=== PATIENT | female | born 1965 | race African-American/Black ===

== ENCOUNTER 2017-09-11 09:52 | Emergency (ER) | payer MEDICARE, SELFPAY ==
[2017-09-11 09:53] VITALS: BP 184/118; PULSE 96; RESP 20; TEMP 36.6; O2SAT 97; BMI 26.9
--- NOTE | 2017-09-11 10:06 | EKG12_ITS ---
Test Reason : CP Blood Pressure : / mmHG Vent. Rate : 085 BPM Atrial Rate : 085 BPM P-R Int : 184 ms QRS Dur : 084 ms QT Int : 372 ms P-R-T Axes : 073 069 049 degrees QTc Int : 442 ms Normal sinus rhythm Normal ECG Confirmed by JUANY JOSEPH ([id number]), power line installer SAY LITTLE ([id number]) on 09/13/2017 12:03:47 PM Referred By: HEATHER Confirmed By:JUANY JOSEPH
--- NOTE | 2017-09-11 10:07 | CT_ITS ---
STUDY: CTA CHEST REASON FOR EXAM: Female, 51 years old. 3 week history of a chest pain. History of sarcoidosis. RADIATION DOSAGE (If Supplied By Facility): CTDIvol = ( 11.62 ) mGy, DLP = ( 380.11 ) mGycm TECHNIQUE: The examination was performed with the intravenous administration of 75mL ml of Isovue 370 contrast material. Post-processing of the angiographic images was performed, with multiplanar reformation and 3D reconstruction. Individualized dose optimization techniques were used for this CT. COMPARISON: Comparison is made with prior examination dated October 30, 2016. FINDINGS: Normal enhancement of the main pulmonary artery and right and left pulmonary arteries. Normal enhancement of the bilateral peripheral pulmonary arteries. There is no demonstrated pulmonary embolism. Normal thoracic aorta and visualized great vessels. There is no demonstrated aortic dissection. Normal heart and pericardium. Normal mediastinum. There are bilateral hilar lymph nodes, which are normal in size and morphology. Normal visualized trachea and bronchi. The lungs are well expanded. There is evidence of a bronchiectasis and multiple cystic changes in the right upper lobe suggestive of scarring. Mild loss in the right upper lobe. There is also dense of bronchiectasis and cystic changes in the posterior aspect of the left upper lobe abutting the major fissure. Bronchiectasis is also seen in the right lower lobe as well as in the left lower lobe and lingular segment of the left upper lobe. This is in keeping with a honeycombing. Normal pleura. Normal chest wall structures. Normal osseous structures. Normal visualized upper abdomen. CT/CTA Chest W/WO Contrast IMPRESSION: There is no evidence of pulmonary embolism. Findings in keeping with honeycombing and interstitial fibrosis in both lungs suggest above the end-stage sarcoidosis. Electronically Signed: Fredy Olmos MD at 11:21 EST Tel [phone], Service support ,
--- NOTE | 2017-09-11 10:12 | ED.DCSUM_ITS ---
- ER Visit Summary Date of Service: 09/11/17 Chief Complaint: Chest pain History of Present Illness: The patient is a 51 F presenting with chest pain ?2- 1/2 weeks. Patient states this has been constant all day, every day. She saw her primary care physician 2.5 weeks ago who diagnosed her with pleurisy. He sent her to her sarcoidosis specialist in [place] Dr. Canales. She has a CT scheduled for later this week. She is concerned due to the persistence of the pain. She has been taking ibuprofen, oxycodone. She complains of sharp chest pain which is worsened with coughing and breathing. She has a history of sarcoidosis. She is not a smoker. No other complaints. Physical Examination: Vitals are stable. Patient is afebrile. Alert no acute distress. HEENT exam is unremarkable. Neck is supple. Lungs are clear and equal bilaterally. Right chest wall tenderness with no crepitus Heart is regular rate and rhythm. Abdomen is soft nontender nondistended. No guarding or rebound Extremities are unremarkable. Skin is warm and dry. No rash No focal neurologic deficit. Remainder of exam is unremarkable. Emergency Department Course and Treatment: EKG is sinus rate of 85 with no acute ischemic changes. She was given Dilaudid and Zofran IV. CBC shows a white count 11.8, hemoglobin 11.0. Chemistries unremarkable. Troponin is negative. CTA chest shows there is no evidence of pulmonary embolism. Findings in keeping with honeycombing and interstitial fibrosis in both lungs suggest above the end-stage sarcoidosis. Patient is feeling improved. She states she has been dealing with her sarcoidosis for several years. She is aware that it is end-stage. She will follow-up with her specialist in [place]. She is advised to continue her oxycodone as directed. Advised return ED if worsening complaints. Disposition: Discharge home Impression: Pleuritic chest pain This note was generated with [employer] dictation software. It may contain incorrect words, spelling, and punctuation that were not noted in review of the chart prior to signing ED Disposition - Plan for ED Patient: Chief Complaint: Chest Pain Referrals: John Sears MD [Primary Care Provider] -
[2017-09-11] MEDS: Ondansetron 4 MG/2 ML Vial IV (10:29)
[2017-09-11] MEDS: HYDROmorphone HCL 0.5 MG/0.5 ML SYRINGE IV (10:29)
[2017-09-11 10:34] LABS: Absolute Lymphocyte Count 3.58 X10^3/ul (0.83-4.51); Absolute Neutrophil Count 5.6 X10^3/uL (2.0-7.7); Basophil# 0.15 X10^3/uL; Basophil% 1.3 % (0-1); Differential Indicated SCAN CRITERIA MET; Eosinophil# 0.86 X10^3/uL; Eosinophils% 7.3 % (0-5); Hematocrit 31.9 % (37-47); Lymphocyte # 3.58 X10^3/ul (4.0); Lymphocyte % 30.3 % (19-41); Mean Corp Hgb Conc 34.5 g/gl (32-36); Mean Corpuscular Volume 84.2 fL (81-99); Mean Platelet Vol. 8.6 fl (6.2-12.0); Monocyte# 1.62 X10^3/uL; Monocyte% 13.7 % (0-10); Neutrophil # 5.57 X10^3/uL (2.7-7.7); Neutrophil % 47.2 % (47-70); POSITIVE COUNT NO; POSITIVE DIFFERENTIAL YES; POSITIVE MORPHOLOGY NO; Platelet Count 326 K/mm3 (150-450); RBC Distribution Width CV 15.2 % (11.6-14.6); RBC Distribution Width SD 46.3 fl (35.1-43.9); Red Blood Count 3.79 M/mm3 (4.2-5.4); White Blood Count 11.8 K/mm3 (4.4-11.0)
[2017-09-11 10:43] LABS: Anion Gap 9 (5-15); BUN 9 mg/dL (7-18); BUN/Creat Ratio 9.1 RATIO (10-20); Calcium,Total 8.7 mg/dL (8.5-10.1); Chloride 108 mmol/L (98-107); Creatinine, Serum 0.99 mg/dL (0.55-1.02); Differential Comment SCANNED; EST Glomerular Filtration Rate 63 mL/min (>60); Est Glom Filt Rate - Afr Amer 76 mL/min (>60); Estimated Creatinine Clearance 53.17 ml/min; Glucose 87 mg/dL (70-110); Potassium 4.3 mmol/L (3.5-5.1); Sodium Level 139 mmol/L (136-145)
--- NOTE | 2017-09-11 12:02 | ED.DEP ---
ED Disposition - Plan for ED Patient: Chief Complaint: Chest Pain Instructions: ED Chest Pain Pleurisy Prescriptions: Lidocaine [Lidoderm Patch] 1 patch TOPICAL DAILY #5 patch Referrals: John Sears MD [Primary Care Provider] -
== END 2017-09-11 12:36 | disposition home or self-care (01) ==
LOC: ED 10:15
PROVIDERS: Emergency Provider Emergency Medicine; Family Provider Family Medicine; PCP Family Medicine
DX: R09.1 Pleurisy (principal); D86.9 Sarcoidosis, unspecified; Z79.52 Long term (current) use of systemic steroids; Z79.899 Other long term (current) drug therapy
CPT/HCPCS: 71275; 80048; 84484; 85025; 93005; 96374; 96375; 99285; Q9967; A4216; J2405

== ENCOUNTER 2017-10-04 10:40 | Emergency (ER) | payer MEDICARE, SELFPAY ==
[2017-10-04 10:41] VITALS: BP 130/91; PULSE 101; RESP 22; TEMP 36.7; O2SAT 98; BMI 27.6
--- NOTE | 2017-10-04 11:02 | ED.VISSUMM ---
- ER Visit Summary Date of Service: 10/04/17 Chief Complaint: Headache and nasal congestion that started yesterday History of Present Illness: The patient is a 51 F who presents with frontal headache, nasal congestion and hoarse voice that started yesterday. She does complain of cough that is productive. She denies fever, chills night sweats. She denies photophobia, blurred vision, loss of vision or double vision. Denies earache. She denies chest pain or shortness of breath. She denies any leg pain, swelling or discoloration. She denies rash. She has a history of sarcoidosis and hypertension. Physical Examination: Signs are remarkable blood pressure 130/91, heart rate 101 respiratory 22. She does not appear in any distress. There is no frontal, ethmoid or maxillary sinus tenderness. Nares are remarkable for clear drainage. TMs normal. Posterior pharynx reveals postnasal drainage. Uvula is midline. There is no exudate. Trachea is midline with no stridor. Voice is hoarse. Lungs are clear to auscultation with good movement of air bilateral. Heart is rapid and regular without murmur, gallop or rub There is no asymmetry, swelling, discoloration, leg vein distention, palpable cords or tenderness along the distribution of the deep venous system. Test Results: None Emergency Department Course and Treatment: Patient was told she has an upper respiratory infection and her discomfort is from sinus pressure. She does not have a sinus infection. Treatment Plan: Decongestant/nasal spray as instructed on the vial. Disposition: Discharged to home Impression: 1. Acute viral upper respiratory infection 2. Sinus pressure headache This note was generated with [employer] dictation software. It may contain incorrect words, spelling, and punctuation that were not noted in review of the chart prior to signing ED Disposition - Plan for ED Patient: Disposition: Home or Assisted Living Chief Complaint: Headache Instructions: ED Headache Sinus, ED URI Viral Prescriptions: Oxymetazolone 0.05% [Afrin (BKC)] 15 spray NASAL BID #1 spray.btl Referrals: John Sears MD [Primary Care Provider] - 10-14 Days if not better Additional Instructions: Your prescription was electronically transmitted to [facility]
[2017-10-04 11:20] VITALS: BP 129/76; PULSE 71; RESP 16; O2SAT 98
== END 2017-10-04 11:21 | disposition home or self-care (01) ==
LOC: ED 11:19
PROVIDERS: Emergency Provider Emergency Medicine; Family Provider Family Medicine; PCP Family Medicine
DX: J06.9 Acute upper respiratory infection, unspecified (principal); D86.9 Sarcoidosis, unspecified; J44.9 Chronic obstructive pulmonary disease, unspecified; I10 Essential (primary) hypertension; Z72.0 Tobacco use; Z79.899 Other long term (current) drug therapy
CPT/HCPCS: 99284

== ENCOUNTER 2017-10-19 10:51 | Emergency (ER) | payer MEDICARE, SELFPAY ==
[2017-10-19 10:51] VITALS: BP 98/72; PULSE 112; RESP 23; TEMP 36.3; O2SAT 93; BMI 28.8
--- NOTE | 2017-10-19 11:07 | CT_ITS ---
STUDY: CT ABDOMEN AND PELVIS WITH CONTRAST REASON FOR EXAM: Female, 51 years old. Right lower quadrant pain and hypotension. Patient has a history of sarcoidosis. RADIATION DOSAGE (If Supplied By Facility): CTDIvol = ( 13.15 ) mGy, DLP = ( 653.14 ) mGycm TECHNIQUE: Transaxial images were obtained from the dome of the diaphragm to the symphysis pubis without oral contrast. 100ML ml of Isovue 300 contrast was administered. Sagittal and coronal images were reconstructed. Individualized dose optimization techniques were used for this CT. COMPARISON: Comparison is made with prior study dated November 02, 2015. FINDINGS: Once again, is evidence of interstitial fibrosis at the lung bases with multiple cystic changes in keeping with bronchiectasis and honeycombing. There is superimposed groundglass appearance most likely secondary to the progressive scarring. The visualized portions of the heart are within normal limits. Normal liver. Normal gallbladder and extrahepatic biliary system. Normal spleen. Normal pancreas. Normal bilateral adrenal glands. There are 2 small cysts in the upper midportion of the right kidney. Normal left kidney. Normal visualized stomach. Normal small intestine. Normal colon. The appendix is visualized and appears normal. There is scattered atherosclerotic calcification of the abdominal aorta, without a demonstrated aneurysm. Normal inferior vena cava. Normal retroperitoneum. Normal urinary bladder. Normal abdominal wall. Disc space narrowing and disc degeneration at the L5-S1 level. CT/Abdomen/Pelvis W IV Cont ONLY IMPRESSION: Chronic changes at the lung bases. Stable small cysts in the right kidney. No acute abnormality is seen. Electronically Signed: Fredy Olmos MD at 13:07 EST Tel [phone], Service support ,
--- NOTE | 2017-10-19 11:07 | EKG12_ITS ---
Test Reason : NAUSEA Blood Pressure : / mmHG Vent. Rate : 105 BPM Atrial Rate : 105 BPM P-R Int : 154 ms QRS Dur : 080 ms QT Int : 352 ms P-R-T Axes : 066 098 042 degrees QTc Int : 465 ms Sinus tachycardia Otherwise normal ECG Confirmed by NIDIA GONZALES, MARCELINO ([id number]), editor in chief newspaper SAY LITTLE ([id number]) on 10/23/2017 4:35:48 PM Referred By: SHARI Confirmed By:MARCELINO JACOB MD
--- NOTE | 2017-10-19 11:14 | ED.DCSUM_ITS ---
- ER Visit Summary Date of Service: 10/19/17 Chief Complaint: Abdominal pain History of Present Illness: The patient is a 51 F presenting with 2 days of gradual onset vomiting followed by right lower quadrant pain that is not worse. Also dyspnea and nonproductive cough for the past week, also gradual in onset. History of pulmonary sarcoidosis. States she had a normal bowel movement today, no blood, diarrhea, constipation. Has had no diarrhea with this. No known sick contacts with similar. No known fevers. She had a bilateral tubal ligation in the past, no other abdominal surgeries. Physical Examination: Acute distress. Abdomen tender in the right lower quadrant, no guarding or rebound tenderness. Positive so as sign, negative obturator, Rovsing signs. No other areas of abdominal tenderness. No distention. Hypoactive bowel sounds. Lungs are diminished throughout, inspiratory wheezes, no rhonchi or rales or respiratory distress. No peripheral edema. No JVD. Test Results: Leukocytosis of 28, she has had white counts higher than this in the past. She has chronic leukocytosis. Mild creatinine elevation of 1.3. Urine shows 500 leukocyte esterase, some white blood cells, but more epithelials. Negative nitrite. Sent for culture. CT abdomen/pelvis negative for acute abnormality. Emergency Department Course and Treatment: Since the hospital is out of [facility], patient was given Phenergan in addition to some morphine for the pain. On reevaluation she feels better and is tolerating oral fluids without difficulty. She provides additional history, saying that because of her upper respiratory symptoms, she was prescribed Augmentin shortly before the symptoms started by her sarcoidosis/pulmonary clinic in [facility]. She states that she took Augmentin the first day and felt a little nauseated, but the next day she started vomiting uncontrollably and has not taken the medicine since. She has no urinary symptoms, so instead of starting her on another antibiotic, given the negative chest x-ray, I advised supportive care along with prn Phenergan, and following up at the pulmonary clinic, discontinuing the Augmentin. I will not place her on a new antibiotic at this time given her GI reaction to this and other antibiotics in the past, unless the urine culture returns positive. She is asking for applied mathematician that is closer to see. I will give her a referral to [facility] pulmonology. Treatment Plan: Prn promethazine, f/u Disposition: Discharge home Impression: Acute gastritis Right lower quadrant abdominal muscular strain Interstitial lung disease Pulmonary sarcoidosis This note was generated with [employer] dictation software. It may contain incorrect words, spelling, and punctuation that were not noted in review of the chart prior to signing ED Disposition - Plan for ED Patient: Disposition: Home or Assisted Living Chief Complaint: Nausea/Vomiting Instructions: ED Gastritis Prescriptions: ProMETHAzine [Phenergan] 25 mg PO Q6H PRN PRN #12 tab PRN Reason: Nausea Referrals: Chris White MD [NON-STAFF] - ([facility] pulmonology) John Sears MD [Primary Care Provider] - Additional Instructions: Discontinue Augmentin. Contact your sarcoidosis specialist who prescribed the medication for further instructions regarding possible new prescription.
[2017-10-19] MEDS: Ipratropium/Albuterol Sulfate 3 ML AMPUL.NEB INHALATION (11:19)
[2017-10-19 11:22] VITALS: PULSE 106; RESP 20
[2017-10-19] MEDS: Ondansetron 4 MG/2 ML Vial IV (11:38)
[2017-10-19] MEDS: 0.9% Normal Saline 1,000 ML 999 ML IV (11:38)
[2017-10-19 11:41] LABS: ALB/GLOB Ratio 0.6 RATIO (0.9-2.4); AST(SGOT) 18 U/L (15-37); Alanine Aminotransfer ALT/SGPT 11 U/L (13-56); Alkaline Phosphatase 105 U/L (45-117); Anion Gap 8 (5-15); BUN 15 mg/dL (7-18); BUN/Creat Ratio 12.1 RATIO (10-20); Calcium,Total 8.8 mg/dL (8.5-10.1); Chloride 100 mmol/L (98-107); Creatinine, Serum 1.24 mg/dL (0.55-1.02); EST Glomerular Filtration Rate 48 mL/min (>60); Est Glom Filt Rate - Afr Amer 58 mL/min (>60); Estimated Creatinine Clearance 42.45 ml/min; Glucose 121 mg/dL (74-106); Potassium 3.5 mmol/L (3.5-5.1); Sodium Level 134 mmol/L (136-145)
[2017-10-19 11:48] LABS: Red Blood Count 4.19 M/mm3 (4.2-5.4); White Blood Count 28.6 K/mm3 (4.4-11.0)
[2017-10-19 11:49] LABS: Differential Indicated SCAN CRITERIA MET; Hematocrit 36.1 % (37-47); Hemoglobin 12.5 g/dl (12.0-15.0); Mean Corp Hgb Conc 34.6 g/gl (32-36); Mean Corpuscular Hgb 29.8 pg (27.0-32.0); Mean Corpuscular Volume 86.2 fL (81-99); Mean Platelet Vol. 10.5 fl (6.2-12.0); POSITIVE COUNT NO; POSITIVE DIFFERENTIAL YES; POSITIVE MORPHOLOGY NO; Platelet Count 314 K/mm3 (150-450); RBC Distribution Width CV 14.3 % (11.6-14.6); RBC Distribution Width SD 44.4 fl (35.1-43.9)
[2017-10-19 11:50] LABS: Absolute Lymphocyte Count 1.31 X10^3/ul (0.83-4.51); Absolute Neutrophil Count 25.9 X10^3/uL (2.0-7.7); Basophil# 0.04 X10^3/uL; Basophil% 0.1 % (0-1); Eosinophil# 0.04 X10^3/uL; Eosinophils% 0.1 % (0-5); Lymphocyte # 1.31 X10^3/ul (4.0); Lymphocyte % 4.6 % (19-41); Monocyte# 1.23 X10^3/uL; Monocyte% 4.3 % (0-10); Neutrophil # 25.91 X10^3/uL (2.7-7.7); Neutrophil % 90.6 % (47-70)
[2017-10-19 11:56] LABS: Absolute Nucleated RBC Count 0.08 10^3/uL (0-5); NRBC Flagged by Analyzer 0.3 % (0-5)
--- NOTE | 2017-10-19 12:23 | RAD_ITS ---
STUDY: X-RAY CHEST REASON FOR EXAM: Female, 51 years old. Shortness of breath. TECHNIQUE: PA and lateral views of the chest. COMPARISON: Comparison is made with prior study dated August 13, 2017. FINDINGS: EKG electrodes are seen. Benign was evidence of diffuse bilateral airspace disease superimposed on chronic interstitial fibrosis with honeycombing. There is no demonstrated pleural abnormality. Normal size heart. Mildly enlarged bilateral jordin most likely representing small lymph nodes. Normal visualized pulmonary arteries. Normal visualized aortic arch and descending thoracic aorta. Normal visualized thoracic spine. Normal visualized ribs, clavicles, and shoulders. There is no demonstrated abnormality of the visualized soft tissue structures of the upper abdomen. RAD/Chest PA and Lateral IMPRESSION: New airspace disease in both lungs superimposed on chronic interstitial fibrosis with honeycombing. Electronically Signed: Fredy Olmos MD at 13:14 EST Tel [phone], Service support ,
[2017-10-19 12:53] LABS: Bacteria 0 SEEN /hpf (None Seen); Mucous, Urine 0 SEEN /hpf (<or=2+); Red Blood Cells-Urine 0 SEEN /hpf (0-5)
[2017-10-19 12:59] LABS: Color, Urine Yellow (Yellow); Glucose, Dipstick Normal (Normal); Ketone-Dipstick Negative (Negative); Leukocyte Esterase-Dipstick 500 /ul (Negative); Nitrite-Dipstick Negative (Negative); Occult Blood-Urine 10 /ul (Negative); Protein-Dipstick 30 mg/dl (Negative); Urine Bilirubin Dipstick Negative (Negative); Urine Clarity Sl. Cloudy (Clear); Urine Urobilinogen Normal (Normal); Urine pH 6.5 (5.0 - 8.0)
[2017-10-19 13:06] VITALS: BP 96/65; PULSE 103; RESP 24; O2SAT 100
[2017-10-19 13:06] LABS: Squamous Epithelial Cells - UA 25-50 SEEN /hpf (5-10); White Blood Cells 10-25 SEEN /hpf (0-5)
[2017-10-19 14:08] VITALS: BP 95/70; PULSE 106; RESP 20; O2SAT 90
[2017-10-19 15:01] VITALS: BP 105/72; PULSE 100; RESP 20; O2SAT 91
[2017-10-19 15:58] VITALS: BP 124/91; PULSE 77; RESP 16; O2SAT 94
== END 2017-10-19 15:59 | disposition home or self-care (01) ==
PROVIDERS: Emergency Provider Emergency Medicine; Family Provider Family Medicine; PCP Family Medicine
DX: K29.00 Acute gastritis without bleeding (principal); J84.9 Interstitial pulmonary disease, unspecified; D86.0 Sarcoidosis of lung; S39.011A Strain of muscle, fascia and tendon of abdomen, initial encounter; X58.XXXA Exposure to other specified factors, initial encounter; Y92.9 Unspecified place or not applicable; I10 Essential (primary) hypertension; Z79.899 Other long term (current) drug therapy
CPT/HCPCS: 71046; 74177; 80053; 81001; 84484; 85025; 87086; 87088; 93005; 94640; 96361; 96374; 96375; 99285; J7030; Q9967; J2405

== ENCOUNTER 2018-01-17 15:03 | Inpatient (IN) | payer MEDICARE, SELFPAY ==
[2018-01-17] VITALS (16 sets, daily range): BP systolic 153–189; BP diastolic 99–139; PULSE 80–119; RESP 12–39; TEMP 36.3–36.4; O2SAT 94–100; BMI 24.3; BMI 27.6
--- NOTE | 2018-01-17 15:20 | CT_ITS ---
STUDY: CT BRAIN WITHOUT CONTRAST REASON FOR EXAM: Female, 52 years old. Altered mental status RADIATION DOSAGE (If Supplied By Facility): CTDIvol = ( 44.99 ) mGy, DLP = ( 711.75 ) mGycm TECHNIQUE: Transaxial CT imaging of the brain was performed without administration of intravenous contrast material. Individualized dose optimization techniques were used for this CT. COMPARISON: 01/23/2017 FINDINGS: There is no acute bleed or infarct. There are normal white matter tracts. The ventricles are normal in configuration. There is no hydrocephalus. The visualized paranasal sinuses are clear. The mastoid air cells are well aerated. There is no skull fracture. CT/Brain/Head without Contrast IMPRESSION: No acute intracranial abnormality. Electronically Signed: Momo Andres, at 16:24 EDT Tel , Service support ,
--- NOTE | 2018-01-17 15:20 | EKG12_ITS ---
Test Reason : ALT LOC Blood Pressure : / mmHG Vent. Rate : 110 BPM Atrial Rate : 110 BPM P-R Int : 184 ms QRS Dur : 084 ms QT Int : 344 ms P-R-T Axes : 072 092 047 degrees QTc Int : 465 ms Sinus tachycardia Right atrial enlargement Borderline ECG Confirmed by JUANY JOSEPH ([id number]), communications editor SAY LITTLE ([id number]) on 01/28/2018 6:33:24 PM Referred By: SARAH Confirmed By:JUANY JOSEPH
[2018-01-17] MEDS: 0.9% Normal Saline 1,000 ML 1000 ML IV (15:41)
--- NOTE | 2018-01-17 15:48 | ED.DCSUM_ITS ---
- ER Visit Summary Date of Service: 01/17/18 Chief Complaint: Really sleepy History of Present Illness: The patient is a [address] John Sears. She is a poor informant. She reports that for the past 2 days she has been sleeping more than usual. On review of systems she complains of chills. She has a chronic cough that is unchanged. States that she is short of breath, but it is not severe enough that she has been wearing her home O2. She denies any abdominal pain, nausea, vomiting, or diarrhea. No dysuria or frequency. No rash or headache. She complains of generalized weakness. Physical Examination: Vitals: 97.5, 182/139, 116, 37, 98% on 3 L nasal cannula. General: Well-nourished and well-developed. Head: Normocephalic atraumatic. Neck: Supple, no lymphadenopathy. No JVD. Nontender. Cardiovascular: Tachycardic regular rhythm. No murmurs. Respiratory: No respiratory distress. Clear to auscultation bilaterally. Abdominal: Soft, nontender, nondistended, normal bowel sounds. No guarding, rebound, or peritoneal signs. Back: Nontender. Extremities: Nontender, no edema. Skin: Normal color, no rash. Neurologic: Alert and oriented ?3. Cranial nerves II through XII are intact. Normal strength and sensation. Psych: Normal affect. Test Results: EKG is sinus tachycardia [address] changes. Is unchanged since October. CBC is more for a white count of 22.2 with 77 segmented neutrophils and 8 lymphocytes. Her last white count was 28.6 on October 19. Her white count has ranged between 11.8 and 34.4 since 2016. Chem-7 is more for BUN of 43 and glucose of 125. LFTs marked for total protein 8.9 globulin 5.0. Alk phos is 173. Ammonia level is 30. UA has greater than 100 whites and 10- 25 red blood cells with 4+ bacteria. Also shows trichomonas. Troponin is negative. CPK is 55. Tox screen is negative. Alcohol level is negative. Lactic acid is 1.9. Chest x-ray shows chronic changes of bronchiectasis and sarcoidosis. It is improved since October of this year. CT brain shows no acute disease. ABG shows a pH of 7.315 with a CO2 of 53.3. Repeat ABG after approximately 90 minutes on BiPAP shows a pH of 7.3 with a CO2 is 55.3. Emergency Department Course and Treatment: Patient had not taken her Cozaar today. She was given that orally. She was also given 20 mg of labetalol IV. Patient was given albuterol and Atrovent aerosols. She is given Solu-Medrol IV. She was given Rocephin IV for the UTI and Flagyl IV for the trichomonas. Despite the fact the patient's CO2 has elevated slightly from her prior ABG the patient is much more awake and conversant. She does not need to be intubated. Treatment Plan: Patient was discussed with Dr. Blankenship. She will be admitted to the hospital for further evaluation and treatment. Disposition: Admitted in improved but serious condition. Impression: 1. UTI. 2. Trichomonas vaginitis. 3. Acute on chronic respiratory failure, on BiPAP. 4. Critical care time 30 minutes. This note was generated with [employer] dictation software. It may contain incorrect words, spelling, and punctuation that were not noted in review of the chart prior to signing ED Disposition - Plan for ED Patient: Chief Complaint: Alt LOC
[2018-01-17 15:55] LABS: Bedside Glucose 156 mg/dL (70-110)
--- NOTE | 2018-01-17 16:10 | RAD_ITS ---
STUDY: X-RAY CHEST REASON FOR EXAM: Female, 52 years old. Shortness of breath TECHNIQUE: Frontal and lateral views of the chest COMPARISON: 10/19/2017 and 08/13/2017 FINDINGS: When compared with 10/19/2017, the previously seen bilateral airspace opacities have resolved. There are stable fibrotic changes when compared with 07/24/2017. There are no pleural effusions. The heart is normal in size. The visualized osseous structures are within normal limits. RAD/Chest PA and Lateral IMPRESSION: Stable fibrotic changes when compared with 07/24/2017. Resolution of the superimposed airspace opacities that were seen on 10/19/2017. Electronically Signed: Momo Andres, at 16:36 EDT Tel , Service support ,
[2018-01-17 16:11] LABS: Allen Test POS; Base Excess 1 mmol/L (-2 to +2); Bicarbonate 27.2 mmol/L (22-26); Blood Gas Specimen Type ART; O2 Delivery Device Nasal Can; PO2 102 mmHG (75-100); SITE L Radial; SO2 97 % (95-99); Time Given 1600; Total Carbon Dioxide 29 mmol/L; pCO2 53.3 mmHg (35-45); pH 7.32 (7.35-7.45)
[2018-01-17 16:12] LABS: Absolute Lymphocyte Count 1.77 X10^3/ul (0.83-4.51); Absolute Neutrophil Count 17.2 X10^3/uL (2.0-7.7); Basophil# 0.09 X10^3/uL; Basophil% 0.4 % (0-1); Eosinophil# 0.18 X10^3/uL; Eosinophils% 0.8 % (0-5); Hematocrit 40.2 % (37-47); Hemoglobin 13.9 g/dl (12.0-15.0); Lymphocyte # 1.77 X10^3/ul (4.0); Mean Corp Hgb Conc 34.6 g/gl (32-36); Mean Corpuscular Hgb 28.7 pg (27.0-32.0); Mean Corpuscular Volume 83.1 fL (81-99); Mean Platelet Vol. 9.1 fl (6.2-12.0); Monocyte# 2.91 X10^3/uL; Monocyte% 13.1 % (0-10); Neutrophil # 17.16 X10^3/uL (2.7-7.7); Neutrophil % 77.4 % (47-70); Platelet Count 368 K/mm3 (150-450); RBC Distribution Width CV 15.4 % (11.6-14.6); RBC Distribution Width SD 46.3 fl (35.1-43.9); Red Blood Count 4.84 M/mm3 (4.2-5.4); White Blood Count 22.2 K/mm3 (4.4-11.0)
[2018-01-17 16:13] LABS: Differential Indicated SCAN CRITERIA MET; POSITIVE COUNT NO; POSITIVE DIFFERENTIAL YES; POSITIVE MORPHOLOGY NO
[2018-01-17] MEDS: Losartan Potassium 50 MG Tablet PO ×2 (16:15→22:20)
[2018-01-17 16:17] LABS: CPK Total, Creatine Kinase 55 U/L (26-192)
[2018-01-17 16:19] LABS: ALB/GLOB Ratio 0.8 RATIO (0.9-2.4); AST(SGOT) 18 U/L (15-37); Alanine Aminotransfer ALT/SGPT 21 U/L (13-56); Albumin, Serum 3.9 g/dL (3.2-5.0); Alkaline Phosphatase 173 U/L (45-117); Anion Gap 11 (5-15); BUN 43 mg/dL (7-18); BUN/Creat Ratio 43.7 RATIO (10-20); Calcium,Total 9.8 mg/dL (8.5-10.1); Chloride 100 mmol/L (98-107); Creatinine, Serum 0.98 mg/dL (0.55-1.02); EST Glomerular Filtration Rate 63 mL/min (>60); Est Glom Filt Rate - Afr Amer 76 mL/min (>60); Estimated Creatinine Clearance 50.67 ml/min; Glucose 125 mg/dL (74-106); Potassium 4.3 mmol/L (3.5-5.1); Protein, Total 8.9 g/dL (6.4-8.2); Sodium Level 137 mmol/L (136-145)
[2018-01-17 16:23] LABS: Lactic Acid 1.9 mmol/L (0.4-2.0)
[2018-01-17 16:43] LABS: Mucous, Urine 0 SEEN /hpf (<or=2+)
[2018-01-17 16:50] LABS: Absolute Nucleated RBC Count 0.06 10^3/uL (0-5); NRBC Flagged by Analyzer 0.3 % (0-5)
[2018-01-17 17:07] LABS: Color, Urine Yellow (Yellow); Glucose, Dipstick Normal (Normal); Ketone-Dipstick 50 mg/dl (Negative); Leukocyte Esterase-Dipstick 500 /ul (Negative); Nitrite-Dipstick Negative (Negative); Occult Blood-Urine 150 /ul (Negative); Protein-Dipstick 100 mg/dl (Negative); Urine Bilirubin Dipstick Negative (Negative); Urine Clarity Cloudy (Clear); Urine Urobilinogen Normal (Normal)
[2018-01-17 17:23] LABS: Amphetamine Urine VISTA NEGATIVE (<1000 ng/mL); Barbiturate Urine VISTA NEGATIVE (< 200 ng/mL); Benzodiazepine Urine VISTA NEGATIVE (< 200 ng/mL); Cocaine Urine VISTA NEGATIVE (< 300 ng/mL); Ecstacy Urine VISTA NEGATIVE (< 500 ng/mL); Methadone Urine VISTA NEGATIVE (< 300 ng/mL); PCP Urine VISTA NEGATIVE (< 25 ng/mL); THC Urine VISTA NEGATIVE (< 50 ng/mL); Vista UDS pH Range 6
[2018-01-17 17:42] LABS: Trichomonas 25-50 SEEN /hpf (None Seen); White Blood Cells >100 SEEN /hpf (0-5)
[2018-01-17 17:44] LABS: Bacteria 4+ /hpf (None Seen); Red Blood Cells-Urine 10-25 SEEN /hpf (0-5); Squamous Epithelial Cells - UA 5-10 SEEN /hpf (5-10)
[2018-01-17 17:45] LABS: Amorphous Sediment 4+
[2018-01-17 17:46] LABS: Allen Test POS; Base Excess 1 mmol/L (-2 to +2); Bicarbonate 27.4 mmol/L (22-26); Blood Gas Specimen Type ART; EPAP 5; FI02 30; IPAP 10; PO2 96 mmHG (75-100); RR 12; SITE L Radial; SO2 96 % (95-99); Time Given 1735; Total Carbon Dioxide 29 mmol/L; pCO2 55.3 mmHg (35-45)
[2018-01-17] MEDS: Ceftriaxone 1 GM/50 ML BAG IV (18:07)
[2018-01-17] MEDS: MethylPREDNISolone 125 MG/2 ML Vial IV (19:00)
--- NOTE | 2018-01-17 19:00 | HP.PCM_ITS ---
<Gaetano Prince - Last Filed: 01/17/18 18:46> Problem List (1) Sepsis Status: Acute (2) Cystitis Status: Acute (3) Acute metabolic encephalopathy Status: Acute (4) Chronic respiratory failure Status: Chronic (5) Bronchiectasis Status: Chronic (6) COPD (chronic obstructive pulmonary disease) Status: Chronic (7) HTN (hypertension) Status: Chronic (8) Sarcoidosis Status: Chronic History of Present Illness Date of Admission: 01/17/18 Chief Complaint: lethargy The patient is a 52 year old F with a hx of bronchiectasis, sarcoidosis, COPD, chronic respiratory failure on 4 lpm O2 at home, HTN, who presents to the ER with increased lethargy x 4 days. Her asked if she needed to come to the hospital this morning because she did not look well and seemed tired, however she stated she did not feel she needed to. Her neighbour found her later , more tired and more confused and called the squad. In the ER she seemed lethargic and an ABG was done showing CO2 retention and acidosis and she was placed on bipap. On exam she denied SOB. She states she has not been more SOB and has not had any worsening of her chronic cough. She is lethargic and closing her eyes, but she is responsive to questions. She states she does not want the bipap on. She wears O2 at all times at 4 lpm. She has no fever or chills, no nausea/vomiting/diarrhea/fever/chills/abdominal pain/dysuria. [] Past Medical History Past Medical History (Chronic Problems): Chronic Problems (Last Updated 10/01/17 @ 07:25 by Ivonne Sunshine) Chronic respiratory failure (Chronic) Chronic cough (Chronic) Bronchiectasis (Chronic) Asthma (Chronic) COPD (chronic obstructive pulmonary disease) (Chronic) Chronic pain (Chronic) Cough (Chronic) HTN (hypertension) (Chronic) Sarcoidosis (Chronic) Medical History: Medical History (Last Updated 10/01/17 @ 07:25 by Ivonne Sunsihne) Costochondritis, acute (Acute) M94.0 Acute upper respiratory infection (Acute) J06.9 Chronic cough (Chronic) R05 Bronchiectasis with acute exacerbation (Acute) J47.1 Acute suppurative otitis media (Acute) H66.009 Bronchiectasis (Chronic) J47.9 Acute exacerbation of chronic obstructive pulmonary disease (Acute) J44.1 Asthma (Chronic) J45.909 COPD (chronic obstructive pulmonary disease) (Chronic) J44.9 Chronic pain (Chronic) G89.29 Hypokalemia (Acute) E87.6 Left otitis media (Acute) H66.92 Hypokalemia (Acute) E87.6 Leukocytosis (Acute) D72.829 Chest pain (Acute) R07.9 unknown etiology Pleuritic chest discomfort (Acute) Cough (Chronic) R05 Overdose (Acute) T50.901A HTN (hypertension) (Chronic) I10 Sarcoidosis (Chronic) D86.9 Allergies cephalexin monohydrate [From Keflex] Allergy (Mild, Verified 01/17/18 15:09) Itching doxycycline Adverse Reaction (Verified 01/17/18 15:09) Vomiting moxifloxacin HCl [From Avelox] Adverse Reaction (Verified 01/17/18 15:09) Vomiting Home Medications: Ambulatory Orders Medication Instructions Recorded Albuterol Inhaler [Ventolin Hfa] 1 - 2 puff INHALATION Q6H PRN PRN 09/05/16 Losartan Potassium [Cozaar] 50 mg PO BID 09/06/16 HydrOXYzine [Atarax] 50 mg PO Q8 10/12/16 Leflunomide 20 mg PO DAILY 07/31/17 Albuterol Aerosols [Ventolin 2.5 mg INHALATION Q4H PRN PRN 08/13/17 Aerosols] Sulfamethoxazole/Trimethoprim 1 tab PO MOWEFR 08/13/17 [Sulfamethoxazole-Tmp Ds Tablet] Oxymetazoline 0.05% [Afrin (BKC)] 15 spray NASAL BID #1 spray.btl 10/04/17 Cholecalciferol (Vitamin D3) 5,000 unit PO QWEEK 01/17/18 [Vitamin D3] Clonidine HCl 0.2 mg PO Q8 01/17/18 Duloxetine HCl 20 mg PO DAILY 01/17/18 Levocetirizine Dihydrochloride 5 mg PO DAILY 01/17/18 [Xyzal] Mometasone Furoate [Elocon] 15 gm TP BID 01/17/18 Naproxen 500 mg PO BID PRN PRN 01/17/18 Oxycodone [Oxyir] 5 mg PO Q6H PRN PRN 01/17/18 Paroxetine HCl [Paxil] 30 mg PO BID 01/17/18 Prednisone See Taper PO DAILY 01/17/18 Tizanidine HCl 4 mg PO BID 01/17/18 proMETHazine tablet [Phenergan] 12.5 mg PO Q6H PRN PRN 01/17/18 Surgical History: Surgical History (Last Updated 10/01/17 @ 07:25 by Ivonne Sunshine) History of lung biopsy (Resolved) Z98.890 History of tubal ligation (Resolved) Z98.51 Surgical History: - - BLTL. 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 Denies: Chills, Fever, Weight Change HEENT: Denies: Head Aches, Sinus Congestion, Sinus Drainage Cardiovascular: Denies: Chest Pain, Palpitations Respiratory: Denies: Cough, Shortness of Breath, Shortness of breath at rest, Shortness of breath upon exertion, Sputum production, Wheezing Gastrointestinal: Denies: Abdominal Pain, Nausea, Vomiting Genitourinary: Denies: Dysuria Musculoskeletal: Denies: Joint Pain, Joint Tenderness Skin: Denies: Rash, Wounds Neurological: Denies: Numbness, Tingling, Focal weakness Psychiatric: Denies: Anxiety, Depression, Homicidal Ideations, Suicidal Ideations Hematologic/ Lymphatic: Denies: Easy Bruising, Easy Bleeding VTE Information - Inpt Only VTE Present on Admission: No VTE Mechan Device Prophylaxis: None VTE Pharm Prophylaxis ordered?: Yes Patient Problems: Active and Suspected Problems (Last Updated 10/01/17 @ 07:25 by Ivonne Sunshine) Cystitis (Acute) Acute metabolic encephalopathy (Acute) Sepsis (Acute) - Physical Exam General: Alert, Oriented x3, Cooperative HEENT: Atraumatic, PERRLA, EOMI, Normocephalic Neck: Supple, No JVD, Negative Carotid Bruits Lungs: Clear to auscultation, Normal air movement, - - shallow Cardiovascular: Regular rate, No murmurs Abdomen: Bowel Sounds Present, Soft, Non Tender Extremities: No edema, Capillary Refill Less than 3 Seconds Skin: No rashes, No breakdown Musculoskeletal: No Tenderness to Palpation of Joints or Extremities Neurological: Cranial nerves II-XII grossly intact Psych/Mental Status: Normal Affect, Appropriate, Alert and oriented to time, place, person, mood and affect Vital Signs Temp Pulse Resp BP Pulse Ox 97.5 F L 88 35 H 168/111 H 98 01/17/18 15:04 01/17/18 18:19 01/17/18 18:19 01/17/18 18:19 01/17/18 18:19 Oxygen Flow Rate (L/min) 3 Oxygen Delivery Method Nasal Cannula Weight: 58.3 kg Body Mass Index (BMI) 24.3 Finger Stick Blood Glucose 156 Laboratory Tests Past 24 Hrs 01/17/18 01/17/18 01/17/18 15:40 15:40 15:40 WBC 22.2 H RBC 4.84 Hgb 13.9 Hct 40.2 MCV 83.1 MCH 28.7 MCHC 34.6 RDW 15.4 H RDW Differential 46.3 H Plt Count 368 MPV 9.1 Immature Gran % (Auto) 0.300 Neut % (Auto) 77.4 H Lymph % (Auto) 8.0 L Glynn % (Auto) 13.1 H Eos % (Auto) 0.8 Baso % (Auto) 0.4 Absolute Neuts (auto) 17.2 H Absolute Lymphs (auto) 1.77 Total Counted Not Reportable Nucleated RBC % 0.3 Differential Comment Diff Path Review May foll Absolute Retic 0.06 Specimen Type Sample Site pH Bicarbonate Actual POC Total CO2 Base Excess O2 Saturation O2 % ABG pCO2 ABG pO2 Kendell Test Respiration Rate O2 Delivery Device Liter Flow EPAP IPAP Blood Gas Notified Whom Blood Gas Notified Time Sodium 137 Potassium 4.3 Chloride 100 Carbon Dioxide 26.0 Anion Gap 11 BUN 43 H Creatinine 0.98 Estim Creat Clear Calc 50.67 Est GFR (MDRD) Af Amer 76 Est GFR (MDRD) Non-Af 63 BUN/Creatinine Ratio 43.7 H Glucose 125 H Lactic Acid Calcium 9.8 Total Bilirubin 0.60 AST 18 ALT 21 Alkaline Phosphatase 173 H Ammonia Total Creatine Kinase Troponin I < 0.015 Total Protein 8.9 H Albumin 3.9 Globulin 5.0 H Albumin/Globulin Ratio 0.8 L Urine Color Urine Clarity Urine pH Ur Specific [place] Urine Protein Urine Glucose (UA) Urine Ketones Urine Occult Blood Urine Nitrite Urine Bilirubin Urine Urobilinogen Ur Leukocyte Esterase Urine RBC Urine WBC Ur Squamous Epith Cells Amorphous Sediment Urine Bacteria Urine Mucus Urine Trichomonas Urine Opiates Screen Urine Methadone Screen Ur Barbiturates Screen Ur Phencyclidine Scrn Ur Amphetamines Screen U Methamphetamin-MDMA U Benzodiazepines Scrn Urine Cocaine Screen U Cannabinoids Screen Ur Drug Screen Comment Ethyl Alcohol 6.0 01/17/18 01/17/18 01/17/18 15:40 15:40 15:40 WBC RBC Hgb Hct MCV MCH MCHC RDW RDW Differential Plt Count MPV Immature Gran % (Auto) Neut % (Auto) Lymph % (Auto) Glynn % (Auto) Eos % (Auto) Baso % (Auto) Absolute Neuts (auto) Absolute Lymphs (auto) Total Counted Nucleated RBC % Differential Comment Diff Path Review Absolute Retic Specimen Type Sample Site pH Bicarbonate Actual POC Total CO2 Base Excess O2 Saturation O2 % ABG pCO2 ABG pO2 Kendell Test Respiration Rate O2 Delivery Device Liter Flow EPAP IPAP Blood Gas Notified Whom Blood Gas Notified Time Sodium Potassium Chloride Carbon Dioxide Anion Gap BUN Creatinine Estim Creat Clear Calc Est GFR (MDRD) Af Amer Est GFR (MDRD) Non-Af BUN/Creatinine Ratio Glucose Lactic Acid 1.9 Calcium Total Bilirubin AST ALT Alkaline Phosphatase Ammonia 30.0 Total Creatine Kinase 55 Troponin I Total Protein Albumin Globulin Albumin/Globulin Ratio Urine Color Urine Clarity Urine pH Ur Specific [place] Urine Protein Urine Glucose (UA) Urine Ketones Urine Occult Blood Urine Nitrite Urine Bilirubin Urine Urobilinogen Ur Leukocyte Esterase Urine RBC Urine WBC Ur Squamous Epith Cells Amorphous Sediment Urine Bacteria Urine Mucus Urine Trichomonas Urine Opiates Screen Urine Methadone Screen Ur Barbiturates Screen Ur Phencyclidine Scrn Ur Amphetamines Screen U Methamphetamin-MDMA U Benzodiazepines Scrn Urine Cocaine Screen U Cannabinoids Screen Ur Drug Screen Comment Ethyl Alcohol 01/17/18 01/17/18 01/17/18 16:03 16:35 16:35 WBC RBC Hgb Hct MCV MCH MCHC RDW RDW Differential Plt Count MPV Immature Gran % (Auto) Neut % (Auto) Lymph % (Auto) Glynn % (Auto) Eos % (Auto) Baso % (Auto) Absolute Neuts (auto) Absolute Lymphs (auto) Total Counted Nucleated RBC % Differential Comment Diff Path Review Absolute Retic Specimen Type ART Sample Site L Radial pH 7.32 L Bicarbonate Actual 27.2 H POC Total CO2 29 Base Excess 1 O2 Saturation 97 O2 % ABG pCO2 53.3 H ABG pO2 102 H Kendell Test POS Respiration Rate O2 Delivery Device Nasal Can Liter Flow 2.0 EPAP IPAP Blood Gas Notified Whom ED Blood Gas Notified Time 1600 Sodium Potassium Chloride Carbon Dioxide Anion Gap BUN Creatinine Estim Creat Clear Calc Est GFR (MDRD) Af Amer Est GFR (MDRD) Non-Af BUN/Creatinine Ratio Glucose Lactic Acid Calcium Total Bilirubin AST ALT Alkaline Phosphatase Ammonia Total Creatine Kinase Troponin I Total Protein Albumin Globulin Albumin/Globulin Ratio Urine Color Yellow Urine Clarity Cloudy Urine pH 6.0 Ur Specific [place] 1.020 Urine Protein 100 H Urine Glucose (UA) Normal Urine Ketones 50 H Urine Occult Blood 150 H Urine Nitrite Negative Urine Bilirubin Negative Urine Urobilinogen Normal Ur Leukocyte Esterase 500 H Urine RBC 10-25 SEEN Urine WBC >100 SEEN Ur Squamous Epith Cells 5-10 SEEN Amorphous Sediment 4+ Urine Bacteria 4+ Urine Mucus 0 SEEN Urine Trichomonas 25-50 SEEN Urine Opiates Screen NEGATIVE Urine Methadone Screen NEGATIVE Ur Barbiturates Screen NEGATIVE Ur Phencyclidine Scrn NEGATIVE Ur Amphetamines Screen NEGATIVE U Methamphetamin-MDMA NEGATIVE U Benzodiazepines Scrn NEGATIVE Urine Cocaine Screen NEGATIVE U Cannabinoids Screen NEGATIVE Ur Drug Screen Comment Ethyl Alcohol 01/17/18 17:39 WBC RBC Hgb Hct MCV MCH MCHC RDW RDW Differential Plt Count MPV Immature Gran % (Auto) Neut % (Auto) Lymph % (Auto) Glynn % (Auto) Eos % (Auto) Baso % (Auto) Absolute Neuts (auto) Absolute Lymphs (auto) Total Counted Nucleated RBC % Differential Comment Diff Path Review Absolute Retic Specimen Type ART Sample Site L Radial pH 7.30 L Bicarbonate Actual 27.4 H POC Total CO2 29 Base Excess 1 O2 Saturation 96 O2 % 30 ABG pCO2 55.3 H ABG pO2 96 Kendell Test POS Respiration Rate 12 O2 Delivery Device Bi / C PAP Liter Flow EPAP 5 IPAP 10 Blood Gas Notified Whom ED Blood Gas Notified Time 1735 Sodium Potassium Chloride Carbon Dioxide Anion Gap BUN Creatinine Estim Creat Clear Calc Est GFR (MDRD) Af Amer Est GFR (MDRD) Non-Af BUN/Creatinine Ratio Glucose Lactic Acid Calcium Total Bilirubin AST ALT Alkaline Phosphatase Ammonia Total Creatine Kinase Troponin I Total Protein Albumin Globulin Albumin/Globulin Ratio Urine Color Urine Clarity Urine pH Ur Specific [place] Urine Protein Urine Glucose (UA) Urine Ketones Urine Occult Blood Urine Nitrite Urine Bilirubin Urine Urobilinogen Ur Leukocyte Esterase Urine RBC Urine WBC Ur Squamous Epith Cells Amorphous Sediment Urine Bacteria Urine Mucus Urine Trichomonas Urine Opiates Screen Urine Methadone Screen Ur Barbiturates Screen Ur Phencyclidine Scrn Ur Amphetamines Screen U Methamphetamin-MDMA U Benzodiazepines Scrn Urine Cocaine Screen U Cannabinoids Screen Ur Drug Screen Comment Ethyl Alcohol POC Glucose 01/17/18 15:20 POC Glucose 156 H Assessment/Plan All Active Problems (Last Updated 10/01/17 @ 07:25 by Ivonne Sunshine) Cystitis (Acute) Acute metabolic encephalopathy (Acute) Sepsis (Acute) History of lung biopsy (Resolved) History of tubal ligation (Resolved) Costochondritis, acute (Acute) Acute upper respiratory infection (Acute) Bronchiectasis with acute exacerbation (Acute) Acute suppurative otitis media (Acute) Acute exacerbation of chronic obstructive pulmonary disease (Acute) Hypokalemia (Acute) Left otitis media (Acute) Hypokalemia (Acute) Leukocytosis (Acute) Chest pain (Acute) Pleuritic chest discomfort (Acute) Overdose (Acute) 1. Acute sepsis 2/2 Acute cystitis - criteria met with leukocytosis, + UA, tachypnea, pulse >90. presents with increased lethargy, no dysuria Hampton placed in ER. Lactate negative. Culture pending. + Trichomonas. Continue rocephin and flagyl. Multiple abx allergies. Follow final urine and blood c/s. 2. Acute metabolic encephalopathy - 2/2 cystitis and possibly CO2 retention. Tox screen neg. Hold atarax, oxycodone, tizanidine. 3. Chronic hypoxic respiratory failure - 2/2 bronchiectasis, COPD, and sarcoidosis. placed on bipap in ER 2/2 acidosis and co2 retention, but she does not feel that she needs this, I am not sure how much of this is chronic vs acute. Her CXR is improved since prior, showing bronchiectasis. Continue aerosols, Incentive spirometer. 4. Dehydration - elevated BUN, give IV fluids overnight. 5. HTN in ER - trend and adjust meds as needed. Continue home meds. DVT ppx: lovenox DC planning: PTOT. This patient was seen by Gaetano Prince PA-C under the supervision of Doctor Pattie. <Juanis Blankenshipcainmedrado E - Last Filed: 01/17/18 19:45> History of Present Illness The patient is a 52 year old F [] Past Medical History Medical History: Medical History (Last Updated 10/01/17 @ 07:25 by Ivonne Sunshine) Costochondritis, acute (Acute) M94.0 Acute upper respiratory infection (Acute) J06.9 Chronic cough (Chronic) R05 Bronchiectasis with acute exacerbation (Acute) J47.1 Acute suppurative otitis media (Acute) H66.009 Bronchiectasis (Chronic) J47.9 Acute exacerbation of chronic obstructive pulmonary disease (Acute) J44.1 Asthma (Chronic) J45.909 COPD (chronic obstructive pulmonary disease) (Chronic) J44.9 Chronic pain (Chronic) G89.29 Hypokalemia (Acute) E87.6 Left otitis media (Acute) H66.92 Hypokalemia (Acute) E87.6 Leukocytosis (Acute) D72.829 Chest pain (Acute) R07.9 unknown etiology Pleuritic chest discomfort (Acute) Cough (Chronic) R05 Overdose (Acute) T50.901A HTN (hypertension) (Chronic) I10 Sarcoidosis (Chronic) D86.9 Allergies cephalexin monohydrate [From Keflex] Allergy (Mild, Verified 01/17/18 15:09) Itching doxycycline Adverse Reaction (Verified 01/17/18 15:09) Vomiting moxifloxacin HCl [From Avelox] Adverse Reaction (Verified 01/17/18 15:09) Vomiting Surgical History: Surgical History (Last Updated 10/01/17 @ 07:25 by Ivonne Sunshine) History of lung biopsy (Resolved) Z98.890 History of tubal ligation (Resolved) Z98.51 - Physical Exam Vital Signs Temp Pulse Resp BP Pulse Ox 97.5 F L 88 35 H 168/111 H 98 01/17/18 15:04 01/17/18 18:19 01/17/18 18:19 01/17/18 18:19 01/17/18 18:19 Oxygen Flow Rate (L/min) 3 Oxygen Delivery Method Nasal Cannula Assessment/Plan Hospitalist note: I am seeing this patient in conjunction with Gaetano Prince. I independently seen and examined the patient. History and physical, laboratory data and imaging studies reviewed. I agree with the above admission and treatment plan. Patient was admitted because of lethargy and confusion. At this time, she is sleepy but easily arousable and she was able to answer few questions. According to her daughter who was at the bedside, normally she is awake and alert. The patient denies any pain. Denied abdominal pain, nausea vomiting. Denied fever chills. She has history of chronic respiratory failure secondary to sarcoidosis and bronchiectasis and she has been on home oxygen at 4 L. She has history of COPD and she has been on bronchodilators as well as oxygen. She has history of hypertension and she has been on clonidine and losartan. In the emergency department, her ABG was done and she was found to have pH of 7.30 on PCO2 53. She was started on BiPAP for couple of hours and repeat EKG revealed a PCO2 of 53. The patient herself denies any worsening shortness of breath, cough or sputum production. She thinks that her breathing is at her baseline. Her urine drug screen is negative. Urine analysis revealed cloudy urine, negative for nitrite, positive for leukocyte esterase, there was more than 100 WBCs and 4+ bacteria and also was positive for trichomonas. Chest x-ray revealed bronchiectatic changes in the whole right lung as well as left base and actually x-ray looks much better compared to x-ray from October,. She is being admitted for acute cystitis with sepsis, metabolic encephalopathy and chronic hypercapnic respiratory failure. - Physical Exam General: Lethargic, sleepy, arousable, Cooperative, No apparent distress. HEENT: Atraumatic, PERRLA, EOMI. Neck: Supple, No JVD, Negative Carotid Bruits, Trachea Midline, Thyroid Normal. Lungs: Decreased breath sounds bilateral, bilateral rhonchi, fine crackles more than right side. Cardiovascular: Regular rate, Regular Rhythm, tachycardia, normal S1, Normal S2 , PMI Normal. Abdomen: Bowel Sounds Present, Soft, Non Tender, Non-Distended, No Hepato- splenomegaly. Extremities: No clubbing, No cyanosis, No edema Skin: No rashes, No breakdown Neurological: Neuro grossly intact Assessment and plan: #1 sepsis/acute cystitis: Plan for urine culture, blood culture, start IV Rocephin, continue Hampton catheter. #2 encephalopathy: Likely metabolic secondary to infection and sepsis. Also, PCO2 is slightly elevated and pH of 7.30 but she seemed to be a chronic CO2 retainer because of bronchiectasis and sarcoidosis. She denied any worsening shortness of breath. Plan: We will stop BiPAP at this time, keep patient on 4 L , close monitoring of mental status and if her mentation worsened, we need to repeat ABG. #3 Trichomoniasis: Oral Flagyl 500 mg p.o. twice daily for 7 days. #4 chronic respiratory failure: On home oxygen at 4 L. It is secondary to sarcoidosis and bronchiectasis as well as COPD. #5 other chronic medical problems, stable, continue current medications as above. This note was generated with [employer] dictation software. It may contain incorrect words, spelling, and punctuation that were not noted in checking the note before signing. Code Visit Inpatient E&M: 51403 Init Hosp L3
[2018-01-17] MEDS: Ipratropium/Albuterol Sulfate 3 ML AMPUL.NEB INHALATION (19:59)
[2018-01-17] MEDS: hydrALAZINE 20 MG/ML Vial 10 MG IV (20:20)
[2018-01-17] MEDS: cloNIDine HCl 0.2 MG Tablet PO (22:20)
[2018-01-17] MEDS: metroNIDAZOLE 500 MG Tablet PO (22:20)
[2018-01-17] MEDS: 0.9% Normal Saline 1,000 ML 75 ML IV (22:20)
[2018-01-17] MEDS: tiZANidine HCl 2 MG Tablet 4 MG PO (22:21)
[2018-01-17] MEDS: hydrOXYzine PAM 25 MG Capsule 50 MG PO (22:21)
[2018-01-17] MEDS: Triamcinolone 0.5% Cream 1 APPLIC TP (22:22)
[2018-01-18] VITALS (13 sets, daily range): BP systolic 124–158; BP diastolic 81–93; PULSE 88–101; RESP 14–24; TEMP 36.4–36.8; O2SAT 99–100
[2018-01-18] MEDS: Ipratropium/Albuterol Sulfate 3 ML AMPUL.NEB INHALATION ×3 (00:50→13:11)
[2018-01-18 06:32] LABS: Absolute Lymphocyte Count 0.87 X10^3/ul (0.83-4.51); Absolute Neutrophil Count 15.1 X10^3/uL (2.0-7.7); Basophil# 0.02 X10^3/uL; Basophil% 0.1 % (0-1); Hematocrit 33.4 % (37-47); Hemoglobin 11.9 g/dl (12.0-15.0); Lymphocyte # 0.87 X10^3/ul (4.0); Lymphocyte % 5.2 % (19-41); Mean Corp Hgb Conc 35.6 g/gl (32-36); Mean Corpuscular Hgb 28.7 pg (27.0-32.0); Mean Corpuscular Volume 80.7 fL (81-99); Monocyte# 0.61 X10^3/uL; Monocyte% 3.7 % (0-10); Neutrophil # 15.08 X10^3/uL (2.7-7.7); Neutrophil % 90.7 % (47-70); Platelet Count 317 K/mm3 (150-450); RBC Distribution Width CV 14.6 % (11.6-14.6); RBC Distribution Width SD 41.9 fl (35.1-43.9); Red Blood Count 4.14 M/mm3 (4.2-5.4); White Blood Count 16.6 K/mm3 (4.4-11.0)
[2018-01-18 06:34] LABS: POSITIVE COUNT NO; POSITIVE DIFFERENTIAL NO; POSITIVE MORPHOLOGY NO
[2018-01-18] MEDS: hydrOXYzine PAM 25 MG Capsule 50 MG PO ×3 (06:47→22:02)
[2018-01-18] MEDS: cloNIDine HCl 0.2 MG Tablet PO ×3 (06:47→22:01)
[2018-01-18] MEDS: Enoxaparin 40 MG/0.4 ML Syringe SC (06:47)
[2018-01-18 07:00] LABS: Anion Gap 8 (5-15); BUN 30 mg/dL (7-18); BUN/Creat Ratio 42.2 RATIO (10-20); Calcium,Total 8.4 mg/dL (8.5-10.1); Chloride 107 mmol/L (98-107); Creatinine, Serum 0.71 mg/dL (0.55-1.02); EST Glomerular Filtration Rate 92 mL/min (>60); Est Glom Filt Rate - Afr Amer 111 mL/min (>60); Estimated Creatinine Clearance 76.67 ml/min; Glucose 126 mg/dL (74-106); Potassium 4.4 mmol/L (3.5-5.1); Sodium Level 139 mmol/L (136-145)
[2018-01-18] MEDS: Ceftriaxone 1 GM/50 ML BAG IV (09:13)
[2018-01-18] MEDS: Loratadine 10 MG Tablet 5 MG PO (09:13)
[2018-01-18] MEDS: DULoxetine Hcl 20 MG Capsule PO (09:14)
[2018-01-18] MEDS: metroNIDAZOLE 500 MG Tablet PO ×2 (09:14→22:10)
[2018-01-18] MEDS: Losartan Potassium 50 MG Tablet PO ×2 (09:14→22:02)
[2018-01-18] MEDS: Triamcinolone 0.5% Cream 1 APPLIC TP ×2 (09:15→22:05)
[2018-01-18] MEDS: tiZANidine HCl 2 MG Tablet 4 MG PO ×2 (09:15→22:02)
[2018-01-18] MEDS: 0.9% NaCl Peripheral Flush Adult/Peds IV (09:17)
[2018-01-18 10:59] LABS: Hemoglobin A1c 4.8 % (4.2-6.3)
--- NOTE | 2018-01-18 11:25 | CASEMGMT ---
RN KSENIA Face to Face with patient for initial transition planning/care coordination assessment. RN CM introduced self and role at [facility]. Patient lying in bed, alert and oriented, at bedside. Patient willing to participate in assessment and is able to answer all questions appropriately. Care providers, pharmacy, and demographics verified. See link attached. Patient wishes to discharge home, denies need for home health at this time. Patient states she has no further needs or concerns at this time. CM to follow for discharge planning needs that may arise. Disposition Plan: Patient to discharge home with family support and follow-up plans in place.
[2018-01-18] MEDS: Acetaminophen 325 MG Tablet 650 MG PO ×2 (14:16→20:18)
--- NOTE | 2018-01-18 15:19 | PCM.PROGNOTE ---
<Gaetano Prince - Last Filed: 01/18/18 15:19> Patient Problems: Active and Suspected Problems (Last Updated 10/01/17 @ 07:25 by Ivonne Sunshine) Cystitis (Acute) Acute metabolic encephalopathy (Acute) Sepsis (Acute) Subjective: Pt sitting upright in chair, much more alert today, stating overall she feels improved. Her lei was removed this AM. No dysuria at this time. No abdominal pain, no fever or chills. No worsening of chronic cough or SOB. She is stable on her chronic O2 level of 4lpm. - Physical Exam General: Alert, Oriented x3, Cooperative HEENT: Atraumatic, PERRLA, EOMI, Normocephalic Neck: Supple, No JVD, Negative Carotid Bruits Lungs: Rales - BL bases Cardiovascular: Regular rate, No murmurs Abdomen: Bowel Sounds Present, Soft, Non Tender Extremities: No edema, Capillary Refill Less than 3 Seconds Skin: No rashes, No breakdown Musculoskeletal: No Tenderness to Palpation of Joints or Extremities Neurological: Cranial nerves II-XII grossly intact Psych/Mental Status: Normal Affect, Appropriate, Alert and oriented to time, place, person, mood and affect Vital Signs Temp Pulse Resp BP Pulse Ox 97.9 F 96 16 149/93 H 100 01/18/18 13:38 01/18/18 13:38 01/18/18 13:38 01/18/18 13:38 01/18/18 13:38 Oxygen Flow Rate (L/min) 4 Oxygen Delivery Method Nasal Cannula Weight: 70.715 kg Body Mass Index (BMI) 27.6 Intake and Output for Last 24 Hours 01/16/18 01/17/18 01/18/18 23:59 23:59 23:59 Intake Total 499 / 499 654 / 654 Output Total 450 / 450 125 / 125 Balance 49 / 49 529 / 529 Laboratory Tests Past 24 Hrs 01/18/18 01/18/18 01/18/18 05:55 05:55 05:55 WBC 16.6 H RBC 4.14 L Hgb 11.9 L Hct 33.4 L MCV 80.7 L MCH 28.7 MCHC 35.6 RDW 14.6 RDW Differential 41.9 Plt Count 317 MPV 9.0 Immature Gran % (Auto) 0.300 Neut % (Auto) 90.7 H Lymph % (Auto) 5.2 L [place] % (Auto) 3.7 Eos % (Auto) 0.0 Baso % (Auto) 0.1 Absolute Neuts (auto) 15.1 H Absolute Lymphs (auto) 0.87 Total Counted Not Reportable Sodium 139 Potassium 4.4 Chloride 107 Carbon Dioxide 24.0 Anion Gap 8 BUN 30 H Creatinine 0.71 Estim Creat Clear Calc 76.67 Est GFR (MDRD) Af Amer 111 Est GFR (MDRD) Non-Af 92 BUN/Creatinine Ratio 42.2 H Glucose 126 H Hemoglobin A1c 4.8 Calcium 8.4 L Medical Necessity - Tobacco Use Smoking Status: Former smoker Tobacco Use: Cigarettes Assessment/Plan All Active Problems (Last Updated 10/01/17 @ 07:25 by Ivonne Sunshine) Cystitis (Acute) Acute metabolic encephalopathy (Acute) Sepsis (Acute) History of lung biopsy (Resolved) History of tubal ligation (Resolved) Costochondritis, acute (Acute) Acute upper respiratory infection (Acute) Bronchiectasis with acute exacerbation (Acute) Acute suppurative otitis media (Acute) Acute exacerbation of chronic obstructive pulmonary disease (Acute) Hypokalemia (Acute) Left otitis media (Acute) Hypokalemia (Acute) Leukocytosis (Acute) Chest pain (Acute) Pleuritic chest discomfort (Acute) Overdose (Acute) 1. Acute sepsis 2/2 Acute cystitis - criteria met with leukocytosis, + UA, tachypnea, pulse >90. presents with increased lethargy, no dysuria Lei placed in ER. Lactate negative. Culture pending. + Trichomonas. Continue rocephin and trich course of flagyl x 7 days. Multiple abx allergies. Follow final urine and blood c/s. -leukocytosis improving -afebrile -cx with alpha hemolytic organism + e coli. follow final c/s. 2. Acute metabolic encephalopathy - 2/2 uti/sepsis - improved. 3. Chronic hypoxic respiratory failure - 2/2 bronchiectasis, COPD, and sarcoidosis. at baseline. 4. Dehydration - improved, no further fluids. 5. HTN - continues to be high with prn hydralazine. start norvasc. DVT ppx: lovenox DC planning: PTOT. This patient was seen by Gaetano Prince PA-C under the supervision of Doctor Cresencio <John Dupont - Last Filed: 01/18/18 16:01> Subjective: Complains of diplopia. Has never had that before. Worse when looking further out rather than close up. - Physical Exam General: Alert, Cooperative HEENT: Atraumatic, PERRLA, TM's Clear, - - limited left lateral gaze of left eye. Neck: No Nodes, Thyroid Normal Size and Texture Lungs: Clear to auscultation, Diminished Cardiovascular: Regular rate, Regular Rhythm, Normal S1, Normal S2 Abdomen: Bowel Sounds Present, Soft, Non Tender, Non-Distended Extremities: No edema, No Calf Tenderness Skin: No rashes, No breakdown Neurological: Cranial nerves II-XII grossly intact, Deep Tendon Reflexes 2+/4 and Symmetrical, Neuro grossly intact, Motor Exam 5/5 strength throughout Psych/Mental Status: Appropriate, Flat Affect Vital Signs Temp Pulse Resp BP Pulse Ox 36.6 C 96 16 149/93 H 100 01/18/18 13:38 01/18/18 13:38 01/18/18 13:38 01/18/18 13:38 01/18/18 13:38 Oxygen Flow Rate (L/min) 4 Oxygen Delivery Method Nasal Cannula Weight: 70.715 kg Body Mass Index (BMI) 27.6 Intake and Output for Last 24 Hours 01/16/18 01/17/18 01/18/18 23:59 23:59 23:59 Intake Total 499 / 499 654 / 654 Output Total 450 / 450 125 / 125 Balance 49 / 49 529 / 529 Laboratory Tests Past 24 Hrs 01/18/18 01/18/18 01/18/18 05:55 05:55 05:55 WBC 16.6 H RBC 4.14 L Hgb 11.9 L Hct 33.4 L MCV 80.7 L MCH 28.7 MCHC 35.6 RDW 14.6 RDW Differential 41.9 Plt Count 317 MPV 9.0 Immature Gran % (Auto) 0.300 Neut % (Auto) 90.7 H Lymph % (Auto) 5.2 L [place] % (Auto) 3.7 Eos % (Auto) 0.0 Baso % (Auto) 0.1 Absolute Neuts (auto) 15.1 H Absolute Lymphs (auto) 0.87 Total Counted Not Reportable Sodium 139 Potassium 4.4 Chloride 107 Carbon Dioxide 24.0 Anion Gap 8 BUN 30 H Creatinine 0.71 Estim Creat Clear Calc 76.67 Est GFR (MDRD) Af Amer 111 Est GFR (MDRD) Non-Af 92 BUN/Creatinine Ratio 42.2 H Glucose 126 H Hemoglobin A1c 4.8 Calcium 8.4 L Assessment/Plan Patient seen and examined independently. Agree the above note by the physician medical claims assistant. 1. Sepsis Present on admission Secondary to UTI 2. UTI Positive E. coli and alpha hemolytic organism Continue with Rocephin 3. Diplopia New diagnosis that patient has brought to medical attention today Patient does have some impairment with left lateral gaze of her left eye Will check a stroke workup which will include an MRI of the brain, MRA of the head neck, echocardiogram, physical and occupational therapy, bedside swallow eval, neurology consultation. Patient on aspirin Patient's NIH is only 1 Not a candidate for TPA 4. Chronic respiratory failure Stable at this time. 5. Metabolic encephalopathy Resolved 6. DVT prophylaxis with Lovenox Code Visit Inpatient E&M: 81326 Subs Hosp L3
--- NOTE | 2018-01-18 15:27 | PN_ITS ---
<Gaetano Prince - Last Filed: 01/18/18 15:19> Patient Problems: Active and Suspected Problems (Last Updated 10/01/17 @ 07:25 by Ivonne Sunshine) Cystitis (Acute) Acute metabolic encephalopathy (Acute) Sepsis (Acute) Subjective: Pt sitting upright in chair, much more alert today, stating overall she feels improved. Her lei was removed this AM. No dysuria at this time. No abdominal pain, no fever or chills. No worsening of chronic cough or SOB. She is stable on her chronic O2 level of 4lpm. - Physical Exam General: Alert, Oriented x3, Cooperative HEENT: Atraumatic, PERRLA, EOMI, Normocephalic Neck: Supple, No JVD, Negative Carotid Bruits Lungs: Rales - BL bases Cardiovascular: Regular rate, No murmurs Abdomen: Bowel Sounds Present, Soft, Non Tender Extremities: No edema, Capillary Refill Less than 3 Seconds Skin: No rashes, No breakdown Musculoskeletal: No Tenderness to Palpation of Joints or Extremities Neurological: Cranial nerves II-XII grossly intact Psych/Mental Status: Normal Affect, Appropriate, Alert and oriented to time, place, person, mood and affect Vital Signs Temp Pulse Resp BP Pulse Ox 97.9 F 96 16 149/93 H 100 01/18/18 13:38 01/18/18 13:38 01/18/18 13:38 01/18/18 13:38 01/18/18 13:38 Oxygen Flow Rate (L/min) 4 Oxygen Delivery Method Nasal Cannula Weight: 70.715 kg Body Mass Index (BMI) 27.6 Intake and Output for Last 24 Hours 01/16/18 01/17/18 01/18/18 23:59 23:59 23:59 Intake Total 499 / 499 654 / 654 Output Total 450 / 450 125 / 125 Balance 49 / 49 529 / 529 Laboratory Tests Past 24 Hrs 01/18/18 01/18/18 01/18/18 05:55 05:55 05:55 WBC 16.6 H RBC 4.14 L Hgb 11.9 L Hct 33.4 L MCV 80.7 L MCH 28.7 MCHC 35.6 RDW 14.6 RDW Differential 41.9 Plt Count 317 MPV 9.0 Immature Gran % (Auto) 0.300 Neut % (Auto) 90.7 H Lymph % (Auto) 5.2 L [place] % (Auto) 3.7 Eos % (Auto) 0.0 Baso % (Auto) 0.1 Absolute Neuts (auto) 15.1 H Absolute Lymphs (auto) 0.87 Total Counted Not Reportable Sodium 139 Potassium 4.4 Chloride 107 Carbon Dioxide 24.0 Anion Gap 8 BUN 30 H Creatinine 0.71 Estim Creat Clear Calc 76.67 Est GFR (MDRD) Af Amer 111 Est GFR (MDRD) Non-Af 92 BUN/Creatinine Ratio 42.2 H Glucose 126 H Hemoglobin A1c 4.8 Calcium 8.4 L Medical Necessity - Tobacco Use Smoking Status: Former smoker Tobacco Use: Cigarettes Assessment/Plan All Active Problems (Last Updated 10/01/17 @ 07:25 by Ivonne Sunshine) Cystitis (Acute) Acute metabolic encephalopathy (Acute) Sepsis (Acute) History of lung biopsy (Resolved) History of tubal ligation (Resolved) Costochondritis, acute (Acute) Acute upper respiratory infection (Acute) Bronchiectasis with acute exacerbation (Acute) Acute suppurative otitis media (Acute) Acute exacerbation of chronic obstructive pulmonary disease (Acute) Hypokalemia (Acute) Left otitis media (Acute) Hypokalemia (Acute) Leukocytosis (Acute) Chest pain (Acute) Pleuritic chest discomfort (Acute) Overdose (Acute) 1. Acute sepsis 2/2 Acute cystitis - criteria met with leukocytosis, + UA, tachypnea, pulse >90. presents with increased lethargy, no dysuria Lei placed in ER. Lactate negative. Culture pending. + Trichomonas. Continue rocephin and trich course of flagyl x 7 days. Multiple abx allergies. Follow final urine and blood c/s. -leukocytosis improving -afebrile -cx with alpha hemolytic organism + e coli. follow final c/s. 2. Acute metabolic encephalopathy - 2/2 uti/sepsis - improved. 3. Chronic hypoxic respiratory failure - 2/2 bronchiectasis, COPD, and sarcoidosis. at baseline. 4. Dehydration - improved, no further fluids. 5. HTN - continues to be high with prn hydralazine. start norvasc. DVT ppx: lovenox DC planning: PTOT. This patient was seen by Gaetano Prince PA-C under the supervision of Doctor Cresencio <John Dupont - Last Filed: 01/18/18 16:01> Subjective: Complains of diplopia. Has never had that before. Worse when looking further out rather than close up. - Physical Exam General: Alert, Cooperative HEENT: Atraumatic, PERRLA, TM's Clear, - - limited left lateral gaze of left eye. Neck: No Nodes, Thyroid Normal Size and Texture Lungs: Clear to auscultation, Diminished Cardiovascular: Regular rate, Regular Rhythm, Normal S1, Normal S2 Abdomen: Bowel Sounds Present, Soft, Non Tender, Non-Distended Extremities: No edema, No Calf Tenderness Skin: No rashes, No breakdown Neurological: Cranial nerves II-XII grossly intact, Deep Tendon Reflexes 2+/4 and Symmetrical, Neuro grossly intact, Motor Exam 5/5 strength throughout Psych/Mental Status: Appropriate, Flat Affect Vital Signs Temp Pulse Resp BP Pulse Ox 36.6 C 96 16 149/93 H 100 01/18/18 13:38 01/18/18 13:38 01/18/18 13:38 01/18/18 13:38 01/18/18 13:38 Oxygen Flow Rate (L/min) 4 Oxygen Delivery Method Nasal Cannula Weight: 70.715 kg Body Mass Index (BMI) 27.6 Intake and Output for Last 24 Hours 01/16/18 01/17/18 01/18/18 23:59 23:59 23:59 Intake Total 499 / 499 654 / 654 Output Total 450 / 450 125 / 125 Balance 49 / 49 529 / 529 Laboratory Tests Past 24 Hrs 01/18/18 01/18/18 01/18/18 05:55 05:55 05:55 WBC 16.6 H RBC 4.14 L Hgb 11.9 L Hct 33.4 L MCV 80.7 L MCH 28.7 MCHC 35.6 RDW 14.6 RDW Differential 41.9 Plt Count 317 MPV 9.0 Immature Gran % (Auto) 0.300 Neut % (Auto) 90.7 H Lymph % (Auto) 5.2 L [place] % (Auto) 3.7 Eos % (Auto) 0.0 Baso % (Auto) 0.1 Absolute Neuts (auto) 15.1 H Absolute Lymphs (auto) 0.87 Total Counted Not Reportable Sodium 139 Potassium 4.4 Chloride 107 Carbon Dioxide 24.0 Anion Gap 8 BUN 30 H Creatinine 0.71 Estim Creat Clear Calc 76.67 Est GFR (MDRD) Af Amer 111 Est GFR (MDRD) Non-Af 92 BUN/Creatinine Ratio 42.2 H Glucose 126 H Hemoglobin A1c 4.8 Calcium 8.4 L Assessment/Plan Patient seen and examined independently. Agree the above note by the physician market research assistant. 1. Sepsis * Present on admission * Secondary to UTI 2. UTI * Positive E. coli and alpha hemolytic organism * Continue with Rocephin 3. Diplopia * New diagnosis that patient has brought to medical attention today * Patient does have some impairment with left lateral gaze of her left eye * Will check a stroke workup which will include an MRI of the brain, MRA of the head neck, echocardiogram, physical and occupational therapy, bedside swallow eval, neurology consultation. * Patient on aspirin * Patient's NIH is only 1 * Not a candidate for TPA 4. Chronic respiratory failure * Stable at this time. 5. Metabolic encephalopathy * Resolved 6. DVT prophylaxis with Lovenox Code Visit Inpatient E&M: 63183 Subs Hosp L3
--- NOTE | 2018-01-18 15:41 | CHAPLAIN ---
Type of Pastoral Visit _x__ Initial Visit ___ Follow-up Visit ___ On-call Visit ___ General Patient Visit ___ Spiritual Assessment ___ Family Conference ___ Bereavement ___ Rapid Response ___ Code Blue ___ Other (describe below) Pastoral Care Referral From _x__ Patient ___ Family ___ Nurse ___ Physician ___ Mold Capper ___ Senior Quality Assurance Analyst ___ Other (describe below) Sacrament/Intervention ___ Active listening ___ Anointing ___ Zoroastrianism ___ Bereavement ___ Communion ___ Diya exploration ___ ___ Life review _x__ Prayer ___ Reconciliation ___ Sacrament of Sick _x__ Supportive presence ___ Wedding ___ Other (describe below) Pastoral Comments
[2018-01-18] MEDS: oxyCODONE 5 MG Tablet PO ×2 (16:00→22:01)
--- NOTE | 2018-01-18 16:01 | MRI_ITS ---
MRA Neck WO/W Contrast INDICATION: Diplopia x 4 days. History of sarcoidosis COMPARISON: None TECHNIQUE: MR angiogram of the arterial structures of the neck without and with IV contrast and 2-D and 3-D [id number] technique and 3-D reformatted images. FINDINGS: Common carotid arteries are normal in origin and symmetric in caliber. The bifurcations are unremarkable and there is normal and symmetric appearance of the internal carotid arteries to the level of the skull base. No luminal irregularities are seen. Posterior circulation demonstrates a dominant right vertebral artery and a small caliber left vertebral artery, normal variation. MRI/MRA Neck WITH and W/O Contrast IMPRESSION: Negative MR angiogram of the neck. Hypoplastic left vertebral artery, normal variation. at 2311 Reported and signed by: Юлия Bradley MD Electronically Signed: Юлия Bradley MD at 23:10 EDT Tel , Service support ,
--- NOTE | 2018-01-18 16:01 | MRI_ITS ---
MRA Head W/O Contrast INDICATION: Diplopia x 4 days. History of sarcoidosis COMPARISON: CTA January 23, 2017 (no high-resolution coronal reformatted images available) TECHNIQUE: MR angiogram of the [place] and 3-D gmun-[id number] technique with 3-D reformatted images. FINDINGS: There is symmetric flow related signal in the intracranial portions of the internal carotid arteries with symmetric supplied to the anterior and middle cerebral arteries. At the level of the anterior communicating artery/right A1, there is evidence of a 3 mm small aneurysm. When compared to the available axial images from the CTA, this appears to represent tortuosity of the left proximal A2 segment rather than a true aneurysm. Posterior circulation demonstrates no significant flow related signal in the distal left vertebral artery, suggestive of hypoplastic vessel. There is normal flow related signal in the basilar artery and the basilar artery gives rise to both posterior cerebral arteries. 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 If there is high clinical concern for aneurysm, consider conventional angiography. at 2009 Reported and signed by: Юлия Bradley MD Electronically Signed: Юлия Bradley MD at 20:07 EDT Tel , Service support ,
--- NOTE | 2018-01-18 16:02 | ECHOD_ITS ---
Reason For Study: TIA/CVA Procedure This was a 2D Doppler, Color Flow transthoracic echocardiogram. Exam performed portable in patient room. Left Ventricle Normal size and thickness. The estimated ejection fraction is 65 %. Stage 1 diastolic dysfunction. No regional wall motion abnormalities noted. Right Ventricle Normal size and thickness. Normal systolic function. Atria Normal left atrium. Normal right atrium. Normal atrial septum. Bubble contrast study negative for right to left interatrial shunt. Mitral Valve The mitral valve is structurally normal. No prolapse or stenosis seen. Tricuspid Valve Normal tricuspid valve. Unable to estimate RV systolic pressure due to inadequate jet, pulmonary artery pressure probably normal. Aortic Valve Normal aortic valve. Trisinus/trileaflet aortic valve. Pulmonic Valve Normal pulmonic valve. Great Vessels Normal aortic root. Normal arch. Normal inferior vena cava. Inferior vena cava collapse with sniff. Pericardium/Pleural No pericardial effusion. Medication Performed a rapid injection of agitated mix of 9 cc saline and 1cc air to assess for atrial septal defect. MMode/2D Measurements & Calculations LVIDd: 3.1 cm IVSd: 1.0 cm Ao root diam: 2.8 cm LVIDs: 2.1 cm LVPWd: 1.2 cm LA dimension: 2.5 cm RVDd: 2.8 cm FS: 33.2 % LAV(MOD-bp): 26.1 ml LA A4 area: 11.3 cm2 RA A4 area: 7.3 cm2 LAV(MOD-bp) Indexed: 15.1 ml/m2 LAV(MOD-sp2): 29.1 ml LAV(MOD-sp4): 23.7 ml Time Measurements MV dec time: 0.20 sec Doppler Measurements & Calculations MV E max noé: 48.3 cm/sec Lat Peak E' Noé: 9.7 cm/sec Med Peak E' Noé: 6.5 cm/sec MV A max noé: 67.2 cm/sec E/E' lat: 5.0 E/E' med: 7.5 MV E/A: 0.72 MV V2 max: 80.0 cm/sec MV P1/2t max noé: 58.1 cm/sec Ao V2 max: 98.9 cm/sec MV max P.6 mmHg MV P1/2t: 53.6 msec Ao max P.9 mmHg MV V2 mean: 49.4 cm/sec MV dec slope: 317.9 cm/sec2 Ao V2 mean: 61.8 cm/sec MV mean P.1 mmHg MVA(P1/2t): 4.1 cm2 Ao mean P.8 mmHg MV V2 VTI: 13.7 cm Ao V2 VTI: 14.6 cm LV V1 max: 94.5 cm/sec PA V2 max: 86.3 cm/sec LV V1 max P.6 mmHg LV V1 mean P.6 mmHg LV V1 mean: 57.6 cm/sec LV V1 VTI: 14.0 cm Interpretation Summary The estimated ejection fraction is 65 %. Stage 1 diastolic dysfunction. Bubble contrast study negative for right to left interatrial shunt. Unable to estimate RV systolic pressure due to inadequate jet, pulmonary artery pressure probably normal. Compared to echo report dated 05/17/2009, no appreciable changes noted. Ordering Physician: John Dupont Referring Physician: John Sears MD Performed By: Denis Pavon RCS
--- NOTE | 2018-01-18 16:04 | MRI_ITS ---
MR Brain WO/W Contrast INDICATION: Diplopia x 4 days. History of sarcoidosis COMPARISON: None TECHNIQUE: Multiplanar multisequence MRI examination of the brain without and with IV contrast. 6 mL of gadolinium Vistaril given intravenously. FINDINGS: There is no evidence of restricted diffusion to suggest acute ischemia/infarction. Ventricular system is normal in size and symmetric. Cortical sulci, sylvian fissures, and basal cisterns are well seen. Dangelo-white matter junction is normal. Partially empty sella is incidentally noted. Midline structures and craniocervical junction are otherwise within normal limits. The cerebellopontine angles are normal and symmetric. Supra-and infratentorial brain parenchyma demonstrates normal signal. There is no evidence of parenchymal microhemorrhage, mass effect or midline shift, or abnormal extra-axial collection. After contrast administration, there is no abnormal parenchymal or extra-axial enhancement identified. Flow-voids of the [place] vascularity are well seen. The paranasal sinuses heart clear. Trace fluid is seen in the right mastoid air cells. MRI/Brain W/WO Contrast IMPRESSION: No evidence of mass, edema, or abnormal enhancement. Partially empty sella, incidental finding. Trace fluid in the right mastoid air cells. at 2013 Reported and signed by: Юлия Bradley MD Electronically Signed: Юлия Bradley MD at 20:11 EDT Tel , Service support ,
[2018-01-18] MEDS: Aspirin 325 MG Tablet PO (17:00)
[2018-01-19] VITALS (11 sets, daily range): BP systolic 113–122; BP diastolic 71–83; PULSE 95–107; RESP 15–20; TEMP 36.6–36.8; O2SAT 98–100; BMI 27.6
[2018-01-19] MEDS: oxyCODONE 5 MG Tablet PO ×2 (05:00→11:34)
[2018-01-19] MEDS: cloNIDine HCl 0.2 MG Tablet PO ×2 (05:00→15:23)
[2018-01-19] MEDS: hydrOXYzine PAM 25 MG Capsule 50 MG PO ×2 (05:01→15:23)
[2018-01-19] MEDS: Enoxaparin 40 MG/0.4 ML Syringe SC (05:01)
[2018-01-19] MEDS: Ipratropium/Albuterol Sulfate 3 ML AMPUL.NEB INHALATION ×2 (07:08→13:51)
[2018-01-19 07:51] LABS: Cholesterol 197 mg/dL (200); High Density Lipoprotein 49 mg/dL; Triglycerides 61 mg/dL; Very Low Density Lipoprotein 12 mg/dL (5-40)
[2018-01-19 08:03] LABS: Absolute Lymphocyte Count 1.39 X10^3/ul (0.83-4.51); Absolute Neutrophil Count 17.2 X10^3/uL (2.0-7.7); Basophil# 0.09 X10^3/uL; Basophil% 0.4 % (0-1); Eosinophil# 0.43 X10^3/uL; Hematocrit 31.3 % (37-47); Hemoglobin 10.4 g/dl (12.0-15.0); Lymphocyte # 1.39 X10^3/ul (4.0); Lymphocyte % 6.3 % (19-41); Mean Corp Hgb Conc 33.2 g/gl (32-36); Mean Corpuscular Hgb 27.5 pg (27.0-32.0); Mean Corpuscular Volume 82.8 fL (81-99); Monocyte# 2.94 X10^3/uL; Monocyte% 13.3 % (0-10); Neutrophil # 17.15 X10^3/uL (2.7-7.7); Neutrophil % 77.8 % (47-70); Platelet Count 289 K/mm3 (150-450); RBC Distribution Width CV 15.6 % (11.6-14.6); RBC Distribution Width SD 46.8 fl (35.1-43.9); Red Blood Count 3.78 M/mm3 (4.2-5.4); White Blood Count 22.1 K/mm3 (4.4-11.0)
[2018-01-19 08:07] LABS: Differential Indicated SCAN CRITERIA MET; POSITIVE COUNT NO; POSITIVE DIFFERENTIAL YES; POSITIVE MORPHOLOGY NO
[2018-01-19] MEDS: Loratadine 10 MG Tablet 5 MG PO (09:15)
[2018-01-19] MEDS: Aspirin 81 MG TAB.CHEW PO (09:15)
[2018-01-19] MEDS: Losartan Potassium 50 MG Tablet PO (09:16)
[2018-01-19] MEDS: DULoxetine Hcl 20 MG Capsule PO (09:16)
[2018-01-19] MEDS: amLODIPine 5 MG Tablet PO (09:17)
[2018-01-19] MEDS: tiZANidine HCl 2 MG Tablet 4 MG PO (09:18)
[2018-01-19] MEDS: Acetaminophen 325 MG Tablet 650 MG PO ×2 (09:19→15:23)
[2018-01-19] MEDS: metroNIDAZOLE 500 MG Tablet PO (09:23)
[2018-01-19] MEDS: Ceftriaxone 1 GM/50 ML BAG IV (10:24)
[2018-01-19] MEDS: 0.9% NaCl Peripheral Flush Adult/Peds IV (10:25)
--- NOTE | 2018-01-19 12:21 | CASEMGMT ---
Therapy recommending further skilled therapy for pt at this time. This RN CM to room to speak with pt and she declines HHC/Outpt therapy at this time. Pt states that and daughter help when needed and states no need for any further help at this time. SStshania PIMENTEL CM
--- NOTE | 2018-01-19 13:00 | PCM.CONS.GEN ---
Reason for Consult Date of Consultation: 01/19/18 Reason for Consultation: confusion History of Present Illness: The patient is a 52 year old F who reports she was very sleepy for 4 days, was incontinent of urine and stool, and was found by neighbor who then called the squad. she apparently lives mostly alone. today she says she is improved but not baseline. per notes diagnosed with uti. per h&p:The patient is a 52 year old F with a hx of bronchiectasis, sarcoidosis, COPD, chronic respiratory failure on 4 lpm O2 at home, HTN, who presents to the ER with increased lethargy x 4 days. Her asked if she needed to come to the hospital this morning because she did not look well and seemed tired, however she stated she did not feel she needed to. Her neighbour found her later, more tired and more confused and called the squad. In the ER she seemed lethargic and an ABG was done showing CO2 retention and acidosis and she was placed on bipap. On exam she denied SOB. She states she has not been more SOB and has not had any worsening of her chronic cough. She is lethargic and closing her eyes, but she is responsive to questions. She states she does not want the bipap on. She wears O2 at all times at 4 lpm. She has no fever or chills, no nausea/vomiting/diarrhea/fever/chills/abdominal pain/dysuria. Past Medical History Past Medical History (Chronic Problems): Chronic Problems (Last Updated 10/01/17 @ 07:25 by Ivonne Sunshine) Chronic respiratory failure (Chronic) Chronic cough (Chronic) Bronchiectasis (Chronic) Asthma (Chronic) COPD (chronic obstructive pulmonary disease) (Chronic) Chronic pain (Chronic) Cough (Chronic) HTN (hypertension) (Chronic) Sarcoidosis (Chronic) Medical History: Medical History (Last Updated 10/01/17 @ 07:25 by Ivonne Sunshine) Costochondritis, acute (Acute) M94.0 Acute upper respiratory infection (Acute) J06.9 Chronic cough (Chronic) R05 Bronchiectasis with acute exacerbation (Acute) J47.1 Acute suppurative otitis media (Acute) H66.009 Bronchiectasis (Chronic) J47.9 Acute exacerbation of chronic obstructive pulmonary disease (Acute) J44.1 Asthma (Chronic) J45.909 COPD (chronic obstructive pulmonary disease) (Chronic) J44.9 Chronic pain (Chronic) G89.29 Hypokalemia (Acute) E87.6 Left otitis media (Acute) H66.92 Hypokalemia (Acute) E87.6 Leukocytosis (Acute) D72.829 Chest pain (Acute) R07.9 unknown etiology Pleuritic chest discomfort (Acute) Cough (Chronic) R05 Overdose (Acute) T50.901A HTN (hypertension) (Chronic) I10 Sarcoidosis (Chronic) D86.9 Allergies cephalexin monohydrate [From Keflex] Allergy (Mild, Verified 01/17/18 15:09) Itching doxycycline Adverse Reaction (Verified 01/17/18 15:09) Vomiting moxifloxacin HCl [From Avelox] Adverse Reaction (Verified 01/17/18 15:09) Vomiting Home Medications: Ambulatory Orders Medication Instructions Recorded Albuterol Inhaler [Ventolin Hfa] 1 - 2 puff INHALATION Q6H PRN PRN 09/05/16 Losartan Potassium [Cozaar] 50 mg PO BID 09/06/16 HydrOXYzine [Atarax] 50 mg PO Q8 10/12/16 Leflunomide 20 mg PO DAILY 07/31/17 Albuterol Aerosols [Ventolin 2.5 mg INHALATION Q4H PRN PRN 08/13/17 Aerosols] Sulfamethoxazole/Trimethoprim 1 tab PO MOWEFR 08/13/17 [Sulfamethoxazole-Tmp Ds Tablet] Oxymetazoline 0.05% [Afrin (BKC)] 15 spray NASAL BID #1 spray.btl 10/04/17 Cholecalciferol (Vitamin D3) 5,000 unit PO QWEEK 01/17/18 [Vitamin D3] Clonidine HCl 0.2 mg PO Q8 01/17/18 Duloxetine HCl 20 mg PO DAILY 01/17/18 Levocetirizine Dihydrochloride 5 mg PO DAILY 01/17/18 [Xyzal] Mometasone Furoate [Elocon] 15 gm TP BID 01/17/18 Naproxen 500 mg PO BID PRN PRN 01/17/18 Oxycodone [Oxyir] 5 mg PO Q6H PRN PRN 01/17/18 Paroxetine HCl [Paxil] 30 mg PO BID 01/17/18 Prednisone See Taper PO DAILY 01/17/18 Tizanidine HCl 4 mg PO BID 01/17/18 proMETHazine tablet [Phenergan] 12.5 mg PO Q6H PRN PRN 01/17/18 Surgical History: Surgical History (Last Updated 10/01/17 @ 07:25 by Ivonne Sunshine) History of lung biopsy (Resolved) Z98.890 History of tubal ligation (Resolved) Z98.51 Surgical History: - - BLTL. 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 Lives: Spouse/ Significant Other Smoking Status: Former smoker Tobacco Use: Cigarettes Alcohol: None Drugs: None - *Family History Maternal History Items: Diabetes, Hypertension, Stroke Paternal History Items: Stroke Review of Systems Constitutional: Denies: Chills, Fever, Weight Change HEENT: Denies: Head Aches, Sinus Congestion, Sinus Drainage Cardiovascular: Denies: Chest Pain, Palpitations Respiratory: Denies: Cough, Shortness of breath at rest, Sputum production Gastrointestinal: Denies: Abdominal Pain, Nausea, Vomiting Genitourinary: Denies: Dysuria Musculoskeletal: Denies: Joint Pain, Joint Tenderness Skin: Denies: Rash, Wounds Neurological: Denies: Numbness, Tingling, Focal weakness Psychiatric: Denies: Anxiety, Depression, Homicidal Ideations, Suicidal Ideations Hematologic/ Lymphatic: Denies: Easy Bruising, Easy Bleeding Patient Problems: Active and Suspected Problems (Last Updated 10/01/17 @ 07:25 by Ivonne Sunshine) Cystitis (Acute) Acute metabolic encephalopathy (Acute) Sepsis (Acute) - Physical Exam General: Alert, Oriented x3, Cooperative HEENT: Atraumatic, PERRLA, EOMI, Normocephalic Neck: Supple, No JVD, Negative Carotid Bruits Lungs: Clear to auscultation, Normal air movement Cardiovascular: Regular rate, No murmurs Abdomen: Bowel Sounds Present, Soft, Non Tender Extremities: No edema, Capillary Refill Less than 3 Seconds Skin: No rashes, No breakdown Musculoskeletal: No Tenderness to Palpation of Joints or Extremities Neurological: Cranial nerves II-XII grossly intact Psych/Mental Status: Normal Affect, Appropriate Vital Signs Temp Pulse Resp BP Pulse Ox 36.7 C 100 15 115/71 100 01/19/18 08:30 01/19/18 08:30 01/19/18 08:30 01/19/18 08:30 01/19/18 08:30 Oxygen Flow Rate (L/min) 4 Oxygen Delivery Method Nasal Cannula Weight: 70.715 kg Body Mass Index (BMI) 27.6 Intake and Output for Last 24 Hours 01/17/18 01/18/18 01/19/18 23:59 23:59 23:59 Intake Total 499 / 499 654 / 654 1367 / 1367 Output Total 450 / 450 525 / 525 600 / 600 Balance 49 / 49 129 / 129 767 / 767 Laboratory Tests Past 24 Hrs 01/19/18 01/19/18 06:40 06:40 WBC 22.1 H RBC 3.78 L Hgb 10.4 L Hct 31.3 L MCV 82.8 MCH 27.5 MCHC 33.2 RDW 15.6 H RDW Differential 46.8 H Plt Count 289 MPV 9.0 Immature Gran % (Auto) 0.200 Neut % (Auto) 77.8 H Lymph % (Auto) 6.3 L Cole % (Auto) 13.3 H Eos % (Auto) 2.0 Baso % (Auto) 0.4 Absolute Neuts (auto) 17.2 H Absolute Lymphs (auto) 1.39 Total Counted Pending Triglycerides 61 Cholesterol 197 LDL Cholesterol 136 H VLDL Cholesterol 12 HDL Cholesterol 49 mri reviewed, no acute mra reviewed, normal, no nick aneurysm cta reviewed 02/03: no nick aneurysm Assessment/Plan All Active Problems (Last Updated 10/01/17 @ 07:25 by Ivonne Sunshine) Cystitis (Acute) Acute metabolic encephalopathy (Acute) Sepsis (Acute) History of lung biopsy (Resolved) History of tubal ligation (Resolved) Costochondritis, acute (Acute) Acute upper respiratory infection (Acute) Bronchiectasis with acute exacerbation (Acute) Acute suppurative otitis media (Acute) Acute exacerbation of chronic obstructive pulmonary disease (Acute) Hypokalemia (Acute) Left otitis media (Acute) Hypokalemia (Acute) Leukocytosis (Acute) Chest pain (Acute) Pleuritic chest discomfort (Acute) Overdose (Acute) metabolic encephalopathy, resolved, 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
--- NOTE | 2018-01-19 13:04 | CON.PCM_ITS ---
Reason for Consult Date of Consultation: 01/19/18 Reason for Consultation: confusion History of Present Illness: The patient is a 52 year old F who reports she was very sleepy for 4 days, was incontinent of urine and stool, and was found by neighbor who then called the squad. she apparently lives mostly alone. today she says she is improved but not baseline. per notes diagnosed with uti. per h&p:The patient is a 52 year old F with a hx of bronchiectasis, sarcoidosis , COPD, chronic respiratory failure on 4 lpm O2 at home, HTN, who presents to the ER with increased lethargy x 4 days. Her asked if she needed to come to the hospital this morning because she did not look well and seemed tired , however she stated she did not feel she needed to. Her neighbour found her later, more tired and more confused and called the squad. In the ER she seemed lethargic and an ABG was done showing CO2 retention and acidosis and she was placed on bipap. On exam she denied SOB. She states she has not been more SOB and has not had any worsening of her chronic cough. She is lethargic and closing her eyes, but she is responsive to questions. She states she does not want the bipap on. She wears O2 at all times at 4 lpm. She has no fever or chills, no nausea/vomiting/diarrhea/fever/chills/abdominal pain/dysuria. Past Medical History Past Medical History (Chronic Problems): Chronic Problems (Last Updated 10/01/17 @ 07:25 by Ivonne Sunshine) Chronic respiratory failure (Chronic) Chronic cough (Chronic) Bronchiectasis (Chronic) Asthma (Chronic) COPD (chronic obstructive pulmonary disease) (Chronic) Chronic pain (Chronic) Cough (Chronic) HTN (hypertension) (Chronic) Sarcoidosis (Chronic) Medical History: Medical History (Last Updated 10/01/17 @ 07:25 by Ivonne Sunshine) Costochondritis, acute (Acute) M94.0 Acute upper respiratory infection (Acute) J06.9 Chronic cough (Chronic) R05 Bronchiectasis with acute exacerbation (Acute) J47.1 Acute suppurative otitis media (Acute) H66.009 Bronchiectasis (Chronic) J47.9 Acute exacerbation of chronic obstructive pulmonary disease (Acute) J44.1 Asthma (Chronic) J45.909 COPD (chronic obstructive pulmonary disease) (Chronic) J44.9 Chronic pain (Chronic) G89.29 Hypokalemia (Acute) E87.6 Left otitis media (Acute) H66.92 Hypokalemia (Acute) E87.6 Leukocytosis (Acute) D72.829 Chest pain (Acute) R07.9 unknown etiology Pleuritic chest discomfort (Acute) Cough (Chronic) R05 Overdose (Acute) T50.901A HTN (hypertension) (Chronic) I10 Sarcoidosis (Chronic) D86.9 Allergies cephalexin monohydrate [From Keflex] Allergy (Mild, Verified 01/17/18 15:09) Itching doxycycline Adverse Reaction (Verified 01/17/18 15:09) Vomiting moxifloxacin HCl [From Avelox] Adverse Reaction (Verified 01/17/18 15:09) Vomiting Home Medications: Ambulatory Orders Medication Instructions Recorded Albuterol Inhaler [Ventolin Hfa] 1 - 2 puff INHALATION Q6H PRN PRN 09/05/16 Losartan Potassium [Cozaar] 50 mg PO BID 09/06/16 HydrOXYzine [Atarax] 50 mg PO Q8 10/12/16 Leflunomide 20 mg PO DAILY 07/31/17 Albuterol Aerosols [Ventolin 2.5 mg INHALATION Q4H PRN PRN 08/13/17 Aerosols] Sulfamethoxazole/Trimethoprim 1 tab PO MOWEFR 08/13/17 [Sulfamethoxazole-Tmp Ds Tablet] Oxymetazoline 0.05% [Afrin (BKC)] 15 spray NASAL BID #1 spray.btl 10/04/17 Cholecalciferol (Vitamin D3) 5,000 unit PO QWEEK 01/17/18 [Vitamin D3] Clonidine HCl 0.2 mg PO Q8 01/17/18 Duloxetine HCl 20 mg PO DAILY 01/17/18 Levocetirizine Dihydrochloride 5 mg PO DAILY 01/17/18 [Xyzal] Mometasone Furoate [Elocon] 15 gm TP BID 01/17/18 Naproxen 500 mg PO BID PRN PRN 01/17/18 Oxycodone [Oxyir] 5 mg PO Q6H PRN PRN 01/17/18 Paroxetine HCl [Paxil] 30 mg PO BID 01/17/18 Prednisone See Taper PO DAILY 01/17/18 Tizanidine HCl 4 mg PO BID 01/17/18 proMETHazine tablet [Phenergan] 12.5 mg PO Q6H PRN PRN 01/17/18 Surgical History: Surgical History (Last Updated 10/01/17 @ 07:25 by Ivonne Sunshine) History of lung biopsy (Resolved) Z98.890 History of tubal ligation (Resolved) Z98.51 Surgical History: - - BLTL. 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 Lives: Spouse/ Significant Other Smoking Status: Former smoker Tobacco Use: Cigarettes Alcohol: None Drugs: None - *Family History Maternal History Items: Diabetes, Hypertension, Stroke Paternal History Items: Stroke Review of Systems Constitutional: Denies: Chills, Fever, Weight Change HEENT: Denies: Head Aches, Sinus Congestion, Sinus Drainage Cardiovascular: Denies: Chest Pain, Palpitations Respiratory: Denies: Cough, Shortness of breath at rest, Sputum production Gastrointestinal: Denies: Abdominal Pain, Nausea, Vomiting Genitourinary: Denies: Dysuria Musculoskeletal: Denies: Joint Pain, Joint Tenderness Skin: Denies: Rash, Wounds Neurological: Denies: Numbness, Tingling, Focal weakness Psychiatric: Denies: Anxiety, Depression, Homicidal Ideations, Suicidal Ideations Hematologic/ Lymphatic: Denies: Easy Bruising, Easy Bleeding Patient Problems: Active and Suspected Problems (Last Updated 10/01/17 @ 07:25 by Ivonne Sunshine) Cystitis (Acute) Acute metabolic encephalopathy (Acute) Sepsis (Acute) - Physical Exam General: Alert, Oriented x3, Cooperative HEENT: Atraumatic, PERRLA, EOMI, Normocephalic Neck: Supple, No JVD, Negative Carotid Bruits Lungs: Clear to auscultation, Normal air movement Cardiovascular: Regular rate, No murmurs Abdomen: Bowel Sounds Present, Soft, Non Tender Extremities: No edema, Capillary Refill Less than 3 Seconds Skin: No rashes, No breakdown Musculoskeletal: No Tenderness to Palpation of Joints or Extremities Neurological: Cranial nerves II-XII grossly intact Psych/Mental Status: Normal Affect, Appropriate Vital Signs Temp Pulse Resp BP Pulse Ox 36.7 C 100 15 115/71 100 01/19/18 08:30 01/19/18 08:30 01/19/18 08:30 01/19/18 08:30 01/19/18 08:30 Oxygen Flow Rate (L/min) 4 Oxygen Delivery Method Nasal Cannula Weight: 70.715 kg Body Mass Index (BMI) 27.6 Intake and Output for Last 24 Hours 01/17/18 01/18/18 01/19/18 23:59 23:59 23:59 Intake Total 499 / 499 654 / 654 1367 / 1367 Output Total 450 / 450 525 / 525 600 / 600 Balance 49 / 49 129 / 129 767 / 767 Laboratory Tests Past 24 Hrs 01/19/18 01/19/18 06:40 06:40 WBC 22.1 H RBC 3.78 L Hgb 10.4 L Hct 31.3 L MCV 82.8 MCH 27.5 MCHC 33.2 RDW 15.6 H RDW Differential 46.8 H Plt Count 289 MPV 9.0 Immature Gran % (Auto) 0.200 Neut % (Auto) 77.8 H Lymph % (Auto) 6.3 L [place] % (Auto) 13.3 H Eos % (Auto) 2.0 Baso % (Auto) 0.4 Absolute Neuts (auto) 17.2 H Absolute Lymphs (auto) 1.39 Total Counted Pending Triglycerides 61 Cholesterol 197 LDL Cholesterol 136 H VLDL Cholesterol 12 HDL Cholesterol 49 mri reviewed, no acute mra reviewed, normal, no nick aneurysm cta reviewed 02/03: no nick aneurysm Assessment/Plan All Active Problems (Last Updated 10/01/17 @ 07:25 by Ivonne Sunshine) Cystitis (Acute) Acute metabolic encephalopathy (Acute) Sepsis (Acute) History of lung biopsy (Resolved) History of tubal ligation (Resolved) Costochondritis, acute (Acute) Acute upper respiratory infection (Acute) Bronchiectasis with acute exacerbation (Acute) Acute suppurative otitis media (Acute) Acute exacerbation of chronic obstructive pulmonary disease (Acute) Hypokalemia (Acute) Left otitis media (Acute) Hypokalemia (Acute) Leukocytosis (Acute) Chest pain (Acute) Pleuritic chest discomfort (Acute) Overdose (Acute) metabolic encephalopathy, resolved, no evidence of acid purifier injury ok to dc from neuro standpoint when medically cleared
--- NOTE | 2018-01-19 14:04 | PCM.DC ---
- Discharge Diagnoses Current Active Problems: Current Active and Chronic Problems (Last Updated 10/01/17 @ 07:25 by Ivonne Sunshine) Cystitis (Acute) Acute metabolic encephalopathy (Acute) Chronic respiratory failure (Chronic) Sepsis (Acute) You will use the following diet at home:: Cardiac Your food should be the consistency of: Regular Your liquids should be the consistency of: Regular/Thin Discharge Activity: Return to Normal Activity Allergies/Adverse Reactions: Allergies cephalexin monohydrate [From Keflex] Allergy (Mild, Verified 01/17/18 15:09) Itching doxycycline Adverse Reaction (Verified 01/17/18 15:09) Vomiting moxifloxacin HCl [From Avelox] Adverse Reaction (Verified 01/17/18 15:09) Vomiting Medications to take at Discharge Albuterol Inhaler [Ventolin Hfa] 1 - 2 puff INHALATION Q6H PRN PRN 09/05/16 Losartan Potassium [Cozaar] 50 mg PO BID 09/06/16 HydrOXYzine [Atarax] 50 mg PO Q8 10/12/16 Leflunomide 20 mg PO DAILY 07/31/17 Albuterol Aerosols [Ventolin Aerosols] 2.5 mg INHALATION Q4H PRN PRN 08/13/17 Sulfamethoxazole/Trimethoprim [Sulfamethoxazole-Tmp Ds Tablet] 1 tab PO MOWEFR 08/13/17 Oxymetazoline 0.05% [Afrin (BKC)] 15 spray NASAL BID #1 spray.btl 10/04/17 Cholecalciferol (Vitamin D3) [Vitamin D3] 5,000 unit PO QWEEK 01/17/18 Clonidine HCl 0.2 mg PO Q8 01/17/18 Duloxetine HCl 20 mg PO DAILY 01/17/18 Levocetirizine Dihydrochloride [Xyzal] 5 mg PO DAILY 01/17/18 Mometasone Furoate [Elocon] 15 gm TP BID 01/17/18 Naproxen 500 mg PO BID PRN PRN 01/17/18 Oxycodone [Oxyir] 5 mg PO Q6H PRN PRN 01/17/18 Paroxetine HCl [Paxil] 30 mg PO BID 01/17/18 Prednisone See Taper PO DAILY 01/17/18 Tizanidine HCl 4 mg PO BID 01/17/18 proMETHazine tablet [Phenergan tablet] 12.5 mg PO Q6H PRN PRN 01/17/18 Amlodipine [Norvasc] 5 mg PO DAILY #30 tab 01/19/18 Atorvastatin Calcium [Lipitor] 10 mg PO QHS #30 tab 01/19/18 Cefdinir [Omnicef [equiv]] 300 mg PO Q12H #10 cap 01/19/18 Metronidazole [Flagyl] 500 mg PO BID #10 tab 01/19/18 The following prescriptions were given: Amlodipine [Norvasc] 5 mg PO DAILY #30 tab Atorvastatin Calcium [Lipitor] 10 mg PO QHS #30 tab Cefdinir [Omnicef [equiv]] 300 mg PO Q12H #10 cap Metronidazole [Flagyl] 500 mg PO BID #10 tab Primary Care Physician: John Sears MD [Primary Care Provider] - Please follow up with your Primary Care Physician in: 1-2 weeks Proposed Discharge Date: 01/19/18
--- NOTE | 2018-01-19 14:29 | PCM.DC.SUM ---
<Gaetano Prince - Last Filed: 01/19/18 14:29> Discharge Date and Diagnosis - Problem List Patient Problems: Active and Suspected Problems (Last Updated 10/01/17 @ 07:25 by Ivonne Sunshine) Cystitis (Acute) Acute metabolic encephalopathy (Acute) Sepsis (Acute) Date of Admission: 01/17/18 Date of Discharge: 01/19/18 - Primary Discharge Diagnosis Active and Suspected Problems (Last Updated 10/01/17 @ 07:25 by Ivonne Sunshine) Acute sepsis 2/2 acute cystitis with e coli and alpha hemolytic organism acute metabolic encephalopathy 2/2 above trichomoniasis chronic hypoxic respiratory failure 2/2 sarcoidosis, bronchiectasis, COPD HTN HLD Dehydration - Secondary Discharge Diagnosis Chronic Problems (Last Updated 10/01/17 @ 07:25 by Ivonne Sunshine) Chronic respiratory failure (Chronic) Chronic cough (Chronic) Bronchiectasis (Chronic) Asthma (Chronic) COPD (chronic obstructive pulmonary disease) (Chronic) Chronic pain (Chronic) Cough (Chronic) HTN (hypertension) (Chronic) Sarcoidosis (Chronic) Hospital Course and Treatment Imaging Results: CT/Brain/Head without Contrast IMPRESSION: No acute intracranial abnormality. RAD/Chest PA and Lateral IMPRESSION: Stable fibrotic changes when compared with 07/24/2017. Resolution of the superimposed airspace opacities that were seen on 10/19/2017. 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 If there is high clinical concern for aneurysm, consider conventional angiography. MRI/MRA Neck WITH and W/O Contrast IMPRESSION: Negative MR angiogram of the neck. Hypoplastic left vertebral artery, normal variation. Echo: Interpretation Summary The estimated ejection fraction is 65 %. Stage 1 diastolic dysfunction. Bubble contrast study negative for right to left interatrial shunt. Unable to estimate RV systolic pressure due to inadequate jet, pulmonary artery pressure probably normal. Compared to echo report dated 05/17/2009, no appreciable changes noted. MRI/Brain W/WO Contrast IMPRESSION: No evidence of mass, edema, or abnormal enhancement. Partially empty sella, incidental finding. Trace fluid in the right mastoid air cells. Consults: [facility] - neuro Operations: None Procedures: 2-D Echocardiogram Summary of Care Provided: Physical exam on day of discharge: General: Resting comfortably NAD Psych: A/Ox3 normal affect HEENT: PEARRLA AT NC Neck: Supple NT CV: RRR no m/t/r/g/h Resp: CTA Abd: [id number] Soft NT no guarding or rigidity Ext: DP2+= no edema Skin: W/D normal turgor Lymph/Heme: No active bleeding or adenopathy Neuro: CN2-12 intact Hospital course: The patient is a 52 year old F with a hx of chronic hypoxic respiratory failure 2/2 sarcoidosis, bronchiectasis, and COPD on 4 lpm o2 chronically, hx of htn, who presented to the ER with lethargy and confusion, and found to be septic with a UTI and acute metabolic encephalopathy. She was admitted to PCU and started on rocephin for UTI and flagyl as the UA showed trichomonas as well, she was also given IV fluids as she had an elevated BUN and dehydration was suspected. She was briefly on BiPAP in the ER as an ABG showed acidosis and increased CO2 however she had no respiratory complaints and did not want to keep the mask on, and we agreed these were probably chronic changes and trialed her off of it, which she tolerated well. She improved overnight. The following day she did develop sudden onset of double vision so a stroke workup was initiated with MRI brain / MRA head and neck, echo, lipid panel, and neuro consult. The double vision resolved by the following day and the neuro workup was negative. Neurology felt that she had metabolic encephalopathy. She was started on norvasc for her BP and low dose statin for elevated LDL. Urine culture demonstrated e coli resistant to quinolones and an alpha hemolytic organism. She was transitioned to cefdinir and oral flagyl to complete 7 days of therapy. I did advise her to have any partners treated for trich. She was advised to follow up with her PCP. She was discharged home in stable condition. She was somewhat weak, and home care was advised, however she refused. This patient was seen by Gaetano Prince PA-C under the supervision of Doctor Cresencio. [] Discharge Diet: Low fat/ Low Cholesterol, 2000 mg Sodium Diet Discharge Activity: Return to Normal Activity Home Medications: Medications to take at Discharge Albuterol Inhaler [Ventolin Hfa] 1 - 2 puff INHALATION Q6H PRN PRN 09/05/16 Losartan Potassium [Cozaar] 50 mg PO BID 09/06/16 HydrOXYzine [Atarax] 50 mg PO Q8 10/12/16 Leflunomide 20 mg PO DAILY 07/31/17 Albuterol Aerosols [Ventolin Aerosols] 2.5 mg INHALATION Q4H PRN PRN 08/13/17 Sulfamethoxazole/Trimethoprim [Sulfamethoxazole-Tmp Ds Tablet] 1 tab PO MOWEFR 08/13/17 Oxymetazoline 0.05% [Afrin (BKC)] 15 spray NASAL BID #1 spray.btl 10/04/17 Cholecalciferol (Vitamin D3) [Vitamin D3] 5,000 unit PO QWEEK 01/17/18 Clonidine HCl 0.2 mg PO Q8 01/17/18 Duloxetine HCl 20 mg PO DAILY 01/17/18 Levocetirizine Dihydrochloride [Xyzal] 5 mg PO DAILY 01/17/18 Mometasone Furoate [Elocon] 15 gm TP BID 01/17/18 Naproxen 500 mg PO BID PRN PRN 01/17/18 Oxycodone [Oxyir] 5 mg PO Q6H PRN PRN 01/17/18 Paroxetine HCl [Paxil] 30 mg PO BID 01/17/18 Prednisone See Taper PO DAILY 01/17/18 Tizanidine HCl 4 mg PO BID 01/17/18 proMETHazine tablet [Phenergan tablet] 12.5 mg PO Q6H PRN PRN 01/17/18 Amlodipine [Norvasc] 5 mg PO DAILY #30 tab 01/19/18 Atorvastatin Calcium [Lipitor] 10 mg PO QHS #30 tab 01/19/18 Cefdinir [Omnicef [equiv]] 300 mg PO Q12H #10 cap 01/19/18 Metronidazole [Flagyl] 500 mg PO BID #10 tab 01/19/18 Following Prescrptions Were Given to Patient: Amlodipine [Norvasc] 5 mg PO DAILY #30 tab Atorvastatin Calcium [Lipitor] 10 mg PO QHS #30 tab Cefdinir [Omnicef [equiv]] 300 mg PO Q12H #10 cap Metronidazole [Flagyl] 500 mg PO BID #10 tab Primary Care Physician: John Sears MD [Primary Care Provider] - Please follow up with your Primary Care Physician in: 1-2 weeks Disposition: Home Minutes spent on discharge:: 40 Patient Condition:: Stable Medical Necessity - Tobacco Use Smoking Status: Former smoker Tobacco Use: Cigarettes Meaningful Use Info Meaningful Use Diagnoses (Choose all that apply): None applicable <John Dupont - Last Filed: 01/19/18 15:02> Discharge Date and Diagnosis - Primary Discharge Diagnosis Active and Suspected Problems (Last Updated 10/01/17 @ 07:25 by Ivonne Sunshine) Cystitis (Acute) Acute metabolic encephalopathy (Acute) Sepsis (Acute) - Secondary Discharge Diagnosis Chronic Problems (Last Updated 10/01/17 @ 07:25 by Ivonne Sunshine) Chronic respiratory failure (Chronic) Chronic cough (Chronic) Bronchiectasis (Chronic) Asthma (Chronic) COPD (chronic obstructive pulmonary disease) (Chronic) Chronic pain (Chronic) Cough (Chronic) HTN (hypertension) (Chronic) Sarcoidosis (Chronic) Hospital Course and Treatment Operations: None Procedures: 2-D Echocardiogram Summary of Care Provided: Patient seen and examined independently. Data reviewed. I agree with the above note by the physician land surveyor assistant. The patient is a 52 year old F presents with confusion and lethargy. Patient was septic and found to have UTI and confused. Patient was put on BiPAP initially and then transition back over to 4 L. Patient was seen in consultation by pulmonology. No new pulmonary needs. Patient was found to have urinary tract infection with E. coli. Patient will be discharged with Ceftin ear and Flagyl for 7 days. Patient also did complain of diplopia on the first. Patient underwent a stroke workup that showed no acute process. Patient was seen by neurology felt this probably with her metabolic encephalopathy and no further neurologic workup necessary. There was mention of a possible aneurysm on MRA but neurology's evaluation did not see that on his review. May been just related with her tortuous vessels. [] Discharge Diet: Low fat/ Low Cholesterol, 2000 mg Sodium Diet Discharge Activity: Return to Normal Activity Disposition: Home Minutes spent on discharge:: 40 Patient Condition:: Stable Meaningful Use Info Meaningful Use Diagnoses (Choose all that apply): None applicable Code Visit Inpatient E&M: 68668 Disch Hosp
--- NOTE | 2018-01-19 14:41 | DS.PCM_ITS ---
<Gaetano Prince - Last Filed: 01/19/18 14:29> Discharge Date and Diagnosis - Problem List Patient Problems: Active and Suspected Problems (Last Updated 10/01/17 @ 07:25 by Ivonne Sunshine) Cystitis (Acute) Acute metabolic encephalopathy (Acute) Sepsis (Acute) Date of Admission: 01/17/18 Date of Discharge: 01/19/18 - Primary Discharge Diagnosis Active and Suspected Problems (Last Updated 10/01/17 @ 07:25 by Ivonne Sunshine) Acute sepsis 2/2 acute cystitis with e coli and alpha hemolytic organism acute metabolic encephalopathy 2/2 above trichomoniasis chronic hypoxic respiratory failure 2/2 sarcoidosis, bronchiectasis, COPD HTN HLD Dehydration - Secondary Discharge Diagnosis Chronic Problems (Last Updated 10/01/17 @ 07:25 by Ivonne Sunshine) Chronic respiratory failure (Chronic) Chronic cough (Chronic) Bronchiectasis (Chronic) Asthma (Chronic) COPD (chronic obstructive pulmonary disease) (Chronic) Chronic pain (Chronic) Cough (Chronic) HTN (hypertension) (Chronic) Sarcoidosis (Chronic) Hospital Course and Treatment Imaging Results: CT/Brain/Head without Contrast IMPRESSION: No acute intracranial abnormality. RAD/Chest PA and Lateral IMPRESSION: Stable fibrotic changes when compared with 07/24/2017. Resolution of the superimposed airspace opacities that were seen on 10/19/2017. 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 If there is high clinical concern for aneurysm, consider conventional angiography. MRI/MRA Neck WITH and W/O Contrast IMPRESSION: Negative MR angiogram of the neck. Hypoplastic left vertebral artery, normal variation. Echo: Interpretation Summary The estimated ejection fraction is 65 %. Stage 1 diastolic dysfunction. Bubble contrast study negative for right to left interatrial shunt. Unable to estimate RV systolic pressure due to inadequate jet, pulmonary artery pressure probably normal. Compared to echo report dated 05/17/2009, no appreciable changes noted. MRI/Brain W/WO Contrast IMPRESSION: No evidence of mass, edema, or abnormal enhancement. Partially empty sella, incidental finding. Trace fluid in the right mastoid air cells. Consults: [facility] - neuro Operations: None Procedures: 2-D Echocardiogram Summary of Care Provided: Physical exam on day of discharge: General: Resting comfortably NAD Psych: A/Ox3 normal affect HEENT: PEARRLA AT NC Neck: Supple NT CV: RRR no m/t/r/g/h Resp: CTA Abd: [id number] Soft NT no guarding or rigidity Ext: DP2+= no edema Skin: W/D normal turgor Lymph/Heme: No active bleeding or adenopathy Neuro: CN2-12 intact Hospital course: The patient is a 52 year old F with a hx of chronic hypoxic respiratory failure 2/2 sarcoidosis, bronchiectasis, and COPD on 4 lpm o2 chronically, hx of htn, who presented to the ER with lethargy and confusion, and found to be septic with a UTI and acute metabolic encephalopathy. She was admitted to PCU and started on rocephin for UTI and flagyl as the UA showed trichomonas as well, she was also given IV fluids as she had an elevated BUN and dehydration was suspected. She was briefly on BiPAP in the ER as an ABG showed acidosis and increased CO2 however she had no respiratory complaints and did not want to keep the mask on, and we agreed these were probably chronic changes and trialed her off of it, which she tolerated well. She improved overnight. The following day she did develop sudden onset of double vision so a stroke workup was initiated with MRI brain / MRA head and neck, echo, lipid panel, and neuro consult. The double vision resolved by the following day and the neuro workup was negative. Neurology felt that she had metabolic encephalopathy. She was started on norvasc for her BP and low dose statin for elevated LDL. Urine culture demonstrated e coli resistant to quinolones and an alpha hemolytic organism. She was transitioned to cefdinir and oral flagyl to complete 7 days of therapy. I did advise her to have any partners treated for trich. She was advised to follow up with her PCP. She was discharged home in stable condition. She was somewhat weak, and home care was advised, however she refused. This patient was seen by Gaetano Prince PA-C under the supervision of Doctor Cresencio. [] Discharge Diet: Low fat/ Low Cholesterol, 2000 mg Sodium Diet Discharge Activity: Return to Normal Activity Home Medications: Medications to take at Discharge Albuterol Inhaler [Ventolin Hfa] 1 - 2 puff INHALATION Q6H PRN PRN 09/05/16 Losartan Potassium [Cozaar] 50 mg PO BID 09/06/16 HydrOXYzine [Atarax] 50 mg PO Q8 10/12/16 Leflunomide 20 mg PO DAILY 07/31/17 Albuterol Aerosols [Ventolin Aerosols] 2.5 mg INHALATION Q4H PRN PRN 08/13/17 Sulfamethoxazole/Trimethoprim [Sulfamethoxazole-Tmp Ds Tablet] 1 tab PO MOWEFR 08/13/17 Oxymetazoline 0.05% [Afrin (BKC)] 15 spray NASAL BID #1 spray.btl 10/04/17 Cholecalciferol (Vitamin D3) [Vitamin D3] 5,000 unit PO QWEEK 01/17/18 Clonidine HCl 0.2 mg PO Q8 01/17/18 Duloxetine HCl 20 mg PO DAILY 01/17/18 Levocetirizine Dihydrochloride [Xyzal] 5 mg PO DAILY 01/17/18 Mometasone Furoate [Elocon] 15 gm TP BID 01/17/18 Naproxen 500 mg PO BID PRN PRN 01/17/18 Oxycodone [Oxyir] 5 mg PO Q6H PRN PRN 01/17/18 Paroxetine HCl [Paxil] 30 mg PO BID 01/17/18 Prednisone See Taper PO DAILY 01/17/18 Tizanidine HCl 4 mg PO BID 01/17/18 proMETHazine tablet [Phenergan tablet] 12.5 mg PO Q6H PRN PRN 01/17/18 Amlodipine [Norvasc] 5 mg PO DAILY #30 tab 01/19/18 Atorvastatin Calcium [Lipitor] 10 mg PO QHS #30 tab 01/19/18 Cefdinir [Omnicef [equiv]] 300 mg PO Q12H #10 cap 01/19/18 Metronidazole [Flagyl] 500 mg PO BID #10 tab 01/19/18 Following Prescrptions Were Given to Patient: Amlodipine [Norvasc] 5 mg PO DAILY #30 tab Atorvastatin Calcium [Lipitor] 10 mg PO QHS #30 tab Cefdinir [Omnicef [equiv]] 300 mg PO Q12H #10 cap Metronidazole [Flagyl] 500 mg PO BID #10 tab Primary Care Physician: John Sears MD [Primary Care Provider] - Please follow up with your Primary Care Physician in: 1-2 weeks Disposition: Home Minutes spent on discharge:: 40 Patient Condition:: Stable Medical Necessity - Tobacco Use Smoking Status: Former smoker Tobacco Use: Cigarettes Meaningful Use Info Meaningful Use Diagnoses (Choose all that apply): None applicable <John Dupont - Last Filed: 01/19/18 15:02> Discharge Date and Diagnosis - Primary Discharge Diagnosis Active and Suspected Problems (Last Updated 10/01/17 @ 07:25 by Ivonne Sunshine) Cystitis (Acute) Acute metabolic encephalopathy (Acute) Sepsis (Acute) - Secondary Discharge Diagnosis Chronic Problems (Last Updated 10/01/17 @ 07:25 by Ivonne Sunshine) Chronic respiratory failure (Chronic) Chronic cough (Chronic) Bronchiectasis (Chronic) Asthma (Chronic) COPD (chronic obstructive pulmonary disease) (Chronic) Chronic pain (Chronic) Cough (Chronic) HTN (hypertension) (Chronic) Sarcoidosis (Chronic) Hospital Course and Treatment Operations: None Procedures: 2-D Echocardiogram Summary of Care Provided: Patient seen and examined independently. Data reviewed. I agree with the above note by the physician safety admin assistant. The patient is a 52 year old F presents with confusion and lethargy. Patient was septic and found to have UTI and confused. Patient was put on BiPAP initially and then transition back over to 4 L. Patient was seen in consultation by pulmonology. No new pulmonary needs. Patient was found to have urinary tract infection with E. coli. Patient will be discharged with Ceftin ear and Flagyl for 7 days. Patient also did complain of diplopia on the first. Patient underwent a stroke workup that showed no acute process. Patient was seen by neurology felt this probably with her metabolic encephalopathy and no further neurologic workup necessary. There was mention of a possible aneurysm on MRA but neurology's evaluation did not see that on his review. May been just related with her tortuous vessels. [] Discharge Diet: Low fat/ Low Cholesterol, 2000 mg Sodium Diet Discharge Activity: Return to Normal Activity Disposition: Home Minutes spent on discharge:: 40 Patient Condition:: Stable Meaningful Use Info Meaningful Use Diagnoses (Choose all that apply): None applicable Code Visit Inpatient E&M: 47236 Disch Hosp
[2018-01-19 14:50] LABS: Differential Comment SCANNED
[2018-01-19] MEDS: Magnesium Hydroxide 30 ML UDC PO (15:23)
--- NOTE | 2018-01-19 16:10 | NURSING ---
Discharge teaching completed. Patient and voice understanding of same. Questions answered. Denied further questions when asked.
[2018-01-30 10:46] LABS: Pathologist Review Reviewed
== END 2018-01-19 16:15 | disposition home or self-care (01) | DRG 871 ==
LOC: ED 16:08 → PCU 18:43
PROVIDERS: Physician Assistant; Admitting Provider Hospitalist; Emergency Provider Emergency Medicine; Family Provider Family Medicine; PCP Family Medicine
DX: A41.9 Sepsis, unspecified organism (principal); G93.41 Metabolic encephalopathy; N30.00 Acute cystitis without hematuria; J96.11 Chronic respiratory failure with hypoxia; Z99.81 Dependence on supplemental oxygen; D86.9 Sarcoidosis, unspecified; A59.9 Trichomoniasis, unspecified; I10 Essential (primary) hypertension; E78.5 Hyperlipidemia, unspecified; E86.0 Dehydration; B96.20 Unspecified Escherichia coli [E. coli] as the cause of diseases classified elsewhere; B96.89 Other specified bacterial agents as the cause of diseases classified elsewhere; R05 Cough; G89.29 Other chronic pain; J47.9 Bronchiectasis, uncomplicated; Z16.23 Resistance to quinolones and fluoroquinolones; Z87.891 Personal history of nicotine dependence
CPT/HCPCS: 36415; 36600; 51702; 70450; 70544; 70549; 70553; 71046; 80048; 80053; 80061; 80307; 80320; 81001; 82140; 82550; 82803; 82962; 83036; 83605; 84484; 85025; 87040; 87077; 87086; 87088; 87186; 93005; 93306; 94002; 94640; 94667; 94668; 97110; 97161; 97166; 97802; 99285; A9585; J7030; J7050; A4216; G0480

== ENCOUNTER 2018-01-23 10:10 | Emergency (ER) | payer MEDICARE, SELFPAY ==
--- NOTE | 2018-01-23 10:10 | DT_ITS ---
This patient was seen during an EMR downtime January 21, 2018 - January 28, 2018. This patient may have a combination of paper and electronic documentation or all paper documentation. All documentation is viewable within the e-chart portion of [employer] for each patient visit.
--- NOTE | 2018-01-23 11:41 | RAD_ITS ---
STUDY: X-RAY - ACUTE ABDOMINAL SERIES REASON FOR EXAM: Female, 52 years old. Abdominal pain TECHNIQUE: Single view of the chest. Supine, and erect view(s) of the abdomen were obtained. COMPARISON: Chest x-ray 01/17/2018 FINDINGS: Cardiac monitoring leads overlie the chest. Chronic appearing changes are seen within both lungs. Normal size heart. Normal mediastinum and jordin. Normal visualized pulmonary arteries. Normal visualized aortic arch and descending thoracic aorta. There is an abundance of fecal material throughout the colon. The soft tissue structures of the abdomen and pelvis are unremarkable. Normal visualized osseous structures. RAD/Acute Abdomen Inc Chest IMPRESSION: There is stool throughout the colon, in amounts suggesting constipation in the appropriate clinical setting. Fibrotic changes throughout both lungs. Please note that this study was performed January 23, 2018, but only now placed in my queue for interpretation, explaining the delay in reporting. Electronically Signed: Curt George DO at 11:09 EDT Tel , Service support ,
[2018-01-26 10:01] LABS: ALB/GLOB Ratio 0.6 RATIO (0.9-2.4); AST(SGOT) 38 U/L (15-37); Alanine Aminotransfer ALT/SGPT 17 U/L (13-56); Albumin, Serum 3.2 g/dL (3.2-5.0); Alkaline Phosphatase 123 U/L (45-117); Anion Gap 6 (5-15); BUN 32 mg/dL (7-18); BUN/Creat Ratio 24.8 RATIO (10-20); Calcium,Total 9.2 mg/dL (8.5-10.1); Chloride 98 mmol/L (98-107); Creatinine, Serum 1.29 mg/dL (0.55-1.02); EST Glomerular Filtration Rate 46 mL/min (>60); Est Glom Filt Rate - Afr Amer 56 mL/min (>60); Globulin 5.2 g/dL (2.2-4.2); Glucose 178 mg/dL (74-106); Lipase 120 U/L (73-393); Potassium 5.7 mmol/L (3.5-5.1); Protein, Total 8.4 g/dL (6.4-8.2); Sodium Level 134 mmol/L (136-145)
[2018-01-26 10:09] LABS: Anion Gap 7 (5-15); BUN 25 mg/dL (7-18); BUN/Creat Ratio 23.8 RATIO (10-20); Calcium,Total 9.1 mg/dL (8.5-10.1); Chloride 99 mmol/L (98-107); Creatinine, Serum 1.05 mg/dL (0.55-1.02); EST Glomerular Filtration Rate 58 mL/min (>60); Est Glom Filt Rate - Afr Amer 70 mL/min (>60); Glucose 182 mg/dL (74-106); Potassium 3.6 mmol/L (3.5-5.1); Sodium Level 134 mmol/L (136-145)
[2018-01-26 11:04] LABS: Mucous, Urine 0 SEEN /hpf (<or=2+); Red Blood Cells-Urine 0 SEEN /hpf (0-5); White Blood Cells 0 SEEN /hpf (0-5)
[2018-01-26 11:09] LABS: Bacteria RARE /hpf (None Seen); Color, Urine Yellow (Yellow); Glucose, Dipstick 100 mg/dl (Normal); Ketone-Dipstick Negative (Negative); Leukocyte Esterase-Dipstick 25 /ul (Negative); Nitrite-Dipstick Negative (Negative); Occult Blood-Urine Negative /ul (Negative); Protein-Dipstick 15 mg/dl (Negative); Squamous Epithelial Cells - UA 0-5 SEEN /hpf (5-10); Urine Bilirubin Dipstick Negative (Negative); Urine Clarity Clear (Clear); Urine Urobilinogen Normal (Normal); Urine pH 6.5 (5.0 - 8.0)
[2018-01-30 14:48] LABS: Hematocrit 30.4 % (37-47); Hemoglobin 10.6 g/dl (12.0-15.0); Mean Corpuscular Hgb 28.4 pg (27.0-32.0); Mean Corpuscular Volume 81.5 fL (81-99); Red Blood Count 3.73 M/mm3 (4.2-5.4); White Blood Count 19.6 K/mm3 (4.4-11.0)
[2018-01-30 14:49] LABS: Mean Corp Hgb Conc 34.9 g/gl (32-36); Mean Platelet Vol. 9.3 fl (6.2-12.0); POSITIVE COUNT NO; POSITIVE DIFFERENTIAL NO; POSITIVE MORPHOLOGY NO; Platelet Count 329 K/mm3 (150-450); RBC Distribution Width SD 43.1 fl (35.1-43.9)
[2018-01-30 14:51] LABS: Basophil% 0.4 % (0-1); Eosinophils% 2.8 % (0-5); Lymphocyte % 5.3 % (19-41)
[2018-01-30 14:53] LABS: Absolute Lymphocyte Count 1.04 X10^3/ul (0.83-4.51); Absolute Neutrophil Count 16.1 X10^3/uL (2.0-7.7); Basophil# 0.08 X10^3/uL; Eosinophil# 0.55 X10^3/uL; Lymphocyte # 1.04 X10^3/ul (4.0); Monocyte# 1.77 X10^3/uL; Neutrophil # 16.08 X10^3/uL (2.7-7.7)
[2018-01-30 15:31] LABS: Anisocytosis 1+; Target Cells 2+
[2018-01-30 15:32] LABS: Differential Comment SCANNED; Platelet Estimate ADEQUATE (ADEQ)
[2018-01-31 09:52] LABS: Pathologist Review Reviewed
== END 2018-01-23 15:50 | disposition home or self-care (01) ==
LOC: ED 01-24 16:33
PROVIDERS: Emergency Provider Emergency Medicine; Family Provider Family Medicine; PCP Family Medicine
DX: E87.5 Hyperkalemia (principal); E87.1 Hypo-osmolality and hyponatremia; D64.9 Anemia, unspecified; I10 Essential (primary) hypertension; D86.9 Sarcoidosis, unspecified; J47.9 Bronchiectasis, uncomplicated; Z87.891 Personal history of nicotine dependence
CPT/HCPCS: 36415; 74022; 80048; 80053; 81001; 83690; 85025; 96372; 99285; J7030; J7050; A4216; J0610; J3490

== ENCOUNTER 2018-02-03 16:06 | Emergency (ER) | payer MEDICARE, SELFPAY ==
[2018-02-03 16:12] VITALS: BP 96/48; PULSE 115; RESP 22; TEMP 37; O2SAT 95; BMI 23.2
--- NOTE | 2018-02-03 16:24 | ED.DCSUM_ITS ---
- ER Visit Summary Date of Service: 02/03/18 Chief Complaint: [] Resents with possible seizure. The patient stated she rolled out of bed but does not remember it. She fell onto the floor below. No injury. She stated that her told her she had some shaking that went away quickly. She did not lose control of her bowel or bladder. She did bite her tongue. She had remote seizures several years ago. She is 9 medication for this. She was on seizure medicines remotely. She was admitted for UTI with cystitis sepsis. 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 Denies any other complaints except for nausea. She did take accidentally 1 of her husbands doses of metformin. This was several hours ago. History of Present Illness: The patient is a 52 F [] Physical Examination: [] Vital signs reviewed General: Well-nourished well-developed Head: Normocephalic atraumatic Eyes: Pupils equal round and reactive to light extraocular movements intact ENT: TMs clear no hemotympanum no trauma Neck: Nontender full range of motion Cardiovascular: Regular rate rhythm no murmurs normal S1-S2 Respiratory: No distress distant breath sounds but present. No wheezing chest nontender Abdomen: Soft nontender nondistended normal bowel sounds no masses Back: Nontender no CVA tenderness Extremities: Nontender active range of motion ?4 extremities no trauma Skin: Normal color no trauma Neuro alert oriented cranial nerves II through XII intact normal strength sensation reflexes Test Results: [] Emergency Department Course and Treatment: [] Patient given a liter fluid and Zofran. Lab work obtained. CBC normal except a white count of 19.4. This is chronic for the patient. Patient has chronic anemia with a hemoglobin 9.7. Chemistries normal except potassium 2.8 sodium 135. Patient has history of hypo -kalemia as well. She does not take any medicines for it. At this time patient given oral K-Dur. Given IV fluids Zofran. She ambulated to the bathroom without problems. She is resting comfortably. I do not think she needs to be admitted. I have a low suspicion for an actual seizure. She has no postictal state. I feel she can follow-up. Treatment Plan: [] Disposition: [] Impression: [] Fall from bed with reported possible seizure Hypokalemia acute on chronic This note was generated with Dragon dictation software. It may contain incorrect words, spelling, and punctuation that were not noted in review of the chart prior to signing ED Disposition - Plan for ED Patient: Chief Complaint: Shortness of Breath Referrals: John Sears MD [Primary Care Provider] -
[2018-02-03 16:47] LABS: Absolute Lymphocyte Count 3.87 X10^3/ul (0.83-4.51); Absolute Neutrophil Count 12.8 X10^3/uL (2.0-7.7); Basophil# 0.08 X10^3/uL; Basophil% 0.4 % (0-1); Eosinophil# 0.45 X10^3/uL; Eosinophils% 2.3 % (0-5); Hematocrit 27.5 % (37-47); Hemoglobin 9.7 g/dl (12.0-15.0); Lymphocyte # 3.87 X10^3/ul (4.0); Lymphocyte % 19.9 % (19-41); Mean Corp Hgb Conc 35.3 g/gl (32-36); Mean Corpuscular Hgb 28.2 pg (27.0-32.0); Mean Corpuscular Volume 79.9 fL (81-99); Mean Platelet Vol. 8.6 fl (6.2-12.0); Monocyte# 2.13 X10^3/uL; Neutrophil % 65.8 % (47-70); Platelet Count 488 K/mm3 (150-450); RBC Distribution Width CV 15.9 % (11.6-14.6); RBC Distribution Width SD 44.2 fl (35.1-43.9); Red Blood Count 3.44 M/mm3 (4.2-5.4); White Blood Count 19.4 K/mm3 (4.4-11.0)
[2018-02-03] MEDS: Ondansetron 4 MG/2 ML Vial IV (16:49)
[2018-02-03 16:55] LABS: Differential Indicated SCAN CRITERIA MET; POSITIVE COUNT NO; POSITIVE DIFFERENTIAL YES; POSITIVE MORPHOLOGY NO
[2018-02-03 17:16] LABS: Anion Gap 11 (5-15); BUN 8 mg/dL (7-18); BUN/Creat Ratio 7.8 RATIO (10-20); Calcium,Total 8.9 mg/dL (8.5-10.1); Chloride 101 mmol/L (98-107); Creatinine, Serum 1.02 mg/dL (0.55-1.02); EST Glomerular Filtration Rate 60 mL/min (>60); Est Glom Filt Rate - Afr Amer 73 mL/min (>60); Estimated Creatinine Clearance 51.03 ml/min; Glucose 119 mg/dL (74-106); Potassium 2.8 mmol/L (3.5-5.1); Sodium Level 135 mmol/L (136-145)
--- NOTE | 2018-02-03 17:28 | ED.DEP ---
ED Disposition - Plan for ED Patient: Disposition: Home or Assisted Living Chief Complaint: Shortness of Breath Instructions: Discharge Instructions for Hypokalemia Prescriptions: Potassium Chloride 20 meq PO DAILY #7 [email or web address].[id number] Referrals: John Sears MD [Primary Care Provider] -
[2018-02-03 17:35] LABS: Differential Comment SCANNED
[2018-02-03 17:45] VITALS: BP 134/68; PULSE 90; RESP 20; O2SAT 100
[2018-02-04 13:03] LABS: Pathologist Review Reviewed
== END 2018-02-03 17:46 | disposition home or self-care (01) ==
PROVIDERS: Emergency Provider Emergency Medicine; Family Provider Family Medicine; PCP Family Medicine
DX: E87.6 Hypokalemia (principal); J96.90 Respiratory failure, unspecified, unspecified whether with hypoxia or hypercapnia; J44.9 Chronic obstructive pulmonary disease, unspecified; D86.9 Sarcoidosis, unspecified; I10 Essential (primary) hypertension; D64.9 Anemia, unspecified; Z99.81 Dependence on supplemental oxygen; Z79.1 Long term (current) use of non-steroidal anti-inflammatories (NSAID); Z79.891 Long term (current) use of opiate analgesic; Z79.52 Long term (current) use of systemic steroids; Z79.899 Other long term (current) drug therapy; Z87.440 Personal history of urinary (tract) infections
CPT/HCPCS: 80048; 85025; 96361; 96374; 99285; J7030; J7040; A4216; J2405

== ENCOUNTER → 2018-02-09 10:17 | Outpatient (CLI) | payer MEDICARE, SELFPAY | PROVIDERS: Family Provider Family Medicine; PCP Family Medicine; Visit Provider Otolaryngology Otolaryngology/Facial Plastic Surgery | DX: J32.9 Chronic sinusitis, unspecified (principal) | CPT/HCPCS: 87070; 87077; 87186; 87205 ==

== ENCOUNTER 2018-02-12 09:44 | Emergency (ER) | payer MEDICARE, SELFPAY ==
[2018-02-12 09:45] VITALS: BP 119/84; PULSE 100; RESP 20; TEMP 36.4; O2SAT 98; BMI 22.2
--- NOTE | 2018-02-12 10:16 | EKG12_ITS ---
Test Reason : SOB Blood Pressure : / mmHG Vent. Rate : 104 BPM Atrial Rate : 104 BPM P-R Int : 166 ms QRS Dur : 084 ms QT Int : 352 ms P-R-T Axes : 073 086 051 degrees QTc Int : 462 ms Sinus tachycardia Right atrial enlargement Borderline ECG Confirmed by NIDIA GONZALES, MARCELINO ([id number]), magazine editor CHOCO RIOS ([id number]) on 02/15/2018 8:39:31 AM Referred By: aKleb Patel Confirmed By:MARCELINO JACOB MD
--- NOTE | 2018-02-12 10:16 | RAD_ITS ---
STUDY: X-RAY CHEST REASON FOR EXAM: Female, 52 years old. Cough and generalized illness. TECHNIQUE: AP and lateral views of the chest. COMPARISON: Comparison is made with prior examination dated January 17, 2018. FINDINGS: EKG collections are seen. Stable appearance of the diffuse bilateral interstitial fibrosis with areas of confluence and honeycombing worse in the right lung. No acute infiltration is seen. Blunting of both costophrenic angles posteriorly. Normal size heart. Normal mediastinum and jordin. Normal visualized pulmonary arteries. Normal visualized aortic arch and descending thoracic aorta. Normal visualized thoracic spine. Normal visualized ribs, clavicles, and shoulders. There is no demonstrated abnormality of the visualized soft tissue structures of the upper abdomen. RAD/Chest PA and Lateral IMPRESSION: Findings incomplete with diffuse bilateral interstitial fibrosis with honeycombing worse in the right lung. No acute infiltrate is seen. Electronically Signed: Fredy Olmos MD at 11:20 EDT Tel [phone], Service support ,
[2018-02-12] MEDS: Ipratropium/Albuterol Sulfate 3 ML AMPUL.NEB INHALATION (10:29)
[2018-02-12 10:30] VITALS: PULSE 106; RESP 20
[2018-02-12] MEDS: Morphine 4 MG/ML Syringe IV ×2 (10:52→13:22)
[2018-02-12] MEDS: 0.9% Normal Saline 1,000 ML 150 ML IV (10:53)
[2018-02-12] MEDS: Ondansetron 4 MG/2 ML Vial IV ×2 (10:53→13:23)
[2018-02-12 11:04] LABS: Bacteria 0 SEEN /hpf (None Seen); Mucous, Urine 0 SEEN /hpf (<or=2+); Red Blood Cells-Urine 0 SEEN /hpf (0-5); White Blood Cells 0 SEEN /hpf (0-5)
[2018-02-12 11:06] LABS: Color, Urine Yellow (Yellow); Glucose, Dipstick Normal (Normal); Ketone-Dipstick Negative (Negative); Leukocyte Esterase-Dipstick Negative /ul (Negative); Nitrite-Dipstick Negative (Negative); Occult Blood-Urine Negative /ul (Negative); Protein-Dipstick Negative (Negative); Urine Bilirubin Dipstick Negative (Negative); Urine Clarity Sl. Cloudy (Clear); Urine Urobilinogen Normal (Normal)
[2018-02-12 11:14] LABS: Squamous Epithelial Cells - UA 0-5 SEEN /hpf (5-10)
[2018-02-12 11:17] LABS: Absolute Lymphocyte Count 3.32 X10^3/ul (0.83-4.51); Absolute Neutrophil Count 6.2 X10^3/uL (2.0-7.7); Basophil# 0.11 X10^3/uL; Basophil% 0.9 % (0-1); Differential Indicated SCAN CRITERIA MET; Eosinophil# 0.46 X10^3/uL; Eosinophils% 3.9 % (0-5); Hematocrit 31.1 % (37-47); Hemoglobin 10.9 g/dl (12.0-15.0); Lymphocyte # 3.32 X10^3/ul (4.0); Lymphocyte % 28.2 % (19-41); Mean Corpuscular Volume 82.7 fL (81-99); Mean Platelet Vol. 8.6 fl (6.2-12.0); Monocyte# 1.56 X10^3/uL; Monocyte% 13.3 % (0-10); Neutrophil # 6.22 X10^3/uL (2.7-7.7); Neutrophil % 52.9 % (47-70); POSITIVE COUNT NO; POSITIVE DIFFERENTIAL YES; POSITIVE MORPHOLOGY NO; Platelet Count 468 K/mm3 (150-450); RBC Distribution Width CV 16.6 % (11.6-14.6); Red Blood Count 3.76 M/mm3 (4.2-5.4); White Blood Count 11.8 K/mm3 (4.4-11.0)
[2018-02-12 11:29] LABS: Anion Gap 8 (5-15); BUN 5 mg/dL (7-18); BUN/Creat Ratio 5.5 RATIO (10-20); Calcium,Total 9.4 mg/dL (8.5-10.1); Chloride 101 mmol/L (98-107); Creatinine, Serum 0.91 mg/dL (0.55-1.02); EST Glomerular Filtration Rate 69 mL/min (>60); Est Glom Filt Rate - Afr Amer 83 mL/min (>60); Glucose 113 mg/dL (74-106); Sodium Level 134 mmol/L (136-145)
[2018-02-12 11:36] LABS: Target Cells RARE
[2018-02-12 12:21] VITALS: PULSE 104; RESP 22; O2SAT 97
--- NOTE | 2018-02-12 12:50 | CT_ITS ---
STUDY: CTA CHEST REASON FOR EXAM: Female, 52 years old. Chest pain. Nausea. RADIATION DOSAGE (If Supplied By Facility): CTDIvol = ( 5.33 ) mGy, DLP = ( 154.57 ) mGycm TECHNIQUE: The examination was performed with the intravenous administration of 75 ml of Isovue 370 contrast material. Post-processing of the angiographic images was performed, with multiplanar reformation and 3D reconstruction. Individualized dose optimization techniques were used for this CT. COMPARISON: Comparison is made with prior study dated September 11, 2017. FINDINGS: Normal enhancement of the main pulmonary artery and right and left pulmonary arteries. Normal enhancement of the bilateral peripheral pulmonary arteries. There is no demonstrated pulmonary embolism. Normal thoracic aorta and visualized great vessels. There is no demonstrated aortic dissection. Normal heart and pericardium. Normal mediastinum. There are bilateral hilar lymph nodes, which are normal in size and morphology. Normal visualized trachea and bronchi. The lungs are well expanded. 1 segment, there is evidence of bronchiectasis and volume loss in the right upper lobe. There is also evidence of bronchiectasis and C6 changes in the posterior aspect of the left upper lobe as well as the right lower lobe and left lower lobes. This also involves the lingular segment of the left upper lobe. Normal pleura. Normal chest wall structures. Normal osseous structures. Normal visualized upper abdomen. CT/CTA Chest W/WO Contrast IMPRESSION: There is no evidence of pulmonary embolism. Stable appearance of the chronic scarring with honeycombing and bronchiectasis in both lungs worse on the right side. Electronically Signed: Fredy Olmos MD at 13:46 EDT Tel [phone], Service support ,
[2018-02-12] MEDS: MethylPREDNISolone 125 MG/2 ML Vial 100 MG IV (12:52)
[2018-02-12 14:00] VITALS: BP 129/90; PULSE 107; RESP 18; O2SAT 95
[2018-02-12] MEDS: Oxymetazoline 0.05% 1 SPRAY SPRAY.BTL NASAL (15:40)
[2018-02-12 16:00] VITALS: BP 133/99; PULSE 109; RESP 30; O2SAT 97
--- NOTE | 2018-02-12 16:31 | ED.VISSUMM ---
- ER Visit Summary Date of Service: 02/12/18 Chief Complaint: Weakness History of Present Illness: The patient is a 52 F with a 2 week history of generalized body aches, and weakness, cough, nausea. She does report having chills but no fever. Patient has a history of hypertension, asthma, COPD, and sarcoidosis. Patient was admitted recently with sepsis secondary to UTI. Physical Examination: Vital signs are unremarkable. Patient sitting upright in bed no acute distress. Head and neck examination is normal. Heart is regular rate and rhythm. Lung sounds with mild expiratory wheezes. Abdomen is soft nontender. Lower external examination was no calf tenderness or edema. Test Results: CBC was a white count 11.8 and hemoglobin 10.9. Chemistry studies reveal sodium of 134. Urinalysis is normal. Troponin is less than 0.015. EKG is sinus at 104 with no sign of acute ischemia. Patient was given DuoNeb, morphine, Zofran, and IV fluids. Chest x-ray reveals bilateral interstitial fibrosis with honeycombing worse in the right lung. No acute infiltrate noted. This is stable compared to prior study. CTA of the chest was then obtained due to continued pain in the right upper chest. This shows chronic changes with no sign of PE or dissection. Emergency Department Course and Treatment: Patient was given additional Solu-Medrol and Afrin nasal spray. Patient does tell me that she recently saw her ENT doctor who did a nasal culture. I was able to pull this up and nasal culture was positive for E. coli and Pseudomonas. I spoke with Dr. Fitch, on-call for Dr. Patel. Patient apparently had Augmentin called in already. We will add Levaquin for Pseudomonas coverage as well. Treatment Plan: [] Disposition: Discharge Impression: 1. Viral syndrome 2. Sinus infection This note was generated with [employer] dictation software. It may contain incorrect words, spelling, and punctuation that were not noted in review of the chart prior to signing ED Disposition - Plan for ED Patient: Chief Complaint: General Illness Referrals: John Sears MD [Primary Care Provider] -
--- NOTE | 2018-02-12 16:34 | ED.DCSUM_ITS ---
- ER Visit Summary Date of Service: 02/12/18 Chief Complaint: Weakness History of Present Illness: The patient is a 52 F with a 2 week history of generalized body aches, and weakness, cough, nausea. She does report having chills but no fever. Patient has a history of hypertension, asthma, COPD, and sarcoidosis. Patient was admitted recently with sepsis secondary to UTI. Physical Examination: Vital signs are unremarkable. Patient sitting upright in bed no acute distress. Head and neck examination is normal. Heart is regular rate and rhythm. Lung sounds with mild expiratory wheezes. Abdomen is soft nontender. Lower external examination was no calf tenderness or edema. Test Results: CBC was a white count 11.8 and hemoglobin 10.9. Chemistry studies reveal sodium of 134. Urinalysis is normal. Troponin is less than 0.015. EKG is sinus at 104 with no sign of acute ischemia. Patient was given DuoNeb, morphine, Zofran, and IV fluids. Chest x-ray reveals bilateral interstitial fibrosis with honeycombing worse in the right lung. No acute infiltrate noted. This is stable compared to prior study. CTA of the chest was then obtained due to continued pain in the right upper chest. This shows chronic changes with no sign of PE or dissection. Emergency Department Course and Treatment: Patient was given additional Solu- Medrol and Afrin nasal spray. Patient does tell me that she recently saw her ENT doctor who did a nasal culture. I was able to pull this up and nasal culture was positive for E. coli and Pseudomonas. I spoke with Dr. Fitch, on- call for Dr. Patel. Patient apparently had Augmentin called in already. We will add Levaquin for Pseudomonas coverage as well. Treatment Plan: [] Disposition: Discharge Impression: 1. Viral syndrome 2. Sinus infection This note was generated with [employer] dictation software. It may contain incorrect words, spelling, and punctuation that were not noted in review of the chart prior to signing ED Disposition - Plan for ED Patient: Chief Complaint: General Illness Referrals: John Sears MD [Primary Care Provider] -
--- NOTE | 2018-02-12 16:34 | ED.DEP ---
ED Disposition - Plan for ED Patient: Disposition: Home or Assisted Living Chief Complaint: General Illness Instructions: ED Viral Syndrome, Acute Sinusitis Prescriptions: Levofloxacin [Levaquin] 750 mg PO DAILY #5 tablet Prednisone [Deltasone] 40 mg PO DAILY #8 tablet Referrals: John Sears MD [Primary Care Provider] - Kaleb Patel MD [STAFF PHYSICIAN] -
[2018-02-12 16:54] VITALS: BP 129/90; PULSE 108; RESP 21; O2SAT 96
--- NOTE | 2018-02-12 16:55 | ED.RN ---
leflumonide 20mg (two 10mg tablets) given per order at 1654. unable to scan, pharmacy notified.
== END 2018-02-12 17:04 | disposition home or self-care (01) ==
PROVIDERS: Emergency Provider Emergency Medicine; Family Provider Family Medicine; PCP Family Medicine
DX: J32.9 Chronic sinusitis, unspecified (principal); B34.9 Viral infection, unspecified; R07.9 Chest pain, unspecified; R10.9 Unspecified abdominal pain; J44.9 Chronic obstructive pulmonary disease, unspecified; I10 Essential (primary) hypertension; D86.9 Sarcoidosis, unspecified; R11.0 Nausea; M79.1 Myalgia; Z79.52 Long term (current) use of systemic steroids; Z79.899 Other long term (current) drug therapy
CPT/HCPCS: 71046; 71275; 80048; 81001; 84484; 85025; 93005; 94640; 96361; 96374; 96375; 96376; 99285; J7030; A4216; J2405

== ENCOUNTER → 2018-03-14 14:17 | Outpatient (CLI) | payer MEDICARE, SELFPAY ==
[2018-03-14 15:10] LABS: Allen Test POS; Base Excess -3 mmol/L (-2 to +2); Bicarbonate 22.7 mmol/L (22-26); Blood Gas Specimen Type ART; O2 Delivery Device Room Air; PO2 67 mmHG (75-100); SITE R Radial; SO2 92 % (95-99); Time Given 1503; Total Carbon Dioxide 24 mmol/L; pCO2 39.9 mmHg (35-45); pH 7.36 (7.35-7.45)
[2018-03-14 15:59] LABS: Absolute Lymphocyte Count 3.22 X10^3/ul (0.83-4.51); Absolute Neutrophil Count 6.6 X10^3/uL (2.0-7.7); Basophil# 0.07 X10^3/uL; Basophil% 0.6 % (0-1); Eosinophils% 5.5 % (0-5); Hematocrit 27.4 % (37-47); Lymphocyte # 3.22 X10^3/ul (4.0); Lymphocyte % 25.5 % (19-41); Mean Corp Hgb Conc 32.8 g/gl (32-36); Mean Corpuscular Hgb 26.7 pg (27.0-32.0); Mean Corpuscular Volume 81.3 fL (81-99); Mean Platelet Vol. 8.5 fl (6.2-12.0); Monocyte# 1.96 X10^3/uL; Monocyte% 15.5 % (0-10); Neutrophil # 6.62 X10^3/uL (2.7-7.7); Neutrophil % 52.3 % (47-70); Platelet Count 525 K/mm3 (150-450); RBC Distribution Width SD 52.8 fl (35.1-43.9); Red Blood Count 3.37 M/mm3 (4.2-5.4); White Blood Count 12.6 K/mm3 (4.4-11.0)
[2018-03-14 16:04] LABS: Differential Indicated SCAN CRITERIA MET; POSITIVE COUNT NO; POSITIVE DIFFERENTIAL YES; POSITIVE MORPHOLOGY NO
[2018-03-14 16:26] LABS: ALB/GLOB Ratio 0.6 RATIO (0.9-2.4); AST(SGOT) 19 U/L (15-37); Alanine Aminotransfer ALT/SGPT 12 U/L (13-56); Albumin, Serum 2.7 g/dL (3.2-5.0); Alkaline Phosphatase 126 U/L (45-117); Anion Gap 7 (5-15); BUN 8 mg/dL (7-18); BUN/Creat Ratio 7.8 RATIO (10-20); Calcium,Total 8.9 mg/dL (8.5-10.1); Chloride 106 mmol/L (98-107); Creatinine, Serum 1.02 mg/dL (0.55-1.02); EST Glomerular Filtration Rate 60 mL/min (>60); Est Glom Filt Rate - Afr Amer 73 mL/min (>60); Globulin 4.9 g/dL (2.2-4.2); Glucose 83 mg/dL (74-106); Potassium 4.5 mmol/L (3.5-5.1); Protein, Total 7.6 g/dL (6.4-8.2); Sodium Level 139 mmol/L (136-145); T4 Total, Thyroxin 9.6 ug/dL (4.8-13.9); Thyroid Stim Hormone (TSH) 1.06 uIU/mL (0.358-3.74)
[2018-03-14 16:42] LABS: Platelet Estimate MOD INC (ADEQ)
[2018-03-14 16:43] LABS: Red Cell Morphology NORM C+C NORMAL (NORM C&C)
[2018-03-15 09:34] LABS: Pathologist Review Reviewed
[2018-03-19 08:31] LABS: Procalcitonin 0.04 ng/mL (0.00-0.08)
[2018-03-19 08:43] LABS: Angiotensin Convert Enzyme 63 U/L (14-82)
== END ==
PROVIDERS: Family Provider Family Medicine; PCP Family Medicine; Visit Provider Family Medicine
DX: D86.0 Sarcoidosis of lung (principal); D86.89 Sarcoidosis of other sites; E03.9 Hypothyroidism, unspecified
CPT/HCPCS: 36415; 36600; 80053; 82164; 82803; 84145; 84436; 84443; 85025; 86140

== ENCOUNTER → 2018-03-19 14:23 | Outpatient (CLI) | payer MEDICARE, SELFPAY ==
[2018-03-19 15:38] LABS: Bacteria 0 SEEN /hpf (None Seen); Mucous, Urine 0 SEEN /hpf (<or=2+); Red Blood Cells-Urine 0 SEEN /hpf (0-5); White Blood Cells 0 SEEN /hpf (0-5)
[2018-03-19 16:25] LABS: Color, Urine Yellow (Yellow); Glucose, Dipstick Normal (Normal); Ketone-Dipstick Negative (Negative); Leukocyte Esterase-Dipstick Negative /ul (Negative); Nitrite-Dipstick Negative (Negative); Occult Blood-Urine Negative /ul (Negative); Protein-Dipstick Negative (Negative); Urine Bilirubin Dipstick Negative (Negative); Urine Clarity Clear (Clear); Urine Urobilinogen Normal (Normal)
[2018-03-19 16:56] LABS: Squamous Epithelial Cells - UA 0-5 SEEN /hpf (5-10)
== END ==
PROVIDERS: Family Provider Family Medicine; PCP Family Medicine; Visit Provider Family Medicine
DX: N30.90 Cystitis, unspecified without hematuria (principal); J32.9 Chronic sinusitis, unspecified
CPT/HCPCS: 81001; 87070; 87077; 87086; 87088; 87186; 87205

== ENCOUNTER → 2018-05-29 11:43 | Outpatient (CLI) | payer MEDICARE, SELFPAY ==
--- NOTE | 2018-05-29 12:47 | RAD_ITS ---
STUDY: X-RAY - LEFT SHOULDER REASON FOR EXAM: Female, 52 years old. Increasing left shoulder pain with tingling in the hands TECHNIQUE: 3 view(s) of the shoulder. COMPARISON: None. FINDINGS: Normal glenohumeral articulation. Normal acromioclavicular joint. Normal acromion. Normal humeral head and visualized proximal humerus. The soft tissue structures are unremarkable. Normal visualized pulmonary apex. RAD/Shoulder min 2 Views IMPRESSION: Normal x-ray examination of the shoulder. Electronically Signed: Steven Martinez MD at 8:13 EDT , Service support ,
[2018-05-29 14:17] LABS: Erythrocyte Sedimentation Rate 63 mm/hr (0-30)
[2018-05-29 14:20] LABS: Absolute Lymphocyte Count 4.31 X10^3/ul (0.83-4.51); Absolute Neutrophil Count 6.6 X10^3/uL (2.0-7.7); Basophil# 0.13 X10^3/uL; Basophil% 0.9 % (0-1); Differential Indicated SCAN CRITERIA MET; Eosinophil# 0.81 X10^3/uL; Eosinophils% 5.7 % (0-5); Hematocrit 28.9 % (37-47); Hemoglobin 9.8 g/dl (12.0-15.0); Lymphocyte # 4.31 X10^3/ul (4.0); Lymphocyte % 30.5 % (19-41); Mean Corp Hgb Conc 33.9 g/gl (32-36); Mean Corpuscular Hgb 27.9 pg (27.0-32.0); Mean Corpuscular Volume 82.3 fL (81-99); Mean Platelet Vol. 9.4 fl (6.2-12.0); Monocyte# 2.25 X10^3/uL; Monocyte% 15.9 % (0-10); Neutrophil # 6.59 X10^3/uL (2.7-7.7); Neutrophil % 46.9 % (47-70); POSITIVE COUNT NO; POSITIVE DIFFERENTIAL YES; POSITIVE MORPHOLOGY YES; Platelet Count 390 K/mm3 (150-450); RBC Distribution Width CV 16.3 % (11.6-14.6); RBC Distribution Width SD 48.2 fl (35.1-43.9); Red Blood Count 3.51 M/mm3 (4.2-5.4); White Blood Count 14.1 K/mm3 (4.4-11.0)
[2018-05-29 14:25] LABS: ALB/GLOB Ratio 0.7 RATIO (0.9-2.4); AST(SGOT) 19 U/L (15-37); Alanine Aminotransfer ALT/SGPT 18 U/L (13-56); Albumin, Serum 3.4 g/dL (3.2-5.0); Alkaline Phosphatase 149 U/L (45-117); Anion Gap 10 (5-15); BUN 13 mg/dL (7-18); BUN/Creat Ratio 10.7 RATIO (10-20); Calcium,Total 8.9 mg/dL (8.5-10.1); Chloride 103 mmol/L (98-107); Creatinine, Serum 1.21 mg/dL (0.55-1.02); EST Glomerular Filtration Rate 50 mL/min (>60); Est Glom Filt Rate - Afr Amer 60 mL/min (>60); Glucose 131 mg/dL (74-106); Potassium 3.5 mmol/L (3.5-5.1); Protein, Total 8.4 g/dL (6.4-8.2); Sodium Level 138 mmol/L (136-145)
[2018-05-31 11:11] LABS: Pathologist Review Reviewed
== END ==
PROVIDERS: Family Provider Family Medicine; PCP Family Medicine; Referring Provider Family Medicine; Visit Provider Family Medicine
DX: M25.512 Pain in left shoulder (principal); G89.29 Other chronic pain; D86.0 Sarcoidosis of lung
CPT/HCPCS: 36415; 73030; 80053; 85025; 85652

== ENCOUNTER → 2018-06-07 06:36 | Outpatient (CLI) | payer MEDICARE, SELFPAY ==
--- NOTE | 2018-06-07 06:40 | CT_ITS ---
STUDY: CT CHEST WITHOUT CONTRAST REASON FOR EXAM: Female, 52 years old. BRONCHIECTASIS W/OUT COMPLICATION SARCOIDOSIS RADIATION DOSAGE (If Supplied By Facility): CTDIvol = ( 8.41 ) mGy, DLP = ( 285.94 ) mGycm TECHNIQUE: Transaxial imaging was performed without the administration of intravenous contrast material. # of Images: 744 Individualized dose optimization techniques were used for this CT. COMPARISON: None. FINDINGS: There are interstitial fibrotic changes of the lungs with honeycombing more prominent in right upper lobe, right middle lobe and right lower lobe and in the lingula and left lower lobe cavity consistent with sarcoidosis. There is associated traction bronchiectasis in the areas of fibrosis. There is no demonstrated pleural abnormality. Normal heart and pericardium. Normal mediastinum. Normal hilar regions. Normal unenhanced pulmonary arteries. Normal aorta arch and descending thoracic aorta. Old nondisplaced fractures of the right fifth and sixth ribs. There is no demonstrated abnormality of the visualized upper abdomen. CT/Chest without Contrast IMPRESSION: There are interstitial fibrotic changes of the lungs with honeycombing more prominent in right upper lobe, right middle lobe and right lower lobe and in the lingula and left lower lobe cavity consistent with sarcoidosis. There is associated traction bronchiectasis in the areas of fibrosis. Electronically Signed: Rosa Ortiz MD at 10:00 EDT Tel , Service support ,
== END ==
PROVIDERS: Family Provider Family Medicine; PCP Family Medicine; Referring Provider Family Medicine; Visit Provider Family Medicine
DX: J47.9 Bronchiectasis, uncomplicated (principal)
CPT/HCPCS: 71250

== ENCOUNTER 2018-06-07 07:16 | Emergency (ER) | payer MEDICARE, SELFPAY ==
[2018-06-07 07:18] VITALS: BP 154/105; PULSE 100; RESP 28; TEMP 36.6; O2SAT 96; BMI 24.7
[2018-06-07 07:25] VITALS: BP 161/116; PULSE 99; RESP 22; O2SAT 94
[2018-06-07 07:26] VITALS: O2SAT 94
--- NOTE | 2018-06-07 07:32 | EKG12_ITS ---
Test Reason : Blood Pressure : / mmHG Vent. Rate : 095 BPM Atrial Rate : 095 BPM P-R Int : 208 ms QRS Dur : 084 ms QT Int : 388 ms P-R-T Axes : 073 085 049 degrees QTc Int : 487 ms Normal sinus rhythm Right atrial enlargement Prolonged QT Abnormal ECG Confirmed by PATRICIA GONZALES, MARGARET ([id number]), editor managing newspaper [employer] ([id number]) on 06/10/2018 12:50:39 PM Referred By: John Sears Confirmed By:MARGARET GOMEZ MD
--- NOTE | 2018-06-07 08:54 | ED.VISSUMM ---
- ER Visit Summary Date of Service: 06/07/18 Chief Complaint: Right-sided chest pain and left-sided neck pain with radiation to the wrist History of Present Illness: The patient is a 52 F who presents with right-sided chest pain for 1 week. She had an outpatient CT of the chest without contrast. She also complains of left-sided neck pain that radiates in the distribution of C6-7 dermatome. She denies burning pain or numbness. She does report pain and intermittent tingling. She denies weakness. She denies fever, chills night sweats. Denies weight gain or weight loss. She denies any ocular, visual or auditory symptoms. She does have a cough which is nonproductive. The cough is chronic and secondary to sarcoidosis according to the patient. She denies leg pain, swelling discoloration. There is no history of VT E. Furthermore, there is no risk factors. She denies abdominal pain, food intolerance, nausea, vomiting or diarrhea. She denies dysuria, frequency, urgency or hematuria. She denies myalgias or arthralgias. Denies swelling of any of her joints. Physical Examination: Vital signs noted and blood pressure is elevated 161/116. Head is atraumatic normocephalic. Pupils are equal round reactive. Extraocular muscles are intact. TMs are pearly white with landmarks noted. Nares patent with no drainage. Posterior pharynx without erythema or exudate. Uvula is midline. There is no dysphonia or dysphasia. Trachea is midline. There is no stridor with auscultation of the neck. Patient is edentulous. Heart is regular without murmur, gallop or rub. Lungs reveal question of adventitial breath sounds bilaterally. There is no rales, rhonchi or wheezing noted. Expiratory phase is not prolonged. Abdomen is soft nontender. Bowel sounds are present normal. There is no palpable pulsatile mass. There is no abdominal bruit. There is no asymmetry, swelling, discoloration, leg vein distention, palpable cords or tenderness along the distribution of the deep venous system. Neuro exam is remarkable for diminished biceps, brachial radialis and triceps reflex on the left. Motor is 5/5. Sensation is intact. Per review of old records she recently had a x-ray of her shoulder which was negative. Test Results: There are interstitial fibrotic changes of the lungs with honeycombing more prominent in right upper lobe, right middle lobe and right lower lobe and in the lingula and left lower lobe cavity consistent with sarcoidosis. There is associated traction bronchiectasis in the areas of fibrosis. There is no demonstrated pleural abnormality. EKG was obtained. The EKG reveals a sinus mechanism with rate of 95. MA interval is slightly prolonged at 208 ms and consistent with first-degree AV block. QRS duration normal. QT interval is prolonged. There is evidence of motion artifact. White count is elevated. She is presently on Augmentin to treat her bronchiectasis. Emergency Department Course and Treatment: Patient was informed in my professional medical opinion her neck pain and left upper extremity pain is secondary to a disc. Recommended follow-up with Dr. John Sears. If no improvement after physical therapy MRI would be indicated since deep tendon reflexes on the left are slightly diminished compared to the right. Treatment Plan: Oral analgesia and follow-up with PCP, Dr. John Sears Disposition: Discharged to home Impression: 1. Cervical 5&6 radiculopathy left 2. Noncardiac right-sided chest pain 3. Sarcoidosis/bronchiectasis This note was generated with [employer] dictation software. It may contain incorrect words, spelling, and punctuation that were not noted in review of the chart prior to signing ED Disposition - Plan for ED Patient: Disposition: Home or Assisted Living Chief Complaint: Shortness of Breath Instructions: ED Cervical Radiculopathy, Discharge Instructions for Bronchiectasis, Pulmonary Sarcoidosis Prescriptions: Oxycodone HCl/Acetaminophen [Percocet 5/325] 1 tablet PO Q6H PRN PRN 5 Days #20 tablet PRN Reason: Pain Referrals: John Sears MD [Primary Care Provider] - 3-5 Days Additional Instructions: Your prescription was electronically transmitted to [facility].
[2018-06-07 09:01] VITALS: PULSE 99; RESP 20
[2018-06-07 09:11] LABS: Hematocrit 32.6 % (37-47); Hemoglobin 10.8 g/dl (12.0-15.0); Mean Corp Hgb Conc 33.1 g/gl (32-36); Mean Corpuscular Hgb 27.4 pg (27.0-32.0); Mean Corpuscular Volume 82.7 fL (81-99); Mean Platelet Vol. 8.3 fl (6.2-12.0); Platelet Count 408 K/mm3 (150-450); RBC Distribution Width CV 15.9 % (11.6-14.6); RBC Distribution Width SD 48.3 fl (35.1-43.9); Red Blood Count 3.94 M/mm3 (4.2-5.4); White Blood Count 13.6 K/mm3 (4.4-11.0)
[2018-06-07 09:15] LABS: Scan Indicated on CBC? Y/N NO
[2018-06-07] MEDS: HYDROcodone Bitartrate/Apap 5/325 Tablet PO (09:15)
[2018-06-07] MEDS: Naproxen 250 MG Tablet 500 MG PO (09:15)
[2018-06-07 09:39] LABS: Lactic Acid 1.6 mmol/L (0.4-2.0)
[2018-06-07 10:00] VITALS: BP 163/110; PULSE 99; RESP 28; O2SAT 94
[2018-06-07] MEDS: Ondansetron ODT 4 MG Tablet PO (10:02)
[2018-06-07 10:39] VITALS: BP 163/110; PULSE 111; RESP 22
== END 2018-06-07 10:40 | disposition home or self-care (01) ==
PROVIDERS: Emergency Provider Emergency Medicine; Family Provider Family Medicine; PCP Family Medicine
DX: M54.12 Radiculopathy, cervical region (principal); R07.89 Other chest pain; D86.9 Sarcoidosis, unspecified; J47.9 Bronchiectasis, uncomplicated; I44.0 Atrioventricular block, first degree; I10 Essential (primary) hypertension; Z79.899 Other long term (current) drug therapy; Z87.891 Personal history of nicotine dependence
CPT/HCPCS: 36415; 71250; 83605; 85027; 93005; 99284; A4216; J2405

== ENCOUNTER 2018-07-03 03:04 | Emergency (ER) | payer MEDICARE, SELFPAY ==
[2018-07-03 03:05] VITALS: BP 186/102; PULSE 111; RESP 18; TEMP 36.8; O2SAT 94; BMI 27.8
[2018-07-03 03:16] VITALS: BP 184/101; PULSE 106; RESP 19; O2SAT 97
[2018-07-03] MEDS: cloNIDine HCl 0.2 MG Tablet PO (03:40)
--- NOTE | 2018-07-03 04:03 | ED.VISSUMM ---
- ER Visit Summary Date of Service: 07/03/18 Chief Complaint: Elevated blood pressure History of Present Illness: The patient is a 52 F who presents with elevated blood pressure. She states she got up at about midnight and had a headache which she often has when her blood pressure is high. Therefore she checked her blood pressure and it was significantly elevated at home. She did take extra losartan. She has been out of her clonidine for a couple of days. She also complains of some recent cough but denies chest pain trouble breathing fevers vomiting diarrhea. Currently her headache has resolved. She is currently asymptomatic. Physical Examination: Afebrile blood pressure 186/102, heart rate 111, vitals otherwise normal Moist mucous membranes Heart regular rhythm slightly tachycardic Lungs are clear Abdomen soft Alert and oriented with no focal or lateralizing neurological deficits Test Results: Not indicated Emergency Department Course and Treatment: Patient presents with asymptomatic elevated blood pressure. Although she did have a headache earlier she states this is not resolved. She has been out of her clonidine for a couple of days. I believe this is rebound hypertension. She was given clonidine here with improvement of her blood pressure. I did provide a refill prescription. I advised that she contact her primary care physician this morning. Patient discharged. Treatment Plan: [] Disposition: Discharge Impression: Uncontrolled hypertension Medication noncompliance This note was generated with [employer] dictation software. It may contain incorrect words, spelling, and punctuation that were not noted in review of the chart prior to signing ED Disposition - Plan for ED Patient: Chief Complaint: Hypertension Referrals: John Sears MD [Primary Care Provider] -
--- NOTE | 2018-07-03 04:05 | ED.DEP ---
ED Disposition - Plan for ED Patient: Chief Complaint: Hypertension Prescriptions: Clonidine HCl 0.2 mg PO QHS #10 tab Referrals: John Sears MD [Primary Care Provider] -
--- NOTE | 2018-07-03 04:07 | ED.DEP ---
ED Disposition - Plan for ED Patient: Chief Complaint: Hypertension Instructions: ED Hypertension Conf Out Of Control Prescriptions: Clonidine HCl 0.2 mg PO QHS #10 tab Referrals: John Sears MD [Primary Care Provider] -
[2018-07-03 04:09] VITALS: BP 178/105; PULSE 105; RESP 15; O2SAT 96
== END 2018-07-03 04:11 | disposition home or self-care (01) ==
LOC: ED 03:38
PROVIDERS: Emergency Provider Emergency Medicine; Family Provider Family Medicine; PCP Family Medicine
DX: I10 Essential (primary) hypertension (principal); Z91.14 Patient's other noncompliance with medication regimen; R00.0 Tachycardia, unspecified; R05 Cough; Z79.899 Other long term (current) drug therapy; M54.12 Radiculopathy, cervical region
CPT/HCPCS: 72156; 99284; A9585; J7030

== ENCOUNTER → 2018-07-03 16:44 | Outpatient (CLI) | payer MEDICARE, SELFPAY ==
--- NOTE | 2018-07-03 16:48 | MRI_ITS ---
STUDY: MRI CERVICAL SPINE WITH AND WITHOUT CONTRAST REASON FOR EXAM: Female, 52 years old. Neck and left shoulder pain TECHNIQUE: Standardized fat and water weighted pulse sequences were obtained in the sagittal and axial following I.V. administration of 6 ml of Gadavist contrast material. COMPARISON: None FINDINGS: Normal foramen magnum and brainstem-cervical cord junction. Normal craniovertebral junction. Normal anterior atlantoaxial articulation. Normal odontoid process. Decreased cervical lordosis. Normal vertebral bodies and posterior osseous elements. C2-3: Normal endplates. Normal disc height, signal and small central disc protrusion. Normal central canal and intervertebral neural foramina. C3-4: Grade 1 retrolisthesis. Mild bulging disc osteophyte complex. Mild narrowing of the central canal. Severe bilateral neuroforaminal stenosis C4-5: Grade 1 spondylolisthesis. Mild bulging of the disc with moderate size left paracentral disc protrusion narrowing the spinal canal and compressing the cord. Moderate bilateral neuroforaminal stenosis secondary to disc and bony hypertrophy C5-6: Normal endplates. Normal disc height, signal and tiny central disc protrusion.. Normal central canal and intervertebral neural foramina. C6-7: Normal endplates. Normal disc height, signal and tiny central disc protrusion.. Normal central canal and intervertebral neural foramina. C7-T1: Normal endplates. Normal disc height, signal and morphology. Normal central canal and intervertebral neural foramina. Normal cervical cord. No abnormal enhancement following contrast injection Normal visualized soft tissue structures. MRI/Spine Cervical W/WO Contrast IMPRESSION: Moderate spondylosis Spinal stenosis at C3-4 and C4-5 secondary to disc disease and bony hypertrophy. Findings as above Electronically Signed: Jovi Wilkinson MD at 23:49 EST , Service support ,
== END ==
PROVIDERS: Family Provider Family Medicine; PCP Family Medicine; Referring Provider Family Medicine; Visit Provider Family Medicine
DX: M54.12 Radiculopathy, cervical region (principal)
CPT/HCPCS: 72156; A9585

== ENCOUNTER → 2018-07-29 16:45 | Outpatient (CLI) | payer MEDICARE, SELFPAY ==
--- NOTE | 2018-07-29 16:47 | CT_ITS ---
STUDY: CT MAXILLOFACIAL SINUSES REASON FOR EXAM: Female, 52 years old. Chronic sinusitis. RADIATION DOSAGE (If Supplied By Facility): CTDIvol = ( 29.30 ) mGy, DLP = ( 415.23 ) mGycm TECHNIQUE: The patient was scanned in a multi detector CT scanner. High resolution axial imaging was performed without the administration of intravenous contrast material. Sagittal and coronal images were reconstructed. Individualized dose optimization techniques were used for this CT. 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 MAXILLARY SINUSES: There is minimal opacification of the maxillary sinuses. The maxillary sinus ostia are patent. SPHENOIDAL SINUSES: Normal aeration, without mucosal inflammatory disease. Normal bilateral middle turbinates. Normal bilateral inferior turbinates. Normal midline nasal septum. There is patency of the bilateral nasal airways. The visualized osseous structures are normal. The visualized bilateral orbital contents are normal. There is trace opacification of the right mastoid air cells. CT/Sinus/Facial Bone IMPRESSION: Minimal opacification of the maxillary sinuses consistent with a history of sinusitis. Trace fluid within the right mastoid air cells suggestive of a history of mastoiditis. Electronically Signed: Cintia Mckeon MD at 17:39 EST Tel , Service support ,
--- OUTSIDE RECORDS SUMMARY | 2018-09-15 01:52 | XMS RPT_ITS ---
:1965 Author Organization OHIP Support Name Relationship Address Phone D Unavailable Unavailable Unavailable RAY, OLIVER Unavailable [address] + [place] [address] D Unavailable Unavailable Unavailable RAY, OLIVER Unavailable [address] + [place] [address] D Unavailable Unavailable Unavailable RAY, OLIVER Unavailable [address] + [place] [address] D Unavailable Unavailable Unavailable RAY, OLIVER Unavailable [address] + [place] [address] D Unavailable Unavailable Unavailable RAY, OLIVER Unavailable [address] + [place] [address] D Unavailable Unavailable Unavailable RAY, OLIVER Unavailable [address] + [place] [address] D Unavailable Unavailable Unavailable RAY, OLIVER Unavailable [address] + [place] [address] D Unavailable Unavailable Unavailable RAY, OLIVER Unavailable [address] + [place] [address] D Unavailable Unavailable Unavailable RAY, OLIVER Unavailable [address] + [place] [address] D Unavailable Unavailable Unavailable RAY, OLIVER Unavailable [address] + [place] [address] D Unavailable Unavailable Unavailable RAY, OLIVER Unavailable [address] + [place] [address] D Unavailable Unavailable Unavailable RAY, OLIVER Unavailable [address] + [place] [address] D Unavailable Unavailable Unavailable RAY, OLIVER Unavailable [address] + [place] [address] D Unavailable Unavailable Unavailable RAY, OLIVER Unavailable [address] + [place] [address] D Unavailable Unavailable Unavailable RAY, OLIVER Unavailable [address] + [place] [address] D Unavailable Unavailable Unavailable RAY, OLIVER Unavailable [address] + [place] [address] D Unavailable Unavailable Unavailable RAY, OLIVER Unavailable [address] + [place] [address] D Unavailable Unavailable Unavailable RAY, OLIVER Unavailable [address] + [place] [address] D Unavailable Unavailable Unavailable RAY, OLIVER Unavailable [address] + [place] [address] D Unavailable Unavailable Unavailable D Unavailable Unavailable Unavailable RAY, OLIVER Unavailable [address] + [place] [address] D Unavailable Unavailable Unavailable RAY, OLIVER Unavailable [address] + [place] [address] WHITEHEAD, JELNAR Unavailable [address] + [place] [address] D Unavailable Unavailable Unavailable RAY, OLIVER Unavailable [address] + [place] [address] WHITEHEAD, JELNAR Unavailable [address] + [place] [address] D Unavailable Unavailable Unavailable RAY, OLIVER Unavailable [address] + [place] [address] WHITEHEAD, JELNAR Unavailable [address] + [place] [address] Care Team Providers Name Role Phone PAULINO HARLEY (FAITH) Attending Unavailable PAULINO HARLEY (FAITH) Referring Unavailable Sears, John Primary Care Unavailable Elsa Sue Attending Unavailable Ivonne Sunshine Attending Unavailable Sears, John Primary Care Unavailable Silverio Desouza Attending Unavailable Sears, John Primary Care Unavailable SHAKA MCCARTHY Attending Unavailable Sears, John Primary Care Unavailable Ashelfah, Ghasem Admitting Unavailable Jopperi, John Attending Unavailable Hutchison, Zach Consulting Unavailable Ashelfah, Ghasem Admitting Unavailable Sears, John Primary Care Unavailable Ashelfah, Ghasem Consulting Unavailable Ashelfah, Ghasem Attending Unavailable Ashelfah, Ghasem Admitting Unavailable Sears, John Primary Care Unavailable Jopperi, John Consulting Unavailable Jopperi, John Attending Unavailable Jopperi, John Attending Unavailable Ashelfah, Ghasem Admitting Unavailable Sears, John Primary Care Unavailable Hutchison, Zach Consulting Unavailable Jopperi, John Consulting Unavailable Schwiger, John Attending Unavailable Schwiger, John Referring Unavailable Sears, John Primary Care Unavailable Sears, John Attending Unavailable Sears, John Primary Care Unavailable Sears, John Primary Care Unavailable Edgar Navarrete Attending Unavailable Kaleb Patel Attending Unavailable Jorge, Kaleb Referring Unavailable Sears, John Primary Care Unavailable Sears, John Primary Care Unavailable Felicity Kothari Attending Unavailable Mariano Joseph Attending Unavailable Sears, John Attending Unavailable Sears, John Referring Unavailable Sears, John Primary Care Unavailable Sears, John Attending Unavailable Sears, John Referring Unavailable Sears, John Primary Care Unavailable Sears, John Attending Unavailable Sears, John Primary Care Unavailable Robin, Richie Attending Unavailable Kelly, Richie Referring Unavailable Sears, John Primary Care Unavailable JERRI IRBY Consulting Unavailable Sears, John Attending Unavailable Sears, John Referring Unavailable Sears, John Primary Care Unavailable Sears, John Primary Care Unavailable Silverio Desouza Attending Unavailable Sears, John Primary Care Unavailable Tom Thomas Attending Unavailable Sears, John Attending Unavailable Sears, John Referring Unavailable Sears, John Primary Care Unavailable Sears, John Attending Unavailable Sears, John Referring Unavailable Sears, John Primary Care Unavailable PROBLEMS PROBLEMS DATE TYPE CONDITION / CODE ATTENDING STATUS SOURCE 07/03/2018 Unknown M54.12 - John Sears Active [facility] Radiculopathy, [facility] cervical region / Hospital M54.12(ICD-10) Repository 05/29/2018 Unknown D86.0 - Richie Kelly Active [facility] Sarcoidosis of Community lung / Hospital D86.0(ICD-10) Repository 05/29/2018 Unknown 135 - Sarcoidosis Richie Kelly Active [facility] / 135(ICD-9) [facility] Repository 05/29/2018 Unknown M25.512 - Pain in Richie Kelly Active [facility] left shoulder / Community M25.512(ICD-10) Hospital Repository 02/08/2006 Active Sarcoidosis, NA Active [facility] unspecified / [facility] [place] D86.9(ICD-10) Repository 03/28/2018 Active Cough / NA Active [facility] R05(ICD-10) [facility] [place] Repository 03/28/2018 Active Chronic NA Active [facility] sinusitis, [facility] [place] unspecified / Repository J32.9(ICD-10) 03/28/2018 Active Encounter for NA Active [facility] general adult [facility] [place] medical Repository examination without abnormal findings / Z00.00(ICD-10) 03/19/2018 Unknown N30.90 - John Sears Active [facility] Cystitis, [facility] unspecified Hospital without hematuria Repository / N30.90(ICD-10) 03/19/2018 Unknown J32.9 - Chronic Sears, John Active [facility] sinusitis, Community unspecified / Hospital J32.9(ICD-10) Repository 02/15/2018 Unknown R10.9 - Schwjennifer, John Active [facility] Unspecified Community abdominal pain / Hospital R10.9(ICD-10) Repository 02/25/2018 Unknown R06.02 - Mariano Joseph Active [place] Shortness of [facility] breath / Hospital R06.02(ICD-10) Repository PROCEDURES PROCEDURES No Procedure Records FoundRESULTS RESULTS SINUS/FACIAL BONE Observed: 07/29/2018 Status: F Source: [place] 4:47 PM [facility] HOSPITAL REPOSITORY [facility] Imaging Services [address] [place] [address] Sinus/Facial Bone MR#: [id number] Acct: [id number] Name: EMELIA LAI Rep #: [id number] : 1965 F 52 From: Cintia Mckeon MD PCP: John Sears MD Status: REG CLI Study: Sinus/Facial Bone Date of Exam: 07/29/18 Exam# [id number] Ordering Dr: John Sears MD STUDY: CT MAXILLOFACIAL SINUSES REASON FOR EXAM: Female, 52 years old. Chronic sinusitis. RADIATION DOSAGE (If Supplied By Facility): CTDIvol = ( 29.30 ) mGy, DLP = ( 415.23 ) mGycm TECHNIQUE: The patient was scanned in a multi detector CT scanner. High resolution axial imaging was performed without the administration of intravenous contrast material. Sagittal and coronal images were reconstructed. Individualized dose optimization techniques were used for this CT. 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 MAXILLARY SINUSES: There is minimal opacification of the maxillary sinuses. The maxillary sinus ostia are patent. SPHENOIDAL SINUSES: Normal aeration, without mucosal inflammatory disease. Normal bilateral middle turbinates. Normal bilateral inferior turbinates. Normal midline nasal septum. There is patency of the bilateral nasal airways. The visualized osseous structures are normal. The visualized bilateral orbital contents are normal. There is trace opacification of the right mastoid air cells. CT/Sinus/Facial Bone IMPRESSION: Minimal opacification of the maxillary sinuses consistent with a history of sinusitis. Trace fluid within the right mastoid air cells suggestive of a history of mastoiditis. Electronically Signed: Cintia Mckeon MD at 17:39 EST Tel , Service support , CC: John Sears MD Obiee Architect: Signed SPINE CERVICAL W/WO Observed: 07/03/2018 Status: F Source: [place] CONTRAST 4:49 PM [facility] REPOSITORY [facility] Imaging Services [address] [place] [address] Spine Cervical W/WO Contrast MR#: [id number] Acct: [id number] Name: EMELIA LAI Rep #: [id number] : 1965 F 52 From: Jovi Wilkinson MD PCP: John Sears MD Status: REG CLI Study: Spine Cervical W/WO Contrast Date of Exam: 07/03/18 Exam# [id number] Ordering Dr: John Sears MD STUDY: MRI CERVICAL SPINE WITH AND WITHOUT CONTRAST REASON FOR EXAM: Female, 52 years old. Neck and left shoulder pain TECHNIQUE: Standardized fat and water weighted pulse sequences were obtained in the sagittal and axial following I.V. administration of 6 ml of Gadavist contrast material. COMPARISON: None FINDINGS: Normal foramen magnum and brainstem-cervical cord junction. Normal craniovertebral junction. Normal anterior atlantoaxial articulation. Normal odontoid process. Decreased cervical lordosis. Normal vertebral bodies and posterior osseous elements. C2-3: Normal endplates. Normal disc height, signal and small central disc protrusion. Normal central canal and intervertebral neural foramina. C3-4: Grade 1 retrolisthesis. Mild bulging disc osteophyte complex. Mild narrowing of the central canal. Severe bilateral neuroforaminal stenosis C4-5: Grade 1 spondylolisthesis. Mild bulging of the disc with moderate size left paracentral disc protrusion narrowing the spinal canal and compressing the cord. Moderate bilateral neuroforaminal stenosis secondary to disc and bony hypertrophy C5-6: Normal endplates. Normal disc height, signal and tiny central disc protrusion.. Normal central canal and intervertebral neural foramina. C6-7: Normal endplates. Normal disc height, signal and tiny central disc protrusion.. Normal central canal and intervertebral neural foramina. C7-T1: Normal endplates. Normal disc height, signal and morphology. Normal central canal and intervertebral neural foramina. Normal cervical cord. No abnormal enhancement following contrast injection Normal visualized soft tissue structures. MRI/Spine Cervical W/WO Contrast IMPRESSION: Moderate spondylosis Spinal stenosis at C3-4 and C4-5 secondary to disc disease and bony hypertrophy. Findings as above Electronically Signed: Jovi Wilkinson MD at 23:49 EST , Service support , CC: John Sears MD Obiee Architect: Signed DISCHARGE INSTRUCTION Observed: 07/03/2018 Status: F Source: [place] 4:07 AM [facility] Medical Records Department [address] [place] [address] Discharge Instruction 07/03/18406 MR#: [id number] Acct: [id number] Name: EMELIA LAI Rep #: [id number] : 1965 52 From: Tom Thomas MD PCP: John Sears MD Status: REG ER ED Disposition - Plan for ED Patient: Chief Complaint: Hypertension Instructions: ED Hypertension Conf Out Of Control Prescriptions: Clonidine HCl 0.2 mg PO QHS #10 tab Referrals: John Sears MD [Primary Care Provider] - What to do if you have Problems For any increased pain, shortness of breath, bleeding, nausea or vomiting, chest pain, or any unexpected problems, contact your Primary Care Provider. Call [facility] ([phone]) or report to the closest Emergency Room. Call 911 if necessary. 07/03/18406 <Electronically signed by Tom Thomas MD> Date Tom Thomas MD Cosigner Signature (If Indicated): Date CC: John Sears MD DISCHARGE INSTRUCTION Observed: 07/03/2018 Status: F Source: [place] 4:06 AM [facility] Medical Records Department [address] [place] [address] Discharge Instruction 07/03/18404 MR#: [id number] Acct: [id number] Name: EMELIA LAI Rep #: [id number] : 1965 52 From: Tom Thomas MD PCP: John Sears MD Status: REG ER ED Disposition - Plan for ED Patient: Chief Complaint: Hypertension Prescriptions: Clonidine HCl 0.2 mg PO QHS #10 tab Referrals: John Sears MD [Primary Care Provider] - What to do if you have Problems For any increased pain, shortness of breath, bleeding, nausea or vomiting, chest pain, or any unexpected problems, contact your Primary Care Provider. Call [facility] ([phone]) or report to the closest Emergency Room. Call 911 if necessary. 07/03/18 0406 <Electronically signed by Tom Thomas MD> Date Tom Thomas MD Cosigner Signature (If Indicated): Date CC: John Sears MD EMERGENCY DEPARTMENT Observed: 07/03/2018 Status: F Source: [place] SUMMARY 4:05 AM [facility] REPOSITORY [facility] Medical Records Department [address] [place] [address] Emergency Department Summary 07/03/18 0403 MR#: [id number] Acct: [id number] Name: EMELIA LAI Rep #: [id number] : 1965 52 From: Tom Thomas MD PCP: John Sears MD Status: REG ER - ER Visit Summary Date of Service: 07/03/18 Chief Complaint: Elevated blood pressure History of Present Illness: The patient is a 52 F who presents with elevated blood pressure. She states she got up at about midnight and had a headache which she often has when her blood pressure is high. Therefore she checked her blood pressure and it was significantly elevated at home. She did take extra losartan. She has been out of her clonidine for a couple of days. She also complains of some recent cough but denies chest pain trouble breathing fevers vomiting diarrhea. Currently her headache has resolved. She is currently asymptomatic. Physical Examination: Afebrile blood pressure 186/102, heart rate 111, vitals otherwise normal Moist mucous membranes Heart regular rhythm slightly tachycardic Lungs are clear Abdomen soft Alert and oriented with no focal or lateralizing neurological deficits Test Results: Not indicated Emergency Department Course and Treatment: Patient presents with asymptomatic elevated blood pressure. Although she did have a headache earlier she states this is not resolved. She has been out of her clonidine for a couple of days. I believe this is rebound hypertension. She was given clonidine here with improvement of her blood pressure. I did provide a refill prescription. I advised that she contact her primary care physician this morning. Patient discharged. Treatment Plan: [] Disposition: Discharge Impression: Uncontrolled hypertension Medication noncompliance This note was generated with Related Content Database (RCDb) dictation software. It may contain incorrect words, spelling, and punctuation that were not noted in review of the chart prior to signing ED Disposition - Plan for ED Patient: Chief Complaint: Hypertension Referrals: John Sears MD [Primary Care Provider] - What to do if you have Problems For any increased pain, shortness of breath, bleeding, nausea or vomiting, chest pain, or any unexpected problems, contact your Primary Care Provider. Call [facility] ([phone]) or report to the closest Emergency Room. Call 911 if necessary. 07/03/18 0405 <Electronically signed by Tom Thomas MD> Date Tom Thomas MD Cosigner Signature (If Indicated): Date CC: John Sears MD 12 LEAD ELECTROCARDIOGRAM Observed: 06/10/2018 Status: F Source: [place] 12:51 PM [facility] REPOSITORY [facility] Cardiovascular Services [address] [place] [address] 12 Lead EKG 06/07/18 0728 MR#: [id number] Acct: [id number] Name: EMELIA LAI Rep #: [id number] : 1965 52 From: Rick Gomez MD Attending Dr: Status: DEP ER Ordering Dr: Silverio Desouza MD Date: 06/07/18 Location: ED Sex: F AA Admitted: Test Reason : Blood Pressure : / mmHG Vent. Rate : 095 BPM Atrial Rate : 095 BPM P-R Int : 208 ms QRS Dur : 084 ms QT Int : 388 ms P-R-T Axes : 073 085 049 degrees QTc Int : 487 ms Normal sinus rhythm Right atrial enlargement Prolonged QT Abnormal ECG Confirmed by PATRICIA GONZALES, RICK ([id number]), assignment editor CHOCO RIOS ([id number]) on 06/10/2018 12:50:39 PM Referred By: John Sears Confirmed By:RICK GOMEZ MD 06/10/18 1250 Date Rick Gomez MD CC: John Sears MD; Silverio Desouza MD Signed EMERGENCY DEPARTMENT Observed: 06/07/2018 Status: F Source: [place] SUMMARY 10:24 AM [facility] REPOSITORY [facility] Medical Records Department [address] [place] [address] Emergency Department Summary 06/07/18 0854 MR#: [id number] Acct: [id number] Name: EMELIA LAI Rep #: [id number] : 1965 52 From: Silverio Desouza MD PCP: John Sears MD Status: REG ER - ER Visit Summary Date of Service: 06/07/18 Chief Complaint: Right-sided chest pain and left-sided neck pain with radiation to the wrist History of Present Illness: The patient is a 52 F who presents with right-sided chest pain for 1 week. She had an outpatient CT of the chest without contrast. She also complains of left-sided neck pain that radiates in the distribution of C6-7 dermatome. She denies burning pain or numbness. She does report pain and intermittent tingling. She denies weakness. She denies fever, chills night sweats. Denies weight gain or weight loss. She denies any ocular, visual or auditory symptoms. She does have a cough which is nonproductive. The cough is chronic and secondary to sarcoidosis according to the patient. She denies leg pain, swelling discoloration. There is no history of VT E. Furthermore, there is no risk factors. She denies abdominal pain, food intolerance, nausea, vomiting or diarrhea. She denies dysuria, frequency, urgency or hematuria. She denies myalgias or arthralgias. Denies swelling of any of her joints. Physical Examination: Vital signs noted and blood pressure is elevated 161/116. Head is atraumatic normocephalic. Pupils are equal round reactive. Extraocular muscles are intact. TMs are pearly white with landmarks noted. Nares patent with no drainage. Posterior pharynx without erythema or exudate. Uvula is midline. There is no dysphonia or dysphasia. Trachea is midline. There is no stridor with auscultation of the neck. Patient is edentulous. Heart is regular without murmur, gallop or rub. Lungs reveal question of adventitial breath sounds bilaterally. There is no rales, rhonchi or wheezing noted. Expiratory phase is not prolonged. Abdomen is soft nontender. Bowel sounds are present normal. There is no palpable pulsatile mass. There is no abdominal bruit. There is no asymmetry, swelling, discoloration, leg vein distention, palpable cords or tenderness along the distribution of the deep venous system. Neuro exam is remarkable for diminished biceps, brachial radialis and triceps reflex on the left. Motor is 5/5. Sensation is intact. Per review of old records she recently had a x-ray of her shoulder which was negative. Test Results: There are interstitial fibrotic changes of the lungs with honeycombing more prominent in right upper lobe, right middle lobe and right lower lobe and in the lingula and left lower lobe cavity consistent with sarcoidosis. There is associated traction bronchiectasis in the areas of fibrosis. There is no demonstrated pleural abnormality. EKG was obtained. The EKG reveals a sinus mechanism with rate of 95. GA interval is slightly prolonged at 208 ms and consistent with first-degree AV block. QRS duration normal. QT interval is prolonged. There is evidence of motion artifact. White count is elevated. She is presently on Augmentin to treat her bronchiectasis. Emergency Department Course and Treatment: Patient was informed in my professional medical opinion her neck pain and left upper extremity pain is secondary to a disc. Recommended follow-up with Dr. John Sears. If no improvement after physical therapy MRI would be indicated since deep tendon reflexes on the left are slightly diminished compared to the right. Treatment Plan: Oral analgesia and follow-up with PCP, Dr. John Sears Disposition: Discharged to home Impression: 1. Cervical 5 AND 6 radiculopathy left 2. Noncardiac right-sided chest pain 3. Sarcoidosis/bronchiectasis This note was generated with Dragon dictation software. It may contain incorrect words, spelling, and punctuation that were not noted in review of the chart prior to signing ED Disposition - Plan for ED Patient: Disposition: Home or Assisted Living Chief Complaint: Shortness of Breath Instructions: ED Cervical Radiculopathy, Discharge Instructions for Bronchiectasis, Pulmonary Sarcoidosis Prescriptions: Oxycodone HCl/Acetaminophen [Percocet 5/325] 1 tablet PO Q6H PRN PRN 5 Days #20 tablet PRN Reason: Pain Referrals: John Sears MD [Primary Care Provider] - 3-5 Days Additional Instructions: Your prescription was electronically transmitted to [facility] [employer]. What to do if you have Problems For any increased pain, shortness of breath, bleeding, nausea or vomiting, chest pain, or any unexpected problems, contact your Primary Care Provider. Call [facility] ([phone]) or report to the closest Emergency Room. Call 911 if necessary. 06/07/18 1024 <Electronically signed by Silverio Desouza MD> Date Silverio Desouza MD Cosigner Signature (If Indicated): Date CC: John Sears MD CBC-COMPLETE BLOOD CNT Collected: 06/07/2018 Status: F Source: [place] NO DIFF 9:00 AM [facility] REPOSITORY TYPE CODE TESTS RESULT OUT OF RANGE REFERENCE UNITS LAB L100.1000 4.4-11.0 K/mm3 High WBC 13.6 LAB L100.1200 4.2-5.4 M/mm3 Low RBC 3.94 LAB L100.1300 12.0-15.0 g/dl Low HGB 10.8 LAB L100.1400 37-47 % Low HCT 32.6 LAB L100.1500 81-99 fL Normal MCV 82.7 LAB L100.1600 27.0-32.0 pg Normal MCH 27.4 LAB L100.1700 32-36 g/gl Normal MCHC 33.1 LAB L100.1810 11.6-14.6 % High RDW CV 15.9 LAB L100.1820 35.1-43.9 fl High RDW SD 48.3 LAB L100.1900 150-450 K/mm3 Normal PLT 408 LAB L100.2000 6.2-12.0 fl Normal MPV 8.3 Performed By: #### L100.0500 #### [facility] [address] [place], [address] LACTIC ACID Collected: 06/07/2018 Status: F Source: [place] 9:00 AM [facility] REPOSITORY Order Comment: Yes/No query for Sepsis Lactate Rule Y TYPE CODE TESTS RESULT OUT OF RANGE REFERENCE UNITS LAB L503.6005 0.4-2.0 mmol/L Normal LACTIC ACID 1.6 Performed By: #### L503.6005 #### [facility] [address] [place], [address] CHEST WITHOUT Observed: 06/07/2018 Status: F Source: [place] CONTRAST 6:40 AM [facility] REPOSITORY [facility] Imaging Services [address] [place] [address] Chest without Contrast MR#: [id number] Acct: [id number] Name: EMELIA LAI Rep #: [id number] : 1965 F 52 From: Rosa Ortiz MD PCP: John Sears MD Status: REG CLI Study: Chest without Contrast Date of Exam: 06/07/18 Exam# [id number] Ordering Dr: John Sears MD STUDY: CT CHEST WITHOUT CONTRAST REASON FOR EXAM: Female, 52 years old. BRONCHIECTASIS W/OUT COMPLICATION SARCOIDOSIS RADIATION DOSAGE (If Supplied By Facility): CTDIvol = ( 8.41 ) mGy, DLP = ( 285.94 ) mGycm TECHNIQUE: Transaxial imaging was performed without the administration of intravenous contrast material. # of Images: 744 Individualized dose optimization techniques were used for this CT. COMPARISON: None. FINDINGS: There are interstitial fibrotic changes of the lungs with honeycombing more prominent in right upper lobe, right middle lobe and right lower lobe and in the lingula and left lower lobe cavity consistent with sarcoidosis. There is associated traction bronchiectasis in the areas of fibrosis. There is no demonstrated pleural abnormality. Normal heart and pericardium. Normal mediastinum. Normal hilar regions. Normal unenhanced pulmonary arteries. Normal aorta arch and descending thoracic aorta. Old nondisplaced fractures of the right fifth and sixth ribs. There is no demonstrated abnormality of the visualized upper abdomen. CT/Chest without Contrast IMPRESSION: There are interstitial fibrotic changes of the lungs with honeycombing more prominent in right upper lobe, right middle lobe and right lower lobe and in the lingula and left lower lobe cavity consistent with sarcoidosis. There is associated traction bronchiectasis in the areas of fibrosis. Electronically Signed: Rosa Ortiz MD at 10:00 EDT Tel , Service support , CC: John Sears MD Obiee Architect: Signed SHOULDER MIN 2 VIEWS Observed: 05/29/2018 Status: F Source: [place] 12:47 PM [facility] REPOSITORY [facility] Imaging Services [address] [place] [address] Shoulder min 2 Views MR#: [id number] Acct: [id number] Name: EMELIA LAI Rep #: [id number] : 1965 F 52 From: Steven Martinez MD PCP: John Sears MD Status: REG CLI Study: Shoulder min 2 Views Date of Exam: 05/29/18 Exam# [id number] Ordering Dr: John Sears MD STUDY: X-RAY - LEFT SHOULDER REASON FOR EXAM: Female, 52 years old. Increasing left shoulder pain with tingling in the hands TECHNIQUE: 3 view(s) of the shoulder. COMPARISON: None. FINDINGS: Normal glenohumeral articulation. Normal acromioclavicular joint. Normal acromion. Normal humeral head and visualized proximal humerus. The soft tissue structures are unremarkable. Normal visualized pulmonary apex. RAD/Shoulder min 2 Views IMPRESSION: Normal x-ray examination of the shoulder. Electronically Signed: Steven Martinez MD at 8:13 EDT , Service support , CC: John Sears MD Obiee Architect: Signed ERYTHROCYTE SED RATE Collected: 05/29/2018 Status: F Source: [place] 11:57 AM [facility] REPOSITORY Order Comment: Order Date: 03/27/18 Order Info: [id number] - CBCD Order Info: [id number] - SED TYPE CODE TESTS RESULT OUT OF RANGE REFERENCE UNITS LAB L102.0000 0-30 mm/hr High SED RATE 63 Performed By: #### L101.9900, L100.0100, L500.4050 #### [facility] [address] [place], [place], [address] CBC W/DIFF, AUTOMATED Collected: 05/29/2018 Status: C Source: [place] 11:57 AM [facility] REPOSITORY Order Comment: Order Date: 03/27/18 Order Info: [id number] - CBCD Order Info: [id number] - SED TYPE CODE TESTS RESULT OUT OF RANGE REFERENCE UNITS LAB L100.1000 4.4-11.0 K/mm3 High WBC 14.1 LAB L100.1200 4.2-5.4 M/mm3 Low RBC 3.51 LAB L100.1300 12.0-15.0 g/dl Low HGB 9.8 LAB L100.1400 37-47 % Low HCT 28.9 LAB L100.1500 81-99 fL Normal MCV 82.3 LAB L100.1600 27.0-32.0 pg Normal MCH 27.9 LAB L100.1700 32-36 g/gl Normal MCHC 33.9 LAB L100.1810 11.6-14.6 % High RDW CV 16.3 LAB L100.1820 35.1-43.9 fl High RDW SD 48.2 LAB L100.1900 150-450 K/mm3 Normal PLT 390 LAB L100.2000 6.2-12.0 fl Normal MPV 9.4 LAB L100.2100 47-70 % Low NEUT% 46.9 LAB L100.2200 19-41 % Normal LY% 30.5 LAB L100.2300 0-10 % High MONO% 15.9 LAB L100.2400 0-5 % High EO% 5.7 LAB L100.2500 0-1 % Normal BASO% 0.9 LAB L100.2550 0.0-0.9 % Normal IM GRAN % 0.100 Result Comment: IG% - Immature Granulocytes (promyelocytes, myelocytes and metamyelocytes) > 1% indicates that a LEFT SHIFT is Present. LAB L100.2620 2.0-7.7 X10 3/uL Normal Absolute Neut 6.6 LAB L100.2720 0.83-4.51 X10 3/ul Normal Absolute Lymph 4.31 LAB L100.4500 Normal SMEAR COMMENT COMMENT Result Comment: SLIDE SCANNED - MONOCYTOSIS NOTED. LAB L100.9900 Normal Reviewed PATH REV Result Comment: Leukocytosis. Normocytic anemia. Taget cells 1+ Clinical correlation necessary. Gerber Mckeon M.D. 05/31/18 AMENDED REPORT 05/31/18 1111 PATH REV previously reported as: December stephanie Performed By: #### L101.9900, L100.0100, L500.4050 #### [facility] [address] [place], [address] COMPREHENSIVE METABOLIC Collected: 05/29/2018 Status: F Source: [facility] 11:57 AM [facility] REPOSITORY Order Comment: Order Date: 03/27/18 Order Info: [id number] - CMP TYPE CODE TESTS RESULT OUT OF RANGE REFERENCE UNITS LAB L501.0100 74-106 mg/dL High GLU 131 Result Comment: Fasting Glucose result greater than or equal to 126 mg/dL suggests DIABETES MELLITUS per A.D.A. criteria. Please note revised GLUCOSE reference range effective 2017. LAB L501.1000 7-18 mg/dL Normal BUN 13 LAB L501.1100 0.55-1.02 mg/dL High CREAT,SERUM 1.21 Result Comment: The validity of the calculated GFR AND GFRAA in patients over 70 years has not been determined. Clinical correlation is essential. LAB L501.1110 >60 mL/min Low EST GFR 50 Result Comment: Non- GFR Calc LAB L501.1115 >60 mL/min Normal EST GFR - AA 60 Result Comment: GFR Calc LAB L501.1300 10-20 RATIO Normal BUN/CRE 10.7 LAB L501.1500 6.4-8.2 g/dL High T PROT 8.4 LAB L501.1800 3.2-5.0 g/dL Normal ALB 3.4 LAB L501.1950 2.2-4.2 g/dL High GLOB 5.0 LAB L501.2000 0.9-2.4 RATIO Low A/G 0.7 LAB L501.2200 8.5-10.1 mg/dL CA Normal 8.9 LAB L501.4100 15-37 U/L Normal AST 19 LAB L501.4305 45-117 U/L High ALK P 149 LAB L501.4405 13-56 U/L Normal ALT 18 LAB L501.4600 0.20-1.00 mg/dL T Normal BILI 0.20 LAB L501.5300 136-145 mmol/L NA Normal 138 LAB L501.5600 3.5-5.1 mmol/L K Normal 3.5 LAB L501.5900 98-107 mmol/L CL Normal 103 LAB L501.6100 21.0-32.0 mmol/L Normal CO2 25.0 LAB L501.6200 5-15 Normal GAP 10 Performed By: #### L101.9900, L100.0100, L500.4050 #### [facility] [address] [place], [place], [id number] CBC AND DIFFERENTIAL Collected: 03/28/2018 Status: F Source: [place] 8:30 AM CLINIC REFERENCE REPOSITORY TYPE CODE TESTS RESULT OUT OF REFERENCE UNITS RANGE LAB WBC(LOINC) 3.70-11.00 k/uL WBC High 12.07 LAB RBC(LOINC) 3.90-5.20 m/uL RBC 4.01 LAB HGB(LOINC) 11.5-15.5 g/dL Hemoglobin Low 11.0 LAB HCT(LOINC) 36.0-46.0 % Hematocrit Low 33.1 LAB MCV(LOINC) 80.0-100.0 fL MCV 82.5 LAB MCH(LOINC) 26.0-34.0 pG MCH 27.4 LAB MCHC(LOINC 30.5-36.0 g/dL ) MCHC 33.2 LAB RDWCV(LOIN 11.5-15.0 % C) RDW-CV High 17.5 LAB PLTCT(LOIN 150-400 k/uL C) Platelet Count High 421 LAB MPV(LOINC) 9.0-12.7 fL MPV 10.1 LAB ANEUT(LOIN % C) Neut% 49.2 LAB AANEUT(MARIA ISABEL 1.45-7.50 k/uL NC) Abs Neut 5.94 LAB ALYMP(LOIN % C) Lymph% 31.0 LAB AALYMP(MARIA IASBEL 1.00-4.00 k/uL NC) Abs Lymph 3.74 LAB AMONO(LOIN % C) [place]% 10.3 LAB AAMONO(MARIA ISABEL <0.87 k/uL NC) Abs [place] High 1.24 LAB AEOS(LOINC % ) Eosin% 7.8 LAB AAEOS(LOIN <0.46 k/uL C) Abs Eosin High 0.94 LAB ABASO(LOIN % C) Baso% 1.7 LAB AABASO(MARIA ISABEL <0.11 k/uL NC) Abs Baso High 0.21 LAB NRBC(LOINC 0 /100 WBC ) NRBCs High 1 LAB ANIIMI(MARIA ISABEL NC) Anisocytosis PRES LAB POLIMI(MARIA ISABEL NC) Polychromasia SL LAB TARIMI(MARIA ISABEL NC) Target Cells FEW LAB PLTEST(MARIA ISABEL NC) Platelet Estimate INCPLT LAB DTYP(LOINC ) DTYPE MDIF Performed By: #### CBCDIF, WSR, CMP #### [facility] Routine Lab [address] [place], [place] [address] SED RATE PRINCEREN Collected: 03/28/2018 Status: F Source: [place] 8:30 AM CLIN[facility] REFERENCE REPOSITORY TYPE CODE TESTS RESULT OUT OF REFERENCE UNITS RANGE LAB WSR(LOINC) 0-20 mm/hr Sed Rate High [place] 40 Performed By: #### CBCDIF, WSR, CMP #### [facility] Routine Lab [address] [place], [place] [address] COMP METABOLIC PANEL Collected: 03/28/2018 Status: F Source: [place] 8:30 AM [facility] REFERENCE REPOSITORY TYPE CODE TESTS RESULT OUT OF REFERENCE UNITS RANGE LAB TP(LOINC) 6.3-8.0 g/dL Protein, Total 7.9 LAB ALB(LOINC) 3.9-4.9 g/dL Albumin 3.9 LAB CA(LOINC) 8.5-10.2 mg/dL Calcium, Total 9.8 LAB TBIL(LOINC 0.2-1.3 mg/dL ) Bilirubin, Total 0.2 LAB ALKP(LOINC 32-117 U/L ) Alkaline Phosphatase 106 LAB AST(LOINC) 13-35 U/L AST 22 LAB GLU(LOINC) 74-99 mg/dL Glucose High 126 LAB BUN(LOINC) 7-21 mg/dL BUN 9 LAB CRET(LOINC 0.58-0.96 mg/dL ) Creatinine High 1.02 LAB NA(LOINC) 136-144 mmol/L Sodium 137 LAB K(LOINC) 3.7-5.1 mmol/L Potassium 3.9 LAB CL(LOINC) 97-105 mmol/L Chloride 105 LAB CO2(LOINC) 22-30 mmol/L Low CO2 18 LAB AGAP(LOINC 9-18 mmol/L ) Anion Gap 14 LAB ALT(LOINC) 7-38 U/L ALT 14 LAB GFRAA(LOIN C) eGFR- >60 Amer. LAB GFRNAA(MARIA ISABEL . NC) eGFR-All Other Races 57 Performed By: #### CBCDIF, WSR, CMP #### [facility] Routine Lab [address] [place], [place] [address] TOXICOLOGY PANEL BLD Collected: 03/28/2018 Status: F Source: [place] 8:28 AM [facility] REPOSITORY TYPE CODE TESTS RESULT OUT OF REFERENCE UNITS RANGE LAB ACETM 10-30 ug/mL Acetaminophen Low 6 Result Comment: Toxic > 200 ug/mL 4 hours post ingestion The Blanka White nomogram can be used to estimate the probability of hepatotoxicity via the relationship of plasma acetaminophen concentration to the post ingestion interval. (Jayy. Pedi atrics. 1975. 55:871 to 876 and Blanka et al. Arch Buyer Planner Med. 1981. 141:380 to 385). Reference ranges and high/low indicator flags are provided as general guidelines only. The treating physician must determine appropriate target levels/dosing based on the specific clinical situation. LAB ALCO <11 mg/dL Ethanol <11 Result Comment: Values > 80 mg/dL may indicate intoxication LAB SALI 3.0-30.0 mg/dL Salicylate Low 1.0 Result Comment: The therapeutic range varies and has been reported to be 3.0 to 10.0 mg/dL for anti pyretic/analgesic conditions and 15.0 to 30.0 mg/dL for anti inflammatory/rheumatic fever conditions. Ranges published by the instrument measuring machine operator. Reference ranges and high/low indicator flags are provided as general guidelines only. The treating physician must determine appropriate target levels/dosing based on the specific clinical situation. Performed By: #### TOXP, CMP, CBCDIF #### [facility] [address] [place], [place] [address] COMP METABOLIC PANEL Collected: 03/28/2018 Status: F Source: [place] 8:28 AM [facility] REPOSITORY TYPE CODE TESTS RESULT OUT OF REFERENCE UNITS RANGE LAB TP 6.3-8.0 g/dL Protein, Total 7.9 LAB ALB 3.9-4.9 g/dL Albumin 4.0 LAB CA 8.5-10.2 mg/dL Calcium, Total 10.0 LAB TBIL 0.2-1.3 mg/dL Bilirubin, Total 0.2 LAB ALKP 32-117 U/L Alkaline Phosphatase 100 LAB AST 13-35 U/L AST 26 LAB GLU 74-99 mg/dL Glucose High 129 Result Comment: The [place] Diabetes Association (ADA) provides guidance for cutoff values for fasting glucose and random glucose. The ADA defines fasting as no caloric intake for at least 8 hours. Fas ting plasma glucose results between 100 to 125 mg/dL indicate increased risk for diabetes (prediabetes). Fasting plasma glucose results greater than or equal to 126 mg/dL meet the criteria for diagnosis of diabetes. In the absence of unequivocal hyperglycemia, results should be confirmed by repeat testing. In a patient with classic symptoms of hyperglycemia or hyperglycemic crisis, random plasma glucose results greater than or equal to 200 mg/dL meet the criteria for diagnosis of diabetes. Reference: Standards of Medical Care in Diabetes 2016, [place] [employer] Association. Diabetes Care. 2016.39(Suppl 1). LAB BUN 7-21 mg/dL BUN 9 LAB CRET 0.58-0.96 mg/dL Creatinine High 1.00 LAB NA 136-144 mmol/L Sodium 136 LAB K 3.7-5.1 mmol/L Potassium 3.8 LAB CL 97-105 mmol/L Chloride 105 LAB CO2 22-30 mmol/L Low CO2 20 LAB AGAP 9-18 mmol/L Anion Gap 11 LAB ALT 7-38 U/L ALT 8 LAB GFRAA eGFR- Amer. >60 LAB GFRNAA . eGFR-All Other Races 58 Result Comment: eGFR (Estimated GFR) Units of measure: mL/min/1.73 meters squared eGFR is derived from the reexpressed MDRD Study equation using the following parameters: serum creatinine, age, gender and race. The creatinine assay has been calibrated to be traceable to IDMS. An eGFR <60 mL/min/1.73m2 for >3 months is consistent with chronic kidney disease. Refer to KDOQI guidelines for clinical interpretation. In patients with unstable renal function, e.g. those with acute kidney injury, the eGFR may not accurately reflect actual GFR. Performed By: #### TOXP, CMP, CBCDIF #### [facility] [address] [place] [id number] CBC AND DIFFERENTIAL Collected: 03/28/2018 Status: F Source: [place] 8:28 AM [facility] REPOSITORY TYPE CODE TESTS RESULT OUT OF REFERENCE UNITS RANGE LAB WBC 3.70-11.00 k/uL WBC High 12.12 LAB RBC 3.90-5.20 m/uL RBC 3.99 LAB HGB 11.5-15.5 g/dL Hemoglobin Low 10.9 LAB HCT 36.0-46.0 % Hematocrit Low 32.8 LAB MCV 80.0-100.0 fL MCV 82.2 LAB MCH 26.0-34.0 pG MCH 27.3 LAB MCHC 30.5-36.0 g/dL MCHC 33.2 LAB RDWCV 11.5-15.0 % RDW-CV High 17.3 LAB PLTCT 150-400 k/uL Platelet Count 398 LAB MPV 9.0-12.7 fL MPV 9.5 LAB ANEUT % Neut% 45.3 LAB AANEUT 1.45-7.50 k/uL Abs Neut 5.49 LAB ALYMP % Lymph% 37.6 LAB AALYMP 1.00-4.00 k/uL Abs Lymph High 4.56 LAB AMONO % [place]% 8.5 LAB AAMONO <0.87 k/uL Abs [place] High 1.03 LAB AEOS % Eosin% 6.0 LAB AAEOS <0.46 k/uL Abs Eosin High 0.73 LAB ABASO % Baso% 2.6 LAB AABASO <0.11 k/uL Abs Baso High 0.32 LAB ANIIMI Anisocytosis Present LAB POLIMI Polychromasia Slight LAB RCFIMI RBC Fragments Few LAB TARIMI Target Cells Few LAB PLTEST Platelet Estimate Platelet estimate adequate LAB DTYP DTYPE Manual Diff Performed By: #### TOXP, CMP, CBCDIF #### [facility] [address] [place] [id number] URINALYSIS, COMPLETE Collected: 03/19/2018 Status: F Source: [place] 12:00 AM [facility] REPOSITORY Order Comment: How was Urine Obtained? CLEAN CATCH TYPE CODE TESTS RESULT OUT OF RANGE REFERENCE UNITS LAB L400.3000 Yellow COLOR Normal Yellow LAB L400.3050 Clear Normal CLARITY Clear LAB L400.3200 Normal mg/dl Normal GLUCOSE, UR Normal LAB L400.3300 Negative mg/dL Normal BILIRUBIN URINE Negative LAB L400.3400 Negative mg/dl Normal KETONE UR Negative LAB L400.3465 1.002-1.030 Normal SP.GR. DIPSTX 1.010 LAB L400.3550 5.0 - 8.0 pH UR Normal 7.0 LAB L400.3600 Negative mg/dl PROT Normal DIPSTX Negative LAB L400.3700 Normal mg/dl Normal UROBILI Normal LAB L400.3750 Negative Normal NITRITE UR Negative LAB L400.3780 Negative /ul Normal OCCULT BLOOD-UR Negative LAB L400.3800 Negative /ul LEUK Normal ESTERASE Negative LAB L400.4050 0-5 /hpf WBC 0 Normal SEEN LAB L400.4100 0-5 /hpf 0 Normal RBC-UA SEEN LAB L400.4150 5-10 /hpf SQUAM Normal EPI 0-5 SEEN LAB L400.4300 None Seen /hpf 0 Normal BACTERIA SEEN LAB L400.4350 <or=2+ /hpf 0 Normal MUCUS, URINE SEEN Performed By: #### L400.0001 #### [facility] [address] [place], [address] Observed: 03/19/2018 Status: F Source: [place] CULTURE, NOSE 12:00 AM [facility] REPOSITORY Gram Stain Gram Stain 1+ Epithelial cells No White Blood Cells 1+ Gram negative rods Nasoph. Cult No Haemophilus, Streptococcus pneumoniae, beta-hemolytic Streptococcus or Staphylococcus aureus isolated. ORGANISM 1: Escherichia coli Amount Growth 1+ Escherichia coli: REACTION Amoxacillin/Clavulanic Acid $ 8 S Ampicillin $ >=32 R Ampicillin/Sulbactam $ 16 I Cefazolin $ <=4 S Cefepime $ <=1 S Ceftriaxone $ <=1 S Ciprofloxacin $ >=4 R ESBL - Ertapenim $$$ <=0.5 S Gentamicin $ <=1 S Imipenem *NF <=0.25 S Levofloxacin $ >=8 R Piperacillin/Tazobactam $$ <=4 S Tobramycin $ <=1 S Trimethoprim/Sulfametho $ >=320 R (NF) indicates non-formulary drug at [facility]. Approval by Infectious Disease Specialist required before non-formulary drugs may be ordered and/or dispensed. Performed By: #### M100.0900 #### [facility] [address] [place], [place], [address] Observed: 03/19/2018 Status: F Source: [place] CULTURE, THROAT 12:00 AM [facility] REPOSITORY Culture, Throat Mixed normal liya. No Haemophilus, Streptococcus pneumoniae, beta-hemolytic Streptococcus or Staphylococcus aureus isolated. ORGANISM 1: Escherichia coli Amount Growth 2+ Escherichia coli: REACTION Amoxacillin/Clavulanic Acid $ 8 S Ampicillin $ >=32 R Ampicillin/Sulbactam $ >=32 R Cefazolin $ <=4 S Cefepime $ <=1 S Ceftriaxone $ <=1 S Ciprofloxacin $ >=4 R ESBL - Ertapenim $$$ <=0.5 S Gentamicin $ <=1 S Imipenem *NF <=0.25 S Levofloxacin $ >=8 R Piperacillin/Tazobactam $$ <=4 S Tobramycin $ <=1 S Trimethoprim/Sulfametho $ >=320 R (NF) indicates non-formulary drug at [facility]. Approval by Infectious Disease Specialist required before non-formulary drugs may be ordered and/or dispensed. Performed By: #### M100.1000 #### [facility] [address] [place], [address] Observed: 03/19/2018 Status: F Source: [place] CULTURE, URINE 12:00 AM [facility] REPOSITORY Urine Culture ORGANISM 1: Mixed Gram Positive Organisms [place] Count 11,000-25,000 MIX CULTURE Mixed contaminants. Submit a new specimen if indicated. Performed By: #### M100.0650 #### [facility] [address] [place], [address] BLOOD GASES BY [facility] Collected: 03/14/2018 Status: F Source: [place] 3:04 PM [facility] REPOSITORY TYPE CODE TESTS RESULT OUT OF RANGE REFERENCE UNITS LAB L9000.9990 Normal BLD GAS TYPE ART LAB L9001.1000 Normal SITE R Radial LAB L9001.1010 Normal ALFREDO TEST POS LAB L9001.1050 O2 Normal Delivery Dev Room Air LAB L9001.1104 Normal Results To PCP LAB L9001.1105 Normal Time Given 1503 LAB L9001.1110 7.35-7.45 pH Normal - I-STAT 7.36 LAB L9001.1210 35-45 mmHg Normal pCO2 - ISTAT 39.9 LAB L9001.1310 75-100 mmHG Low PO2 I-STAT 67 LAB L9001.2300 22-26 mmol/L Normal HCO3 ISTAT 22.7 LAB L9001.2400 -2 to +2 mmol/L Low BE ISTAT -3 LAB L9001.2415 mmol/L Normal TOTAL CO2 24 ISTAT LAB L9001.2425 95-99 % Low SO2 ISTAT 92 Performed By: #### L9000.0800 #### [facility] Point of Care [address] [place] [address] CBC W/DIFF, AUTOMATED Collected: 03/14/2018 Status: C Source: [place] 2:23 PM [facility] REPOSITORY TYPE CODE TESTS RESULT OUT OF RANGE REFERENCE UNITS LAB L100.1000 4.4-11.0 K/mm3 High WBC 12.6 LAB L100.1200 4.2-5.4 M/mm3 Low RBC 3.37 LAB L100.1300 12.0-15.0 g/dl Low HGB 9.0 LAB L100.1400 37-47 % Low HCT 27.4 LAB L100.1500 81-99 fL Normal MCV 81.3 LAB L100.1600 27.0-32.0 pg Low MCH 26.7 LAB L100.1700 32-36 g/gl Normal MCHC 32.8 LAB L100.1810 11.6-14.6 % High RDW CV 18.0 LAB L100.1820 35.1-43.9 fl High RDW SD 52.8 LAB L100.1900 150-450 K/mm3 High PLT 525 LAB L100.2000 6.2-12.0 fl Normal MPV 8.5 LAB L100.2100 47-70 % Normal NEUT% 52.3 LAB L100.2200 19-41 % Normal LY% 25.5 LAB L100.2300 0-10 % High MONO% 15.5 LAB L100.2400 0-5 % High EO% 5.5 LAB L100.2500 0-1 % Normal BASO% 0.6 LAB L100.2550 0.0-0.9 % Normal IM GRAN % 0.600 Result Comment: IG% - Immature Granulocytes (promyelocytes, myelocytes and metamyelocytes) > 1% indicates that a LEFT SHIFT is Present. LAB L100.2620 2.0-7.7 X10 3/uL Normal Absolute Neut 6.6 LAB L100.2720 0.83-4.51 X10 3/ul Normal Absolute Lymph 3.22 LAB L100.4500 Normal SMEAR COMMENT SEE COMMENT Result Comment: MONOCYTOSIS NOTED LAB L100.5500 ADEQ Normal PLT MOD INC EST LAB L100.7000 NORM C AND NORMAL C Normal RED NORM C+C CELL MORPH LAB L100.9900 Normal PATH Reviewed REV Result Comment: Leukocytosis. Normocytic anemia. Thrombocytosis. Clinical correlation necessary. Gerber Mckeon M.D. 03/15/18 AMENDED REPORT 03/15/18 0934 PATH REV previously reported as: Sujey brown Performed By: #### L100.0100 #### [facility] [address] [place], [address] COMPREHENSIVE METABOLIC Collected: 03/14/2018 Status: F Source: [place] [facility] 2:23 PM [facility] REPOSITORY TYPE CODE TESTS RESULT OUT OF RANGE REFERENCE UNITS LAB L501.0100 74-106 mg/dL Normal GLU 83 Result Comment: Please note revised GLUCOSE reference range effective 2017. LAB L501.1000 7-18 mg/dL Normal BUN 8 LAB L501.1100 0.55-1.02 mg/dL Normal CREAT,SERUM 1.02 Result Comment: The validity of the calculated GFR AND GFRAA in patients over 70 years has not been determined. Clinical correlation is essential. LAB L501.1110 >60 mL/min Normal EST GFR 60 Result Comment: Non- GFR Calc LAB L501.1115 >60 mL/min Normal EST GFR - AA 73 Result Comment: GFR Calc LAB L501.1300 10-20 RATIO Low BUN/CRE 7.8 LAB L501.1500 6.4-8.2 g/dL Normal T PROT 7.6 LAB L501.1800 3.2-5.0 g/dL Low ALB 2.7 LAB L501.1950 2.2-4.2 g/dL High GLOB 4.9 LAB L501.2000 0.9-2.4 RATIO Low A/G 0.6 LAB L501.2200 8.5-10.1 mg/dL Normal CA 8.9 LAB L501.4100 15-37 U/L Normal AST 19 LAB L501.4305 45-117 U/L High ALK P 126 LAB L501.4405 13-56 U/L Low ALT 12 LAB L501.4600 0.20-1.00 mg/dL Normal T BILI 0.20 LAB L501.5300 136-145 mmol/L Normal NA 139 LAB L501.5600 3.5-5.1 mmol/L Normal K 4.5 LAB L501.5900 98-107 mmol/L Normal CL 106 LAB L501.6100 21.0-32.0 mmol/L Normal CO2 26.0 LAB L501.6200 5-15 Normal GAP 7 Performed By: #### L500.4050, L501.6710, L501.9310, L501.9520 #### [facility] [address] [place], [address] CRP Collected: 03/14/2018 Status: F Source: [place] 2:23 PM [facility] REPOSITORY TYPE CODE TESTS RESULT OUT OF RANGE REFERENCE UNITS LAB L501.6710 0.0-3.0 mg/L High 38.40 C-REACTIVE PROT Result Comment: C-Reactive Protein (CRP) provides useful information for the diagnosis, therapy and monitoring of inflammatory processes and associated diseases. For the evaluation of Relative Risk for Cardiovascular Disease, a High Sensitivity CRP (HSCRP) should be ordered. Performed By: #### L500.4050, L501.6710, L501.9310, L501.9520 #### [facility] [address] [place], [address] T4 TOTAL, THYROXIN Collected: 03/14/2018 Status: F Source: [place] 2:23 PM [facility] REPOSITORY TYPE CODE TESTS RESULT OUT OF RANGE REFERENCE UNITS LAB L501.9310 4.8-13.9 ug/dL T4 Normal THYROXIN 9.6 Performed By: #### L500.4050, L501.6710, L501.9310, L501.9520 #### [facility] [address] [place], [address] THYROID STIM HORMONE Collected: 03/14/2018 Status: F Source: [place] ([facility]) 2:23 PM [facility] REPOSITORY TYPE CODE TESTS RESULT OUT OF RANGE REFERENCE UNITS LAB L501.9520 0.358-3.74 uIU/mL Normal TSH 1.06 Performed By: #### L500.4050, L501.6710, L501.9310, L501.9520 #### [facility] [address] [place], [address] PROCALCITONIN Collected: 03/14/2018 Status: F Source: [place] 2:23 PM [facility] REPOSITORY TYPE CODE TESTS RESULT OUT OF REFERENCE UNITS RANGE LAB L3300.0980 0.00-0.08 ng/mL Procalcitonin Normal 0.04 Result Comment: The change of PCT concentration over time provides prognostic information about the risk of mortality within 28 days for patients diagnosed with severe sepsis or septic shock coming from the emergency department, ICU, other medical wards, or directly from outside the hospital. Data supports the use of PCT determinations from the day severe sepsis or septic shock is first diagnosed (Day 0) or the day thereafter (Day 1) and the fourth day after diagnosis (Day 4) for the classification of patients into higher and lower risk for mortality within 28 days according to the workflow below: PCT Day 0(or Day 1) - PCT Day 4 delta PCT = X 100% PCT Day 0 (or Day 1) A decrease of PCT levels below or equal to 80% defines a positive delta PCT test result representing a higher risk for 28-day all-cause mortality of patients diagnosed with severe sepsis or septic shock. A decreased of PCT levels of more than 80% defines a negative delta PCT result representing a lower risk for 28-day all-cause mortality of patients diagnosed with severe sepsis or septic shock. To determine delta PCT results from the absolute PCT concentrations of a patient obtained on the day severe sepsis or septic shock was first diagnosed (or 24 hours later) and on Day 4, go to [email or web address]. Performed at: [facility] [id number] Aircraft Structure Mechanic: Hossein Bullard MD, Phone: [phone] Performed By: #### L3300.0980 #### [facility] (refer to report for specific site) refer to report for address and phone number ANGIOTENSIN CONVERT Collected: 03/14/2018 Status: F Source: NEGAR ENZYME 2:23 PM [facility] REPOSITORY TYPE CODE TESTS RESULT OUT OF RANGE REFERENCE UNITS LAB L3100.6900 14-82 U/L Normal KYMBERLY [id number] 63 Result Comment: Performed at: [facility] [place] [id number] Aircraft Structure Mechanic: Fredi Daniels PhD, Phone: [phone] Performed By: #### L3100.6900 #### [facility] (refer to report for specific site) refer to report for address and phone number EMERGENCY DEPARTMENT Observed: 02/26/2018 Status: F Source: MCCURTAIN SUMMARY 7:20 AM [facility] REPOSITORY [facility] Medical Records Department [address] [place] [address] Emergency Department Summary 02/03/18 1623 MR#: [id number] Acct: [id number] Name: EMELIA LAI Rep #: [id number] : 1965 52 From: Edgar Navarrete MD PCP: John Sears MD Status: DEP ER - ER Visit Summary Date of Service: 02/03/18 Chief Complaint: [] Resents with possible seizure. The patient stated she rolled out of bed but does not remember it. She fell onto the floor below. No injury. She stated that her told her she had some shaking that went away quickly. She did not lose control of her bowel or bladder. She did bite her tongue. She had remote seizures several years ago. She is 9 medication for this. She was on seizure medicines remotely. She was admitted for UTI with cystitis sepsis. 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 Denies any other complaints except for nausea. She did take accidentally 1 of her husbands doses of metformin. This was several hours ago. History of Present Illness: The patient is a 52 F [] Physical Examination: [] Vital signs reviewed General: Well-nourished well-developed Head: Normocephalic atraumatic Eyes: Pupils equal round and reactive to light extraocular movements intact ENT: TMs clear no hemotympanum no trauma Neck: Nontender full range of motion Cardiovascular: Regular rate rhythm no murmurs normal S1-S2 Respiratory: No distress distant breath sounds but present. No wheezing chest nontender Abdomen: Soft nontender nondistended normal bowel sounds no masses Back: Nontender no CVA tenderness Extremities: Nontender active range of motion 4 extremities no trauma Skin: Normal color no trauma Neuro alert oriented cranial nerves II through XII intact normal strength sensation reflexes Test Results: [] Emergency Department Course and Treatment: [] Patient given a liter fluid and Zofran. Lab work obtained. CBC normal except a white count of 19.4. This is chronic for the patient. Patient has chronic anemia with a hemoglobin 9.7. Chemistries normal except potassium 2.8 sodium 135. Patient has history of hypo-kalemia as well. She does not take any medicines for it. At this time patient given oral K-Dur. Given IV fluids Zofran. She ambulated to the bathroom without problems. She is resting comfortably. I do not think she needs to be admitted. I have a low suspicion for an actual seizure. She has no postictal state. I feel she can follow-up. Treatment Plan: [] Disposition: [] Impression: [] Fall from bed with reported possible seizure Hypokalemia acute on chronic This note was generated with reportbraination software. It may contain incorrect words, spelling, and punctuation that were not noted in review of the chart prior to signing ED Disposition - Plan for ED Patient: Chief Complaint: Shortness of Breath Referrals: John Sears MD [Primary Care Provider] - What to do if you have Problems For any increased pain, shortness of breath, bleeding, nausea or vomiting, chest pain, or any unexpected problems, contact your Primary Care Provider. Call [facility] ([phone]) or report to the closest Emergency Room. Call 911 if necessary. 02/26/18719 <Electronically signed by Edgar Navarrete MD> Date Edgar Navarrete MD Cosigner Signature (If Indicated): Date CC: John Sears MD DISCHARGE INSTRUCTION Observed: 02/26/2018 Status: F Source: NEGAR 7:20 AM [facility] REPOSITORY [facility] Medical Records Department [facility] [place] [address] Discharge Instruction 02/03/18 1728 MR#: [id number] Acct: [id number] Name: EMELIA LAI Rep #: [id number] : 1965 52 From: Edgar Navarrete MD PCP: John Sears MD Status: DEP ER ED Disposition - Plan for ED Patient: Disposition: Home or Assisted Living Chief Complaint: Shortness of Breath Instructions: Discharge Instructions for Hypokalemia Prescriptions: Potassium Chloride 20 meq PO DAILY #7 [email or web address].[id number] Referrals: John Sears MD [Primary Care Provider] - What to do if you have Problems For any increased pain, shortness of breath, bleeding, nausea or vomiting, chest pain, or any unexpected problems, contact your Primary Care Provider. Call [facility] ([phone]) or report to the closest Emergency Room. Call 911 if necessary. 02/26/18 0720 <Electronically signed by Edgar Navarrete MD> Date Edgar Navarrete MD Cosigner Signature (If Indicated): Date CC: John Sears MD 12 LEAD ELECTROCARDIOGRAM Observed: 02/15/2018 Status: F Source: MCCURTAIN 8:39 AM [facility] REPOSITORY [facility] Cardiovascular Services [address] [place] [address] 12 Lead EKG 02/12/18 1025 MR#: [id number] Acct: [id number] Name: EMELIA LAI Rep #: [id number] : 1965 52 From: Seth Acevedo MD Attending Dr: Status: DEP ER Ordering Dr: Felicity Kothari MD Date: 02/12/18 Location: ED Sex: F AA Admitted: Test Reason : SOB Blood Pressure : / mmHG Vent. Rate : 104 BPM Atrial Rate : 104 BPM P-R Int : 166 ms QRS Dur : 084 ms QT Int : 352 ms P-R-T Axes : 073 086 051 degrees QTc Int : 462 ms Sinus tachycardia Right atrial enlargement Borderline ECG Confirmed by SETH ACEVEDO MD ([id number]), assignment editor CHOCO RIOS ([id number]) on 02/15/2018 8:39:31 AM Referred By: Kaleb Patel Confirmed By:SETH ACEVEDO MD 02/15/18 0839 Date Seth Acevedo MD CC: John Sears MD; Felicity Kothari MD Signed EMERGENCY DEPARTMENT Observed: 02/12/2018 Status: F Source: MCCURTAIN SUMMARY 6:04 PM [facility] REPOSITORY [facility] Medical Records Department [address] [place] [address] Emergency Department Summary 02/12/18 1631 MR#: [id number] Acct: [id number] Name: EMELIA LAI Rep #: [id number] : 1965 52 From: Felicity Kothari MD PCP: John Sears MD Status: DEP ER - ER Visit Summary Date of Service: 02/12/18 Chief Complaint: Weakness History of Present Illness: The patient is a 52 F with a 2 week history of generalized body aches, and weakness, cough, nausea. She does report having chills but no fever. Patient has a history of hypertension, asthma, COPD, and sarcoidosis. Patient was admitted recently with sepsis secondary to UTI. Physical Examination: Vital signs are unremarkable. Patient sitting upright in bed no acute distress. Head and neck examination is normal. Heart is regular rate and rhythm. Lung sounds with mild expiratory wheezes. Abdomen is soft nontender. Lower external examination was no calf tenderness or edema. Test Results: CBC was a white count 11.8 and hemoglobin 10.9. Chemistry studies reveal sodium of 134. Urinalysis is normal. Troponin is less than 0.015. EKG is sinus at 104 with no sign of acute ischemia. Patient was given DuoNeb, morphine, Zofran, and IV fluids. Chest x-ray reveals bilateral interstitial fibrosis with honeycombing worse in the right lung. No acute infiltrate noted. This is stable compared to prior study. CTA of the chest was then obtained due to continued pain in the right upper chest. This shows chronic changes with no sign of PE or dissection. Emergency Department Course and Treatment: Patient was given additional Solu-Medrol and Afrin nasal spray. Patient does tell me that she recently saw her ENT doctor who did a nasal culture. I was able to pull this up and nasal culture was positive for E. coli and Pseudomonas. I spoke with Dr. Fitch, on-call for Dr. Patel. Patient apparently had Augmentin called in already. We will add Levaquin for Pseudomonas coverage as well. Treatment Plan: [] Disposition: Discharge Impression: 1. Viral syndrome 2. Sinus infection This note was generated with Related Content Database (RCDb) dictation software. It may contain incorrect words, spelling, and punctuation that were not noted in review of the chart prior to signing ED Disposition - Plan for ED Patient: Chief Complaint: General Illness Referrals: John Sears MD [Primary Care Provider] - What to do if you have Problems For any increased pain, shortness of breath, bleeding, nausea or vomiting, chest pain, or any unexpected problems, contact your Primary Care Provider. Call [facility] ([phone]) or report to the closest Emergency Room. Call 911 if necessary. 02/12/18 1804 <Electronically signed by Felicity Kothari MD> Date Felicity Kothari MD Cosigner Signature (If Indicated): Date CC: John Sears MD DISCHARGE INSTRUCTION Observed: 02/12/2018 Status: F Source: MCCURTAIN 4:36 PM [facility] REPOSITORY [facility] Medical Records Department [address] [place] [address] Discharge Instruction 02/12/18 1634 MR#: [id number] Acct: [id number] Name: EMELIA LAI Rep #: [id number] : 1965 52 From: Felicity Kothari MD PCP: John Sears MD Status: REG ER ED Disposition - Plan for ED Patient: Disposition: Home or Assisted Living Chief Complaint: General Illness Instructions: ED Viral Syndrome, Acute Sinusitis Prescriptions: Levofloxacin [Levaquin] 750 mg PO DAILY #5 tablet Prednisone [Deltasone] 40 mg PO DAILY #8 tablet Referrals: John Sears MD [Primary Care Provider] - Kaleb Patel MD [STAFF PHYSICIAN] - What to do if you have Problems For any increased pain, shortness of breath, bleeding, nausea or vomiting, chest pain, or any unexpected problems, contact your Primary Care Provider. Call [facility] ([phone]) or report to the closest Emergency Room. Call 911 if necessary. 02/12/18 1636 <Electronically signed by Felicity Kothari MD> Date Felicity Kothari MD Cosigner Signature (If Indicated): Date CC: John Sears MD CTA CHEST W/WO Observed: 02/12/2018 Status: F Source: NEGAR CONTRAST 12:51 PM [facility] REPOSITORY [facility] Imaging Services [address] [place] [address] CTA Chest W/WO Contrast MR#: [id number] Acct: [id number] Name: EMELIA LAI Rep #: [id number] : 1965 F 52 From: Fredy Olmos MD PCP: John Sears MD Status: REG ER Study: CTA Chest W/WO Contrast Date of Exam: 02/12/18 Exam# [id number] Ordering Dr: Felicity Kothari MD STUDY: CTA CHEST REASON FOR EXAM: Female, 52 years old. Chest pain. Nausea. RADIATION DOSAGE (If Supplied By Facility): CTDIvol = ( 5.33 ) mGy, DLP = ( 154.57 ) mGycm TECHNIQUE: The examination was performed with the intravenous administration of 75 ml of Isovue 370 contrast material. Post-processing of the angiographic images was performed, with multiplanar reformation and 3D reconstruction. Individualized dose optimization techniques were used for this CT. COMPARISON: Comparison is made with prior study dated September 11, 2017. FINDINGS: Normal enhancement of the main pulmonary artery and right and left pulmonary arteries. Normal enhancement of the bilateral peripheral pulmonary arteries. There is no demonstrated pulmonary embolism. Normal thoracic aorta and visualized great vessels. There is no demonstrated aortic dissection. Normal heart and pericardium. Normal mediastinum. There are bilateral hilar lymph nodes, which are normal in size and morphology. Normal visualized trachea and bronchi. The lungs are well expanded. 1 segment, there is evidence of bronchiectasis and volume loss in the right upper lobe. There is also evidence of bronchiectasis and C6 changes in the posterior aspect of the left upper lobe as well as the right lower lobe and left lower lobes. This also involves the lingular segment of the left upper lobe. Normal pleura. Normal chest wall structures. Normal osseous structures. Normal visualized upper abdomen. CT/CTA Chest W/WO Contrast IMPRESSION: There is no evidence of pulmonary embolism. Stable appearance of the chronic scarring with honeycombing and bronchiectasis in both lungs worse on the right side. Electronically Signed: Fredy Olmos MD at 13:46 EDT Tel [phone], Service support , CC: John Sears MD; Felicity Kothari MD Obiee Architect: Signed URINALYSIS, COMPLETE Collected: 02/12/2018 Status: F Source: NEGAR 10:50 AM [facility] REPOSITORY Order Comment: Order Date: 02/12/18 Has pt arrived? Y How was Urine Obtained? CLEAN CATCH TYPE CODE TESTS RESULT OUT OF RANGE REFERENCE UNITS LAB L400.3000 Yellow COLOR Normal Yellow LAB L400.3050 Clear Normal CLARITY Sl. Cloudy LAB L400.3200 Normal mg/dl Normal GLUCOSE, UR Normal LAB L400.3300 Negative mg/dL Normal BILIRUBIN URINE Negative LAB L400.3400 Negative mg/dl Normal KETONE UR Negative LAB L400.3465 1.002-1.030 Normal SP.GR. DIPSTX 1.010 LAB L400.3550 5.0 - 8.0 pH UR Normal 7.0 LAB L400.3600 Negative mg/dl PROT Normal DIPSTX Negative LAB L400.3700 Normal mg/dl Normal UROBILI Normal LAB L400.3750 Negative Normal NITRITE UR Negative LAB L400.3780 Negative /ul Normal OCCULT BLOOD-UR Negative LAB L400.3800 Negative /ul LEUK Normal ESTERASE Negative LAB L400.4050 0-5 /hpf WBC 0 Normal SEEN LAB L400.4100 0-5 /hpf 0 Normal RBC-UA SEEN LAB L400.4150 5-10 /hpf SQUAM Normal EPI 0-5 SEEN LAB L400.4300 None Seen /hpf 0 Normal BACTERIA SEEN LAB L400.4350 <or=2+ /hpf 0 Normal MUCUS, URINE SEEN Performed By: #### L400.0001 #### [facility] [address] [place], [address] CBC W/DIFF, AUTOMATED Collected: 02/12/2018 Status: C Source: MCCURTAIN 10:50 AM [facility] REPOSITORY TYPE CODE TESTS RESULT OUT OF RANGE REFERENCE UNITS LAB L100.1000 4.4-11.0 K/mm3 High WBC 11.8 LAB L100.1200 4.2-5.4 M/mm3 Low RBC 3.76 LAB L100.1300 12.0-15.0 g/dl Low HGB 10.9 LAB L100.1400 37-47 % Low HCT 31.1 LAB L100.1500 81-99 fL Normal MCV 82.7 LAB L100.1600 27.0-32.0 pg Normal MCH 29.0 LAB L100.1700 32-36 g/gl Normal MCHC 35.0 LAB L100.1810 11.6-14.6 % High RDW CV 16.6 LAB L100.1820 35.1-43.9 fl High RDW SD 49.0 LAB L100.1900 150-450 K/mm3 High PLT 468 LAB L100.2000 6.2-12.0 fl Normal MPV 8.6 LAB L100.2100 47-70 % Normal NEUT% 52.9 LAB L100.2200 19-41 % Normal LY% 28.2 LAB L100.2300 0-10 % High MONO% 13.3 LAB L100.2400 0-5 % Normal EO% 3.9 LAB L100.2500 0-1 % Normal BASO% 0.9 LAB L100.2550 0.0-0.9 % Normal IM GRAN % 0.800 Result Comment: IG% - Immature Granulocytes (promyelocytes, myelocytes and metamyelocytes) > 1% indicates that a LEFT SHIFT is Present. LAB L100.2620 2.0-7.7 X10 3/uL Normal Absolute Neut 6.2 LAB L100.2720 0.83-4.51 X10 3/ul Normal Absolute Lymph 3.32 LAB L100.8600 Normal TARGET CELLS RARE Performed By: #### L100.0100 #### [facility] [address] [place], [place], [address] BASIC METABOLIC Collected: 02/12/2018 Status: F Source: MCCURTAIN PROFILE (BMP) 10:50 AM [facility] REPOSITORY TYPE CODE TESTS RESULT OUT OF RANGE REFERENCE UNITS LAB L501.0100 74-106 mg/dL High GLU 113 Result Comment: Fasting Glucose result from 100 to 125 mg/dL suggests IMPAIRED HOMEOSTASIS per A.D.A. criteria. Please note revised GLUCOSE reference range effective 2017. LAB L501.1000 7-18 mg/dL Low BUN 5 LAB L501.1100 0.55-1.02 mg/dL Normal CREAT,SERUM 0.91 Result Comment: The validity of the calculated GFR AND GFRAA in patients over 70 years has not been determined. Clinical correlation is essential. LAB L501.1110 >60 mL/min Normal EST GFR 69 Result Comment: Non- GFR Calc LAB L501.1115 >60 mL/min Normal EST GFR - AA 83 Result Comment: GFR Calc LAB L501.1255 ml/min Normal Estimated CRCL 57.20 LAB L501.1300 10-20 RATIO Low BUN/CRE 5.5 LAB L501.2200 8.5-10 mg/dL Normal .1 CA 9.4 LAB L501.5300 136-14 mmol/L Low 5 NA 134 LAB L501.5600 3.5-5. mmol/L Normal 1 K 4.0 LAB L501.5900 98-107 mmol/L Normal CL 101 LAB L501.6100 21.0-3 mmol/L Normal 2.0 CO2 25.0 LAB L501.6200 5-15 Normal GAP 8 Performed By: #### L500.2500, L501.4010 #### [facility] [address] [place], [address] TROPONIN-I Collected: 02/12/2018 Status: F Source: MCCURTAIN 10:50 AM [facility] REPOSITORY TYPE CODE TESTS RESULT OUT OF RANGE REFERENCE UNITS LAB L501.4010 <0.045 ng/mL Normal < 0.015 TROPONIN-I Result Comment: TROPONIN-I EXPECTED VALUES <0.045 Negative 0.045 - 0.590 Consistent with Cardiac Damage > OR = 0.600 Critical Value Not every elevated troponin is indicative of ND. These values should be used with clinical judgement in examining the patient's clinical picture for diagnosis. To establish a diagnosis of ND versus myocardial injury, there must be a demonstrated rise and/or fall in the troponin values, in addition to ischemic symptoms, EKG changes, new regional wall motion abnormality, and/or angiographical evidence. PLEASE NOTE: REFERENCE RANGES EDITED 17 Performed By: #### L500.2500, L501.4010 #### [facility] [address] [place], [address] CHEST PA AND LATERAL Observed: 02/12/2018 Status: F Source: MCCURTAIN 10:17 AM [facility] REPOSITORY [facility] Imaging Services [address] [place] [address] Chest PA and Lateral MR#: [id number] Acct: [id number] Name: EMELIA LAI Rep #: [id number] : 1965 F 52 From: Fredy Olmos MD PCP: Orion GONZALES,John Status: REG ER Study: Chest PA and Lateral Date of Exam: 02/12/18 Exam# [id number] Ordering Dr: Felicity Kothari MD STUDY: X-RAY CHEST REASON FOR EXAM: Female, 52 years old. Cough and generalized illness. TECHNIQUE: AP and lateral views of the chest. COMPARISON: Comparison is made with prior examination dated January 17, 2018. FINDINGS: EKG collections are seen. Stable appearance of the diffuse bilateral interstitial fibrosis with areas of confluence and honeycombing worse in the right lung. No acute infiltration is seen. Blunting of both costophrenic angles posteriorly. Normal size heart. Normal mediastinum and jordin. Normal visualized pulmonary arteries. Normal visualized aortic arch and descending thoracic aorta. Normal visualized thoracic spine. Normal visualized ribs, clavicles, and shoulders. There is no demonstrated abnormality of the visualized soft tissue structures of the upper abdomen. RAD/Chest PA and Lateral IMPRESSION: Findings incomplete with diffuse bilateral interstitial fibrosis with honeycombing worse in the right lung. No acute infiltrate is seen. Electronically Signed: Fredy Olmos MD at 11:20 EDT Tel [phone], Service support , CC: John Sears MD; Felicity Kothari MD Obiee Architect: Signed Observed: 02/09/2018 Status: F Source: MCCURTAIN CULTURE, NOSE 10:00 AM [facility] REPOSITORY Comments: PLUS YEAST Gram Stain Gram Stain Very Rare Epithelial cells No White Blood Cells No organisms seen Nasoph. Cult ORGANISM 1: Escherichia coli Amount Growth 1+ ORGANISM 2: Pseudomonas aeroginosa Escherichia coli: REACTION Amoxacillin/Clavulanic Acid $ 4 S Ampicillin $ >=32 R Ampicillin/Sulbactam $ >=32 R Cefazolin $ <=4 S Cefepime $ <=1 S Ceftriaxone $ <=1 S Ciprofloxacin $ >=4 R ESBL - Ertapenim $$$ <=0.5 S Gentamicin $ <=1 S Imipenem *NF <=0.25 S Levofloxacin $ >=8 R Piperacillin/Tazobactam $$ <=4 S Tobramycin $ <=1 S Trimethoprim/Sulfametho $ >=320 R (NF) indicates non-formulary drug at [facility]. Approval by Infectious Disease Specialist required before non-formulary drugs may be ordered and/or dispensed. Pseudomonas aeroginosa: REACTION Cefepime $ 8 S Ceftazidime *NF 8 S Ciprofloxacin $ <=0.25 S Gentamicin $ 4 S Imipenem *NF 1 S Levofloxacin $ 1 S Piperacillin/Tazobactam $$ 32 S Tobramycin $ <=1 S (NF) indicates non-formulary drug at [facility]. Approval by Infectious Disease Specialist required before non-formulary drugs may be ordered and/or dispensed. Performed By: #### M100.0900 #### [facility] [address] [place], [address] DOWNTIME REPORT Observed: 02/06/2018 Status: F Source: M[place]URTAIN 1:30 PM [facility] REPOSITORY [facility] Medical Records Department [address] [facility] [place] [address] Downtime Report MR#: [id number] Acct: [id number] Name: EMELIA LAI Rep #: [id number] : 1965 52 From: Jose G Kelly MD PCP: Orion GONZALES,John Status: DEP This patient was seen during an EMR downtime January 21, 2018 - January 28, 2018. This patient may have a combination of paper and electronic documentation or all paper documentation. All documentation is viewable within the e-chart portion of [facility] for each patient visit. 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 History of COPD and bronchiectasis. Last visit 09-04-17. Poor at follow up. She remains on leflunomide 20mg/day and bactrim TIW. She presents today after being admitted to [facility] at the end of December for cystitis, acute sepsis and acute metabolic encephalopathy. She had hypercapnia as well and placed on a bipap machine during admission. Does not use device at home. No CT of chest was done. She continues to feel fatigued and has poor appetite since hospitalization. She continues to have increased dyspnea. Cough is harsh. She uses albuterol via inhaler but ran out of nebulized meds. Continues to have sinus congestion and drainage. Has not returned to ENT- no showed appts. No recent acute sinus infections or respiratory infections. Current Outpatient Prescriptions: leflunomide (ARAVA) 20 mg tablet Take 1 tablet by mouth once daily. sulfamethoxazole-trimethoprim (BACTRIM DS) 800-160 mg per tablet Take 1 tablet by mouth every Sunday,Sunday,Sunday. nystatin (MYCOSTATIN) 100,000 unit/mL suspension Swish and swallow 1-2 teaspoon(s) (5-10mL) 3 times per day. predniSONE (DELTASONE) 10 mg tablet Take 2 tablets by mouth once daily. budesonide (PULMICORT FLEXHALER) 180 mcg/actuation aepb Inhale 2 Puffs as instructed twice daily. magnesium oxide (MAG-OX) 400 mg tablet Take 400 mg by mouth twice daily. losartan (COZAAR) 50 mg tablet Take 50 mg by mouth once daily. COMPOUNDED PRESCRIPTION Use in each nostril twice daily. [facility] NASAL CREAM. Apply with Qtip. No current facility-administered medications for this visit. PAST MEDICAL HISTORY Diagnosis Date - Allergic rhinitis, cause unspecified Allergic rhinitis - Bronchiectasis - Other diseases of lung, not elsewhere classified SARCOID - PMH - PAST MEDICAL HISTORY OF SEIZURES - PMH - PAST MEDICAL HISTORY OF pleursy PAST SURGICAL HISTORY Procedure Laterality Date - LIGATE FALLOPIAN TUBE Tubal ligation - PULMONARY FUNCTION TEST 04/20/05,04/21/04,02/27/02,09/21 Social History Marital status: Spouse name: Years of education: Number of children: Social History Main Topics Smoking status: Former Smoker Packs/day: 0.25 Years: 20.00 Types: Cigarettes Quit date: 04/13/1994 Smokeless tobacco: Never Used Comment: states'between ages [age] smoked didn't inhale Alcohol use: Yes Comment: OCCASIONAL Drug use: No Comment: eight year hx of crack use has not for several years [facility]C Dyspnea Scale: 1. Not troubled by breathlessness except on strenuous exercise 2. Short of breath when hurrying or walking up a slight hill 3. Walks slower than contemporaries on the level because of breathlessness, or has to stop for breath when walking at own pace 4. Stops for breath after about 100 m or after a few minutes on the level 5. Too breathless to leave the house, or breathless when dressing or undressing Physical Exam: BP 119/85 (BP Site: Left Arm, BP Position: Sitting, BP Cuff Size: Small Adult) Pulse 115 Temp 36.7 ?C (98.1 ?F) (Temporal Artery) Resp 20 Ht 157.5 cm (5' 2) Wt 59 kg (130 lb) SpO2 96% BMI 23.78 kg/m? GEN: Alert, oriented, NAD. Here with . HEENT: Nasal mucosa erythemic with crusting. NECK: Supple, No lymphadenopathy noted. Harsh hacking cough. CHEST: slight wheezing in bases. HEART: RRR, no added sounds noted EXT: No edema, clubbing or cyanosis noted SKIN: No rashes or lesions NEURO: No focal deficits Health Risks: Emelia Lai is not having pain related to the reason for this visit. 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 + chronic bronchiectasis and COPD Poor followup. Continues on leflunomide 20mg/day. Off all prednisone. Hospitalized at [facility] for sepsis with cystitis at the end of December. She had emtabloic encephalopathy and hypercapnia during admission. I am unclear how much is active disease v. Chronic bronchiectasis, COPD, and her chronic sinus disease. Will obtain updated CT chest, updated spirometry and ABD to check CO2 levels. Start combivent via nebulizer. Reschedule ENT follow up. CLAUDIA Diaz, PA-C Supervising Physician: MD JACOB GómezOV Observed: 02/05/2018 Status: COMPLETED Source: [place] 9:55 AM [facility] REPOSITORY Office Visit (PULMMN) EMELIA LAI ([id number]) 1965 F Date Time Provider Department 02/05/18 9:55 AM PAULINO HARLEY PA-C During your visit today, we recorded the following information about you: Temperature Pulse Respiration Blood pressure 98.1 degrees 115/minute 20/minute 119/85 Weight Height 59 kg 1.575 m Paulino Harley PA-C 02/05/2018 2:42 PM Signed Sarcoidosis and Interstitial Lung Disease Program Respiratory [place] FOLLOW UP CLINIC NOTE Emelia Lai is a 52 year old y/o female who presents for f/u visit for sarcoidosis with chronic lung and sinus involvement. History of COPD and bronchiectasis. Last visit 09-04-17. Poor at follow up. She remains on leflunomide 20mg/day and bactrim TIW. She presents today after being admitted to [facility] at the end of December for cystitis, acute sepsis and acute metabolic encephalopathy. She had hypercapnia as well and placed on a bipap machine during admission. Does not use device at home. No CT of chest was done. She continues to feel fatigued and has poor appetite since hospitalization. She continues to have increased dyspnea. Cough is harsh. She uses albuterol via inhaler but ran out of nebulized meds. Continues to have sinus congestion and drainage. Has not returned to ENT- no showed appts. No recent acute sinus infections or respiratory infections. Current Outpatient Prescriptions: leflunomide (ARAVA) 20 mg tablet Take 1 tablet by mouth once daily. sulfamethoxazole-trimethoprim (BACTRIM DS) 800-160 mg per tablet Take 1 tablet by mouth every Sunday,Sunday,Sunday. nystatin (MYCOSTATIN) 100,000 unit/mL suspension Swish and swallow 1-2 teaspoon(s) (5-10mL) 3 times per day. predniSONE (DELTASONE) 10 mg tablet Take 2 tablets by mouth once daily. budesonide (PULMICORT FLEXHALER) 180 mcg/actuation aepb Inhale 2 Puffs as instructed twice daily. magnesium oxide (MAG-OX) 400 mg tablet Take 400 mg by mouth twice daily. losartan (COZAAR) 50 mg tablet Take 50 mg by mouth once daily. COMPOUNDED PRESCRIPTION Use in each nostril twice daily. [facility] NASAL CREAM. Apply with Qtip. No current facility-administered medications for this visit. PAST MEDICAL HISTORY Diagnosis Date - Allergic rhinitis, cause unspecified Allergic rhinitis - Bronchiectasis - Other diseases of lung, not elsewhere classified SARCOID - PMH - PAST MEDICAL HISTORY OF SEIZURES - PMH - PAST MEDICAL HISTORY OF pleursy PAST SURGICAL HISTORY Procedure Laterality Date - LIGATE FALLOPIAN TUBE Tubal ligation - PULMONARY FUNCTION TEST 04/20/05,04/21/04,02/27/02,09/21 Social History Marital status: Spouse name: Years of education: Number of children: Social History Main Topics Smoking status: Former Smoker Packs/day: 0.25 Years: 20.00 Types: Cigarettes Quit date: 04/13/1994 Smokeless tobacco: Never Used Comment: states'between ages [age] smoked didn't inhale Alcohol use: Yes Comment: OCCASIONAL Drug use: No Comment: eight year hx of crack use has not for several years MRC Dyspnea Scale: 1. Not troubled by breathlessness except on strenuous exercise 2. Short of breath when hurrying or walking up a slight hill 3. Walks slower than contemporaries on the level because of breathlessness, or has to stop for breath when walking at own pace 4. Stops for breath after about 100 m or after a few minutes on the level 5. Too breathless to leave the house, or breathless when dressing or undressing Physical Exam: BP 119/85 (BP Site: Left Arm, BP Position: Sitting, BP Cuff Size: Small Adult) Pulse 115 Temp 36.7 ?C (98.1 ?F) (Temporal Artery) Resp 20 Ht 157.5 cm (5' 2) Wt 59 kg (130 lb) SpO2 96% BMI 23.78 kg/m? GEN: Alert, oriented, NAD. Here with . HEENT: Nasal mucosa erythemic with crusting. NECK: Supple, No lymphadenopathy noted. Harsh hacking cough. CHEST: slight wheezing in bases. HEART: RRR, no added sounds noted EXT: No edema, clubbing or cyanosis noted SKIN: No rashes or lesions NEURO: No focal deficits Health Risks: Emelia Lai is not having pain related to the reason for this visit. 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 + chronic bronchiectasis and COPD Poor followup. Continues on leflunomide 20mg/day. Off all prednisone. Hospitalized at [facility] for sepsis with cystitis at the end of December. She had emtabloic encephalopathy and hypercapnia during admission. I am unclear how much is active disease v. Chronic bronchiectasis, COPD, and her chronic sinus disease. Will obtain updated CT chest, updated spirometry and ABD to check CO2 levels. Start combivent via nebulizer. Reschedule ENT follow up. CLAUDIA Diaz, PA-C Supervising Physician: Igor Vincent MD Referring Provider: SELF [[id number]] Allergies As of Date: 02/05/2018 Noted Allergy Reaction AVELOX (MOXIFLOXACIN HCL) 05/21/2006 11 - Vomiting DOXYCYCLINE 02/24/2008 11 - Vomiting GRASS POLLEN 12/13/2010 10 - Anaphylaxis KEFLEX (CEPHALEXIN) 04/11/2006 7 - Swelling Comments: hives Date Reviewed: 02/05/2018 Reviewed by: Gladys Singleton Ma - Fully Assessed Reason for Visit: Follow Up [171] Primary Visit Diagnosis:Sarcoidosis (HCC) [D86.9] Other Visit Diagnoses:Shortness of breath [R06.02] SOB (shortness of breath) [R06.02] Bronchiectasis without complication (HCC) [J47.9] Chronic pansinusitis [J32.4] Order(s):CT CHEST [facility] [9641768] Order #: [id number] FUTURE SPIROMETRY WITH DILATOR IF OBSTRUCTED [3724602] Order #: [id number] FUTURE LUNG DIFFUSION CAPACITY (DLCO) [9600664] Order #: [id number] FUTURE BLOOD GASES ARTERIAL [SQGASA] Order #: [id number] ipratropium-albuterol (COMBIVENT RESPIMAT) 20-100 mcg/actuation mistInhale 1 Ampule as instructed twice daily.Disp: 60 CartridgeRfl: 6 Prescriptions as of 02/05/2018 Sig: IPRATROPIUM 20 MCG-ALBUTEROL * Inhale 1 Ampule as instructed* LEFLUNOMIDE 20 MG TABLET Take 1 tablet by mouth once d* SULFAMETHOXAZOLE 800 MG-TRIME* Take 1 tablet by mouth every * MAGNESIUM OXIDE 400 MG TABLET Take 400 mg by mouth twice da* LOSARTAN 50 MG TABLET Take 50 mg by mouth once andrew* COMPOUNDED PRESCRIPTION Use in each nostril twice da* Problem List As Of Date 02/05/2018 Noted Resolved SARCOIDOSIS [D86.9] INVALID FOR* OTHER LUNG DISEASE NEC [J98.4] More... PMH - PAST MEDICAL HISTORY OF More... ALLERGIC RHINITIS NOS [J30.9] More... Bronchiectasis (HCC) [J47.9] Prescriptions ordered this encounter Disp Refills Start End IPRATROPIUM 20 MCG-ALBUTEROL 100 MCG* 60 C* 6 02/05/2018 Route: INHALATION Sig: Inhale 1 Ampule as instructed twice daily. Medications Discontinued During This Encounter predniSONE (DELTASONE) 10 mg tablet 90 t* 1 12/04/2016 02/05/2018 Route: ORAL Sig: Take 2 tablets by mouth once daily. Disc: Reason for discontinue is not on file. budesonide (PULMICORT FLEXHALER) 180* 1 In* 6 10/02/2016 02/05/2018 Route: INHALATION Sig: Inhale 2 Puffs as instructed twice daily. Disc: Reason for discontinue is not on file. nystatin (MYCOSTATIN) 100,000 unit/m* 300 * 0 10/23/2017 02/05/2018 Sig: Swish and swallow 1-2 teaspoon(s) (5-10mL) 3 times per day. Disc: Reason for discontinue is not on file. Encounter Status:Closed by PAULINO HARLEY PA-C on 02/05/18 12 LEAD ELECTROCARDIOGRAM Observed: 02/04/2018 Status: F Source: [place] 8:40 AM [facility] REPOSITORY [facility] Cardiovascular Services [address] [place] [address] 12 Lead EKG 01/17/18 1547 MR#: [id number] Acct: [id number] Name: EMELIA LAI Rep #: [id number] : 1965 52 From: Mariano Joseph MD Attending Dr: John Dupont DO Status: DIS IN Ordering Dr: Rick Randall MD Date: 01/17/18 Location: [facility] Sex: F AA Admitted: 01/17/18 Test Reason : ALT LOC Blood Pressure : / mmHG Vent. Rate : 110 BPM Atrial Rate : 110 BPM P-R Int : 184 ms QRS Dur : 084 ms QT Int : 344 ms P-R-T Axes : 072 092 047 degrees QTc Int : 465 ms Sinus tachycardia Right atrial enlargement Borderline ECG Confirmed by MARIANO JOSEPH ([id number]), assignment editor ЮЛИЯ KELLY ([id number]) on 01/28/2018 6:33:24 PM Referred By: SARAH Confirmed By:MARIANO JOSEPH 01/28/18 1833 Date Mariano Joseph MD CC: John Dupont DO; John Sears MD; Rick Randall MD Signed CBC W/DIFF, AUTOMATED Collected: 02/03/2018 Status: C Source: [place] 4:34 PM [facility] REPOSITORY TYPE CODE TESTS RESULT OUT OF RANGE REFERENCE UNITS LAB L100.1000 4.4-11.0 K/mm3 High WBC 19.4 LAB L100.1200 4.2-5.4 M/mm3 Low RBC 3.44 LAB L100.1300 12.0-15.0 g/dl Low HGB 9.7 LAB L100.1400 37-47 % Low HCT 27.5 LAB L100.1500 81-99 fL Low MCV 79.9 LAB L100.1600 27.0-32.0 pg Normal MCH 28.2 LAB L100.1700 32-36 g/gl Normal MCHC 35.3 LAB L100.1810 11.6-14.6 % High RDW CV 15.9 LAB L100.1820 35.1-43.9 fl High RDW SD 44.2 LAB L100.1900 150-450 K/mm3 High PLT 488 LAB L100.2000 6.2-12.0 fl Normal MPV 8.6 LAB L100.2100 47-70 % Normal NEUT% 65.8 LAB L100.2200 19-41 % Normal LY% 19.9 LAB L100.2300 0-10 % High MONO% 11.0 LAB L100.2400 0-5 % Normal EO% 2.3 LAB L100.2500 0-1 % Normal BASO% 0.4 LAB L100.2550 0.0-0.9 % Normal IM GRAN % 0.600 Result Comment: IG% - Immature Granulocytes (promyelocytes, myelocytes and metamyelocytes) > 1% indicates that a LEFT SHIFT is Present. LAB L100.2620 2.0-7.7 X10 3/uL High Absolute Neut 12.8 LAB L100.2720 0.83-4.51 X10 3/ul Normal Absolute Lymph 3.87 LAB L100.4500 Normal SMEAR COMMENT SCANNED LAB L100.9900 Normal PATH REV Reviewed Result Comment: Leukocytosis. Normocytic anemia. Thrombocytosis. Clinical correlation necessary. Gerber Mckeon M.D. 02/04/18 AMENDED REPORT 02/04/18 1302 PATH REV previously reported as: December stephanie Performed By: #### L100.0100 #### [facility] [address] [place], [address] BASIC METABOLIC Collected: 02/03/2018 Status: F Source: [place] PROFILE ([facility]) 4:34 PM [facility] REPOSITORY TYPE CODE TESTS RESULT OUT OF RANGE REFERENCE UNITS LAB L501.0100 74-106 mg/dL High GLU 119 Result Comment: Fasting Glucose result from 100 to 125 mg/dL suggests IMPAIRED HOMEOSTASIS per A.D.A. criteria. Please note revised GLUCOSE reference range effective 2017. LAB L501.1000 7-18 mg/dL Normal BUN 8 LAB L501.1100 0.55-1.02 mg/dL Normal CREAT,SERUM 1.02 Result Comment: The validity of the calculated GFR AND GFRAA in patients over 70 years has not been determined. Clinical correlation is essential. LAB L501.1110 >60 mL/min Normal EST GFR 60 Result Comment: Non- GFR Calc LAB L501.1115 >60 mL/min Normal EST GFR - AA 73 Result Comment: GFR Calc LAB L501.1255 ml/min Normal Estimated CRCL 51.03 LAB L501.1300 10-20 RATIO Low BUN/CRE 7.8 LAB L501.2200 8.5-10 mg/dL Normal .1 CA 8.9 LAB L501.5300 136-14 mmol/L Low 5 NA 135 LAB L501.5600 3.5-5. mmol/L Low 1 K 2.8 LAB L501.5900 98-107 mmol/L Normal CL 101 LAB L501.6100 21.0-3 mmol/L Normal 2.0 CO2 23.0 LAB L501.6200 5-15 Normal GAP 11 Performed By: #### L500.2500 #### [facility] [address] [place], [address] CONSULTATION Observed: 01/29/2018 Status: F Source: [place] 10:05 AM [facility] REPOSITORY [facility] Medical Records Department [address] [place] [address] Consultation 01/19/18 1300 MR#: [id number] Acct: [id number] Name: EMELIA LAI Rep #: [id number] : 1965 52 From: Zach Hutchison MD PCP: John Sears MD Status: DIS IN Y Location: [address] Reason for Consult Date of Consultation: 01/19/18 Reason for Consultation: confusion History of Present Illness: The patient is a 52 year old F who reports she was very sleepy for 4 days, was incontinent of urine and stool, and was found by neighbor who then called the squad. she apparently lives mostly alone. today she says she is improved but not baseline. per notes diagnosed with uti. per h AND p:The patient is a 52 year old F with a hx of bronchiectasis, sarcoidosis, COPD, chronic respiratory failure on 4 lpm O2 at home, HTN, who presents to the ER with increased lethargy x 4 days. Her asked if she needed to come to the hospital this morning because she did not look well and seemed tired, however she stated she did not feel she needed to. Her neighbour found her later, more tired and more confused and called the squad. In the ER she seemed lethargic and an ABG was done showing CO2 retention and acidosis and she was placed on bipap. On exam she denied SOB. She states she has not been more SOB and has not had any worsening of her chronic cough. She is lethargic and closing her eyes, but she is responsive to questions. She states she does not want the bipap on. She wears O2 at all times at 4 lpm. She has no fever or chills, no nausea/vomiting/diarrhea/fever/chills/abdominal pain/dysuria. Past Medical History Past Medical History (Chronic Problems): Chronic Problems (Last Updated 10/01/17 @ 07:25 by Ivonne Sunshine) Chronic respiratory failure (Chronic) Chronic cough (Chronic) Bronchiectasis (Chronic) Asthma (Chronic) COPD (chronic obstructive pulmonary disease) (Chronic) Chronic pain (Chronic) Cough (Chronic) HTN (hypertension) (Chronic) Sarcoidosis (Chronic) Medical History: Medical History (Last Updated 10/01/17 @ 07:25 by Ivonne Sunshine) Costochondritis, acute (Acute) M94.0 Acute upper respiratory infection (Acute) J06.9 Chronic cough (Chronic) R05 Bronchiectasis with acute exacerbation (Acute) J47.1 Acute suppurative otitis media (Acute) H66.009 Bronchiectasis (Chronic) J47.9 Acute exacerbation of chronic obstructive pulmonary disease (Acute) J44.1 Asthma (Chronic) J45.909 COPD (chronic obstructive pulmonary disease) (Chronic) J44.9 Chronic pain (Chronic) G89.29 Hypokalemia (Acute) E87.6 Left otitis media (Acute) H66.92 Hypokalemia (Acute) E87.6 Leukocytosis (Acute) D72.829 Chest pain (Acute) R07.9 unknown etiology Pleuritic chest discomfort (Acute) Cough (Chronic) R05 Overdose (Acute) T50.901A HTN (hypertension) (Chronic) I10 Sarcoidosis (Chronic) D86.9 Allergies cephalexin monohydrate [From Keflex] Allergy (Mild, Verified 01/17/18 15:09) Itching doxycycline Adverse Reaction (Verified 01/17/18 15:09) Vomiting moxifloxacin HCl [From Avelox] Adverse Reaction (Verified 01/17/18 15:09) Vomiting Home Medications: Ambulatory Orders Medication Instructions Recorded Albuterol Inhaler [Ventolin Hfa] 1 - 2 puff INHALATION Q6H PRN PRN 09/05/16 Surgical History: Surgical History (Last Updated 10/01/17 @ 07:25 by Ivonne Sunshine) History of lung biopsy (Resolved) Z98.890 History of tubal ligation (Resolved) Z98.51 Surgical History: - - BLTL. 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 Lives: Spouse/ Significant Other Smoking Status: Former smoker Tobacco Use: Cigarettes Alcohol: None Drugs: None - *Family History Maternal History Items: Diabetes, Hypertension, Stroke Paternal History Items: Stroke Review of Systems Constitutional: Denies: Chills, Fever, Weight Change HEENT: Denies: Head Aches, Sinus Congestion, Sinus Drainage Cardiovascular: Denies: Chest Pain, Palpitations Respiratory: Denies: Cough, Shortness of breath at rest, Sputum production Gastrointestinal: Denies: Abdominal Pain, Nausea, Vomiting Genitourinary: Denies: Dysuria Musculoskeletal: Denies: Joint Pain, Joint Tenderness Skin: Denies: Rash, Wounds Neurological: Denies: Numbness, Tingling, Focal weakness Psychiatric: Denies: Anxiety, Depression, Homicidal Ideations, Suicidal Ideations Hematologic/ Lymphatic: Denies: Easy Bruising, Easy Bleeding Patient Problems: Active and Suspected Problems (Last Updated 10/01/17 @ 07:25 by Ivonne Sunshine) Cystitis (Acute) Acute metabolic encephalopathy (Acute) Sepsis (Acute) - Physical Exam General: Alert, Oriented x3, Cooperative HEENT: Atraumatic, PERRLA, EOMI, Normocephalic Neck: Supple, No JVD, Negative Carotid Bruits Lungs: Clear to auscultation, Normal air movement Cardiovascular: Regular rate, No murmurs Abdomen: Bowel Sounds Present, Soft, Non Tender Extremities: No edema, Capillary Refill Less than 3 Seconds Skin: No rashes, No breakdown Musculoskeletal: No Tenderness to Palpation of Joints or Extremities Neurological: Cranial nerves II-XII grossly intact Psych/Mental Status: Normal Affect, Appropriate Vital Signs Temp Pulse Resp BP Pulse Ox 36.7 C 100 15 115/71 100 01/19/18 08:30 01/19/18 08:30 01/19/18 08:30 01/19/18 08:30 01/19/18 08:30 Oxygen Flow Rate (L/min) 4 Oxygen Delivery Method Nasal Cannula Weight: 70.715 kg Body Mass Index (BMI) 27.6 Intake and Output for Last 24 Hours Intake Total 499 / 499 654 / 654 1367 / 1367 Output Total 450 / 450 525 / 525 600 / 600 Balance 49 / 49 129 / 129 767 / 767 Laboratory Tests Past 24 Hrs WBC 22.1 H RBC 3.78 L Hgb 10.4 L Hct 31.3 L MCV 82.8 MCH 27.5 MCHC 33.2 RDW 15.6 H RDW Differential 46.8 H mri reviewed, no acute mra reviewed, normal, no nick aneurysm cta reviewed 02/03: no nick aneurysm Assessment/Plan All Active Problems (Last Updated 10/01/17 @ 07:25 by Ivonne Sunshine) Cystitis (Acute) Acute metabolic encephalopathy (Acute) Sepsis (Acute) History of lung biopsy (Resolved) History of tubal ligation (Resolved) Costochondritis, acute (Acute) Acute upper respiratory infection (Acute) Bronchiectasis with acute exacerbation (Acute) Acute suppurative otitis media (Acute) Acute exacerbation of chronic obstructive pulmonary disease (Acute) Hypokalemia (Acute) Left otitis media (Acute) Hypokalemia (Acute) Leukocytosis (Acute) Chest pain (Acute) Pleuritic chest discomfort (Acute) Overdose (Acute) metabolic encephalopathy, resolved, no evidence of detail manager injury ok to dc from neuro standpoint when medically cleared 01/29/18 1005 <Electronically signed by Zach Hutchison MD> Date Zach Hutchison MD Cosigner Signature (if applicable): Date CC: John Sears MD; Zach Hutchison MD Signed ACUTE ABDOMEN INC Observed: 01/24/2018 Status: F Source: [place] 7:09 PM [facility] REPOSITORY [facility] Imaging Services [address] [place] [id number] Acute Abdomen Inc Chest MR#: [id number] Acct: [id number] Name: EMELIA LAI Rep #: [id number] : 1965 F 52 From: Curt George DO PCP: John Sears MD Status: REG ER Study: Acute Abdomen Inc Chest Date of Exam: 01/23/18 Exam# [id number] Ordering Dr: John Palm DO STUDY: X-RAY - ACUTE ABDOMINAL SERIES REASON FOR EXAM: Female, 52 years old. Abdominal pain TECHNIQUE: Single view of the chest. Supine, and erect view(s) of the abdomen were obtained. COMPARISON: Chest x-ray 01/17/2018 FINDINGS: Cardiac monitoring leads overlie the chest. Chronic appearing changes are seen within both lungs. Normal size heart. Normal mediastinum and jordin. Normal visualized pulmonary arteries. Normal visualized aortic arch and descending thoracic aorta. There is an abundance of fecal material throughout the colon. The soft tissue structures of the abdomen and pelvis are unremarkable. Normal visualized osseous structures. RAD/Acute Abdomen Inc Chest IMPRESSION: There is stool throughout the colon, in amounts suggesting constipation in the appropriate clinical setting. Fibrotic changes throughout both lungs. Please note that this study was performed January 23, 2018, but only now placed in my queue for interpretation, explaining the delay in reporting. Electronically Signed: Curt George DO at 11:09 EDT Tel , Service support , CC: John Palm DO; John Sears MD Obiee Architect: Signed URINALYSIS, COMPLETE Collected: 01/23/2018 Status: F Source: [place] 12:25 PM [facility] REPOSITORY Order Comment: RESULT(S) PREVIOUSLY REPORTED ON MANUAL REQUISITION DURING DOWNTIME. How was Urine Obtained? CLEAN CATCH TYPE CODE TESTS RESULT OUT OF RANGE REFERENCE UNITS LAB L400.3000 Yellow COLOR Normal Yellow LAB L400.3050 Clear Normal CLARITY Clear LAB L400.3200 Normal mg/dl High GLUCOSE, UR 100 LAB L400.3300 Negative mg/dL Normal BILIRUBIN URINE Negative LAB L400.3400 Negative mg/dl Normal KETONE UR Negative LAB L400.3465 1.002-1.030 Normal SP.GR. DIPSTX 1.010 LAB L400.3550 5.0 - 8.0 pH UR Normal 6.5 LAB L400.3600 Negative mg/dl High PROT 15 DIPSTX LAB L400.3700 Normal mg/dl Normal UROBILI Normal LAB L400.3750 Negative Normal NITRITE UR Negative LAB L400.3780 Negative /ul Normal OCCULT BLOOD-UR Negative LAB L400.3800 Negative /ul High LEUK 25 ESTERASE LAB L400.4050 0-5 /hpf WBC 0 Normal SEEN LAB L400.4100 0-5 /hpf 0 Normal RBC-UA SEEN LAB L400.4150 5-10 /hpf SQUAM Normal EPI 0-5 SEEN LAB L400.4300 None Seen /hpf Normal BACTERIA RARE LAB L400.4350 <or=2+ /hpf 0 Normal MUCUS, URINE SEEN Performed By: #### L400.0001 #### [facility] [address] [place], [place], [address] CBC W/DIFF, AUTOMATED Collected: 01/23/2018 Status: C Source: [place] 10:26 AM [facility] REPOSITORY Order Comment: RESULT(S) PREVIOUSLY REPORTED ON MANUAL REQUISITION DURING DOWNTIME. TYPE CODE TESTS RESULT OUT OF RANGE REFERENCE UNITS LAB L100.1000 4.4-11.0 K/mm3 High WBC 19.6 LAB L100.1200 4.2-5.4 M/mm3 Low RBC 3.73 LAB L100.1300 12.0-15.0 g/dl Low HGB 10.6 LAB L100.1400 37-47 % Low HCT 30.4 LAB L100.1500 81-99 fL Normal MCV 81.5 LAB L100.1600 27.0-32.0 pg Normal MCH 28.4 LAB L100.1700 32-36 g/gl Normal MCHC 34.9 LAB L100.1810 11.6-14.6 % High RDW CV 15.0 LAB L100.1820 35.1-43.9 fl Normal RDW SD 43.1 LAB L100.1900 150-450 K/mm3 Normal PLT 329 LAB L100.2000 6.2-12.0 fl Normal MPV 9.3 LAB L100.2100 47-70 % High NEUT% 83.0 LAB L100.2200 19-41 % Low LY% 5.3 LAB L100.2300 0-10 % Normal MONO% 9.0 LAB L100.2400 0-5 % Normal EO% 2.8 LAB L100.2500 0-1 % Normal BASO% 0.4 LAB L100.2550 0.0-0.9 % Normal IM GRAN % 0.200 Result Comment: IG% - Immature Granulocytes (promyelocytes, myelocytes and metamyelocytes) > 1% indicates that a LEFT SHIFT is Present. LAB L100.2620 2.0-7.7 X10 3/uL High Absolute Neut 16.1 LAB L100.2720 0.83-4.51 X10 3/ul Normal Absolute Lymph 1.04 LAB L100.4500 Normal SMEAR COMMENT SCANNED Result Comment: SLIGHT INCREASE IN MONOCYTOSIS LAB L100.5500 ADEQ Normal PLT EST ADEQUATE LAB L100.7300 Normal 1+ ANISO LAB L100.8600 Normal 2+ TARGET CELLS LAB L100.9900 Normal PATH REV Reviewed Result Comment: Neutrophilic leukocytosis. Normocytic anemia. Clinical correlation necessary. Gerber Mckeon M.D. 01/31/18 AMENDED REPORT 01/31/18 0951 PATH REV previously reported as: Sujey brown Performed By: #### L100.0100 #### [facility] [address] [place], [address] COMPREHENSIVE METABOLIC Collected: 01/23/2018 Status: F Source: [facility] 12:00 AM [facility] REPOSITORY Order Comment: RESULT(S) PREVIOUSLY REPORTED ON MANUAL REQUISITION DURING DOWNTIME. TYPE CODE TESTS RESULT OUT OF RANGE REFERENCE UNITS LAB L501.0100 74-106 mg/dL High GLU 178 Result Comment: Fasting Glucose result greater than or equal to 126 mg/dL suggests DIABETES MELLITUS per A.D.A. criteria. Please note revised GLUCOSE reference range effective 2017. LAB L501.1000 7-18 mg/dL High BUN 32 LAB L501.1100 0.55-1.02 mg/dL High CREAT,SERUM 1.29 Result Comment: The validity of the calculated GFR AND GFRAA in patients over 70 years has not been determined. Clinical correlation is essential. LAB L501.1110 >60 mL/min Low EST GFR 46 LAB L501.1115 >60 mL/min Low EST GFR - AA 56 LAB L501.1300 10-20 RATIO High BUN/CRE 24.8 LAB L501.1500 6.4-8.2 g/dL High T PROT 8.4 LAB L501.1800 3.2-5.0 g/dL Normal ALB 3.2 LAB L501.1950 2.2-4.2 g/dL High GLOB 5.2 LAB L501.2000 0.9-2.4 RATIO Low A/G 0.6 LAB L501.2200 8.5-10.1 mg/dL Normal CA 9.2 LAB L501.4100 15-37 U/L High AST 38 LAB L501.4305 45-117 U/L High ALK P 123 LAB L501.4405 13-56 U/L Normal ALT 17 LAB L501.4600 0.20-1.00 mg/dL Normal T BILI 0.40 LAB L501.5300 136-145 mmol/L Low NA 134 LAB L501.5600 3.5-5.1 mmol/L High K 5.7 LAB L501.5900 98-107 mmol/L Normal CL 98 LAB L501.6100 21.0-32.0 mmol/L Normal CO2 30.0 LAB L501.6200 5-15 Normal GAP 6 Performed By: #### L500.4050, L501.2450 #### [facility] [address] [place], [place], [address] LIPASE Collected: 01/23/2018 Status: F Source: [place] 12:00 AM [facility] REPOSITORY Order Comment: RESULT(S) PREVIOUSLY REPORTED ON MANUAL REQUISITION DURING DOWNTIME. TYPE CODE TESTS RESULT OUT OF RANGE REFERENCE UNITS LAB L501.2450 73-393 U/L Normal LIPASE 120 Performed By: #### L500.4050, L501.2450 #### [facility] [address] [place], [address] BASIC METABOLIC Collected: 01/23/2018 Status: F Source: [place] PROFILE (BMP) 12:00 AM [facility] REPOSITORY Order Comment: RESULT(S) PREVIOUSLY REPORTED ON MANUAL REQUISITION DURING DOWNTIME. TYPE CODE TESTS RESULT OUT OF RANGE REFERENCE UNITS LAB L501.0100 74-106 mg/dL High GLU 182 Result Comment: Fasting Glucose result greater than or equal to 126 mg/dL suggests DIABETES MELLITUS per A.D.A. criteria. Please note revised GLUCOSE reference range effective 2017. LAB L501.1000 7-18 mg/dL High BUN 25 LAB L501.1100 0.55-1.02 mg/dL High CREAT,SERUM 1.05 Result Comment: The validity of the calculated GFR AND GFRAA in patients over 70 years has not been determined. Clinical correlation is essential. LAB L501.1110 >60 mL/min Low EST GFR 58 LAB L501.1115 >60 mL/min Normal EST GFR - AA 70 LAB L501.1300 10-20 RATIO High BUN/CRE 23.8 LAB L501.2200 8.5-10.1 mg/dL Normal CA 9.1 LAB L501.5300 136-145 mmol/L Low NA 134 LAB L501.5600 3.5-5.1 mmol/L Normal K 3.6 LAB L501.5900 98-107 mmol/L Normal CL 99 LAB L501.6100 21.0-32.0 mmol/L Normal CO2 28.0 LAB L501.6200 5-15 Normal GAP 7 Performed By: #### L500.2500 #### [facility] [address] [place], [address] DISCHARGE SUMMARY Observed: 01/19/2018 Status: F Source: [place] 3:03 PM [facility] REPOSITORY [facility] Medical Records Department [address] [place] [address] Discharge Summary 01/19/18 1429 MR#: [id number] Acct: [id number] Name: EMELIA LAI Klaudia Rep #: [id number] : 1965 52 From: Gaetano MCHUGH PCP: John Sears MD Status: ADM IN Y Location: [place] [id number] <Gaetano Prince - Last Filed: 01/19/18 14:29> Discharge Date and Diagnosis - Problem List Patient Problems: Active and Suspected Problems (Last Updated 10/01/17 @ 07:25 by Ivonne Sunshine) Cystitis (Acute) Acute metabolic encephalopathy (Acute) Sepsis (Acute) Date of Admission: 01/17/18 Date of Discharge: 01/19/18 - Primary Discharge Diagnosis Active and Suspected Problems (Last Updated 10/01/17 @ 07:25 by Ivonne Sunshine) Acute sepsis 2/2 acute cystitis with e coli and alpha hemolytic organism acute metabolic encephalopathy 2/2 above trichomoniasis chronic hypoxic respiratory failure 2/2 sarcoidosis, bronchiectasis, COPD HTN HLD Dehydration - Secondary Discharge Diagnosis Chronic Problems (Last Updated 10/01/17 @ 07:25 by Ivonne Sunshine) Chronic respiratory failure (Chronic) Chronic cough (Chronic) Bronchiectasis (Chronic) Asthma (Chronic) COPD (chronic obstructive pulmonary disease) (Chronic) Chronic pain (Chronic) Cough (Chronic) HTN (hypertension) (Chronic) Sarcoidosis (Chronic) Hospital Course and Treatment Imaging Results: CT/Brain/Head without Contrast IMPRESSION: No acute intracranial abnormality. RAD/Chest PA and Lateral IMPRESSION: Stable fibrotic changes when compared with 07/24/2017. Resolution of the superimposed airspace opacities that were seen on 10/19/2017. 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 If there is high clinical concern for aneurysm, consider conventional angiography. MRI/MRA Neck WITH and W/O Contrast IMPRESSION: Negative MR angiogram of the neck. Hypoplastic left vertebral artery, normal variation. Echo: Interpretation Summary The estimated ejection fraction is 65 %. Stage 1 diastolic dysfunction. Bubble contrast study negative for right to left interatrial shunt. Unable to estimate RV systolic pressure due to inadequate jet, pulmonary artery pressure probably normal. Compared to echo report dated 05/17/2009, no appreciable changes noted. MRI/Brain W/WO Contrast IMPRESSION: No evidence of mass, edema, or abnormal enhancement. Partially empty sella, incidental finding. Trace fluid in the right mastoid air cells. Consults: Hutchison - neuro Operations: None Procedures: 2-D Echocardiogram Summary of Care Provided: Physical exam on day of discharge: General: Resting comfortably NAD Psych: A/Ox3 normal affect HEENT: PEARRLA AT NC Neck: Supple NT CV: RRR no m/t/r/g/h Resp: CTA Abd: [id number] Soft NT no guarding or rigidity Ext: DP2+= no edema Skin: W/D normal turgor Lymph/Heme: No active bleeding or adenopathy Neuro: CN2-12 intact Hospital course: The patient is a 52 year old F with a hx of chronic hypoxic respiratory failure 2/2 sarcoidosis, bronchiectasis, and COPD on 4 lpm o2 chronically, hx of htn, who presented to the ER with lethargy and confusion, and found to be septic with a UTI and acute metabolic encephalopathy. She was admitted to PCU and started on rocephin for UTI and flagyl as the UA showed trichomonas as well, she was also given IV fluids as she had an elevated BUN and dehydration was suspected. She was briefly on BiPAP in the ER as an ABG showed acidosis and increased CO2 however she had no respiratory complaints and did not want to keep the mask on, and we agreed these were probably chronic changes and trialed her off of it, which she tolerated well. She improved overnight. The following day she did develop sudden onset of double vision so a stroke workup was initiated with MRI brain / MRA head and neck, echo, lipid panel, and neuro consult. The double vision resolved by the following day and the neuro workup was negative. Neurology felt that she had metabolic encephalopathy. She was started on norvasc for her BP and low dose statin for elevated LDL. Urine culture demonstrated e coli resistant to quinolones and an alpha hemolytic organism. She was transitioned to cefdinir and oral flagyl to complete 7 days of therapy. I did advise her to have any partners treated for trich. She was advised to follow up with her PCP. She was discharged home in stable condition. She was somewhat weak, and home care was advised, however she refused. This patient was seen by Gaetano Prince PA-C under the supervision of Doctor Dupont. [] Discharge Diet: Low fat/ Low Cholesterol, 2000 mg Sodium Diet Discharge Activity: Return to Normal Activity Home Medications: Medications to take at Discharge Albuterol Inhaler [Ventolin Hfa] 1 - 2 puff INHALATION Q6H PRN PRN 09/05/16 Losartan Potassium [Cozaar] 50 mg PO BID 09/06/16 HydrOXYzine [Atarax] 50 mg PO Q8 10/12/16 Leflunomide 20 mg PO DAILY 07/31/17 Albuterol Aerosols [Ventolin Aerosols] 2.5 mg INHALATION Q4H PRN PRN 08/13/17 Sulfamethoxazole/Trimethoprim [Sulfamethoxazole-Tmp Ds Tablet] 1 tab PO MOWEFR 08/13/17 Oxymetazoline 0.05% [Afrin (BKC)] 15 spray NASAL BID #1 spray.btl 10/04/17 Cholecalciferol (Vitamin D3) [Vitamin D3] 5,000 unit PO QWEEK 01/17/18 Clonidine HCl 0.2 mg PO Q8 01/17/18 Duloxetine HCl 20 mg PO DAILY 01/17/18 Levocetirizine Dihydrochloride [Xyzal] 5 mg PO DAILY 01/17/18 Mometasone Furoate [Elocon] 15 gm TP BID 01/17/18 Naproxen 500 mg PO BID PRN PRN 01/17/18 Oxycodone [Oxyir] 5 mg PO Q6H PRN PRN 01/17/18 Paroxetine HCl [Paxil] 30 mg PO BID 01/17/18 Prednisone See Taper PO DAILY 01/17/18 Tizanidine HCl 4 mg PO BID 01/17/18 proMETHazine tablet [Phenergan tablet] 12.5 mg PO Q6H PRN PRN 01/17/18 Amlodipine [Norvasc] 5 mg PO DAILY #30 tab 01/19/18 Atorvastatin Calcium [Lipitor] 10 mg PO QHS #30 tab 01/19/18 Cefdinir [Omnicef [equiv]] 300 mg PO Q12H #10 cap 01/19/18 Metronidazole [Flagyl] 500 mg PO BID #10 tab 01/19/18 Following Prescrptions Were Given to Patient: Amlodipine [Norvasc] 5 mg PO DAILY #30 tab Atorvastatin Calcium [Lipitor] 10 mg PO QHS #30 tab Cefdinir [Omnicef [equiv]] 300 mg PO Q12H #10 cap Metronidazole [Flagyl] 500 mg PO BID #10 tab Primary Care Physician: John Sears MD [Primary Care Provider] - Please follow up with your Primary Care Physician in: 1-2 weeks Disposition: Home Minutes spent on discharge:: 40 Patient Condition:: Stable Medical Necessity - Tobacco Use Smoking Status: Former smoker Tobacco Use: Cigarettes Meaningful Use Info Meaningful Use Diagnoses (Choose all that apply): None applicable <John Dupont - Last Filed: 01/19/18 15:02> Discharge Date and Diagnosis - Primary Discharge Diagnosis Active and Suspected Problems (Last Updated 10/01/17 @ 07:25 by Ivonne Sunshine) Cystitis (Acute) Acute metabolic encephalopathy (Acute) Sepsis (Acute) - Secondary Discharge Diagnosis Chronic Problems (Last Updated 10/01/17 @ 07:25 by Ivonne Sunshine) Chronic respiratory failure (Chronic) Chronic cough (Chronic) Bronchiectasis (Chronic) Asthma (Chronic) COPD (chronic obstructive pulmonary disease) (Chronic) Chronic pain (Chronic) Cough (Chronic) HTN (hypertension) (Chronic) Sarcoidosis (Chronic) Hospital Course and Treatment Operations: None Procedures: 2-D Echocardiogram Summary of Care Provided: Patient seen and examined independently. Data reviewed. I agree with the above note by the physician phlebotomy lab assistant. The patient is a 52 year old F presents with confusion and lethargy. Patient was septic and found to have UTI and confused. Patient was put on BiPAP initially and then transition back over to 4 L. Patient was seen in consultation by pulmonology. No new pulmonary needs. Patient was found to have urinary tract infection with E. coli. Patient will be discharged with Ceftin ear and Flagyl for 7 days. Patient also did complain of diplopia on the first. Patient underwent a stroke workup that showed no acute process. Patient was seen by neurology felt this probably with her metabolic encephalopathy and no further neurologic workup necessary. There was mention of a possible aneurysm on MRA but neurology's evaluation did not see that on his review. May been just related with her tortuous vessels. [] Discharge Diet: Low fat/ Low Cholesterol, 2000 mg Sodium Diet Discharge Activity: Return to Normal Activity Disposition: Home Minutes spent on discharge:: 40 Patient Condition:: Stable Meaningful Use Info Meaningful Use Diagnoses (Choose all that apply): None applicable Code Visit Inpatient E AND M: 07662 Disch Hosp 01/19/18 1443 <Electronically signed by Gaetano MCHUGH> Date Gaetano MCHUGH 01/19/18 1503<Electronically signed by John Dupont DO> Cosigner Signature (if applicable): Date John Dupont DO CC: JEISON Prince; John Dupont DO; John Sears MD Signed DISCHARGE INSTRUCTION Observed: 01/19/2018 Status: F Source: [place] 2:06 PM [facility] REPOSITORY [facility] Medical Records Department [address] [place] [address] Instructions for Home/Discharge Instructions 01/19/18 1404 MR#: [id number] Acct: [id number] Name: EMELIA LAI Rep #: [id number] : 1965 52 From: Gaetano MCHUGH PCP: John Sears MD Status: ADM IN - Discharge Diagnoses Current Active Problems: Current Active and Chronic Problems (Last Updated 10/01/17 @ 07:25 by Ivonne Sunshine) Cystitis (Acute) Acute metabolic encephalopathy (Acute) Chronic respiratory failure (Chronic) Sepsis (Acute) You will use the following diet at home:: Cardiac Your food should be the consistency of: Regular Your liquids should be the consistency of: Regular/Thin Discharge Activity: Return to Normal Activity Allergies/Adverse Reactions: Allergies cephalexin monohydrate [From Keflex] Allergy (Mild, Verified 01/17/18 15:09) Itching doxycycline Adverse Reaction (Verified 01/17/18 15:09) Vomiting moxifloxacin HCl [From Avelox] Adverse Reaction (Verified 01/17/18 15:09) Vomiting Medications to take at Discharge Albuterol Inhaler [Ventolin Hfa] 1 - 2 puff INHALATION Q6H PRN PRN 09/05/16 Losartan Potassium [Cozaar] 50 mg PO BID 09/06/16 HydrOXYzine [Atarax] 50 mg PO Q8 10/12/16 Leflunomide 20 mg PO DAILY 07/31/17 Albuterol Aerosols [Ventolin Aerosols] 2.5 mg INHALATION Q4H PRN PRN 08/13/17 Sulfamethoxazole/Trimethoprim [Sulfamethoxazole-Tmp Ds Tablet] 1 tab PO MOWEFR 08/13/17 Oxymetazoline 0.05% [Afrin (BKC)] 15 spray NASAL BID #1 spray.btl 10/04/17 Cholecalciferol (Vitamin D3) [Vitamin D3] 5,000 unit PO QWEEK 01/17/18 Clonidine HCl 0.2 mg PO Q8 01/17/18 Duloxetine HCl 20 mg PO DAILY 01/17/18 Levocetirizine Dihydrochloride [Xyzal] 5 mg PO DAILY 01/17/18 Mometasone Furoate [Elocon] 15 gm TP BID 01/17/18 Naproxen 500 mg PO BID PRN PRN 01/17/18 Oxycodone [Oxyir] 5 mg PO Q6H PRN PRN 01/17/18 Paroxetine HCl [Paxil] 30 mg PO BID 01/17/18 Prednisone See Taper PO DAILY 01/17/18 Tizanidine HCl 4 mg PO BID 01/17/18 proMETHazine tablet [Phenergan tablet] 12.5 mg PO Q6H PRN PRN 01/17/18 Amlodipine [Norvasc] 5 mg PO DAILY #30 tab 01/19/18 Atorvastatin Calcium [Lipitor] 10 mg PO QHS #30 tab 01/19/18 Cefdinir [Omnicef [equiv]] 300 mg PO Q12H #10 cap 01/19/18 Metronidazole [Flagyl] 500 mg PO BID #10 tab 01/19/18 The following prescriptions were given: Amlodipine [Norvasc] 5 mg PO DAILY #30 tab Atorvastatin Calcium [Lipitor] 10 mg PO QHS #30 tab Cefdinir [Omnicef [equiv]] 300 mg PO Q12H #10 cap Metronidazole [Flagyl] 500 mg PO BID #10 tab Primary Care Physician: John Sears MD [Primary Care Provider] - Please follow up with your Primary Care Physician in: 1-2 weeks Proposed Discharge Date: 01/19/18 01/19/18 1406 <Electronically signed by Gaetano MCHUGH> Date Gaetano MCHUGH CC: John Sears MD; Zach Hutchison MD ECHOCARDIOGRAM COMPLETE Observed: 01/19/2018 Status: F Source: [place] 10:19 AM [facility] REPOSITORY [facility] Cardiovascular Services [address] [place] [address] Echo Complete 01/19/18 0801 MR#: [id number] Acct: [id number] Name: EMELIA LAI Rep #: [id number] : 1965 52 From: Mariano Joseph MD Attending Dr: John Dupont DO Status: ADM IN Ordering Dr: John Dupont DO Date: 01/18/18 Location: [facility] Sex: F AA Admitted: 01/17/18 Reason For Study: TIA/CVA Procedure This was a 2D Doppler, Color Flow transthoracic echocardiogram. Exam performed portable in patient room. Left Ventricle Normal size and thickness. The estimated ejection fraction is 65 %. Stage 1 diastolic dysfunction. No regional wall motion abnormalities noted. Right Ventricle Normal size and thickness. Normal systolic function. Atria Normal left atrium. Normal right atrium. Normal atrial septum. Bubble contrast study negative for right to left interatrial shunt. Mitral Valve The mitral valve is structurally normal. No prolapse or stenosis seen. Tricuspid Valve Normal tricuspid valve. Unable to estimate RV systolic pressure due to inadequate jet, pulmonary artery pressure probably normal. Aortic Valve Normal aortic valve. Trisinus/trileaflet aortic valve. Pulmonic Valve Normal pulmonic valve. Great Vessels Normal aortic root. Normal arch. Normal inferior vena cava. Inferior vena cava collapse with sniff. Pericardium/Pleural No pericardial effusion. Medication Performed a rapid injection of agitated mix of 9 cc saline and 1cc air to assess for atrial septal defect. MMode/2D Measurements AND Calculations LVIDd: 3.1 cm IVSd: 1.0 cm Ao root diam: 2.8 cm LVIDs: 2.1 cm LVPWd: 1.2 cm LA dimension: 2.5 cm RVDd: 2.8 cm FS: 33.2 % LAV(MOD-bp): 26.1 ml LA A4 area: 11.3 cm2 RA A4 area: 7.3 cm2 LAV(MOD-bp) Indexed: 15.1 ml/m2 LAV(MOD-sp2): 29.1 ml LAV(MOD-sp4): 23.7 ml Time Measurements MV dec time: 0.20 sec Doppler Measurements AND Calculations MV E max janis: 48.3 cm/sec Lat Peak E' Janis: 9.7 cm/sec Med Peak E' Janis: 6.5 cm/sec MV A max janis: 67.2 cm/sec E/E' lat: 5.0 E/E' med: 7.5 MV E/A: 0.72 MV V2 max: 80.0 cm/sec MV P1/2t max janis: 58.1 cm/sec Ao V2 max: 98.9 cm/sec MV max P.6 mmHg MV P1/2t: 53.6 msec Ao max P.9 mmHg MV V2 mean: 49.4 cm/sec MV dec slope: 317.9 cm/sec2 Ao V2 mean: 61.8 cm/sec MV mean P.1 mmHg MVA(P1/2t): 4.1 cm2 Ao mean P.8 mmHg MV V2 VTI: 13.7 cm Ao V2 VTI: 14.6 cm LV V1 max: 94.5 cm/sec PA V2 max: 86.3 cm/sec LV V1 max P.6 mmHg LV V1 mean P.6 mmHg LV V1 mean: 57.6 cm/sec LV V1 VTI: 14.0 cm Interpretation Summary The estimated ejection fraction is 65 %. Stage 1 diastolic dysfunction. Bubble contrast study negative for right to left interatrial shunt. Unable to estimate RV systolic pressure due to inadequate jet, pulmonary artery pressure probably normal. Compared to echo report dated 05/17/2009, no appreciable changes noted. Ordering Physician: John Dupont Referring Physician: John Sears MD Performed By: Denis Pavon RCS 01/19/18 1018 Date Mariano Joseph MD CC: John Dupont DO; John Sears MD Date Dictated: 01/19/18 0801 Date Transcribed: 01/19/18 1018 Obiee Architect: Signed LIPID PROFILE Collected: 01/19/2018 Status: F Source: [place] 6:40 AM [facility] REPOSITORY TYPE CODE TESTS RESULT OUT OF RANGE REFERENCE UNITS LAB L501.4900 200 mg/dL Normal CHOL 197 Result Comment: <200 mg/dL Desirable 200-240 mg/dL Borderline >240 mg/dL High Risk LAB L501.5000 mg/dL Normal TRIG 61 Result Comment: The drugs N-Acetylcysteine and Metamizole may falsely depress this assay. Serum Triglycerides Reference Interval Normal <150 mg/dL Borderline high 150 - 199 mg/dL High 200 - 499 mg/dL Very High > or = 500 mg/dL LAB L501.6400 mg/dL Normal HDL 49 Result Comment: The drugs N-Acetylcysteine and Metamizole may falsely depress this assay. Reference Range HDL <40 mg/dL Low HDL Cholesterol HDL >or= 60 mg/dL High HDL Cholesterol LAB L501.6500 0-130 mg/dL High LDL 136 LAB L501.6600 5-40 mg/dL Normal VLDL 12 Performed By: #### L500.4100 #### [facility] [address] [place], [address] CBC W/DIFF, AUTOMATED Collected: 01/19/2018 Status: F Source: [place] 6:40 AM [facility] REPOSITORY TYPE CODE TESTS RESULT OUT OF RANGE REFERENCE UNITS LAB L100.1000 4.4-11.0 K/mm3 High WBC 22.1 LAB L100.1200 4.2-5.4 M/mm3 Low RBC 3.78 LAB L100.1300 12.0-15.0 g/dl Low HGB 10.4 LAB L100.1400 37-47 % Low HCT 31.3 LAB L100.1500 81-99 fL Normal MCV 82.8 LAB L100.1600 27.0-32.0 pg Normal MCH 27.5 LAB L100.1700 32-36 g/gl Normal MCHC 33.2 LAB L100.1810 11.6-14.6 % High RDW CV 15.6 LAB L100.1820 35.1-43.9 fl High RDW SD 46.8 LAB L100.1900 150-450 K/mm3 Normal PLT 289 LAB L100.2000 6.2-12.0 fl Normal MPV 9.0 LAB L100.2100 47-70 % High NEUT% 77.8 LAB L100.2200 19-41 % Low LY% 6.3 LAB L100.2300 0-10 % High MONO% 13.3 LAB L100.2400 0-5 % Normal EO% 2.0 LAB L100.2500 0-1 % Normal BASO% 0.4 LAB L100.2550 0.0-0.9 % Normal IM GRAN % 0.200 Result Comment: IG% - Immature Granulocytes (promyelocytes, myelocytes and metamyelocytes) > 1% indicates that a LEFT SHIFT is Present. LAB L100.2620 2.0-7.7 X10 3/uL High Absolute Neut 17.2 LAB L100.2720 0.83-4.51 X10 3/ul Normal Absolute Lymph 1.39 LAB L100.4500 Normal SMEAR COMMENT SCANNED Performed By: #### L100.0100 #### [facility] [address] [place], [address] MRA HEAD ONLY WITHOUT Observed: 01/18/2018 Status: F Source: [place] CONTRAST 4:05 PM [facility] REPOSITORY [facility] Imaging Services [address] [place] [address] MRA Head ONLY without Contrast MR#: [id number] Acct: [id number] Name: EMELIA LAI Rep #: [id number] : 1965 F 52 From: Юлия Bradley MD PCP: oJhn Sears MD Status: ADM IN Study: MRA Head ONLY without Contrast Date of Exam: 01/18/18 Exam# [id number] Ordering Dr: John Dupont DO MRA Head W/O Contrast INDICATION: Diplopia x 4 days. History of sarcoidosis COMPARISON: CTA January 23, 2017 (no high-resolution coronal reformatted images available) TECHNIQUE: MR angiogram of the [place] of [place] and 3-D [id number]-uc-[id number] technique with 3-D reformatted images. FINDINGS: There is symmetric flow related signal in the intracranial portions of the internal carotid arteries with symmetric supplied to the anterior and middle cerebral arteries. At the level of the anterior communicating artery/right A1, there is evidence of a 3 mm small aneurysm. When compared to the available axial images from the CTA, this appears to represent tortuosity of the left proximal A2 segment rather than a true aneurysm. Posterior circulation demonstrates no significant flow related signal in the distal left vertebral artery, suggestive of hypoplastic vessel. There is normal flow related signal in the basilar artery and the basilar artery gives rise to both posterior cerebral arteries. 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 If there is high clinical concern for aneurysm, consider conventional angiography. at 2009 Reported and signed by: Юлия Bradley MD Electronically Signed: Юлия Bradley MD at 20:07 EDT Tel , Service support , CC: John Dupont DO; John Sears MD Obiee Architect: Signed BRAIN W/WO CONTRAST Observed: 01/18/2018 Status: F Source: [place] 4:05 PM [facility] REPOSITORY [facility] Imaging Services [address] [place] [address] Brain W/WO Contrast MR#: [id number] Acct: [id number] Name: EMELIA LAI Rep #: [id number] : 1965 F 52 From: Юлия Bradley MD PCP: John Sears MD Status: ADM IN Study: Brain W/WO Contrast Date of Exam: 01/18/18 Exam# [id number] Ordering Dr: John Dupont DO MR Brain WO/W Contrast INDICATION: Diplopia x 4 days. History of sarcoidosis COMPARISON: None TECHNIQUE: Multiplanar multisequence MRI examination of the brain without and with IV contrast. 6 mL of gadolinium Vistaril given intravenously. FINDINGS: There is no evidence of restricted diffusion to suggest acute ischemia/infarction. Ventricular system is normal in size and symmetric. Cortical sulci, sylvian fissures, and basal cisterns are well seen. Dangelo-white matter junction is normal. Partially empty sella is incidentally noted. Midline structures and craniocervical junction are otherwise within normal limits. The cerebellopontine angles are normal and symmetric. Supra-and infratentorial brain parenchyma demonstrates normal signal. There is no evidence of parenchymal microhemorrhage, mass effect or midline shift, or abnormal extra-axial collection. After contrast administration, there is no abnormal parenchymal or extra-axial enhancement identified. Flow-voids of the [place] of [place] vascularity are well seen. The paranasal sinuses heart clear. Trace fluid is seen in the right mastoid air cells. MRI/Brain W/WO Contrast IMPRESSION: No evidence of mass, edema, or abnormal enhancement. Partially empty sella, incidental finding. Trace fluid in the right mastoid air cells. at 2013 Reported and signed by: Юлия Bradley MD Electronically Signed: Юлия Bradley MD at 20:11 EDT Tel , Service support , CC: John Dupont DO; John Sears MD Obiee Architect: Signed MRA NECK WITH AND W/O Observed: 01/18/2018 Status: F Source: NEGAR CONTRAST 4:05 PM [facility] REPOSITORY [facility] Imaging Services [address] [place] [address] MRA Neck WITH and W/O Contrast MR#: [id number] Acct: [id number] Name: EMELIA LAI Rep #: [id number] : 1965 F 52 From: Юлия Bradley MD PCP: John Sears MD Status: ADM IN Study: MRA Neck WITH and W/O Contrast Date of Exam: 01/18/18 Exam# [id number] Ordering Dr: John Dupont DO MRA Neck WO/W Contrast INDICATION: Diplopia x 4 days. History of sarcoidosis COMPARISON: None TECHNIQUE: MR angiogram of the arterial structures of the neck without and with IV contrast and 2-D and 3-D [id number] technique and 3-D reformatted images. FINDINGS: Common carotid arteries are normal in origin and symmetric in caliber. The bifurcations are unremarkable and there is normal and symmetric appearance of the internal carotid arteries to the level of the skull base. No luminal irregularities are seen. Posterior circulation demonstrates a dominant right vertebral artery and a small caliber left vertebral artery, normal variation. MRI/MRA Neck WITH and W/O Contrast IMPRESSION: Negative MR angiogram of the neck. Hypoplastic left vertebral artery, normal variation. at 2311 Reported and signed by: Юлия Bradley MD Electronically Signed: Юлия Bradley MD at 23:10 EDT Tel , Service support , CC: John Dupont DO; John Sears MD Obiee Architect: Signed CBC W/DIFF, AUTOMATED Collected: 01/18/2018 Status: F Source: NEGAR 5:55 AM [facility] REPOSITORY TYPE CODE TESTS RESULT OUT OF RANGE REFERENCE UNITS LAB L100.1000 4.4-11.0 K/mm3 High WBC 16.6 LAB L100.1200 4.2-5.4 M/mm3 Low RBC 4.14 LAB L100.1300 12.0-15.0 g/dl Low HGB 11.9 LAB L100.1400 37-47 % Low HCT 33.4 LAB L100.1500 81-99 fL Low MCV 80.7 LAB L100.1600 27.0-32.0 pg Normal MCH 28.7 LAB L100.1700 32-36 g/gl Normal MCHC 35.6 LAB L100.1810 11.6-14.6 % Normal RDW CV 14.6 LAB L100.1820 35.1-43.9 fl Normal RDW SD 41.9 LAB L100.1900 150-450 K/mm3 Normal PLT 317 LAB L100.2000 6.2-12.0 fl Normal MPV 9.0 LAB L100.2100 47-70 % High NEUT% 90.7 LAB L100.2200 19-41 % Low LY% 5.2 LAB L100.2300 0-10 % Normal MONO% 3.7 LAB L100.2400 0-5 % Normal EO% 0.0 LAB L100.2500 0-1 % Normal BASO% 0.1 LAB L100.2550 0.0-0.9 % Normal IM GRAN % 0.300 Result Comment: IG% - Immature Granulocytes (promyelocytes, myelocytes and metamyelocytes) > 1% indicates that a LEFT SHIFT is Present. LAB L100.2620 2.0-7.7 X10 3/uL High Absolute Neut 15.1 LAB L100.2720 0.83-4.51 X10 3/ul Normal Absolute Lymph 0.87 Performed By: #### L100.0100 #### [facility] [address] [place], [place], [id number] BASIC METABOLIC Collected: 01/18/2018 Status: F Source: NEGAR PROFILE (BMP) 5:55 AM [facility] REPOSITORY TYPE CODE TESTS RESULT OUT OF RANGE REFERENCE UNITS LAB L501.0100 74-106 mg/dL High GLU 126 Result Comment: Fasting Glucose result greater than or equal to 126 mg/dL suggests DIABETES MELLITUS per A.D.A. criteria. Please note revised GLUCOSE reference range effective 2017. LAB L501.1000 7-18 mg/dL High BUN 30 LAB L501.1100 0.55-1.02 mg/dL Normal CREAT,SERUM 0.71 Result Comment: The validity of the calculated GFR AND GFRAA in patients over 70 years has not been determined. Clinical correlation is essential. LAB L501.1110 >60 mL/min Normal EST GFR 92 Result Comment: Non- GFR Calc LAB L501.1115 >60 mL/min Normal EST GFR - AA 111 Result Comment: GFR Calc LAB L501.1255 ml/min Normal Estimated CRCL 76.67 LAB L501.1300 10-20 RATIO High BUN/CRE 42.2 LAB L501.2200 8.5-10 mg/dL Low .1 CA 8.4 LAB L501.5300 136-14 mmol/L Normal 5 NA 139 LAB L501.5600 3.5-5. mmol/L Normal 1 K 4.4 LAB L501.5900 98-107 mmol/L Normal CL 107 LAB L501.6100 21.0-3 mmol/L Normal 2.0 CO2 24.0 LAB L501.6200 5-15 Normal GAP 8 Performed By: #### L500.2500 #### [facility] [address] [place], [place], [address] HEMOGLOBIN A1C Collected: 01/18/2018 Status: F Source: NEGAR 5:55 AM [facility] REPOSITORY Order Comment: Comments: ok to add on TYPE CODE TESTS RESULT OUT OF RANGE REFERENCE UNITS LAB L501.9985 4.2-6.3 % Normal HGB A1C 4.8 Performed By: #### L501.9985 #### [facility] [address] [place], [address] EMERGENCY DEPARTMENT Observed: 01/17/2018 Status: F Source: NEGAR SUMMARY 11:15 PM [facility] REPOSITORY [facility] Medical Records Department [address] [place] [address] Emergency Department Summary 01/17/18 1547 MR#: [id number] Acct: [id number] Name: EMELIA LAI Rep #: [id number] : 1965 52 From: Rick Randall MD PCP: John Sears MD Status: ADM IN - ER Visit Summary Date of Service: 01/17/18 Chief Complaint: Really sleepy History of Present Illness: The patient is a [address] John Sears. She is a poor informant. She reports that for the past 2 days she has been sleeping more than usual. On review of systems she complains of chills. She has a chronic cough that is unchanged. States that she is short of breath, but it is not severe enough that she has been wearing her home O2. She denies any abdominal pain, nausea, vomiting, or diarrhea. No dysuria or frequency. No rash or headache. She complains of generalized weakness. Physical Examination: Vitals: 97.5, 182/139, 116, 37, 98% on 3 L nasal cannula. General: Well-nourished and well-developed. Head: Normocephalic atraumatic. Neck: Supple, no lymphadenopathy. No JVD. Nontender. Cardiovascular: Tachycardic regular rhythm. No murmurs. Respiratory: No respiratory distress. Clear to auscultation bilaterally. Abdominal: Soft, nontender, nondistended, normal bowel sounds. No guarding, rebound, or peritoneal signs. Back: Nontender. Extremities: Nontender, no edema. Skin: Normal color, no rash. Neurologic: Alert and oriented 3. Cranial nerves II through XII are intact. Normal strength and sensation. Psych: Normal affect. Test Results: EKG is sinus tachycardia [address] changes. Is unchanged since October. CBC is more for a white count of 22.2 with 77 segmented neutrophils and 8 lymphocytes. Her last white count was 28.6 on October 19. Her white count has ranged between 11.8 and 34.4 since 2017. Chem-7 is more for BUN of 43 and glucose of 125. LFTs marked for total protein 8.9 globulin 5.0. Alk phos is 173. Ammonia level is 30. UA has greater than 100 whites and 10-25 red blood cells with 4+ bacteria. Also shows trichomonas. Troponin is negative. CPK is 55. Tox screen is negative. Alcohol level is negative. Lactic acid is 1.9. Chest x-ray shows chronic changes of bronchiectasis and sarcoidosis. It is improved since October of this year. CT brain shows no acute disease. ABG shows a pH of 7.315 with a CO2 of 53.3. Repeat ABG after approximately 90 minutes on BiPAP shows a pH of 7.3 with a CO2 is 55.3. Emergency Department Course and Treatment: Patient had not taken her Cozaar today. She was given that orally. She was also given 20 mg of labetalol IV. Patient was given albuterol and Atrovent aerosols. She is given Solu-Medrol IV. She was given Rocephin IV for the UTI and Flagyl IV for the trichomonas. Despite the fact the patient's CO2 has elevated slightly from her prior ABG the patient is much more awake and conversant. She does not need to be intubated. Treatment Plan: Patient was discussed with Dr. Blankenship. She will be admitted to the hospital for further evaluation and treatment. Disposition: Admitted in improved but serious condition. Impression: 1. UTI. 2. Trichomonas vaginitis. 3. Acute on chronic respiratory failure, on BiPAP. 4. Critical care time 30 minutes. This note was generated with Related Content Database (RCDb) dictation software. It may contain incorrect words, spelling, and punctuation that were not noted in review of the chart prior to signing ED Disposition - Plan for ED Patient: Chief Complaint: Alt LOC What to do if you have Problems For any increased pain, shortness of breath, bleeding, nausea or vomiting, chest pain, or any unexpected problems, contact your Primary Care Provider. Call [facility] ([phone]) or report to the closest Emergency Room. Call 911 if necessary. 01/17/18 4932 <Electronically signed by Rick Randall MD> Date Rick Randall MD Cosigner Signature (If Indicated): Date CC: John Sears MD HISTORY AND PHYSICAL Observed: 01/17/2018 Status: F Source: NEGAR EXAM 7:46 PM [facility] REPOSITORY [facility] Medical Records Department [address] [place] [address] History and Physical 01/17/18 1846 MR#: [id number] Acct: [id number] Name: EMELIA LAI Rep #: [id number] : 1965 52 From: Gaetano MCHUGH PCP: John Sears MD Status: ADM IN Y Location: [place] [id number] <Gaetano Prince - Last Filed: 01/17/18 18:46> Problem List (1) Sepsis Status: Acute (2) Cystitis Status: Acute (3) Acute metabolic encephalopathy Status: Acute (4) Chronic respiratory failure Status: Chronic (5) Bronchiectasis Status: Chronic (6) COPD (chronic obstructive pulmonary disease) Status: Chronic (7) HTN (hypertension) Status: Chronic (8) Sarcoidosis Status: Chronic History of Present Illness Date of Admission: 01/17/18 Chief Complaint: lethargy The patient is a 52 year old F with a hx of bronchiectasis, sarcoidosis, COPD, chronic respiratory failure on 4 lpm O2 at home, HTN, who presents to the ER with increased lethargy x 4 days. Her asked if she needed to come to the hospital this morning because she did not look well and seemed tired, however she stated she did not feel she needed to. Her neighbour found her later, more tired and more confused and called the squad. In the ER she seemed lethargic and an ABG was done showing CO2 retention and acidosis and she was placed on bipap. On exam she denied SOB. She states she has not been more SOB and has not had any worsening of her chronic cough. She is lethargic and closing her eyes, but she is responsive to questions. She states she does not want the bipap on. She wears O2 at all times at 4 lpm. She has no fever or chills, no nausea/vomiting/diarrhea/fever/chills/abdominal pain/dysuria. [] Past Medical History Past Medical History (Chronic Problems): Chronic Problems (Last Updated 10/01/17 @ 07:25 by Ivonne Sunshine) Chronic respiratory failure (Chronic) Chronic cough (Chronic) Bronchiectasis (Chronic) Asthma (Chronic) COPD (chronic obstructive pulmonary disease) (Chronic) Chronic pain (Chronic) Cough (Chronic) HTN (hypertension) (Chronic) Sarcoidosis (Chronic) Medical History: Medical History (Last Updated 10/01/17 @ 07:25 by Ivonne Sunshine) Costochondritis, acute (Acute) M94.0 Acute upper respiratory infection (Acute) J06.9 Chronic cough (Chronic) R05 Bronchiectasis with acute exacerbation (Acute) J47.1 Acute suppurative otitis media (Acute) H66.009 Bronchiectasis (Chronic) J47.9 Acute exacerbation of chronic obstructive pulmonary disease (Acute) J44.1 Asthma (Chronic) J45.909 COPD (chronic obstructive pulmonary disease) (Chronic) J44.9 Chronic pain (Chronic) G89.29 Hypokalemia (Acute) E87.6 Left otitis media (Acute) H66.92 Hypokalemia (Acute) E87.6 Leukocytosis (Acute) D72.829 Chest pain (Acute) R07.9 unknown etiology Pleuritic chest discomfort (Acute) Cough (Chronic) R05 Overdose (Acute) T50.901A HTN (hypertension) (Chronic) I10 Sarcoidosis (Chronic) D86.9 Allergies cephalexin monohydrate [From Keflex] Allergy (Mild, Verified 01/17/18 15:09) Itching doxycycline Adverse Reaction (Verified 01/17/18 15:09) Vomiting moxifloxacin HCl [From Avelox] Adverse Reaction (Verified 01/17/18 15:09) Vomiting Home Medications: Ambulatory Orders Medication Instructions Recorded Albuterol Inhaler [Ventolin Hfa] 1 - 2 puff INHALATION Q6H PRN PRN 09/05/16 Surgical History: Surgical History (Last Updated 10/01/17 @ 07:25 by Ivonne Sunshine) History of lung biopsy (Resolved) Z98.890 History of tubal ligation (Resolved) Z98.51 Surgical History: - - BLTL. 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 Denies: Chills, Fever, Weight Change HEENT: Denies: Head Aches, Sinus Congestion, Sinus Drainage Cardiovascular: Denies: Chest Pain, Palpitations Respiratory: Denies: Cough, Shortness of Breath, Shortness of breath at rest, Shortness of breath upon exertion, Sputum production, Wheezing Gastrointestinal: Denies: Abdominal Pain, Nausea, Vomiting Genitourinary: Denies: Dysuria Musculoskeletal: Denies: Joint Pain, Joint Tenderness Skin: Denies: Rash, Wounds Neurological: Denies: Numbness, Tingling, Focal weakness Psychiatric: Denies: Anxiety, Depression, Homicidal Ideations, Suicidal Ideations Hematologic/ Lymphatic: Denies: Easy Bruising, Easy Bleeding VTE Information - Inpt Only VTE Present on Admission: No VTE Mechan Device Prophylaxis: None VTE Pharm Prophylaxis ordered?: Yes Patient Problems: Active and Suspected Problems (Last Updated 10/01/17 @ 07:25 by Ivonne Sunshine) Cystitis (Acute) Acute metabolic encephalopathy (Acute) Sepsis (Acute) - Physical Exam General: Alert, Oriented x3, Cooperative HEENT: Atraumatic, PERRLA, EOMI, Normocephalic Neck: Supple, No JVD, Negative Carotid Bruits Lungs: Clear to auscultation, Normal air movement, - - shallow Cardiovascular: Regular rate, No murmurs Abdomen: Bowel Sounds Present, Soft, Non Tender Extremities: No edema, Capillary Refill Less than 3 Seconds Skin: No rashes, No breakdown Musculoskeletal: No Tenderness to Palpation of Joints or Extremities Neurological: Cranial nerves II-XII grossly intact Psych/Mental Status: Normal Affect, Appropriate, Alert and oriented to time, place, person, mood and affect Vital Signs Temp Pulse Resp BP Pulse Ox 97.5 F L 88 35 H 168/111 H 98 01/17/18 15:04 01/17/18 18:19 01/17/18 18:19 01/17/18 18:19 01/17/18 18:19 Oxygen Flow Rate (L/min) 3 Oxygen Delivery Method Nasal Cannula Weight: 58.3 kg Body Mass Index (BMI) 24.3 Finger Stick Blood Glucose 156 Laboratory Tests Past 24 Hrs WBC 22.2 H RBC 4.84 Hgb 13.9 Hct 40.2 MCV 83.1 MCH 28.7 MCHC 34.6 RDW 15.4 H WBC RBC Hgb Hct MCV MCH MCHC RDW WBC RBC Hgb Hct MCV MCH MCHC RDW RDW Differential Plt Count MPV Immature Gran % (Auto) Neut % (Auto) Lymph % (Auto) POC Glucose POC Glucose 156 H Assessment/Plan All Active Problems (Last Updated 10/01/17 @ 07:25 by Ivonne Sunshine) Cystitis (Acute) Acute metabolic encephalopathy (Acute) Sepsis (Acute) History of lung biopsy (Resolved) History of tubal ligation (Resolved) Costochondritis, acute (Acute) Acute upper respiratory infection (Acute) Bronchiectasis with acute exacerbation (Acute) Acute suppurative otitis media (Acute) Acute exacerbation of chronic obstructive pulmonary disease (Acute) Hypokalemia (Acute) Left otitis media (Acute) Hypokalemia (Acute) Leukocytosis (Acute) Chest pain (Acute) Pleuritic chest discomfort (Acute) Overdose (Acute) 1. Acute sepsis 2/2 Acute cystitis - criteria met with leukocytosis, + UA, tachypnea, pulse >90. presents with increased lethargy, no dysuria Hampton placed in ER. Lactate negative. Culture pending. + Trichomonas. Continue rocephin and flagyl. Multiple abx allergies. Follow final urine and blood c/s. 2. Acute metabolic encephalopathy - 2/2 cystitis and possibly CO2 retention. Tox screen neg. Hold atarax, oxycodone, tizanidine. 3. Chronic hypoxic respiratory failure - 2/2 bronchiectasis, COPD, and sarcoidosis. placed on bipap in ER 2/2 acidosis and co2 retention, but she does not feel that she needs this, I am not sure how much of this is chronic vs acute. Her CXR is improved since prior, showing bronchiectasis. Continue aerosols, Incentive spirometer. 4. Dehydration - elevated BUN, give IV fluids overnight. 5. HTN in ER - trend and adjust meds as needed. Continue home meds. DVT ppx: lovenox DC planning: PTOT. This patient was seen by Gaetano Prince PA-C under the supervision of Doctor Blankenship. <Idalia Blankenship E - Last Filed: 01/17/18 19:45> History of Present Illness The patient is a 52 year old F [] Past Medical History Medical History: Medical History (Last Updated 10/01/17 @ 07:25 by Ivonne Sunshine) Costochondritis, acute (Acute) M94.0 Acute upper respiratory infection (Acute) J06.9 Chronic cough (Chronic) R05 Bronchiectasis with acute exacerbation (Acute) J47.1 Acute suppurative otitis media (Acute) H66.009 Bronchiectasis (Chronic) J47.9 Acute exacerbation of chronic obstructive pulmonary disease (Acute) J44.1 Asthma (Chronic) J45.909 COPD (chronic obstructive pulmonary disease) (Chronic) J44.9 Chronic pain (Chronic) G89.29 Hypokalemia (Acute) E87.6 Left otitis media (Acute) H66.92 Hypokalemia (Acute) E87.6 Leukocytosis (Acute) D72.829 Chest pain (Acute) R07.9 unknown etiology Pleuritic chest discomfort (Acute) Cough (Chronic) R05 Overdose (Acute) T50.901A HTN (hypertension) (Chronic) I10 Sarcoidosis (Chronic) D86.9 Allergies cephalexin monohydrate [From Keflex] Allergy (Mild, Verified 01/17/18 15:09) Itching doxycycline Adverse Reaction (Verified 01/17/18 15:09) Vomiting moxifloxacin HCl [From Avelox] Adverse Reaction (Verified 01/17/18 15:09) Vomiting Surgical History: Surgical History (Last Updated 10/01/17 @ 07:25 by Ivonne Sunshine) History of lung biopsy (Resolved) Z98.890 History of tubal ligation (Resolved) Z98.51 - Physical Exam Vital Signs Temp Pulse Resp BP Pulse Ox 97.5 F L 88 35 H 168/111 H 98 01/17/18 15:04 01/17/18 18:19 01/17/18 18:19 01/17/18 18:19 01/17/18 18:19 Oxygen Flow Rate (L/min) 3 Oxygen Delivery Method Nasal Cannula Assessment/Plan Hospitalist note: I am seeing this patient in conjunction with Gaetano Prince. I independently seen and examined the patient. History and physical, laboratory data and imaging studies reviewed. I agree with the above admission and treatment plan. Patient was admitted because of lethargy and confusion. At this time, she is sleepy but easily arousable and she was able to answer few questions. According to her daughter who was at the bedside, normally she is awake and alert. The patient denies any pain. Denied abdominal pain, nausea vomiting. Denied fever chills. She has history of chronic respiratory failure secondary to sarcoidosis and bronchiectasis and she has been on home oxygen at 4 L. She has history of COPD and she has been on bronchodilators as well as oxygen. She has history of hypertension and she has been on clonidine and losartan. In the emergency department, her ABG was done and she was found to have pH of 7.30 on PCO2 53. She was started on BiPAP for couple of hours and repeat EKG revealed a PCO2 of 53. The patient herself denies any worsening shortness of breath, cough or sputum production. She thinks that her breathing is at her baseline. Her urine drug screen is negative. Urine analysis revealed cloudy urine, negative for nitrite, positive for leukocyte esterase, there was more than 100 WBCs and 4+ bacteria and also was positive for trichomonas. Chest x-ray revealed bronchiectatic changes in the whole right lung as well as left base and actually x-ray looks much better compared to x-ray from October,. She is being admitted for acute cystitis with sepsis, metabolic encephalopathy and chronic hypercapnic respiratory failure. - Physical Exam General: Lethargic, sleepy, arousable, Cooperative, No apparent distress. HEENT: Atraumatic, PERRLA, EOMI. Neck: Supple, No JVD, Negative Carotid Bruits, Trachea Midline, Thyroid Normal. Lungs: Decreased breath sounds bilateral, bilateral rhonchi, fine crackles more than right side. Cardiovascular: Regular rate, Regular Rhythm, tachycardia, normal S1, Normal S2, PMI Normal. Abdomen: Bowel Sounds Present, Soft, Non Tender, Non-Distended, No Hepato-splenomegaly. Extremities: No clubbing, No cyanosis, No edema Skin: No rashes, No breakdown Neurological: Neuro grossly intact Assessment and plan: #1 sepsis/acute cystitis: Plan for urine culture, blood culture, start IV Rocephin, continue Hampton catheter. #2 encephalopathy: Likely metabolic secondary to infection and sepsis. Also, PCO2 is slightly elevated and pH of 7.30 but she seemed to be a chronic CO2 retainer because of bronchiectasis and sarcoidosis. She denied any worsening shortness of breath. Plan: We will stop BiPAP at this time, keep patient on 4 L, close monitoring of mental status and if her mentation worsened, we need to repeat ABG. #3 Trichomoniasis: Oral Flagyl 500 mg p.o. twice daily for 7 days. #4 chronic respiratory failure: On home oxygen at 4 L. It is secondary to sarcoidosis and bronchiectasis as well as COPD. #5 other chronic medical problems, stable, continue current medications as above. This note was generated with reportbraination software. It may contain incorrect words, spelling, and punctuation that were not noted in checking the note before signing. Code Visit Inpatient E AND M: 98948 Init Hosp L3 01/17/181901 <Electronically signed by Gaetano MCHUGH> Date Gaetano MCHUGH 01/17/181945<Electronically signed by Idalia Blankenship MD> Cosigner Signature: Date (if applicable) Idalia Blankenship MD CC: JEISON Prince; John Sears MD; Idalia Blankenship Signed BLOOD GASES [facility] Collected: 01/17/2018 Status: F Source: NEGAR 5:39 PM [facility] REPOSITORY TYPE CODE TESTS RESULT OUT OF RANGE REFERENCE UNITS LAB L9000.9990 Normal BLD GAS TYPE ART LAB L9001.1000 Normal SITE L Radial LAB L9001.1010 Normal ALFREDO TEST POS LAB L9001.1050 O2 Normal Delivery Dev Bi / C PAP LAB L9001.1070 RR Normal 12 LAB L9001.1074 Normal FI02 30 LAB L9001.1088 Normal IPAP 10 LAB L9001.1090 Normal EPAP 5 LAB L9001.1104 Normal Results To ED LAB L9001.1105 Normal Time Given 1735 LAB L9001.1110 7.35-7.45 Low pH - I-STAT 7.30 LAB L9001.1210 35-45 mmHg High pCO2 - ISTAT 55.3 LAB L9001.1310 75-100 mmHG Normal PO2 I-STAT 96 LAB L9001.2300 22-26 mmol/L High HCO3 ISTAT 27.4 LAB L9001.2400 -2 to +2 mmol/L BE Normal ISTAT 1 LAB L9001.2415 mmol/L Normal TOTAL CO2 29 ISTAT LAB L9001.2425 95-99 % Normal SO2 ISTAT 96 Performed By: #### L9000.0800 #### [facility] Point of Care [address] [place], [place] [address] URINE DRUG SCREEN Collected: 01/17/2018 Status: F Source: NEGAR (Spacious AppTA) 4:35 PM [facility] REPOSITORY TYPE CODE TESTS RESULT OUT OF RANGE REFERENCE UNITS LAB L505.0075 TO BE Normal CONFIRMED Result Comment: CONFIRMATORY TESTING FOR ALL POSITIVE URINE DRUG SCREEN RESULTS WILL ONLY BE SENT OUT UPON PHYSICIAN ORDER. VISTA Urine Drug Screen methods provide only preliminary analytical test results. A more specific alternate chemical method must be used in order to obtain a confirmed analytical result. Gas chromatography/mass spectrometery (GC/MS) is the preferred confirmatory method. Clinical consideration and professional judgement should be applied to any drug of abuse test result, particularly when preliminary positive results are used. URINE TCA TESTING MUST BE ORDERED SEPARATELY. USE TEST MNEMONIC: [facility] LAB L505.5005 VISTA UDS PH 6 Normal LAB L505.5015 <1000 ng/mL AMPHETAMINES Normal NEGATIVE LAB L505.5025 < 200 ng/mL BARBITIURATES Normal NEGATIVE LAB L505.5035 < 200 ng/mL BENZODIAZIPINE Normal NEGATIVE LAB L505.5045 < 300 ng/mL COCAINE Normal NEGATIVE LAB L505.5055 < 500 ng/mL ECSTACY Normal NEGATIVE LAB L505.5065 < 300 ng/mL METHADONE Normal NEGATIVE LAB L505.5075 < 300 ng/mL OPIATES Normal NEGATIVE LAB L505.5085 < 25 ng/mL PCP Normal NEGATIVE LAB L505.5095 < 50 ng/mL THC Normal NEGATIVE Performed By: #### L505.5000 #### [facility] [address] [place], [address] URINALYSIS, COMPLETE Collected: 01/17/2018 Status: F Source: [place] 4:35 PM [facility] REPOSITORY Order Comment: How was Urine Obtained? CATHETER SPECIMEN TYPE CODE TESTS RESULT OUT OF RANGE REFERENCE UNITS LAB L400.3000 Yellow COLOR Normal Yellow LAB L400.3050 Clear Normal CLARITY Cloudy LAB L400.3200 Normal mg/dl Normal GLUCOSE, UR Normal LAB L400.3300 Negative mg/dL Normal BILIRUBIN URINE Negative LAB L400.3400 Negative mg/dl High 50 KETONE UR LAB L400.3465 1.002-1.030 Normal SP.GR. DIPSTX 1.020 LAB L400.3550 5.0 - 8.0 pH UR Normal 6.0 LAB L400.3600 Negative mg/dl High PROT DIPSTX 100 LAB L400.3700 Normal mg/dl Normal UROBILI Normal LAB L400.3750 Negative Normal NITRITE UR Negative LAB L400.3780 Negative /ul High OCCULT BLOOD-UR 150 LAB L400.3800 Negative /ul High LEUK ESTERASE 500 LAB L400.4050 0-5 /hpf WBC Normal >100 SEEN Result Comment: Microscopic field is filled. Other elements may be obscured. LAB L400.4100 0-5 /hpf RBC-UA Normal 10-25 SEEN LAB L400.4150 5-10 /hpf SQUAM EPI Normal 5-10 SEEN LAB L400.4300 None Seen /hpf BACTERIA Normal 4+ LAB L400.4350 <or=2+ /hpf MUCUS, Normal URINE 0 SEEN LAB L400.4900 AMORPHOUS Normal 4+ LAB L400.5100 None Seen /hpf TRICHOMONAS Normal 25-50 SEEN Performed By: #### L400.0001 #### [facility] [address] [place], [address] Observed: 01/17/2018 Status: F Source: NEG[place] CULTURE, URINE 4:35 PM [facility] REPOSITORY Urine Culture ORGANISM 1: Presumptive E. coli [place] Count 50,000-80,000 ORGANISM 2: Enterococcus avium [place] Count >100,000 Presumptive E. coli: REACTION Amoxacillin/Clavulanic Acid $ 4 S Ampicillin $ >=32 R Ampicillin/Sulbactam $ 16 I Cefazolin $ <=4 S Cefepime $ <=1 S Ceftriaxone $ <=1 S Ciprofloxacin $ >=4 R ESBL - Ertapenim $$$ <=0.5 S Gentamicin $ <=1 S Imipenem *NF <=0.25 S Levofloxacin $ >=8 R Nitrofurantoin $ <=16 S Piperacillin/Tazobactam $$ <=4 S Tobramycin $ <=1 S Trimethoprim/Sulfametho $ >=320 R (NF) indicates non-formulary drug at [facility]. Approval by Infectious Disease Specialist required before non-formulary drugs may be ordered and/or dispensed. Enterococcus avium: REACTION Ampicillin $ <=2 S Benzylpenicillin NF 0.25 S Ciprofloxacin $ <=0.5 S Gentamicin SYN-S S Levofloxacin $ 0.5 S Nitrofurantoin $ 64 I Streptomycin $ SYN-S S Tetracycline NF >=16 R Vancomycin $ <=0.5 S (NF) indicates non-formulary drug at [facility]. Approval by Infectious Disease Specialist required before non-formulary drugs may be ordered and/or dispensed. * CLSI guidelines does not recommend testing of cephalosporins. This interpretation is deduced from Beta-lactam/penicillin results. Performed By: #### M100.0650 #### [facility] [place], [address] BLOOD GASES BY CPS Collected: 01/17/2018 Status: F Source: [place] 4:03 PM [facility] REPOSITORY TYPE CODE TESTS RESULT OUT OF RANGE REFERENCE UNITS LAB L9000.9990 Normal BLD GAS TYPE ART LAB L9001.1000 Normal SITE L Radial LAB L9001.1010 Normal ALFREDO TEST POS LAB L9001.1050 O2 Normal Delivery Dev Nasal Can LAB L9001.1055 /min Normal LPM 2.0 LAB L9001.1104 Normal Results To ED LAB L9001.1105 Normal Time Given 1600 LAB L9001.1110 7.35-7.45 Low pH - I-STAT 7.32 LAB L9001.1210 35-45 mmHg High pCO2 - ISTAT 53.3 LAB L9001.1310 75-100 mmHG High PO2 I-STAT 102 LAB L9001.2300 22-26 mmol/L High HCO3 ISTAT 27.2 LAB L9001.2400 -2 to +2 mmol/L BE Normal ISTAT 1 LAB L9001.2415 mmol/L Normal TOTAL CO2 29 ISTAT LAB L9001.2425 95-99 % Normal SO2 ISTAT 97 Performed By: #### L9000.0800 #### [facility] Point of Care [address] [place] [address] CBC W/DIFF, AUTOMATED Collected: 01/17/2018 Status: C Source: NEG[place] 3:40 PM [facility] REPOSITORY TYPE CODE TESTS RESULT OUT OF RANGE REFERENCE UNITS LAB L100.1000 4.4-11.0 K/mm3 High WBC 22.2 LAB L100.1200 4.2-5.4 M/mm3 Normal RBC 4.84 LAB L100.1300 12.0-15.0 g/dl Normal HGB 13.9 LAB L100.1400 37-47 % Normal HCT 40.2 LAB L100.1500 81-99 fL Normal MCV 83.1 LAB L100.1600 27.0-32.0 pg Normal MCH 28.7 LAB L100.1700 32-36 g/gl Normal MCHC 34.6 LAB L100.1810 11.6-14.6 % High RDW CV 15.4 LAB L100.1820 35.1-43.9 fl High RDW SD 46.3 LAB L100.1900 150-450 K/mm3 Normal PLT 368 LAB L100.2000 6.2-12.0 fl Normal MPV 9.1 LAB L100.2100 47-70 % High NEUT% 77.4 LAB L100.2200 19-41 % Low LY% 8.0 LAB L100.2300 0-10 % High MONO% 13.1 LAB L100.2400 0-5 % Normal EO% 0.8 LAB L100.2500 0-1 % Normal BASO% 0.4 LAB L100.2550 0.0-0.9 % Normal IM GRAN % 0.300 Result Comment: IG% - Immature Granulocytes (promyelocytes, myelocytes and metamyelocytes) > 1% indicates that a LEFT SHIFT is Present. LAB L100.2620 2.0-7.7 X10 3/uL High Absolute Neut 17.2 LAB L100.2720 0.83-4.51 X10 3/ul Normal Absolute Lymph 1.77 LAB L100.4500 Normal SMEAR COMMENT Result Comment: MONOCYTOSIS NOTED LAB L100.9900 Normal Reviewed PATH REV Result Comment: Neutrophilic leukocytosis. Clinical correlation necessary. Gerber Mckeon M.D. 01/30/18 Pathologist comment added AMENDED REPORT 01/30/18 1045 PATH REV previously reported as: December Performed By: #### L100.0100, L100.4425 #### [facility] [address] [place], [address] NRBC PANEL Collected: 01/17/2018 Status: F Source: [place] 3:40 PM [facility] REPOSITORY TYPE CODE TESTS RESULT OUT OF RANGE REFERENCE UNITS LAB L100.4450 0-5 % Normal NRBC, FLAGGED 0.3 LAB L100.4455 0-5 10 3/uL Normal NRBC # 0.06 Performed By: #### L100.0100, L100.4425 #### [facility] [address] [place], [address] CPK TOTAL, CREATINE Collected: 01/17/2018 Status: F Source: [place] KINASE 3:40 PM [facility] REPOSITORY TYPE CODE TESTS RESULT OUT OF RANGE REFERENCE UNITS LAB L501.3620 26-192 U/L Normal CPK TOTAL 55 Performed By: #### L501.3620 #### [facility] [address] [place], [address] COMPREHENSIVE METABOLIC Collected: 01/17/2018 Status: F Source: [place] PROFIL 3:40 PM [facility] REPOSITORY TYPE CODE TESTS RESULT OUT OF RANGE REFERENCE UNITS LAB L501.0100 74-106 mg/dL High GLU 125 Result Comment: Fasting Glucose result from 100 to 125 mg/dL suggests IMPAIRED HOMEOSTASIS per A.D.A. criteria. Please note revised GLUCOSE reference range effective 2017. LAB L501.1000 7-18 mg/dL High BUN 43 LAB L501.1100 0.55-1.02 mg/dL Normal CREAT,SERUM 0.98 Result Comment: The validity of the calculated GFR AND GFRAA in patients over 70 years has not been determined. Clinical correlation is essential. LAB L501.1110 >60 mL/min Normal EST GFR 63 Result Comment: Non- GFR Calc LAB L501.1115 >60 mL/min Normal EST GFR - AA 76 Result Comment: GFR Calc LAB L501.1255 ml/min Normal Estimated CRCL 50.67 LAB L501.1300 10-20 RATIO High BUN/CRE 43.7 LAB L501.1500 6.4-8. g/dL High 2 T PROT 8.9 LAB L501.1800 3.2-5. g/dL Normal 0 ALB 3.9 LAB L501.1950 2.2-4. g/dL High 2 GLOB 5.0 LAB L501.2000 0.9-2. RATIO Low 4 A/G 0.8 LAB L501.2200 8.5-10 mg/dL Normal .1 CA 9.8 LAB L501.4100 15-37 U/L Normal AST 18 LAB L501.4305 45-117 U/L High ALK P 173 LAB L501.4405 13-56 U/L Normal ALT 21 LAB L501.4600 0.20-1 mg/dL Normal .00 T BILI 0.60 LAB L501.5300 136-14 mmol/L Normal 5 NA 137 LAB L501.5600 3.5-5. mmol/L Normal 1 K 4.3 LAB L501.5900 98-107 mmol/L Normal CL 100 LAB L501.6100 21.0-3 mmol/L Normal 2.0 CO2 26.0 LAB L501.6200 5-15 Normal GAP 11 Performed By: #### L500.4050, L501.4010 #### [facility] [address] [place], [address] TROPONIN-I Collected: 01/17/2018 Status: F Source: [place] 3:40 PM [facility] REPOSITORY TYPE CODE TESTS RESULT OUT OF RANGE REFERENCE UNITS LAB L501.4010 <0.045 ng/mL Normal < 0.015 TROPONIN-I Result Comment: TROPONIN-I EXPECTED VALUES <0.045 Negative 0.045 - 0.590 Consistent with Cardiac Damage > OR = 0.600 Critical Value Not every elevated troponin is indicative of ND. These values should be used with clinical judgement in examining the patient's clinical picture for diagnosis. To establish a diagnosis of ND versus myocardial injury, there must be a demonstrated rise and/or fall in the troponin values, in addition to ischemic symptoms, EKG changes, new regional wall motion abnormality, and/or angiographical evidence. PLEASE NOTE: REFERENCE RANGES EDITED 17 Performed By: #### L500.4050, L501.4010 #### [facility] [address] [place], [place], [address] LACTIC ACID Collected: 01/17/2018 Status: F Source: NEGAR 3:40 PM [facility] REPOSITORY Order Comment: Yes/No query for Sepsis Lactate Rule Y TYPE CODE TESTS RESULT OUT OF RANGE REFERENCE UNITS LAB L503.6005 0.4-2.0 mmol/L Normal LACTIC ACID 1.9 Performed By: #### L503.6005 #### [facility] [address] [place], [address] AMMONIA Collected: 01/17/2018 Status: F Source: NEGAR 3:40 PM [facility] REPOSITORY TYPE CODE TESTS RESULT OUT OF RANGE REFERENCE UNITS LAB L503.5510 11-32 umol/L Normal AMMONIA 30.0 Performed By: #### L503.5510 #### [facility] [address] [place], [place], [address] ALCOHOL, BLOOD Collected: 01/17/2018 Status: F Source: NEGAR (MEDICAL)-SERUM 3:40 PM [facility] REPOSITORY TYPE CODE TESTS RESULT OUT OF RANGE REFERENCE UNITS LAB L501.9100 mg/dL Normal SERUM 6.0 ETOH Result Comment: The serum:whole blood ethanol ratio is approximately 1.14 and varies slightly with hematocrit. Medical Alcohol reference interval and critical value in non-tolerant individuals; 50 - 100 Impairment 100 Intoxication 100 - 250 Severe Poisoning 250 - 400 Deep/possible fatal coma Performed By: #### L501.9100 #### [facility] [address] [place], [place], [address] Observed: 01/17/2018 Status: F Source: NEGAR CULTURE, BLOOD (WB) 3:40 PM [facility] REPOSITORY BC No growth in 5 days. Performed By: #### M200.1000 #### [facility] [address] [place], [address] Observed: 01/17/2018 Status: F Source: NEGAR CULTURE, BLOOD (WB) 3:40 PM [facility] REPOSITORY BC No growth in 5 days. Performed By: #### M200.1000 #### [facility] [address] [place], [address] BRAIN/HEAD WITHOUT Observed: 01/17/2018 Status: F Source: NEGAR CONTRAST 3:22 PM [facility] REPOSITORY [facility] Imaging Services [address] [place] [address] Brain/Head without Contrast MR#: [id number] Acct: [id number] Name: EMELIA LAI Rep #: [id number] : 1965 F 52 From: Momo Andres MD PCP: John Sears MD Status: REG ER Study: Brain/Head without Contrast Date of Exam: 01/17/18 Exam# [id number] Ordering Dr: Rick Randall MD STUDY: CT BRAIN WITHOUT CONTRAST REASON FOR EXAM: Female, 52 years old. Altered mental status RADIATION DOSAGE (If Supplied By Facility): CTDIvol = ( 44.99 ) mGy, DLP = ( 711.75 ) mGycm TECHNIQUE: Transaxial CT imaging of the brain was performed without administration of intravenous contrast material. Individualized dose optimization techniques were used for this CT. COMPARISON: 01/23/2017 FINDINGS: There is no acute bleed or infarct. There are normal white matter tracts. The ventricles are normal in configuration. There is no hydrocephalus. The visualized paranasal sinuses are clear. The mastoid air cells are well aerated. There is no skull fracture. CT/Brain/Head without Contrast IMPRESSION: No acute intracranial abnormality. Electronically Signed: Momo Andres, at 16:24 EDT Tel , Service support , CC: John Sears MD; Rick Randall MD Obiee Architect: Signed CHEST PA AND LATERAL Observed: 01/17/2018 Status: F Source: NEGAR 3:22 PM [facility] REPOSITORY [facility] Imaging Services [address] [place] [address] Chest PA and Lateral MR#: [id number] Acct: [id number] Name: EMELIA LAI Rep #: [id number] : 1965 F 52 From: Momo Andres MD PCP: John Sears MD Status: REG ER Study: Chest PA and Lateral Date of Exam: 01/17/18 Exam# [id number] Ordering Dr: Rick Randall MD STUDY: X-RAY CHEST REASON FOR EXAM: Female, 52 years old. Shortness of breath TECHNIQUE: Frontal and lateral views of the chest COMPARISON: 10/19/2017 and 08/13/2017 FINDINGS: When compared with 10/19/2017, the previously seen bilateral airspace opacities have resolved. There are stable fibrotic changes when compared with 07/24/2017. There are no pleural effusions. The heart is normal in size. The visualized osseous structures are within normal limits. RAD/Chest PA and Lateral IMPRESSION: Stable fibrotic changes when compared with 07/24/2017. Resolution of the superimposed airspace opacities that were seen on 10/19/2017. Electronically Signed: Momo Andres, at 16:36 EDT Tel , Service support , CC: John Sears MD; Rick Randall MD Obiee Architect: Signed BEDSIDE GLUCOSE Collected: 01/17/2018 Status: F Source: NEGAR 3:20 PM [facility] REPOSITORY TYPE CODE TESTS RESULT OUT OF REFERENCE UNITS RANGE LAB L501.080 70-110 mg/dL High BEDSIDE GLU 156 Result Comment: MANAGEMENT OF PATIENT CARE PER NURSING PROTOCOL Performed By: #### L501.080 #### [facility] Point of Care [address] [place] [address] 12 LEAD ELECTROCARDIOGRAM Observed: 10/23/2017 Status: F Source: NEGAR 4:36 PM [facility] REPOSITORY [facility] Cardiovascular Services [address] [place] [address] 12 Lead EKG 10/19/17 1117 MR#: [id number] Acct: [id number] Name: EMELIA LAI Rep #: [id number] : 1965 51 From: Seth Acevedo MD Attending Dr: Status: DEP ER Ordering Dr: Shaka Mccarthy MD Date: 10/19/17 Location: ED Sex: F AA Admitted: Test Reason : NAUSEA Blood Pressure : / mmHG Vent. Rate : 105 BPM Atrial Rate : 105 BPM P-R Int : 154 ms QRS Dur : 080 ms QT Int : 352 ms P-R-T Axes : 066 098 042 degrees QTc Int : 465 ms Sinus tachycardia Otherwise normal ECG Confirmed by NIDIA GONZALES, SETH ([id number]), assignment editor ЮЛИЯ KELLY ([id number]) on 10/23/2017 4:35:48 PM Referred By: SHARI Confirmed By:SETH ACEVEDO MD 10/23/17 1635 Date Seth Acevedo MD CC: SHAKA MCCARTHY MD; John Sears MD Signed EMERGENCY DEPARTMENT Observed: 10/19/2017 Status: F Source: NEGAR SUMMARY 3:42 PM [facility] Medical Records Department [address] [place] [address] Emergency Department Summary 10/19/17 1109 MR#: [id number] Acct: [id number] Name: EMELIA LAI Rep #: [id number] : 1965 51 From: Shaka Mccarthy MD PCP: John Sears MD Status: REG ER - ER Visit Summary Date of Service: 03/02/18 Chief Complaint: Abdominal pain History of Present Illness: The patient is a 51 F presenting with 2 days of gradual onset vomiting followed by right lower quadrant pain that is not worse. Also dyspnea and nonproductive cough for the past week, also gradual in onset. History of pulmonary sarcoidosis. States she had a normal bowel movement today, no blood, diarrhea, constipation. Has had no diarrhea with this. No known sick contacts with similar. No known fevers. She had a bilateral tubal ligation in the past, no other abdominal surgeries. Physical Examination: Acute distress. Abdomen tender in the right lower quadrant, no guarding or rebound tenderness. Positive so as sign, negative obturator, Rovsing signs. No other areas of abdominal tenderness. No distention. Hypoactive bowel sounds. Lungs are diminished throughout, inspiratory wheezes, no rhonchi or rales or respiratory distress. No peripheral edema. No JVD. Test Results: Leukocytosis of 28, she has had white counts higher than this in the past. She has chronic leukocytosis. Mild creatinine elevation of 1.3. Urine shows 500 leukocyte esterase, some white blood cells, but more epithelials. Negative nitrite. Sent for culture. CT abdomen/pelvis negative for acute abnormality. Emergency Department Course and Treatment: Since the hospital is out of [facility], patient was given Phenergan in addition to some morphine for the pain. On reevaluation she feels better and is tolerating oral fluids without difficulty. She provides additional history, saying that because of her upper respiratory symptoms, she was prescribed Augmentin shortly before the symptoms started by her sarcoidosis/pulmonary clinic in [facility]. She states that she took Augmentin the first day and felt a little nauseated, but the next day she started vomiting uncontrollably and has not taken the medicine since. She has no urinary symptoms, so instead of starting her on another antibiotic, given the negative chest x-ray, I advised supportive care along with prn Phenergan, and following up at the pulmonary clinic, discontinuing the Augmentin. I will not place her on a new antibiotic at this time given her GI reaction to this and other antibiotics in the past, unless the urine culture returns positive. She is asking for weapons electrical engineering officer that is closer to see. I will give her a referral to [facility] pulmonology. Treatment Plan: Prn promethazine, f/u Disposition: Discharge home Impression: Acute gastritis Right lower quadrant abdominal muscular strain Interstitial lung disease Pulmonary sarcoidosis This note was generated with Related Content Database (RCDb) dictation software. It may contain incorrect words, spelling, and punctuation that were not noted in review of the chart prior to signing ED Disposition - Plan for ED Patient: Disposition: Home or Assisted Living Chief Complaint: Nausea/Vomiting Instructions: ED Gastritis Prescriptions: ProMETHAzine [Phenergan] 25 mg PO Q6H PRN PRN #12 tab PRN Reason: Nausea Referrals: Chris White MD [NON-STAFF] - ([facility] pulmonology) John Sears MD [Primary Care Provider] - Additional Instructions: Discontinue Augmentin. Contact your sarcoidosis specialist who prescribed the medication for further instructions regarding possible new prescription. What to do if you have Problems For any increased pain, shortness of breath, bleeding, nausea or vomiting, chest pain, or any unexpected problems, contact your Primary Care Provider. Call [facility] ([phone]) or report to the closest Emergency Room. Call 911 if necessary. 10/19/17 1542 <Electronically signed by Shaka Mccarthy MD> Date Shaka Mccarthy MD Cosigner Signature (If Indicated): Date CC: John Sears MD; Chris White MD URINALYSIS, COMPLETE Collected: 10/19/2017 Status: F Source: NEGAR 12:45 PM [facility] REPOSITORY Order Comment: Order Date: 10/19/17 How was Urine Obtained? CLEAN CATCH TYPE CODE TESTS RESULT OUT OF RANGE REFERENCE UNITS LAB L400.3000 Yellow COLOR Normal Yellow LAB L400.3050 Clear Normal CLARITY Sl. Cloudy LAB L400.3200 Normal mg/dl Normal GLUCOSE, UR Normal LAB L400.3300 Negative mg/dL Normal BILIRUBIN URINE Negative LAB L400.3400 Negative mg/dl Normal KETONE UR Negative LAB L400.3465 1.002-1.030 Normal SP.GR. DIPSTX 1.010 LAB L400.3550 5.0 - 8.0 pH UR Normal 6.5 LAB L400.3600 Negative mg/dl High PROT 30 DIPSTX LAB L400.3700 Normal mg/dl Normal UROBILI Normal LAB L400.3750 Negative Normal NITRITE UR Negative LAB L400.3780 Negative /ul High 10 OCCULT BLOOD-UR LAB L400.3800 Negative /ul High LEUK ESTERASE 500 LAB L400.4050 0-5 /hpf WBC Normal 10-25 SEEN LAB L400.4100 0-5 /hpf 0 Normal RBC-UA SEEN LAB L400.4150 5-10 /hpf SQUAM Normal EPI 25-50 SEEN LAB L400.4300 None Seen /hpf 0 Normal BACTERIA SEEN LAB L400.4350 <or=2+ /hpf 0 Normal MUCUS, URINE SEEN Performed By: #### L400.0001 #### [facility] [address] [place], [address] Observed: 10/19/2017 Status: F Source: [place] CULTURE, URINE 12:45 PM [facility] REPOSITORY Urine Culture Probable contaminants. Below infection level. ORGANISM 1: Mixed Gram Positive Organisms [place] Count 1000-10,000 Performed By: #### M100.0650 #### [facility] [address] [place], [address] COMPREHENSIVE METABOLIC Collected: 10/19/2017 Status: F Source: NEGAR PROFIL 11:10 AM [facility] REPOSITORY Order Comment: 'TROP' Serial specimen #1, #2, #3, or #4: 1 TYPE CODE TESTS RESULT OUT OF RANGE REFERENCE UNITS LAB L501.0100 74-106 mg/dL High GLU 121 Result Comment: Fasting Glucose result from 100 to 125 mg/dL suggests IMPAIRED HOMEOSTASIS per A.D.A. criteria. Please note revised GLUCOSE reference range effective 2017. LAB L501.1000 7-18 mg/dL Normal BUN 15 LAB L501.1100 0.55-1.02 mg/dL High CREAT,SERUM 1.24 Result Comment: The validity of the calculated GFR AND GFRAA in patients over 70 years has not been determined. Clinical correlation is essential. LAB L501.1110 >60 mL/min Low EST GFR 48 Result Comment: Non- GFR Calc LAB L501.1115 >60 mL/min Low EST GFR - AA 58 Result Comment: GFR Calc LAB L501.1255 ml/min Normal Estimated CRCL 42.45 LAB L501.1300 10-20 RATIO Normal BUN/CRE 12.1 LAB L501.1500 6.4-8. g/dL Normal 2 T PROT 8.0 LAB L501.1800 3.2-5. g/dL Low 0 ALB 3.0 LAB L501.1950 2.2-4. g/dL High 2 GLOB 5.0 LAB L501.2000 0.9-2. RATIO Low 4 A/G 0.6 LAB L501.2200 8.5-10 mg/dL Normal .1 CA 8.8 LAB L501.4100 15-37 U/L Normal AST 18 LAB L501.4305 45-117 U/L Normal ALK P 105 LAB L501.4405 13-56 U/L Low ALT 11 Result Comment: Please note revised ALT reference range effective 2017. LAB L501.4600 0.20-1.00 mg/dL Normal T BILI 0.60 LAB L501.5300 136-145 mmol/L Low NA 134 LAB L501.5600 3.5-5.1 mmol/L Normal K 3.5 LAB L501.5900 98-107 mmol/L Normal CL 100 LAB L501.6100 21.0-32.0 mmol/L Normal CO2 26.0 LAB L501.6200 5-15 Normal GAP 8 Performed By: #### L500.4050, L501.4010 #### [facility] [address] [place], [place], [address] TROPONIN-I Collected: 10/19/2017 Status: F Source: [place] 11:10 AM [facility] REPOSITORY Order Comment: 'TROP' Serial specimen #1, #2, #3, or #4: 1 TYPE CODE TESTS RESULT OUT OF RANGE REFERENCE UNITS LAB L501.4010 <0.06 ng/mL High 0.09 TROPONIN-I Result Comment: TROPONIN-I EXPECTED VALUES <0.05 NEGATIVE 0.06 - 0.59 AT RISK OF ND > OR = 0.60 SUGGEST ND Performed By: #### L500.4050, L501.4010 #### [facility] [address] [place], [address] CBC W/DIFF, AUTOMATED Collected: 10/19/2017 Status: F Source: NEGAR 11:10 AM [facility] REPOSITORY TYPE CODE TESTS RESULT OUT OF RANGE REFERENCE UNITS LAB L100.1000 4.4-11.0 K/mm3 High WBC 28.6 LAB L100.1200 4.2-5.4 M/mm3 Low RBC 4.19 LAB L100.1300 12.0-15.0 g/dl Normal HGB 12.5 LAB L100.1400 37-47 % Low HCT 36.1 LAB L100.1500 81-99 fL Normal MCV 86.2 LAB L100.1600 27.0-32.0 pg Normal MCH 29.8 LAB L100.1700 32-36 g/gl Normal MCHC 34.6 LAB L100.1810 11.6-14.6 % Normal RDW CV 14.3 LAB L100.1820 35.1-43.9 fl High RDW SD 44.4 LAB L100.1900 150-450 K/mm3 Normal PLT 314 LAB L100.2000 6.2-12.0 fl Normal MPV 10.5 LAB L100.2100 47-70 % High NEUT% 90.6 LAB L100.2200 19-41 % Low LY% 4.6 LAB L100.2300 0-10 % Normal MONO% 4.3 LAB L100.2400 0-5 % Normal EO% 0.1 LAB L100.2500 0-1 % Normal BASO% 0.1 LAB L100.2550 0.0-0.9 % Normal IM GRAN % 0.300 Result Comment: IG% - Immature Granulocytes (promyelocytes, myelocytes and metamyelocytes) > 1% indicates that a LEFT SHIFT is Present. LAB L100.2620 2.0-7.7 X10 3/uL High Absolute Neut 25.9 LAB L100.2720 0.83-4.51 X10 3/ul Normal Absolute Lymph 1.31 LAB L100.4500 Normal SMEAR COMMENT COMMENT Result Comment: SLIDE SCANNED - NEUTROPHILIA NOTED. Performed By: #### L100.0100, L100.4425 #### [facility] [address] [place], [address] NRBC PANEL Collected: 10/19/2017 Status: F Source: NEGAR 11:10 AM [facility] REPOSITORY TYPE CODE TESTS RESULT OUT OF RANGE REFERENCE UNITS LAB L100.4450 0-5 % Normal NRBC, FLAGGED 0.3 LAB L100.4455 0-5 10 3/uL Normal NRBC # 0.08 Performed By: #### L100.0100, L100.4425 #### [facility] [address] [place], [address] ABDOMEN/PELVIS W IV CONT Observed: 10/19/2017 Status: F Source: MCCURTAIN ONLY 11:08 AM [facility] REPOSITORY [facility] Imaging Services [address] [place] [address] Abdomen/Pelvis W IV Cont ONLY MR#: [id number] Acct: [id number] Name: EMELIA LAI Rep #: [id number] : 1965 F 51 From: Fredy Olmos MD PCP: Orion GONZALES,John Status: REG ER Study: Abdomen/Pelvis W IV Cont ONLY Date of Exam: 10/19/17 Exam# [id number] Ordering Dr: Shaka Mccarthy MD STUDY: CT ABDOMEN AND PELVIS WITH CONTRAST REASON FOR EXAM: Female, 51 years old. Right lower quadrant pain and hypotension. Patient has a history of sarcoidosis. RADIATION DOSAGE (If Supplied By Facility): CTDIvol = ( 13.15 ) mGy, DLP = ( 653.14 ) mGycm TECHNIQUE: Transaxial images were obtained from the dome of the diaphragm to the symphysis pubis without oral contrast. 100ML ml of Isovue 300 contrast was administered. Sagittal and coronal images were reconstructed. Individualized dose optimization techniques were used for this CT. COMPARISON: Comparison is made with prior study dated November 02, 2015. FINDINGS: Once again, is evidence of interstitial fibrosis at the lung bases with multiple cystic changes in keeping with bronchiectasis and honeycombing. There is superimposed groundglass appearance most likely secondary to the progressive scarring. The visualized portions of the heart are within normal limits. Normal liver. Normal gallbladder and extrahepatic biliary system. Normal spleen. Normal pancreas. Normal bilateral adrenal glands. There are 2 small cysts in the upper midportion of the right kidney. Normal left kidney. Normal visualized stomach. Normal small intestine. Normal colon. The appendix is visualized and appears normal. There is scattered atherosclerotic calcification of the abdominal aorta, without a demonstrated aneurysm. Normal inferior vena cava. Normal retroperitoneum. Normal urinary bladder. Normal abdominal wall. Disc space narrowing and disc degeneration at the L5-S1 level. CT/Abdomen/Pelvis W IV Cont ONLY IMPRESSION: Chronic changes at the lung bases. Stable small cysts in the right kidney. No acute abnormality is seen. Electronically Signed: Fredy Olmos MD at 13:07 EST Tel [phone], Service support , CC: SHAKA MCCARTHY MD; John Sears MD Obiee Architect: Signed CHEST PA AND LATERAL Observed: 10/19/2017 Status: F Source: MCCURTAIN 11:08 AM [facility] REPOSITORY [facility] Imaging Services [address] [place] [address] Chest PA and Lateral MR#: [id number] Acct: [id number] Name: EMELIA LAI Rep #: [id number] : 1965 F 51 From: Fredy Olmos MD PCP: John Sears MD Status: REG ER Study: Chest PA and Lateral Date of Exam: 10/19/17 Exam# [id number] Ordering Dr: Shaka Mccarthy MD STUDY: X-RAY CHEST REASON FOR EXAM: Female, 51 years old. Shortness of breath. TECHNIQUE: PA and lateral views of the chest. COMPARISON: Comparison is made with prior study dated August 13, 2017. FINDINGS: EKG electrodes are seen. Benign was evidence of diffuse bilateral airspace disease superimposed on chronic interstitial fibrosis with honeycombing. There is no demonstrated pleural abnormality. Normal size heart. Mildly enlarged bilateral jordin most likely representing small lymph nodes. Normal visualized pulmonary arteries. Normal visualized aortic arch and descending thoracic aorta. Normal visualized thoracic spine. Normal visualized ribs, clavicles, and shoulders. There is no demonstrated abnormality of the visualized soft tissue structures of the upper abdomen. RAD/Chest PA and Lateral IMPRESSION: New airspace disease in both lungs superimposed on chronic interstitial fibrosis with honeycombing. Electronically Signed: Fredy Olmos MD at 13:14 EST Tel [phone], Service support , CC: SHAKA MCCARTHY MD; John Sears MD Obiee Architect: Signed EMERGENCY DEPARTMENT Observed: 10/04/2017 Status: F Source: MCCURTAIN SUMMARY 11:08 AM [facility] Medical Records Department [address] [place] [address] Emergency Department Summary 10/04/17 1102 MR#: [id number] Acct: [id number] Name: EMELIA LAI Rep #: [id number] : 1965 51 From: Silverio Desouza MD PCP: Orion GONZALES,John Status: PRE ER - ER Visit Summary Date of Service: 10/04/17 Chief Complaint: Headache and nasal congestion that started yesterday History of Present Illness: The patient is a 51 F who presents with frontal headache, nasal congestion and hoarse voice that started yesterday. She does complain of cough that is productive. She denies fever, chills night sweats. She denies photophobia, blurred vision, loss of vision or double vision. Denies earache. She denies chest pain or shortness of breath. She denies any leg pain, swelling or discoloration. She denies rash. She has a history of sarcoidosis and hypertension. Physical Examination: Signs are remarkable blood pressure 130/91, heart rate 101 respiratory 22. She does not appear in any distress. There is no frontal, ethmoid or maxillary sinus tenderness. Nares are remarkable for clear drainage. TMs normal. Posterior pharynx reveals postnasal drainage. Uvula is midline. There is no exudate. Trachea is midline with no stridor. Voice is hoarse. Lungs are clear to auscultation with good movement of air bilateral. Heart is rapid and regular without murmur, gallop or rub There is no asymmetry, swelling, discoloration, leg vein distention, palpable cords or tenderness along the distribution of the deep venous system. Test Results: None Emergency Department Course and Treatment: Patient was told she has an upper respiratory infection and her discomfort is from sinus pressure. She does not have a sinus infection. Treatment Plan: Decongestant/nasal spray as instructed on the vial. Disposition: Discharged to home Impression: 1. Acute viral upper respiratory infection 2. Sinus pressure headache This note was generated with Related Content Database (RCDb) dictation software. It may contain incorrect words, spelling, and punctuation that were not noted in review of the chart prior to signing ED Disposition - Plan for ED Patient: Disposition: Home or Assisted Living Chief Complaint: Headache Instructions: ED Headache Sinus, ED URI Viral Prescriptions: Oxymetazolone 0.05% [Afrin (BKC)] 15 spray NASAL BID #1 spray.btl Referrals: John Sears MD [Primary Care Provider] - 10-14 Days if not better Additional Instructions: Your prescription was electronically transmitted to [facility] What to do if you have Problems For any increased pain, shortness of breath, bleeding, nausea or vomiting, chest pain, or any unexpected problems, contact your Primary Care Provider. Call [facility] ([phone]) or report to the closest Emergency Room. Call 911 if necessary. 10/04/17 1108 <Electronically signed by Silverio Desouza MD> Date Silverio Desouza MD Cosigner Signature (If Indicated): Date CC: John Sears MD 12 LEAD ELECTROCARDIOGRAM Observed: 09/13/2017 Status: F Source: NEGAR 12:04 PM [facility] Cardiovascular Services [address] [place] [address] 12 Lead EKG 09/11/17 1007 MR#: [id number] Acct: [id number] Name: EMELIA LAI Rep #: [id number] : 1965 51 From: Mariano Joseph MD Attending Dr: Status: DEP ER Ordering Dr: Elsa Sue MD Date: 09/11/17 Location: ED Sex: F AA Admitted: Test Reason : CP Blood Pressure : / mmHG Vent. Rate : 085 BPM Atrial Rate : 085 BPM P-R Int : 184 ms QRS Dur : 084 ms QT Int : 372 ms P-R-T Axes : 073 069 049 degrees QTc Int : 442 ms Normal sinus rhythm Normal ECG Confirmed by MARIANO JOSEPH ([id number]), assignment editor ЮЛИЯ KELLY ([id number]) on 09/13/2017 12:03:47 PM Referred By: HEATHER Confirmed By:MARIANO JOSEPH 09/13/17 1203 Date Mariano Joseph MD CC: John Sears MD Signed DISCHARGE INSTRUCTION Observed: 09/11/2017 Status: F Source: MCCURTAIN 12:05 PM [facility] Medical Records Department [address] [place] [address] Discharge Instruction 09/11/17 1202 MR#: [id number] Acct: [id number] Name: EMELIA LAI Rep #: [id number] : 1965 51 From: Elsa Sue MD PCP: John Sears MD Status: REG ER ED Disposition - Plan for ED Patient: Chief Complaint: Chest Pain Instructions: ED Chest Pain Pleurisy Prescriptions: Lidocaine [Lidoderm Patch] 1 patch TOPICAL DAILY #5 patch Referrals: John Sears MD [Primary Care Provider] - What to do if you have Problems For any increased pain, shortness of breath, bleeding, nausea or vomiting, chest pain, or any unexpected problems, contact your Primary Care Provider. Call [facility] ([phone]) or report to the closest Emergency Room. Call 911 if necessary. 09/11/17 1205 <Electronically signed by Elsa Sue MD> Date Elsa Sue MD Cosigner Signature (If Indicated): Date CC: John Sears MD EMERGENCY DEPARTMENT Observed: 09/11/2017 Status: F Source: MCCURTAIN SUMMARY 12:02 PM [facility] REPOSITORY [facility] Medical Records Department [address] [place] [address] Emergency Department Summary 09/11/17 1009 MR#: [id number] Acct: [id number] Name: EMELIA LAI Rep #: [id number] : 1965 51 From: Elsa Sue MD PCP: John Sears MD Status: REG ER - ER Visit Summary Date of Service: 09/11/17 Chief Complaint: Chest pain History of Present Illness: The patient is a 51 F presenting with chest pain 2-1/2 weeks. Patient states this has been constant all day, every day. She saw her primary care physician 2.5 weeks ago who diagnosed her with pleurisy. He sent her to her sarcoidosis specialist in [place] Dr. Harley. She has a CT scheduled for later this week. She is concerned due to the persistence of the pain. She has been taking ibuprofen, oxycodone. She complains of sharp chest pain which is worsened with coughing and breathing. She has a history of sarcoidosis. She is not a smoker. No other complaints. Physical Examination: Vitals are stable. Patient is afebrile. Alert no acute distress. HEENT exam is unremarkable. Neck is supple. Lungs are clear and equal bilaterally. Right chest wall tenderness with no crepitus Heart is regular rate and rhythm. Abdomen is soft nontender nondistended. No guarding or rebound Extremities are unremarkable. Skin is warm and dry. No rash No focal neurologic deficit. Remainder of exam is unremarkable. Emergency Department Course and Treatment: EKG is sinus rate of 85 with no acute ischemic changes. She was given Dilaudid and Zofran IV. CBC shows a white count 11.8, hemoglobin 11.0. Chemistries unremarkable. Troponin is negative. CTA chest shows there is no evidence of pulmonary embolism. Findings in keeping with honeycombing and interstitial fibrosis in both lungs suggest above the end-stage sarcoidosis. Patient is feeling improved. She states she has been dealing with her sarcoidosis for several years. She is aware that it is end- stage. She will follow-up with her specialist in [place]. She is advised to continue her oxycodone as directed. Advised return ED if worsening complaints. Disposition: Discharge home Impression: Pleuritic chest pain This note was generated with Related Content Database (RCDb) dictation software. It may contain incorrect words, spelling, and punctuation that were not noted in review of the chart prior to signing ED Disposition - Plan for ED Patient: Chief Complaint: Chest Pain Referrals: John Sears MD [Primary Care Provider] - What to do if you have Problems For any increased pain, shortness of breath, bleeding, nausea or vomiting, chest pain, or any unexpected problems, contact your Primary Care Provider. Call [facility] ([phone]) or report to the closest Emergency Room. Call 911 if necessary. 09/11/17 1202 <Electronically signed by Elsa Sue MD> Date Elsa Sue MD Cosigner Signature (If Indicated): Date CC: John Sears MD CBC W/DIFF, AUTOMATED Collected: 09/11/2017 Status: F Source: NEGAR 10:14 AM [facility] REPOSITORY TYPE CODE TESTS RESULT OUT OF RANGE REFERENCE UNITS LAB L100.1000 4.4-11.0 K/mm3 High WBC 11.8 LAB L100.1200 4.2-5.4 M/mm3 Low RBC 3.79 LAB L100.1300 12.0-15.0 g/dl Low HGB 11.0 LAB L100.1400 37-47 % Low HCT 31.9 LAB L100.1500 81-99 fL Normal MCV 84.2 LAB L100.1600 27.0-32.0 pg Normal MCH 29.0 LAB L100.1700 32-36 g/gl Normal MCHC 34.5 LAB L100.1810 11.6-14.6 % High RDW CV 15.2 LAB L100.1820 35.1-43.9 fl High RDW SD 46.3 LAB L100.1900 150-450 K/mm3 Normal PLT 326 LAB L100.2000 6.2-12.0 fl Normal MPV 8.6 LAB L100.2100 47-70 % Normal NEUT% 47.2 LAB L100.2200 19-41 % Normal LY% 30.3 LAB L100.2300 0-10 % High MONO% 13.7 LAB L100.2400 0-5 % High EO% 7.3 LAB L100.2500 0-1 % High BASO% 1.3 LAB L100.2550 0.0-0.9 % Normal IM GRAN % 0.200 Result Comment: IG% - Immature Granulocytes (promyelocytes, myelocytes and metamyelocytes) > 1% indicates that a LEFT SHIFT is Present. LAB L100.2620 2.0-7.7 X10 3/uL Normal Absolute Neut 5.6 LAB L100.2720 0.83-4.51 X10 3/ul Normal Absolute Lymph 3.58 LAB L100.4500 Normal SMEAR COMMENT SCANNED Performed By: #### L100.0100 #### [facility] [address] [place], [place], [address] BASIC METABOLIC Collected: 09/11/2017 Status: F Source: MCCURTAIN PROFILE (BMP) 10:14 AM [facility] REPOSITORY Order Comment: 'TROP' Serial specimen #1, #2, #3, or #4: 1 TYPE CODE TESTS RESULT OUT OF RANGE REFERENCE UNITS LAB L501.0100 70-110 mg/dL Normal GLU 87 LAB L501.1000 7-18 mg/dL Normal BUN 9 LAB L501.1100 0.55-1.02 mg/dL Normal 0.99 CREAT,SERUM Result Comment: The validity of the calculated GFR AND GFRAA in patients over 70 years has not been determined. Clinical correlation is essential. LAB L501.1110 >60 mL/min Normal EST GFR 63 Result Comment: Non- GFR Calc LAB L501.1115 >60 mL/min Normal EST GFR - AA 76 Result Comment: GFR Calc LAB L501.1255 ml/min Normal Estimated CRCL 53.17 LAB L501.1300 10-20 RATIO Low BUN/CRE 9.1 LAB L501.2200 8.5-10 mg/dL Normal .1 CA 8.7 LAB L501.5300 136-14 mmol/L Normal 5 NA 139 LAB L501.5600 3.5-5. mmol/L Normal 1 K 4.3 Result Comment: Moderate Hemolysis, Result may be falsely increased. LAB L501.5900 98-107 mmol/L High CL 108 LAB L501.6100 21.0-32.0 mmol/L Normal CO2 22.0 LAB L501.6200 5-15 Normal 9 GAP Performed By: #### L500.2500, L501.4010 #### [facility] [address] [place], [address] TROPONIN-I Collected: 09/11/2017 Status: F Source: MCCURTAIN 10:14 AM [facility] REPOSITORY Order Comment: 'TROP' Serial specimen #1, #2, #3, or #4: 1 TYPE CODE TESTS RESULT OUT OF RANGE REFERENCE UNITS LAB L501.4010 <0.06 ng/mL Normal < 0.02 TROPONIN-I Result Comment: TROPONIN-I EXPECTED VALUES <0.05 NEGATIVE 0.06 - 0.59 AT RISK OF ND > OR = 0.60 SUGGEST ND Performed By: #### L500.2500, L501.4010 #### [facility] [address] [place], [place], [address] CTA CHEST W/WO Observed: 09/11/2017 Status: F Source: NEGAR CONTRAST 10:07 AM [facility] REPOSITORY [facility] Imaging Services [address] [place] [place] [address] CTA Chest W/WO Contrast MR#: [id number] Acct: [id number] Name: EMELIA LAI Rep #: [id number] : 1965 F 51 From: Fredy Olmos MD PCP: Orion GONZALES,John Status: REG ER Study: CTA Chest W/WO Contrast Date of Exam: 09/11/17 Exam# [id number] Ordering Dr: Elsa Sue MD STUDY: CTA CHEST REASON FOR EXAM: Female, 51 years old. 3 week history of a chest pain. History of sarcoidosis. RADIATION DOSAGE (If Supplied By Facility): CTDIvol = ( 11.62 ) mGy, DLP = ( 380.11 ) mGycm TECHNIQUE: The examination was performed with the intravenous administration of 75mL ml of Isovue 370 contrast material. Post-processing of the angiographic images was performed, with multiplanar reformation and 3D reconstruction. Individualized dose optimization techniques were used for this CT. COMPARISON: Comparison is made with prior examination dated October 30, 2016. FINDINGS: Normal enhancement of the main pulmonary artery and right and left pulmonary arteries. Normal enhancement of the bilateral peripheral pulmonary arteries. There is no demonstrated pulmonary embolism. Normal thoracic aorta and visualized great vessels. There is no demonstrated aortic dissection. Normal heart and pericardium. Normal mediastinum. There are bilateral hilar lymph nodes, which are normal in size and morphology. Normal visualized trachea and bronchi. The lungs are well expanded. There is evidence of a bronchiectasis and multiple cystic changes in the right upper lobe suggestive of scarring. Mild loss in the right upper lobe. There is also dense of bronchiectasis and cystic changes in the posterior aspect of the left upper lobe abutting the major fissure. Bronchiectasis is also seen in the right lower lobe as well as in the left lower lobe and lingular segment of the left upper lobe. This is in keeping with a honeycombing. Normal pleura. Normal chest wall structures. Normal osseous structures. Normal visualized upper abdomen. CT/CTA Chest W/WO Contrast IMPRESSION: There is no evidence of pulmonary embolism. Findings in keeping with honeycombing and interstitial fibrosis in both lungs suggest above the end-stage sarcoidosis. Electronically Signed: Fredy Olmos MD at 11:21 EST Tel [phone], Service support , CC: Elsa Sue MD; John Sears MD Obiee Architect: Signed ALLERGIES ALLERGIES DATE TYPE / NAME / CODE REACTION SEVERITY SOURCE CODE 07/03/2018 Drug cephalexin Itching [place] Allergy/41 monohydrate/S79209 [facility] [id number]( 6830(RXNO) [facility] CT) Repository 07/03/2018 Drug moxifloxacin Vomiting Unknown [place] Allergy/41 HCl/[id number](RXN Community [id number]( OR) [facility] CT) Repository 07/03/2018 Drug doxycycline/X66227 Vomiting Unknown [place] Allergy/41 2748(RXNORM) [facility] [id number]([facility]) Repository 12/13/2010 DRUG GRASS POLLEN ANAPHYLAXIS [address] [id number]( Repository [facility] CT) 02/24/2008 DRUG DOXYCYCLINE Vomiting [address] [id number]( Repository [facility] CT) 05/21/2006 DRUG MOXIFLOXACIN HCL Vomiting [address] 3846759( Repository [facility] CT) 04/11/2006 DRUG CEPHALEXIN SWELLING [address] 0782733( Repository [facility] CT) ENCOUNTERS ENCOUNTERS ADMIT/DISCHARGE ACCOUNT ADMITTING ENCOUNTER LOCATION SOURCE NUMBER CLASS 07/29/2018 [id number] Ambulatory [facility] ing:CT Repository 07/03/2018 [id number] Ambulatory [facility] ing:MRI Repository 07/03/2018/07/03/20 [id number] Emergency [address] ing:ED Repository 06/07/2018/06/07/20 [id number] Emergency [address] ing:ED Repository 06/07/2018 [id number] [facility] ing:CT Repository 05/29/2018 [id number] Ambulatory [facility] ing:MTLAB Repository 03/28/2018/03/28/20 [id number] Ambulatory [address] Repository 03/28/2018 [id number] Ambulatory [facility] ing:LAB.FUTUR Repository E 03/19/2018 [id number] Ambulatory [facility] ing:LABSPEC Repository 03/14/2018 [id number] Ambulatory [facility] ing:LAB Repository 02/12/2018/02/13/20 [id number] Emergency [address] ing:ED Repository 02/09/2018 [id number] Ambulatory [facility] ing:LABSPEC Repository 02/05/2018/02/06/20 [id number] Ambulatory [address] Repository 02/03/2018/02/04/20 [id number] Emergency [address] ing:ED Repository 01/28/2018 [id number] Ambulatory [facility] ing:LAB.FUTUR Repository E 01/23/2018/01/24/20 [id number] Emergency [address] ing:ED Repository 01/17/2018/01/20/20 [id number] [place] [address] [facility]: Repository ROX227Ian: 1 01/17/2018 [id number] Bea, Ambulatory BMSBuilding:[place] G[place] [facility] Repository 01/17/2018 [id number] Bea, Ambulatory BMSBuilding:B [place] Ghasem [facility] Repository 01/17/2018/01/20/20 [id number] Ambulatory BMSBuilding:W [place] [facility] Repository 01/17/2018 [id number] Bea, Ambulatory BMSBuilding:B [place] Ghasem [facility] Repository 10/19/2017/10/20/19 [id number] Emergency [address] ing:ED Repository 10/04/2017/10/04/19 [id number] Emergency [address] ing:ED Repository 10/01/2017 [id number] Ambulatory BMSBuilding:Abhijit Bills [facility] Repository 09/11/2017/09/11/19 [id number] Emergency [address] ing:ED Repository PAYERS PAYERS ENCOUNTER GUARANTOR PAYER SUBSCRIBER SOURCE 07/29/2018 EMELIA E [id number] Primary EMELIA E RAYDOB: [place] /spring Insurance:MYCARE CRSC [id number] [facility] [place] [place] *[place] [facility] [address]Prc: (330) Number: Repository [phone] () [id number] Date:7699-91-52HIMW [place]S [address], [place] [address]OC: 07/29/2018 Secondary NOT GIVENUNK [place] Insurance:SELF PAY [facility] Number: Effective Repository Date:2018-07-23 07/03/2018 EMELIA E [id number] Primary EMELIA E RAYDOB: [place] Insurance:[employer]ARE [employer]S [id number] [place] [facility] [address]Aow: (330) Number: Repository [phone] () [id number] Date:2219-39-46DZMJ CLAIMS [address], [place] [address]EE: 07/03/2018 Secondary NOT GIVENUNK [place] Insurance:SELF PAY [facility] Number: Effective Repository Date:2018-07-03 07/03/2018 EMELIA E [id number] Primary EMELIA E RAYDOB: [place] 2 SPRING Insurance:MYCARE CRS [id number] [place] [facility] [address]Ejk: (330) Number: Repository [phone] () [id number] Date:3948-19-13BUCI CLAIMS [address], [place] [address]EW: 07/03/2018 Secondary NOT GIVENUNK [place] Insurance:SELF PAY [facility] Number: Effective Repository Date:2018-07-03 06/07/2018 EMELIA E [id number] Primary EMELIA E RAYDOB: [place]ar 1/2 SPR[place] Insurance:MYCARE [facility] [id number] [place] [facility] [address]Hke: (330) Number: Repository [phone] () [id number] Date:1001-62-76NSLY [place]S [address] [address]EY: 06/07/2018 Secondary NOT GIVENUNK [place] Insurance:SELF PAY [facility] Number: Effective Repository Date:2018-06-07 06/07/2018 EMELIA E [id number] Primary EMELIA E RAYDOB: [place] Insurance:MYCARE [facility] [id number] [place] [facility] [address]Ylr: (330) Number: Repository [phone] () [id number] Date:1626-89-17YYCS [place]S [address] [address]TG: 06/07/2018 Secondary NOT GIVENUNK [place] Insurance:SELF PAY [facility] Number: Effective Repository Date:2018-06-06 05/29/2018 EMELIA E [id number] Primary EMELIA E RAYDOB: [place] 1/2 SPRING Insurance:[employer]CARE [facility] [id number] [place] [facility] [address]Igr: (330) Number: Repository [phone] () [id number] Date:7609-40-06CJEY [place] [address] [address]YI: 05/29/2018 Secondary NOT GIVENUNK Negar Insurance:SELF PAY [facility] Number: Effective Repository Date:2018-05-29 03/28/2018 EMELIA E [id number] Primary EMELIA E RAYDOB: Negar 1/2 SPRING Insurance:[facility] [id number] [place] [facility] [address]Dky: (330) Number: Repository [phone] () [id number] Date:2334-33-84QRMZ [address]S [address], [place] [address]GN: 03/28/2018 Secondary NOT GIVENUNK [place] Insurance:SELF PAY [facility] Number: Effective Repository Date:2018-03-28 03/19/2018 EMELIA E [id number] Primary EMELIA E RAYDOB: [place] Insurance:[facility] [id number] [facility] [place] [facility] [address]Lib: [phone]) Number: Repository [phone] () [id number] Date:[id number] [address], [place] [address]IM: 03/19/2018 Secondary NOT GIVENUNK [place] Insurance:SELF PAY [facility] Number: Effective Repository Date:2018-03-19 03/14/2018 EMELIA E [id number] Primary EMELIA E RAYDOB: [place] Insurance:[facility] [id number] [facility] [place] [facility] [address]Udb: (330) Number: Repository [phone] () [id number] Date:2872-17-63GAKT [address], [place] [address]ZE: 03/14/2018 Secondary NOT GIVENUNK [place] Insurance:SELF PAY [facility] Number: Effective Repository Date:2018-03-14 02/12/2018 EMELIA E [id number] Primary EMELIA E RAYDOB: [place] Insurance:[facility] [id number] [facility] [place] [facility] [address]Ylu: (330) Number: Repository [phone] () [id number] Date:1645-44-33ZDNQ [address], [place] [address]KT: 02/12/2018 Secondary NOT GIVENUNK [place] Insurance:SELF PAY [facility] Number: Effective Repository Date:2018-02-12 02/09/2018 EMELIA E [id number] Primary EMELAI E RAYDOB: Negar 1/spring Insurance:[facility] [id number] [place] [address]Tel: (330) Number: Repository [phone] () [id number] Date:5217-94-02APPS CLAIMS [address] [place] [address]RD: 02/09/2018 Secondary NOT GIVENUNK [place] Insurance:SELF PAY [facility] Number: Effective Repository Date:2018-02-09 02/03/2018 EMELIA E [id number] Primary EMELIA E RAYDOB: [place] Insurance:[facility] [id number] [place] [address]Tel: (330) Number: Repository [phone] () [id number] Date:4676-85-32HXAB [address] [place] [address]TF: 02/03/2018 Secondary NOT GIVENUNK [place] Insurance:SELF PAY [facility] Number: Effective Repository Date:2018-02-03 01/28/2018 EMELIA E [id number] Primary EMELIA E RAYDOB: [place] Insurance:[facility] [id number] [place] [address]Tel: (330) Number: Repository [phone] () [id number] Date:7054-93-34JRMM [address] [place] [address]JQ: 01/28/2018 Secondary NOT GIVENUNK [place] Insurance:SELF PAY [facility] Number: Effective Repository Date:2018-01-28 01/23/2018 EMELIA E [id number] Primary EMELIA E RAYDOB: Negar 2 SPRING Insurance:[facility] [id number] [facility] [place] [facility] [address]Vok: (330) Number: Repository [phone] () [id number] Date:1358-06-01DMLG [address] [address]GS: 01/23/2018 Secondary NOT GIVENUNK [place] Insurance:SELF PAY [facility] Number: Effective Repository Date:2018-01-23 01/17/2018 EMELIA E [id number] Primary EMELIA E RAYDOB: [place] Insurance:[facility] [id number] [facility] [place] [facility] [address]Zlk: (330) Number: Repository [phone] () [id number] Date:7057-24-90MESM [place] [address]ZF: 01/17/2018 Secondary NOT GIVENUNK [place] Insurance:SELF PAY [facility] Number: Effective Repository Date:2018-01-17 01/17/2018 EMELIA E [id number] Primary EMELIA E RAYDOB: [place] Insurance:[facility] [id number] [facility] [place] [facility] [address]Ecw: (330) Number: Repository [phone] () [id number] Date:3446-36-83GIBO [address]S [address] [address]HX: 01/17/2018 Secondary NOT GIVENUNK [place] Insurance:SELF PAY [facility] Number: Effective Repository Date:2018-01-17 01/17/2018 EMELIA E [id number] Primary EMELIA E RAYDOB: [place] Insurance:[facility] [id number] [facility] [place] [facility] [address]Guk: (330) Number: Repository [phone] () [id number] Date:7924-46-78MQWK [address] [address]BX: 01/17/2018 Secondary NOT GIVENUNK [place] Insurance:SELF PAY [facility] Number: Effective Repository Date:2018-01-17 01/17/2018 EMELIA E [id number] Primary EMELIA E RAYDOB: [place] 1/spring Insurance:[facility] [id number] [address]Tel: (330) Number: Repository [phone] () [id number] Date:5457-03-43TFNP [address], [place] [address]GI: 01/17/2018 Secondary NOT GIVENUNK [place] Insurance:SELF PAY [facility] Number: Effective Repository Date:2018-01-17 01/17/2018 EMELIA E [id number] Primary EMELIA E RAYDOB: [place] Insurance:[facility] [id number] [address]Tel: (330) Number: Repository [phone] () [id number] Date:9132-33-19GEWY [address], [place] [address]RZ: 01/17/2018 Secondary NOT GIVENUNK [place] Insurance:SELF PAY [facility] Number: Effective Repository Date:2018-01-17 10/19/2017 EMELIA E [id number] Primary EMELIA E RAYDOB: [place] Insurance:[facility] [id number] [place] [address]Tel: (330) Number: Repository [phone] () [id number] Date:1547-99-31KLTN [address], [place] [address]UR: 10/19/2017 Secondary NOT GIVENUNK [place] Insurance:SELF PAY [facility] Number: Effective Repository Date:2017-10-19 10/04/2017 EMELIA E [id number] Primary EMELIA E RAYDOB: Neg[place] 1/2 SPR[place] Insurance:[facility] [id number] [facility] [place] [facility] [address]Mtf: (330) Number: Repository [phone] () [id number] Date:1746-03-22XSZR [address], [place] [address]WG: 10/04/2017 Secondary NOT GIVENUNK [place] Insurance:SELF PAY [facility] Number: Effective Repository Date:2017-10-04 10/01/2017 EMELIA E [id number] Primary EMELIA E RAYDOB: [place] Insurance:[facility] [id number] [place] [id number]: (330) Number: Repository [phone] () [id number] Date:0481-59-30KSLA [address], [place] [address]WU: 10/01/2017 Secondary NOT GIVENUNK [place] Insurance:SELF PAY [facility] Number: Effective Repository Date:2017-10-01 09/11/2017 Emelia E [id number] Primary Emelia E RayDOB: [place] Insurance:[facility] [id number] [place] [id number]: (330) Number: Repository [phone] () [id number] Date:3687-32-23RWTR [address], [place] [address]JY: 09/11/2017 Secondary NOT GIVENUNK [place] Insurance:SELF PAY [facility] Number: Effective Repository Date:2017-09-11
== END ==
PROVIDERS: Family Provider Family Medicine; PCP Family Medicine; Referring Provider Family Medicine; Visit Provider Family Medicine
DX: J31.0 Chronic rhinitis (principal)
CPT/HCPCS: 70486

== ENCOUNTER 2018-09-21 14:45 | Emergency (ER) | payer MEDICARE, SELFPAY ==
[2018-09-21 14:46] VITALS: BP 150/97; PULSE 100; RESP 20; TEMP 36.6; O2SAT 90; BMI 24.8
[2018-09-21 15:00] VITALS: BP 150/97; PULSE 100; RESP 20; TEMP 36.6; O2SAT 93; O2SAT 94
--- NOTE | 2018-09-21 15:10 | ED.RN ---
PT REPORTS CHEST PAIN. RESPIRATORY CALLED FOR EKG.
--- NOTE | 2018-09-21 15:24 | EKG12_ITS ---
Test Reason : CHEST PAIN Blood Pressure : / mmHG Vent. Rate : 094 BPM Atrial Rate : 094 BPM P-R Int : 160 ms QRS Dur : 088 ms QT Int : 400 ms P-R-T Axes : 066 085 002 degrees QTc Int : 500 ms Normal sinus rhythm Prolonged QT Abnormal ECG Confirmed by NIDIA GONZALES, MARCELINO ([id number]), scientific editor SAY LITTLE ([id number]) on 09/25/2018 1:31:41 PM Referred By: HEATHER Confirmed By:MARCELINO JACOB MD
[2018-09-21 15:26] VITALS: O2SAT 93
[2018-09-21 15:30] VITALS: PULSE 99; RESP 28
[2018-09-21] MEDS: Ipratropium/Albuterol Sulfate 3 ML AMPUL.NEB INHALATION (15:30)
--- NOTE | 2018-09-21 15:39 | RAD_ITS ---
STUDY: X-RAY CHEST REASON FOR EXAM: Female, 52 years old. Cough with shortness of breath TECHNIQUE: Single AP portable view of the chest. COMPARISON: Prior study of 02/12/2018 FINDINGS: commercial internship leads are present. There are diffuse coarse fibrotic changes of the lungs, most severely affecting the lung bases. There is no demonstrated pleural abnormality. Normal size heart. Normal mediastinum and jordin. Normal visualized pulmonary arteries. Normal visualized aortic arch and descending thoracic aorta. Normal visualized thoracic spine. Normal visualized ribs, clavicles, and shoulders. There is no demonstrated abnormality of the visualized soft tissue structures of the upper abdomen. RAD/Chest 1 View (Portable) IMPRESSION: Diffuse coarse interstitial fibrotic changes of both lungs most severely affecting the lung bases. There is no evidence of acute infiltrate or pleural fluid. Chest findings are stable in the interval. Electronically Signed: Roman Quiñonez MD at 16:37 EST , Service support ,
[2018-09-21 15:50] LABS: Absolute Lymphocyte Count 4.57 X10^3/ul (0.83-4.51); Absolute Neutrophil Count 13.4 X10^3/uL (2.0-7.7); Basophil# 0.09 X10^3/uL; Basophil% 0.4 % (0-1); Eosinophil# 0.38 X10^3/uL; Eosinophils% 1.8 % (0-5); Hematocrit 24.4 % (37-47); Hemoglobin 8.7 g/dl (12.0-15.0); Lymphocyte # 4.57 X10^3/ul (4.0); Lymphocyte % 21.7 % (19-41); Mean Corp Hgb Conc 35.7 g/gl (32-36); Mean Corpuscular Hgb 27.4 pg (27.0-32.0); Mean Corpuscular Volume 76.7 fL (81-99); Mean Platelet Vol. 8.7 fl (6.2-12.0); Monocyte# 2.39 X10^3/uL; Monocyte% 11.4 % (0-10); Neutrophil # 13.42 X10^3/uL (2.7-7.7); Neutrophil % 63.9 % (47-70); Platelet Count 456 K/mm3 (150-450); RBC Distribution Width CV 16.8 % (11.6-14.6); Red Blood Count 3.18 M/mm3 (4.2-5.4)
[2018-09-21] MEDS: oxyCODONE 5 MG Tablet PO (15:53)
[2018-09-21 15:57] LABS: Differential Indicated SCAN CRITERIA MET; POSITIVE COUNT NO; POSITIVE DIFFERENTIAL YES; POSITIVE MORPHOLOGY NO
[2018-09-21 16:00] VITALS: BP 167/111; PULSE 95; RESP 21; TEMP 36.7; O2SAT 92
[2018-09-21 16:12] LABS: Anisocytosis 2+; Differential Comment SCANNED
[2018-09-21 16:13] LABS: Anion Gap 9 (5-15); BUN 11 mg/dL (7-18); BUN/Creat Ratio 11.9 RATIO (10-20); Calcium,Total 8.6 mg/dL (8.5-10.1); Chloride 107 mmol/L (98-107); Creatinine, Serum 0.92 mg/dL (0.55-1.02); EST Glomerular Filtration Rate 68 mL/min (>60); Est Glom Filt Rate - Afr Amer 82 mL/min (>60); Estimated Creatinine Clearance 56.57 ml/min; Glucose 103 mg/dL (74-106); Hypochromasia 2+; Macrocytosis 1+; Microcytosis 1+; Potassium 4.2 mmol/L (3.5-5.1); Sodium Level 137 mmol/L (136-145); Target Cells 1+
--- NOTE | 2018-09-21 16:58 | ED.DCSUM_ITS ---
- ER Visit Summary Date of Service: 09/21/18 Chief Complaint: Phlegm History of Present Illness: The patient is a 52 F with a history of asthma and COPD as well as sarcoidosis. She presents today with a cough with green phlegm. She does have some right-sided chest pain that started today after coughing. She feels tired. Denies fevers. Denies any history of heart disease, PE, or aortic disease. She is not currently on antibiotics. Physical Examination: Afebrile and vital signs unremarkable except for a heart rate of 100 and a respiratory rate of 20. 94% on room air. Patient is alert and oriented. No acute distress. Mild expiratory wheeze. Heart regular. Abdomen soft. Skin appears normal. Patient complains of left shoulder pain, but her exam is unremarkable. Test Results: EKG showed sinus rhythm at a rate of 94. QTC 500. Chest x-ray showed chronic changes. White count 21, hemoglobin 8.7, platelets 456. Metabolic panel normal. Troponin normal. Emergency Department Course and Treatment: Patient treated with a DuoNeb for her symptoms. Placed on monitor. EKG was done and showed a long QTc but was otherwise unremarkable. Patient received a pain pill for her shoulder pain. No diagnostic testing is indicated for this. This has been a chronic issue. Workup showed an elevated white blood count. She has a history of this. She has a history of elevated platelets and anemia as well. Troponin was normal. No sign of ischemia or infarction. I do not believe this is ACS, PE or dissection. It sounds infectious. Patient will be treated with doxycycline. Continue her Oxycodone prescription at home. Follow-up with primary care for recheck. Return for any new or worsening issues. Treatment Plan: As above Disposition: Discharge Impression: 1. Acute bronchitis 2. Leukocytosis 3. Left shoulder pain This note was generated with [employer] software. It may contain incorrect words, spelling, and punctuation that were not noted in review of the chart prior to signing ED Disposition - Plan for ED Patient: Referrals: John Sears MD [Primary Care Provider] -
--- NOTE | 2018-09-21 16:59 | ED.DEP ---
ED Disposition - Plan for ED Patient: Instructions: ED Bronchitis Asthmatic Prescriptions: Guaifenesin [Tussin] 100 mg PO Q6H PRN PRN #60 ml PRN Reason: Cough Amox/Clavulanate Tablet [Augmentin Tablet] 875 mg PO Q12H #20 tab Referrals: John Sears MD [Primary Care Provider] -
[2018-09-21 17:15] VITALS: BP 158/100; PULSE 91; RESP 18; O2SAT 93
== END 2018-09-21 17:15 | disposition home or self-care (01) ==
LOC: ED 15:25
PROVIDERS: Emergency Provider Emergency Medicine; Family Provider Family Medicine; PCP Family Medicine
DX: J44.0 Chronic obstructive pulmonary disease with (acute) lower respiratory infection (principal); J20.9 Acute bronchitis, unspecified; D72.829 Elevated white blood cell count, unspecified; M25.512 Pain in left shoulder; G89.29 Other chronic pain; D86.9 Sarcoidosis, unspecified; I10 Essential (primary) hypertension; Z79.891 Long term (current) use of opiate analgesic; Z79.899 Other long term (current) drug therapy; Z87.891 Personal history of nicotine dependence
CPT/HCPCS: 71045; 80048; 84484; 85025; 93005; 94640; 99285; A4216

== ENCOUNTER 2018-09-22 12:49 | Emergency (ER) | payer MEDICARE, SELFPAY ==
[2018-09-21 14:46] VITALS: BMI 24.8
[2018-09-22 12:50] VITALS: BP 169/102; PULSE 101; RESP 22; TEMP 36.9; O2SAT 94; BMI 24.7
[2018-09-22 13:01] VITALS: BP 166/99; PULSE 102; RESP 26; TEMP 36.4; O2SAT 98
[2018-09-22 13:04] VITALS: O2SAT 97
--- NOTE | 2018-09-22 13:04 | EKG12_ITS ---
Test Reason : SOB Blood Pressure : / mmHG Vent. Rate : 097 BPM Atrial Rate : 097 BPM P-R Int : 154 ms QRS Dur : 088 ms QT Int : 368 ms P-R-T Axes : 063 077 -03 degrees QTc Int : 467 ms Normal sinus rhythm Right atrial enlargement Abnormal QRS-T angle, consider primary T wave abnormality Abnormal ECG Confirmed by NIDIA GONZALES, MARCELINO ([id number]), design editor SAY LITTLE ([id number]) on 09/25/2018 1:40:14 PM Referred By: CARLOS Confirmed By:MARCELINO JACOB MD
[2018-09-22 13:17] VITALS: PULSE 99; RESP 27
[2018-09-22] MEDS: Ipratropium/Albuterol Sulfate 3 ML AMPUL.NEB INHALATION (13:17)
--- NOTE | 2018-09-22 13:37 | RAD_ITS ---
STUDY: X-RAY CHEST REASON FOR EXAM: Female, 52 years old. Shortness of breath TECHNIQUE: AP COMPARISON: 09/21/2018 FINDINGS: Lungs continue to be hyperinflated with reticular fibrotic opacities in the right more than left lung, basilar dominant, overall stable since January 2018. No superimposed infiltrate. There is no demonstrated pleural abnormality. There is mild cardiac enlargement. Normal mediastinum and jordin. Normal visualized pulmonary arteries. Normal visualized aortic arch and descending thoracic aorta. Normal visualized thoracic spine. Normal visualized ribs, clavicles, and shoulders. There is no demonstrated abnormality of the visualized soft tissue structures of the upper abdomen. RAD/Chest 1 View (Portable) IMPRESSION: 1. Stable exam. Pulmonary fibrosis. No superimposed pneumonia. Electronically Signed: Steven Martinez MD at 13:53 EST , Service support ,
[2018-09-22] MEDS: MethylPREDNISolone 125 MG/2 ML Vial IV (13:42)
[2018-09-22] MEDS: Morphine 4 MG/ML Syringe IV (13:42)
[2018-09-22] MEDS: Ondansetron 4 MG/2 ML Vial IV (13:42)
[2018-09-22 13:50] LABS: Absolute Neutrophil Count 15.1 X10^3/uL (2.0-7.7); Basophil# 0.08 X10^3/uL; Basophil% 0.4 % (0-1); Hematocrit 26.4 % (37-47); Hemoglobin 9.4 g/dl (12.0-15.0); Lymphocyte % 11.7 % (19-41); Mean Corp Hgb Conc 35.6 g/gl (32-36); Mean Corpuscular Hgb 27.2 pg (27.0-32.0); Mean Corpuscular Volume 76.5 fL (81-99); Mean Platelet Vol. 8.1 fl (6.2-12.0); Monocyte# 1.32 X10^3/uL; Neutrophil # 15.06 X10^3/uL (2.7-7.7); Neutrophil % 80.2 % (47-70); Platelet Count 500 K/mm3 (150-450); RBC Distribution Width CV 16.7 % (11.6-14.6); RBC Distribution Width SD 44.4 fl (35.1-43.9); Red Blood Count 3.45 M/mm3 (4.2-5.4); White Blood Count 18.8 K/mm3 (4.4-11.0)
[2018-09-22 13:51] LABS: POSITIVE COUNT NO; POSITIVE DIFFERENTIAL NO; POSITIVE MORPHOLOGY NO
[2018-09-22 14:00] VITALS: BP 158/109; PULSE 97; RESP 24; TEMP 36.5; O2SAT 94
[2018-09-22 14:05] LABS: ALB/GLOB Ratio 0.6 RATIO (0.9-2.4); AST(SGOT) 25 U/L (15-37); Alanine Aminotransfer ALT/SGPT 13 U/L (13-56); Albumin, Serum 2.9 g/dL (3.2-5.0); Alkaline Phosphatase 158 U/L (45-117); Anion Gap 12 (5-15); BUN 9 mg/dL (7-18); BUN/Creat Ratio 10.5 RATIO (10-20); Chloride 107 mmol/L (98-107); Creatinine, Serum 0.86 mg/dL (0.55-1.02); EST Glomerular Filtration Rate 74 mL/min (>60); Est Glom Filt Rate - Afr Amer 89 mL/min (>60); Estimated Creatinine Clearance 60.52 ml/min; Globulin 5.2 g/dL (2.2-4.2); Glucose 117 mg/dL (74-106); Potassium 4.5 mmol/L (3.5-5.1); Protein, Total 8.1 g/dL (6.4-8.2); Sodium Level 138 mmol/L (136-145)
--- NOTE | 2018-09-22 14:08 | ED.VISSUMM ---
- ER Visit Summary Date of Service: 09/22/18 Chief Complaint: Patient is complaining of shortness of breath. He has a history of sarcoid this is chronic and recurrent she also has chest pain. No fever chills she has a cough that is nonproductive. She was seen yesterday for similar symptoms. Physical Examination: Not appear in acute distress. Moist mucous membranes, no obvious facial deformity No C-spine tenderness supple neck. Regular rate and rhythm without any obvious murmurs Patient speaking in full sentences, she does have an expiratory wheezing and coarse breath sounds. She has normal respirations. She does not appear in respiratory distress. Abdomen soft and nontender no guarding or rebound Moves all extremities without any difficulty or pain. Skin does not show any obvious rashes or lesions, no trauma. Alert oriented ?3 with no gross focal deficit Emergency Department Course and Treatment: Patient is significantly improved after nebulizers and analgesics, she has sarcoid and her x-rays unremarkable I will put her on steroids she appears well she is not hypoxic she is not have significant breathing difficulty I believe she stable for discharge. Disposition: Discharge stable condition Impression: Chest pain Sarcoidosis This note was generated with [employer] dictation software. It may contain incorrect words, spelling, and punctuation that were not noted in review of the chart prior to signing ED Disposition - Plan for ED Patient: Disposition: Home or Assisted Living Diagnosis: Sarcoidosis Instructions: ED Reactive Airway Disease Prescriptions: Hydrocodone/Acetaminophen [[place] 5-325 Tablet] 1 ea PO Q8 PRN #12 tab PRN Reason: Moderate Pain (4-5/10) Prednisone 60 mg PO DAILY #15 tab Referrals: John Sears MD [Primary Care Provider] -
[2018-09-22] MEDS: HYDROmorphone 1 MG/ML Syringe IV (14:11)
--- NOTE | 2018-09-22 14:12 | ED.DCSUM_ITS ---
- ER Visit Summary Date of Service: 09/22/18 Chief Complaint: Patient is complaining of shortness of breath. He has a history of sarcoid this is chronic and recurrent she also has chest pain. No fever chills she has a cough that is nonproductive. She was seen yesterday for similar symptoms. Physical Examination: Not appear in acute distress. Moist mucous membranes, no obvious facial deformity No C-spine tenderness supple neck. Regular rate and rhythm without any obvious murmurs Patient speaking in full sentences, she does have an expiratory wheezing and coarse breath sounds. She has normal respirations. She does not appear in respiratory distress. Abdomen soft and nontender no guarding or rebound Moves all extremities without any difficulty or pain. Skin does not show any obvious rashes or lesions, no trauma. Alert oriented ?3 with no gross focal deficit Emergency Department Course and Treatment: Patient is significantly improved after nebulizers and analgesics, she has sarcoid and her x-rays unremarkable I will put her on steroids she appears well she is not hypoxic she is not have significant breathing difficulty I believe she stable for discharge. Disposition: Discharge stable condition Impression: Chest pain Sarcoidosis This note was generated with [employer] dictation software. It may contain incorrect words, spelling, and punctuation that were not noted in review of the chart prior to signing ED Disposition - Plan for ED Patient: Disposition: Home or Assisted Living Diagnosis: Sarcoidosis Instructions: ED Reactive Airway Disease Prescriptions: Hydrocodone/Acetaminophen [[place] 5-325 Tablet] 1 ea PO Q8 PRN #12 tab PRN Reason: Moderate Pain (4-5/10) Prednisone 60 mg PO DAILY #15 tab Referrals: John Sears MD [Primary Care Provider] -
[2018-09-22 14:52] VITALS: PULSE 89; RESP 20; O2SAT 94
--- NOTE | 2018-09-22 15:01 | ED.RN ---
pt called and notified she left a garment in her room. message left on phone
== END 2018-09-22 14:52 | disposition home or self-care (01) ==
PROVIDERS: Emergency Provider Emergency Medicine; Family Provider Family Medicine; PCP Family Medicine
DX: R07.9 Chest pain, unspecified (principal); D86.9 Sarcoidosis, unspecified; Z79.891 Long term (current) use of opiate analgesic; Z79.899 Other long term (current) drug therapy
CPT/HCPCS: 71045; 80053; 85025; 93005; 94640; 96374; 96375; 99284; A4216; J2405

== ENCOUNTER 2018-09-23 07:40 | Inpatient (IN) | payer MEDICARE, SELFPAY ==
[2018-09-22 12:50] VITALS: BMI 24.7
[2018-09-23] VITALS (8 sets, daily range): BP systolic 149–187; BP diastolic 86–116; PULSE 94–104; RESP 18–20; TEMP 36.4–36.7; O2SAT 91–95; BMI 24.7; BMI 23.9
--- NOTE | 2018-09-23 07:55 | RAD_ITS ---
STUDY: X-RAY CHEST REASON FOR EXAM: Female, 52 years old. Shortness of breath/dyspnea. TECHNIQUE: Single AP portable view of the chest. COMPARISON: Comparison is made with prior study dated September 22, 2018. FINDINGS: Once again, there is evidence of diffuse increased interstitial markings in both lungs worse in the lower lungs with areas of confluence and honeycombing. This is in keeping with a chronic interstitial fibrosis. There has been no change. There is no demonstrated pleural abnormality. Normal size heart. Normal mediastinum and jordin. Normal visualized pulmonary arteries. Normal visualized aortic arch and descending thoracic aorta. Normal visualized thoracic spine. Normal visualized ribs, clavicles, and shoulders. There is no demonstrated abnormality of the visualized soft tissue structures of the upper abdomen. RAD/Chest 1 View (Portable) IMPRESSION: There has been no change since prior study. Findings in keeping with interstitial fibrosis. Electronically Signed: Fredy Olmos MD at 8:44 EST , Service support ,
--- NOTE | 2018-09-23 07:58 | ED.DCSUM_ITS ---
- ER Visit Summary Date of Service: 09/23/18 Chief Complaint: Shortness of breath History of Present Illness: The patient is a 52 F with shortness of breath, she has chronic sarcoidosis, she was seen last night and the night before for dyspnea. No fever chills. No PE risk factors. She was given nebulizers and steroids she had improved last night but is back this morning with shortness of breath. Physical Examination: Appears quite anxious Moist mucous membranes, no obvious facial deformity No C-spine tenderness supple neck. Regular rate and rhythm without any obvious murmurs Wheezing lungs bilaterally speaking in full sentences without any obvious respiratory distress Abdomen soft and nontender no guarding or rebound Moves all extremities without any difficulty or pain. Skin does not show any obvious rashes or lesions, no trauma. Alert oriented ?3 with no gross focal deficit Emergency Department Course and Treatment: Patient was again given steroids and nebulizer, I will admitted to the hospital for further management. She will need to get a PICC line and a CT angiogram of the chest to rule out a pulmonary embolism. Disposition: Admit stable condition Impression: Dyspnea Sarcoidosis This note was generated with [employer] dictation software. It may contain incorrect words, spelling, and punctuation that were not noted in review of the chart prior to signing ED Disposition - Plan for ED Patient: Referrals: John Sears MD [Primary Care Provider] -
[2018-09-23] MEDS: Ipratropium/Albuterol Sulfate 3 ML AMPUL.NEB INHALATION ×2 (08:07→19:05)
--- NOTE | 2018-09-23 08:10 | NURSING ---
DR MARINA GONZALEZ
--- NOTE | 2018-09-23 08:15 | NURSING ---
MED SURG SARCOIDOSIS KOTSONIS
[2018-09-23] MEDS: MethylPREDNISolone 125 MG/2 ML Vial IV (08:30)
[2018-09-23 08:45] LABS: Absolute Lymphocyte Count 1.42 X10^3/ul (0.83-4.51); Absolute Neutrophil Count 22.6 X10^3/uL (2.0-7.7); Basophil# 0.02 X10^3/uL; Basophil% 0.1 % (0-1); Hematocrit 28.4 % (37-47); Hemoglobin 9.4 g/dl (12.0-15.0); Lymphocyte # 1.42 X10^3/ul (4.0); Lymphocyte % 5.7 % (19-41); Mean Corp Hgb Conc 33.1 g/gl (32-36); Mean Corpuscular Hgb 26.3 pg (27.0-32.0); Mean Corpuscular Volume 79.6 fL (81-99); Mean Platelet Vol. 8.4 fl (6.2-12.0); Monocyte# 0.47 X10^3/uL; Monocyte% 1.9 % (0-10); Neutrophil # 22.62 X10^3/uL (2.7-7.7); Neutrophil % 91.2 % (47-70); Platelet Count 488 K/mm3 (150-450); RBC Distribution Width CV 18.3 % (11.6-14.6); RBC Distribution Width SD 52.6 fl (35.1-43.9); Red Blood Count 3.57 M/mm3 (4.2-5.4); White Blood Count 24.8 K/mm3 (4.4-11.0)
[2018-09-23 08:48] LABS: Differential Indicated SCAN CRITERIA MET; POSITIVE COUNT NO; POSITIVE DIFFERENTIAL YES; POSITIVE MORPHOLOGY NO
[2018-09-23 08:50] LABS: ALB/GLOB Ratio 0.6 RATIO (0.9-2.4); AST(SGOT) 16 U/L (15-37); Alanine Aminotransfer ALT/SGPT 13 U/L (13-56); Albumin, Serum 3.1 g/dL (3.2-5.0); Alkaline Phosphatase 157 U/L (45-117); Anion Gap 10 (5-15); BUN 16 mg/dL (7-18); BUN/Creat Ratio 11.9 RATIO (10-20); Calcium,Total 8.8 mg/dL (8.5-10.1); Chloride 105 mmol/L (98-107); Creatinine, Serum 1.35 mg/dL (0.55-1.02); EST Glomerular Filtration Rate 44 mL/min (>60); Est Glom Filt Rate - Afr Amer 53 mL/min (>60); Estimated Creatinine Clearance 38.55 ml/min; Globulin 5.3 g/dL (2.2-4.2); Glucose 139 mg/dL (74-106); Potassium 4.7 mmol/L (3.5-5.1); Protein, Total 8.4 g/dL (6.4-8.2); Sodium Level 133 mmol/L (136-145)
[2018-09-23 09:30] LABS: Absolute Nucleated RBC Count 0.06 10^3/uL (0-5); NRBC Flagged by Analyzer 0.2 % (0-5)
--- NOTE | 2018-09-23 09:51 | NURSING ---
Called Dr. Sears's office for a home med list, states will fax over.
[2018-09-23] MEDS: oxyCODONE 5 MG Tablet 10 MG PO ×2 (11:28→17:36)
--- NOTE | 2018-09-23 13:17 | PCM.CONS.GEN ---
Problem List (1) Chronic respiratory failure Status: Chronic Qualifiers: Respiratory failure complication: hypoxia Qualified Code(s): J96.11 - Chronic respiratory failure with hypoxia (2) History of lung biopsy Status: Resolved (3) History of tubal ligation Status: Resolved (4) Bronchiectasis with acute exacerbation Status: Acute (5) Asthma Status: Chronic (6) COPD (chronic obstructive pulmonary disease) Status: Chronic Qualifiers: (7) Chronic pain Status: Chronic Qualifiers: (8) Leukocytosis Status: Acute Qualifiers: (9) Cough Status: Chronic (10) HTN (hypertension) Status: Chronic Qualifiers: (11) Sarcoidosis Status: Chronic Reason for Consult Date of Consultation: 09/23/18 Reason for Consultation: Sarcoidosis History of Present Illness: The patient is a 52 year old F, with past medical history listed below, who presented to [facility] on 09/23/2018 secondary to increasing shortness of breath. Patient has presented to the emergency department several times in the last couple days. Patient states that her anxiety was keeping her up and she started to have worsening shortness of breath and chest fluttering. Patient reports that on previous presentation she had been given nebulizers and rates with some transient improvement. However, patient did had an episode where she fell on the ground had to pull herself onto the bed. In the emergency room, patient was noted to have wheezing bilaterally without any obvious signs of trauma. Given patient's repeated presentations, patient was admitted to the general medical floor for further evaluation. In retrospect, patient reports she is been coughing up yellow to green sputum for approximately 1 week. Patient denies any fever, chills, nausea or vomiting. Patient does report fluttering in her chest intermittently. Patient does have a long history of sarcoidosis and saccular bronchiectasis. Patient does not use any pulmonary toileting techniques at this time. Patient states that she normally follows at the [facility] with Dr. Betty Canales, but has been referred to Dr. Valencia, a reported sarcoidosis specialist. Patient states she is not currently on methotrexate, but is taking leflunomide. Patient states she was last seen by Dr. Canales 2 months ago and has an appointment with her on Sunday. Patient is unclear if she is ever had multidrug-resistant organisms in the past. Patient does state that she tends to get antibiotics and steroids frequently. Patient feels subjectively improved from a breathing standpoint since presentation, but states that her anxiety and left shoulder pain are severe. Patient is currently asking for pain medication for left shoulder pain. Patient reportedly is not given a sputum sample. Review of systems otherwise negative x10 systems. Past Medical History Past Medical History (Chronic Problems): Chronic Problems (Last Updated 10/01/17 @ 07:25 by Ivonne Sunshine) Chronic respiratory failure (Chronic) Chronic cough (Chronic) Bronchiectasis (Chronic) Asthma (Chronic) COPD (chronic obstructive pulmonary disease) (Chronic) Chronic pain (Chronic) Cough (Chronic) HTN (hypertension) (Chronic) Sarcoidosis (Chronic) Medical History: Medical History (Last Updated 10/01/17 @ 07:25 by Ivonne Sunshine) Costochondritis, acute (Acute) M94.0 Acute upper respiratory infection (Acute) J06.9 Chronic cough (Chronic) R05 Bronchiectasis with acute exacerbation (Acute) J47.1 Acute suppurative otitis media (Acute) H66.009 Bronchiectasis (Chronic) J47.9 Acute exacerbation of chronic obstructive pulmonary disease (Acute) J44.1 Asthma (Chronic) J45.909 COPD (chronic obstructive pulmonary disease) (Chronic) J44.9 Chronic pain (Chronic) G89.29 Hypokalemia (Acute) E87.6 Left otitis media (Acute) H66.92 Hypokalemia (Acute) E87.6 Leukocytosis (Acute) D72.829 Chest pain (Acute) R07.9 unknown etiology Pleuritic chest discomfort (Acute) Cough (Chronic) R05 Overdose (Acute) T50.901A HTN (hypertension) (Chronic) I10 Sarcoidosis (Chronic) D86.9 Allergies cephalexin monohydrate [From Keflex] Allergy (Mild, Verified 09/23/18 07:49) Itching doxycycline Adverse Reaction (Verified 09/23/18 07:49) Vomiting moxifloxacin HCl [From Avelox] Adverse Reaction (Verified 09/23/18 07:49) Vomiting Home Medications: Ambulatory Orders Medication Instructions Recorded Albuterol Inhaler [Ventolin Hfa] 1 - 2 puff INHALATION Q6H PRN PRN 09/05/16 Losartan Potassium [Cozaar] 50 mg PO BID 09/06/16 HydrOXYzine [Atarax] 50 mg PO Q8H PRN PRN 10/12/16 Leflunomide 20 mg PO DAILY 07/31/17 Albuterol Aerosols [Ventolin 2.5 mg INHALATION Q4H PRN PRN 08/13/17 Aerosols] Duloxetine HCl 60 mg PO DAILY 01/17/18 Paroxetine HCl [Paxil] 30 mg PO BID 01/17/18 Atorvastatin Calcium [Lipitor] 10 mg PO QHS #30 tab 01/19/18 Furosemide [Lasix] 20 mg PO DAILY PRN PRN 02/12/18 Ipratropium/Albuterol Respimat 1 puff INHALATION Q6H PRN PRN 02/12/18 [Combivent Respimat Inhal [place]] Amox/Clavulanate Tablet [Augmentin 875 mg PO Q12H #20 tab 09/21/18 Tablet] Guaifenesin [Tussin] 100 mg PO Q6H PRN PRN #60 ml 09/21/18 Hydrocodone/Acetaminophen [[place] 1 ea PO Q8 PRN #12 tab 09/22/18 5-325 Tablet] Prednisone 60 mg PO DAILY #15 tab 09/22/18 Albuterol Inhaler [Ventolin Hfa 1 - 2 puff INHALATION Q4H PRN PRN 09/23/18 (SP)] Clonidine HCl [Catapres] 0.2 mg PO QHS PRN PRN 09/23/18 Docusate Sodium 200 mg PO BID PRN PRN 09/23/18 Folic Acid 1 mg PO DAILY 09/23/18 Gabapentin 600 mg PO TID 09/23/18 Levocetirizine Dihydrochloride 5 mg PO DAILY 09/23/18 [Allergy Relief] Nortriptyline HCl [Pamelor] 10 - 20 mg PO QHS 09/23/18 Oxycodone HCl 10 mg PO TID PRN PRN 09/23/18 Oxygen, Home [Home Oxygen] 3 lpm NASAL QHS 09/23/18 Potassium Citrate [Urocit-K] 5 meq PO DAILY 09/23/18 Promethazine/Dextromethorphan 5 ml PO Q6H PRN PRN 09/23/18 [Promethazine-Dm Syrup] Tizanidine HCl [Zanaflex] 2 - 4 mg PO BID PRN PRN 09/23/18 Surgical History: Surgical History (Last Updated 10/01/17 @ 07:25 by Ivonne Sunshine) History of lung biopsy (Resolved) Z98.890 History of tubal ligation (Resolved) Z98.51 Surgical History: - - BLTL. 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 This shows chronic interstitial infiltrates. CT scans of the chest from June 07, 2018 and February 12, 2018 show significant honeycombing with saccular bronchiectasis bilaterally. There appears to be no interval change between imaging studies. No significant mediastinal lymphadenopathy is appreciated on CTA. Patient has never received pulmonary function tests at [facility]. - Physical Exam General: Alert, Oriented x3, Cooperative, - - Anxious. Appears older than stated age. HEENT: Atraumatic, PERRLA, EOMI, Normocephalic, - - No scleral icterus or injection noted. Oral: Moist Mucosa, No Gingival or Mucosal Lesions/ Ulcerations, - - Poor dentition Neck: Supple, No JVD, No Nodes, Trachea Midline Lungs: No wheeze, Rales, Rhonchi - Improved with coughing, - - Symmetric expansion. No dullness to percussion. Cardiovascular: Normal S1, Normal S2, No murmurs, No rub noted, No Gallop, Tachycardic Abdomen: Bowel Sounds Present, Soft, Non Tender, Non-Distended Extremities: No cyanosis, No edema, Capillary Refill Less than 3 Seconds, Clubbing Skin: No rashes, No breakdown, - - Dry skin Musculoskeletal: No Tenderness to Palpation of Joints or Extremities Lymphatic: No Cervical, Supraclavicular, or Inguinal Adenopathy Neurological: Cranial nerves II-XII grossly intact, Neuro grossly intact, Motor Exam 5/5 strength throughout Psych/Mental Status: Alert and oriented to time, place, person, mood and affect Vital Signs Temp Pulse Resp BP Pulse Ox 36.7 C 100 18 149/86 H 93 09/23/18 11:31 09/23/18 11:31 09/23/18 11:31 09/23/18 11:31 09/23/18 11:31 Oxygen Delivery Method Room Air Weight: 59.3 kg Body Mass Index (BMI) 23.9 Finger Stick Blood Glucose 156 Intake and Output for Last 24 Hours 09/21/18 09/22/18 09/23/18 23:59 23:59 23:59 Intake Total 300 / 300 Balance 300 / 300 Laboratory Tests Past 24 Hrs 09/23/18 09/23/18 08:25 08:25 WBC 24.8 H RBC 3.57 L Hgb 9.4 L Hct 28.4 L MCV 79.6 L MCH 26.3 L MCHC 33.1 RDW 18.3 H RDW Differential 52.6 H Plt Count 488 H MPV 8.4 Immature Gran % (Auto) 1.100 H Neut % (Auto) 91.2 H Lymph % (Auto) 5.7 L [place] % (Auto) 1.9 Eos % (Auto) 0.0 Baso % (Auto) 0.1 Absolute Neuts (auto) 22.6 H Absolute Lymphs (auto) 1.42 Total Counted Not Reportable Nucleated RBC % 0.2 Differential Comment COMMENT Absolute Retic 0.06 Sodium 133 L Potassium 4.7 Chloride 105 Carbon Dioxide 18.0 L Anion Gap 10 BUN 16 Creatinine 1.35 H Estim Creat Clear Calc 38.55 Est GFR (MDRD) Af Amer 53 L Est GFR (MDRD) Non-Af 44 L BUN/Creatinine Ratio 11.9 Glucose 139 H Calcium 8.8 Total Bilirubin 0.20 AST 16 ALT 13 Alkaline Phosphatase 157 H Total Protein 8.4 H Albumin 3.1 L Globulin 5.3 H Albumin/Globulin Ratio 0.6 L Clinical Impression(s) from Imaging Studies Chest X-Ray 09/23/18 07:55 IMPRESSION: There has been no change since prior study. Findings in keeping with interstitial fibrosis. Electronically Signed: Fredy Olmos MD at 8:44 EST , Service support , Assessment/Plan All Active Problems (Last Updated 10/01/17 @ 07:25 by Ivonne Sunshine) Cystitis (Acute) Acute metabolic encephalopathy (Acute) Sepsis (Acute) History of lung biopsy (Resolved) History of tubal ligation (Resolved) Costochondritis, acute (Acute) Acute upper respiratory infection (Acute) Bronchiectasis with acute exacerbation (Acute) Acute suppurative otitis media (Acute) Acute exacerbation of chronic obstructive pulmonary disease (Acute) Hypokalemia (Acute) Left otitis media (Acute) Hypokalemia (Acute) Leukocytosis (Acute) Chest pain (Acute) Pleuritic chest discomfort (Acute) Overdose (Acute) RECOMMENDATIONS: 1. Initiate on bronchodilators, prednisone and mucolytics 2. Start IV Zosyn therapy pending sputum culture results 3. Obtain sputum culture 4. Hold methotrexate and immunosuppression for now 5. Walking oximetry prior to discharge IMPRESSIONS: 1. Probable bronchiectasis exacerbation Bronchiectasis noted on imaging studies previously. Clinical suspicion for bronchiectasis exacerbation. Patient has received IV Solu-Medrol multiple times in the ER. Likely okay to continue with prednisone 40 mg p.o. daily. Patient would benefit from pulmonary toileting, mucolytic and bronchodilators. Patient will be at higher risk for resistant organisms, so initiation of Zosyn therapy empirically would be appropriate. Await sputum culture for further recommendations. 2. Sarcoidosis Unclear plan at this time. Patient is reporting she is following up with [facility] and appears to know providers names. Patient is stating that she is not on methotrexate at this time. Old records are not available for review. Patient has received significant immunosuppression through glucocorticoids. 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 Previous echocardiogram did show some diastolic dysfunction, but was grossly unchanged compared to 2009. This likely does not need to be repeated. 3. History of noncompliance/lack of transportation/repeated ER visits/chronic pain syndrome Complicates care, management, recovery and prognosis. Unclear immunosuppression at this time. This may be secondary to lack of follow-up or plans for alternative immunosuppression. Patient will be on prednisone therapy, so likely okay to hold on methotrexate. Code Visit Inpatient E&M: 61305 Init Hosp L3
--- NOTE | 2018-09-23 13:22 | CON.PCM_ITS ---
Problem List (1) Chronic respiratory failure Status: Chronic Qualifiers: Respiratory failure complication: hypoxia Qualified Code(s): J96.11 - Chronic respiratory failure with hypoxia (2) History of lung biopsy Status: Resolved (3) History of tubal ligation Status: Resolved (4) Bronchiectasis with acute exacerbation Status: Acute (5) Asthma Status: Chronic (6) COPD (chronic obstructive pulmonary disease) Status: Chronic Qualifiers: (7) Chronic pain Status: Chronic Qualifiers: (8) Leukocytosis Status: Acute Qualifiers: (9) Cough Status: Chronic (10) HTN (hypertension) Status: Chronic Qualifiers: (11) Sarcoidosis Status: Chronic Reason for Consult Date of Consultation: 09/23/18 Reason for Consultation: Sarcoidosis History of Present Illness: The patient is a 52 year old F, with past medical history listed below, who presented to [facility] on 09/23/2018 secondary to increasing shortness of breath. Patient has presented to the emergency department several times in the last couple days. Patient states that her anxiety was keeping her up and she started to have worsening shortness of breath and chest fluttering. Patient reports that on previous presentation she had been given nebulizers and rates with some transient improvement. However, patient did had an episode where she fell on the ground had to pull herself onto the bed. In the emergency room, patient was noted to have wheezing bilaterally without any obvious signs of trauma. Given patient's repeated presentations, patient was admitted to the general medical floor for further evaluation. In retrospect, patient reports she is been coughing up yellow to green sputum for approximately 1 week. Patient denies any fever, chills, nausea or vomiting. Patient does report fluttering in her chest intermittently. Patient does have a long history of sarcoidosis and saccular bronchiectasis. Patient does not use any pulmonary toileting techniques at this time. Patient states that she normally follows at the [facility] with Dr. Betty Canales, but has been referred to Dr. Valencia, a reported sarcoidosis specialist. Patient states she is not currently on methotrexate, but is taking leflunomide. Patient states she was last seen by Dr. Canales 2 months ago and has an appointment with her on Sunday. Patient is unclear if she is ever had multidrug-resistant organisms in the past. Patient does state that she tends to get antibiotics and steroids frequently. Patient feels subjectively improved from a breathing standpoint since presentation, but states that her anxiety and left shoulder pain are severe. Patient is currently asking for pain medication for left shoulder pain. Patient reportedly is not given a sputum sample. Review of systems otherwise negative x10 systems. Past Medical History Past Medical History (Chronic Problems): Chronic Problems (Last Updated 10/01/17 @ 07:25 by Ivonne Sunshine) Chronic respiratory failure (Chronic) Chronic cough (Chronic) Bronchiectasis (Chronic) Asthma (Chronic) COPD (chronic obstructive pulmonary disease) (Chronic) Chronic pain (Chronic) Cough (Chronic) HTN (hypertension) (Chronic) Sarcoidosis (Chronic) Medical History: Medical History (Last Updated 10/01/17 @ 07:25 by Ivonne Sunshine) Costochondritis, acute (Acute) M94.0 Acute upper respiratory infection (Acute) J06.9 Chronic cough (Chronic) R05 Bronchiectasis with acute exacerbation (Acute) J47.1 Acute suppurative otitis media (Acute) H66.009 Bronchiectasis (Chronic) J47.9 Acute exacerbation of chronic obstructive pulmonary disease (Acute) J44.1 Asthma (Chronic) J45.909 COPD (chronic obstructive pulmonary disease) (Chronic) J44.9 Chronic pain (Chronic) G89.29 Hypokalemia (Acute) E87.6 Left otitis media (Acute) H66.92 Hypokalemia (Acute) E87.6 Leukocytosis (Acute) D72.829 Chest pain (Acute) R07.9 unknown etiology Pleuritic chest discomfort (Acute) Cough (Chronic) R05 Overdose (Acute) T50.901A HTN (hypertension) (Chronic) I10 Sarcoidosis (Chronic) D86.9 Allergies cephalexin monohydrate [From Keflex] Allergy (Mild, Verified 09/23/18 07:49) Itching doxycycline Adverse Reaction (Verified 09/23/18 07:49) Vomiting moxifloxacin HCl [From Avelox] Adverse Reaction (Verified 09/23/18 07:49) Vomiting Home Medications: Ambulatory Orders Medication Instructions Recorded Albuterol Inhaler [Ventolin Hfa] 1 - 2 puff INHALATION Q6H PRN PRN 09/05/16 Losartan Potassium [Cozaar] 50 mg PO BID 09/06/16 HydrOXYzine [Atarax] 50 mg PO Q8H PRN PRN 10/12/16 Leflunomide 20 mg PO DAILY 07/31/17 Albuterol Aerosols [Ventolin 2.5 mg INHALATION Q4H PRN PRN 08/13/17 Aerosols] Duloxetine HCl 60 mg PO DAILY 01/17/18 Paroxetine HCl [Paxil] 30 mg PO BID 01/17/18 Atorvastatin Calcium [Lipitor] 10 mg PO QHS #30 tab 01/19/18 Furosemide [Lasix] 20 mg PO DAILY PRN PRN 02/12/18 Ipratropium/Albuterol Respimat 1 puff INHALATION Q6H PRN PRN 02/12/18 [Combivent Respimat Inhal [place]] Amox/Clavulanate Tablet [Augmentin 875 mg PO Q12H #20 tab 09/21/18 Tablet] Guaifenesin [Tussin] 100 mg PO Q6H PRN PRN #60 ml 09/21/18 Hydrocodone/Acetaminophen [[place] 1 ea PO Q8 PRN #12 tab 09/22/18 5-325 Tablet] Prednisone 60 mg PO DAILY #15 tab 09/22/18 Albuterol Inhaler [Ventolin Hfa 1 - 2 puff INHALATION Q4H PRN PRN 09/23/18 (SP)] Clonidine HCl [Catapres] 0.2 mg PO QHS PRN PRN 09/23/18 Docusate Sodium 200 mg PO BID PRN PRN 09/23/18 Folic Acid 1 mg PO DAILY 09/23/18 Gabapentin 600 mg PO TID 09/23/18 Levocetirizine Dihydrochloride 5 mg PO DAILY 09/23/18 [Allergy Relief] Nortriptyline HCl [Pamelor] 10 - 20 mg PO QHS 09/23/18 Oxycodone HCl 10 mg PO TID PRN PRN 09/23/18 Oxygen, Home [Home Oxygen] 3 lpm NASAL QHS 09/23/18 Potassium Citrate [Urocit-K] 5 meq PO DAILY 09/23/18 Promethazine/Dextromethorphan 5 ml PO Q6H PRN PRN 09/23/18 [Promethazine-Dm Syrup] Tizanidine HCl [Zanaflex] 2 - 4 mg PO BID PRN PRN 09/23/18 Surgical History: Surgical History (Last Updated 10/01/17 @ 07:25 by Ivonne Sunshine) History of lung biopsy (Resolved) Z98.890 History of tubal ligation (Resolved) Z98.51 Surgical History: - - BLTL. lung biopsy ' Psychiatric History: No pertinent psych hx HOP TRAINER History: No pertinent HOP TRAINER history Smoking Status: Former smoker - *Family History Maternal History Items: Diabetes, Hypertension, Stroke Paternal History Items: Stroke Review of Systems Comment: See HPI Objective: Chest imaging was personally reviewed. This shows chronic interstitial infiltrates. CT scans of the chest from June 07, 2018 and February 12, 2018 show significant honeycombing with saccular bronchiectasis bilaterally. There appears to be no interval change between imaging studies. No significant mediastinal lymphadenopathy is appreciated on CTA. Patient has never received pulmonary function tests at [facility]. - Physical Exam General: Alert, Oriented x3, Cooperative, - - Anxious. Appears older than stated age. HEENT: Atraumatic, PERRLA, EOMI, Normocephalic, - - No scleral icterus or injection noted. Oral: Moist Mucosa, No Gingival or Mucosal Lesions/ Ulcerations, - - Poor dentition Neck: Supple, No JVD, No Nodes, Trachea Midline Lungs: No wheeze, Rales, Rhonchi - Improved with coughing, - - Symmetric expansion. No dullness to percussion. Cardiovascular: Normal S1, Normal S2, No murmurs, No rub noted, No Gallop, Tachycardic Abdomen: Bowel Sounds Present, Soft, Non Tender, Non-Distended Extremities: No cyanosis, No edema, Capillary Refill Less than 3 Seconds, Clubbing Skin: No rashes, No breakdown, - - Dry skin Musculoskeletal: No Tenderness to Palpation of Joints or Extremities Lymphatic: No Cervical, Supraclavicular, or Inguinal Adenopathy Neurological: Cranial nerves II-XII grossly intact, Neuro grossly intact, Motor Exam 5/5 strength throughout Psych/Mental Status: Alert and oriented to time, place, person, mood and affect Vital Signs Temp Pulse Resp BP Pulse Ox 36.7 C 100 18 149/86 H 93 09/23/18 11:31 09/23/18 11:31 09/23/18 11:31 09/23/18 11:31 09/23/18 11:31 Oxygen Delivery Method Room Air Weight: 59.3 kg Body Mass Index (BMI) 23.9 Finger Stick Blood Glucose 156 Intake and Output for Last 24 Hours 09/21/18 09/22/18 09/23/18 23:59 23:59 23:59 Intake Total 300 / 300 Balance 300 / 300 Laboratory Tests Past 24 Hrs 09/23/18 09/23/18 08:25 08:25 WBC 24.8 H RBC 3.57 L Hgb 9.4 L Hct 28.4 L MCV 79.6 L MCH 26.3 L MCHC 33.1 RDW 18.3 H RDW Differential 52.6 H Plt Count 488 H MPV 8.4 Immature Gran % (Auto) 1.100 H Neut % (Auto) 91.2 H Lymph % (Auto) 5.7 L [place] % (Auto) 1.9 Eos % (Auto) 0.0 Baso % (Auto) 0.1 Absolute Neuts (auto) 22.6 H Absolute Lymphs (auto) 1.42 Total Counted Not Reportable Nucleated RBC % 0.2 Differential Comment COMMENT Absolute Retic 0.06 Sodium 133 L Potassium 4.7 Chloride 105 Carbon Dioxide 18.0 L Anion Gap 10 BUN 16 Creatinine 1.35 H Estim Creat Clear Calc 38.55 Est GFR (MDRD) Af Amer 53 L Est GFR (MDRD) Non-Af 44 L BUN/Creatinine Ratio 11.9 Glucose 139 H Calcium 8.8 Total Bilirubin 0.20 AST 16 ALT 13 Alkaline Phosphatase 157 H Total Protein 8.4 H Albumin 3.1 L Globulin 5.3 H Albumin/Globulin Ratio 0.6 L Clinical Impression(s) from Imaging Studies Chest X-Ray 09/23/18 07:55 IMPRESSION: There has been no change since prior study. Findings in keeping with interstitial fibrosis. Electronically Signed: Fredy Olmos MD at 8:44 EST , Service support , Assessment/Plan All Active Problems (Last Updated 10/01/17 @ 07:25 by Ivonne Sunshine) Cystitis (Acute) Acute metabolic encephalopathy (Acute) Sepsis (Acute) History of lung biopsy (Resolved) History of tubal ligation (Resolved) Costochondritis, acute (Acute) Acute upper respiratory infection (Acute) Bronchiectasis with acute exacerbation (Acute) Acute suppurative otitis media (Acute) Acute exacerbation of chronic obstructive pulmonary disease (Acute) Hypokalemia (Acute) Left otitis media (Acute) Hypokalemia (Acute) Leukocytosis (Acute) Chest pain (Acute) Pleuritic chest discomfort (Acute) Overdose (Acute) RECOMMENDATIONS: 1. Initiate on bronchodilators, prednisone and mucolytics 2. Start IV Zosyn therapy pending sputum culture results 3. Obtain sputum culture 4. Hold methotrexate and immunosuppression for now 5. Walking oximetry prior to discharge IMPRESSIONS: 1. Probable bronchiectasis exacerbation Bronchiectasis noted on imaging studies previously. Clinical suspicion for bronchiectasis exacerbation. Patient has received IV Solu-Medrol multiple times in the ER. Likely okay to continue with prednisone 40 mg p.o. daily. Patient would benefit from pulmonary toileting, mucolytic and bronchodilators. Patient will be at higher risk for resistant organisms, so initiation of Zosyn therapy empirically would be appropriate. Await sputum culture for further recommendations. 2. Sarcoidosis Unclear plan at this time. Patient is reporting she is following up with [facility] and appears to know providers names. Patient is stating that she is not on methotrexate at this time. Old records are not available for review. Patient has received significant immunosuppression through glucocorticoids. Likely okay to hold off on leflunomide and meth otrexate until patient can be evaluated by primary chemistry technical officer. Previous echocardiogram did show some diastolic dysfunction, but was grossly unchanged compared to 2009. This likely does not need to be repeated. 3. History of noncompliance/lack of transportation/repeated ER visits/chronic pain syndrome Complicates care, management, recovery and prognosis. Unclear immunosuppression at this time. This may be secondary to lack of follow-up or plans for alternative immunosuppression. Patient will be on prednisone therapy, so likely okay to hold on methotrexate. Code Visit Inpatient E&M: 47858 Init Hosp L3
[2018-09-23] MEDS: 0.9% NaCl Peripheral Flush Adult/Peds IV (15:23)
[2018-09-23] MEDS: Piperacil/Tazobactam 3.375 GM/50 ML ML IV ×2 (15:23→21:55)
--- NOTE | 2018-09-23 15:57 | CHAPLAIN ---
Type of Pastoral Visit _x__ Initial Visit ___ Follow-up Visit ___ On-call Visit ___ General Patient Visit ___ Spiritual Assessment ___ Family Conference ___ Bereavement ___ Rapid Response ___ Code Blue ___ Other (describe below) Pastoral Care Referral From _x__ Patient ___ Family ___ Nurse ___ Physician ___ Site Planner ___ Outsoles Channel Opener ___ Other (describe below) Sacrament/Intervention _x__ Active listening ___ Anointing ___ Congregation ___ Bereavement ___ Communion _x__ Diya exploration ___ _x__ Life review _x__ Prayer ___ Reconciliation ___ Sacrament of Sick _x__ Supportive presence ___ Wedding ___ Other (describe below) Pastoral Comments
[2018-09-23] MEDS: guaiFENesin 10 ML UDC (200MG/10ML) 5 ML PO ×2 (16:07→22:12)
[2018-09-23] MEDS: Loratadine 10 MG Tablet 5 MG PO (16:17)
[2018-09-23] MEDS: Gabapentin 600 MG Tablet PO ×2 (16:18→21:56)
[2018-09-23] MEDS: hydrOXYzine PAM 25 MG Capsule 50 MG PO (16:20)
[2018-09-23] MEDS: Sodium Chloride 0.65% 1 SPRAY SPRAY.BTL 2 SPRAY NASAL (17:36)
--- NOTE | 2018-09-23 18:03 | PCM.HP.STD ---
Problem List (1) Bronchiectasis Status: Chronic Qualifiers: Bronchiectasis type: with acute exacerbation (2) Acute exacerbation of chronic obstructive pulmonary disease Status: Acute (3) Chronic pain Status: Chronic Qualifiers: (4) HTN (hypertension) Status: Chronic Qualifiers: (5) Sarcoidosis Status: Chronic History of Present Illness Date of Admission: 09/23/18 Chief Complaint: Shortness of breath The patient is a 52 year old F PMH as below who presents with shortness of breath after coming to the ER on the 2 previous days with the same complaint. She had initially been worked up and was thought to be having a reactive airway disease and was sent home after a dose of steroids with prescription for steroids and doxycycline. It does not appear that she picked up either prescription and presented back to the ER today, and was admitted for shortness of breath. In the ER she did not become hypoxic and did not necessitate oxygen therapy, however because her symptoms have been persistent and she had presented multiple times to the ER it was felt that admission would be beneficial. She does have an elevated white count of 24.8, which does appear to be fairly chronic and also she did have a significant dose of steroids yesterday so some of it is also likely related to her steroid use. Her chest x-ray was unremarkable except for interstitial fibrosis. She also has chronic anemia as well as chronic thrombocytosis. Past Medical History Past Medical History (Chronic Problems): Chronic Problems (Last Updated 10/01/17 @ 07:25 by Ivonne Sunshine) Chronic respiratory failure (Chronic) Chronic cough (Chronic) Bronchiectasis (Chronic) Asthma (Chronic) COPD (chronic obstructive pulmonary disease) (Chronic) Chronic pain (Chronic) Cough (Chronic) HTN (hypertension) (Chronic) Sarcoidosis (Chronic) Medical History: Medical History (Last Updated 10/01/17 @ 07:25 by Ivonne Sunshine) Costochondritis, acute (Acute) M94.0 Acute upper respiratory infection (Acute) J06.9 Chronic cough (Chronic) R05 Bronchiectasis with acute exacerbation (Acute) J47.1 Acute suppurative otitis media (Acute) H66.009 Bronchiectasis (Chronic) J47.9 Acute exacerbation of chronic obstructive pulmonary disease (Acute) J44.1 Asthma (Chronic) J45.909 COPD (chronic obstructive pulmonary disease) (Chronic) J44.9 Chronic pain (Chronic) G89.29 Hypokalemia (Acute) E87.6 Left otitis media (Acute) H66.92 Hypokalemia (Acute) E87.6 Leukocytosis (Acute) D72.829 Chest pain (Acute) R07.9 unknown etiology Pleuritic chest discomfort (Acute) Cough (Chronic) R05 Overdose (Acute) T50.901A HTN (hypertension) (Chronic) I10 Sarcoidosis (Chronic) D86.9 Allergies cephalexin monohydrate [From Keflex] Allergy (Mild, Verified 09/23/18 07:49) Itching doxycycline Adverse Reaction (Verified 09/23/18 07:49) Vomiting moxifloxacin HCl [From Avelox] Adverse Reaction (Verified 09/23/18 07:49) Vomiting Home Medications: Ambulatory Orders Medication Instructions Recorded Albuterol Inhaler [Ventolin Hfa] 1 - 2 puff INHALATION Q6H PRN PRN 09/05/16 Losartan Potassium [Cozaar] 50 mg PO BID 09/06/16 HydrOXYzine [Atarax] 50 mg PO Q8H PRN PRN 10/12/16 Leflunomide 20 mg PO DAILY 07/31/17 Albuterol Aerosols [Ventolin 2.5 mg INHALATION Q4H PRN PRN 08/13/17 Aerosols] Duloxetine HCl 60 mg PO DAILY 01/17/18 Atorvastatin Calcium [Lipitor] 10 mg PO QHS #30 tab 01/19/18 Furosemide [Lasix] 20 mg PO DAILY PRN PRN 02/12/18 Ipratropium/Albuterol Respimat 1 puff INHALATION Q6H PRN PRN 02/12/18 [Combivent Respimat Inhal [place]] Amox/Clavulanate Tablet [Augmentin 875 mg PO Q12H #20 tab 09/21/18 Tablet] Guaifenesin [Tussin] 100 mg PO Q6H PRN PRN #60 ml 09/21/18 Hydrocodone/Acetaminophen [[place] 1 ea PO Q8 PRN #12 tab 09/22/18 5-325 Tablet] Prednisone 60 mg PO DAILY #15 tab 09/22/18 Albuterol Inhaler [Ventolin Hfa 1 - 2 puff INHALATION Q4H PRN PRN 09/23/18 (SP)] Clonidine HCl [Catapres] 0.2 mg PO QHS PRN PRN 09/23/18 Docusate Sodium 200 mg PO BID PRN PRN 09/23/18 Folic Acid 1 mg PO DAILY 09/23/18 Gabapentin 600 mg PO TID 09/23/18 Levocetirizine Dihydrochloride 5 mg PO DAILY 09/23/18 [Allergy Relief] Nortriptyline HCl [Pamelor] 10 - 20 mg PO QHS 09/23/18 Oxycodone HCl 10 mg PO TID PRN PRN 09/23/18 Oxygen, Home [Home Oxygen] 3 lpm NASAL QHS 09/23/18 Potassium Citrate [Urocit-K] 5 meq PO DAILY 09/23/18 Promethazine/Dextromethorphan 5 ml PO Q6H PRN PRN 09/23/18 [Promethazine-Dm Syrup] Tizanidine HCl [Zanaflex] 2 - 4 mg PO BID PRN PRN 09/23/18 Surgical History: Surgical History (Last Updated 10/01/17 @ 07:25 by Ivonne Sunshine) History of lung biopsy (Resolved) Z98.890 History of tubal ligation (Resolved) Z98.51 Surgical History: - - BLTL. 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 Denies: Fever, Weight Change HEENT: Denies: Head Aches, Sinus Congestion, Sinus Drainage Cardiovascular: Denies: Chest Pain, Palpitations Respiratory: Reports: Shortness of Breath. Denies: Cough, Shortness of breath at rest, Sputum production Gastrointestinal: Denies: Abdominal Pain, Nausea, Vomiting Genitourinary: Denies: Dysuria Musculoskeletal: Denies: Joint Pain, Joint Tenderness Skin: Denies: Rash, Wounds Neurological: Denies: Numbness, Tingling, Focal weakness Psychiatric: Denies: Anxiety, Depression Hematologic/ Lymphatic: Denies: Easy Bruising, Easy Bleeding VTE Information - Inpt Only VTE Present on Admission: No - Physical Exam General: Alert, Oriented x3, Cooperative, No apparent distress HEENT: Atraumatic, PERRLA, EOMI, Normocephalic Oral: Moist Mucosa Neck: Supple, No JVD, Trachea Midline Lungs: Clear to auscultation, Normal air movement, No rhonchi, No wheeze, No rales, Diminished Cardiovascular: Regular rate, Regular Rhythm, Normal S1, Normal S2, No murmurs, No rub noted, No Gallop Abdomen: Soft, Non Tender, Non-Distended, No Hepato-splenomegaly Extremities: No edema, Capillary Refill Less than 3 Seconds Skin: No rashes, No breakdown Neurological: Neuro grossly intact, Sensory exam intact to light touch and pain Psych/Mental Status: Normal Affect, Anxious Vital Signs Temp Pulse Resp BP Pulse Ox 97.5 F L 99 18 162/93 H 94 09/23/18 16:05 09/23/18 16:05 09/23/18 16:05 09/23/18 16:05 09/23/18 16:05 Oxygen Delivery Method Room Air Weight: 130 lb 11.746 oz Body Mass Index (BMI) 23.9 Finger Stick Blood Glucose 156 Intake and Output for Last 24 Hours 09/21/18 09/22/18 09/23/18 23:59 23:59 23:59 Intake Total 928 / 928 Balance 928 / 928 Laboratory Tests Past 24 Hrs 09/23/18 09/23/18 08:25 08:25 WBC 24.8 H RBC 3.57 L Hgb 9.4 L Hct 28.4 L MCV 79.6 L MCH 26.3 L MCHC 33.1 RDW 18.3 H RDW Differential 52.6 H Plt Count 488 H MPV 8.4 Immature Gran % (Auto) 1.100 H Neut % (Auto) 91.2 H Lymph % (Auto) 5.7 L [place] % (Auto) 1.9 Eos % (Auto) 0.0 Baso % (Auto) 0.1 Absolute Neuts (auto) 22.6 H Absolute Lymphs (auto) 1.42 Total Counted Not Reportable Nucleated RBC % 0.2 Differential Comment COMMENT Absolute Retic 0.06 Sodium 133 L Potassium 4.7 Chloride 105 Carbon Dioxide 18.0 L Anion Gap 10 BUN 16 Creatinine 1.35 H Estim Creat Clear Calc 38.55 Est GFR (MDRD) Af Amer 53 L Est GFR (MDRD) Non-Af 44 L BUN/Creatinine Ratio 11.9 Glucose 139 H Calcium 8.8 Total Bilirubin 0.20 AST 16 ALT 13 Alkaline Phosphatase 157 H Total Protein 8.4 H Albumin 3.1 L Globulin 5.3 H Albumin/Globulin Ratio 0.6 L Assessment/Plan All Active Problems (Last Updated 10/01/17 @ 07:25 by Ivonne Sunshine) Cystitis (Acute) Acute metabolic encephalopathy (Acute) Sepsis (Acute) History of lung biopsy (Resolved) History of tubal ligation (Resolved) Costochondritis, acute (Acute) Acute upper respiratory infection (Acute) Bronchiectasis with acute exacerbation (Acute) Acute suppurative otitis media (Acute) Acute exacerbation of chronic obstructive pulmonary disease (Acute) Hypokalemia (Acute) Left otitis media (Acute) Hypokalemia (Acute) Leukocytosis (Acute) Chest pain (Acute) Pleuritic chest discomfort (Acute) Overdose (Acute) 1. Shortness of breath secondary to bronchiectasis/sarcoidosis/chronic anemia/chronic leukocytosis/chronic thrombocytosis -She has significant sputum production that she describes as green phlegm -Obtain a sputum culture, in the meantime we will start Zosyn as she likely has very resistant organisms -She was supposed to be on prednisone 60 mg p.o., does not appear that she filled this prescription will continue it here -All of her dyscrasias on her CBC are likely related to her sarcoidosis and periods of exacerbation of the sarcoid or the bronchiectasis -She does follow-up with [facility] pulmonology, and recommend that she follow-up with them as soon as possible she states she has an appointment with him next Sunday -Continue with DuoNeb -She also states that she takes leflunomide, which will be continued here 2. Acute kidney injury/HTN/edema -Likely secondary to dehydration -We will start IV fluid for resuscitation and follow-up in the morning -We will hold her Lasix given her elevation in her creatinine, can continue her losartan 3. Chronic pain -We will continue with her home narcotic regimen -Continue with nortriptyline, and hydroxyzine DVT: Lovenox/SCDs Code Visit OBSV E&M: 54271 Initial observation care L3
[2018-09-23] MEDS: 0.9% Normal Saline 1,000 ML 100 ML IV (18:33)
[2018-09-23] MEDS: Losartan Potassium 50 MG Tablet PO (21:55)
[2018-09-23] MEDS: Atorvastatin Calcium 10 MG Tablet PO (21:56)
[2018-09-23] MEDS: Nortriptyline 10 MG Capsule PO (21:56)
[2018-09-23] MEDS: cloNIDine HCl 0.2 MG Tablet PO (22:56)
[2018-09-24] VITALS (10 sets, daily range): BP systolic 142–159; BP diastolic 82–122; PULSE 98–109; RESP 16–22; TEMP 36.3–36.9; O2SAT 94–100
[2018-09-24] MEDS: hydrOXYzine PAM 25 MG Capsule 50 MG PO ×3 (03:22→20:35)
[2018-09-24] MEDS: oxyCODONE 5 MG Tablet 10 MG PO ×3 (03:22→20:35)
[2018-09-24] MEDS: 0.9% Normal Saline 1,000 ML 100 ML IV (05:26)
[2018-09-24] MEDS: guaiFENesin 10 ML UDC (200MG/10ML) 5 ML PO ×2 (05:28→11:34)
[2018-09-24] MEDS: Gabapentin 600 MG Tablet PO ×3 (05:28→20:35)
[2018-09-24 06:41] LABS: Absolute Lymphocyte Count 2.05 X10^3/ul (0.83-4.51); Absolute Neutrophil Count 21.8 X10^3/uL (2.0-7.7); Basophil# 0.03 X10^3/uL; Basophil% 0.1 % (0-1); Eosinophil# 0.01 X10^3/uL; Hematocrit 24.9 % (37-47); Hemoglobin 8.5 g/dl (12.0-15.0); Lymphocyte # 2.05 X10^3/ul (4.0); Lymphocyte % 7.9 % (19-41); Mean Corp Hgb Conc 34.1 g/gl (32-36); Mean Corpuscular Hgb 26.3 pg (27.0-32.0); Mean Corpuscular Volume 77.1 fL (81-99); Mean Platelet Vol. 8.5 fl (6.2-12.0); Monocyte# 1.98 X10^3/uL; Monocyte% 7.6 % (0-10); Neutrophil # 21.76 X10^3/uL (2.7-7.7); Neutrophil % 83.4 % (47-70); Platelet Count 517 K/mm3 (150-450); RBC Distribution Width SD 45.1 fl (35.1-43.9); Red Blood Count 3.23 M/mm3 (4.2-5.4); White Blood Count 26.1 K/mm3 (4.4-11.0)
[2018-09-24 06:42] LABS: Anion Gap 9 (5-15); BUN 17 mg/dL (7-18); BUN/Creat Ratio 15.9 RATIO (10-20); Calcium,Total 8.5 mg/dL (8.5-10.1); Chloride 109 mmol/L (98-107); Creatinine, Serum 1.07 mg/dL (0.55-1.02); Differential Indicated SCAN CRITERIA MET; EST Glomerular Filtration Rate 57 mL/min (>60); Est Glom Filt Rate - Afr Amer 69 mL/min (>60); Estimated Creatinine Clearance 48.64 ml/min; Glucose 110 mg/dL (74-106); POSITIVE COUNT NO; POSITIVE DIFFERENTIAL YES; POSITIVE MORPHOLOGY NO; Potassium 4.8 mmol/L (3.5-5.1); Sodium Level 136 mmol/L (136-145)
[2018-09-24 06:54] LABS: Platelet Estimate SLT INC (ADEQ)
[2018-09-24 06:55] LABS: Anisocytosis 2+; Hypochromasia 2+; Polychromasia RARE; Target Cells 2+
[2018-09-24 06:56] LABS: Microcytosis 2+
[2018-09-24] MEDS: Ipratropium/Albuterol Sulfate 3 ML AMPUL.NEB INHALATION ×3 (06:58→19:22)
[2018-09-24] MEDS: Losartan Potassium 50 MG Tablet PO ×2 (09:13→20:35)
[2018-09-24] MEDS: DULoxetine Hcl 60 MG Capsule PO (09:13)
[2018-09-24] MEDS: Folic Acid 1 MG Tablet PO (09:14)
[2018-09-24] MEDS: Leflunomide 10 MG TABLET 20 MG PO (09:14)
[2018-09-24] MEDS: Loratadine 10 MG Tablet 5 MG PO (09:15)
[2018-09-24] MEDS: predniSONE 20 MG Tablet 60 MG PO (09:15)
[2018-09-24] MEDS: Enoxaparin 40 MG/0.4 ML Syringe SC (09:18)
--- NOTE | 2018-09-24 11:08 | PCM.PROGNOTE ---
Subjective: Patient did okay overnight. Patient continues to report a productive cough, but overall feels subjectively improved. Patient believes her shoulder pain is slightly improved compared to previous. Patient reports no significant change in sputum consistency or color - Physical Exam General: Alert, Oriented x3, Cooperative, No apparent distress, - - Appears older than stated age. Speaking in full sentences. HEENT: Atraumatic, PERRLA, EOMI, Normocephalic, - - No scleral icterus or injection noted. Oral: Moist Mucosa, No Gingival or Mucosal Lesions/ Ulcerations Neck: Supple, No JVD, No Nodes, Trachea Midline Lungs: Rales, Wheezes - Sporadic, but improved with coughing, - - Symmetric expansion. No dullness to percussion. Cardiovascular: Regular rate, Regular Rhythm, Normal S1, Normal S2, No murmurs, No rub noted, No Gallop Abdomen: Bowel Sounds Present, Soft, Non Tender, Non-Distended Extremities: No cyanosis, No edema, Clubbing Skin: No rashes, No breakdown Musculoskeletal: No Tenderness to Palpation of Joints or Extremities Lymphatic: No Cervical, Supraclavicular, or Inguinal Adenopathy Neurological: Cranial nerves II-XII grossly intact, Neuro grossly intact, Motor Exam 5/5 strength throughout Psych/Mental Status: Alert and oriented to time, place, person, mood and affect Vital Signs Temp Pulse Resp BP Pulse Ox 36.7 C 98 16 148/82 H 96 09/24/18 09:22 09/24/18 09:22 09/24/18 09:22 09/24/18 09:22 09/24/18 09:22 Oxygen Delivery Method Room Air Weight: 59.3 kg Body Mass Index (BMI) 23.9 Finger Stick Blood Glucose 156 Intake and Output for Last 24 Hours 09/22/18 09/23/18 09/24/18 23:59 23:59 23:59 Intake Total 928 / 928 1825 / 1825 Output Total 1100 / 1100 Balance 928 / 928 725 / 725 Microbiology Past 72 Hours 09/23/18 15:55 Respiratory Culture - Preliminary Sputum, Expectorated/Coughed Gram negative rashida Laboratory Tests Past 24 Hrs 09/24/18 09/24/18 05:42 05:42 WBC 26.1 H RBC 3.23 L Hgb 8.5 L Hct 24.9 L MCV 77.1 L MCH 26.3 L MCHC 34.1 RDW 17.0 H RDW Differential 45.1 H Plt Count 517 H MPV 8.5 Immature Gran % (Auto) 1.000 H Neut % (Auto) 83.4 H Lymph % (Auto) 7.9 L [place] % (Auto) 7.6 Eos % (Auto) 0.0 Baso % (Auto) 0.1 Absolute Neuts (auto) 21.8 H Absolute Lymphs (auto) 2.05 Total Counted Not Reportable Differential Comment Diff Path Review May foll Platelet Estimate SLT INC Polychromasia RARE Hypochromasia 2+ Anisocytosis 2+ Microcytosis 2+ Target Cells 2+ Sodium 136 Potassium 4.8 Chloride 109 H Carbon Dioxide 18.0 L Anion Gap 9 BUN 17 Creatinine 1.07 H Estim Creat Clear Calc 48.64 Est GFR (MDRD) Af Amer 69 Est GFR (MDRD) Non-Af 57 L BUN/Creatinine Ratio 15.9 Glucose 110 H Calcium 8.5 Medical Necessity - Tobacco Use Smoking Status: Former smoker Tobacco Use: Cigarettes Assessment/Plan All Active Problems (Last Updated 10/01/17 @ 07:25 by Ivonne Sunshine) Cystitis (Acute) Acute metabolic encephalopathy (Acute) Sepsis (Acute) History of lung biopsy (Resolved) History of tubal ligation (Resolved) Costochondritis, acute (Acute) Acute upper respiratory infection (Acute) Bronchiectasis with acute exacerbation (Acute) Acute suppurative otitis media (Acute) Acute exacerbation of chronic obstructive pulmonary disease (Acute) Hypokalemia (Acute) Left otitis media (Acute) Hypokalemia (Acute) Leukocytosis (Acute) Chest pain (Acute) Pleuritic chest discomfort (Acute) Overdose (Acute) RECOMMENDATIONS: 1. Continue on bronchodilators, prednisone and mucolytics 2. Continue IV Zosyn therapy pending sputum culture results 3. Increase activity as tolerated 4. Hold methotrexate and immunosuppression for now 5. Walking oximetry prior to discharge IMPRESSIONS: 1. Probable bronchiectasis exacerbation Bronchiectasis noted on imaging studies previously. Clinical suspicion for bronchiectasis exacerbation. Patient has received IV Solu-Medrol multiple times in the ER. Likely okay to continue with prednisone 40 mg p.o. daily. Patient would benefit from pulmonary toileting, mucolytic and bronchodilators. Patient is already growing a gram-negative rashida from her sputum. Clinical suspicion for Pseudomonas, but sensitivities will be important for discharge. Await sputum culture for further recommendations. 2. Sarcoidosis Unclear plan at this time. Patient is reporting she is following up with [facility] and appears to know providers names. Patient is stating that she is not on methotrexate at this time. Old records are not available for review. Patient has received significant immunosuppression through glucocorticoids. Likely okay to hold off on leflunomide and methotrexate until patient can be evaluated by primary seed technician. Previous echocardiogram did show some diastolic dysfunction, but was grossly unchanged compared to 2009. This likely does not need to be repeated. 3. History of noncompliance/lack of transportation/repeated ER visits/chronic pain syndrome Complicates care, management, recovery and prognosis. Unclear immunosuppression at this time. This may be secondary to lack of follow-up or plans for alternative immunosuppression. Patient will be on prednisone therapy, so likely okay to hold on methotrexate. Code Visit Inpatient E&M: 65181 Subs Hosp L2
--- NOTE | 2018-09-24 13:15 | CASEMGMT ---
RN CM Face to Face with patient for initial transition planning/care coordination assessment. RN CM introduced self and role at [facility]. Patient lying in bed, alert and oriented. Patient willing to participate in assessment and is able to answer all questions appropriately. Care providers, pharmacy, and demographics verified. Patient wishes to discharge home, denies need for home health at this time. Patient states she has no further needs or concerns at this time. CM to follow for discharge planning needs that may arise. PCP: John Sears Specialists: Vinicio Mix; Parker heating technician Preferred Pharmacy: [facility] Insurance: [employer] Prescription Benefit: yes Living Will/HPOA: None LNOK: Living Arrangements: Patient lives with in small 1 story home with 2 steps to enter the home. Patient states she is independent Transportation: DME/HHC: Patient states she has a nebulizer machine and oxygen 3lpm at night through [facility]. Patient denies cpap or bipap at home. Patient denies previous HHC or SNF. Disposition Plan: Patient to discharge home with family support and follow-up plans in place. Dominique MONREAL, RN, CM
--- NOTE | 2018-09-24 14:06 | PCM.PN.HOSP ---
Subjective: Feels much better, her breathing is improved as is her pain in her shoulder. Vitals/I&O's: Vital Signs Temp Pulse Resp BP Pulse Ox 98.4 F 105 H 18 144/93 H 94 09/24/18 11:36 09/24/18 12:44 09/24/18 12:44 09/24/18 11:36 09/24/18 11:36 Oxygen Delivery Method Room Air Weight: 130 lb 11.746 oz Body Mass Index (BMI) 23.9 Finger Stick Blood Glucose 156 Intake and Output for Last 24 Hours 09/22/18 09/23/18 09/24/18 23:59 23:59 23:59 Intake Total 928 / 928 2840 / 2840 Output Total 1900 / 1900 Balance 928 / 928 940 / 940 General: Alert, Oriented x3, Cooperative, No apparent distress HEENT: Atraumatic, PERRLA, EOMI, Normocephalic Oral: Moist Mucosa Neck: Supple, No JVD, Trachea Midline Lungs: Clear to auscultation, Normal air movement, No rhonchi, No wheeze, No rales, Diminished Cardiovascular: Regular rate, Regular Rhythm, Normal S1, Normal S2, No murmurs, No rub noted, No Gallop Abdomen: Soft, Non Tender, Non-Distended, No Hepato-splenomegaly Extremities: No edema, Capillary Refill Less than 3 Seconds Skin: No rashes, No breakdown Neurological: Neuro grossly intact, Sensory exam intact to light touch and pain Psych/Mental Status: Normal Affect, Anxious Microbiology Past 72 Hours 09/23/18 15:55 Sputum, Expectorated/Coughed Gram Stain - Final 09/23/18 15:55 Sputum, Expectorated/Coughed Respiratory Culture - Preliminary Gram negative rashida Laboratory Results 09/24/18 05:42: WBC 26.1 H, RBC 3.23 L, Hgb 8.5 L, Hct 24.9 L, MCV 77.1 L, MCH 26.3 L, MCHC 34.1, RDW 17.0 H, RDW Differential 45.1 H, Plt Count 517 H, MPV 8.5, Immature Gran % (Auto) 1.000 H, Neut % (Auto) 83.4 H, Lymph % (Auto) 7.9 L, [place] % (Auto) 7.6, Eos % (Auto) 0.0, Baso % (Auto) 0.1, Absolute Neuts (auto) 21.8 H, Absolute Lymphs (auto) 2.05, Total Counted Not Reportable, Differential Comment , Diff Path Review May foll, Platelet Estimate SLT INC, Polychromasia RARE, Hypochromasia 2+, Anisocytosis 2+, Microcytosis 2+, Target Cells 2+ 09/24/18 05:42: Sodium 136, Potassium 4.8, Chloride 109 H, Carbon Dioxide 18.0 L, Anion Gap 9, BUN 17, Creatinine 1.07 H, Estim Creat Clear Calc 48.64, Est GFR (MDRD) Af Amer 69, Est GFR (MDRD) Non-Af 57 L, BUN/Creatinine Ratio 15.9, Glucose 110 H, Calcium 8.5 Current Medications Acetaminophen (Tylenol) 650 mg PO Q6H PRN PRN PRN Reason: PAIN Albuterol/Ipratropium (Duoneb) 3 ml INHALATION Q6HWA.RT [facility] Last Admin: 09/24/18 12:43 Dose: 3 ml Atorvastatin Calcium (Lipitor) 10 mg PO QHS [facility] Last Admin: 09/23/18 21:56 Dose: 10 mg Clonidine (Catapres) 0.2 mg PO QHS PRN PRN PRN Reason: hot flush prevention Last Admin: 09/23/18 22:56 Dose: 0.2 mg Docusate Sodium (Colace) 200 mg PO BID PRN PRN PRN Reason: Constipation Duloxetine HCl (Cymbalta) 60 mg PO DAILY [facility] Last Admin: 09/24/18 09:13 Dose: 60 mg Enoxaparin Sodium (Lovenox) 40 mg SC DAILY@1000 [facility] Last Admin: 09/24/18 09:18 Dose: 40 mg Folic Acid (Folic Acid) 1 mg PO DAILY [facility] Last Admin: 09/24/18 09:14 Dose: 1 mg Furosemide (Lasix) 20 mg PO DAILY PRN PRN PRN Reason: Swelling Gabapentin (Neurontin) 600 mg PO TID [facility] Last Admin: 09/24/18 05:28 Dose: 600 mg Guaifenesin (Robitussin) 5 ml PO Q6H PRN PRN PRN Reason: COUGH Last Admin: 09/24/18 11:34 Dose: 5 ml Hydroxyzine Pamoate (Vistaril Pamoate Capsule) 50 mg PO Q8H PRN PRN PRN Reason: SLEEP/ANIXETY Last Admin: 09/24/18 11:30 Dose: 50 mg Piperacillin Sod/Tazobactam (Sod 3.375 gm/ Sodium Chloride) 50 mls @ 12.5 mls/hr IV Q8 [facility] Last Admin: 09/24/18 05:29 Dose: 12.5 mls/hr Sodium Chloride () 1,000 mls @ 100 mls/hr IV .Q10H [facility] Last Admin: 09/24/18 05:26 Dose: 100 mls/hr Leflunomide (Leflunomide) 20 mg PO DAILY [facility] Last Admin: 09/24/18 09:14 Dose: 20 mg Loratadine (Claritin) 5 mg PO DAILY [facility] Last Admin: 09/24/18 09:15 Dose: 5 mg Losartan Potassium (Cozaar) 50 mg PO BID [facility] Last Admin: 09/24/18 09:13 Dose: 50 mg Magnesium Hydroxide (Milk Of Magnesia) 30 ml PO DAILY PRN PRN PRN Reason: Constipation Nortriptyline HCl (Pamelor) 10 - 20 mg PO QHS [facility] Last Admin: 09/23/18 21:56 Dose: 20 mg Oxycodone HCl (Oxyir) 10 mg PO TID PRN PRN PRN Reason: PAIN Last Admin: 09/24/18 11:30 Dose: 10 mg Prednisone () 60 mg PO DAILY [facility] Last Admin: 09/24/18 09:15 Dose: 60 mg Sodium Chloride () 5 - 15 ml IV UD PRN PRN Reason: SALINE FLUSH Last Admin: 09/23/18 15:23 Dose: 10 ml Sodium Chloride ([place] Nasal [place]) 2 spray NASAL TID PRN PRN PRN Reason: NASAL DRYNESS Last Admin: 09/23/18 17:36 Dose: 2 spray Medical Necessity - Tobacco Use Smoking Status: Former smoker Tobacco Use: Cigarettes Assessment/Plan All Active Problems (Last Updated 10/01/17 @ 07:25 by Ivonne Sunshine) Cystitis (Acute) Acute metabolic encephalopathy (Acute) Sepsis (Acute) History of lung biopsy (Resolved) History of tubal ligation (Resolved) Costochondritis, acute (Acute) Acute upper respiratory infection (Acute) Bronchiectasis with acute exacerbation (Acute) Acute suppurative otitis media (Acute) Acute exacerbation of chronic obstructive pulmonary disease (Acute) Hypokalemia (Acute) Left otitis media (Acute) Hypokalemia (Acute) Leukocytosis (Acute) Chest pain (Acute) Pleuritic chest discomfort (Acute) Overdose (Acute) 1. Shortness of breath secondary to bronchiectasis/sarcoidosis/chronic anemia/chronic leukocytosis/chronic thrombocytosis -She has significant sputum production that she describes as green phlegm, sputum is growing gram-negative rashida therefore she will need to stay until that can be isolated and sensitivities determined. -in the meantime we will start Zosyn as she likely has very resistant organisms -She was supposed to be on prednisone 60 mg p.o., does not appear that she filled this prescription will continue it here -All of her dyscrasias on her CBC are likely related to her sarcoidosis and periods of exacerbation of the sarcoid or the bronchiectasis -She does follow-up with [facility] pulmonology, and recommend that she follow-up with them as soon as possible she states she has an appointment with him next Sunday -Continue with DuoNeb -She also states that she takes leflunomide, which will be continued here 2. Acute kidney injury/HTN/edema -Likely secondary to dehydration, creatinine is improved from 1.35 on admission to 1.07 -Continue with IV fluid for resuscitation and follow-up in the morning -We will hold her Lasix given her elevation in her creatinine, can continue her losartan 3. Chronic pain -We will continue with her home narcotic regimen -Continue with nortriptyline, and hydroxyzine DVT: Lovenox/SCDs Code Visit Inpatient E&M: 28359 Subs Hosp L2
--- NOTE | 2018-09-24 14:09 | PN_ITS ---
Subjective: Feels much better, her breathing is improved as is her pain in her shoulder. Vitals/I&O's: Vital Signs Temp Pulse Resp BP Pulse Ox 98.4 F 105 H 18 144/93 H 94 09/24/18 11:36 09/24/18 12:44 09/24/18 12:44 09/24/18 11:36 09/24/18 11:36 Oxygen Delivery Method Room Air Weight: 130 lb 11.746 oz Body Mass Index (BMI) 23.9 Finger Stick Blood Glucose 156 Intake and Output for Last 24 Hours 09/22/18 09/23/18 09/24/18 23:59 23:59 23:59 Intake Total 928 / 928 2840 / 2840 Output Total 1900 / 1900 Balance 928 / 928 940 / 940 General: Alert, Oriented x3, Cooperative, No apparent distress HEENT: Atraumatic, PERRLA, EOMI, Normocephalic Oral: Moist Mucosa Neck: Supple, No JVD, Trachea Midline Lungs: Clear to auscultation, Normal air movement, No rhonchi, No wheeze, No rales, Diminished Cardiovascular: Regular rate, Regular Rhythm, Normal S1, Normal S2, No murmurs, No rub noted, No Gallop Abdomen: Soft, Non Tender, Non-Distended, No Hepato-splenomegaly Extremities: No edema, Capillary Refill Less than 3 Seconds Skin: No rashes, No breakdown Neurological: Neuro grossly intact, Sensory exam intact to light touch and pain Psych/Mental Status: Normal Affect, Anxious Microbiology Past 72 Hours 09/23/18 15:55 Sputum, Expectorated/Coughed Gram Stain - Final 09/23/18 15:55 Sputum, Expectorated/Coughed Respiratory Culture - Preliminary Gram negative rashida Laboratory Results 09/24/18 05:42: WBC 26.1 H, RBC 3.23 L, Hgb 8.5 L, Hct 24.9 L, MCV 77.1 L, MCH 26.3 L, MCHC 34.1, RDW 17.0 H, RDW Differential 45.1 H, Plt Count 517 H, MPV 8.5, Immature Gran % (Auto) 1.000 H, Neut % (Auto) 83.4 H, Lymph % (Auto) 7.9 L, [place] % (Auto) 7.6, Eos % (Auto) 0.0, Baso % (Auto) 0.1, Absolute Neuts (auto) 21.8 H, Absolute Lymphs (auto) 2.05, Total Counted Not Reportable, Differential Comment , Diff Path Review May foll, Platelet Estimate SLT INC, Polychromasia RARE, Hypochromasia 2+, Anisocytosis 2+, Microcytosis 2+, Target Cells 2+ 09/24/18 05:42: Sodium 136, Potassium 4.8, Chloride 109 H, Carbon Dioxide 18.0 L , Anion Gap 9, BUN 17, Creatinine 1.07 H, Estim Creat Clear Calc 48.64, Est GFR (MDRD) Af Amer 69, Est GFR (MDRD) Non-Af 57 L, BUN/Creatinine Ratio 15.9, Glucose 110 H, Calcium 8.5 Current Medications Acetaminophen (Tylenol) 650 mg PO Q6H PRN PRN PRN Reason: PAIN Albuterol/Ipratropium (Duoneb) 3 ml INHALATION Q6HWA.RT [facility] Last Admin: 09/24/18 12:43 Dose: 3 ml Atorvastatin Calcium (Lipitor) 10 mg PO QHS [facility] Last Admin: 09/23/18 21:56 Dose: 10 mg Clonidine (Catapres) 0.2 mg PO QHS PRN PRN PRN Reason: hot flush prevention Last Admin: 09/23/18 22:56 Dose: 0.2 mg Docusate Sodium (Colace) 200 mg PO BID PRN PRN PRN Reason: Constipation Duloxetine HCl (Cymbalta) 60 mg PO DAILY [facility] Last Admin: 09/24/18 09:13 Dose: 60 mg Enoxaparin Sodium (Lovenox) 40 mg SC DAILY@1000 [facility] Last Admin: 09/24/18 09:18 Dose: 40 mg Folic Acid (Folic Acid) 1 mg PO DAILY [facility] Last Admin: 09/24/18 09:14 Dose: 1 mg Furosemide (Lasix) 20 mg PO DAILY PRN PRN PRN Reason: Swelling Gabapentin (Neurontin) 600 mg PO TID [facility] Last Admin: 09/24/18 05:28 Dose: 600 mg Guaifenesin (Robitussin) 5 ml PO Q6H PRN PRN PRN Reason: COUGH Last Admin: 09/24/18 11:34 Dose: 5 ml Hydroxyzine Pamoate (Vistaril Pamoate Capsule) 50 mg PO Q8H PRN PRN PRN Reason: SLEEP/ANIXETY Last Admin: 09/24/18 11:30 Dose: 50 mg Piperacillin Sod/Tazobactam (Sod 3.375 gm/ Sodium Chloride) 50 mls @ 12.5 mls/hr IV Q8 [facility] Last Admin: 09/24/18 05:29 Dose: 12.5 mls/hr Sodium Chloride () 1,000 mls @ 100 mls/hr IV .Q10H [facility] Last Admin: 09/24/18 05:26 Dose: 100 mls/hr Leflunomide (Leflunomide) 20 mg PO DAILY [facility] Last Admin: 09/24/18 09:14 Dose: 20 mg Loratadine (Claritin) 5 mg PO DAILY [facility] Last Admin: 09/24/18 09:15 Dose: 5 mg Losartan Potassium (Cozaar) 50 mg PO BID [facility] Last Admin: 09/24/18 09:13 Dose: 50 mg Magnesium Hydroxide (Milk Of Magnesia) 30 ml PO DAILY PRN PRN PRN Reason: Constipation Nortriptyline HCl (Pamelor) 10 - 20 mg PO QHS [facility] Last Admin: 09/23/18 21:56 Dose: 20 mg Oxycodone HCl (Oxyir) 10 mg PO TID PRN PRN PRN Reason: PAIN Last Admin: 09/24/18 11:30 Dose: 10 mg Prednisone () 60 mg PO DAILY [facility] Last Admin: 09/24/18 09:15 Dose: 60 mg Sodium Chloride () 5 - 15 ml IV UD PRN PRN Reason: SALINE FLUSH Last Admin: 09/23/18 15:23 Dose: 10 ml Sodium Chloride ([place] Nasal [place]) 2 spray NASAL TID PRN PRN PRN Reason: NASAL DRYNESS Last Admin: 09/23/18 17:36 Dose: 2 spray Medical Necessity - Tobacco Use Smoking Status: Former smoker Tobacco Use: Cigarettes Assessment/Plan All Active Problems (Last Updated 10/01/17 @ 07:25 by Ivonne Sunshine) Cystitis (Acute) Acute metabolic encephalopathy (Acute) Sepsis (Acute) History of lung biopsy (Resolved) History of tubal ligation (Resolved) Costochondritis, acute (Acute) Acute upper respiratory infection (Acute) Bronchiectasis with acute exacerbation (Acute) Acute suppurative otitis media (Acute) Acute exacerbation of chronic obstructive pulmonary disease (Acute) Hypokalemia (Acute) Left otitis media (Acute) Hypokalemia (Acute) Leukocytosis (Acute) Chest pain (Acute) Pleuritic chest discomfort (Acute) Overdose (Acute) 1. Shortness of breath secondary to bronchiectasis/sarcoidosis/chronic anemia/chronic leukocytosis/chronic thrombocytosis -She has significant sputum production that she describes as green phlegm, sputum is growing gram-negative rashida therefore she will need to stay until that can be isolated and sensitivities determined. -in the meantime we will start Zosyn as she likely has very resistant organisms -She was supposed to be on prednisone 60 mg p.o., does not appear that she filled this prescription will continue it here -All of her dyscrasias on her CBC are likely related to her sarcoidosis and periods of exacerbation of the sarcoid or the bronchiectasis -She does follow-up with [facility] pulmonology, and recommend that she follow-up with them as soon as possible she states she has an appointment with him next Sunday -Continue with DuoNeb -She also states that she takes leflunomide, which will be continued here 2. Acute kidney injury/HTN/edema -Likely secondary to dehydration, creatinine is improved from 1.35 on admission to 1.07 -Continue with IV fluid for resuscitation and follow-up in the morning -We will hold her Lasix given her elevation in her creatinine, can continue her losartan 3. Chronic pain -We will continue with her home narcotic regimen -Continue with nortriptyline, and hydroxyzine DVT: Lovenox/SCDs Code Visit Inpatient E&M: 59571 Subs Hosp L2
[2018-09-24] MEDS: Acetaminophen 325 MG Tablet 650 MG PO ×2 (14:12→20:41)
[2018-09-24 14:53] LABS: Pathologist Review Reviewed
[2018-09-24] MEDS: guaiFENesin 10 ML UDC (200MG/10ML) PO (17:44)
[2018-09-24] MEDS: Nortriptyline 10 MG Capsule PO (20:35)
[2018-09-24] MEDS: Atorvastatin Calcium 10 MG Tablet PO (20:35)
[2018-09-24] MEDS: cloNIDine HCl 0.2 MG Tablet PO (20:36)
[2018-09-25 02:15] VITALS: BP 148/78; PULSE 94; RESP 18; TEMP 36.7; O2SAT 96
[2018-09-25] MEDS: Acetaminophen 325 MG Tablet 650 MG PO ×2 (03:04→10:57)
[2018-09-25] MEDS: oxyCODONE 5 MG Tablet 10 MG PO ×2 (03:05→10:57)
[2018-09-25] MEDS: guaiFENesin 10 ML UDC (200MG/10ML) PO ×2 (03:09→09:07)
[2018-09-25] MEDS: hydrOXYzine PAM 25 MG Capsule 50 MG PO ×2 (04:05→11:00)
[2018-09-25] MEDS: Gabapentin 600 MG Tablet PO (05:57)
[2018-09-25 06:03] LABS: Absolute Lymphocyte Count 3.03 X10^3/ul (0.83-4.51); Absolute Neutrophil Count 17.1 X10^3/uL (2.0-7.7); Basophil# 0.01 X10^3/uL; Hematocrit 25.3 % (37-47); Hemoglobin 8.5 g/dl (12.0-15.0); Lymphocyte # 3.03 X10^3/ul (4.0); Lymphocyte % 13.6 % (19-41); Mean Corp Hgb Conc 33.6 g/gl (32-36); Mean Corpuscular Volume 77.4 fL (81-99); Mean Platelet Vol. 8.4 fl (6.2-12.0); Monocyte# 1.94 X10^3/uL; Monocyte% 8.7 % (0-10); Neutrophil # 17.06 X10^3/uL (2.7-7.7); Neutrophil % 76.8 % (47-70); Platelet Count 535 K/mm3 (150-450); RBC Distribution Width CV 17.1 % (11.6-14.6); Red Blood Count 3.27 M/mm3 (4.2-5.4); White Blood Count 22.2 K/mm3 (4.4-11.0)
[2018-09-25 06:04] LABS: Differential Indicated SCAN CRITERIA MET; POSITIVE COUNT NO; POSITIVE DIFFERENTIAL YES; POSITIVE MORPHOLOGY NO
[2018-09-25 06:10] LABS: Anion Gap 8 (5-15); BUN 11 mg/dL (7-18); Calcium,Total 8.5 mg/dL (8.5-10.1); Chloride 108 mmol/L (98-107); Creatinine, Serum 0.84 mg/dL (0.55-1.02); EST Glomerular Filtration Rate 75 mL/min (>60); Est Glom Filt Rate - Afr Amer 91 mL/min (>60); Estimated Creatinine Clearance 61.96 ml/min; Glucose 96 mg/dL (74-106); Potassium 4.1 mmol/L (3.5-5.1); Sodium Level 137 mmol/L (136-145)
[2018-09-25 06:37] LABS: Hypochromasia 1+; Target Cells 2+
[2018-09-25 06:38] LABS: Anisocytosis 1+; Platelet Estimate SLT INC (ADEQ); Polychromasia RARE
[2018-09-25] MEDS: Ipratropium/Albuterol Sulfate 3 ML AMPUL.NEB INHALATION (06:55)
[2018-09-25 07:05] VITALS: PULSE 101; RESP 19
[2018-09-25 07:15] VITALS: O2SAT 95
--- NOTE | 2018-09-25 07:17 | PCM.PROGNOTE ---
Subjective: Patient did well overnight. No acute issues were reported. Patient reports her sputum is lightening up in color and she feels subjectively improved compared to previous. Patient is denying any chest or shoulder pain at this time. Patient continues to tolerate room air. - Physical Exam General: Alert, Oriented x3, Cooperative, No apparent distress, - - Appears older than stated age. Speaking in full sentences. HEENT: Atraumatic, PERRLA, EOMI, Normocephalic, - - No scleral icterus or injection noted. Oral: Moist Mucosa, No Gingival or Mucosal Lesions/ Ulcerations Neck: Supple, No JVD, No Nodes, Trachea Midline Lungs: No wheeze, No rales, Diminished, Rhonchi, - - Symmetric expansion. No dullness to percussion. Rhonchi improved with coughing. Cardiovascular: Regular rate, Regular Rhythm, Normal S1, Normal S2, No murmurs, No rub noted, No Gallop Abdomen: Bowel Sounds Present, Soft, Non Tender, Non-Distended Extremities: No cyanosis, No edema, Capillary Refill Less than 3 Seconds, Clubbing Skin: No rashes, No breakdown Musculoskeletal: No Tenderness to Palpation of Joints or Extremities Lymphatic: No Cervical, Supraclavicular, or Inguinal Adenopathy Neurological: Cranial nerves II-XII grossly intact, Neuro grossly intact, Motor Exam 5/5 strength throughout Psych/Mental Status: Alert and oriented to time, place, person, mood and affect Vital Signs Temp Pulse Resp BP Pulse Ox 36.7 C 101 H 19 H 148/78 H 95 09/25/18 02:15 09/25/18 07:05 09/25/18 07:05 09/25/18 02:15 09/25/18 07:15 Oxygen Delivery Method Room Air Weight: 59.3 kg Body Mass Index (BMI) 23.9 Finger Stick Blood Glucose 156 Intake and Output for Last 24 Hours 09/23/18 09/24/18 09/25/18 23:59 23:59 23:59 Intake Total 928 / 928 3290 / 3290 1241 / 1241 Output Total 1900 / 1900 500 / 500 Balance 928 / 928 1390 / 1390 741 / 741 Microbiology Past 72 Hours 09/23/18 15:55 Gram Stain - Final Sputum, Expectorated/Coughed Respiratory Culture - Preliminary Gram negative rashida Laboratory Tests Past 24 Hrs 09/24/18 09/25/18 09/25/18 05:42 05:16 05:16 WBC 22.2 H RBC 3.27 L Hgb 8.5 L Hct 25.3 L MCV 77.4 L MCH 26.0 L MCHC 33.6 RDW 17.1 H RDW Differential 45.0 H Plt Count 535 H MPV 8.4 Immature Gran % (Auto) 0.900 Neut % (Auto) 76.8 H Lymph % (Auto) 13.6 L [place] % (Auto) 8.7 Eos % (Auto) 0.0 Baso % (Auto) 0.0 Absolute Neuts (auto) 17.1 H Absolute Lymphs (auto) 3.03 Total Counted Not Reportable Differential Comment Diff Path Review Reviewed May foll Platelet Estimate SLT INC Polychromasia RARE Hypochromasia 1+ Anisocytosis 1+ Target Cells 2+ Sodium 137 Potassium 4.1 Chloride 108 H Carbon Dioxide 21.0 Anion Gap 8 BUN 11 Creatinine 0.84 Estim Creat Clear Calc 61.96 Est GFR (MDRD) Af Amer 91 Est GFR (MDRD) Non-Af 75 BUN/Creatinine Ratio 13.0 Glucose 96 Calcium 8.5 Medical Necessity - Tobacco Use Smoking Status: Former smoker Tobacco Use: Cigarettes Assessment/Plan All Active Problems (Last Updated 10/01/17 @ 07:25 by Ivonne Sunshine) Cystitis (Acute) Acute metabolic encephalopathy (Acute) Sepsis (Acute) History of lung biopsy (Resolved) History of tubal ligation (Resolved) Costochondritis, acute (Acute) Acute upper respiratory infection (Acute) Bronchiectasis with acute exacerbation (Acute) Acute suppurative otitis media (Acute) Acute exacerbation of chronic obstructive pulmonary disease (Acute) Hypokalemia (Acute) Left otitis media (Acute) Hypokalemia (Acute) Leukocytosis (Acute) Chest pain (Acute) Pleuritic chest discomfort (Acute) Overdose (Acute) RECOMMENDATIONS: 1. Continue on bronchodilators, prednisone and mucolytics 2. Continue IV Zosyn therapy pending sputum culture results 3. Increase activity as tolerated 4. Hold methotrexate and immunosuppression for now 5. Walking oximetry prior to discharge 6. Patient can likely be discharged once p.o. option is available from sensitivities. IMPRESSIONS: 1. Probable bronchiectasis exacerbation Bronchiectasis noted on imaging studies previously. Clinical suspicion for bronchiectasis exacerbation. Patient has received IV Solu-Medrol multiple times in the ER. Likely okay to continue with prednisone 40 mg p.o. daily. This will need to be weaned over the next 12-14 days. Patient would benefit from pulmonary toileting, mucolytic and bronchodilators. Patient is already growing a gram-negative rashida from her sputum. Clinical suspicion for Pseudomonas, but sensitivities will be important for discharge. If p.o. option is available, patient can likely be discharged with follow-up at the [facility] on appropriate antibiotics for 14-day course. 2. Sarcoidosis Unclear plan at this time. Patient is reporting she is following up with [facility] and appears to know providers names. Patient is stating that she is not on methotrexate at this time. Old records are not available for review. Patient has received significant immunosuppression through glucocorticoids. Likely okay to hold off on leflunomide and methotrexate until patient can be evaluated by primary pedodontist. Previous echocardiogram did show some diastolic dysfunction, but was grossly unchanged compared to 2009. This likely does not need to be repeated. 3. History of noncompliance/lack of transportation/repeated ER visits/chronic pain syndrome Complicates care, management, recovery and prognosis. Unclear immunosuppression at this time. This may be secondary to lack of follow-up or plans for alternative immunosuppression. Patient will be on prednisone therapy, so likely okay to hold on methotrexate. Code Visit Inpatient E&M: 22386 Subs Hosp L2
[2018-09-25 07:20] VITALS: BP 119/81; PULSE 104; RESP 18; TEMP 36.7; O2SAT 95
--- NOTE | 2018-09-25 07:20 | PN_ITS ---
Subjective: Patient did well overnight. No acute issues were reported. Patient reports her sputum is lightening up in color and she feels subjectively improved compared to previous. Patient is denying any chest or shoulder pain at this time. Patient continues to tolerate room air. - Physical Exam General: Alert, Oriented x3, Cooperative, No apparent distress, - - Appears older than stated age. Speaking in full sentences. HEENT: Atraumatic, PERRLA, EOMI, Normocephalic, - - No scleral icterus or injection noted. Oral: Moist Mucosa, No Gingival or Mucosal Lesions/ Ulcerations Neck: Supple, No JVD, No Nodes, Trachea Midline Lungs: No wheeze, No rales, Diminished, Rhonchi, - - Symmetric expansion. No dullness to percussion. Rhonchi improved with coughing. Cardiovascular: Regular rate, Regular Rhythm, Normal S1, Normal S2, No murmurs, No rub noted, No Gallop Abdomen: Bowel Sounds Present, Soft, Non Tender, Non-Distended Extremities: No cyanosis, No edema, Capillary Refill Less than 3 Seconds, Clubbing Skin: No rashes, No breakdown Musculoskeletal: No Tenderness to Palpation of Joints or Extremities Lymphatic: No Cervical, Supraclavicular, or Inguinal Adenopathy Neurological: Cranial nerves II-XII grossly intact, Neuro grossly intact, Motor Exam 5/5 strength throughout Psych/Mental Status: Alert and oriented to time, place, person, mood and affect Vital Signs Temp Pulse Resp BP Pulse Ox 36.7 C 101 H 19 H 148/78 H 95 09/25/18 02:15 09/25/18 07:05 09/25/18 07:05 09/25/18 02:15 09/25/18 07:15 Oxygen Delivery Method Room Air Weight: 59.3 kg Body Mass Index (BMI) 23.9 Finger Stick Blood Glucose 156 Intake and Output for Last 24 Hours 09/23/18 09/24/18 09/25/18 23:59 23:59 23:59 Intake Total 928 / 928 3290 / 3290 1241 / 1241 Output Total 1900 / 1900 500 / 500 Balance 928 / 928 1390 / 1390 741 / 741 Microbiology Past 72 Hours 09/23/18 15:55 Gram Stain - Final Sputum, Expectorated/Coughed Respiratory Culture - Preliminary Gram negative rashida Laboratory Tests Past 24 Hrs 09/24/18 09/25/18 09/25/18 05:42 05:16 05:16 WBC 22.2 H RBC 3.27 L Hgb 8.5 L Hct 25.3 L MCV 77.4 L MCH 26.0 L MCHC 33.6 RDW 17.1 H RDW Differential 45.0 H Plt Count 535 H MPV 8.4 Immature Gran % (Auto) 0.900 Neut % (Auto) 76.8 H Lymph % (Auto) 13.6 L [place] % (Auto) 8.7 Eos % (Auto) 0.0 Baso % (Auto) 0.0 Absolute Neuts (auto) 17.1 H Absolute Lymphs (auto) 3.03 Total Counted Not Reportable Differential Comment Diff Path Review Reviewed May foll Platelet Estimate SLT INC Polychromasia RARE Hypochromasia 1+ Anisocytosis 1+ Target Cells 2+ Sodium 137 Potassium 4.1 Chloride 108 H Carbon Dioxide 21.0 Anion Gap 8 BUN 11 Creatinine 0.84 Estim Creat Clear Calc 61.96 Est GFR (MDRD) Af Amer 91 Est GFR (MDRD) Non-Af 75 BUN/Creatinine Ratio 13.0 Glucose 96 Calcium 8.5 Medical Necessity - Tobacco Use Smoking Status: Former smoker Tobacco Use: Cigarettes Assessment/Plan All Active Problems (Last Updated 10/01/17 @ 07:25 by Ivonne Sunshine) Cystitis (Acute) Acute metabolic encephalopathy (Acute) Sepsis (Acute) History of lung biopsy (Resolved) History of tubal ligation (Resolved) Costochondritis, acute (Acute) Acute upper respiratory infection (Acute) Bronchiectasis with acute exacerbation (Acute) Acute suppurative otitis media (Acute) Acute exacerbation of chronic obstructive pulmonary disease (Acute) Hypokalemia (Acute) Left otitis media (Acute) Hypokalemia (Acute) Leukocytosis (Acute) Chest pain (Acute) Pleuritic chest discomfort (Acute) Overdose (Acute) RECOMMENDATIONS: 1. Continue on bronchodilators, prednisone and mucolytics 2. Continue IV Zosyn therapy pending sputum culture results 3. Increase activity as tolerated 4. Hold methotrexate and immunosuppression for now 5. Walking oximetry prior to discharge 6. Patient can likely be discharged once p.o. option is available from sensitivities. IMPRESSIONS: 1. Probable bronchiectasis exacerbation Bronchiectasis noted on imaging studies previously. Clinical suspicion for bronchiectasis exacerbation. Patient has received IV Solu-Medrol multiple times in the ER. Likely okay to continue with prednisone 40 mg p.o. daily. This will need to be weaned over the next 12-14 days. Patient would benefit from pulmonary toileting, mucolytic and bronchodilators. Patient is already growing a gram-negative rashida from her sputum. Clinical suspicion for Pseudomonas, but sensitivities will be important for discharge. If p.o. option is available, patient can likely be discharged with follow-up at the [facility] on appropriate antibiotics for 14-day course. 2. Sarcoidosis Unclear plan at this time. Patient is reporting she is following up with [facility] and appears to know providers names. Patient is stating that she is not on methotrexate at this time. Old records are not available for review. Patient has received significant immunosuppression through glucocorticoids. Likely okay to hold off on leflunomide and methotrexate until patient can be evaluated by primary crystallographer. Previous echocardiogram did show some diastolic dysfunction, but was grossly unchanged compared to 2009. This likely does not need to be repeated. 3. History of noncompliance/lack of transportation/repeated ER vi sits/chronic pain syndrome Complicates care, management, recovery and prognosis. Unclear immunosuppression at this time. This may be secondary to lack of follow-up or plans for alternative immunosuppression. Patient will be on prednisone therapy, so likely okay to hold on methotrexate. Code Visit Inpatient E&M: 86183 [facility] Hosp L2
[2018-09-25] MEDS: DULoxetine Hcl 60 MG Capsule PO (07:50)
[2018-09-25] MEDS: Folic Acid 1 MG Tablet PO (07:50)
[2018-09-25] MEDS: Losartan Potassium 50 MG Tablet PO (07:50)
[2018-09-25] MEDS: Leflunomide 10 MG TABLET 20 MG PO (07:51)
[2018-09-25] MEDS: predniSONE 20 MG Tablet 60 MG PO (07:53)
[2018-09-25] MEDS: Loratadine 10 MG Tablet 5 MG PO (07:53)
[2018-09-25] MEDS: Enoxaparin 40 MG/0.4 ML Syringe SC (07:54)
[2018-09-25 07:58] VITALS: BP 155/106; PULSE 107; RESP 18; TEMP 36.7; O2SAT 93
[2018-09-25 08:00] VITALS: O2SAT 95
--- NOTE | 2018-09-25 09:55 | PCM.DC ---
You will use the following diet at home:: Cardiac Your food should be the consistency of: Regular Your liquids should be the consistency of: Regular/Thin Discharge Activity: May not drive while taking narcotic pain medications. Call your doctor if you observe: Fever of 101 or Higher, Shortness of breath, Dizziness, Fainting spells, Chest pain, Increased palpitations (irregular heartbeat) Allergies/Adverse Reactions: Allergies cephalexin monohydrate [From Keflex] Allergy (Mild, Verified 09/23/18 07:49) Itching doxycycline Adverse Reaction (Verified 09/23/18 07:49) Vomiting moxifloxacin HCl [From Avelox] Adverse Reaction (Verified 09/23/18 07:49) Vomiting Medications to take at Discharge Albuterol Inhaler [Ventolin Hfa] 1 - 2 puff INHALATION Q6H PRN PRN 09/05/16 Losartan Potassium [Cozaar] 50 mg PO BID 09/06/16 HydrOXYzine [Atarax] 50 mg PO Q8H PRN PRN 10/12/16 Leflunomide 20 mg PO DAILY 07/31/17 Albuterol Aerosols [Ventolin Aerosols] 2.5 mg INHALATION Q4H PRN PRN 08/13/17 Duloxetine HCl 60 mg PO DAILY 01/17/18 Atorvastatin Calcium [Lipitor] 10 mg PO QHS #30 tab 01/19/18 Furosemide [Lasix] 20 mg PO DAILY PRN PRN 02/12/18 Ipratropium/Albuterol Respimat [Combivent Respimat Inhal [place]] 1 puff INHALATION Q6H PRN PRN 02/12/18 Guaifenesin [Tussin] 100 mg PO Q6H PRN PRN #60 ml 09/21/18 Hydrocodone/Acetaminophen [[place] 5-325 Tablet] 1 ea PO Q8 PRN #12 tab 09/22/18 Albuterol Inhaler [Ventolin Hfa] 1 - 2 puff INHALATION Q4H PRN PRN 09/23/18 Clonidine HCl [Catapres] 0.2 mg PO QHS PRN PRN 09/23/18 Docusate Sodium 200 mg PO BID PRN PRN 09/23/18 Folic Acid 1 mg PO DAILY 09/23/18 Gabapentin 600 mg PO TID 09/23/18 Levocetirizine Dihydrochloride [Allergy Relief] 5 mg PO DAILY 09/23/18 Nortriptyline HCl [Pamelor] 10 - 20 mg PO QHS 09/23/18 Oxycodone HCl 10 mg PO TID PRN PRN 09/23/18 Oxygen, Home [Home Oxygen] 3 lpm NASAL QHS 09/23/18 Potassium Citrate [Urocit-K] 5 meq PO DAILY 09/23/18 Promethazine/Dextromethorphan [Promethazine-Dm Syrup] 5 ml PO Q6H PRN PRN 09/23/18 Tizanidine HCl [Zanaflex] 2 - 4 mg PO BID PRN PRN 09/23/18 Ciprofloxacin HCl 500 mg PO BID #17 tablet 09/25/18 Prednisone 40 mg PO DAILY #15 tab 09/25/18 The following prescriptions were given: Prednisone 40 mg PO DAILY #15 tab Ciprofloxacin HCl 500 mg PO BID #17 tablet Primary Care Physician: John Sears MD [Primary Care Provider] - Please follow up with your Primary Care Physician in: 3-5 days Test Results: Test results from this visit will be discussed in further detail at your follow-up appointment, if applicable. Please Follow Up With: [facility] pulmonology and rheumatology
[2018-09-25] MEDS: oxyCODONE 5 MG Tablet PO (09:57)
--- NOTE | 2018-09-25 10:03 | DS.PCM_ITS ---
Discharge Date and Diagnosis Date of Admission: 09/23/18 Date of Discharge: 09/25/18 - Secondary Discharge Diagnosis Chronic Problems (Last Updated 10/01/17 @ 07:25 by Ivonne Sunshine) Chronic respiratory failure (Chronic) Chronic cough (Chronic) Bronchiectasis (Chronic) Asthma (Chronic) COPD (chronic obstructive pulmonary disease) (Chronic) Chronic pain (Chronic) Cough (Chronic) HTN (hypertension) (Chronic) Sarcoidosis (Chronic) Hospital Course and Treatment Imaging Results: CXR: IMPRESSION: There has been no change since prior study. Findings in keeping with interstitial fibrosis. Consults: Pulmonology Operations: None Procedures: None Summary of Care Provided: HPI: The patient is a 52 year old F PMH as below who presents with shortness of breath after coming to the ER on the 2 previous days with the same complaint. She had initially been worked up and was thought to be having a reactive airway disease and was sent home after a dose of steroids with prescription for steroids and doxycycline. It does not appear that she picked up either prescription and presented back to the ER today, and was admitted for shortness of breath. In the ER she did not become hypoxic and did not necessitate oxygen therapy, however because her symptoms have been persistent and she had presented multiple times to the ER it was felt that admission would be beneficial. She does have an elevated white count of 24.8, which does appear to be fairly chronic and also she did have a significant dose of steroids yesterday so some of it is also likely related to her steroid use. Her chest x-ray was unremarkable except for interstitial fibrosis. She also has chronic anemia as well as chronic thrombocytosis. Hospital Course: 1. Shortness of breath secondary to bronchiectasis/sarcoidosis/chronic anemia/chronic leukocytosis/chronic [id number]-old female with a history of sarcoid presented 3 times to the ER with shortness of breath. On the third ER she was admitted for bronchiectasis. Pulmonology was consulted and she was started on oral steroids as well as IV Zosyn. A sputum culture was obtained which demonstrated a pansensitive Pseudomonas, and she was discharged on 10 total days of antibiotics with Cipro 500 mg twice daily. She will need to follow-up with [facility] safety and health manager who is been managing her sarcoidosis. She also has albuterol inhalers and DuoNeb nebulizer at home. She will also continue steroids for 1 more week. She is supposed to see her primary care physician in 3-5 days. 2. Acute kidney injury/HTN/edema -on admission to the hospital her creatinine was elevated to 1.35 which was up from her baseline of 0.8. She had her Lasix held and she was given fluids for the first day while she was here. On the day of discharge her creatinine had returned to normal and she was restarted on her home Lasix at discharge she is to continue her losartan. 3. Her other medical diagnoses were evaluated and her home medications were continued where appropriate Objective: General: Alert, Oriented x3, Cooperative, No apparent distress HEENT: Atraumatic, PERRLA, EOMI, Normocephalic Oral: Moist Mucosa Neck: Supple, No JVD, Trachea Midline Lungs: Clear to auscultation, Normal air movement, No rhonchi, No wheeze, No rales, Diminished Cardiovascular: Regular rate, Regular Rhythm, Normal S1, Normal S2, No murmurs, No rub noted, No Gallop Abdomen: Soft, Non Tender, Non-Distended, No Hepato-splenomegaly Extremities: No edema, Capillary Refill Less than 3 Seconds Skin: No rashes, No breakdown Neurological: Neuro grossly intact, Sensory exam intact to light touch and pain Psych/Mental Status: Normal Affect, Anxious - Physical Exam Vital Signs Temp Pulse Resp BP Pulse Ox 98.1 F 107 H 18 155/106 H 95 09/25/18 07:58 09/25/18 07:58 09/25/18 07:58 09/25/18 07:58 09/25/18 08:00 Oxygen Delivery Method Room Air Weight: 130 lb 11.746 oz Body Mass Index (BMI) 23.9 Finger Stick Blood Glucose 156 Intake and Output for Last 24 Hours 09/23/18 09/24/18 09/25/18 23:59 23:59 23:59 Intake Total 928 / 928 3290 / 3290 1241 / 1241 Output Total 1900 / 1900 500 / 500 Balance 928 / 928 1390 / 1390 741 / 741 Microbiology Past 72 Hours 09/23/18 15:55 Gram Stain - Final Sputum, Expectorated/Coughed Respiratory Culture - Preliminary Pseudomonas aeroginosa Laboratory Tests Past 24 Hrs 09/24/18 09/25/18 09/25/18 05:42 05:16 05:16 WBC 22.2 H RBC 3.27 L Hgb 8.5 L Hct 25.3 L MCV 77.4 L MCH 26.0 L MCHC 33.6 RDW 17.1 H RDW Differential 45.0 H Plt Count 535 H MPV 8.4 Immature Gran % (Auto) 0.900 Neut % (Auto) 76.8 H Lymph % (Auto) 13.6 L [place] % (Auto) 8.7 Eos % (Auto) 0.0 Baso % (Auto) 0.0 Absolute Neuts (auto) 17.1 H Absolute Lymphs (auto) 3.03 Total Counted Not Reportable Differential Comment Diff Path Review Reviewed May foll Platelet Estimate SLT INC Polychromasia RARE Hypochromasia 1+ Anisocytosis 1+ Target Cells 2+ Sodium 137 Potassium 4.1 Chloride 108 H Carbon Dioxide 21.0 Anion Gap 8 BUN 11 Creatinine 0.84 Estim Creat Clear Calc 61.96 Est GFR (MDRD) Af Amer 91 Est GFR (MDRD) Non-Af 75 BUN/Creatinine Ratio 13.0 Glucose 96 Calcium 8.5 Discharge Activity: May not drive while taking narcotic pain medications. Call your doctor if you observe: Fever of 101 or Higher, Shortness of breath, Dizziness, Fainting spells, Chest pain, Increased palpitations (irregular heartbeat) Home Medications: Medications to take at Discharge Albuterol Inhaler [Ventolin Hfa] 1 - 2 puff INHALATION Q6H PRN PRN 09/05/16 Losartan Potassium [Cozaar] 50 mg PO BID 09/06/16 HydrOXYzine [Atarax] 50 mg PO Q8H PRN PRN 10/12/16 Leflunomide 20 mg PO DAILY 07/31/17 Albuterol Aerosols [Ventolin Aerosols] 2.5 mg INHALATION Q4H PRN PRN 08/13/17 Duloxetine HCl 60 mg PO DAILY 01/17/18 Atorvastatin Calcium [Lipitor] 10 mg PO QHS #30 tab 01/19/18 Furosemide [Lasix] 20 mg PO DAILY PRN PRN 02/12/18 Ipratropium/Albuterol Respimat [Combivent Respimat Inhal [place]] 1 puff INHALATION Q6H PRN PRN 02/12/18 Guaifenesin [Tussin] 100 mg PO Q6H PRN PRN #60 ml 09/21/18 Hydrocodone/Acetaminophen [[place] 5-325 Tablet] 1 ea PO Q8 PRN #12 tab 09/22/18 Albuterol Inhaler [Ventolin Hfa] 1 - 2 puff INHALATION Q4H PRN PRN 09/23/18 Clonidine HCl [Catapres] 0.2 mg PO QHS PRN PRN 09/23/18 Docusate Sodium 200 mg PO BID PRN PRN 09/23/18 Folic Acid 1 mg PO DAILY 09/23/18 Gabapentin 600 mg PO TID 09/23/18 Levocetirizine Dihydrochloride [Allergy Relief] 5 mg PO DAILY 09/23/18 Nortriptyline HCl [Pamelor] 10 - 20 mg PO QHS 09/23/18 Oxycodone HCl 10 mg PO TID PRN PRN 09/23/18 Oxygen, Home [Home Oxygen] 3 lpm NASAL QHS 09/23/18 Potassium Citrate [Urocit-K] 5 meq PO DAILY 09/23/18 Promethazine/Dextromethorphan [Promethazine-Dm Syrup] 5 ml PO Q6H PRN PRN 09/23/18 Tizanidine HCl [Zanaflex] 2 - 4 mg PO BID PRN PRN 09/23/18 Ciprofloxacin HCl 500 mg PO BID #17 tablet 09/25/18 Prednisone 40 mg PO DAILY #15 tab 09/25/18 Following Prescrptions Were Given to Patient: Prednisone 40 mg PO DAILY #15 tab Ciprofloxacin HCl 500 mg PO BID #17 tablet Primary Care Physician: John Sears MD [Primary Care Provider] - Please follow up with your Primary Care Physician in: 3-5 days Please Follow Up With: [facility] pulmonology Disposition: Home Minutes spent on discharge:: 35 Patient Condition:: Stable Medical Necessity - Tobacco Use Smoking Status: Former smoker Tobacco Use: Cigarettes Meaningful Use Info Meaningful Use Diagnoses (Choose all that apply): None applicable Code Visit Inpatient E&M: 87515 Disch Hosp
[2018-09-25 12:43] LABS: Pathologist Review Reviewed
--- NOTE | 2018-09-25 13:44 | NURSING ---
nursing students documentation reviewed for documentation learning purposes.
--- NOTE | 2018-09-26 15:55 | CASEMGMT ---
RN CM Discharge Follow-up Phone Call: EMIR: Shirley Strata: 4 Call Date: 09/26/18 Discharge Date: 09/25/18 Time of Call: [id number] Duration: 0 ? Admitting Diagnosis: Bronchiectasis, JERO This RN CM attempted to contact pt via phone in regard to discharge follow-up. Voicemail received and message left requesting a return call. Matilde Knott RN
== END 2018-09-25 11:05 | disposition home or self-care (01) | DRG 191 ==
LOC: ED 08:18 → MS3 08:40
PROVIDERS: Admitting Provider Family Medicine; Emergency Provider Emergency Medicine; Family Provider Family Medicine; PCP Family Medicine; Visit Provider Family Medicine
DX: J47.9 Bronchiectasis, uncomplicated (principal); N17.9 Acute kidney failure, unspecified; J96.10 Chronic respiratory failure, unspecified whether with hypoxia or hypercapnia; D86.9 Sarcoidosis, unspecified; Z87.891 Personal history of nicotine dependence; I10 Essential (primary) hypertension; Z23 Encounter for immunization; G89.4 Chronic pain syndrome; D64.9 Anemia, unspecified; D72.829 Elevated white blood cell count, unspecified; D47.3 Essential (hemorrhagic) thrombocythemia; J20.9 Acute bronchitis, unspecified; M25.512 Pain in left shoulder; Z79.891 Long term (current) use of opiate analgesic; Z79.899 Other long term (current) drug therapy
CPT/HCPCS: 36415; 71045; 80048; 80053; 84484; 85025; 87070; 87077; 87186; 87205; 93005; 94640; 99284; 99285; J7030; 90686; A4216

== ENCOUNTER → 2018-10-08 12:39 | Outpatient (CLI) | payer MEDICARE, SELFPAY ==
[2018-09-23 09:01] VITALS: BMI 23.9
[2018-10-08 14:14] LABS: Absolute Lymphocyte Count 3.59 X10^3/ul (0.83-4.51); Absolute Neutrophil Count 11.5 X10^3/uL (2.0-7.7); Basophil# 0.05 X10^3/uL; Basophil% 0.3 % (0-1); Eosinophil# 0.34 X10^3/uL; Eosinophils% 1.9 % (0-5); Hematocrit 30.7 % (37-47); Hemoglobin 10.2 g/dl (12.0-15.0); Lymphocyte # 3.59 X10^3/ul (4.0); Lymphocyte % 19.8 % (19-41); Mean Corp Hgb Conc 33.2 g/gl (32-36); Mean Corpuscular Hgb 26.5 pg (27.0-32.0); Mean Corpuscular Volume 79.7 fL (81-99); Mean Platelet Vol. 8.8 fl (6.2-12.0); Monocyte# 2.47 X10^3/uL; Monocyte% 13.6 % (0-10); Neutrophil # 11.54 X10^3/uL (2.7-7.7); Neutrophil % 63.5 % (47-70); Platelet Count 423 K/mm3 (150-450); RBC Distribution Width CV 18.3 % (11.6-14.6); Red Blood Count 3.85 M/mm3 (4.2-5.4); White Blood Count 18.2 K/mm3 (4.4-11.0)
[2018-10-08 14:15] LABS: POSITIVE COUNT NO; POSITIVE MORPHOLOGY NO
[2018-10-08 14:16] LABS: Differential Indicated SCAN CRITERIA MET; POSITIVE DIFFERENTIAL YES
[2018-10-08 14:32] LABS: ALB/GLOB Ratio 0.7 RATIO (0.9-2.4); AST(SGOT) 13 U/L (15-37); Alanine Aminotransfer ALT/SGPT 14 U/L (13-56); Albumin, Serum 3.2 g/dL (3.2-5.0); Alkaline Phosphatase 131 U/L (45-117); Anion Gap 12 (5-15); BUN 12 mg/dL (7-18); Calcium,Total 8.7 mg/dL (8.5-10.1); Chloride 101 mmol/L (98-107); EST Glomerular Filtration Rate 62 mL/min (>60); Est Glom Filt Rate - Afr Amer 75 mL/min (>60); Globulin 4.3 g/dL (2.2-4.2); Glucose 119 mg/dL (74-106); Potassium 3.2 mmol/L (3.5-5.1); Protein, Total 7.5 g/dL (6.4-8.2); Sodium Level 134 mmol/L (136-145); Thyroid Stim Hormone (TSH) 0.45 uIU/mL (0.358-3.74)
[2018-10-08 14:46] LABS: Hypochromasia 2+; Platelet Estimate ADEQUATE (ADEQ); Target Cells 2+
[2018-10-09 12:32] LABS: Pathologist Review Reviewed
== END ==
PROVIDERS: Family Provider Family Medicine; PCP Family Medicine; Referring Provider Family Medicine; Visit Provider Family Medicine
DX: R53.83 Other fatigue (principal)
CPT/HCPCS: 36415; 80053; 84443; 85025

== ENCOUNTER 2018-11-10 11:39 | Emergency (ER) | payer MEDICARE, SELFPAY ==
[2018-09-23 09:01] VITALS: BMI 23.9
[2018-11-10] VITALS (7 sets, daily range): BP systolic 102–142; BP diastolic 78–107; PULSE 97–134; RESP 18–27; TEMP 36.6; O2SAT 91–100; BMI 18.6
--- NOTE | 2018-11-10 12:05 | ED.RN ---
PT IS AWARE THAT HER IS AT BEDSIDE AND HIS NAME. STATES THAT SHE SEEMS BETTER BUT STILL NOT QUIT HERSELF.
--- NOTE | 2018-11-10 12:14 | CT_ITS ---
STUDY: CT BRAIN WITHOUT CONTRAST REASON FOR EXAM: Female, 52 years old. PT'S CALLED EMS FOR UNRESPONSIVE, TWITCHING PT. EMS FOUND PT AWAKE, BUT COMBATIVE. RADIATION DOSAGE (If Supplied By Facility): CTDIvol = ( 44.99 ) mGy, DLP = ( 745.49 ) mGycm TECHNIQUE: Transaxial CT imaging of the brain was performed without administration of intravenous contrast material. Individualized dose optimization techniques were used for this CT. COMPARISON: None. FINDINGS: There is cerebral atrophy with widening of the extra-axial spaces and ventricular dilatation. There are areas of decreased attenuation within the white matter tracts of the supratentorial brain, consistent with microvascular disease changes. There is no intracranial hemorrhage. There are no findings of an acute ischemic infarction. Normal soft tissue structures. Normal visualized paranasal sinuses. CT/Brain/Head without Contrast IMPRESSION: Chronic involutional changes of the brain. Electronically Signed: Mercy Cast MD at 14:00 EDT Tel , Service support ,
--- NOTE | 2018-11-10 12:14 | EKG12_ITS ---
Test Reason : GEN ILLNESS Blood Pressure : / mmHG Vent. Rate : 106 BPM Atrial Rate : 106 BPM P-R Int : 158 ms QRS Dur : 094 ms QT Int : 298 ms P-R-T Axes : 063 097 025 degrees QTc Int : 395 ms Sinus tachycardia Rightward axis Cannot rule out Anterior infarct , age undetermined Abnormal ECG Confirmed by PATRICIA GONZALES, MARGARET ([id number]), pictures editor LUIS CAUSEY ([id number]) on 11/13/2018 1:37:52 PM Referred By: OLIVER Confirmed By:MARGARET GOMEZ MD
--- NOTE | 2018-11-10 12:17 | ED.VIS.GEN ---
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 He found her convulsing on the floor mostly with her upper body, unresponsive with eyes open. He called 911, this continued for another 10 maybe 15 minutes, she stopped convulsing as EMS was loading her but then started fighting with them. At this time she is not combative anymore but is persistently confused and awake. He states this is not like her. She does not use any drugs or substances that he knows of, except multiple prescriptions which he is unaware of. She is confused her provides the history that he is able. He states she had seizures in the past but he does not know much about that and does not know if she takes any medication for those still, he states the last time she had a seizure was a long time ago. She sees 7 or a different specialist he states, in addition to someone for her sarcoidosis which seems to be her major problem. He states she has pain all over, all of the time, in relation to her sarcoidosis, and sees a minute clerk for [employer] for that as well. He does not know much else about her medical history. He states that she has not been ill recently. - Past Medical History (1) Chronic respiratory failure Status: Chronic (2) Bronchiectasis Status: Chronic (3) COPD (chronic obstructive pulmonary disease) Status: Chronic (4) Chronic pain Status: Chronic (5) HTN (hypertension) Status: Chronic (6) Sarcoidosis Status: Chronic Past Medical History - Allergies and Home Meds Allergies/Adverse Reactions: Allergies cephalexin monohydrate [From Keflex] Allergy (Mild, Verified 11/10/18 11:51) Itching doxycycline Adverse Reaction (Verified 11/10/18 11:51) Vomiting moxifloxacin HCl [From Avelox] Adverse Reaction (Verified 11/10/18 11:51) Vomiting Primary Care Physician: John Sears MD [Primary Care Provider] - Surgical History: - - BLTL. lung biopsy ' Lives: Spouse/ Significant Other Smoking Status: Never smoker Alcohol: None Drugs: None - Family History Maternal Family History: Reports: Diabetes, Hypertension, Stroke Paternal Family History: Reports: Stroke Review of Systems ROS: Unable to Obtain Physical Exam Vital Signs/Narrative: Vital Signs Temp Pulse Resp BP Pulse Ox 11/10/18 11:57 132 H 20 H 11/10/18 11:42 97.8 F 134 H 18 142/107 H 91 Inital Vital Signs reviewed: Yes General: Well nourished, Well developed, No Acute Distress, - - fiddling with a band-aid and the pulse ox w/ her hands Head: Normocephalic, Atraumatic Eyes: Perrl, EOMI ENT: Moist mucous membranes, No rhinorrhea Neck: Supple, Nontender, - - no meningismus or limitations on movements. FROM bilat, chin to chest, and head extension. Cardiovascular: Regular rate, Regular rhythm, No murmurs, Normal S1, Normal S2 Respiratory: No distress, CTA bilaterally, Chest nontender Abdomen: Soft, Nontender, Nondistended, Normal bowel sounds Back: Nontender, Normal Inspection Extremities: Nontender, No edema Skin: Normal color, No rash, No Trauma Neurological: Alert, Cranial nerves II-XII grossly intact, Normal Strength, Normal Sensation. Negative for: Oriented x3 - oriented to person only. confused. GCS 4/6/4 = 14 Psychological: Normal affect, Normal Mood Diagnostic/Tx/Re-eval Impressions Brain CT 11/10/18 12:14 IMPRESSION: Chronic involutional changes of the brain. Electronically Signed: Mercy Cast MD at 14:00 EDT Tel , Service support , 11/10/18 12:14 CT Brain [Brain/Head without Contrast] [CT] Stat Laboratory Results 11/10/18 11/10/18 11/10/18 11:50 11:50 11:50 WBC 20.5 H RBC 4.16 L Hgb 11.4 L Hct 33.3 L MCV 80.0 L MCH 27.4 MCHC 34.2 RDW 17.0 H RDW Differential 48.3 H Plt Count 456 H MPV 8.7 Immature Gran % (Auto) 2.900 H Neut % (Auto) 56.5 Lymph % (Auto) 32.5 [place] % (Auto) 5.6 Eos % (Auto) 1.9 Baso % (Auto) 0.6 Absolute Neuts (auto) 11.6 H Absolute Lymphs (auto) 6.66 H Total Counted Not Reportable Differential Comment SCANNED Diff Path Review May foll Sodium 134 L Potassium 4.3 Chloride 104 Carbon Dioxide 15.0 L Anion Gap 15 BUN 7 Creatinine 1.39 H Estim Creat Clear Calc 41.63 Est GFR (MDRD) Af Amer 51 L Est GFR (MDRD) Non-Af 42 L BUN/Creatinine Ratio 5.0 L Glucose 199 H Lactic Acid 10.8 H* Calcium 8.8 Urine Color Urine Clarity Urine pH Ur Specific Burden Urine Protein Urine Glucose (UA) Urine Ketones Urine Occult Blood Urine Nitrite Urine Bilirubin Urine Urobilinogen Ur Leukocyte Esterase Urine RBC Urine WBC Ur Squamous Epith Cells Urine Bacteria Urine Mucus Urine Opiates Screen Urine Methadone Screen Ur Barbiturates Screen Ur Phencyclidine Scrn Ur Amphetamines Screen U Methamphetamin-MDMA U Benzodiazepines Scrn Urine Cocaine Screen U Cannabinoids Screen Ur Drug Screen Comment 11/10/18 11/10/18 16:35 16:35 WBC RBC Hgb Hct MCV MCH MCHC RDW RDW Differential Plt Count MPV Immature Gran % (Auto) Neut % (Auto) Lymph % (Auto) [place] % (Auto) Eos % (Auto) Baso % (Auto) Absolute Neuts (auto) Absolute Lymphs (auto) Total Counted Differential Comment Diff Path Review Sodium Potassium Chloride Carbon Dioxide Anion Gap BUN Creatinine Estim Creat Clear Calc Est GFR (MDRD) Af Amer Est GFR (MDRD) Non-Af BUN/Creatinine Ratio Glucose Lactic Acid Calcium Urine Color Yellow Urine Clarity Sl. Cloudy Urine pH 6.5 Ur Specific [place]den 1.015 Urine Protein 30 H Urine Glucose (UA) Normal Urine Ketones 15 H Urine Occult Blood 10 H Urine Nitrite Negative Urine Bilirubin Negative Urine Urobilinogen Normal Ur Leukocyte Esterase 25 H Urine RBC 0-5 SEEN Urine WBC 0-5 SEEN Ur Squamous Epith Cells 0-5 SEEN Urine Bacteria RARE Urine Mucus RARE Urine Opiates Screen POSITIVE H Urine Methadone Screen NEGATIVE Ur Barbiturates Screen NEGATIVE Ur Phencyclidine Scrn NEGATIVE Ur Amphetamines Screen NEGATIVE U Methamphetamin-MDMA NEGATIVE U Benzodiazepines Scrn NEGATIVE Urine Cocaine Screen NEGATIVE U Cannabinoids Screen NEGATIVE Ur Drug Screen Comment - Rhythm Strip Rhythm Strip: Sinus Tach Rate: 106 Ectopy: None - EKG Initial EKG Interpretation: No Acute Injury Pattern, Sinus Tachycardia - Medical Decision Making Patient was observed and her mentation gradually cleared to the point of being back to normal and baseline. She is very conversive, pleasant, states that her last seizure was a long time ago and she does not remember who she saw, what medication she was on, or exactly how long ago it was. I think she is probably had a seizure today. Her lactate was elevated consistent with that, and she had a leukocytosis which I suspect is demargination after a an otherwise negative workup including CT of the head and urinalysis. denied any illicit substances as that she, she had opiates on her drug screen but nothing else. I discussed with Dr. Hutchison with neurology who advises putting her on Keppra 500 mg twice daily, not knowing any other details as above, and have her follow-up as an outpatient. Patient is comfortable with that plan, she was given her first dose here and again monitored for over 6 hours with no further seizure activity. ED Disposition - Plan for ED Patient: Disposition: Home or Assisted Living Diagnosis: Seizure, History of seizure disorder Instructions: ED Seizure Recurrent Prescriptions: Levetiracetam [Keppra] 500 mg PO BID #60 tab Referrals: John Sears MD [Primary Care Provider] - Zach Hutchison MD [STAFF PHYSICIAN] - As soon as possible (call for appointment) Additional Instructions: YOU ARE NOT ALLOWED TO DRIVE UNTIL CLEARED BY NEUROLOGY.
[2018-11-10 12:25] LABS: Absolute Lymphocyte Count 6.66 X10^3/ul (0.83-4.51); Absolute Neutrophil Count 11.6 X10^3/uL (2.0-7.7); Basophil# 0.12 X10^3/uL; Basophil% 0.6 % (0-1); Eosinophil# 0.39 X10^3/uL; Eosinophils% 1.9 % (0-5); Hematocrit 33.3 % (37-47); Hemoglobin 11.4 g/dl (12.0-15.0); Lymphocyte # 6.66 X10^3/ul (4.0); Lymphocyte % 32.5 % (19-41); Mean Corp Hgb Conc 34.2 g/gl (32-36); Mean Corpuscular Hgb 27.4 pg (27.0-32.0); Mean Platelet Vol. 8.7 fl (6.2-12.0); Monocyte# 1.15 X10^3/uL; Monocyte% 5.6 % (0-10); Neutrophil # 11.59 X10^3/uL (2.7-7.7); Neutrophil % 56.5 % (47-70); Platelet Count 456 K/mm3 (150-450); RBC Distribution Width SD 48.3 fl (35.1-43.9); Red Blood Count 4.16 M/mm3 (4.2-5.4); White Blood Count 20.5 K/mm3 (4.4-11.0)
[2018-11-10 12:29] LABS: Differential Indicated SCAN CRITERIA MET; POSITIVE COUNT YES; POSITIVE DIFFERENTIAL YES; POSITIVE MORPHOLOGY YES
[2018-11-10 12:33] LABS: Anion Gap 15 (5-15); BUN 7 mg/dL (7-18); Calcium,Total 8.8 mg/dL (8.5-10.1); Chloride 104 mmol/L (98-107); Creatinine, Serum 1.39 mg/dL (0.55-1.02); EST Glomerular Filtration Rate 42 mL/min (>60); Est Glom Filt Rate - Afr Amer 51 mL/min (>60); Estimated Creatinine Clearance 41.63 ml/min; Glucose 199 mg/dL (74-106); Potassium 4.3 mmol/L (3.5-5.1); Sodium Level 134 mmol/L (136-145)
[2018-11-10] MEDS: 0.9% Normal Saline 1,000 ML 999 ML IV (12:35)
[2018-11-10 12:45] LABS: Differential Comment SCANNED
--- NOTE | 2018-11-10 12:53 | ED.RN ---
lactic 10.8 called from the lab. dr baum aware
[2018-11-10 12:54] LABS: Lactic Acid 10.8 mmol/L (0.4-2.0)
[2018-11-10] MEDS: Ibuprofen 600 MG Tablet PO (13:17)
--- NOTE | 2018-11-10 13:24 | ED.RN ---
dr baum consulted on possible sepsis for patient. she had a sir score of 2 related to tachycardia and wbc. dr felt it was related to her seizure. tyree álvarez rn [id number]
[2018-11-10 16:28] LABS: Reflex Lactate? Y
[2018-11-10 16:43] LABS: Color, Urine Yellow (Yellow); Glucose, Dipstick Normal (Normal); Ketone-Dipstick 15 mg/dl (Negative); Leukocyte Esterase-Dipstick 25 /ul (Negative); Nitrite-Dipstick Negative (Negative); Occult Blood-Urine 10 /ul (Negative); Protein-Dipstick 30 mg/dl (Negative); Specific Gravity, Urine 1.015 (1.002-1.030); Urine Bilirubin Dipstick Negative (Negative); Urine Clarity Sl. Cloudy (Clear); Urine Urobilinogen Normal (Normal); Urine pH 6.5 (5.0 - 8.0)
[2018-11-10 16:58] LABS: Red Blood Cells-Urine 0-5 SEEN /hpf (0-5); Squamous Epithelial Cells - UA 0-5 SEEN /hpf (5-10); White Blood Cells 0-5 SEEN /hpf (0-5)
[2018-11-10 16:59] LABS: Bacteria RARE /hpf (None Seen); Mucous, Urine RARE /hpf (<or=2+)
[2018-11-10 17:00] LABS: Amphetamine Urine VISTA NEGATIVE (<1000 ng/mL); Barbiturate Urine VISTA NEGATIVE (< 200 ng/mL); Benzodiazepine Urine VISTA NEGATIVE (< 200 ng/mL); Cocaine Urine VISTA NEGATIVE (< 300 ng/mL); Ecstacy Urine VISTA NEGATIVE (< 500 ng/mL); Methadone Urine VISTA NEGATIVE (< 300 ng/mL); PCP Urine VISTA NEGATIVE (< 25 ng/mL); THC Urine VISTA NEGATIVE (< 50 ng/mL); Vista UDS pH Range 6
[2018-11-10] MEDS: levETIRAcetam 500 MG Tablet PO (18:32)
[2018-11-11 14:49] LABS: Pathologist Review Reviewed
== END 2018-11-10 18:49 | disposition home or self-care (01) ==
PROVIDERS: Emergency Provider Emergency Medicine; Family Provider Family Medicine; PCP Family Medicine
DX: G40.909 Epilepsy, unspecified, not intractable, without status epilepticus (principal); D86.9 Sarcoidosis, unspecified; J96.10 Chronic respiratory failure, unspecified whether with hypoxia or hypercapnia; J47.9 Bronchiectasis, uncomplicated; J44.9 Chronic obstructive pulmonary disease, unspecified; I10 Essential (primary) hypertension; G89.29 Other chronic pain; Z79.899 Other long term (current) drug therapy
CPT/HCPCS: 70450; 80048; 80307; 81001; 83605; 85025; 93005; 99285; J7030; A4216

== ENCOUNTER → 2018-11-21 11:23 | Outpatient (CLI) | payer MEDICARE, SELFPAY ==
[2018-11-10 11:42] VITALS: BMI 18.6
[2018-11-21 12:38] LABS: Absolute Lymphocyte Count 4.59 X10^3/ul (0.83-4.51); Absolute Neutrophil Count 5.1 X10^3/uL (2.0-7.7); Basophil# 0.11 X10^3/uL; Basophil% 0.9 % (0-1); Differential Indicated SCAN CRITERIA MET; Hematocrit 35.8 % (37-47); Hemoglobin 12.2 g/dl (12.0-15.0); Lymphocyte # 4.59 X10^3/ul (4.0); Lymphocyte % 37.9 % (19-41); Mean Corp Hgb Conc 34.1 g/gl (32-36); Mean Corpuscular Hgb 27.3 pg (27.0-32.0); Mean Corpuscular Volume 80.1 fL (81-99); Mean Platelet Vol. 9.5 fl (6.2-12.0); Monocyte# 1.74 X10^3/uL; Monocyte% 14.4 % (0-10); Neutrophil # 5.07 X10^3/uL (2.7-7.7); Neutrophil % 41.7 % (47-70); POSITIVE COUNT NO; POSITIVE DIFFERENTIAL YES; POSITIVE MORPHOLOGY NO; Platelet Count 325 K/mm3 (150-450); RBC Distribution Width CV 17.7 % (11.6-14.6); RBC Distribution Width SD 51.6 fl (35.1-43.9); Red Blood Count 4.47 M/mm3 (4.2-5.4); White Blood Count 12.1 K/mm3 (4.4-11.0)
[2018-11-21 12:41] LABS: AST(SGOT) 20 U/L (15-37); Alanine Aminotransfer ALT/SGPT 22 U/L (13-56); Albumin, Serum 3.8 g/dL (3.2-5.0); Alkaline Phosphatase 134 U/L (45-117); Anion Gap 9 (5-15); BUN 20 mg/dL (7-18); BUN/Creat Ratio 21.3 RATIO (10-20); CRP < 2.90 mg/L (0.0-3.0); Calcium,Total 8.8 mg/dL (8.5-10.1); Chloride 105 mmol/L (98-107); Creatinine, Serum 0.94 mg/dL (0.55-1.02); EST Glomerular Filtration Rate 66 mL/min (>60); Est Glom Filt Rate - Afr Amer 80 mL/min (>60); Globulin 3.8 g/dL (2.2-4.2); Glucose 112 mg/dL (74-106); Potassium 3.6 mmol/L (3.5-5.1); Protein, Total 7.6 g/dL (6.4-8.2); Sodium Level 135 mmol/L (136-145)
[2018-11-21 12:48] LABS: Schistocytes 1+; Target Cells 2+
[2018-11-21 12:49] LABS: Platelet Morphology GIANT
[2018-11-21 14:25] LABS: Erythrocyte Sedimentation Rate 13 mm/hr (0-30)
[2018-11-21 15:23] LABS: Pathologist Review Reviewed
== END ==
PROVIDERS: Family Provider Family Medicine; PCP Family Medicine; Referring Provider Family Medicine; Visit Provider Family Medicine
DX: J47.9 Bronchiectasis, uncomplicated (principal); R11.0 Nausea; R44.1 Visual hallucinations
CPT/HCPCS: 36415; 80053; 82140; 85025; 85652; 86140

== ENCOUNTER 2018-12-12 18:09 | Emergency (ER) | payer MEDICARE, SELFPAY ==
[2018-11-10 11:42] VITALS: BMI 18.6
[2018-12-12 18:12] VITALS: BP 117/82; PULSE 108; RESP 17; TEMP 36.5; O2SAT 95; BMI 21.8
--- NOTE | 2018-12-12 19:44 | ED.RN ---
PATIENT LWBS AT 1939.
== END 2018-12-12 19:39 | disposition left against medical advice (07) ==
LOC: ED 19:49
PROVIDERS: Emergency Provider Emergency Medicine; Family Provider Family Medicine; PCP Family Medicine
DX: J02.9 Acute pharyngitis, unspecified (principal); Z53.21 Procedure and treatment not carried out due to patient leaving prior to being seen by health care provider
CPT/HCPCS: 99282

== ENCOUNTER 2018-12-12 23:26 | Emergency (ER) | payer MEDICARE, SELFPAY ==
[2018-12-12 18:12] VITALS: BMI 21.8
[2018-12-12 23:27] VITALS: BP 125/76; PULSE 100; RESP 18; TEMP 37.1; O2SAT 95; BMI 23.0
--- NOTE | 2018-12-13 00:06 | RAD_ITS ---
STUDY: X-RAY CHEST REASON FOR EXAM: Female, 53 years old. Cough TECHNIQUE: Single AP portable view of the chest. COMPARISON: 09/23/2018 FINDINGS: There is hyperinflation of the lungs consistent with chronic obstructive lung disease (COPD). Severe chronic interstitial lung disease predominantly in the bases likely interstitial fibrosis, bronchiectasis in the bases and right upper lung. There is no demonstrated pleural abnormality. Normal size heart. Normal mediastinum and jordin. Normal visualized pulmonary arteries. Normal visualized aortic arch and descending thoracic aorta. Normal visualized thoracic spine. Normal visualized ribs, clavicles, and shoulders. There is no demonstrated abnormality of the visualized soft tissue structures of the upper abdomen. RAD/Chest 1 View (Portable) IMPRESSION: Chronic-appearing interstitial lung disease with pulmonary fibrosis in the bases. No significant interval change. Electronically Signed: Cris Addison MD at 0:58 EDT , Service support ,
--- NOTE | 2018-12-13 00:07 | EKG12_ITS ---
Test Reason : Blood Pressure : / mmHG Vent. Rate : 100 BPM Atrial Rate : 100 BPM P-R Int : 148 ms QRS Dur : 088 ms QT Int : 434 ms P-R-T Axes : 073 091 044 degrees QTc Int : 559 ms Normal sinus rhythm Possible Left atrial enlargement Rightward axis Prolonged QT Nonspecific T-Wave Abnormality Abnormal ECG Confirmed by PATRICIA GONZALES, MARGARET ([id number]), associate editor LUIS CAUSEY ([id number]) on 12/16/2018 11:40:24 AM Referred By: ALICE Confirmed By:MARGARET GOMEZ MD
[2018-12-13] MEDS: Ketorolac 15 MG/ML Vial IV (00:32)
[2018-12-13] MEDS: 0.9% Normal Saline 1,000 ML 1000 ML IV (00:32)
[2018-12-13 00:38] LABS: Absolute Lymphocyte Count 2.22 X10^3/ul (0.83-4.51); Basophil# 0.08 X10^3/uL; Basophil% 0.2 % (0-1); Eosinophil# 0.01 X10^3/uL; Hematocrit 31.4 % (37-47); Hemoglobin 10.8 g/dl (12.0-15.0); Lymphocyte # 2.22 X10^3/ul (4.0); Lymphocyte % 5.6 % (19-41); Mean Corp Hgb Conc 34.4 g/gl (32-36); Mean Corpuscular Hgb 26.7 pg (27.0-32.0); Mean Corpuscular Volume 77.7 fL (81-99); Mean Platelet Vol. 8.6 fl (6.2-12.0); Monocyte# 2.54 X10^3/uL; Monocyte% 6.4 % (0-10); Neutrophil # 33.99 X10^3/uL (2.7-7.7); Neutrophil % 86.2 % (47-70); Platelet Count 578 K/mm3 (150-450); RBC Distribution Width CV 17.6 % (11.6-14.6); RBC Distribution Width SD 49.7 fl (35.1-43.9); Red Blood Count 4.04 M/mm3 (4.2-5.4)
[2018-12-13 00:39] LABS: Differential Indicated SCAN CRITERIA MET; POSITIVE COUNT YES; POSITIVE DIFFERENTIAL YES; POSITIVE MORPHOLOGY NO; White Blood Count 39.5 K/mm3 (4.4-11.0)
--- NOTE | 2018-12-13 00:40 | ED.RN ---
DR SYED NOTIFIED OF WBC RESULTS
[2018-12-13 00:43] LABS: Absolute Nucleated RBC Count 0.11 10^3/uL (0-5); NRBC Flagged by Analyzer 0.3 % (0-5)
[2018-12-13 01:17] LABS: Mucous, Urine 0 SEEN /hpf (<or=2+); Red Blood Cells-Urine 0 SEEN /hpf (0-5); White Blood Cells 0 SEEN /hpf (0-5)
[2018-12-13 01:19] LABS: Color, Urine Yellow (Yellow); Glucose, Dipstick Normal (Normal); Ketone-Dipstick Negative (Negative); Leukocyte Esterase-Dipstick Negative /ul (Negative); Nitrite-Dipstick Negative (Negative); Occult Blood-Urine Negative /ul (Negative); Protein-Dipstick 15 mg/dl (Negative); Specific Gravity, Urine 1.015 (1.002-1.030); Urine Bilirubin Dipstick Negative (Negative); Urine Clarity Clear (Clear); Urine Urobilinogen Normal (Normal)
[2018-12-13 01:21] VITALS: BP 125/76; PULSE 100; RESP 18; TEMP 37.1; O2SAT 95
--- NOTE | 2018-12-13 01:22 | ED.RN ---
UNABLE TO OBTAIN ADDITIONAL ORDERS. PT WITH MULTIPLE REQUESTS. MD AWARE OF PAIN, NOT ENOUGH TIME HAS LASPED FOR MORE PAIN MEDS ACCORDING TO MD. PT AWARE BUT NOT COMPREHENDING. URINE SAMPLE OBTAINED AND SENT.
[2018-12-13 01:25] LABS: Bacteria RARE /hpf (None Seen); Squamous Epithelial Cells - UA 0-5 SEEN /hpf (5-10)
--- NOTE | 2018-12-13 01:46 | ED.RN ---
CONNER FROM LAB AT BEDSIDE.
[2018-12-13 02:23] LABS: International Normalized Ratio 1.3; Prothrombin Time (Protime)PT. 16.4 SECONDS (11.7-14.9)
[2018-12-13 02:24] LABS: Partial Thromboplast Time 38.6 Seconds (24.1-36.2)
[2018-12-13] MEDS: Morphine 4 MG/ML Syringe IV (02:32)
[2018-12-13 02:39] VITALS: BP 126/85; PULSE 103; RESP 22; O2SAT 97
--- NOTE | 2018-12-13 02:40 | ED.RN ---
PT CONTINUES TO RING FOR RN. PT INFORMED THAT RN CANNOT BE AT HER BEDSIDE CONTINUOUSLY SHE HAS OTHER PATIENTS SHE NEEDS TO CARE FOR.
[2018-12-13 02:41] VITALS: BP 126/85; PULSE 103; RESP 22; TEMP 37.1; O2SAT 97
--- NOTE | 2018-12-13 02:42 | CT_ITS ---
STUDY: CT ABDOMEN AND PELVIS WITHOUT CONTRAST REASON FOR EXAM: Female, 53 years old. Abdominal pain, history of asthma, COPD, hypertension, sarcoidosis, tubal ligation. RADIATION DOSAGE (If Supplied By Facility): CTDIvol = ( 6.60 ) mGy, DLP = ( 326.50 ) mGycm TECHNIQUE: Transaxial 2.5 mm images were obtained from the dome of the diaphragm to the symphysis pubis without oral contrast, and without intravenous contrast. Sagittal and coronal images were reconstructed. This examination is limited for the evaluation of gastrointestinal, solid organs and vascular structures due to the lack of intravenous and oral contrast. Individualized dose optimization techniques were used for this CT. COMPARISON: CT abdomen and pelvis 10/19/2017. FINDINGS: Extensive basilar pulmonary fibrosis with pulmonary cysts, distortion of parenchyma, bronchiectasis and scarring seen to a similar degree. Interval resolution of previous hazy parenchymal changes. Mild fluid distention of the distal esophagus, small hiatal hernia suspected. The visualized portions of the heart are within normal limits. Normal liver. Distended gallbladder and normal-appearing extrahepatic biliary system. Normal spleen. Normal pancreas. Normal bilateral adrenal glands. Normal right kidney. Normal left kidney. Normal visualized stomach. Extensive air distention and fluid distention of the colon most pronounced along the cecum measuring 8.9 x 7.4 cm which is low-lying in the pelvis displacing and compressing the adjacent rectosigmoid colon. There is no significant distention of the displaced and compressed rectosigmoid colon, there is significant air and fluid distention of the transverse and ascending, left descending colon. No focal wall thickening or obstructing lesion detected. There is no wall or fold thickening. There is mild pneumatosis along the nondependent wall within the cecum image 128-1 45 series 2. There is mild to moderate fluid and air distention of the small bowel without abrupt caliber change. There are tiny pockets of air along the wall of the dependent and nondependent small bowel in the pelvis. There is no small bowel wall or fold thickening noted. There is no air within mesenteric vessels or abner. There is no free air. The appendix is visualized and appears normal. Normal abdominal aorta. Normal inferior vena cava. Normal retroperitoneum. Normal urinary bladder. The uterus is age appropriate. Normal abdominal wall. Degenerative and discogenic changes mostly centered at L5-S1. CT/Abdomen/Pelvis without Cont IMPRESSION: Extensive fluid and air distention of the colon most pronounced in the cecum which is layering in the pelvis displacing the adjacent rectosigmoid colon with compression. No focal mass or inflammatory process within the colon detected. There is pneumatosis intestinalis of the cecum and possible of the pelvic small bowel, however no mesenteric vessel air, portal air or free air detected. Normal appendix. Small bowel fluid distention without abrupt caliber change to suggest obstruction. Mechanical obstruction caused by the substantial cecal dilatation along the rectosigmoid colon may be present. No evidence of volvulus or internal hernia. Stable substantial pulmonary fibrosis with cystic pulmonary disease and bronchiectasis, resolution of previous airspace opacification. Other nonacute findings as outlined above. These findings were discussed on the telephone with Dr. Kelsey at the [facility]. EST on 12/13/2018. Electronically Signed: Cris Addison MD at 3:57 EDT , Service support ,
[2018-12-13 02:45] LABS: ALB/GLOB Ratio 0.7 RATIO (0.9-2.4); AST(SGOT) 29 U/L (15-37); Alanine Aminotransfer ALT/SGPT 16 U/L (13-56); Albumin, Serum 3.1 g/dL (3.2-5.0); Alkaline Phosphatase 144 U/L (45-117); Anion Gap 14 (5-15); BUN 18 mg/dL (7-18); BUN/Creat Ratio 9.7 RATIO (10-20); Calcium,Total 8.5 mg/dL (8.5-10.1); Chloride 104 mmol/L (98-107); Creatinine, Serum 1.86 mg/dL (0.55-1.02); EST Glomerular Filtration Rate 30 mL/min (>60); Est Glom Filt Rate - Afr Amer 36 mL/min (>60); Estimated Creatinine Clearance 27.66 ml/min; Globulin 4.7 g/dL (2.2-4.2); Glucose 123 mg/dL (74-106); Lipase 132 U/L (73-393); Potassium 2.3 mmol/L (3.5-5.1); Protein, Total 7.8 g/dL (6.4-8.2); Sodium Level 136 mmol/L (136-145)
[2018-12-13 02:46] LABS: Lactic Acid 4.1 mmol/L (0.4-2.0)
[2018-12-13] MEDS: Dicyclomine 20 MG/2 ML Vial IM (02:49)
--- NOTE | 2018-12-13 03:00 | ED.RN ---
pt placed on bedside commode again. During this bathroom break, she got stool all over the seat and lid of bedside commode. PT states she wants to use the bathroom across the mora, RN denied request. PT is on O2 and needs restroom about every 10 min. PT is unable to walk across mora by herself. PT in septic shock. PT upset that she is unable to use restroom across mora and has fired this RN from her care. ore grader aware.
[2018-12-13] MEDS: fentaNYL 100 MCG/2 ML Ampul 50 MCG IV ×3 (03:47→05:12)
[2018-12-13] MEDS: 0.9% Normal Saline 1,000 ML 999 ML IV (03:48)
[2018-12-13 04:33] VITALS: BP 121/81; PULSE 79; RESP 22; O2SAT 97
--- NOTE | 2018-12-13 04:50 | ED.DCSUM_ITS ---
- ER Visit Summary Date of Service: 12/13/18 Chief Complaint: Aches History of Present Illness: The patient is a 53 F who complains of body aches. Symptoms started today and came on gradually. She says that she may have caught something because she was exposed to her grandkids that were all sick. When I asked her where she hurts, she motions to her chest and abdomen. She said she never had this before. She does have a cough and some constipation. Denies fevers. She does have a history of asthma, COPD, hypertension, sarcoidosis, bronchiectasis, hypokalemia and others. History of tubal ligation and lung biopsy. Prior smoker. Physical Examination: Afebrile and vital signs unremarkable except for a heart rate of 100. Patient is tearful and appears upset. She appears uncomfortable but not toxic or in distress. Heart regular. Lungs clear. Abdomen soft and nontender. Skin appears normal. Test Results: See below Emergency Department Course and Treatment: Patient presented with vague symptoms. She did complain of cough and body aches. She thought she may have caught something from her grandkids. I checked some basic blood work, chest x- ray, and EKG. She was treated with a fluid bolus as well as Toradol. CBC showed a white count of 39.5. She had this before and it was attributed to pneumonia or prednisone use. Her hemoglobin was 10.8, stable. Platelets 578. At this point based on her white count and vital signs, I was concerned for sepsis. I added on additional sepsis labs including a lactate and cultures. Her potassium came back at 2.3. She received 40 mEq. Creatinine slightly elevated at 1.86. Alkaline phosphatase 144. Lipase normal. INR 1.3 and PTT 38.6. Troponin came back normal, but lactate came back 4.1. Patient continued to have normal blood pressures, but her lactate qualified her for septic shock. Still did not have a source. Her urinalysis and chest x-ray were unremarkable for anything acute or concerning. I added on additional fluid bolus to cover her for 30 cc/kg. She was treated with Azactam and vancomycin. Patient began having increasing gas pain, abdominal pain and diarrhea. A CT abdomen was ordered. This showed an extensive fluid and air distended colon most pronounced around the cecum with compression into the rectosigmoid colon. There were no focal masses or inflammatory processes noted. She also has pneumatosis intestinalis is of the cecum and possible small bowel. Mesenteric vessel air, portal air, and free air were not noted. There was no definite obstruction noted. She does have stable pulmonary fibrosis. Patient required additional pain medicine. She remained hemodynamically stable. I discussed her case with Dr. Bronson who advised transfer to a tertiary center. Patient advised [facility]. I spoke with the call center and Dr. Arias. The surgeon on-call and Dr. Arias accepted the patient for transfer For evaluation in their emergency department. Treatment Plan: As above Disposition: Transfer Impression: 1. Colonic distension with pneumatosis intestinalis 2. Septic shock 3. Hypokalemia This note was generated with [employer] dictation software. It may contain incorrect words, spelling, and punctuation that were not noted in review of the chart prior to signing ED Disposition - Plan for ED Patient: Referrals: John Sears MD [Primary Care Provider] -
[2018-12-13 05:00] VITALS: BP 108/79; PULSE 76; RESP 18; TEMP 37.2; O2SAT 97
[2018-12-13] MEDS: Ipratropium/Albuterol Sulfate 3 ML AMPUL.NEB INHALATION (05:13)
[2018-12-13 05:18] VITALS: PULSE 84; RESP 20
[2018-12-13 06:10] LABS: Reflex Lactate? Y
[2018-12-13 14:15] LABS: Pathologist Review Reviewed
== END 2018-12-13 05:26 | disposition short-term general hospital (02) ==
PROVIDERS: Emergency Provider Emergency Medicine; Family Provider Family Medicine; PCP Family Medicine
DX: A41.9 Sepsis, unspecified organism (principal); K63.89 Other specified diseases of intestine; R65.21 Severe sepsis with septic shock; E87.6 Hypokalemia; D86.9 Sarcoidosis, unspecified; J84.10 Pulmonary fibrosis, unspecified; J47.9 Bronchiectasis, uncomplicated; J44.9 Chronic obstructive pulmonary disease, unspecified; I10 Essential (primary) hypertension; Z87.891 Personal history of nicotine dependence; Z79.899 Other long term (current) drug therapy
CPT/HCPCS: 36415; 71045; 74176; 80053; 81001; 83605; 83690; 84484; 85025; 85610; 85730; 87040; 87086; 87804; 93005; 94640; 96361; 96365; 96367; 96375; 96376; 99282; 99285; J7030; J7050; A4216

== ENCOUNTER 2018-12-28 12:06 | Emergency (ER) | payer MEDICARE, SELFPAY ==
[2018-12-28 12:07] VITALS: BP 160/119; PULSE 103; RESP 18; TEMP 36.6; O2SAT 96; BMI 22.6
--- NOTE | 2018-12-28 12:28 | RAD_ITS ---
STUDY: X-RAY - ACUTE ABDOMINAL SERIES REASON FOR EXAM: Female, 53 years old. Nausea and vomiting. Postop day 14. History of sarcoidosis. TECHNIQUE: Single view of the chest. Supine, and erect view(s) of the abdomen were obtained. COMPARISON: CT December 13, 2018 FINDINGS: There are advanced interstitial fibrotic changes of the lungs. Normal size heart. There is bilateral hilar enlargement. Normal visualized pulmonary arteries. Normal visualized aortic arch and descending thoracic aorta. There is gaseous distention of small bowel loops in the abdomen. There is ostomy on the right. There are skin jax. Normal visualized osseous structures. RAD/Acute Abdomen Inc Chest IMPRESSION: Gaseous distention of bowel loops without ileus or obstruction. Advanced interstitial changes of the lungs with hilar enlargement consistent with history of sarcoidosis. Electronically Signed: Shaka Shanks MD at 13:43 EDT , Service support ,
[2018-12-28 13:07] LABS: Absolute Lymphocyte Count 2.36 X10^3/ul (0.83-4.51); Absolute Neutrophil Count 24.9 X10^3/uL (2.0-7.7); Basophil# 0.13 X10^3/uL; Basophil% 0.4 % (0-1); Eosinophils% 1.3 % (0-5); Hematocrit 30.1 % (37-47); Hemoglobin 9.9 g/dl (12.0-15.0); Lymphocyte # 2.36 X10^3/ul (4.0); Lymphocyte % 7.5 % (19-41); Mean Corp Hgb Conc 32.9 g/gl (32-36); Mean Corpuscular Volume 85.3 fL (81-99); Mean Platelet Vol. 9.1 fl (6.2-12.0); Monocyte# 3.61 X10^3/uL; Monocyte% 11.4 % (0-10); Neutrophil # 24.91 X10^3/uL (2.7-7.7); Neutrophil % 78.8 % (47-70); POSITIVE COUNT YES; POSITIVE DIFFERENTIAL YES; POSITIVE MORPHOLOGY YES; Platelet Count 746 K/mm3 (150-450); RBC Distribution Width CV 20.3 % (11.6-14.6); RBC Distribution Width SD 59.7 fl (35.1-43.9); Red Blood Count 3.53 M/mm3 (4.2-5.4); White Blood Count 31.6 K/mm3 (4.4-11.0)
[2018-12-28 13:08] LABS: Differential Indicated SCAN CRITERIA MET
--- NOTE | 2018-12-28 13:11 | CT_ITS ---
STUDY: CT ABDOMEN AND PELVIS WITHOUT CONTRAST REASON FOR EXAM: Female, 53 years old. Small bowel obstruction history, abdominal wound colostomy no stool passage into colostomy RADIATION DOSAGE (If Supplied By Facility): CTDIvol = ( 6.09 ) mGy, DLP = ( 290.73 ) mGycm TECHNIQUE: Transaxial images were obtained from the dome of the diaphragm to the symphysis pubis with oral contrast, and without intravenous contrast. Sagittal and coronal images were reconstructed. Individualized dose optimization techniques were used for this CT. COMPARISON: 12/13/2018 CT. FINDINGS: This is a limited non-IV contrast study. Stable pulmonary scarring bulla and fibrotic changes right middle lobe lingula and lower lobes. The visualized portions of the heart are within normal limits. Normal liver. Normal gallbladder and extrahepatic biliary system. Normal spleen. Normal pancreas. Normal bilateral adrenal glands. Normal right kidney. Normal left kidney. There is an ostomy within the right upper pelvis. There is moderate distention of small bowel loops and residual remaining colon most significant within the lower pelvis adjacent to the surgical anastomosis. There is moderate colonic fecal load proximal to the ostomy. Normal abdominal aorta. Normal inferior vena cava. Normal retroperitoneum. There is significant distention of the bladder.. There is anterior skin wound defect noted inferior to the umbilicus. This defect extends to the rectus muscle sheath. Inferior to the wound defect is air also within the subcutaneous soft tissues and soft tissue density within the subcutaneous soft tissues likely small seroma or hematoma. There is small subcutaneous nodular density within the right anterior subcutaneous soft tissue also a small seroma Multilevel spondylosis lumbar spine. There is significant disc space narrowing and subchondral sclerosis and osteophyte formation with disc protrusion was most likely the L5-S1 level. There is air adjacent to or within the posterior disc. There may be transitional vertebral body. CT/Abdomen/Pelvis without Cont IMPRESSION: ostomy within the right upper pelvis. There is moderate distention of small bowel loops and residual remaining colon most significant within the lower pelvis adjacent to the surgical anastomosis. There is moderate colonic fecal load proximal to the ostomy. Findings likely represent obstruction or partial small bowel obstruction at the level of the surgical anastomosis. Additional follow-up CT could be performed to evaluate passage of the oral contrast Significant distended bladder anterior skin wound defect noted inferior to the umbilicus. This defect extends to the rectus muscle sheath. Inferior to the wound defect is air also within the subcutaneous soft tissues and soft tissue density within the subcutaneous soft tissues likely small seroma or hematoma COPD changes, pulmonary scarring and fibrotic changes unchanged Multilevel spondylosis lumbar lumbar spine, stable significant disc space narrowing and subchondral sclerosis and osteophyte formation with disc protrusion was most likely the L5-S1 level. There is air adjacent to or within the posterior disc. There may be transitional vertebral body. Electronically Signed: Chris Mehta, at 16:03 EDT Tel , Service support ,
[2018-12-28 13:15] LABS: Anion Gap 10 (5-15); BUN 30 mg/dL (7-18); Calcium,Total 8.9 mg/dL (8.5-10.1); Chloride 95 mmol/L (98-107); Creatinine, Serum 3.35 mg/dL (0.55-1.02); EST Glomerular Filtration Rate 15 mL/min (>60); Est Glom Filt Rate - Afr Amer 19 mL/min (>60); Estimated Creatinine Clearance 15.36 ml/min; Glucose 110 mg/dL (74-106); Potassium 3.6 mmol/L (3.5-5.1); Sodium Level 130 mmol/L (136-145)
[2018-12-28 13:18] LABS: NRBC Flagged by Analyzer 0.3 % (0-5)
[2018-12-28 14:00] VITALS: BP 176/97; PULSE 86; RESP 18; TEMP 36.5; O2SAT 96
[2018-12-28 14:06] LABS: Anisocytosis 3+; Differential Comment SCANNED; Platelet Estimate MOD INC (ADEQ); Schistocytes 2+; Target Cells 2+
[2018-12-28] MEDS: 0.9% Normal Saline 1,000 ML 999 ML IV (14:09)
[2018-12-28 14:13] LABS: Lactic Acid 1.3 mmol/L (0.4-2.0)
[2018-12-28 14:54] VITALS: BP 169/115; PULSE 70; RESP 18; O2SAT 93
--- NOTE | 2018-12-28 15:37 | ED.VIS.GEN ---
History of Present Illness Chief Complaint: Constipation Informant: Patient, Family Onset: Days - No flatus or stool in colostomy bag for 2 days Context: Sudden Onset Timing: Continuous Quality: Abdominal distention with no flatus or stool Location: GI Current Severity: Mild Maximum Severity: Moderate Worsened by: P.o. intake Relieved by: Nothing Associated Symptoms: Nausea and vomiting x2 today, no nausea or vomiting prior to today Narrative: Patient is a middle-aged woman who presents with abdominal distention, discomfort, no stool in colostomy bag and no flatus. She is status post she denies fever, chills or night sweats. Past Medical History - Allergies and Home Meds Allergies/Adverse Reactions: Allergies cephalexin monohydrate [From Keflex] Allergy (Mild, Verified 12/28/18 12:13) Itching doxycycline Adverse Reaction (Verified 12/28/18 12:13) Vomiting moxifloxacin HCl [From Avelox] Adverse Reaction (Verified 12/28/18 12:13) Vomiting Primary Care Physician: John Sears MD [Primary Care Provider] - Surgical History: - - BLTL. lung biopsy ' Smoking Status: Former smoker - Family History Maternal Family History: Reports: Diabetes, Hypertension, Stroke Paternal Family History: Reports: Stroke Physical Exam Vital Signs/Narrative: Vital Signs Temp Pulse Resp BP Pulse Ox 12/28/18 14:54 70 18 169/115 H 93 12/28/18 14:00 97.7 F L 86 18 176/97 H 96 12/28/18 12:07 97.9 F 103 H 18 160/119 H 96 Diagnostic/Tx/Re-eval Chest X-Ray - ED: Read by ED Physician Three-view x-ray of the chest reveals chronic fibrotic changes of the lower lung merida. Multiple air-fluid levels with distention of small bowel and mild edema of the small bowel wall. Findings are consistent with partial small bowel obstruction. Impressions Acute Abdomen Series 12/28/18 12:28 IMPRESSION: Gaseous distention of bowel loops without ileus or obstruction. Advanced interstitial changes of the lungs with hilar enlargement consistent with history of sarcoidosis. Electronically Signed: Shaka Shanks MD at 13:43 EDT , Service support , Abdomen/Pelvis CT 12/28/18 13:11 IMPRESSION: ostomy within the right upper pelvis. There is moderate distention of small bowel loops and residual remaining colon most significant within the lower pelvis adjacent to the surgical anastomosis. There is moderate colonic fecal load proximal to the ostomy. Findings likely represent obstruction or partial small bowel obstruction at the level of the surgical anastomosis. Additional follow-up CT could be performed to evaluate passage of the oral contrast Significant distended bladder anterior skin wound defect noted inferior to the umbilicus. This defect extends to the rectus muscle sheath. Inferior to the wound defect is air also within the subcutaneous soft tissues and soft tissue density within the subcutaneous soft tissues likely small seroma or hematoma COPD changes, pulmonary scarring and fibrotic changes unchanged Multilevel spondylosis lumbar lumbar spine, stable significant disc space narrowing and subchondral sclerosis and osteophyte formation with disc protrusion was most likely the L5-S1 level. There is air adjacent to or within the posterior disc. There may be transitional vertebral body. Electronically Signed: Chris Tyson, at 16:03 EDT Tel , Service support , 12/28/18 12:28 Acute Abdomen Inc Chest [RAD] Stat 12/28/18 13:11 Abdomen/Pelvis without Cont [CT] Stat 12/28/18 17:44 Abdomen Single View (Portable) [RAD] Stat Laboratory Results 12/28/18 12/28/18 12/28/18 12:45 12:45 13:40 WBC 31.6 H* RBC 3.53 L Hgb 9.9 L Hct 30.1 L MCV 85.3 MCH 28.0 MCHC 32.9 RDW 20.3 H RDW Differential 59.7 H Plt Count 746 H MPV 9.1 Immature Gran % (Auto) 0.600 Neut % (Auto) 78.8 H Lymph % (Auto) 7.5 L Mccone % (Auto) 11.4 H Eos % (Auto) 1.3 Baso % (Auto) 0.4 Absolute Neuts (auto) 24.9 H Absolute Lymphs (auto) 2.36 Total Counted Not Reportable Nucleated RBC % 0.3 Differential Comment SCANNED Diff Path Review May foll Platelet Estimate MOD INC Anisocytosis 3+ Target Cells 2+ Schistocytes 2+ H Absolute Retic 0.10 Sodium 130 L Potassium 3.6 Chloride 95 L Carbon Dioxide 25.0 Anion Gap 10 BUN 30 H Creatinine 3.35 H Estim Creat Clear Calc 15.36 Est GFR (MDRD) Af Amer 19 L Est GFR (MDRD) Non-Af 15 L BUN/Creatinine Ratio 9.0 L Glucose 110 H Lactic Acid 1.3 Calcium 8.9 - Rhythm Strip Rhythm Strip: Sinus Rhythm Rate: 104 Ectopy: None - EKG Initial EKG Interpretation: Sinus Rhythm - Trickle rate 96. CA interval, cures duration and axis are normal. QT interval is prolonged. There is probable left atrial enlargement. There is no ischemic changes. This was obtained because she complained of chest discomfort. - Medical Decision Making With history of abdominal surgery no stool or gas in the colostomy bag complaining of distention and abdominal discomfort need to evaluate for partial small bowel obstruction versus ileus. Clinically she appears dehydrated will obtain basic metabolic panel to assess electrodes as well as renal function. She does have history of end-stage renal disease, stage III. She has been taking an anti-inflammatory which she was prescribed by her doctor. This raises concern for worsening renal failure. Patient's white count is higher than normal. Her white count is elevated secondary to sarcoidosis and treatment of her sarcoidosis. Patient's creatinine has essentially doubled. This may be secondary to dehydration in combination with NSAID use. The radiologist interpreted her plain films is unremarkable. I am in disagreement and history is consistent with a partial small bowel obstruction. With elevated white count in patient with autoimmune disorder who is postop will obtain CT of the abdomen with p.o. and IV contrast. The IV contrast was canceled after I was made aware of her creatinine. NG was ordered to low intermittent suction. Patient receiving IV fluids. Because of history of heart failure she is receiving fluids at 250 cc/h. Because subcutaneous air was noted in her incision and she had brown drainage from the wound with odor of stool she received a dose of Zosyn and vancomycin. She does not have severe sepsis since her lactate is normal. ED Disposition - Plan for ED Patient: Disposition: [facility] Diagnosis: Partial obstruction of small intestine, Acute kidney injury (nontraumatic), Infection of deep incisional surgical site after procedure, History of sarcoidosis Referrals: John Sears MD [Primary Care Provider] -
--- NOTE | 2018-12-28 17:21 | ED.RN ---
pt states i just want to go home. pt does not want ng tube until she can discuss with the
[2018-12-28 17:22] VITALS: BP 153/101; PULSE 93; RESP 20; O2SAT 96
--- NOTE | 2018-12-28 17:52 | NURSING ---
CALLED [facility] TALKED TO DR SHIPLEY
[2018-12-28] MEDS: 0.9% Normal Saline 1,000 ML 250 ML IV (18:20)
--- NOTE | 2018-12-28 18:37 | RAD_ITS ---
STUDY: X-RAY - ABDOMEN/PELVIS REASON FOR EXAM: Female, 53 years old. Placement of orogastric tube TECHNIQUE: KUB COMPARISON: CT same day FINDINGS: There is an orogastric tube tip in the stomach. There are diffuse COPD changes, scattered scarring and mild fibrotic changes. There is significant distended loops of small bowel. There is ostomy within the right upper pelvis. There are skin surgical clips overlying the abdomen. There is no demonstrated free abdominal air. The visualized liver, spleen and kidneys are grossly normal in size and morphology. Normal soft tissue structures. Normal visualized osseous structures. RAD/Abdomen Single View (Portable) IMPRESSION: Orogastric tube tip in the stomach COPD changes, pulmonary scarring, pulmonary fibrotic changes Significantly distended loops small bowel suspicious for obstruction versus ileus Ostomy within the right upper pelvis Electronically Signed: Chris Mehta, at 19:53 EDT Tel , Service support ,
[2018-12-28 19:00] VITALS: BP 132/92; PULSE 93; RESP 18; O2SAT 96
--- NOTE | 2018-12-28 19:48 | EKG12_ITS ---
Test Reason : CP Blood Pressure : / mmHG Vent. Rate : 096 BPM Atrial Rate : 096 BPM P-R Int : 156 ms QRS Dur : 082 ms QT Int : 390 ms P-R-T Axes : 072 084 047 degrees QTc Int : 492 ms Sinus rhythm with occasional Premature ventricular complexes Possible Left atrial enlargement Prolonged QT Abnormal ECG Confirmed by JUANY JOSEPH ([id number]), loan expeditor LUIS CAUSEY ([id number]) on 12/30/2018 1:20:00 PM Referred By: VIOLETTA Confirmed By:JUANY JOSEPH
[2018-12-28 19:50] VITALS: BP 132/92; PULSE 93; RESP 15; O2SAT 96
[2018-12-30 14:51] LABS: Pathologist Review Reviewed
== END 2018-12-28 19:30 | disposition short-term general hospital (02) ==
PROVIDERS: Emergency Provider Emergency Medicine; Family Provider Family Medicine; PCP Family Medicine
DX: K56.600 Partial intestinal obstruction, unspecified as to cause (principal); N17.9 Acute kidney failure, unspecified; T81.42XA Infection following a procedure, deep incisional surgical site, initial encounter; D86.9 Sarcoidosis, unspecified; N32.89 Other specified disorders of bladder; J44.9 Chronic obstructive pulmonary disease, unspecified; E86.0 Dehydration; N18.6 End stage renal disease; Z79.891 Long term (current) use of opiate analgesic; Z99.81 Dependence on supplemental oxygen; Z79.52 Long term (current) use of systemic steroids; Z79.899 Other long term (current) drug therapy; Z93.3 Colostomy status; Z88.1 Allergy status to other antibiotic agents; Z87.891 Personal history of nicotine dependence
CPT/HCPCS: 74018; 74022; 74176; 80048; 83605; 85025; 87040; 93005; 96361; 96365; 96367; 99285; J7030; A4216

== ENCOUNTER 2019-01-05 16:49 | Emergency (ER) | payer MEDICARE, SELFPAY ==
[2019-01-05 16:52] VITALS: BP 150/118; PULSE 94; RESP 18; TEMP 36.8; O2SAT 100; BMI 21.6
--- NOTE | 2019-01-05 17:41 | ED.DCSUM_ITS ---
- ER Visit Summary Date of Service: 01/05/19 Chief Complaint: Diarrhea History of Present Illness: The patient is a 53 F status post partial small bowel resection she states 3 feet abdominal small bowel obstruction for which she was transferred to [facility]. She also has a history of sarcoidosis, hypertension, bronchiectasis and seizures. She has an ostomy which they plan to reverse but she said that of a year from now. She did have a recurrent obstruction post surgery and had been transferred back up to [facility]. She has been doing well for the last 3 weeks but developed diarrhea about 3 days ago. No melena no fever. Says is watery. Minimal discomfort. No dysuria. She does not think she has been on antibiotics except for maybe she was in the hospital. Physical Examination: Middle-aged female vital signs stable afebrile. No distress. HEENT exam unremarkable. Moist with membranes. Neck nontender no lymphadenopathy. Lungs clear to auscultation bilaterally. Heart regular rhythm rate about 90 no murmur. Abdomen is soft. Nondistended. Normal bowel sounds no signs of obstruction. She does have an ostomy in the right lower quadrant which she does not have a bag on. She has a vertical exploratory laparotomy incision with jax still in place even at the surgery was several months ago. No peritoneal signs. Soft. Patient moving all 4 extremities. Neurovascular intact. Calves are nontender. Neurologically she is awake and alert. No focal motor deficits. Test Results: CBC shows elevated white count of 22,000 however she is on prednisone and her tumor with prior white counts were 39 and 31,000. Hemoglobin is chronically low at 9 and that is where she stands today. Her electrolytes are normal gap of 11. Her creatinine is 2.1 previously was 3.3. She has known renal insufficiency. C. difficile was negative. Emergency Department Course and Treatment: Patient with diarrhea status post partial small bowel resection with ostomy. Rule out C. difficile. Screening labs to be obtained. Along with C. difficile. Treated with a liter normal saline. Repeat exam at 127 unchanged. Patient will be given dressings and supplies. She has a follow-up appointment this week with her surgeon at [facility]. Treatment Plan: [] Disposition: [] Impression: Diarrhea of uncertain etiology Status post partial small bowel resection secondary to bowel obstruction History of sarcoidosis This note was generated with [employer] software. It may contain incorrect words, spelling, and punctuation that were not noted in review of the chart prior to signing ED Disposition - Plan for ED Patient: Referrals: John Sears MD [Primary Care Provider] -
[2019-01-05] MEDS: Morphine 4 MG/ML Syringe IV (18:17)
[2019-01-05] MEDS: 0.9% Normal Saline 1,000 ML 1000 ML IV (18:17)
[2019-01-05] MEDS: Ondansetron 4 MG/2 ML Vial IV (18:18)
[2019-01-05 18:43] LABS: Absolute Neutrophil Count 14.8 X10^3/uL (2.0-7.7); Basophil# 0.11 X10^3/uL; Basophil% 0.5 % (0-1); Eosinophils% 2.7 % (0-5); Hematocrit 29.1 % (37-47); Hemoglobin 9.6 g/dl (12.0-15.0); Lymphocyte % 17.4 % (19-41); Mean Corpuscular Hgb 27.7 pg (27.0-32.0); Mean Corpuscular Volume 84.1 fL (81-99); Mean Platelet Vol. 8.4 fl (6.2-12.0); Monocyte# 2.78 X10^3/uL; Monocyte% 12.4 % (0-10); Neutrophil # 14.82 X10^3/uL (2.7-7.7); Neutrophil % 66.2 % (47-70); Platelet Count 434 K/mm3 (150-450); RBC Distribution Width CV 17.3 % (11.6-14.6); RBC Distribution Width SD 50.9 fl (35.1-43.9); Red Blood Count 3.46 M/mm3 (4.2-5.4); White Blood Count 22.4 K/mm3 (4.4-11.0)
[2019-01-05 18:44] LABS: Anion Gap 11 (5-15); BUN 19 mg/dL (7-18); BUN/Creat Ratio 8.9 RATIO (10-20); Calcium,Total 8.8 mg/dL (8.5-10.1); Chloride 101 mmol/L (98-107); Creatinine, Serum 2.14 mg/dL (0.55-1.02); EST Glomerular Filtration Rate 26 mL/min (>60); Est Glom Filt Rate - Afr Amer 31 mL/min (>60); Estimated Creatinine Clearance 24.05 ml/min; Glucose 89 mg/dL (74-106); Potassium 3.5 mmol/L (3.5-5.1); Sodium Level 136 mmol/L (136-145)
[2019-01-05 18:45] LABS: Differential Indicated SCAN CRITERIA MET; POSITIVE COUNT NO; POSITIVE DIFFERENTIAL YES; POSITIVE MORPHOLOGY NO
[2019-01-05 19:41] LABS: Differential Comment SCANNED
[2019-01-05 19:42] LABS: Absolute Nucleated RBC Count 0.04 10^3/uL (0-5); NRBC Flagged by Analyzer 0.2 % (0-5)
--- NOTE | 2019-01-05 19:53 | ED.RN ---
STOMA AREA HAS BEEN CLEANSED MULITPLE TIMES SINCE THIS NURSE ARRIVED AT 1900. WET DRESSING APPLIED TO WOUND AREA ALONG WITH AN OPSITE TO TRY AND PROTECT THAT OPEN WOUND FROM THE OSTOMY AREA THAT IS CONTINUING TO DRAIN LIQUID STOOL.
[2019-01-05 20:24] VITALS: BP 142/114; PULSE 104; RESP 20; TEMP 36.4; O2SAT 96
--- NOTE | 2019-01-05 20:29 | ED.DEP ---
ED Disposition - Plan for ED Patient: Disposition: Home or Assisted Living Referrals: John Sears MD [Primary Care Provider] - 3-5 Days if not improving Additional Instructions: Plenty of fluids for your diarrhea. Follow-up with your general surgeon at [facility] to have your jax removed and your wounds reassessed. Follow-up your primary care physician Dr. John Sears this week also.
[2019-01-05] MEDS: Albuterol 2.5 MG/3 ML VIAL.NEB. INHALATION (20:34)
[2019-01-05 20:35] VITALS: PULSE 104; RESP 20
[2019-01-05] MEDS: HYDROcodone Bitartrate/Apap 5/325 Tablet PO (21:28)
[2019-01-05] MEDS: Loperamide 2 MG Capsule 4 MG PO (21:28)
--- NOTE | 2019-01-05 21:40 | ED.RN ---
STERILE WET TO DRY DRSG TO OPEN SURGICAL WOUND AND A NEW OSTOMY APPLIANCE APPLIED TO THE STOMA SITE WITH PROTECTIVE ADHESIVE. IT HAD TO BE RETAPED TO TRY AND PREVENT LEAKAGE. SOME EXTRA SUPPLIES SENT WITH HER. HERE TO TAKE HER HOME.
[2019-01-05 21:42] VITALS: BP 135/93; PULSE 88; O2SAT 98
[2019-01-07 10:32] LABS: Pathologist Review Reviewed
== END 2019-01-05 21:43 | disposition home or self-care (01) ==
PROVIDERS: Emergency Provider Emergency Medicine; Family Provider Family Medicine; PCP Family Medicine
DX: R19.7 Diarrhea, unspecified (principal); D86.9 Sarcoidosis, unspecified; N28.9 Disorder of kidney and ureter, unspecified; I10 Essential (primary) hypertension; Z79.52 Long term (current) use of systemic steroids; Z79.899 Other long term (current) drug therapy; Z87.19 Personal history of other diseases of the digestive system; Z90.49 Acquired absence of other specified parts of digestive tract
CPT/HCPCS: 80048; 85025; 87493; 94640; 96361; 96374; 96375; 99285; J7030; A4216; J2405

== ENCOUNTER 2019-01-19 21:57 | Emergency (ER) | payer MEDICARE, SELFPAY ==
[2019-01-19 21:58] VITALS: BP 85/60; PULSE 101; RESP 16; TEMP 36.4; O2SAT 96; BMI 19.2
--- NOTE | 2019-01-19 22:54 | RAD_ITS ---
HISTORY: CONGESTION/COUGH EXAMINATION/TECHNIQUE: XR Chest 1 View: AP COMPARISON: December 28, 2018 FINDINGS: LINES/DEVICES: None. LUNGS: No consolidation, edema or effusion. No pneumothorax. Emphysematous changes are noted. Pulmonary fibrosis is greatest at the left lower lobe, the right upper lobe, and in the right lower lobe. The left lung is expanded to a greater degree than the right MEDIASTINUM AND CARDIOVASCULAR STRUCTURES: Cardiac silhouette not enlarged. Central airways and mediastinal contour are unremarkable. BONES AND SOFT TISSUES: Thoracic spondylosis is mild. Air-fluid levels within small bowel with loops within left upper quadrant are not perceived on the current study RAD/Chest 1 View (Portable) IMPRESSION: Pulmonary fibrosis and obstructive lung disease to a severe degree. The prominence of the interstitium is greater on today's study, possibly due to mild underlying edema. at 0033 Reported and signed by: Toño Sanon MD Electronically Signed: Toño Sanon MD at 0:32 EDT Tel , Service support ,
--- NOTE | 2019-01-19 22:54 | EKG12_ITS ---
Test Reason : SOB Blood Pressure : / mmHG Vent. Rate : 090 BPM Atrial Rate : 090 BPM P-R Int : 150 ms QRS Dur : 082 ms QT Int : 414 ms P-R-T Axes : 070 091 060 degrees QTc Int : 506 ms Normal sinus rhythm Biatrial enlargement Rightward axis Prolonged QT Abnormal ECG Confirmed by NIDIA GONZALES, MARCELINO ([id number]), editor department SAY LITTLE ([id number]) on 01/20/2019 11:54:22 AM Referred By: SARAH Confirmed By:MARCELINO JACBO MD
--- NOTE | 2019-01-19 22:56 | RAD_ITS ---
HISTORY: Pain. 2 views of the right leg. Of the patient's 72 previous radiologic exam since December 19, 2009, No comparison imaging of the right leg Findings: Bony alignment is normal. Joint spaces are preserved. No fractures. No foreign bodies. RAD/Tibia & Fibula 2 Views IMPRESSION: Normal. at 0031 Reported and signed by: Toño Sanon MD Electronically Signed: Toño Sanon MD at 0:30 EDT Tel , Service support ,
--- NOTE | 2019-01-19 23:00 | ED.RN ---
PT PULLED COLOSTOMY BAG OFF AND THREW IT IN TRASH. HAD PT CALL FOR SUPPLIES.
--- NOTE | 2019-01-19 23:15 | ED.RN ---
REPLAECED COLOSOMY BAG. ATTEMPTING IV
[2019-01-19] MEDS: 0.9% Normal Saline 1,000 ML 999 ML IV (23:30)
[2019-01-19] MEDS: fentaNYL 100 MCG/2 ML Ampul 50 MCG IV (23:48)
[2019-01-19] MEDS: Ondansetron 4 MG/2 ML Vial IV (23:49)
[2019-01-19 23:53] LABS: International Normalized Ratio 1.3
[2019-01-19 23:54] LABS: Absolute Lymphocyte Count 2.23 X10^3/ul (0.83-4.51); Absolute Neutrophil Count 17.5 X10^3/uL (2.0-7.7); Basophil# 0.05 X10^3/uL; Basophil% 0.2 % (0-1); Eosinophil# 0.12 X10^3/uL; Eosinophils% 0.5 % (0-5); Hematocrit 28.8 % (37-47); Lymphocyte # 2.23 X10^3/ul (4.0); Lymphocyte % 9.8 % (19-41); Mean Corp Hgb Conc 34.7 g/gl (32-36); Mean Corpuscular Hgb 27.2 pg (27.0-32.0); Mean Corpuscular Volume 78.5 fL (81-99); Mean Platelet Vol. 8.7 fl (6.2-12.0); Monocyte# 2.47 X10^3/uL; Monocyte% 10.9 % (0-10); Partial Thromboplast Time 38.1 Seconds (24.1-36.2); Platelet Count 426 K/mm3 (150-450); RBC Distribution Width CV 16.8 % (11.6-14.6); RBC Distribution Width SD 46.8 fl (35.1-43.9); Red Blood Count 3.67 M/mm3 (4.2-5.4); White Blood Count 22.7 K/mm3 (4.4-11.0)
[2019-01-19 23:57] VITALS: BP 98/67; PULSE 87; RESP 16; O2SAT 98
[2019-01-20 00:01] LABS: ALB/GLOB Ratio 0.5 RATIO (0.9-2.4); AST(SGOT) 40 U/L (15-37); Alanine Aminotransfer ALT/SGPT 37 U/L (13-56); Albumin, Serum 2.4 g/dL (3.2-5.0); Alkaline Phosphatase 183 U/L (45-117); Anion Gap 20 (5-15); BUN 56 mg/dL (7-18); BUN/Creat Ratio 10.9 RATIO (10-20); Calcium,Total 7.7 mg/dL (8.5-10.1); Chloride 89 mmol/L (98-107); Creatinine, Serum 5.15 mg/dL (0.55-1.02); EST Glomerular Filtration Rate 9 mL/min (>60); Est Glom Filt Rate - Afr Amer 11 mL/min (>60); Estimated Creatinine Clearance 9.51 ml/min; Globulin 4.6 g/dL (2.2-4.2); Glucose 73 mg/dL (74-106); Potassium 3.1 mmol/L (3.5-5.1); Sodium Level 129 mmol/L (136-145)
[2019-01-20 00:04] LABS: Differential Indicated SCAN CRITERIA MET; POSITIVE COUNT NO; POSITIVE DIFFERENTIAL YES; POSITIVE MORPHOLOGY NO
[2019-01-20 00:27] LABS: Differential Comment SCANNED; Platelet Estimate SLT INC (ADEQ)
[2019-01-20 00:28] LABS: Hypochromasia 3+; Macrocytosis 2+; Microcytosis 2+; Schistocytes RARE; Target Cells 3+
[2019-01-20 00:40] VITALS: BP 90/37
[2019-01-20 00:48] VITALS: BP 87/62; PULSE 89; RESP 18; TEMP 36.3; O2SAT 98
[2019-01-20 00:56] VITALS: TEMP 36.3
[2019-01-20] MEDS: 0.9% Normal Saline 1,000 ML 999 ML IV (00:58)
--- NOTE | 2019-01-20 01:16 | ED.VISSUMM ---
- ER Visit Summary Date of Service: 01/20/19 Chief Complaint: Vomiting History of Present Illness: The patient is a [address] John Sears. She is a poor informant. She reports that she has vomiting that began today. She is vomited 4 times. No blood or emesis. She reports that she has a colostomy that was placed in November that is been draining normally. She denies any abdominal pain. She denies fever or chills. No chest pain or shortness of breath. No dysuria or frequency. Patient reports that she has right leg pain that began 3 to 4 hours ago. Is a throbbing pain to the lateral calf is 10 out of 10 severity. Nothing makes this better or worse. She denies any recent trauma. No fall, MVA, or change in activity. Patient reports that she had an ostomy placed 1 to 2 months ago at [facility]. States this was due to my small intestine and my colon was taken out. She does not remember who performed the procedure. This was done at [facility]. Physical Examination: Vitals: 97.6, 85/60, 101, 16, 96% on room air which is not hypoxic. General: Well-developed, but cachectic. Head: Normocephalic atraumatic. Neck: Supple, no lymphadenopathy. No JVD. Nontender. Cardiovascular: Regular rate and rhythm. No murmurs. Respiratory: No respiratory distress. Crackles throughout bilaterally. Right greater than left. Abdominal: Soft, nontender, nondistended, normal bowel sounds. No guarding, rebound, or peritoneal signs. Back: Nontender. Extremities: Moderate tenderness palpation over the fibular head on the right. There is no contusion. No erythema, warmth, induration, or fluctuance to suggest infection. She has a 2+ dorsalis pedis pulse. Her calf is nontender., no edema. Skin: Normal color, no rash. Neurologic: Alert and oriented ?3. Cranial nerves II through XII are intact. Normal strength and sensation. Psych: Normal affect. Test Results: EKG sinus at [address] changes and a T wave inversion in lead V2. Her QTC is 506. However this is unchanged from last month. CBC is marked for a white count of 22.7 with 77 segmented neutrophils and 10 lymphocytes. H&H is 10.0 28.8. Chem-7 is marked for sodium of 129, potassium 3.1, chloride of 89, CO2 of 20, glucose of 73, BUN 56, creatinine of 5.15, and calcium of 7.7. Creatinine is range from 0.84-3.35 and 2019. Lactic acid is 3.0. LFTs are marked for an albumin of 2.4, globulin 4.6, alk phos of 183, AST 40. Chest x-ray shows severe pulmonary fibrosis/COPD with no infiltrate. Right tib-fib x-ray is negative. CT flank shows many air-fluid levels and dilated small bowel ileus versus small bowel obstruction. There is also 4.1 x 2.8 x 2.8 cm lesion is too fat inferior to the abdominal incision that is likely a hematoma or abscess. Emergency Department Course and Treatment: Patient was given 2 L of normal saline which is a more than 30 cc/kg bolus. Her heart rate decreased into the 80s. However, her systolic blood pressure remained in the 90s. Her mean arterial pressure has remained in the 70s. She was given a dose of Zosyn IV. She was also given Zofran and fentanyl. Treatment Plan: The patient was discussed with Dr. Melchor. Given her recent surgery at [facility] and small bowel obstruction and questionable abscess he asked that she be transferred back for further evaluation and treatment. She was discussed with Dr. Longoria in the emergency department at the request Dr. Smith, the surgeon, who accepted the patient in transfer. Disposition: Transferred in serious condition. Impression: 1. Acute renal insufficiency. 2. Lactic acidosis. 3. Hypotension responsive with IV fluids. 4. Small bowel obstruction. 5. Abdominal wall mass. 6. Right leg pain, uncertain cause. 7. Severe sepsis. 8. Sarcoidosis on prednisone. 9. Critical care time 30 minutes. This note was generated with [employer] dictation software. It may contain incorrect words, spelling, and punctuation that were not noted in review of the chart prior to signing ED Disposition - Plan for ED Patient: Referrals: John Sears MD [Primary Care Provider] -
[2019-01-20] MEDS: HYDROmorphone 1 MG/ML Syringe IV (01:23)
--- NOTE | 2019-01-20 01:26 | ED.RN ---
[employer]ED [employer]
[2019-01-20 01:27] VITALS: BP 95/62; PULSE 89; RESP 20; TEMP 35.5; O2SAT 100
[2019-01-20 01:28] LABS: Bacteria 0 SEEN /hpf (None Seen); Mucous, Urine 0 SEEN /hpf (<or=2+); Red Blood Cells-Urine 0 SEEN /hpf (0-5); Squamous Epithelial Cells - UA 0 SEEN /hpf (5-10)
[2019-01-20 01:32] LABS: Color, Urine Yellow (Yellow); Glucose, Dipstick Normal (Normal); Ketone-Dipstick Negative (Negative); Leukocyte Esterase-Dipstick 25 /ul (Negative); Nitrite-Dipstick Negative (Negative); Occult Blood-Urine 10 /ul (Negative); Protein-Dipstick 30 mg/dl (Negative); Specific Gravity, Urine 1.015 (1.002-1.030); Urine Bilirubin Dipstick Negative (Negative); Urine Clarity Clear (Clear); Urine Urobilinogen Normal (Normal)
[2019-01-20 01:38] LABS: White Blood Cells 0-5 SEEN /hpf (0-5)
[2019-01-20 01:55] VITALS: BP 90/69; PULSE 86; RESP 19; TEMP 35.7; O2SAT 100
[2019-01-20 02:12] VITALS: BP 90/69; BP 91/62; PULSE 86; PULSE 89; RESP 15; RESP 19; TEMP 35.7; TEMP 35.8; O2SAT 100; O2SAT 98
[2019-01-20 03:36] LABS: Reflex Lactate? Y
[2019-01-20 15:24] LABS: Pathologist Review Reviewed
--- NOTE | 2019-01-20 22:55 | CT_ITS ---
HISTORY: EMESIS, FLU LIKE SYMPTOMS, UNABLE TO EAT FOR 2 DAYS, S/P SMALL BOWEL RESECTION 3 FEET DUE TO SBO, OSTOMY BAG PRESENT, SARCOIDOSIS, HTN, SZ TECHNIQUE: Helically acquired images were obtained of the abdomen and pelvis without oral or IV contrast. A radiation dose optimization technique was used for this scan. COMPARISON: CT scan of December 28, 2018 FINDINGS: # of images incl. paperwork: 382 LUNG BASES: Honeycombing within the lung bases remain severe. The heart is not enlarged. CT abdomen: Bones are unremarkable. The gallbladder remains. Liver, spleen, pancreas, and adrenal glands are normal. The kidneys are normal. The aorta is tortuous with minimal atherosclerotic disease. There is no intra-or extrahepatic biliary ductal dilatation. CT pelvis: Trace pelvic ascites is present. The uterus is not enlarged. The appendix is not identified, and may have been resected. The bladder is normal. Previous bowel surgery. Right hemiabdomen ostomy. Midline incision is open with gas dissecting down to the parietal peritoneum. Rectus abdominis muscles or diastases. Just caudal to the open incision there is a well-defined mass that extends from the rectus abdominis muscles superficially to the skin. It measures 4.1 x 2.[address]/Abdomen/Pelvis without Cont IMPRESSION: Open midline abdominal incision. Inferior to the abdominal incision is a 4.1 x 2.8 x 2.8 cm lesion within the subcutaneous fat. It has a central density of 18 Hounsfield units, It likely represents an abscess. It could represent hematoma. Right hemiabdomen ostomy. Many air-fluid levels and dilated loops of small bowel suggestive of an ileus or a small bowel obstruction. If it is a small bowel obstruction I cannot identify the transition point. Severe basilar lung disease, consistent with history provided of sarcoidosis Individualized dose optimization techniques were used for this CT. at 0038 Reported and signed by: Toño Sanon MD Electronically Signed: Toño Sanon MD at 0:37 EDT Tel , Service support ,
== END 2019-01-20 02:53 | disposition short-term general hospital (02) ==
LOC: ED 23:22
PROVIDERS: Emergency Provider Emergency Medicine; Family Provider Family Medicine; PCP Family Medicine
DX: N28.9 Disorder of kidney and ureter, unspecified (principal)
CPT/HCPCS: 36415; 51702; 71045; 73590; 74176; 80053; 81001; 83605; 84484; 85025; 85610; 85730; 87040; 87086; 93005; 96361; 96365; 96375; 99285; J7030; A4216; J2405

== ENCOUNTER 2019-02-22 07:13 | Emergency (ER) | payer MEDICARE, SELFPAY ==
[2019-02-22 07:15] VITALS: BP 141/93; PULSE 94; RESP 20; TEMP 36.8; O2SAT 100; BMI 20.2
--- NOTE | 2019-02-22 07:31 | RAD_ITS ---
STUDY: X-RAY CHEST REASON FOR EXAM: Female, 53 years old. Pain. TECHNIQUE: Single AP portable view of the chest. COMPARISON: January 20, 2019 and September 28, 2018 FINDINGS: The lungs are hyperexpanded. There are advanced interstitial and groundglass opacities in the right upper and bilateral lower lungs with peripheral honeycombing. There is no demonstrated pleural abnormality. Normal size heart. Normal mediastinum and jordin. Normal visualized pulmonary arteries. Normal visualized aortic arch and descending thoracic aorta. Normal visualized thoracic spine. There is healing right rib fracture. There is no demonstrated abnormality of the visualized soft tissue structures of the upper abdomen. RAD/Chest 1 View (Portable) IMPRESSION: Advanced fibrotic changes are similar to the prior exams. Electronically Signed: Shaka Shanks MD at 8:10 EDT , Service support ,
--- NOTE | 2019-02-22 07:31 | EKG12_ITS ---
Test Reason : GEN ILLNESS Blood Pressure : / mmHG Vent. Rate : 089 BPM Atrial Rate : 089 BPM P-R Int : 180 ms QRS Dur : 092 ms QT Int : 384 ms P-R-T Axes : 072 098 052 degrees QTc Int : 467 ms Normal sinus rhythm Rightward axis Borderline ECG Confirmed by NIDIA GONZALES, MARCELINO ([id number]), acquisition editor HUNG MANNING ([id number]) on 02/25/2019 1:54:27 PM Referred By: RICKIE Confirmed By:MARCELINO JACOB MD
[2019-02-22 07:47] VITALS: PULSE 92; RESP 18
[2019-02-22] MEDS: Ipratropium/Albuterol Sulfate 3 ML AMPUL.NEB INHALATION (07:47)
[2019-02-22] MEDS: Morphine 4 MG/ML Syringe IV ×2 (08:10→08:38)
[2019-02-22] MEDS: 0.9% Normal Saline 1,000 ML 150 ML IV (08:11)
[2019-02-22] MEDS: Ondansetron 4 MG/2 ML Vial IV (08:11)
[2019-02-22 08:41] LABS: Absolute Lymphocyte Count 3.34 X10^3/ul (0.83-4.51); Absolute Neutrophil Count 6.6 X10^3/uL (2.0-7.7); Basophil# 0.14 X10^3/uL; Basophil% 1.1 % (0-1); Eosinophils% 5.5 % (0-5); Hematocrit 26.2 % (37-47); Lymphocyte # 3.34 X10^3/ul (4.0); Lymphocyte % 26.3 % (19-41); Mean Corp Hgb Conc 34.4 g/gl (32-36); Mean Corpuscular Volume 81.4 fL (81-99); Mean Platelet Vol. 8.2 fl (6.2-12.0); Monocyte# 1.91 X10^3/uL; Monocyte% 15.1 % (0-10); Neutrophil # 6.57 X10^3/uL (2.7-7.7); Neutrophil % 51.8 % (47-70); Platelet Count 260 K/mm3 (150-450); RBC Distribution Width CV 19.1 % (11.6-14.6); RBC Distribution Width SD 57.5 fl (35.1-43.9); Red Blood Count 3.22 M/mm3 (4.2-5.4); White Blood Count 12.7 K/mm3 (4.4-11.0)
[2019-02-22 08:42] LABS: Differential Indicated SCAN CRITERIA MET; POSITIVE COUNT NO; POSITIVE DIFFERENTIAL YES; POSITIVE MORPHOLOGY NO
[2019-02-22 08:56] LABS: Anion Gap 9 (5-15); BUN 19 mg/dL (7-18); Chloride 113 mmol/L (98-107); Creatinine, Serum 1.36 mg/dL (0.55-1.02); EST Glomerular Filtration Rate 43 mL/min (>60); Est Glom Filt Rate - Afr Amer 52 mL/min (>60); Estimated Creatinine Clearance 37.84 ml/min; Glucose 83 mg/dL (74-106); Potassium 2.9 mmol/L (3.5-5.1); Sodium Level 136 mmol/L (136-145)
[2019-02-22 09:10] LABS: Differential Comment SCANNED
[2019-02-22 09:11] LABS: Anisocytosis 2+; Macrocytosis 1+; Microcytosis 1+; Polychromasia 1+
[2019-02-22 09:14] LABS: D-Dimer Quantitative (DVT/PE) 4.08 FEU/ug/m (0.27-0.49)
--- NOTE | 2019-02-22 09:17 | CT_ITS ---
STUDY: CTA CHEST REASON FOR EXAM: Female, 53 years old. Cough. Pain. COPD. RADIATION DOSAGE (If Supplied By Facility): CTDIvol = ( 6.29 ) mGy, DLP = ( 120.13 ) mGycm TECHNIQUE: The examination was performed with the intravenous administration of 75 IV Isovue 370. Post-processing of the angiographic images was performed, with multiplanar reformation and 3D reconstruction. Individualized dose optimization techniques were used for this CT. COMPARISON: Chest x-ray February 21, 2019. Chest CT June 07, 2018.. FINDINGS: Normal enhancement of the main pulmonary artery and right and left pulmonary arteries. Normal enhancement of the bilateral peripheral pulmonary arteries. There is no demonstrated pulmonary embolism. Normal thoracic aorta and visualized great vessels. There is no demonstrated aortic dissection. Normal heart and pericardium. Normal mediastinum. Normal hilar regions. Normal visualized trachea and bronchi. The lungs are well expanded. There aren't advanced cystic changes with honeycombing involving the right upper lobe and bilateral lower lungs There are increased right apical pleural and parenchymal opacities. Normal chest wall structures. There are stable nonunited left sixth and seventh rib fractures. There is acute fractures of the right sixth and seventh and eighth rib fractures. There is healing left anterior seventh rib fracture. Normal visualized upper abdomen. CT/CTA Chest W/WO Contrast IMPRESSION: CTA chest examination, without a demonstrated pulmonary embolism or arterial dissection. Advanced cystic and fibrotic changes. There is increasing right apical pleural and parenchymal density. There are recent and nonunited right rib fractures. Electronically Signed: Shaka Shanks MD at 12:32 EDT , Service support ,
[2019-02-22 09:20] VITALS: BP 133/91; PULSE 94; RESP 20; TEMP 36.8; O2SAT 98
--- NOTE | 2019-02-22 09:20 | ED.RN ---
DR DAMIAN NOTIFIED D-DIMER=4.08. NNO VOICED
[2019-02-22 12:17] VITALS: BP 147/90; PULSE 95; RESP 16; O2SAT 95
--- NOTE | 2019-02-22 12:45 | ED.DCSUM_ITS ---
- ER Visit Summary Date of Service: 02/22/19 Chief Complaint: [Right-sided chest pain] History of Present Illness: The patient is a 53 F [the emergency department for a history of worsening pain to the right chest. Patient states that she has been coughing which is been a chronic thing for her. She has had some thick phlegm at times. Denies any fever. This intermittent complain of some shortness of breath with exertion. Pain is worse with cough. She denies any recent travel. Patient has had surgery recently for an abdominal abscess with recent colostomy placed about a month ago at [facility]. Patient also with history of hypertension and sarcoidosis.] Patient states that when sh e coughs there is a crackling taking place in the right chest. Physical Examination: [HEENT-PERRLA, EOMI. Cranial nerves II through XII grossly intact. TMs clear. Mucous membranes moist. No adenopathy. Cardiovascular-regular rate and rhythm without murmur or ectopy Lungs-clear to auscultation, chest wall stable without crepitus or subcu emphysema. Patient does have tenderness to palpation over the right chest wall in the midaxillary line. Abdomen-normoactive bowel sounds, soft, nontender, no rebound or rigidity, no peritoneal signs. Extremities-intact ?4, normal range of motion, normal pulses, atraumatic] Test Results: [EKG obtained on arrival shows sinus rhythm with a ventricular rate of 69 bpm with no acute segment changes. ABC with differential for white count of 12.7, hemoglobin 9, hematocrit 26, platelet 260. Chemistries unremarkable other than a potassium of 2.9 and a CO2 of 14. BUN was 19 and creatinine 1.36. Troponin is less than 0.15. D-dimer was elevated at over [address] of the chest was obtained which showed no evidence of PE or dissection patient was noted to have acute fractures of ribs 6, 7, and 8.] Emergency Department Course and Treatment: [She was medicated with morphine and Zofran initially. Patient and I discussed treatment options such as admission for pain control however patient does not want to be admitted as she states that she has been in hospitals and wants to go home. Patient just wants something for the pain.] Treatment Plan: [Will be given a prescription for Percocet and advised to follow-up with primary care physician 3 to 5 days.] Disposition: [Discharged home stable condition.] Impression: [Right sixth, seventh, eighth rib fractures] This note was generated with [employer] dictation software. It may contain incorrect words, spelling, and punctuation that were not noted in review of the chart prior to signing ED Disposition - Plan for ED Patient: Referrals: John Sears MD [Primary Care Provider] -
--- NOTE | 2019-02-22 12:49 | ED.DEP ---
ED Disposition - Plan for ED Patient: Instructions: FRACTURE, Rib Prescriptions: Oxycodone HCl/Acetaminophen [Percocet 5/325] 1 tab PO Q6H PRN PRN 5 Days #20 tab PRN Reason: Pain Prescription Printed Referrals: Jhon Sears MD [Primary Care Provider] - 3-5 Days
[2019-02-23 01:19] LABS: Absolute Nucleated RBC Count 0.14 10^3/uL (0-5); NRBC Flagged by Analyzer 1.1 % (0-5)
[2019-02-25 10:03] LABS: Pathologist Review Reviewed
== END 2019-02-22 13:07 | disposition home or self-care (01) ==
LOC: ED 07:33
PROVIDERS: Emergency Provider Emergency Medicine; Family Provider Family Medicine; PCP Family Medicine
DX: S22.41XA Multiple fractures of ribs, right side, initial encounter for closed fracture (principal); R79.89 Other specified abnormal findings of blood chemistry; E87.6 Hypokalemia; X58.XXXA Exposure to other specified factors, initial encounter; Y93.9 Activity, unspecified; Y92.9 Unspecified place or not applicable; D86.9 Sarcoidosis, unspecified; I10 Essential (primary) hypertension; Z79.899 Other long term (current) drug therapy
CPT/HCPCS: 71045; 71275; 80048; 84484; 85025; 85379; 93005; 94640; 96361; 96374; 96375; 99285; J7030; Q9967; A4216; J2405

== ENCOUNTER → 2019-02-24 16:17 | Outpatient (CLI) | payer MEDICARE, SELFPAY ==
[2019-02-22 07:15] VITALS: BMI 20.2
[2019-02-24 17:50] LABS: Anion Gap 12 (5-15); BUN 19 mg/dL (7-18); BUN/Creat Ratio 17.6 RATIO (10-20); Calcium,Total 10.3 mg/dL (8.5-10.1); Chloride 115 mmol/L (98-107); Creatinine, Serum 1.08 mg/dL (0.55-1.02); EST Glomerular Filtration Rate 56 mL/min (>60); Est Glom Filt Rate - Afr Amer 68 mL/min (>60); Glucose 94 mg/dL (74-106); Magnesium 1.6 mg/dL (1.6-2.6); Potassium 4.1 mmol/L (3.5-5.1); Sodium Level 138 mmol/L (136-145)
[2019-02-24 18:02] LABS: Vitamin D,25 Hydroxy 18.6 ng/mL (29.95-100.01)
[2019-02-24 18:24] LABS: PTHIN 9.3 pg/mL (18.4-80.1)
== END ==
PROVIDERS: Family Provider Family Medicine; PCP Family Medicine; Visit Provider Family Medicine
DX: M80.80XA Other osteoporosis with current pathological fracture, unspecified site, initial encounter for fracture (principal); E87.6 Hypokalemia
CPT/HCPCS: 36415; 80048; 82306; 83735; 83970

== ENCOUNTER 2019-02-25 11:51 | Inpatient (IN) | payer MEDICARE, SELFPAY ==
[2019-02-25] VITALS (8 sets, daily range): BP systolic 118–141; BP diastolic 70–90; PULSE 80–114; RESP 18–28; TEMP 36.4–37.3; O2SAT 94–100; BMI 18.3; BMI 18.4; BMI 17.8
--- NOTE | 2019-02-25 13:10 | RAD_ITS ---
STUDY: X-RAY CHEST REASON FOR EXAM: Female, 53 years old. Rib pain following coughing. TECHNIQUE: Single AP portable view of the chest. COMPARISON: Comparison is made with prior study dated February 22, 2019. FINDINGS: Stable increased interstitial markings in both lungs worse at the lung bases with areas of bronchiectasis and honeycombing in keeping with chronic end-stage pulmonary disease. Blunting of both cosmetic angles. Normal size heart. Normal mediastinum and jordin. Normal visualized pulmonary arteries. Normal visualized aortic arch and descending thoracic aorta. Normal visualized thoracic spine. Nondisplaced fractures of the right fifth sixth and seventh ribs. There is no demonstrated abnormality of the visualized soft tissue structures of the upper abdomen. RAD/Chest 1 View (Portable) IMPRESSION: Nondisplaced fractures of the right fifth sixth and seventh ribs. Stable chronic interstitial scarring in both lungs. Electronically Signed: Fredy Olmos, at 14:03 EDT , Service support ,
[2019-02-25 14:09] LABS: Anion Gap 10 (5-15); BUN 18 mg/dL (7-18); BUN/Creat Ratio 18.6 RATIO (10-20); Chloride 114 mmol/L (98-107); Creatinine, Serum 0.97 mg/dL (0.55-1.02); EST Glomerular Filtration Rate 64 mL/min (>60); Est Glom Filt Rate - Afr Amer 77 mL/min (>60); Estimated Creatinine Clearance 48.03 ml/min; Glucose 95 mg/dL (74-106); Potassium 4.2 mmol/L (3.5-5.1); Sodium Level 138 mmol/L (136-145)
[2019-02-25 14:14] LABS: Absolute Lymphocyte Count 2.36 X10^3/ul (0.83-4.51); Absolute Neutrophil Count 21.7 X10^3/uL (2.0-7.7); Basophil# 0.14 X10^3/uL; Basophil% 0.5 % (0-1); Eosinophil# 0.24 X10^3/uL; Eosinophils% 0.9 % (0-5); Hematocrit 32.2 % (37-47); Lymphocyte # 2.36 X10^3/ul (4.0); Lymphocyte % 8.6 % (19-41); Mean Corp Hgb Conc 34.2 g/gl (32-36); Mean Corpuscular Hgb 27.8 pg (27.0-32.0); Mean Corpuscular Volume 81.5 fL (81-99); Mean Platelet Vol. 8.3 fl (6.2-12.0); Monocyte# 2.81 X10^3/uL; Monocyte% 10.3 % (0-10); Neutrophil # 21.73 X10^3/uL (2.7-7.7); Neutrophil % 79.3 % (47-70); Platelet Count 403 K/mm3 (150-450); RBC Distribution Width CV 19.7 % (11.6-14.6); RBC Distribution Width SD 58.5 fl (35.1-43.9); Red Blood Count 3.95 M/mm3 (4.2-5.4); White Blood Count 27.4 K/mm3 (4.4-11.0)
[2019-02-25 14:15] LABS: POSITIVE COUNT NO; POSITIVE MORPHOLOGY NO
[2019-02-25] MEDS: 0.9% Normal Saline 1,000 ML 150 ML IV (14:35)
[2019-02-25] MEDS: Ondansetron 4 MG/2 ML Vial IV (14:35)
[2019-02-25] MEDS: Morphine 4 MG/ML Syringe IV (14:35)
[2019-02-25 14:39] LABS: Differential Comment SCANNED
--- NOTE | 2019-02-25 14:49 | ED.DCSUM_ITS ---
- ER Visit Summary Date of Service: 02/25/19 Chief Complaint: [Right-sided chest pain History of Present Illness: The patient is a 53 F [presents with complaint of right-sided chest pain for several weeks. Patient was seen by myself several days ago for the same complaint and had lab work including a CT scan that showed for fractures of ribs 6 7 and 8 on the right side. Patient refused admission at that time for pain control. She was sent home with Percocet but now states that she cannot manage the pain at home. Patient denies any new injury. She does complain of some slight increased shortness of breath and recently saw her primary care physician yesterday who increased her home oxygen of 4 L at all times. Patient denies any hemoptysis. Patient has had some sputum production at times that she described as yellow in color. She has had no fevers. Patient has history of asthma, COPD, hypertension, and sarcoidosis.] Physical Examination: [HEENT-PERRLA, EOMI. Cranial nerves II through XII grossly intact. TMs clear. Mucous membranes moist. No adenopathy. Cardiovascular-regular rate and rhythm without murmur or ectopy Lungs-clear to auscultation, chest wall stable without crepitus or subcu emphysema. Right chest wall-tenderness to the mid axillary line. Abdomen-normoactive bowel sounds, soft, nontender, no rebound or rigidity, no peritoneal signs. Extremities-intact ?4, normal range of motion, normal pulses, atraumatic] Test Results: [CBC with differential showed a chronically elevated white blood cell count of 27.4, hemoglobin 11, hematocrit 32, platelets 4 3. Chemistries unremarkable. Chest x-ray obtained showed fractures of right ribs #5, 6, and 7. Emergency Department Course and Treatment: [Patient was medicated with Dilaudid 1 mg IV.] Treatment Plan: [Admit for pain management] Disposition: [Admit] Impression: [Right rib fractures Intractable pain] This note was generated with [employer] dictation software. It may contain incorrect words, spelling, and punctuation that were not noted in review of the chart prior to signing ED Disposition - Plan for ED Patient: Referrals: John Sears MD [Primary Care Provider] -
--- NOTE | 2019-02-25 14:50 | NURSING ---
MED SURG OBS ASHELFAH RIB FXS, INTRACTABLE PAIN
--- NOTE | 2019-02-25 14:59 | HP.PCM_ITS ---
Problem List (1) Chronic respiratory failure Status: Chronic Qualifiers: (2) Bronchiectasis Status: Chronic Qualifiers: (3) COPD (chronic obstructive pulmonary disease) Status: Chronic Qualifiers: (4) Chronic pain Status: Chronic Qualifiers: (5) Leukocytosis Status: Chronic Qualifiers: (6) HTN (hypertension) Status: Chronic Qualifiers: (7) Sarcoidosis Status: Chronic History of Present Illness Date of Admission: 02/25/19 Chief Complaint: Right-sided chest pain. The patient is a 53 year old F with past medical history as mentioned above presented to the emergency room because of right-sided chest pain. Patient complains of right lateral chest pain, sharp pain, 10 out of 10 in severity, not radiating, aggravated by taking a deep breath or moving, associated with increasing shortness of breath and cough and without relieving factors. Patient was seen in the ED few days ago, had CT scan chest as well as chest x-ray and she was found to have nonunited left sixth and seventh rib fractures as well as acute fractures of the right sixth, seventh and eighth ribs. At that visit to the ER, patient refused to be admitted and she was discharged home on pain medicine. Her pain has been uncontrolled and according to her , she has been laying at bed, not eating or drinking for the last several days. Yesterday, she saw her PCP and she was given another pain medicine but today, she came to the emergency department because her pain is uncontrolled. She needed to go up on her oxygen to 4 L and she is usually on 3 L of oxygen. She reported chronic cough and increasing shortness of breath. She denies fever or chills. On January 21, 2016, patient came to the emergency room because of vomiti ng, had CT scan abdomen and pelvis and she was found to have small bowel obstruction, found to have abdominal wall mass/questionable abscess as well as renal failure and lactic acidosis, was transferred to [facility] and according to , she underwent abdominal surgery with bowel resection/colostomy as well as colostomy, no documents available. Patient reported mild abdominal discomfort and she mentioned that she has not been eating because of the right lateral chest pain not because of abdominal pain. In the emergency department, she was afebrile, tachycardic, blood pressure was stable, pulse ox was 96% on 3 L. Her routine blood work was remarkable for significant leukocytosis which is chronic, carbon dioxide of 14, otherwise unremarkable. Chest x-ray revealed nondisplaced fractures of the right fifth, sixth and seventh ribs. She is being admitted for intractable right lateral chest pain due to nondisplaced fifth, sixth and seventh rib fractures with failure of outpatient therapy. Past Medical History Past Medical History (Chronic Problems): Chronic Problems (Last Updated 02/25/19 @ 14:59 by Idalia Blankenship MD) Chronic respiratory failure (Chronic) Bronchiectasis (Chronic) Asthma (Chronic) COPD (chronic obstructive pulmonary disease) (Chronic) Chronic pain (Chronic) Leukocytosis (Chronic) HTN (hypertension) (Chronic) Sarcoidosis (Chronic) Medical History: Medical History (Last Updated 02/25/19 @ 14:59 by Idalia Blankenship MD) Bronchiectasis (Chronic) J47.9 Asthma (Chronic) J45.909 COPD (chronic obstructive pulmonary disease) (Chronic) J44.9 Leukocytosis (Chronic) D72.829 HTN (hypertension) (Chronic) I10 Sarcoidosis (Chronic) D86.9 Allergies cephalexin monohydrate [From Keflex] Allergy (Mild, Verified 02/25/19 11:52) Itching doxycycline Adverse Reaction (Verified 02/25/19 11:52) Vomiting moxifloxacin HCl [From Avelox] Adverse Reaction (Verified 02/25/19 11:52) Vomiting Home Medications: Ambulatory Orders Medication Instructions Recorded Albuterol Inhaler [Ventolin Hfa] 1 - 2 puff INHALATION Q6H PRN PRN 09/05/16 Albuterol Aerosols [Ventolin 2.5 mg INHALATION Q4H PRN PRN 08/13/17 Aerosols] D-Methorphan Hb/Prometh HCl 5 ml PO 4X/DAY PRN 12/28/18 [Promethazine-Dm Syrup] Docusate Sodium [Doc-Q-Lace] 100 mg PO DAILY 12/28/18 Losartan/Hydrochlorothiazide 1 each PO BID 12/28/18 [Losartan-Hctz 50-12.5 mg Tab] Magnesium 400 mg PO BID 12/28/18 Magnesium Hydroxide [Milk Of 30 ml PO DAILY PRN PRN 12/28/18 Magnesia] Metoprolol Tartrate 25 mg PO BID 12/28/18 Tizanidine HCl [Zanaflex] 4 mg PO BID PRN 12/28/18 Oxycodone HCl/Acetaminophen 1 tab PO Q6H PRN PRN 5 Days #20 tab 02/22/19 [Percocet 5/325] Surgical History: Surgical History (Last Updated 02/25/19 @ 14:59 by Idalia Blankenship MD) History of lung biopsy (Inactive) Z98.890 History of tubal ligation (Inactive) Z98.51 Surgical History: - - Bilateral tubal ligation. lung biopsy ' Psychiatric History: No pertinent psych hx EVISCERATOR History: No pertinent EVISCERATOR history Lives: Spouse/ Significant Other Smoking Status: Former smoker Alcohol: None Drugs: None - *Family History Maternal History Items: Diabetes, Hypertension, Stroke Paternal History Items: Stroke Review of Systems Constitutional: Reports: Anorexia, Weakness, Fatigue. Denies: Chills, Fever Eyes: Denies: Blurred vision, Double vision, Drainage, Redness HEENT: Denies: Difficulty Hearing, Ear Pain, Eye Pain, Nasal Congestion, Sore Throat Cardiovascular: Reports: Chest Pain. Denies: Chest Pressure, Chest Tightness, Edema, Heaviness, Light Headedness, Orthopnea, Paroxysmal Noc. Dyspnea, Syncope Respiratory: Reports: Cough, Shortness of breath at rest, Sputum production. Denies: Pleuritic Pain, Shortness of Breath, Wheezing Gastrointestinal: Reports: Abdominal Pain. Denies: Constipation, Diarrhea, Nausea, Vomiting Genitourinary: Denies: Dysuria, Frequency, Hematuria Musculoskeletal: Denies: Arm Pain, Back Pain, Leg Pain, Shoulder Pain Skin: Denies: Dryness, Rash Neurological: Denies: Balance problems, Double vision, Change in Speech, Slurred speech, Confusion, Headaches, Incoordination, Numbness, Tingling Psychiatric: Denies: Anxiety, Depression Endocrine: Denies: Change in Body Habitus, Polydipsia, Polyuria VTE Information - Inpt Only VTE Present on Admission: No VTE Mechan Device Prophylaxis: SCD's VTE Pharm Prophylaxis ordered?: No - Physical Exam General: Alert, Oriented x3, Cooperative, - - Moderately short of breath, in pain. HEENT: Atraumatic, PERRLA, EOMI, Normocephalic Oral: No Gingival or Mucosal Lesions/ Ulcerations, Dry Mucosa Neck: Supple, No JVD, Negative Carotid Bruits, Trachea Midline, Thyroid Normal Size and Texture Lungs: Rales, Rhonchi, Short of Breath, - - Decreased breath sounds bilateral, coarse crackles on the right base, rhonchi. Cardiovascular: Regular rate, Regular Rhythm, Normal S1, Normal S2, PMI Normal, Tachycardic Abdomen: Bowel Sounds Present, Soft, Non Tender, Non-Distended, No Hepato- splenomegaly, - - Colostomy bag in place. Extremities: No clubbing, No cyanosis, No edema Skin: No rashes, No breakdown Lymphatic: No Cervical, Supraclavicular, or Inguinal Adenopathy Neurological: Cranial nerves II-XII grossly intact, Motor Exam 5/5 strength throughout Psych/Mental Status: Normal Affect, Appropriate, Alert and oriented to time, place, person, mood and affect Vital Signs Temp Pulse Resp BP Pulse Ox 97.5 F L 114 H 21 H 118/90 H 96 02/25/19 11:53 02/25/19 11:53 02/25/19 11:53 02/25/19 11:53 02/25/19 11:53 Oxygen Flow Rate (L/min) 3 Oxygen Delivery Method Nasal Cannula Weight: 100 lb Body Mass Index (BMI) 18.3 Finger Stick Blood Glucose 156 Laboratory Tests Past 24 Hrs 02/25/19 02/25/19 13:50 13:50 WBC 27.4 H RBC 3.95 L Hgb 11.0 L Hct 32.2 L MCV 81.5 MCH 27.8 MCHC 34.2 RDW 19.7 H RDW Differential 58.5 H Plt Count 403 MPV 8.3 Immature Gran % (Auto) 0.400 Neut % (Auto) 79.3 H Lymph % (Auto) 8.6 L [place] % (Auto) 10.3 H Eos % (Auto) 0.9 Baso % (Auto) 0.5 Absolute Neuts (auto) 21.7 H Absolute Lymphs (auto) 2.36 Total Counted Not Reportable Differential Comment SCANNED Diff Path Review December Sodium 138 Potassium 4.2 Chloride 114 H Carbon Dioxide 14.0 L Anion Gap 10 BUN 18 Creatinine 0.97 Estim Creat Clear Calc 48.03 Est GFR (MDRD) Af Amer 77 Est GFR (MDRD) Non-Af 64 BUN/Creatinine Ratio 18.6 Glucose 95 Calcium 11.0 H Clinical Impression(s) from Imaging Studies Chest X-Ray 02/25/19 13:10 IMPRESSION: Nondisplaced fractures of the right fifth sixth and seventh ribs. Stable chronic interstitial scarring in both lungs. Electronically Signed: Fredy Olmos, at 14:03 EDT , Service support , Assessment/Plan This is a 53 years old female patient presented to the emergency room because of intractable right lateral chest pain due to nondisplaced fifth, sixth and seventh rib fractures, has been on pain medicine for the last several days but patient is not able to manage, has been not eating or drinking and she is being admitted for intractable pain for management. #1 intractable right lateral chest pain: Due to rib fractures, failed outpatient treatment, patient has been on Percocet and Zanaflex without improvement. She is requiring more oxygen because of pleuritic chest pain. Chest x-ray reviewed. Plan: Admit to [facility] floor, telemetry monitoring, start IV morphine as needed, OxyIR as needed, topical lidocaine patch daily, incentive spirometer, IV fluids, IV antiemetics, Tylenol as needed, bronchodilators, repeat CBC and BMP tomorrow morning, PT OT evaluation and treatment. 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 Unknown etiology, patient denies any trauma or mechanical fall. CTA showed no PE or dissection at that time. Plan for pain control as above. Chest x-ray showed no acute pneumonia. #3 recent history of major abdominal surgery: Patient came to ER on January 20, 2019, found to have small bowel obstruction and abdominal wall mass versus ab scess, was transferred to [facility] she underwent major surgery with bowel resection/colectomy and colostomy. There is no official documents available at this time. Patient mentioned that she has been not eating or drinking because of the blood chest pain not because of abdominal pain. She reported mild abdominal discomfort. Denied nausea vomiting. She mentioned that colostomy bag has been working. We will try to obtain records from [facility]. #4 leukocytosis: This is chronic, unclear etiology. At this time, no evidence of infection. Chest x-ray showed no acute findings. Plan to do urinalysis, repeat CBC in the morning. #5 COPD/chronic respiratory failure: On home oxygen at 3 L. Will give DuoNeb every 6 hours, albuterol as needed, incentive spirometer. #6 sarcoidosis: Not on medication at this point, plan as above. #7 hypertension: Blood pressure stable, continue losartan and HCTZ as well as metoprolol. #8 DVT prophylaxis: SCDs. This note was generated with [employer] D[employer] dictation software. It may contain incorrect words, spelling, and punctuation that were not noted in checking the note before signing. Code Visit Inpatient E&M: 55445 Init Hosp L3
[2019-02-25] MEDS: Lactated Ringers 1,000 ML 75 ML IV (17:37)
[2019-02-25] MEDS: Ipratropium/Albuterol Sulfate 3 ML AMPUL.NEB INHALATION (19:26)
[2019-02-25] MEDS: Acetaminophen 325 MG Tablet 650 MG PO (20:19)
[2019-02-25] MEDS: oxyCODONE 5 MG Tablet PO (20:19)
[2019-02-25] MEDS: Senna Tablet 1 TABLET PO (22:14)
[2019-02-25] MEDS: Famotidine 20 MG Tablet PO (22:14)
[2019-02-26] VITALS (19 sets, daily range): BP systolic 127–157; BP diastolic 76–99; PULSE 89–117; RESP 20–28; TEMP 36.2–37; O2SAT 94–100
[2019-02-26] MEDS: 0.9% NaCl Peripheral Flush Adult/Peds IV ×2 (00:10→04:42)
[2019-02-26] MEDS: Morphine 2 MG/ML Syringe IV ×4 (00:10→18:37)
[2019-02-26 00:35] LABS: Absolute Nucleated RBC Count 0.35 10^3/uL (0-5); Differential Indicated SCAN CRITERIA MET; NRBC Flagged by Analyzer 1.3 % (0-5); POSITIVE DIFFERENTIAL YES
--- NOTE | 2019-02-26 02:17 | RAD_ITS ---
STUDY: X-RAY CHEST REASON FOR EXAM: Female, 53 years old. Dyspnea. TECHNIQUE: AP portable chest. COMPARISON: February 25, 2019. February 22, 2019. January 20, 2019. CT chest February 22, 2019. FINDINGS: There is underlying chronic interstitial lung disease. However there is increased patchy opacities at both lung bases as well as right suprahilar region especially in comparison to study of January 20, 2019.. No effusions. No pneumothorax. Normal size heart. Normal mediastinum and jordin. Normal visualized pulmonary arteries. Normal visualized aortic arch and descending thoracic aorta. Normal visualized thoracic spine. Nondisplaced right posterior rib fractures unchanged. There is no demonstrated abnormality of the visualized soft tissue structures of the upper abdomen. RAD/Chest 1 View (Portable) IMPRESSION: Appearance suggestive of bilateral pneumonia superimposed on chronic underlying lung disease. Electronically Signed: Adam Burnett MD at 3:17 EDT , Service support ,
[2019-02-26 06:23] LABS: Absolute Lymphocyte Count 2.51 X10^3/ul (0.83-4.51); Absolute Neutrophil Count 17.3 X10^3/uL (2.0-7.7); Basophil# 0.11 X10^3/uL; Basophil% 0.5 % (0-1); Eosinophil# 0.69 X10^3/uL; Eosinophils% 2.9 % (0-5); Hematocrit 24.8 % (37-47); Hemoglobin 8.4 g/dl (12.0-15.0); Lymphocyte # 2.51 X10^3/ul (4.0); Lymphocyte % 10.6 % (19-41); Mean Corp Hgb Conc 33.9 g/gl (32-36); Mean Corpuscular Volume 82.7 fL (81-99); Mean Platelet Vol. 8.7 fl (6.2-12.0); Monocyte% 12.7 % (0-10); Neutrophil # 17.32 X10^3/uL (2.7-7.7); Platelet Count 350 K/mm3 (150-450); RBC Distribution Width CV 19.8 % (11.6-14.6); RBC Distribution Width SD 59.2 fl (35.1-43.9); White Blood Count 23.7 K/mm3 (4.4-11.0)
[2019-02-26 06:28] LABS: Anion Gap 12 (5-15); BUN 15 mg/dL (7-18); Chloride 117 mmol/L (98-107); Creatinine, Serum 0.71 mg/dL (0.55-1.02); EST Glomerular Filtration Rate 91 mL/min (>60); Est Glom Filt Rate - Afr Amer 110 mL/min (>60); Estimated Creatinine Clearance 63.94 ml/min; Glucose 72 mg/dL (74-106); Potassium 3.6 mmol/L (3.5-5.1); Sodium Level 142 mmol/L (136-145)
[2019-02-26 06:36] LABS: Differential Indicated SCAN CRITERIA MET; POSITIVE COUNT NO; POSITIVE DIFFERENTIAL YES; POSITIVE MORPHOLOGY NO
[2019-02-26 06:55] LABS: Hypochromasia 3+; Macrocytosis 3+; Ovalocyte RARE; Polychromasia RARE; Schistocytes 1+; Target Cells 3+; Tear Drop Cell RARE
[2019-02-26 06:56] LABS: Differential Comment SCANNED
[2019-02-26] MEDS: Lactated Ringers 1,000 ML 75 ML IV ×2 (06:56→21:12)
[2019-02-26] MEDS: oxyCODONE 5 MG Tablet PO ×3 (06:56→21:11)
[2019-02-26 06:57] LABS: Absolute Nucleated RBC Count 0.25 10^3/uL (0-5); NRBC Flagged by Analyzer 1.1 % (0-5)
[2019-02-26] MEDS: Acetaminophen 325 MG Tablet 650 MG PO (06:57)
[2019-02-26] MEDS: Famotidine 20 MG Tablet PO ×2 (09:17→21:11)
--- NOTE | 2019-02-26 09:23 | PCM.PN.HOSP ---
Subjective: Patient seen and examined. She was admitted for intractable left flank pain on account of rib fractures. She will be managed on outpatient basis with pain meds but pain was too severe and uncontrollable so she came in. Patient states she thinks that the rib fractures happened on account of excessive coughing from sarcoidosis. She has been lost to follow-up at [facility] for sarcoidosis because she says is too far away and difficult to get there. She denies any trauma and denies any history of violence. Patient lives with her and denies any domestic violence issues. She states pain is better controlled. She has a cough which is chronic and is productive of greenish sputum. Review of systems otherwise negative. Labs and vitals reviewed. Vitals/I&O's: Vital Signs Temp Pulse Resp BP Pulse Ox 98.6 F 104 H 22 H 132/86 H 94 02/26/19 09:03 02/26/19 09:03 02/26/19 09:03 02/26/19 09:03 02/26/19 09:03 Oxygen Flow Rate (L/min) 3 Oxygen Delivery Method Nasal Cannula Weight: 97 lb 7.109 oz Body Mass Index (BMI) 17.8 Finger Stick Blood Glucose 156 Intake and Output for Last 24 Hours 02/24/19 02/25/19 02/26/19 23:59 23:59 23:59 Intake Total 1389 / 1389 Balance 1389 / 1389 General: Alert, Oriented x3, Cooperative, Lethargic, - - very frail HEENT: Atraumatic, PERRLA, EOMI, Normocephalic Oral: Dry Mucosa Neck: Supple, No JVD, Negative Carotid Bruits Lungs: - - decreased breath sounds in all lung [place], has mild crackles bibasally. Cardiovascular: Regular rate, Regular Rhythm, Normal S1, Normal S2, No murmurs Abdomen: Bowel Sounds Present, Soft, Non Tender, Non-Distended, No Hepato-splenomegaly, - - ileostomy bag Extremities: No clubbing, No cyanosis, No edema, Capillary Refill Less than 3 Seconds Skin: No rashes, No breakdown Musculoskeletal: - - has moderate tenderness on palpation of right flank Lymphatic: No Cervical, Supraclavicular, or Inguinal Adenopathy Neurological: Cranial nerves II-XII grossly intact, Neuro grossly intact, Motor Exam 5/5 strength throughout Psych/Mental Status: Normal Affect, Appropriate, Alert and oriented to time, place, person, mood and affect Laboratory Results 02/25/19 13:50: WBC 27.4 H, RBC 3.95 L, Hgb 11.0 L, Hct 32.2 L, MCV 81.5, MCH 27.8, MCHC 34.2, RDW 19.7 H, RDW Differential 58.5 H, Plt Count 403, MPV 8.3, Immature Gran % (Auto) 0.400, Neut % (Auto) 79.3 H, Lymph % (Auto) 8.6 L, [place] % (Auto) 10.3 H, Eos % (Auto) 0.9, Baso % (Auto) 0.5, Absolute Neuts (auto) 21.7 H, Absolute Lymphs (auto) 2.36, Total Counted Not Reportable, Nucleated RBC % 1.3, Differential Comment SCANNED, Diff Path Review December foll, Absolute Retic 0.35 02/25/19 13:50: Sodium 138, Potassium 4.2, Chloride 114 H, Carbon Dioxide 14.0 L, Anion Gap 10, BUN 18, Creatinine 0.97, Estim Creat Clear Calc 48.03, Est GFR (MDRD) Af Amer 77, Est GFR (MDRD) Non-Af 64, BUN/Creatinine Ratio 18.6, Glucose 95, Calcium 11.0 H 02/26/19 05:20: WBC 23.7 H, RBC 3.00 L, Hgb 8.4 L, Hct 24.8 L, MCV 82.7, MCH 28.0, MCHC 33.9, RDW 19.8 H, RDW Differential 59.2 H, Plt Count 350, MPV 8.7, Immature Gran % (Auto) 0.300, Neut % (Auto) 73.0 H, Lymph % (Auto) 10.6 L, [place] % (Auto) 12.7 H, Eos % (Auto) 2.9, Baso % (Auto) 0.5, Absolute Neuts (auto) 17.3 H, Absolute Lymphs (auto) 2.51, Total Counted Not Reportable, Nucleated RBC % 1.1, Differential Comment SCANNED, Diff Path Review May foll, Polychromasia RARE, Hypochromasia 3+, Macrocytosis 3+, Target Cells 3+, Tear Drop Cells RARE, Ovalocytes RARE, Schistocytes 1+, Absolute Retic 0.25 02/26/19 05:20: Sodium 142, Potassium 3.6, Chloride 117 H, Carbon Dioxide 13.0 L, Anion Gap 12, BUN 15, Creatinine 0.71, Estim Creat Clear Calc 63.94, Est GFR (MDRD) Af Amer 110, Est GFR (MDRD) Non-Af 91, BUN/Creatinine Ratio 21.0 H, Glucose 72 L, Calcium 10.0 Diagnostic Data Chest X-Ray 02/26/19 02:17 IMPRESSION: Appearance suggestive of bilateral pneumonia superimposed on chronic underlying lung disease. Electronically Signed: Adam Burnett MD at 3:17 EDT , Service support , Current Medications Acetaminophen (Tylenol) 650 mg PO Q6H PRN PRN PRN Reason: Mild Pain (1-3)/Temp > 100.7 F Last Admin: 02/26/19 06:57 Dose: 650 mg Documented by: Albuterol Sulfate (Ventolin Aerosols) 2.5 mg INHALATION Q2H PRN PRN PRN Reason: Shortness of breath, wheezing Albuterol/Ipratropium (Duoneb) 3 ml INHALATION Q6H.RT [facility] Last Admin: 02/26/19 07:15 Dose: Not Given Documented by: Famotidine (Pepcid) 20 mg PO BID [facility] Last Admin: 02/26/19 09:17 Dose: 20 mg Documented by: Lactated Ringer's () 1,000 mls @ 75 mls/hr IV .[id number] [facility] Last Admin: 02/26/19 06:56 Dose: 75 mls/hr Documented by: Lidocaine (Lidoderm Patch) 2 patch TOPICAL DAILY [facility]; Protocol Magnesium Hydroxide (Milk Of Magnesia) 30 ml PO DAILY PRN PRN PRN Reason: Constipation Morphine Sulfate () 1 - 2 mg IV Q4H PRN PRN PRN Reason: Severe pain (7-1010) Last Admin: 02/26/19 09:17 Dose: 2 mg Documented by: Nutritional Formula (Lactose Free) (Ensure Enlive) 120 ml PO 4X/DAY [facility] Last Admin: 02/25/19 22:14 Dose: Not Given Documented by: Ondansetron HCl (Zofran) 4 mg IV Q8H PRN PRN PRN Reason: NAUSEA/VOMITING Oxycodone HCl (Oxyir) 5 mg PO Q4H PRN PRN PRN Reason: Moderate Pain (4-6/10) Last Admin: 02/26/19 06:56 Dose: 5 mg Documented by: Traci (Senokot) 1 tablet PO BID DWAINE Last Admin: 02/26/19 09:17 Dose: 1 tablet Documented by: Sodium Chloride () 10 - 40 ml IV UD PRN PRN Reason: SALINE FLUSH Last Admin: 02/26/19 04:42 Dose: 10 ml Documented by: Medical Necessity - Tobacco Use Smoking Status: Former smoker Tobacco Use: Cigarettes Assessment/Plan 1. Intractable left flank pain due to rib fractures CXR showed acute nodisplaced fractures of right 5th-7th ribs and stable nonunited left 6th-7th ribs on lidocaine patch, tylenol and IV morphine as well as oxycodone PT/OT on board incentive spirometry 2. Rib fractures Etiology of rib fractures is unclear. Patient denies any trauma or mechanical fall or any history of violence of any form. Patient states he thinks is due to excessive coughing from sarcoidosis. Management is under 1. 3. Sepsis due to Pneumonia patient is tachycardic and tachypneic; SIRS criteria is 3/4 she also has leukocytosis with white cell count of 23.7. However this is chronic. she does have a history of bronchiectasis and sarcoidosis she has no fever, though she is so frail and immunosuppressed absence of fever doesnt rule out an infection on 3L of oxygen, which is her baseline. CXR suggested superimposed bilateral pneumonia in addition to chronic lung disease CT chest done on 02/22/19: negative for any PE, but showed increaseing right apical pleural and parenchymal density I think it is reasonable to start patient on antibiotics;l will start IV levofloxacin get sputum cultures and urine for strep and Legionella 3. Sarcoidosis: has a history of sarcoidosis but has been lost to follow up. says her perinatal breastfeeding assistant is at [facility], but hasn't seen him in a while because [place] is too far for her to get to will consult pulmonology to establish care here and for close follow up on breathing treatments on leflunomide and bactrim for pneumonia prophylaxis on Promethazine cough syrup and guafenesin 4. Non-anion gap metabolic acidosis. Bicarb is 13. Has had episodes of low bicarb this year. We will get ABG to further investigate this acidosis. Anion gap is 12. 5. Hypertension: On losartan and metoprolol as well as HCTZ 6. History of recent intestinal obstruction status post ileostomy Had surgery in January at a congenital office she was transferred from [facility] after she presented with abdominal pain. Ileostomy bag in place. Consult wound care.\ Records pending from [facility] 7. Chronic hypoxic respiratory failure due to sarcoidosis: On 3 L of oxygen which is her baseline. 8. Moderate protein-calorie malnutrtion: patient very emaciated; BMI is ~ 17. Consult nutrition DVT prophylaxis: will start heparin Code Visit Inpatient E&M: 53623 Subs Hosp L3
[2019-02-26] MEDS: Lidocaine 5% Patch 2 PATCH TOPICAL (09:24)
--- NOTE | 2019-02-26 09:56 | NURSING ---
DR PEARSON CALLED, PT TO TRANSFER TO PCU. SO CHARGE NURSE AWARE. CPS IN DRAWING ABGS
--- NOTE | 2019-02-26 09:57 | NURSING ---
Was asked to see patient for ostomy needs. into room to assess appliance. leak noted. patient states she had surgery approx 2 months ago in [place] for a rupture. do not currently have records from [place], but they have been requested from the doctor. removed the ostomy appliance from the right lower abdomen. stoma is well budded and beefy red. is most likely an ileostomy, but will know more with the records from [place]. stoma measures approx 7/8. peristomal skin is intact. there was a moderate amount of loose brown/green stool noted in the appliance. cleansed peristomal skin with warm water. pat dry. applied a new 2 piece flat Radha appliance with an [employer] ring. pt tolerated well. dressing to the left lower abdomen changed as well. there is a small healing wound noted. no signs of infection. cleansed with soap and water. pat dry and applied a new dry dressing with Medipore tape.
--- NOTE | 2019-02-26 11:22 | CPS ---
Multiple unsuccessful attempts by respiratory therapy to obtain ABG including attempt with ultrasound guidance. Dr. Salas notified.
[2019-02-26] MEDS: Ceftriaxone 1 GM/50 ML BAG IV ×2 (12:56→21:11)
[2019-02-26] MEDS: Ipratropium/Albuterol Sulfate 3 ML AMPUL.NEB INHALATION ×2 (13:00→19:59)
--- NOTE | 2019-02-26 13:58 | PCM.CONS.PUL ---
Problem List (1) Rib fractures Status: Acute Qualifiers: Encounter type: subsequent encounter Rib fracture type: multiple ribs Fracture type: closed Laterality: right Fracture healing: with delayed healing Qualified Code(s): S22.41XG - Multiple fractures of ribs, right side, subsequent encounter for fracture with delayed healing (2) Chronic respiratory failure Status: Chronic Qualifiers: Respiratory failure complication: hypoxia (3) Bronchiectasis Status: Chronic Qualifiers: Bronchiectasis type: uncomplicated Qualified Code(s): J47.9 - Bronchiectasis, uncomplicated (4) Chronic pain Status: Chronic Qualifiers: Chronic pain type: chronic pain syndrome (5) Leukocytosis Status: Chronic Qualifiers: (6) HTN (hypertension) Status: Chronic Qualifiers: Hypertension type: essential hypertension (7) Sarcoidosis Status: Chronic Reason for Consult Date of Consultation: 02/26/19 Reason for Consultation: Sarcoidosis History of Present Illness: The patient is a 53 year old F, with past Orlin history listed below, who presented to [facility] on 02/25/2019 secondary to right-sided chest pain for several weeks. Patient had been seen previously and a CT scan showed fractures of the right sixth, seventh and eighth rib. Patient refused admission previously for pain control was sent home with Percocet. Patient was seen by her primary care physician recently and increased to 4 L nasal cannula. Patient has not had any hemoptysis, but did report a cough that is intermittently productive of yellow sputum. Patient has not had any fevers. Patient recently did have some abdominal pain, but states that it is her chest pain that is keeping her from breathing deep. In the ER, patient was noted to have significant right-sided chest wall tenderness in the mid axillary line. Laboratory work-up did show a leukocytosis, which is chronically present for her. Otherwise work-up was relatively unremarkable. Patient was admitted to [facility] for pain management. However, over the course of the day, patient became more tachypneic was transferred to the PCU for further valuation and close monitoring. Patient has been seen by myself as an inpatient several times previously. Patient does have a long history of sarcoidosis that was cared for at [facility] previously, but patient routinely fails to follow-up with her sarcoid specialist. Patient is not currently had any inhalers or medical therapy for her sarcoid. Patient is unaware if she has had any pulmonary function test. Patient states that she cracked her ribs secondary to coughing. Patient states that she has had a dry cough since that time and this was not allowed to heal. Patient has seen pain management in the past, but has since been dismissed secondary to failure to follow-up per her report. Review of systems otherwise negative x10 systems. Past Medical History Past Medical History (Chronic Problems): Chronic Problems (Last Updated 02/25/19 @ 14:59 by Idalia Blankenship MD) Chronic respiratory failure (Chronic) Bronchiectasis (Chronic) Asthma (Chronic) COPD (chronic obstructive pulmonary disease) (Chronic) Chronic pain (Chronic) Leukocytosis (Chronic) HTN (hypertension) (Chronic) Sarcoidosis (Chronic) Medical History: Medical History (Last Updated 02/25/19 @ 14:59 by Idalia Blankenship MD) Bronchiectasis (Chronic) J47.9 Asthma (Chronic) J45.909 COPD (chronic obstructive pulmonary disease) (Chronic) J44.9 Leukocytosis (Chronic) D72.829 HTN (hypertension) (Chronic) I10 Sarcoidosis (Chronic) D86.9 Allergies cephalexin monohydrate [From Keflex] Allergy (Mild, Verified 02/25/19 11:52) Itching doxycycline Adverse Reaction (Verified 02/25/19 11:52) Vomiting moxifloxacin HCl [From Avelox] Adverse Reaction (Verified 02/25/19 11:52) Vomiting Home Medications: Ambulatory Orders Medication Instructions Recorded Albuterol Aerosols [Ventolin 2.5 mg INHALATION Q4H PRN PRN 08/13/17 Aerosols] D-Methorphan Hb/Prometh HCl 5 ml PO 4X/DAY PRN 12/28/18 [Promethazine-Dm Syrup] Docusate Sodium [Doc-Q-Lace] 100 mg PO DAILY 12/28/18 Magnesium 400 mg PO BID 12/28/18 Magnesium Hydroxide [Milk Of 30 ml PO DAILY PRN PRN 12/28/18 Magnesia] Metoprolol Tartrate 25 mg PO BID 12/28/18 Tizanidine HCl [Zanaflex] 2 - 4 mg PO BID PRN PRN 12/28/18 Albuterol Inhaler [Ventolin Hfa 2 puff INHALATION Q4H PRN PRN 02/25/19 (SP)] Atorvastatin Calcium 10 mg PO QHS 02/25/19 Benzonatate [Tessalon Perle] 100 mg PO TID PRN PRN 02/25/19 Clonidine HCl 0.2 mg PO QHS PRN PRN 02/25/19 Duloxetine HCl 60 mg PO DAILY 02/25/19 Fluticasone Propionate [Flonase 2 spray IH DAILY 02/25/19 Allergy Relief] Folic Acid 1 mg PO DAILY@0800 02/25/19 Furosemide [Lasix] 20 mg PO PRN 02/25/19 Gabapentin 300 mg PO BID 02/25/19 Gabapentin 600 mg PO QHS 02/25/19 Guaifenesin [Mucinex] 600 mg PO BID 02/25/19 Hydromorphone HCl 1 - 2 mg PO Q6H PRN PRN 02/25/19 Ipratropium [Atrovent (SP)] 1 puff INHALATION Q6H PRN PRN 02/25/19 Ipratropium/Albuterol Sulfate 3 ml INHALATION Q6H PRN PRN 02/25/19 [Duoneb] Leflunomide [Arava] 20 mg PO DAILY 02/25/19 Levetiracetam [Keppra] 500 mg PO 02/25/19 Loperamide HCl [Imodium A-D] 2 mg PO PRN PRN 02/25/19 Losartan Potassium [Cozaar] 50 mg PO BID 02/25/19 Mirtazapine [Remeron] 30 mg PO QHS 02/25/19 Oxycodone HCl 10 mg PO Q4H PRN PRN 02/25/19 Potassium Citrate [Potassium 20 meq PO BID 02/25/19 Citrate ER] Promethazine HCl 6.25 - 12.5 mg PO Q6H PRN PRN 02/25/19 Sucralfate [Carafate] 1 gm PO 4X/DAY 02/25/19 Sulfamethoxazole/Trimethoprim 1 ea PO MOWEFR 02/25/19 [Sulfamethoxazole-Tmp Ds Tablet] Triamcinolone Acet/Dimethicone 1 ea TP PRN PRN 02/25/19 [Ellzia Jose Miguel] Surgical History: Surgical History (Last Updated 02/25/19 @ 14:59 by Idalia Blankenship MD) History of lung biopsy (Inactive) Z98.890 History of tubal ligation (Inactive) Z98.51 Surgical History: - - Bilateral tubal ligation. lung biopsy ' Psychiatric History: No pertinent psych hx [employer] SUPPORT MANAGER History: No pertinent [employer] SUPPORT MANAGER history Lives: Spouse/ Significant Other Smoking Status: Former smoker Tobacco Use: Cigarettes Alcohol: None Drugs: None - *Family History Maternal History Items: Diabetes, Hypertension, Stroke Paternal History Items: Stroke Review of Systems Comment: See HPI Patient Problems: Active and Suspected Problems (Last Updated 02/25/19 @ 14:59 by Idalia Blankenship MD) Rib fractures (Acute) Objective: All imaging was personally reviewed. CT scan of the chest shows little change in lung fibrosis compared to previous. Patient does have rib fractures noted. - Physical Exam General: Alert, Oriented x3, Cooperative, - - Mild to moderate distress with guarding of right chest. HEENT: Atraumatic, PERRLA, EOMI, Normocephalic, - - No scleral icterus or injection noted. Oral: Moist Mucosa, No Gingival or Mucosal Lesions/ Ulcerations Neck: Supple, No JVD, No Nodes, Trachea Midline Lungs: No rhonchi, No wheeze, Diminished, Rales, - - Visible splinting noted. Cardiovascular: Normal S1, Normal S2, No murmurs, No rub noted, No Gallop, Tachycardic Abdomen: Bowel Sounds Present, Soft, Non Tender, Non-Distended Extremities: No cyanosis, No edema, Capillary Refill Less than 3 Seconds, Clubbing Skin: No rashes, No breakdown Musculoskeletal: No Tenderness to Palpation of Joints or Extremities Lymphatic: No Cervical, Supraclavicular, or Inguinal Adenopathy Neurological: Cranial nerves II-XII grossly intact, Neuro grossly intact, Motor Exam 5/5 strength throughout Psych/Mental Status: Anxious, Restless Vital Signs Temp Pulse Resp BP Pulse Ox 36.6 C 109 H 24 H 141/89 H 98 02/26/19 11:19 02/26/19 13:00 02/26/19 13:00 02/26/19 11:19 02/26/19 11:41 Oxygen Flow Rate (L/min) 3 Oxygen Delivery Method Nasal Cannula Weight: 44.2 kg Body Mass Index (BMI) 17.8 Finger Stick Blood Glucose 156 Intake and Output for Last 24 Hours 02/24/19 02/25/19 02/26/19 23:59 23:59 23:59 Intake Total 1549 / 1549 Balance 1549 / 1549 Laboratory Tests Past 24 Hrs 02/25/19 02/25/19 02/26/19 13:50 13:50 05:20 WBC 27.4 H 23.7 H RBC 3.95 L 3.00 L Hgb 11.0 L 8.4 L Hct 32.2 L 24.8 L MCV 81.5 82.7 MCH 27.8 28.0 MCHC 34.2 33.9 RDW 19.7 H 19.8 H RDW Differential 58.5 H 59.2 H Plt Count 403 350 MPV 8.3 8.7 Immature Gran % (Auto) 0.400 0.300 Neut % (Auto) 79.3 H 73.0 H Lymph % (Auto) 8.6 L 10.6 L [place] % (Auto) 10.3 H 12.7 H Eos % (Auto) 0.9 2.9 Baso % (Auto) 0.5 0.5 Absolute Neuts (auto) 21.7 H 17.3 H Absolute Lymphs (auto) 2.36 2.51 Total Counted Not Reportable Not Reportable Nucleated RBC % 1.3 1.1 Differential Comment SCANNED SCANNED Diff Path Review May foll May foll Polychromasia RARE Hypochromasia 3+ Macrocytosis 3+ Target Cells 3+ Tear Drop Cells RARE Ovalocytes RARE Schistocytes 1+ Absolute Retic 0.35 0.25 Sodium 138 Potassium 4.2 Chloride 114 H Carbon Dioxide 14.0 L Anion Gap 10 BUN 18 Creatinine 0.97 Estim Creat Clear Calc 48.03 Est GFR (MDRD) Af Amer 77 Est GFR (MDRD) Non-Af 64 BUN/Creatinine Ratio 18.6 Glucose 95 Calcium 11.0 H 02/26/19 05:20 WBC RBC Hgb Hct MCV MCH MCHC RDW RDW Differential Plt Count MPV Immature Gran % (Auto) Neut % (Auto) Lymph % (Auto) [place] % (Auto) Eos % (Auto) Baso % (Auto) Absolute Neuts (auto) Absolute Lymphs (auto) Total Counted Nucleated RBC % Differential Comment Diff Path Review Polychromasia Hypochromasia Macrocytosis Target Cells Tear Drop Cells Ovalocytes Schistocytes Absolute Retic Sodium 142 Potassium 3.6 Chloride 117 H Carbon Dioxide 13.0 L Anion Gap 12 BUN 15 Creatinine 0.71 Estim Creat Clear Calc 63.94 Est GFR (MDRD) Af Amer 110 Est GFR (MDRD) Non-Af 91 BUN/Creatinine Ratio 21.0 H Glucose 72 L Calcium 10.0 Clinical Impression(s) from Imaging Studies Chest X-Ray 02/25/19 13:10 IMPRESSION: Nondisplaced fractures of the right fifth sixth and seventh ribs. Stable chronic interstitial scarring in both lungs. Electronically Signed: Fredy Olmos, at 14:03 EDT , Service support , Chest X-Ray 02/26/19 02:17 IMPRESSION: Appearance suggestive of bilateral pneumonia superimposed on chronic underlying lung disease. Electronically Signed: Adam Burnett MD at 3:17 EDT , Service support , Assessment/Plan All Active Problems (Last Updated 02/25/19 @ 14:59 by Idalia Blankenship MD) Rib fractures (Acute) RECOMMENDATIONS: 1. Consult pain management for possible rib block 2. Continue supplemental oxygen to keep saturations greater than 90% 3. Encourage incentive spirometer 4. Increase activity as tolerated IMPRESSIONS: 1. Acute hypoxic respiratory insufficiency secondary to rib fractures Patient is reporting a chronic cough, which is unlikely to be controlled given her baseline of sarcoidosis. Could initiate patient on prednisone therapy, but this would likely slow healing of rib fractures. Patient has had issues with opiate misuse in the past, so I would recommend consulting pain management for a possible rib block. Review of the chest x-ray is more consistent with atelectasis secondary to voluntary guarding on my review. Patient is currently being treated with a lidocaine patch. 2. Bronchiectasis secondary to sarcoidosis Patient does have a history of sarcoidosis and was followed at the [facility] previously. Patient is failed to follow-up with both the [facility] and our office in the past. Review of the CAT scan does not show any significant progression compared to previous imaging. Patient would benefit from pulmonary toileting with Acapella, but I doubt she will comply with this given her rib fractures. Patient could be treated with steroid therapy, but this would likely slow healing of rib fractures and patient is not giving any signs or symptoms of exacerbation at this time. Could consider sending a sputum culture, but high clinical suspicion patient will grow staph or Pseudomonas given her baseline colonization. Low clinical suspicion for active infection 3. Hyperchloremic non-anion gap metabolic acidosis Likely secondary to volume resuscitation with normal saline. Increase free water intake. 4. Hypertension/history of recent intestinal obstruction/moderate protein calorie malnutrition/history of noncompliance Complicates care, management, recovery and prognosis. Dietitian has been consulted. Blood pressure is adequate at this time. Code Visit Inpatient E&M: 24993 Init Hosp L3
--- NOTE | 2019-02-26 14:24 | NURSING ---
1000, REPORT CALLED TO U. PT TRANSPORTED TO [facility] VIA BED 103
--- NOTE | 2019-02-26 14:27 | CASEMGMT ---
This RN CM to room to somplete CM assessment and pt is sleeping without distress at this time. RN asks this RN CM to defer assessment until tomorrow. SStaten RN CM
[2019-02-27] VITALS (12 sets, daily range): BP systolic 114–144; BP diastolic 73–87; PULSE 80–141; RESP 18–36; TEMP 36.6–37.3; O2SAT 96–100
[2019-02-27] MEDS: oxyCODONE 5 MG Tablet PO ×5 (01:33→20:28)
[2019-02-27] MEDS: Morphine 2 MG/ML Syringe IV ×4 (03:34→17:31)
[2019-02-27] MEDS: Acetaminophen 325 MG Tablet 650 MG PO ×3 (06:12→20:28)
[2019-02-27 06:37] LABS: Anion Gap 8 (5-15); BUN 8 mg/dL (7-18); Calcium,Total 9.5 mg/dL (8.5-10.1); Chloride 113 mmol/L (98-107); Creatinine, Serum 0.73 mg/dL (0.55-1.02); EST Glomerular Filtration Rate 89 mL/min (>60); Est Glom Filt Rate - Afr Amer 108 mL/min (>60); Estimated Creatinine Clearance 62.19 ml/min; Glucose 97 mg/dL (74-106); Potassium 3.3 mmol/L (3.5-5.1); Sodium Level 139 mmol/L (136-145)
[2019-02-27 06:38] LABS: Absolute Lymphocyte Count 2.32 X10^3/ul (0.83-4.51); Basophil% 0.4 % (0-1); Eosinophil# 0.57 X10^3/uL; Eosinophils% 2.2 % (0-5); Hematocrit 26.7 % (37-47); Lymphocyte # 2.32 X10^3/ul (4.0); Lymphocyte % 8.8 % (19-41); Mean Corp Hgb Conc 33.7 g/gl (32-36); Mean Corpuscular Hgb 27.8 pg (27.0-32.0); Mean Corpuscular Volume 82.4 fL (81-99); Mean Platelet Vol. 8.6 fl (6.2-12.0); Monocyte% 16.6 % (0-10); Neutrophil # 18.97 X10^3/uL (2.7-7.7); Neutrophil % 71.5 % (47-70); Platelet Count 368 K/mm3 (150-450); RBC Distribution Width CV 20.1 % (11.6-14.6); RBC Distribution Width SD 61.1 fl (35.1-43.9); Red Blood Count 3.24 M/mm3 (4.2-5.4); White Blood Count 26.5 K/mm3 (4.4-11.0)
[2019-02-27 06:39] LABS: Differential Indicated SCAN CRITERIA MET; POSITIVE COUNT NO; POSITIVE DIFFERENTIAL YES; POSITIVE MORPHOLOGY YES
[2019-02-27 06:40] LABS: Absolute Nucleated RBC Count 0.22 10^3/uL (0-5); NRBC Flagged by Analyzer 0.8 % (0-5)
[2019-02-27 06:59] LABS: Differential Comment SCANNED
[2019-02-27 07:00] LABS: Hypochromasia 3+; Macrocytosis 2+; Polychromasia RARE; Target Cells 3+
[2019-02-27] MEDS: Ipratropium/Albuterol Sulfate 3 ML AMPUL.NEB INHALATION ×3 (07:22→19:09)
--- NOTE | 2019-02-27 08:26 | PCM.PN.PUL ---
Patient Problems: Active and Suspected Problems (Last Updated 02/25/19 @ 14:59 by Idalia Blankenship MD) Rib fractures (Acute) Subjective: Patient doing okay overnight. Patient still complaining of significant rib pain. Patient reports she was evaluated by pain management last night, but there are no notes noted. Patient reportedly was offered a rib block, but had questions. Patient denies any significant production with cough. Patient remains on baseline nasal cannula oxygen. - Physical Exam General: Alert, Oriented x3, Cooperative, No apparent distress, Well developed, Well nourished, - - No conversational dyspnea. Appears older than stated age. HEENT: Atraumatic, PERRLA, EOMI, Normocephalic, - - No scleral icterus or injection noted. Oral: Moist Mucosa, No Gingival or Mucosal Lesions/ Ulcerations Neck: Supple, No JVD, No Nodes, Trachea Midline Lungs: No rhonchi, No wheeze, Diminished, Rales, - - Symmetric expansion. No dullness to percussion. Cardiovascular: Normal S1, Normal S2, No murmurs, No rub noted, No Gallop, Tachycardic Abdomen: Bowel Sounds Present, Soft, Non Tender, Non-Distended Extremities: No cyanosis, No edema, Capillary Refill Less than 3 Seconds, Clubbing Skin: - - No significant change compared to previous Musculoskeletal: No Tenderness to Palpation of Joints or Extremities, No Muscle Wasting Lymphatic: No Cervical, Supraclavicular, or Inguinal Adenopathy Neurological: Cranial nerves II-XII grossly intact, Neuro grossly intact, Motor Exam 5/5 strength throughout Psych/Mental Status: Alert and oriented to time, place, person, mood and affect Vital Signs Temp Pulse Resp BP Pulse Ox 37.3 C H 80 18 144/76 H 96 02/27/19 06:15 02/27/19 07:22 02/27/19 07:22 02/27/19 06:15 02/27/19 07:22 Oxygen Flow Rate (L/min) 3 Oxygen Delivery Method Nasal Cannula Weight: 44.2 kg Body Mass Index (BMI) 17.8 Finger Stick Blood Glucose 156 Intake and Output for Last 24 Hours 02/25/19 02/26/19 02/27/19 23:59 23:59 23:59 Intake Total 2351 / 2351 2292 / 2292 Output Total 500 / 500 Balance 2351 / 2351 1792 / 1792 Microbiology Past 72 Hours 02/27/19 04:00 Legionella Antigen - Final Urine, Clean Catch Streptococcus pneumoniae Antigen (M - Final Laboratory Tests Past 24 Hrs 02/27/19 02/27/19 05:55 05:55 WBC 26.5 H RBC 3.24 L Hgb 9.0 L Hct 26.7 L MCV 82.4 MCH 27.8 MCHC 33.7 RDW 20.1 H RDW Differential 61.1 H Plt Count 368 MPV 8.6 Immature Gran % (Auto) 0.500 Neut % (Auto) 71.5 H Lymph % (Auto) 8.8 L [place] % (Auto) 16.6 H Eos % (Auto) 2.2 Baso % (Auto) 0.4 Absolute Neuts (auto) 19.0 H Absolute Lymphs (auto) 2.32 Total Counted Not Reportable Nucleated RBC % 0.8 Differential Comment SCANNED Diff Path Review May foll Polychromasia RARE Hypochromasia 3+ Macrocytosis 2+ Target Cells 3+ Absolute Retic 0.22 Sodium 139 Potassium 3.3 L Chloride 113 H Carbon Dioxide 18.0 L Anion Gap 8 BUN 8 Creatinine 0.73 Estim Creat Clear Calc 62.19 Est GFR (MDRD) Af Amer 108 Est GFR (MDRD) Non-Af 89 BUN/Creatinine Ratio 11.0 Glucose 97 Calcium 9.5 Medical Necessity - Tobacco Use Smoking Status: Former smoker Tobacco Use: Cigarettes Assessment/Plan All Active Problems (Last Updated 02/25/19 @ 14:59 by Idalia Blankenship MD) Rib fractures (Acute) RECOMMENDATIONS: 1. Await consult pain management for possible rib block 2. Continue supplemental oxygen to keep saturations greater than 90% 3. Encourage incentive spirometer 4. Increase activity as tolerated IMPRESSIONS: 1. Acute hypoxic respiratory insufficiency secondary to rib fractures Patient is reporting a chronic cough, which is unlikely to be controlled given her baseline of sarcoidosis. Could initiate patient on prednisone therapy, but this would likely slow healing of rib fractures. Patient has had issues with opiate misuse in the past, so I would recommend consulting pain management for a possible rib block. Review of the chest x-ray is more consistent with atelectasis secondary to voluntary guarding on my review. Patient is currently being treated with a lidocaine patch. Await decision by pain management. 2. Bronchiectasis secondary to sarcoidosis Patient does have a history of sarcoidosis and was followed at the [facility] previously. Patient is failed to follow-up with both the [facility] and our office in the past. Review of the CAT scan does not show any significant progression compared to previous imaging. Patient would benefit from pulmonary toileting with Acapella, but I doubt she will comply with this given her rib fractures. Patient could be treated with steroid therapy, but this would likely slow healing of rib fractures and patient is not giving any signs or symptoms of exacerbation at this time. Could consider sending a sputum culture, but high clinical suspicion patient will grow staph or Pseudomonas given her baseline colonization. Low clinical suspicion for active infection. Patient would likely not tolerate aggressive pulmonary toileting techniques. 3. Hyperchloremic non-anion gap metabolic acidosis Likely secondary to volume resuscitation with normal saline. Increase free water intake. 4. Hypertension/history of recent intestinal obstruction/moderate protein calorie malnutrition/history of noncompliance Complicates care, management, recovery and prognosis. Dietitian has been consulted. Blood pressure is adequate at this time. Code Visit Inpatient E&M: 19275 Subs Hosp L2
[2019-02-27] MEDS: Ceftriaxone 1 GM/50 ML BAG IV ×2 (09:02→21:00)
[2019-02-27] MEDS: Famotidine 20 MG Tablet PO ×2 (09:03→20:58)
[2019-02-27] MEDS: Lidocaine 5% Patch 2 PATCH TOPICAL (09:05)
[2019-02-27] MEDS: Lactated Ringers 1,000 ML 75 ML IV (09:06)
[2019-02-27 09:50] LABS: Pathologist Review Reviewed
[2019-02-27 09:52] LABS: Pathologist Review Reviewed
--- NOTE | 2019-02-27 10:25 | PN_ITS ---
Patient Problems: Active and Suspected Problems (Last Updated 02/25/19 @ 14:59 by Idalia Blankenship MD) Rib fractures (Acute) Subjective: Patient seen and examined. She still complains of pain in her right ribs from the fractures. She now tells me that she thinks she felt some months ago and is wondering if that could have caused the acute fracture. She still has a cough shortness of breath has improved. Review of systems otherwise negative. Labs and vitals reviewed. Pain management consulted for pain block. Vitals/I&O's: Vital Signs Temp Pulse Resp BP Pulse Ox 98.7 F 106 H 20 H 114/73 98 02/27/19 08:48 02/27/19 08:48 02/27/19 08:48 02/27/19 08:48 02/27/19 08:48 Oxygen Flow Rate (L/min) 3 Oxygen Delivery Method Nasal Cannula Weight: 97 lb 7.109 oz Body Mass Index (BMI) 17.8 Finger Stick Blood Glucose 156 Intake and Output for Last 24 Hours 02/25/19 02/26/19 02/27/19 23:59 23:59 23:59 Intake Total 2351 / 2351 2292 / 2292 Output Total 500 / 500 Balance 2351 / 2351 1792 / 1792 General: Alert, Oriented x3, Cooperative, Lethargic, - - very frail HEENT: Atraumatic, PERRLA, EOMI, Normocephalic Oral: Dry Mucosa Neck: Supple, No JVD, Negative Carotid Bruits Lungs: - - decreased breath sounds in all lung mer[place], has mild crackles bibasally. Cardiovascular: Regular rate, Regular Rhythm, Normal S1, Normal S2, No murmurs Abdomen: Bowel Sounds Present, Soft, Non Tender, Non-Distended, No Hepato- splenomegaly, - - ileostomy bag Extremities: No clubbing, No cyanosis, No edema, Capillary Refill Less than 3 Seconds Skin: No rashes, No breakdown Musculoskeletal: - - has moderate tenderness on palpation of right flank Lymphatic: No Cervical, Supraclavicular, or Inguinal Adenopathy Neurological: Cranial nerves II-XII grossly intact, Neuro grossly intact, Motor Exam 5/5 strength throughout Psych/Mental Status: Normal Affect, Appropriate, Alert and oriented to time, place, person, mood and affect Microbiology Past 72 Hours 02/27/19 04:00 Urine, Clean Catch Legionella Antigen - Final 02/27/19 04:00 Urine, Clean Catch Streptococcus pneumoniae Antigen (M - Final Laboratory Results 02/25/19 13:50: Diff Path Review Reviewed 02/26/19 05:20: Diff Path Review Reviewed 02/27/19 05:55: WBC 26.5 H, RBC 3.24 L, Hgb 9.0 L, Hct 26.7 L, MCV 82.4, MCH 27.8, MCHC 33.7, RDW 20.1 H, RDW Differential 61.1 H, Plt Count 368, MPV 8.6, Immature Gran % (Auto) 0.500, Neut % (Auto) 71.5 H, Lymph % (Auto) 8.8 L, [place] % (Auto) 16.6 H, Eos % (Auto) 2.2, Baso % (Auto) 0.4, Absolute Neuts (auto) 19.0 H , Absolute Lymphs (auto) 2.32, Total Counted Not Reportable, Nucleated RBC % 0.8, Differential Comment SCANNED, Diff Path Review May foll, Polychromasia RARE, Hypochromasia 3+, Macrocytosis 2+, Target Cells 3+, Absolute Retic 0.22 02/27/19 05:55: Sodium 139, Potassium 3.3 L, Chloride 113 H, Carbon Dioxide 18.0 L, Anion Gap 8, BUN 8, Creatinine 0.73, Estim Creat Clear Calc 62.19, Est GFR (MDRD) Af Amer 108, Est GFR (MDRD) Non-Af 89, BUN/Creatinine Ratio 11.0, Glucose 97, Calcium 9.5 Current Medications Acetaminophen (Tylenol) 650 mg PO Q6H PRN PRN PRN Reason: Mild Pain (1-3)/Temp > 100.7 F Last Admin: 02/27/19 06:12 Dose: 650 mg Documented by: Albuterol Sulfate (Ventolin Aerosols) 2.5 mg INHALATION Q2H PRN PRN PRN Reason: Shortness of breath, wheezing Albuterol/Ipratropium (Duoneb) 3 ml INHALATION Q6H.RT DWAINE Last Admin: 02/27/19 07:22 Dose: 3 ml Documented by: Famotidine (Pepcid) 20 mg PO BID DWAINE Last Admin: 02/27/19 09:03 Dose: 20 mg Documented by: Lactated Ringer's () 1,000 mls @ 75 mls/hr IV .[id number] [facility] Last Admin: 02/27/19 09:06 Dose: 75 mls/hr Documented by: Azithromycin 500 mg/ Dextrose 255 mls @ 250 mls/hr IV Q24 [facility] Last Admin: 02/27/19 09:06 Dose: 250 mls/hr Documented by: Ceftriaxone Sodium (Rocephin) 1 gm in 50 mls @ 100 mls/hr IV Q12 [facility] Last Admin: 02/27/19 09:02 Dose: 100 mls/hr Documented by: Lidocaine (Lidoderm Patch) 2 patch TOPICAL DAILY [facility]; Protocol Last Admin: 02/27/19 09:05 Dose: 2 patch Documented by: Magnesium Hydroxide (Milk Of Magnesia) 30 ml PO DAILY PRN PRN PRN Reason: Constipation Morphine Sulfate () 1 - 2 mg IV Q4H PRN PRN PRN Reason: Severe pain (7-10/10) Last Admin: 02/27/19 08:58 Dose: 2 mg Documented by: Nutritional Formula (Lactose Free) (Ensure Enlive) 120 ml PO 4X/DAY [facility] Last Admin: 02/27/19 09:00 Dose: 120 ml Documented by: Ondansetron HCl (Zofran) 4 mg IV Q8H PRN PRN PRN Reason: NAUSEA/VOMITING Oxycodone HCl (Oxyir) 5 mg PO Q4H PRN PRN PRN Reason: Moderate Pain (4-6/10) Last Admin: 02/27/19 06:12 Dose: 5 mg Documented by: Senna (Senokot) 1 tablet PO BID [facility] Last Admin: 02/27/19 09:06 Dose: Not Given Documented by: Sodium Chloride () 10 - 40 ml IV UD PRN PRN Reason: SALINE FLUSH Last Admin: 02/26/19 04:42 Dose: 10 ml Documented by: Medical Necessity - Tobacco Use Smoking Status: Former smoker Tobacco Use: Cigarettes Assessment/Plan All Active Problems (Last Updated 02/25/19 @ 14:59 by Idalia Blankenship MD) Rib fractures (Acute) 1. 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 Rib fractures * Etiology of rib fractures is unclear. She now says she fell a few months ago. * Patient states she thinks is due to excessive coughing from sarcoidosis. * Management as under 1. * 3. Sepsis due to community acquired Pneumonia * still tachypneic and tachycardic * still has no fever * on IV ceftriaxone and azithromycin * urine negative for strep and legionella antigen. * sputum culture pending. blood culture pending * consider stopping antibiotics tomorrow if she remains stable. per pulmo, there is low clinical suspicion for active infection. * 4. Sarcoidosis: * pulmonology on board; had been lost to follow up at [facility] * per pulmonology, patient will not tolerate aggressive pulmonary toileting due to baseline weakness * on breathing treatments * on leflunomide and bactrim for pneumonia prophylaxis * on Promethazine cough syrup and guafenesin * 5. Non-anion gap metabolic acidosis. * likely due to hyperchloremic non anion gap metabolic acidosis * bicarb is up to 18 today * IVF stopped. anion gap is 8 today * 6. Hypertension: On losartan and metoprolol as well as HCTZ 7. History of recent intestinal obstruction status post ileostomy * Had surgery in January at [facility] where she was transferred from [facility] after she presented with abdominal pain. * Ileostomy bag in place. Consult wound care.\ * Records pending from [facility] 8. Chronic hypoxic respiratory failure due to sarcoidosis: On 3 L of oxygen which is her baseline. 9. Moderate protein-calorie malnutrtion: * patient very emaciated; BMI is ~ 17. Consult nutrition * DVT prophylaxis: heparin Code Visit Inpatient E&M: 60021 Subs Hosp L2
--- NOTE | 2019-02-27 10:40 | NURSING ---
In to reassess the ostomy appliance. according to nursing, patient had not closed the lock n' roll closure last night so the appliance leaked last pm. appliance is intact at this time. appliance emptied for 150cc's liquid stool. will continue to monitor. pt denies needs at this time.
--- NOTE | 2019-02-27 12:20 | CASEMGMT ---
LOREN MCCORMACK assessment: Face to Face with patient for initial transition planning/care coordination assessment. RN KSENIA introduced self and role at [facility], pt voices understanding and consents to assessment at this time. Pt is sitting up in bed in no distress at this time. Pt is A/Ox4 at this time but is forgetful with physician names and HHC/DME company. Care providers, pharmacy, and demographics verified at this time. PCP: John Sears Specialists: Sarcoidosis specialist and rn nursery at [facility] but pt cannot remember names Preferred Pharmacy: [facility] Insurance: [employer] [facility] Prescription Benefit: [facility] Living Will/HPOA: Pt states she does not have LW/HPOA and declines info at this time. LNOK: Chava Ray, Living Arrangements: Pt states that she lives with in 1 story home with 5-6 steps into home and states no concerns at home at this time. Pt states is normally independent with ADL's. Transportation: Pt states drives and states no transportation concerns at this time. DME/HHC: Pt states has grab bars in shower and states is on 3liters home oxygen prn and at bedtime but cannot remember name of DME company at this time. Pt states that she is in need of a shower chair also and would like is sent to [facility] once signed by Dr. Salas. Pt states is also current with a HHC company for [facility] but cannot remember name of company. Call to Dr. John Sears's office and per RN, pt is current with [facility] at this time but she is not sure who pt's home oxygen is set up through at this time. Call to [facility] at this time and they state that she is currently active for [facility]. Resumption of care order placed at this time. Pt states no concerns with going home at time of discharge. Pt states is disabled. Pt states does not smoke or drink ETOH. Pt states no further concerns/needs at this time. CM to follow for any further discharge planning/needs. Advised pt to ask for CM if any further questions/concerns/needs arise, voices understanding. Pt Goal: Home w/ resump HHC Plan: Home w/ resump [facility]HC [place] LOREN MCCORMACK
--- NOTE | 2019-02-27 16:41 | CHAPLAIN ---
Type of Pastoral Visit _x__ Initial Visit ___ Follow-up Visit ___ On-call Visit ___ General Patient Visit ___ Spiritual Assessment ___ Family Conference ___ Bereavement ___ Rapid Response ___ Code Blue ___ Other (describe below) Pastoral Care Referral From _x__ Patient ___ Family ___ Nurse ___ Physician ___ Manager Sales And Marketing ___ Civil Drafter ___ Other (describe below) Sacrament/Intervention _x__ Active listening ___ Anointing ___ Mandaen ___ Bereavement ___ Communion ___ Diya exploration ___ ___ Life review _x__ Prayer ___ Reconciliation ___ Sacrament of Sick _x__ Supportive presence ___ Wedding ___ Other (describe below) Pastoral Comments
[2019-02-27] MEDS: Benzonatate 100 MG Capsule PO (17:30)
[2019-02-27] MEDS: 0.9% NaCl Peripheral Flush Adult/Peds IV (17:31)
[2019-02-27] MEDS: Gabapentin 600 MG Tablet 300 MG PO (17:40)
[2019-02-27] MEDS: Ondansetron 4 MG/2 ML Vial IV (17:40)
[2019-02-27] MEDS: Magnesium Oxide 400 MG Tablet PO (20:58)
[2019-02-27] MEDS: Senna Tablet 1 TABLET PO (20:58)
[2019-02-27] MEDS: levETIRAcetam 500 MG Tablet PO (20:58)
[2019-02-27] MEDS: Mirtazapine 30 MG Tablet PO (20:58)
[2019-02-27] MEDS: Docusate Sodium 100 MG Capsule PO (20:58)
[2019-02-27] MEDS: guaiFENesin 600 MG Tablet PO (20:59)
[2019-02-27] MEDS: Losartan Potassium 50 MG Tablet PO (20:59)
[2019-02-27] MEDS: Atorvastatin Calcium 10 MG Tablet PO (20:59)
[2019-02-27] MEDS: Sucralfate 1 GM Tablet PO (20:59)
[2019-02-27] MEDS: Gabapentin 600 MG Tablet PO (21:00)
[2019-02-28] VITALS (23 sets, daily range): BP systolic 113–155; BP diastolic 85–108; PULSE 100–118; RESP 12–36; TEMP 36.4–36.9; O2SAT 93–100
[2019-02-28] MEDS: Lactated Ringers 1,000 ML 75 ML IV (05:11)
[2019-02-28] MEDS: Benzonatate 100 MG Capsule PO ×3 (05:12→23:05)
[2019-02-28] MEDS: Acetaminophen 325 MG Tablet 650 MG PO (05:13)
--- NOTE | 2019-02-28 05:24 | NURSING ---
pt requested pain medication. when this rn attempted to provide her w/oxyir and tylenol she was unable to stay awake to discuss the medications being given to her. medications pain medications not given at this time d/t lethargy.
[2019-02-28 06:23] LABS: Anion Gap 8 (5-15); BUN 9 mg/dL (7-18); BUN/Creat Ratio 9.3 RATIO (10-20); Chloride 113 mmol/L (98-107); Creatinine, Serum 0.96 mg/dL (0.55-1.02); EST Glomerular Filtration Rate 64 mL/min (>60); Est Glom Filt Rate - Afr Amer 78 mL/min (>60); Estimated Creatinine Clearance 47.29 ml/min; Glucose 98 mg/dL (74-106); Potassium 3.9 mmol/L (3.5-5.1); Sodium Level 139 mmol/L (136-145)
[2019-02-28 06:29] LABS: Absolute Lymphocyte Count 2.98 X10^3/ul (0.83-4.51); Absolute Neutrophil Count 15.1 X10^3/uL (2.0-7.7); Basophil# 0.13 X10^3/uL; Basophil% 0.6 % (0-1); Eosinophil# 1.47 X10^3/uL; Eosinophils% 6.4 % (0-5); Hematocrit 26.6 % (37-47); Hemoglobin 8.9 g/dl (12.0-15.0); Lymphocyte # 2.98 X10^3/ul (4.0); Lymphocyte % 12.9 % (19-41); Mean Corp Hgb Conc 33.5 g/gl (32-36); Mean Corpuscular Hgb 27.4 pg (27.0-32.0); Mean Corpuscular Volume 81.8 fL (81-99); Mean Platelet Vol. 8.9 fl (6.2-12.0); Monocyte# 3.29 X10^3/uL; Monocyte% 14.2 % (0-10); Neutrophil # 15.12 X10^3/uL (2.7-7.7); Neutrophil % 65.4 % (47-70); Platelet Count 393 K/mm3 (150-450); RBC Distribution Width CV 20.3 % (11.6-14.6); RBC Distribution Width SD 60.5 fl (35.1-43.9); Red Blood Count 3.25 M/mm3 (4.2-5.4); White Blood Count 23.1 K/mm3 (4.4-11.0)
[2019-02-28 06:31] LABS: Differential Indicated SCAN CRITERIA MET; POSITIVE COUNT YES; POSITIVE DIFFERENTIAL YES; POSITIVE MORPHOLOGY YES
[2019-02-28] MEDS: Ipratropium/Albuterol Sulfate 3 ML AMPUL.NEB INHALATION ×3 (06:52→20:28)
[2019-02-28 06:59] LABS: Anisocytosis 1+; Hypochromasia 1+; Polychromasia RARE; Schistocytes RARE; Target Cells 2+
--- NOTE | 2019-02-28 09:25 | PCM.PN.PUL ---
Patient Problems: Active and Suspected Problems (Last Updated 02/25/19 @ 14:59 by Idalia Blankenship MD) Rib fractures (Acute) Subjective: Patient is done well with pain control. Patient has been able to be weaned to room air. Patient denies any hemoptysis, fever, chills, nausea or vomiting at this time. Patient does believe the pain medications have significantly helped her situation. - Physical Exam General: Oriented x3, Cooperative, No apparent distress, - - RASS -1. HEENT: Atraumatic, PERRLA, EOMI, Normocephalic, - - Slight scleral injection without icterus Oral: Moist Mucosa, No Gingival or Mucosal Lesions/ Ulcerations Neck: Supple, No JVD, No Nodes, Trachea Midline Lungs: No rhonchi, No wheeze, Diminished, Rales Cardiovascular: Regular rate, Regular Rhythm, Normal S1, Normal S2, No murmurs, No rub noted, No Gallop Abdomen: Bowel Sounds Present, Soft, Non Tender, Non-Distended Extremities: No cyanosis, No edema, Capillary Refill Less than 3 Seconds, Clubbing Skin: No rashes, No breakdown Musculoskeletal: No Tenderness to Palpation of Joints or Extremities Lymphatic: No Cervical, Supraclavicular, or Inguinal Adenopathy Neurological: Cranial nerves II-XII grossly intact, Neuro grossly intact, Motor Exam 5/5 strength throughout Psych/Mental Status: Alert and oriented to time, place, person, mood and affect Vital Signs Temp Pulse Resp BP Pulse Ox 36.8 C 106 H 20 H 123/89 H 95 02/28/19 03:32 02/28/19 07:37 02/28/19 07:05 02/28/19 03:32 02/28/19 07:38 Oxygen Flow Rate (L/min) 3 Oxygen Delivery Method Nasal Cannula Weight: 44.2 kg Body Mass Index (BMI) 17.8 Finger Stick Blood Glucose 156 Intake and Output for Last 24 Hours 02/26/19 02/27/19 02/28/19 23:59 23:59 23:59 Intake Total 2351 / 2351 3517 / 3874 1098 / 1098 Output Total 650 / 650 Balance 2351 / 2351 2867 / 3224 1098 / 1098 Microbiology Past 72 Hours 02/27/19 13:25 Gram Stain - Final Sputum, Expectorated/Coughed 02/27/19 04:00 Legionella Antigen - Final Urine, Clean Catch Streptococcus pneumoniae Antigen (M - Final Laboratory Tests Past 24 Hrs 02/25/19 02/26/19 02/28/19 13:50 05:20 05:45 WBC 23.1 H RBC 3.25 L Hgb 8.9 L Hct 26.6 L MCV 81.8 MCH 27.4 MCHC 33.5 RDW 20.3 H RDW Differential 60.5 H Plt Count 393 MPV 8.9 Immature Gran % (Auto) 0.500 Neut % (Auto) 65.4 Lymph % (Auto) 12.9 L [place] % (Auto) 14.2 H Eos % (Auto) 6.4 H Baso % (Auto) 0.6 Absolute Neuts (auto) 15.1 H Absolute Lymphs (auto) 2.98 Total Counted Not Reportable Diff Path Review Reviewed Reviewed Polychromasia RARE Hypochromasia 1+ Anisocytosis 1+ Target Cells 2+ Schistocytes RARE Sodium Potassium Chloride Carbon Dioxide Anion Gap BUN Creatinine Estim Creat Clear Calc Est GFR (MDRD) Af Amer Est GFR (MDRD) Non-Af BUN/Creatinine Ratio Glucose Calcium 02/28/19 05:45 WBC RBC Hgb Hct MCV MCH MCHC RDW RDW Differential Plt Count MPV Immature Gran % (Auto) Neut % (Auto) Lymph % (Auto) [place] % (Auto) Eos % (Auto) Baso % (Auto) Absolute Neuts (auto) Absolute Lymphs (auto) Total Counted Diff Path Review Polychromasia Hypochromasia Anisocytosis Target Cells Schistocytes Sodium 139 Potassium 3.9 Chloride 113 H Carbon Dioxide 18.0 L Anion Gap 8 BUN 9 Creatinine 0.96 Estim Creat Clear Calc 47.29 Est GFR (MDRD) Af Amer 78 Est GFR (MDRD) Non-Af 64 BUN/Creatinine Ratio 9.3 L Glucose 98 Calcium 9.0 Medical Necessity - Tobacco Use Smoking Status: Former smoker Tobacco Use: Cigarettes Assessment/Plan All Active Problems (Last Updated 02/25/19 @ 14:59 by Idalia Blankenship MD) Rib fractures (Acute) RECOMMENDATIONS: 1. Await rib block 2. Walking oximetry prior to discharge 3. Encourage incentive spirometer 4. Increase activity as tolerated IMPRESSIONS: 1. Acute hypoxic respiratory insufficiency secondary to rib fractures Patient is reporting a chronic cough, which is unlikely to be controlled given her baseline of sarcoidosis. Patient has responded well to aggressive pain control. Unfortunately, patient also appears to be somewhat sedated secondary to narcotics. Await response of rib block. Patient can likely be discharged after walking oximetry if rib block is successful. Patient can follow-up with her primary structural engineering drafting officer at [facility]. 2. Bronchiectasis secondary to sarcoidosis Patient does have a history of sarcoidosis and was followed at the [facility] previously. Patient is failed to follow-up with both the [facility] and our office in the past. Review of the CAT scan does not show any significant progression compared to previous imaging. Patient would benefit from pulmonary toileting with Acapella, but I doubt she will comply with this given her rib fractures. Patient could be treated with steroid therapy, but this would likely slow healing of rib fractures and patient is not giving any signs or symptoms of exacerbation at this time. Could consider sending a sputum culture, but high clinical suspicion patient will grow staph or Pseudomonas given her baseline colonization. Low clinical suspicion for active infection. Patient would likely not tolerate aggressive pulmonary toileting techniques at this time. 3. Hyperchloremic non-anion gap metabolic acidosis Likely secondary to volume resuscitation with normal saline. Increase free water intake. Hypokalemia has been resolved. 4. Hypertension/history of recent intestinal obstruction/moderate protein calorie malnutrition/history of noncompliance Complicates care, management, recovery and prognosis. Dietitian has been consulted. Blood pressure is adequate at this time. Code Visit Inpatient E&M: 82974 Subs Hosp L2
--- NOTE | 2019-02-28 09:33 | CASEMGMT ---
Shower chair script faxed to [facility] at this time per pt request. Original to chart at this time for pt at discharge with a note in regards to same. Per Dr. Salas, pt is scheduled for epidural block at 1430 today and most likely will be discharged 03/01. Lashawn PIMENTEL CM
--- NOTE | 2019-02-28 09:55 | PCM.PN.HOSP ---
Patient Problems: Active and Suspected Problems (Last Updated 02/25/19 @ 14:59 by Idalia Blankenship MD) Rib fractures (Acute) Subjective: Patient seen and examined. She has no complaints this morning. Pain is better controlled. Shortness of breath has improved. Review of signs otherwise negative. She is getting a pain block by pain management later this afternoon. Labs and vitals reviewed. Vitals/I&O's: Vital Signs Temp Pulse Resp BP Pulse Ox 98.5 F 102 H 32 H 135/85 H 98 02/28/19 09:30 02/28/19 09:30 02/28/19 09:30 02/28/19 09:30 02/28/19 09:30 Oxygen Flow Rate (L/min) 3 Oxygen Delivery Method Room Air Weight: 97 lb 7.109 oz Body Mass Index (BMI) 17.8 Finger Stick Blood Glucose 156 Intake and Output for Last 24 Hours 02/26/19 02/27/19 02/28/19 23:59 23:59 23:59 Intake Total 2351 / 2351 3517 / 3874 1098 / 1098 Output Total 650 / 650 Balance 2351 / 2351 2867 / 3224 1098 / 1098 General: Alert, Oriented x3, Cooperative, HEENT: Atraumatic, PERRLA, EOMI, Normocephalic Oral: Dry Mucosa Neck: Supple, No JVD, Negative Carotid Bruits Lungs: - - decreased breath sounds in all lung [place], on her baseline 3L of oxygen Cardiovascular: Regular rate, Regular Rhythm, Normal S1, Normal S2, No murmurs Abdomen: Bowel Sounds Present, Soft, Non Tender, Non-Distended, No Hepato-splenomegaly, - - ileostomy bag Extremities: No clubbing, No cyanosis, No edema, Capillary Refill Less than 3 Seconds Skin: No rashes, No breakdown Musculoskeletal: - - minimal tenderness on palpation of right flank Lymphatic: No Cervical, Supraclavicular, or Inguinal Adenopathy Neurological: Cranial nerves II-XII grossly intact, Neuro grossly intact, Motor Exam 5/5 strength throughout Psych/Mental Status: Normal Affect, Appropriate, Alert and oriented to time, place, person, mood and affect Microbiology Past 72 Hours 02/27/19 13:25 Sputum, Expectorated/Coughed Gram Stain - Final 02/27/19 04:00 Urine, Clean Catch Legionella Antigen - Final 02/27/19 04:00 Urine, Clean Catch Streptococcus pneumoniae Antigen (M - Final Laboratory Results 02/28/19 05:45: WBC 23.1 H, RBC 3.25 L, Hgb 8.9 L, Hct 26.6 L, MCV 81.8, MCH 27.4, MCHC 33.5, RDW 20.3 H, RDW Differential 60.5 H, Plt Count 393, MPV 8.9, Immature Gran % (Auto) 0.500, Neut % (Auto) 65.4, Lymph % (Auto) 12.9 L, [place] % (Auto) 14.2 H, Eos % (Auto) 6.4 H, Baso % (Auto) 0.6, Absolute Neuts (auto) 15.1 H, Absolute Lymphs (auto) 2.98, Total Counted Not Reportable, Polychromasia RARE, Hypochromasia 1+, Anisocytosis 1+, Target Cells 2+, Schistocytes RARE 02/28/19 05:45: Sodium 139, Potassium 3.9, Chloride 113 H, Carbon Dioxide 18.0 L, Anion Gap 8, BUN 9, Creatinine 0.96, Estim Creat Clear Calc 47.29, Est GFR (MDRD) Af Amer 78, Est GFR (MDRD) Non-Af 64, BUN/Creatinine Ratio 9.3 L, Glucose 98, Calcium 9.0 Diagnostic Data Chest X-Ray 02/26/19 02:17 IMPRESSION: Appearance suggestive of bilateral pneumonia superimposed on chronic underlying lung disease. Electronically Signed: Adam Burnett MD at 3:17 EDT , Service support , Current Medications Acetaminophen (Tylenol) 650 mg PO Q6H PRN PRN PRN Reason: Mild Pain (1-3)/Temp > 100.7 F Last Admin: 02/28/19 05:13 Dose: 650 mg Documented by: Albuterol Sulfate (Ventolin Aerosols) 2.5 mg INHALATION Q2H PRN PRN PRN Reason: Shortness of breath, wheezing Albuterol/Ipratropium (Duoneb) 3 ml INHALATION Q6H.RT DWAINE Last Admin: 02/28/19 06:52 Dose: 3 ml Documented by: Atorvastatin Calcium (Lipitor) 10 mg PO QHS [facility] Last Admin: 02/27/19 20:59 Dose: 10 mg Documented by: Benzonatate (Tessalon Perle) 100 mg PO TID [facility] Last Admin: 02/28/19 05:12 Dose: 100 mg Documented by: Clonidine (Catapres) 0.2 mg PO QHS PRN PRN PRN Reason: hot flash prevention Docusate Sodium (Colace) 100 mg PO BID [facility] Last Admin: 02/27/19 20:58 Dose: 100 mg Documented by: Duloxetine HCl (Cymbalta) 60 mg PO DAILY [facility] Famotidine (Pepcid) 20 mg PO BID [facility] Last Admin: 02/27/19 20:58 Dose: 20 mg Documented by: Fluticasone Propionate (Flonase Nasal [place]) 2 spray NASAL DAILY [facility] Folic Acid (Folic Acid) 1 mg PO DAILY@0800 [facility] Furosemide (Lasix) 20 mg PO DAILY [facility] Last Admin: 02/27/19 17:40 Dose: 300 mg Documented by: Gabapentin (Neurontin) 600 mg PO QHS [facility] Last Admin: 02/27/19 21:00 Dose: 600 mg Documented by: Guaifenesin (Mucinex) 600 mg PO BID [facility] Last Admin: 02/27/19 20:59 Dose: 600 mg Documented by: Lactated Ringer's () 1,000 mls @ 75 mls/hr IV .[id number] [facility] Last Admin: 02/28/19 05:11 Dose: 75 mls/hr Documented by: Azithromycin 500 mg/ Dextrose 255 mls @ 250 mls/hr IV Q24 [facility] Last Admin: 02/27/19 09:06 Dose: 250 mls/hr Documented by: Ceftriaxone Sodium (Rocephin) 1 gm in 50 mls @ 100 mls/hr IV Q12 [facility] Last Admin: 02/27/19 21:00 Dose: 100 mls/hr Documented by: Ipratropium [place] (Atrovent) 0.5 mg INHALATION Q6H PRN PRN PRN Reason: SHORTNESS OF BREATH Leflunomide (Leflunomide) 20 mg PO DAILY [facility] Levetiracetam (Keppra Tablet) 500 mg PO BID [facility] Last Admin: 02/27/19 20:58 Dose: 500 mg Documented by: Lidocaine (Lidoderm Patch) 2 patch TOPICAL DAILY [facility]; Protocol Last Admin: 02/27/19 09:05 Dose: 2 patch Documented by: Loperamide HCl (Imodium) 2 mg PO PRN PRN PRN Reason: Diarrhea Losartan Potassium (Cozaar) 50 mg PO BID [facility] Last Admin: 02/27/19 20:59 Dose: 50 mg Documented by: Magnesium Hydroxide (Milk Of Magnesia) 30 ml PO DAILY PRN PRN PRN Reason: Constipation Magnesium Oxide (Mag-Ox 400) 400 mg PO BID [facility] Last Admin: 02/27/19 20:58 Dose: 400 mg Documented by: Mirtazapine (Remeron) 30 mg PO QHS [facility] Last Admin: 02/27/19 20:58 Dose: 30 mg Documented by: Nutritional Formula (Lactose Free) (Ensure Enlive) 120 ml PO 4X/DAY [facility] Last Admin: 02/27/19 20:59 Dose: Not Given Documented by: Ondansetron HCl (Zofran) 4 mg IV Q8H PRN PRN PRN Reason: NAUSEA/VOMITING Last Admin: 02/27/19 17:40 Dose: 4 mg Documented by: Oxycodone HCl (Oxyir) 5 mg PO Q4H PRN PRN PRN Reason: Moderate Pain (4-6/10) Last Admin: 02/27/19 20:28 Dose: 5 mg Documented by: Senna (Senokot) 1 tablet PO BID [facility] Last Admin: 02/27/19 20:58 Dose: 1 tablet Documented by: Sodium Chloride () 10 - 40 ml IV UD PRN PRN Reason: SALINE FLUSH Last Admin: 02/27/19 17:31 Dose: 10 ml Documented by: Sucralfate (Carafate) 1 gm PO ACHS [facility] Last Admin: 02/27/19 20:59 Dose: 1 gm Documented by: Tizanidine HCl (Zanaflex) 2 mg PO BID PRN PRN PRN Reason: MUSCLE SPASMS Trimethoprim/Sulfamethoxazole (Bactrim Ds) 1 tablet PO MoWeFr@0800 [facility] Medical Necessity - Tobacco Use Smoking Status: Former smoker Tobacco Use: Cigarettes Assessment/Plan All Active Problems (Last Updated 02/25/19 @ 14:59 by Idalia Blankenship MD) Rib fractures (Acute) 1. 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 2. Rib fractures Etiology of rib fractures is unclear. She now says she fell a few months ago. Patient states she thinks is due to excessive coughing from sarcoidosis. Management as under 1. 3. Sepsis due to community acquired Pneumonia still tachypneic and tachycardic still has no fever on IV ceftriaxone and azithromycin urine negative for strep and legionella antigen. sputum culture pending. blood culture pending will dc antibiotics today 4. Sarcoidosis: pulmonology on board; had been lost to follow up at [facility] per pulmonology, patient will not tolerate aggressive pulmonary toileting due to baseline weakness on breathing treatments on leflunomide and bactrim for pneumonia prophylaxis on Promethazine cough syrup and guafenesin 5. Non-anion gap metabolic acidosis. likely due to hyperchloremic non anion gap metabolic acidosis bicarb is still 18 today 6. Hypertension: On losartan and metoprolol as well as HCTZ 7. History of recent intestinal obstruction status post ileostomy Ileostomy bag in place. Consult wound care. 8. Chronic hypoxic respiratory failure due to sarcoidosis: On 3 L of oxygen which is her baseline. 9. Severe protein-calorie malnutrtion: patient very emaciated; BMI is ~ 17. Nutrition on board DVT prophylaxis: heparin Code Visit Inpatient E&M: 40438 Subs Hosp L2
[2019-02-28] MEDS: Sucralfate 1 GM Tablet PO ×3 (09:59→23:05)
[2019-02-28] MEDS: Smz/Tmp Ds Tablet 1 TABLET PO (10:01)
[2019-02-28] MEDS: Folic Acid 1 MG Tablet PO (10:01)
[2019-02-28] MEDS: Docusate Sodium 100 MG Capsule PO ×2 (10:02→23:05)
[2019-02-28] MEDS: Gabapentin 600 MG Tablet 300 MG PO ×2 (10:02→18:09)
[2019-02-28] MEDS: Losartan Potassium 50 MG Tablet PO ×2 (10:03→23:05)
[2019-02-28] MEDS: levETIRAcetam 500 MG Tablet PO ×2 (10:03→23:05)
[2019-02-28] MEDS: Fluticasone 0.05% 1 SPRAY NASAL.SRY 2 SPRAY NASAL (10:03)
[2019-02-28] MEDS: DULoxetine Hcl 60 MG Capsule PO (10:03)
[2019-02-28] MEDS: Furosemide 20 MG Tablet PO (10:04)
[2019-02-28] MEDS: Leflunomide 10 MG TABLET 20 MG PO (10:04)
[2019-02-28] MEDS: Lidocaine 5% Patch 2 PATCH TOPICAL (10:04)
[2019-02-28] MEDS: Magnesium Oxide 400 MG Tablet PO ×2 (10:05→23:05)
[2019-02-28] MEDS: Famotidine 20 MG Tablet PO ×2 (10:05→23:05)
[2019-02-28] MEDS: Senna Tablet 1 TABLET PO ×2 (10:05→23:05)
[2019-02-28] MEDS: guaiFENesin 600 MG Tablet PO ×2 (10:05→23:05)
[2019-02-28] MEDS: Ceftriaxone 1 GM/50 ML BAG IV (10:12)
--- NOTE | 2019-02-28 12:26 | NURSING ---
Ileostomy appliance remains intact. was just changed yesterday. appliance emptied for approx 200 cc's liquid green stool. assisted patient to [facility] to void and back to bed. bed exit back on. pt tolerated well.
[2019-02-28] MEDS: oxyCODONE 5 MG Tablet PO ×3 (12:54→23:04)
--- NOTE | 2019-02-28 13:11 | NURSING ---
charge coordinator nurse to attempt IV restart due to patient being a difficult IV start.
[2019-02-28 13:21] LABS: Pathologist Review Reviewed
--- NOTE | 2019-02-28 14:36 | NURSING ---
Report called to Jasmyne in [facility].
--- NOTE | 2019-02-28 15:35 | RAD_ITS ---
STUDY: X-RAY - THORACIC SPINE REASON FOR EXAM: Female, 53 years old. Epidural block TECHNIQUE: 2 view(s) of the thoracic spine were obtained. COMPARISON: None. FINDINGS: Intraoperative images demonstrate needle marker at level of epidural block at the T6-7 level. RAD/Thoracic Spine 2 Views IMPRESSION: Intraoperative findings as described. Electronically Signed: Hossein Moe MD at 22:21 EDT Tel , Service support ,
[2019-02-28] MEDS: Triamcinolone Acetonide 40 MG/ML Vial (16:10)
--- NOTE | 2019-02-28 16:59 | OP.PCM_ITS ---
Problem List (1) Acute right-sided thoracic back pain Status: Acute (2) Acute right-sided thoracic back pain Status: Acute (3) Radicular pain of thoracic region Status: Acute (4) Radicular pain of thoracic region Status: Acute (5) Chronic pain Status: Chronic Qualifiers: Chronic pain type: chronic pain syndrome Report of Operation Date of Procedure: 02/28/19 Pre-Operative Diagnosis: Severe thoracic spine pain, severe hip pain, thoracic radiculopathy Post-Operative Diagnosis: Same Surgery/Procedure Performed:: Right thoracic epidural steroid injection under fluoroscopy to be guidance at the level of the T6-7 Description of Surgical Findings:: Under sterile conditions. Patient placed in the prone position, pressure points were padded, patient was ready from the nursing and the anesthesia team. After identification of the side and the target area for the block under guided fluoroscopy, the entry site was marked with marking pen. I used Betadine for sterilization of the skin, sterile draping were applied. Using 25-gauge needle to infiltrate the skin with local anesthesia using preservative-free lidocaine 0.5% injected 2.5 mL at site of entry. Using guided fluoroscopy, accessed the the posterior epidural space using 18- gauge Touhy needles under midline approach access was oblique approach, to the thoracic epidural posterior space at T6-7, accessed the site was assisted with lateral fluoroscopy, followed by using [id number] technique using preservative-free normal saline, negative aspiration of CSF and blood. Injected contrast solution [2.5] mL under live fluoroscopy which showed good spread of the contrast to the posterior epidural space and to the targeted area of the injection at[thoracic T6-7]. Injected [5] mL of mixture of preservative- free lidocaine and Kenalog [80] mg for the procedure which showed appropriate spread in the epidural space. [place] was removed, pressure dressing were applied. Patient tolerated the procedure well and was taken to the recovery. Type of Anesthesia:: Local MAC
[2019-02-28] MEDS: 0.9% NaCl Peripheral Flush Adult/Peds IV (18:04)
[2019-02-28] MEDS: Atorvastatin Calcium 10 MG Tablet PO (23:05)
[2019-02-28] MEDS: Mirtazapine 30 MG Tablet PO (23:05)
[2019-02-28] MEDS: Gabapentin 600 MG Tablet PO (23:05)
[2019-03-01] VITALS (7 sets, daily range): BP systolic 141–144; BP diastolic 86–98; PULSE 93–109; RESP 16–18; TEMP 36.4–36.7; O2SAT 97–100
[2019-03-01] MEDS: Ipratropium/Albuterol Sulfate 3 ML AMPUL.NEB INHALATION ×2 (01:15→06:44)
[2019-03-01] MEDS: Lactated Ringers 1,000 ML 75 ML IV (02:26)
[2019-03-01] MEDS: oxyCODONE 5 MG Tablet PO ×3 (04:31→13:05)
[2019-03-01] MEDS: Benzonatate 100 MG Capsule PO ×2 (06:18→13:06)
[2019-03-01] MEDS: Sucralfate 1 GM Tablet PO ×2 (06:18→11:38)
[2019-03-01 06:29] LABS: Hematocrit 24.4 % (37-47); Hemoglobin 8.3 g/dl (12.0-15.0); Mean Corpuscular Hgb 27.6 pg (27.0-32.0); Mean Corpuscular Volume 81.1 fL (81-99); Mean Platelet Vol. 8.6 fl (6.2-12.0); Platelet Count 480 K/mm3 (150-450); RBC Distribution Width CV 19.6 % (11.6-14.6); Red Blood Count 3.01 M/mm3 (4.2-5.4); White Blood Count 15.7 K/mm3 (4.4-11.0)
[2019-03-01 06:30] LABS: Absolute Lymphocyte Count 1.18 X10^3/ul (0.83-4.51); Absolute Neutrophil Count 13.5 X10^3/uL (2.0-7.7); Absolute Nucleated RBC Count 0.06 10^3/uL (0-5); Basophil# 0.03 X10^3/uL; Basophil% 0.2 % (0-1); Eosinophil# 0.01 X10^3/uL; Eosinophils% 0.1 % (0-5); Lymphocyte # 1.18 X10^3/ul (4.0); Lymphocyte % 7.5 % (19-41); Monocyte# 0.87 X10^3/uL; Monocyte% 5.6 % (0-10); NRBC Flagged by Analyzer 0.4 % (0-5); Neutrophil # 13.47 X10^3/uL (2.7-7.7); POSITIVE COUNT NO; POSITIVE DIFFERENTIAL NO; POSITIVE MORPHOLOGY NO
[2019-03-01 06:34] LABS: Anion Gap 7 (5-15); BUN 11 mg/dL (7-18); BUN/Creat Ratio 13.4 RATIO (10-20); Calcium,Total 9.3 mg/dL (8.5-10.1); Chloride 110 mmol/L (98-107); Creatinine, Serum 0.82 mg/dL (0.55-1.02); EST Glomerular Filtration Rate 77 mL/min (>60); Est Glom Filt Rate - Afr Amer 93 mL/min (>60); Estimated Creatinine Clearance 55.36 ml/min; Glucose 165 mg/dL (74-106); Potassium 3.9 mmol/L (3.5-5.1); Sodium Level 137 mmol/L (136-145)
--- NOTE | 2019-03-01 07:43 | PCM.PN.PUL ---
Patient Problems: Active and Suspected Problems (Last Updated 02/25/19 @ 14:59 by Idalia Blankenship MD) Rib fractures (Acute) Acute right-sided thoracic back pain (Acute) Acute right-sided thoracic back pain (Acute) Radicular pain of thoracic region (Acute) Radicular pain of thoracic region (Acute) Subjective: Patient subjectively improved today compared to yesterday. Patient does have significant improvement following rib block. Patient is denying any purulent sputum or increased cough at this time. - Physical Exam General: Alert, Oriented x3, Cooperative, No apparent distress, - - Appears older than stated age. No conversational dyspnea. HEENT: Atraumatic, PERRLA, EOMI, Normocephalic, - - No scleral icterus or injection noted. Oral: Moist Mucosa, No Gingival or Mucosal Lesions/ Ulcerations Neck: Supple, No JVD, No Nodes, Trachea Midline Lungs: No rhonchi, No wheeze, Diminished, Rales Cardiovascular: Regular rate, Regular Rhythm, Normal S1, Normal S2, No murmurs, No rub noted, No Gallop Abdomen: Bowel Sounds Present, Soft, Non Tender, Non-Distended Extremities: No cyanosis, No edema, Capillary Refill Less than 3 Seconds, Clubbing Skin: No rashes, No breakdown Musculoskeletal: No Tenderness to Palpation of Joints or Extremities Lymphatic: No Cervical, Supraclavicular, or Inguinal Adenopathy Neurological: Cranial nerves II-XII grossly intact, Neuro grossly intact, Motor Exam 5/5 strength throughout Psych/Mental Status: Alert and oriented to time, place, person, mood and affect Vital Signs Temp Pulse Resp BP Pulse Ox 36.4 C L 100 18 141/98 H 99 03/01/19 03:35 03/01/19 06:54 03/01/19 03:35 03/01/19 03:35 03/01/19 03:35 Oxygen Flow Rate (L/min) 3 Oxygen Delivery Method Room Air Weight: 44.2 kg Body Mass Index (BMI) 17.8 Finger Stick Blood Glucose 156 Intake and Output for Last 24 Hours 02/27/19 02/28/19 03/01/19 23:59 23:59 23:59 Intake Total 3517 / 3874 3144 / 3891 1373 / 1373 Output Total 650 / 650 750 / 900 150 / 150 Balance 2867 / 3224 2394 / 2991 1223 / 1223 Microbiology Past 72 Hours 02/27/19 13:25 Gram Stain - Final Sputum, Expectorated/Coughed Respiratory Culture - Preliminary 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 02/27/19 04:00 Legionella Antigen - Final Urine, Clean Catch Streptococcus pneumoniae Antigen (M - Final Laboratory Tests Past 24 Hrs 02/27/19 03/01/19 03/01/19 05:55 05:40 05:40 WBC 15.7 H RBC 3.01 L Hgb 8.3 L Hct 24.4 L MCV 81.1 MCH 27.6 MCHC 34.0 RDW 19.6 H RDW Differential 58.0 H Plt Count 480 H MPV 8.6 Immature Gran % (Auto) 0.600 Neut % (Auto) 86.0 H Lymph % (Auto) 7.5 L [place] % (Auto) 5.6 Eos % (Auto) 0.1 Baso % (Auto) 0.2 Absolute Neuts (auto) 13.5 H Absolute Lymphs (auto) 1.18 Total Counted Not Reportable Nucleated RBC % 0.4 [address] Path Review Reviewed Absolute Retic 0.06 Sodium 137 Potassium 3.9 Chloride 110 H Carbon Dioxide 20.0 L Anion Gap 7 BUN 11 Creatinine 0.82 Estim Creat Clear Calc 55.36 Est GFR (MDRD) Af Amer 93 Est GFR (MDRD) Non-Af 77 BUN/Creatinine Ratio 13.4 Glucose 165 H Calcium 9.3 Clinical Impression(s) from Imaging Studies Thoracic Spine X-Ray 02/28/19 15:35 IMPRESSION: Intraoperative findings as described. Electronically Signed: Hossein Moe MD at 22:21 EDT Tel , Service support , Medical Necessity - Tobacco Use Smoking Status: Former smoker Tobacco Use: Cigarettes Assessment/Plan All Active Problems (Last Updated 02/25/19 @ 14:59 by Idalia Blankenship MD) Rib fractures (Acute) Acute right-sided thoracic back pain (Acute) Acute right-sided thoracic back pain (Acute) Radicular pain of thoracic region (Acute) Radicular pain of thoracic region (Acute) RECOMMENDATIONS: 1. Good response to rib block, consider weaning systemic pain meds 2. Walking oximetry prior to discharge 3. Encourage incentive spirometer and Acapella if able to tolerate 4. Would not recommend treatment of sputum culture as this likely represents colonization 5. Okay to discharge from my perspective with follow-up with primary metal finish inspector IMPRESSIONS: 1. Acute hypoxic respiratory insufficiency secondary to rib fractures Patient is reporting a chronic cough, which is unlikely to be controlled given her baseline of sarcoidosis. Patient has responded well to aggressive pain control. Likely okay to discontinue/wean systemic pain medications from my perspective. Patient sputum culture is growing probable staph and Pseudomonas, but this would be expected colonization given patient's lack of baseline pulmonary toileting therapy. 2. Bronchiectasis secondary to sarcoidosis Patient does have a history of sarcoidosis and was followed at the [facility] [place] previously. Patient is failed to follow-up with both the [facility] [place] and our office in the past. Review of the CAT scan does not show any significant progression compared to previous imaging. Patient would benefit from pulmonary toileting with Acapella, but I doubt she will comply with this given her rib fractures. Low clinical suspicion for active infection. Patient would likely not tolerate aggressive pulmonary toileting techniques, such as vest, at this time. 3. Hyperchloremic non-anion gap metabolic acidosis Likely secondary to volume resuscitation with normal saline. Increase free water intake. Hypokalemia has been resolved. 4. Hypertension/history of recent intestinal obstruction/moderate protein calorie malnutrition/history of noncompliance Complicates care, management, recovery and prognosis. Dietitian has been consulted. Blood pressure is adequate at this time. Code Visit Inpatient E&M: 47060 Subs Hosp L2
[2019-03-01] MEDS: Famotidine 20 MG Tablet PO (08:44)
[2019-03-01] MEDS: guaiFENesin 600 MG Tablet PO (08:46)
[2019-03-01] MEDS: Magnesium Oxide 400 MG Tablet PO (08:47)
[2019-03-01] MEDS: Lidocaine 5% Patch 2 PATCH TOPICAL (08:47)
[2019-03-01] MEDS: Leflunomide 10 MG TABLET 20 MG PO (08:48)
[2019-03-01] MEDS: Furosemide 20 MG Tablet PO (08:48)
[2019-03-01] MEDS: levETIRAcetam 500 MG Tablet PO (08:49)
[2019-03-01] MEDS: DULoxetine Hcl 60 MG Capsule PO (08:49)
[2019-03-01] MEDS: Folic Acid 1 MG Tablet PO (08:50)
[2019-03-01] MEDS: Gabapentin 600 MG Tablet 300 MG PO (08:50)
[2019-03-01] MEDS: Losartan Potassium 50 MG Tablet PO (08:51)
--- NOTE | 2019-03-01 11:08 | DCINST_ITS ---
- Discharge Diagnoses Current Active Problems: Current Active and Chronic Problems (Last Updated 02/25/19 @ 14:59 by Idalia Blankenship MD) Rib fractures (Acute) Acute right-sided thoracic back pain (Acute) Acute right-sided thoracic back pain (Acute) Radicular pain of thoracic region (Acute) Radicular pain of thoracic region (Acute) You will use the following diet at home:: Cardiac Your food should be the consistency of: Regular Your liquids should be the consistency of: Regular/Thin Discharge Activity: Return to Normal Activity Weight Bearing Status: Weight bearing as tolerated Call your doctor if you observe: Fever of 101 or Higher, Shortness of breath, Chest pain Instructions: Rib Fracture (Broken Rib), Coping with Shortness of Breath: Controlling Stress Additional Instructions: please call Dr Star Peguero's office at [phone] to book an appointment if you wish to change your PCP Allergies/Adverse Reactions: Allergies cephalexin monohydrate [From Keflex] Allergy (Mild, Verified 02/25/19 11:52) Itching doxycycline Adverse Reaction (Verified 02/25/19 11:52) Vomiting moxifloxacin HCl [From Avelox] Adverse Reaction (Verified 02/25/19 11:52) Vomiting Medications to take at Discharge Albuterol Aerosols [Ventolin Aerosols] 2.5 mg INHALATION Q2H PRN PRN 08/13/17 D-Methorphan Hb/Prometh HCl [Promethazine-Dm Syrup] 5 ml PO 4X/DAY PRN 12/28/18 Docusate Sodium [Doc-Q-Lace] 100 mg PO BID 12/28/18 Magnesium 400 mg PO BID 12/28/18 Magnesium Hydroxide [Milk Of Magnesia] 30 ml PO DAILY PRN PRN 12/28/18 Metoprolol Tartrate 25 mg PO DAILY 12/28/18 Tizanidine HCl [Zanaflex] 2 - 4 mg PO BID PRN PRN 12/28/18 Albuterol Inhaler [Ventolin Hfa] 1 - 2 puff INHALATION Q4H PRN PRN 02/25/19 Atorvastatin Calcium 10 mg PO QHS 02/25/19 Benzonatate [Tessalon Perle] 100 mg PO TID 02/25/19 Clonidine HCl 0.2 mg PO QHS PRN PRN 02/25/19 Duloxetine HCl 60 mg PO DAILY 02/25/19 Fluticasone Propionate [Flonase Allergy Relief] 2 spray IH DAILY 02/25/19 Folic Acid 1 mg PO DAILY@0800 02/25/19 Furosemide [Lasix] 20 mg PO DAILY 02/25/19 Gabapentin 300 mg PO BID 02/25/19 Gabapentin 600 mg PO QHS 02/25/19 Guaifenesin [Mucinex] 600 mg PO BID 02/25/19 Hydromorphone HCl 1 - 2 mg PO Q6H PRN PRN 02/25/19 Ipratropium [Atrovent Inhaler] 1 puff INHALATION Q6H PRN PRN 02/25/19 Ipratropium/Albuterol Sulfate [Duoneb] 3 ml INHALATION Q6H PRN PRN 02/25/19 Leflunomide [Arava] 20 mg PO DAILY 02/25/19 Levetiracetam [Keppra] 500 mg PO 02/25/19 Loperamide HCl [Imodium A-D] 2 mg PO PRN PRN 02/25/19 Losartan Potassium [Cozaar] 50 mg PO BID 02/25/19 Mirtazapine [Remeron] 30 mg PO QHS 02/25/19 Oxycodone HCl 10 mg PO Q4H PRN PRN 02/25/19 Potassium Citrate [Potassium Citrate ER] 5 meq PO DAILY 02/25/19 Promethazine HCl 6.25 - 12.5 mg PO Q6H PRN PRN 02/25/19 Sucralfate [Carafate] 1 gm PO 4X/DAY 02/25/19 Sulfamethoxazole/Trimethoprim [Sulfamethoxazole-Tmp Ds Tablet] 1 ea PO MOWEFR 02/25/19 Triamcinolone Acet/Dimethicone [Ellzia Jose Miguel] 1 ea TP BID 02/25/19 Primary Care Physician: John Sears MD [Primary Care Provider] - Please follow up with your Primary Care Physician in: one week Test Results: Test results from this visit will be discussed in further detail at your follow- up appointment, if applicable. Please Follow Up With: Alcides Chun MD When: one week Proposed Discharge Date: 03/01/19
--- NOTE | 2019-03-01 11:10 | PCM.DC.SUM ---
Discharge Date and Diagnosis - Problem List Patient Problems: Active and Suspected Problems (Last Updated 02/25/19 @ 14:59 by Idalia Blankenship MD) Rib fractures (Acute) Acute right-sided thoracic back pain (Acute) Acute right-sided thoracic back pain (Acute) Radicular pain of thoracic region (Acute) Radicular pain of thoracic region (Acute) Date of Admission: 02/25/19 Date of Discharge: 03/01/19 - Primary Discharge Diagnosis Active and Suspected Problems (Last Updated 02/25/19 @ 14:59 by Idalia Blankenship MD) Rib fractures (Acute) Acute right-sided thoracic back pain (Acute) Acute right-sided thoracic back pain (Acute) Radicular pain of thoracic region (Acute) Radicular pain of thoracic region (Acute) community acquired pneumonia - Secondary Discharge Diagnosis Chronic Problems (Last Updated 02/25/19 @ 14:59 by Idalia Blankenship MD) Chronic respiratory failure (Chronic) Bronchiectasis (Chronic) Asthma (Chronic) COPD (chronic obstructive pulmonary disease) (Chronic) Chronic pain (Chronic) Leukocytosis (Chronic) HTN (hypertension) (Chronic) Sarcoidosis (Chronic) Hospital Course and Treatment Imaging Results: Diagnostic Data Chest X-Ray 02/26/19 02:17 IMPRESSION: Appearance suggestive of bilateral pneumonia superimposed on chronic underlying lung disease. Electronically Signed: Adam Burnett MD at 3:17 EDT , Service support , Thoracic Spine X-Ray 02/28/19 15:35 IMPRESSION: Intraoperative findings as described. Electronically Signed: Hossein Moe MD at 22:21 EDT Tel , Service support , Consultations 02/25/19 16:47 Consult: Onc/Wound/impression printer Routine Comment: pulmonology- DR Chun pain management- Dr Raphael Operations: None Procedures: - - right thoracic epidural steroid injection under fluoroscopy at level of T6-7 Summary of Care Provided: The patient is a 53 year old F with an extensive past medical history as listed. She was admitted to the ED on 02/25/2019 with a complaint of right-sided chest pain. Chest pain was in the lateral aspect of the ribs, sharp, 10 out of 10 in severity, not radiating, aggravated by taking deep breath or movement and associated with shortness of breath and a cough. Patient has been seen in the ED 3 days prior to admission for same symptoms and had chest x-ray and CT of the chest done. Imaging done then showed nonunited left sixth and seventh rib fractures as well as acute fractures of the right sixth seventh and eighth ribs. At that time, patient refused to be admitted and was discharged home on oral pain meds. However the pain was poorly controlled and so she came back to the ED. She also reported a chronic cough and says she has been having increased shortness of breath on account of the pain. Of note, patient had also been seen about a month prior to admission on account of vomiting and CT of the abdomen and pelvis done showed a small bowel obstruction with abdominal wall mass and questionable abscess as well as renal failure and lactic acidosis and was transferred to [facility] where she had bowel resection with placement of IV ostomy bag. Labs were essentially unremarkable apart from significant leukocytosis which is chronic and bicarb of 14 which was also chronic. Chest x-ray done again revealed nondisplaced fractures of the right fifth sixth and seventh ribs. Patient denied any history of fall or any trauma at time of admission but however later said she thinks she fell about a month ago. She was admitted and managed for intractable chest pain due to rib fractures. Patient was placed on pain medication. CT chest done showed possible superimposed bilateral pneumonia so patient was started on IV ceftriaxone and azithromycin. Patient did have a history of sarcoidosis and had been lost to follow-up with [facility]. PUlmonology was therefore consulted to establish care and for future follow up. Patient's pain still remained difficult to control with pain management was consulted and patient had right thoracic epidural steroid injection under fluoroscopy at the level of T6-7 on 02/28/19. Sputum cultures done to Pseudomonas species and Staphylococcus aureus as well as gram-negative lactose cat sitter but these were thought to be likely due to colonization on account of patient's history of sarcoidosis and bronchiectasis. Patient's pain became much better controlled after she had the steroid injection. She remained stable and was discharged home on 03/01/2019. She is to follow-up with her primary care doctor and also to follow-up with pulmonology. Patient was counseled to be compliant with her follow-up care. Patient seen and examined prior to discharge. She felt much better and shortness of breath had improved significantly. She had no complaints and review of systems is otherwise negative. Labs and vitals reviewed. Medications reviewed and reconciled. o/e: Vital Signs Height 5 ft 2 in Weight: 97 lb 7.109 oz Weight in Pounds 97.4 lbs Pulse Ox 100 Temperature 98.0 F Pulse Rate 100 Respiratory Rate 16 Blood Pressure 144/86 Blood Pressure Position Semi-Fowlers [] General: Alert, Oriented x3, Cooperative, HEENT: Atraumatic, PERRLA, EOMI, Normocephalic Oral: Dry Mucosa Neck: Supple, No JVD, Negative Carotid Bruits Lungs: - - decreased breath sounds in all lung [place], on her baseline 3L of oxygen Cardiovascular: Regular rate, Regular Rhythm, Normal S1, Normal S2, No murmurs Abdomen: Bowel Sounds Present, Soft, Non Tender, Non-Distended, No Hepato-splenomegaly, - - ileostomy bag Extremities: No clubbing, No cyanosis, No edema, Capillary Refill Less than 3 Seconds Skin: No rashes, No breakdown Musculoskeletal: - - minimal tenderness on palpation of right flank Lymphatic: No Cervical, Supraclavicular, or Inguinal Adenopathy Neurological: Cranial nerves II-XII grossly intact, Neuro grossly intact, Motor Exam 5/5 strength throughout Psych/Mental Status: Normal Affect, Appropriate, Alert and oriented to time, place, person, mood and affect Plan as above. Patient Problems: Active and Suspected Problems (Last Updated 02/25/19 @ 14:59 by Idalia Blankenship MD) Rib fractures (Acute) Acute right-sided thoracic back pain (Acute) Acute right-sided thoracic back pain (Acute) Radicular pain of thoracic region (Acute) Radicular pain of thoracic region (Acute) - Physical Exam Vital Signs Temp Pulse Resp BP Pulse Ox 98.0 F 109 H 16 144/86 H 100 03/01/19 08:32 03/01/19 08:32 03/01/19 08:32 03/01/19 08:32 03/01/19 08:32 Oxygen Flow Rate (L/min) 3 Oxygen Delivery Method Room Air Weight: 97 lb 7.109 oz Body Mass Index (BMI) 17.8 Finger Stick Blood Glucose 156 Intake and Output for Last 24 Hours 02/27/19 02/28/19 03/01/19 23:59 23:59 23:59 Intake Total 3517 / 3874 3144 / 3891 1373 / 1373 Output Total 650 / 650 750 / 900 150 / 150 Balance 2867 / 3224 2394 / 2991 1223 / 1223 Microbiology Past 72 Hours 02/27/19 13:25 Gram Stain - Final Sputum, Expectorated/Coughed Respiratory Culture - Preliminary GNR lactose cat sitter GNR Poss Pseudomonas sp Staphylococcus aureus 02/27/19 04:00 Legionella Antigen - Final Urine, Clean Catch Streptococcus pneumoniae Antigen (M - Final Laboratory Tests Past 24 Hrs 02/27/19 03/01/19 03/01/19 05:55 05:40 05:40 WBC 15.7 H RBC 3.01 L Hgb 8.3 L Hct 24.4 L MCV 81.1 MCH 27.6 MCHC 34.0 RDW 19.6 H RDW Differential 58.0 H Plt Count 480 H MPV 8.6 Immature Gran % (Auto) 0.600 Neut % (Auto) 86.0 H Lymph % (Auto) 7.5 L [place] % (Auto) 5.6 Eos % (Auto) 0.1 Baso % (Auto) 0.2 Absolute Neuts (auto) 13.5 H Absolute Lymphs (auto) 1.18 Total Counted Not Reportable Nucleated RBC % 0.4 Diff Path Review Reviewed Absolute Retic 0.06 Sodium 137 Potassium 3.9 Chloride 110 H Carbon Dioxide 20.0 L Anion Gap 7 BUN 11 Creatinine 0.82 Estim Creat Clear Calc 55.36 Est GFR (MDRD) Af Amer 93 Est GFR (MDRD) Non-Af 77 BUN/Creatinine Ratio 13.4 Glucose 165 H Calcium 9.3 Discharge Diet: Low fat/ Low Cholesterol Discharge Activity: Return to Normal Activity Weight Bearing Status: Weight bearing as tolerated Call your doctor if you observe: Fever of 101 or Higher, Shortness of breath, Chest pain Home Medications: Medications to take at Discharge Albuterol Aerosols [Ventolin Aerosols] 2.5 mg INHALATION Q2H PRN PRN 08/13/17 D-Methorphan Hb/Prometh HCl [Promethazine-Dm Syrup] 5 ml PO 4X/DAY PRN 12/28/18 Docusate Sodium [Doc-Q-Lace] 100 mg PO BID 12/28/18 Magnesium 400 mg PO BID 12/28/18 Magnesium Hydroxide [Milk Of Magnesia] 30 ml PO DAILY PRN PRN 12/28/18 Metoprolol Tartrate 25 mg PO DAILY 12/28/18 Tizanidine HCl [Zanaflex] 2 - 4 mg PO BID PRN PRN 12/28/18 Albuterol Inhaler [Ventolin Hfa] 1 - 2 puff INHALATION Q4H PRN PRN 02/25/19 Atorvastatin Calcium 10 mg PO QHS 02/25/19 Benzonatate [Tessalon Perle] 100 mg PO TID 02/25/19 Clonidine HCl 0.2 mg PO QHS PRN PRN 02/25/19 Duloxetine HCl 60 mg PO DAILY 02/25/19 Fluticasone Propionate [Flonase Allergy Relief] 2 spray IH DAILY 02/25/19 Folic Acid 1 mg PO DAILY@0800 02/25/19 Furosemide [Lasix] 20 mg PO DAILY 02/25/19 Gabapentin 300 mg PO BID 02/25/19 Gabapentin 600 mg PO QHS 02/25/19 Guaifenesin [Mucinex] 600 mg PO BID 02/25/19 Hydromorphone HCl 1 - 2 mg PO Q6H PRN PRN 02/25/19 Ipratropium [Atrovent Inhaler] 1 puff INHALATION Q6H PRN PRN 02/25/19 Ipratropium/Albuterol Sulfate [Duoneb] 3 ml INHALATION Q6H PRN PRN 02/25/19 Leflunomide [Arava] 20 mg PO DAILY 02/25/19 Levetiracetam [Keppra] 500 mg PO 02/25/19 Loperamide HCl [Imodium A-D] 2 mg PO PRN PRN 02/25/19 Losartan Potassium [Cozaar] 50 mg PO BID 02/25/19 Mirtazapine [Remeron] 30 mg PO QHS 02/25/19 Oxycodone HCl 10 mg PO Q4H PRN PRN 02/25/19 Potassium Citrate [Potassium Citrate ER] 5 meq PO DAILY 02/25/19 Promethazine HCl 6.25 - 12.5 mg PO Q6H PRN PRN 02/25/19 Sucralfate [Carafate] 1 gm PO 4X/DAY 02/25/19 Sulfamethoxazole/Trimethoprim [Sulfamethoxazole-Tmp Ds Tablet] 1 ea PO MOWEFR 02/25/19 Triamcinolone Acet/Dimethicone [Ellzia Jose Miguel] 1 ea TP BID 02/25/19 Primary Care Physician: John Sears MD [Primary Care Provider] - Please follow up with your Primary Care Physician in: one week Please Follow Up With: Alcides Chun MD When: one week Patient Instructions: Coping with Shortness of Breath: Controlling Stress, Rib Fracture (Broken Rib) Disposition: Home with Home Health Minutes spent on discharge:: 40 Patient Condition:: Stable Medical Necessity - Tobacco Use Smoking Status: Former smoker Tobacco Use: Cigarettes Meaningful Use Info Meaningful Use Diagnoses (Choose all that apply): None applicable Code Visit Inpatient E&M: 00114 Disch Hosp
--- NOTE | 2019-03-03 11:38 | CASEMGMT ---
H&P, d/c summary and instructions, as well as resumption of care order faxed to [facility] [place] at this time. Call to Herlinda at [facility] [place] to notify of pt d/c on 03/01/19, voices understanding and voices no further questions/concerns/needs at this time. SStshania PIMENTEL CM
--- NOTE | 2019-03-03 14:25 | CASEMGMT ---
LOREN MCCORMACK DC PHONE CALL DC DATE: 03/01/19 DC Disposition: Home with [facility] Diagnosis on Discharge: Rib fractures LACE/STRATA: 03/12 Intro role of CM to patient via phone. Pt states she is doing well at home. No questions re: dc instructions. Pt has f/u appt made for Sunday to see PCP. Home Health information was faxed this am. Pt has not been notified of date of visit yet. LOREN MCCORMACK let pt know that [facility] was updated this am on her dc to home. Ray able to assist pt. No further questions and no care improvement suggestions were given. Sera ORDOÑEZN RN ACM
== END 2019-03-01 13:39 | disposition home or self-care (01) | DRG 183 ==
LOC: ED 14:59 → MS3 15:15 → PCU 02-26 11:36
PROVIDERS: Anesthesiology; Admitting Provider Hospitalist; Emergency Provider Emergency Medicine; Family Provider Family Medicine; PCP Family Medicine; Referring Provider Hospitalist; Visit Provider Student in an Organized Health Care Education/Training Program
PROC: 3E0S3BZ Introduction of Anesthetic Agent into Epidural Space, Percutaneous Approach (ICD-10-PCS; principal; 2019-02-28 15:25)
DX: S22.41XA Multiple fractures of ribs, right side, initial encounter for closed fracture (principal); J18.9 Pneumonia, unspecified organism; E43 Unspecified severe protein-calorie malnutrition; A41.9 Sepsis, unspecified organism; Z68.1 Body mass index [BMI] 19.9 or less, adult; J96.11 Chronic respiratory failure with hypoxia; J44.0 Chronic obstructive pulmonary disease with (acute) lower respiratory infection; M54.14 Radiculopathy, thoracic region; D86.9 Sarcoidosis, unspecified; Z99.81 Dependence on supplemental oxygen; I10 Essential (primary) hypertension; Z87.891 Personal history of nicotine dependence; Z93.2 Ileostomy status; E87.6 Hypokalemia; Z79.899 Other long term (current) drug therapy
CPT/HCPCS: 36415; 64490; 71045; 71275; 72070; 80048; 82306; 83735; 83970; 84484; 85025; 85379; 87040; 87070; 87077; 87184; 87186; 87205; 87449; 93005; 94640; 96361; 96374; 96375; 97110; 97162; 97166; 97802; 99285; J7030; J7120; Q9967; A4216; J2405

== ENCOUNTER 2019-03-15 09:00 | Inpatient (IN) | payer MEDICARE, SELFPAY ==
[2019-03-06 10:06] VITALS: BMI 18.3
[2019-03-15] VITALS (8 sets, daily range): BP systolic 132–190; BP diastolic 88–107; PULSE 89–100; RESP 16–18; TEMP 36.1–37; O2SAT 94–98; BMI 16.5; BMI 16.9
--- NOTE | 2019-03-15 09:26 | ED.DCSUM_ITS ---
History of Present Illness <GageAlfred - Last Filed: 03/15/19 09:32> Informant: Patient Onset: Month(s) - For the last 1 year Context: Gradual Onset Timing: Continuous Quality: aching Location: fingers Current Severity: Severe Maximum Severity: Severe Worsened by: movement Relieved by: rest Associated Symptoms: Nausea decreased appetite weight loss Narrative: 53-year-old female with a history of sarcoidosis presents to the emergency department with 12 months of feeling ill decreased appetite generalized weakness and weight loss. Patient states that she does not have any fevers or night sweats. She has had a cough but it is consistent with her chronic sarcoidosis and COPD and has no hemoptysis. She has had several episodes of vomiting over the past 1 year but not recently. No diarrhea. No melena or hematochezia. No urinary symptoms. She is not having any abdominal pain. She denies chest pain or shortness of breath or back pain. She does have some polyarthralgias in her fingers which are chronic secondary to her sarcoidosis. Prior similar symptoms: Yes Recent Illness/Hospitalization: Yes <Baldo Dill - Last Filed: 03/15/19 10:34> Chief Complaint: Weakness Past Medical History <Alfred Almonte - Last Filed: 03/15/19 09:32> Prior records reviewed: Yes Surgical History: - - Bilateral tubal ligation. lung biopsy ' Smoking Status: Former smoker - Family History Maternal Family History: Reports: Diabetes, Hypertension, Stroke Paternal Family History: Reports: Stroke <Baldo Dill - Last Filed: 03/15/19 10:34> - Allergies and Home Meds Allergies/Adverse Reactions: Allergies cephalexin monohydrate [From Keflex] Allergy (Mild, Verified 03/15/19 09:03) Itching doxycycline Adverse Reaction (Verified 03/15/19 09:03) Vomiting moxifloxacin HCl [From Avelox] Adverse Reaction (Verified 03/15/19 09:03) Vomiting Primary Care Physician: John Sears MD [Primary Care Provider] - Review of Systems All systems negative except as indicated General: Reports: Malaise Gastrointestinal: Reports: Nausea, Vomiting Musculoskeletal: Reports: Arthralgias <Baldo Dill - Last Filed: 03/15/19 10:34> Physical Exam Vital Signs/Narrative: Vital Signs Temp Pulse Resp BP Pulse Ox 03/15/19 09:01 98.6 F 100 18 132/102 H 94 <Alfred Almonte - Last Filed: 03/15/19 09:32> Vital Signs/Narrative: Vital Signs Temp Pulse Resp BP Pulse Ox 03/15/19 09:01 98.6 F 100 18 132/102 H 94 Inital Vital Signs reviewed: Yes General: Well nourished, Well developed, No Acute Distress Head: Atraumatic Eyes: Perrl, EOMI ENT: Moist mucous membranes Neck: Supple, Nontender Cardiovascular: Regular rate, Regular rhythm Respiratory: No distress, CTA bilaterally, Chest nontender Abdomen: Soft, Nontender, Nondistended, Normal bowel sounds, No masses, - - Ileostomy right lower quadrant. No bag is in place. No surrounding signs of infection. Back: Nontender Extremities: Nontender, No edema Skin: Normal color, No rash Neurological: Alert, Oriented x3, Normal Strength, Normal Sensation <Baldo Dill - Last Filed: 03/15/19 10:34> Diagnostic/Tx/Re-eval - Medical Decision Making I evaluated this patient with our physician grants and contracts assistant AP. Patient has chronic sarcoidosis. Currently is not on steroids. She has had a weight loss of approximately 11 pounds in the last 1 to 2 weeks. Saw her primary care physician's office today and they sent her in. She has no new complaints today. This is a chronic ongoing issue. She has a known ileostomy from a prior bowel perforation. No history of cancer. She denies any melena. Older female no acute distress. She does look cachectic. HEENT exam unremarkable. Neck nontender. Lungs clear to auscultation. Heart regular rhythm no murmur. Abdomen is soft and nontender. Scaphoid. She does have an ileostomy. Patient is moving all 4 extremities. There are neurovascular intact. No edema. Impressions: 1. Weight loss 2. Chronic sarcoidosis <Alfred Almonte - Last Filed: 03/15/19 09:32> - Medical Decision Making Laboratory work-up was remarkable for a white blood cell count of 32.9 which is slightly above the patient's baseline of anywhere from 20-30. Sodium 128, potassium 2.8, anion gap 18, BUN of 60 and a creatinine of 5.0. Patient appears to be severely dehydrated. She will be given 2 L of IV fluids. Her vital signs are stable at this time. She will require admission for further treatment and evaluation. Hospitalist contacted. <Baldo Dill - Last Filed: 03/15/19 10:34> ED Disposition <Alfred Almonte - Last Filed: 03/15/19 09:32> <Baldo Dill - Last Filed: 03/15/19 10:34> - Plan for ED Patient: Disposition: Acute Care Hospital [facility] Diagnosis: Acute renal failure, Severe dehydration, Hyponatremia, Hypokalemia, Leukocytosis, Sarcoidosis Referrals: John Sears MD [Primary Care Provider] -
[2019-03-15] MEDS: proMETHazine 25 MG Tablet PO (09:41)
[2019-03-15 10:00] LABS: Absolute Lymphocyte Count 1.07 X10^3/uL (0.83-4.51); Absolute Neutrophil Count 28.4 X10^3/uL (2.0-7.7); Absolute Nucleated RBC Count 0.26 10^3/uL (0-5); Basophil# 0.11 X10^3/uL; Basophil% 0.3 % (0-1); Eosinophil# 0.01 X10^3/uL; Hematocrit 34.5 % (37-47); Hemoglobin 12.4 g/dL (12.0-15.0); Lymphocyte # 1.07 X10^3/ul (4.0); Lymphocyte % 3.2 % (19-41); Mean Corp Hgb Conc 35.9 g/dL (32-36); Mean Corpuscular Hgb 28.1 pg (27.0-32.0); Mean Corpuscular Volume 78.1 fL (81-99); Mean Platelet Vol. 8.6 fl (6.2-12.0); Monocyte# 2.75 X10^3/uL; Monocyte% 8.4 % (0-10); NRBC Flagged by Analyzer 0.8 % (0-5); Neutrophil # 28.42 X10^3/uL (2.7-7.7); Neutrophil % 86.4 % (47-70); POSITIVE COUNT YES; POSITIVE DIFFERENTIAL YES; Platelet Count 401 K/mm3 (150-450); RBC Distribution Width SD 45.1 fl (35.1-43.9); Red Blood Count 4.42 M/mm3 (4.2-5.4)
[2019-03-15 10:02] LABS: Differential Indicated SCAN CRITERIA MET; White Blood Count 32.9 K/mm3 (4.4-11.0)
[2019-03-15 10:14] LABS: Anion Gap 18 (5-15); BUN 60 mg/dL (7-18); Calcium,Total 9.1 mg/dL (8.5-10.1); Chloride 95 mmol/L (98-107); EST Glomerular Filtration Rate 10 mL/min (>60); Est Glom Filt Rate - Afr Amer 12 mL/min (>60); Estimated Creatinine Clearance 8.39 ml/min; Glucose 134 mg/dL (74-106); Potassium 2.8 mmol/L (3.5-5.1); Sodium Level 128 mmol/L (136-145)
[2019-03-15 10:21] LABS: Differential Comment SCANNED
--- NOTE | 2019-03-15 11:03 | US_ITS ---
STUDY: RENAL ULTRASOUND - COMPLETE REASON FOR EXAM: Female, 53 years old. Acute renal failure TECHNIQUE: Ultrasound evaluation of the kidneys was performed with real-time and static mitchell-scale imaging. COMPARISON: 06/06/2015 FINDINGS: RIGHT KIDNEY: Normal location of the right kidney, which is normal in size. The right kidney measures 7.7 x 4.3 x 3.0 cm. There is diffuse thinning of the renal cortex. The renal cortex measures 1.0 cm. There is no right renal mass or cyst. There are no right renal calculi. There is no right hydronephrosis. DISTAL RIGHT URETER: There is non-visualization of the distal right ureter. There is no demonstrated right ureterovesical junction calculus. There is no demonstrated right ureteral jet. LEFT KIDNEY: Normal location of the left kidney, which is normal in size. The left kidney measures 8.5 x 3.3 x 3.6 cm. There is a normal cortex of the left kidney. The renal cortex measures 1.1 cm. There is no left renal mass or cyst. There are no left renal calculi. There is no left hydronephrosis. DISTAL LEFT URETER: There is non-visualization of the distal left ureter. There is no demonstrated left ureterovesical junction calculus. There is a visualized left ureteral jet. BLADDER: The urinary bladder is not well distended. There is no demonstrated mass within the urinary bladder. There are no demonstrated bladder calculi. US/Kidney and Bladder IMPRESSION: 1. No hydronephrosis. 2. Bilateral renal atrophy is new since 2014. Electronically Signed: Steven Martinez MD at 11:48 EDT , Service support ,
[2019-03-15] MEDS: 0.9% Normal Saline 1,000 ML 1000 ML IV (11:21)
--- NOTE | 2019-03-15 11:40 | ED.RN ---
IV PLACED TO RT AC/UPPER ARM UNDER ULTRASOUND GUIDANCE. PT TOLERATED WELL. SITE FLUSHES EASILY AND OBSERVED FLUSHING DURING ULTRASOUND
[2019-03-15] MEDS: 0.9% Normal Saline 1,000 ML 175 ML IV (13:54)
[2019-03-15] MEDS: cloNIDine HCl 0.2 MG Tablet PO ×2 (14:53→21:52)
--- NOTE | 2019-03-15 15:23 | PCM.CONS.R ---
Problem List (1) Acute kidney failure Status: Acute (2) Hypokalemia Status: Acute (3) Hyponatremia Status: Acute (4) HTN (hypertension) Status: Chronic Qualifiers: Hypertension type: essential hypertension Consultation - Renal PCP/ Referring MD: Requesting physician: [] Primary care physician: John Sears MD - History of Present Illness History of Present Illness: The patient is a 53 year old F past medical history of sarcoidosis, status post small bowel resection 5 months ago as per the patient, COPD, hypertension. Patient presented to the hospital for progressive weakness weight loss and decreased appetite. In the emergency room she was found to have acute kidney injury with creatinine up to 5.0 mg/dL from normal baseline 0.8 mg/dL 2 weeks ago. Patient states she has been having high ostomy bag output. Patient also has been receiving Bactrim at home. Patient denies any NSAID use. No IV contrast exposure. No skin rash. Denies urinary obstructive symptoms. She states she still making urine. Patient complain of sleepiness and tiredness. No shortness of breath. Denied nausea vomiting. Review of system: 12 system review is negative except what mentioned HPI [] - Allergies Allergies: Allergies cephalexin monohydrate [From Keflex] Allergy (Mild, Verified 03/15/19 09:03) Itching doxycycline Adverse Reaction (Verified 03/15/19 09:03) Vomiting moxifloxacin HCl [From Avelox] Adverse Reaction (Verified 03/15/19 09:03) Vomiting - Current Medications Current Medications: Current Medications Albuterol/Ipratropium (Duoneb) 3 ml INHALATION Q4H PRN PRN PRN Reason: DYSPNEA Amlodipine Besylate (Norvasc) 5 mg PO DAILY DWAINE Atorvastatin Calcium (Lipitor) 10 mg PO QHS DWAINE Clonidine (Catapres) 0.2 mg PO BID DWAINE Last Admin: 03/15/19 14:53 Dose: 0.2 mg Documented by: Dextrose (D50w Syringe) 0 gm IV X1 PRN; Protocol PRN Reason: Hypoglycemia Duloxetine HCl (Cymbalta) 60 mg PO DAILY DWAINE Folic Acid (Folic Acid) 1 mg PO DAILY@0800 WDAINE Gabapentin (Neurontin) 100 mg PO BID DWAINE Glucagon () 1 mg IM .X1 PRN PRN Reason: Hypoglycemia Heparin Sodium (Porcine) (Heparin Na) 5,000 unit SC Q12 DWAINE Sodium Chloride () 1,000 mls @ 175 mls/hr IV .Q5H43M [facility] Last Admin: 03/15/19 13:54 Dose: 175 mls/hr Documented by: Labetalol HCl (Trandate) 10 mg IV Q4H PRN PRN PRN Reason: Hypertensive Emergency Metoprolol Tartrate (Lopressor (Beta Carine)) 25 mg PO DAILY [facility] Mirtazapine (Remeron) 30 mg PO QHS [facility] Nutritional Formula (Lactose Free) (Ensure Enlive) 120 ml PO 4X/DAY [facility] Last Admin: 03/15/19 13:53 Dose: 120 ml Documented by: Oxycodone HCl (Oxyir) 15 mg PO Q4H PRN PRN PRN Reason: SEVERE PAIN (-05/29) Potassium Chloride (K-Dur) 40 meq PO X1 ONE Stop: 03/15/19 17:01 Sodium Chloride () 10 - 40 ml IV UD PRN PRN Reason: SALINE FLUSH Tizanidine HCl (Zanaflex) 2 - 4 mg PO BID PRN PRN PRN Reason: muscle spasms - Past Medical History Past Medical History (Chronic Problems): Chronic Problems (Last Updated 02/25/19 @ 14:59 by Idalia Blankenship MD) Chronic respiratory failure (Chronic) Bronchiectasis (Chronic) Asthma (Chronic) COPD (chronic obstructive pulmonary disease) (Chronic) Chronic pain (Chronic) Leukocytosis (Chronic) HTN (hypertension) (Chronic) Sarcoidosis (Chronic) - Past Surgical History Surgical History: - - Bilateral tubal ligation. lung biopsy ' - Social History Smoking Status: Former smoker - Family History Maternal History Items: Diabetes, Hypertension, Stroke Paternal History Items: Stroke Patient Problems: Active and Suspected Problems (Last Updated 02/25/19 @ 14:59 by Idalia Blankenship MD) Acute renal failure (Acute) Severe dehydration (Acute) Hyponatremia (Acute) Hypokalemia (Acute) Acute kidney failure (Acute) Hypokalemia (Acute) Hyponatremia (Acute) - Physical Exam General: Alert, No apparent distress, - - Drowsy a little bit HEENT: Atraumatic Oral: Dry Mucosa Neck: Supple, No JVD Lungs: Clear to auscultation, Normal air movement, No rhonchi Cardiovascular: Regular rate, Regular Rhythm, Normal S1, Normal S2 Abdomen: Bowel Sounds Present, Soft, Non Tender, - - Ostomy bag in place Extremities: No clubbing, No cyanosis, Edema - Trace edema of lower extreme Musculoskeletal: Cachexia, Muscle Wasting Lymphatic: No Cervical, Supraclavicular, or Inguinal Adenopathy Neurological: Neuro grossly intact Psych/Mental Status: Appropriate Vital Signs Temp Pulse Resp BP Pulse Ox 97.3 F L 97 16 190/107 H 98 03/15/19 14:00 03/15/19 14:00 03/15/19 14:00 03/15/19 14:00 03/15/19 14:00 Oxygen Delivery Method Room Air Weight: 42.184 kg Body Mass Index (BMI) 16.9 Finger Stick Blood Glucose 156 Laboratory Tests Past 24 Hrs 03/15/19 03/15/19 09:50 09:50 WBC 32.9 H* RBC 4.42 Hgb 12.4 Hct 34.5 L MCV 78.1 L MCH 28.1 MCHC 35.9 RDW Std Deviation 45.1 H RDW Coeff of Mary 16.0 H Plt Count 401 MPV 8.6 Immature Gran % (Auto) 1.700 H Neut % (Auto) 86.4 H Lymph % (Auto) 3.2 L [place] % (Auto) 8.4 Eos % (Auto) 0.0 Baso % (Auto) 0.3 Absolute Neuts (auto) 28.4 H Absolute Lymphs (auto) 1.07 Absolute Nucleated RBC 0.26 Nucleated RBC % 0.8 Differential Comment SCANNED Diff Path Review December Sodium 128 L Potassium 2.8 L Chloride 95 L Carbon Dioxide 15.0 L Anion Gap 18 H BUN 60 H Creatinine 5.00 H Estim Creat Clear Calc 8.39 Est GFR (MDRD) Af Amer 12 L Est GFR (MDRD) Non-Af 10 L BUN/Creatinine Ratio 12.0 Glucose 134 H Calcium 9.1 Assessment/Plan All Active Problems (Last Updated 02/25/19 @ 14:59 by Idalia Blankenship MD) Rib fractures (Acute) Acute right-sided thoracic back pain (Acute) Acute right-sided thoracic back pain (Acute) Radicular pain of thoracic region (Acute) Radicular pain of thoracic region (Acute) Acute renal failure (Acute) Severe dehydration (Acute) Hyponatremia (Acute) Hypokalemia (Acute) Acute kidney failure (Acute) Hypokalemia (Acute) Hyponatremia (Acute) 1-acute kidney injury. Normal creatinine at baseline. Differential diagnosis of acute kidney injury is prerenal from dehydration versus ATN versus AIN from Bactrim. Creatinine up to 5.0 mg/dL. No urgent indication for dialysis. I agree with IV fluid. I will change IV fluid to isotonic sodium bicarb drip due to acidosis. I will order UA. I will expand work-up for JERO depending on UA findings and response to IV fluid. Please continue holding losartan and Lasix. Home Bactrim is on hold. Check kidney function in the morning. 8-[id number]-GI loss. Patient received potassium chloride 40 mcg 1 dose today. Check potassium in the morning. 3-hyponatremia. Also from GI loss and dehydration with poor oral intake. Sodium level is down to 128. Continue IV fluid. No need for 3% sodium chloride. 4-high anion gap metabolic acidosis from JERO. Check lactic acid level. I will switch IV fluid to isotonic sodium bicarb. 5-hypertension: Blood pressure is elevated. Patient is in clonidine 0.2 mg twice a day. I will add Norvasc 5 mg p.o. daily. I will add labetalol as needed for blood pressure more than 160/90. Renal team will continue to follow. Thank you for the consult. Please call if any question concern at my cell phone #[phone] Marianne Cook MD
--- NOTE | 2019-03-15 15:35 | NURSING ---
Report obtained from Ruth PIMENTEL and aware of vital Signs that were taken around 1400 today. this nurse will recheck BP again.
[2019-03-15] MEDS: amLODIPine 5 MG Tablet PO (16:24)
--- NOTE | 2019-03-15 16:34 | NURSING ---
This nurse went to go give Trandate IV per orders but checked BP first and it was 151/88, HR 91. Gave Norvasc po instead as parameters for Trandate say for SBP > 160. Will check BP again tonight.
--- NOTE | 2019-03-15 16:43 | NURSING ---
Pt is Drowsy awakens easily talked with this nurse a few minutes. Able to take pills without difficulty with water and applesauce. Talked with this nurse several minutes after pills given. As this nurse was in room and charting on pt, pt started falling asleep again but again awakens easily. Pt said she was in pain only when asked by this nurse but then falls back asleep. This nurse is not going to give any pain medication at this time since Ms. Lai is Drowsy. If she becomes more awake, then It will be given.
--- NOTE | 2019-03-15 17:26 | HP.PCM_ITS ---
Problem List (1) Generalized weakness Status: Acute (2) Fatigue Status: Acute Qualifiers: Fatigue type: unspecified Qualified Code(s): R53.83 - Other fatigue History of Present Illness Date of Admission: 03/15/19 Chief Complaint: Weakness, fatigue The patient is a 53 year old F who was seen in the emergency room at [facility] after being sent in from her physician's office due to complaints of generalized fatigue and weakness. Patient denied any fevers or chills. Patient has had weight loss over the last several months, she admits to a cough but she has a history of chronic sarcoidosis. Patient has a long- standing history of leukocytosis which she states is secondary to her sarcoidosis. She states she has seen a linesperson in [place]. Lab was obtained in the emergency room, an elevated white blood cell count of 32.9 was noted, sodium was 128, potassium was 2.8, BUN was 60, and creatinine was 5. Patient was given IV fluids in the emergency room, patient was admitted for acute renal failure. Past Medical History Past Medical History (Chronic Problems): Chronic Problems (Last Updated 02/25/19 @ 14:59 by Idalia Blankenship MD) Chronic respiratory failure (Chronic) Bronchiectasis (Chronic) Asthma (Chronic) COPD (chronic obstructive pulmonary disease) (Chronic) Chronic pain (Chronic) Leukocytosis (Chronic) HTN (hypertension) (Chronic) Sarcoidosis (Chronic) Medical History: Medical History (Last Updated 02/25/19 @ 14:59 by Idalia Blankenship MD) Bronchiectasis (Chronic) J47.9 Asthma (Chronic) J45.909 COPD (chronic obstructive pulmonary disease) (Chronic) J44.9 Leukocytosis (Chronic) D72.829 HTN (hypertension) (Chronic) I10 Sarcoidosis (Chronic) D86.9 Allergies cephalexin monohydrate [From Keflex] Allergy (Mild, Verified 03/15/19 09:03) Itching doxycycline Adverse Reaction (Verified 03/15/19 09:03) Vomiting moxifloxacin HCl [From Avelox] Adverse Reaction (Verified 03/15/19 09:03) Vomiting Home Medications: Ambulatory Orders Medication Instructions Recorded Albuterol Aerosols [Ventolin 2.5 mg INHALATION Q2H PRN PRN 08/13/17 Aerosols] Magnesium 400 mg PO BID 12/28/18 Magnesium Hydroxide [Milk Of 30 ml PO DAILY PRN PRN 12/28/18 Magnesia] Metoprolol Tartrate 25 mg PO DAILY 12/28/18 Tizanidine HCl [Zanaflex] 2 - 4 mg PO BID PRN PRN 12/28/18 Albuterol Inhaler [Ventolin Hfa] 1 - 2 puff INHALATION Q4H PRN PRN 02/25/19 Atorvastatin Calcium 10 mg PO QHS 02/25/19 Benzonatate [Tessalon Perle] 100 mg PO TID 02/25/19 Clonidine HCl 0.2 mg PO QHS PRN PRN 02/25/19 Duloxetine HCl 60 mg PO DAILY 02/25/19 Fluticasone Propionate [Flonase 2 spray IH DAILY 02/25/19 Allergy Relief] Folic Acid 1 mg PO DAILY@0800 02/25/19 Furosemide [Lasix] 20 mg PO DAILY 02/25/19 Gabapentin 300 mg PO BID 02/25/19 Gabapentin 600 mg PO QHS 02/25/19 Guaifenesin [Mucinex] 600 mg PO BID 02/25/19 Ipratropium [Atrovent Inhaler] 1 puff INHALATION Q6H PRN PRN 02/25/19 Loperamide HCl [Imodium A-D] 2 mg PO PRN PRN 02/25/19 Losartan Potassium [Cozaar] 50 mg PO BID 02/25/19 Mirtazapine [Remeron] 30 mg PO QHS 02/25/19 Oxycodone HCl 10 mg PO Q4H PRN PRN 02/25/19 Potassium Citrate [Potassium 5 meq PO DAILY 02/25/19 Citrate ER] Sulfamethoxazole/Trimethoprim 1 ea PO MOWEFR 02/25/19 [Sulfamethoxazole-Tmp Ds Tablet] Surgical History: Surgical History (Last Updated 02/25/19 @ 14:59 by Idalia Blankenship MD) History of lung biopsy (Inactive) Z98.890 History of tubal ligation (Inactive) Z98.51 Surgical History: - - Bilateral tubal ligation. 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 Denies: Anorexia, Chills, Fever, Night Sweats Eyes: Denies: Cataracts, Conjunctivae Inflammation, Double vision, Drainage HEENT: Denies: Difficulty Swallowing, Dysphasia, Ear Pain, Eye Pain, Hearing Changes, Nasal bleeding, Nasal Congestion, Post Nasal Drip Cardiovascular: Denies: Chest Pain, Claudication, Chest Pressure, Chest Tightness, Edema, Heaviness, Orthopnea, Palpitations Respiratory: Reports: Cough. Denies: Hemoptysis, Pleuritic Pain, Shortness of Breath, Shortness of breath at rest, Shortness of breath upon exertion, Sputum production, Wheezing Gastrointestinal: Denies: Abdominal Pain, Constipation, Diarrhea, Hematemesis, Hematochezia, Nausea, Melena, Vomiting Genitourinary: Denies: Dysuria, Frequency, Hematuria, Hesitancy, Nocturia, Retention, Urgency Musculoskeletal: Reports: - - Chronic chest pain. Denies: Foot Pain, Hand Pain, Joint Pain, Joint stiffness, Joint swelling, Joint Tenderness, Leg Pain Skin: Denies: Dryness, Jaundice, Pruritis, Rash Neurological: Denies: Balance problems, Blurred vision, Double vision, Slurred speech, Difficulty swallowing, Focal weakness, Headaches, Incoordination, Numbness, Tingling Psychiatric: Denies: Anxiety, Depression, Homicidal Ideations, Suicidal Ideations Endocrine: Denies: Change in Body Habitus, Heat/ Cold Intolerance, Polydipsia, Polyuria Hematologic/ Lymphatic: Denies: Adenopathy, Anemia, Easy Bruising, Easy Bleedi ng, Petechiae, Purpura VTE Information - Inpt Only VTE Present on Admission: No VTE Mechan Device Prophylaxis: None VTE Pharm Prophylaxis ordered?: Yes Patient Problems: Active and Suspected Problems (Last Updated 02/25/19 @ 14:59 by Idalia Blankenship MD) Acute renal failure (Acute) Severe dehydration (Acute) Hyponatremia (Acute) Hypokalemia (Acute) Acute kidney failure (Acute) Hypokalemia (Acute) Hyponatremia (Acute) Generalized weakness (Acute) Fatigue (Acute) - Physical Exam General: Alert, Oriented x3, Cooperative, No apparent distress, Well developed HEENT: Atraumatic, PERRLA, EOMI, Normocephalic Oral: Dry Mucosa Neck: Supple, No JVD, Negative Carotid Bruits, No Nuchal Rigidity, Trachea Midline, Thyroid Normal Size and Texture Lungs: Clear to auscultation, Normal air movement, No rhonchi, No wheeze, No rales Cardiovascular: Regular rate, Regular Rhythm, Normal S1, Normal S2, No murmurs Abdomen: Bowel Sounds Present, Soft, Non Tender, Non-Distended Extremities: No clubbing, No cyanosis, No edema, Capillary Refill Less than 3 Seconds Skin: No rashes, No breakdown Musculoskeletal: Cachexia, Muscle Wasting Neurological: Cranial nerves II-XII grossly intact, Neuro grossly intact, Sensory exam intact to light touch and pain, Coordination normal Psych/Mental Status: Normal Affect, Appropriate, Alert and oriented to time, place, person, mood and affect Vital Signs Temp Pulse Resp BP Pulse Ox 97.3 F L 91 16 151/88 H 98 03/15/19 14:00 03/15/19 16:34 03/15/19 14:00 03/15/19 16:34 03/15/19 14:00 Oxygen Delivery Method Room Air Weight: 42.184 kg Body Mass Index (BMI) 16.9 Finger Stick Blood Glucose 156 Laboratory Tests Past 24 Hrs 03/15/19 03/15/19 09:50 09:50 WBC 32.9 H* RBC 4.42 Hgb 12.4 Hct 34.5 L MCV 78.1 L MCH 28.1 MCHC 35.9 RDW Std Deviation 45.1 H RDW Coeff of Mary 16.0 H Plt Count 401 MPV 8.6 Immature Gran % (Auto) 1.700 H Neut % (Auto) 86.4 H Lymph % (Auto) 3.2 L [place] % (Auto) 8.4 Eos % (Auto) 0.0 Baso % (Auto) 0.3 Absolute Neuts (auto) 28.4 H Absolute Lymphs (auto) 1.07 Absolute Nucleated RBC 0.26 Nucleated RBC % 0.8 Differential Comment SCANNED Diff Path Review December Sodium 128 L Potassium 2.8 L Chloride 95 L Carbon Dioxide 15.0 L Anion Gap 18 H BUN 60 H Creatinine 5.00 H Estim Creat Clear Calc 8.39 Est GFR (MDRD) Af Amer 12 L Est GFR (MDRD) Non-Af 10 L BUN/Creatinine Ratio 12.0 Glucose 134 H Calcium 9.1 Assessment/Plan All Active Problems (Last Updated 02/25/19 @ 14:59 by Idalia Blankenship MD) Rib fractures (Resolved) Acute right-sided thoracic back pain (Resolved) Acute right-sided thoracic back pain (Resolved) Radicular pain of thoracic region (Resolved) Radicular pain of thoracic region (Resolved) Acute renal failure (Acute) Severe dehydration (Acute) Hyponatremia (Acute) Hypokalemia (Acute) Acute kidney failure (Acute) Hypokalemia (Acute) Hyponatremia (Acute) Generalized weakness (Acute) Fatigue (Acute) #1 acute renal failure-possibly secondary to dehydration, patient will be admitted to [facility], she will be given IV fluids, she will be seen in consultation by nephrology, patient will have a renal ultrasound performed, labs will be monitored #2 hypokalemia-patient will be given oral potassium, labs will be monitored #3 severe protein and caloric malnutrition-patient will be seen by nutritional services #4 chronic leukocytosis-patient states this is secondary to her sarcoidosis #5 chronic chest pain due to rib fractures diagnosed on CTA of the chest dated 02/22/2019-patient is on OxyIR as an outpatient, she states that 10 mg is not working, I will increase her OxyIR dose to 15 mg. #6 sarcoidosis #7 bronchiectasis #8 essential hypertension Code Visit Inpatient E&M: 22340 Init Hosp L3
[2019-03-15] MEDS: oxyCODONE 5 MG Tablet 15 MG PO ×2 (19:33→23:33)
--- NOTE | 2019-03-15 19:34 | NURSING ---
Much more awake and alert. asking for pain meds. I asked for pain medication and aint no one give it to me. This nurse gave medication. pt eating dinner at this time and watching tv.
[2019-03-15 20:02] LABS: Bacteria 0 SEEN /hpf (None Seen); Mucous, Urine 0 SEEN /hpf (<or=2+)
[2019-03-15 20:04] LABS: Color, Urine Yellow (Yellow); Glucose, Dipstick Normal (Normal); Ketone-Dipstick 5 mg/dl (Negative); Leukocyte Esterase-Dipstick Negative /ul (Negative); Nitrite-Dipstick Negative (Negative); Occult Blood-Urine 50 /ul (Negative); Protein-Dipstick 500 mg/dl (Negative); Urine Bilirubin Dipstick Negative (Negative); Urine Clarity Clear (Clear); Urine Urobilinogen Normal (Normal)
[2019-03-15 20:14] LABS: Squamous Epithelial Cells - UA 0-5 SEEN /hpf (5-10)
[2019-03-15 20:15] LABS: Red Blood Cells-Urine 0-5 SEEN /hpf (0-5)
[2019-03-15 20:20] LABS: Urine Sodium 24 mmol/L (Not Establ.)
--- NOTE | 2019-03-15 20:53 | NURSING ---
Attempted twice to obtain an IV unsuccessfully. Texted nursing genetic supervisor to try.
[2019-03-15] MEDS: Mirtazapine 30 MG Tablet PO (21:51)
[2019-03-15] MEDS: Heparin Injection (Vial) 5,000 UNIT/ML VIAL 5000 UNIT SC (21:51)
[2019-03-15] MEDS: Atorvastatin Calcium 10 MG Tablet PO (21:52)
[2019-03-16] VITALS (12 sets, daily range): BP systolic 115–157; BP diastolic 67–95; PULSE 71–99; RESP 16–18; TEMP 36.6–37.2; O2SAT 95–99
[2019-03-16] MEDS: oxyCODONE 5 MG Tablet 15 MG PO ×5 (06:06→22:17)
[2019-03-16 06:55] LABS: Anion Gap 11 (5-15); BUN 52 mg/dL (7-18); BUN/Creat Ratio 15.1 RATIO (10-20); Calcium,Total 8.5 mg/dL (8.5-10.1); Chloride 93 mmol/L (98-107); Creatinine, Serum 3.44 mg/dL (0.55-1.02); EST Glomerular Filtration Rate 15 mL/min (>60); Est Glom Filt Rate - Afr Amer 18 mL/min (>60); Estimated Creatinine Clearance 12.59 ml/min; Glucose 133 mg/dL (74-106); Sodium Level 134 mmol/L (136-145)
[2019-03-16 07:49] LABS: Absolute Lymphocyte Count 1.97 X10^3/uL (0.83-4.51); Absolute Neutrophil Count 14.5 X10^3/uL (2.0-7.7); Absolute Nucleated RBC Count 0.07 10^3/uL (0-5); Basophil# 0.09 X10^3/uL; Basophil% 0.5 % (0-1); Eosinophil# 0.24 X10^3/uL; Eosinophils% 1.3 % (0-5); Hematocrit 28.1 % (37-47); Lymphocyte # 1.97 X10^3/ul (4.0); Lymphocyte % 10.3 % (19-41); Mean Corp Hgb Conc 35.6 g/dL (32-36); Mean Corpuscular Hgb 27.5 pg (27.0-32.0); Mean Corpuscular Volume 77.2 fL (81-99); Mean Platelet Vol. 9.2 fl (6.2-12.0); Monocyte# 2.15 X10^3/uL; Monocyte% 11.3 % (0-10); NRBC Flagged by Analyzer 0.4 % (0-5); Neutrophil # 14.47 X10^3/uL (2.7-7.7); Neutrophil % 75.7 % (47-70); POSITIVE DIFFERENTIAL YES; POSITIVE MORPHOLOGY YES; Platelet Count 320 K/mm3 (150-450); RBC Distribution Width CV 15.8 % (11.6-14.6); RBC Distribution Width SD 43.5 fl (35.1-43.9); Red Blood Count 3.64 M/mm3 (4.2-5.4); White Blood Count 19.1 K/mm3 (4.4-11.0)
[2019-03-16 07:50] LABS: Differential Indicated SCAN CRITERIA MET
[2019-03-16 08:23] LABS: Anisocytosis 2+; Differential Comment SCANNED; Hypochromasia 1+; Macrocytosis 1+; Microcytosis 1+; Target Cells 1+
[2019-03-16 08:24] LABS: Anisocytosis 2+; Hypochromasia 1+; Macrocytosis 1+; Microcytosis 1+; Target Cells 1+
[2019-03-16] MEDS: Folic Acid 1 MG Tablet PO (08:24)
[2019-03-16] MEDS: DULoxetine Hcl 60 MG Capsule PO (08:25)
[2019-03-16] MEDS: Gabapentin 100 MG Capsule PO ×2 (08:25→21:24)
[2019-03-16] MEDS: cloNIDine HCl 0.2 MG Tablet PO ×2 (08:25→21:24)
[2019-03-16] MEDS: Metoprolol Tartrate 25 MG Tablet PO ×2 (08:25→21:24)
[2019-03-16] MEDS: amLODIPine 5 MG Tablet PO (08:26)
--- NOTE | 2019-03-16 09:57 | PCM.PROGNOTE ---
Patient Problems: Active and Suspected Problems (Last Updated 02/25/19 @ 14:59 by Idalia Blankenship MD) Acute renal failure (Acute) Severe dehydration (Acute) Hyponatremia (Acute) Hypokalemia (Acute) Acute kidney failure (Acute) Hypokalemia (Acute) Hyponatremia (Acute) Generalized weakness (Acute) Fatigue (Acute) Subjective: Patient was seen and examined today, she states her pain is better controlled on the 15 mg of OxyIR-she requests that her medication can be increased to this when she goes home. I told her it would be up to the discharging doctor. Patient's labs are improved with lower creatinine but she is still hypokalemic. Patient is afebrile, she does not complain of any fever or chills, white blood cell count today was around 19,000. Patient states she does not feel she was eating or drinking enough at home. - Physical Exam General: Alert, Oriented x3, Cooperative, No apparent distress, Well developed HEENT: Atraumatic, PERRLA, EOMI, Normocephalic Oral: Moist Mucosa Neck: Supple, Trachea Midline, Thyroid Normal Size and Texture Lungs: Clear to auscultation, Normal air movement, No rhonchi, No wheeze, No rales Cardiovascular: Regular rate, Regular Rhythm, Normal S1, Normal S2, No murmurs, PMI Normal Abdomen: Bowel Sounds Present, Soft, Non Tender, Non-Distended, - - Colostomy present Extremities: No clubbing, No cyanosis, No edema, Capillary Refill Less than 3 Seconds Skin: No rashes, No breakdown Musculoskeletal: No Tenderness to Palpation of Joints or Extremities, Cachexia, Muscle Wasting Neurological: Cranial nerves II-XII grossly intact, Neuro grossly intact, Sensory exam intact to light touch and pain, Coordination normal Psych/Mental Status: Normal Affect, Appropriate, Alert and oriented to time, place, person, mood and affect Vital Signs Temp Pulse Resp BP Pulse Ox 98.8 F 99 16 157/95 H 99 03/16/19 08:31 03/16/19 08:36 03/16/19 08:31 03/16/19 08:31 03/16/19 08:31 Oxygen Delivery Method Room Air Weight: 42.184 kg Body Mass Index (BMI) 16.9 Finger Stick Blood Glucose 156 Intake and Output for Last 24 Hours 03/14/19 03/15/19 03/16/19 23:59 23:59 23:59 Intake Total 700 / 950 1031 / 1031 Output Total 250 / 450 500 / 500 Balance 450 / 500 531 / 531 Laboratory Tests Past 24 Hrs 03/15/19 03/15/19 03/15/19 09:50 09:50 19:00 WBC 32.9 H* RBC 4.42 Hgb 12.4 Hct 34.5 L MCV 78.1 L MCH 28.1 MCHC 35.9 RDW Std Deviation 45.1 H RDW Coeff of Mary 16.0 H Plt Count 401 MPV 8.6 Immature Gran % (Auto) 1.700 H Neut % (Auto) 86.4 H Lymph % (Auto) 3.2 L [place] % (Auto) 8.4 Eos % (Auto) 0.0 Baso % (Auto) 0.3 Absolute Neuts (auto) 28.4 H Absolute Lymphs (auto) 1.07 Absolute Nucleated RBC 0.26 Nucleated RBC % 0.8 Differential Comment SCANNED Diff Path Review May foll Hypochromasia 1+ Anisocytosis 2+ Microcytosis 1+ Macrocytosis 1+ Target Cells 1+ Sodium 128 L Potassium 2.8 L Chloride 95 L Carbon Dioxide 15.0 L Anion Gap 18 H BUN 60 H Creatinine 5.00 H Estim Creat Clear Calc 8.39 Est GFR (MDRD) Af Amer 12 L Est GFR (MDRD) Non-Af 10 L BUN/Creatinine Ratio 12.0 Glucose 134 H Calcium 9.1 Urine Color Urine Clarity Urine pH Ur Specific [place] Urine Protein Urine Glucose (UA) Urine Ketones Urine Occult Blood Urine Nitrite Urine Bilirubin Urine Urobilinogen Ur Leukocyte Esterase Urine RBC Urine WBC Ur Squamous Epith Cells Urine Bacteria Urine Mucus Ur Random Sodium Urine Creatinine 124.00 03/15/19 03/15/19 03/16/19 19:00 19:00 05:34 WBC RBC Hgb Hct MCV MCH MCHC RDW Std Deviation RDW Coeff of Mary Plt Count MPV Immature Gran % (Auto) Neut % (Auto) Lymph % (Auto) [place] % (Auto) Eos % (Auto) Baso % (Auto) Absolute Neuts (auto) Absolute Lymphs (auto) Absolute Nucleated RBC Nucleated RBC % Differential Comment Diff Path Review Hypochromasia Anisocytosis Microcytosis Macrocytosis Target Cells Sodium 134 L Potassium 3.0 L Chloride 93 L Carbon Dioxide 30.0 Anion Gap 11 BUN 52 H Creatinine 3.44 H Estim Creat Clear Calc 12.59 Est GFR (MDRD) Af Amer 18 L Est GFR (MDRD) Non-Af 15 L BUN/Creatinine Ratio 15.1 Glucose 133 H Calcium 8.5 Urine Color Yellow Urine Clarity Clear Urine pH 6.0 Ur Specific [place] 1.020 Urine Protein 500 H Urine Glucose (UA) Normal Urine Ketones 5 H Urine Occult Blood 50 H Urine Nitrite Negative Urine Bilirubin Negative Urine Urobilinogen Normal Ur Leukocyte Esterase Negative Urine RBC 0-5 SEEN Urine WBC Not Reportable Ur Squamous Epith Cells 0-5 SEEN Urine Bacteria 0 SEEN Urine Mucus 0 SEEN Ur Random Sodium 24 Urine Creatinine 03/16/19 05:34 WBC 19.1 H RBC 3.64 L Hgb 10.0 L Hct 28.1 L MCV 77.2 L MCH 27.5 MCHC 35.6 RDW Std Deviation 43.5 RDW Coeff of Mary 15.8 H Plt Count 320 MPV 9.2 Immature Gran % (Auto) 0.900 Neut % (Auto) 75.7 H Lymph % (Auto) 10.3 L [place] % (Auto) 11.3 H Eos % (Auto) 1.3 Baso % (Auto) 0.5 Absolute Neuts (auto) 14.5 H Absolute Lymphs (auto) 1.97 Absolute Nucleated RBC 0.07 Nucleated RBC % 0.4 Differential Comment SCANNED Diff Path Review Hypochromasia 1+ Anisocytosis 2+ Microcytosis 1+ Macrocytosis 1+ Target Cells 1+ Sodium Potassium Chloride Carbon Dioxide Anion Gap BUN Creatinine Estim Creat Clear Calc Est GFR (MDRD) Af Amer Est GFR (MDRD) Non-Af BUN/Creatinine Ratio Glucose Calcium Urine Color Urine Clarity Urine pH Ur Specific [place] Urine Protein Urine Glucose (UA) Urine Ketones Urine Occult Blood Urine Nitrite Urine Bilirubin Urine Urobilinogen Ur Leukocyte Esterase Urine RBC Urine WBC Ur Squamous Epith Cells Urine Bacteria Urine Mucus Ur Random Sodium Urine Creatinine Medical Necessity - Tobacco Use Smoking Status: Former smoker Tobacco Use: Non-smoker Assessment/Plan All Active Problems (Last Updated 02/25/19 @ 14:59 by Idalia Blankenship MD) Rib fractures (Resolved) Acute right-sided thoracic back pain (Resolved) Acute right-sided thoracic back pain (Resolved) Radicular pain of thoracic region (Resolved) Radicular pain of thoracic region (Resolved) Acute renal failure (Acute) Severe dehydration (Acute) Hyponatremia (Acute) Hypokalemia (Acute) Acute kidney failure (Acute) Hypokalemia (Acute) Hyponatremia (Acute) Generalized weakness (Acute) Fatigue (Acute) #1 acute renal failure-possibly secondary to dehydration, continue IV fluids per nephrology #2 hypokalemia-patient will be given oral potassium, labs will be monitored #3 severe protein and caloric malnutrition-patient will be seen by nutritional services #4 chronic leukocytosis-patient states this is secondary to her sarcoidosis, this is improved from yesterday #5 chronic chest pain due to rib fractures diagnosed on CTA of the chest dated 02/22/2019-patient states that chest pain is better with increased OxyIR. Would recommend that she be discharged home on a higher dose in which she is taking at home. #6 sarcoidosis #7 bronchiectasis #8 essential hypertension-blood pressure is better, I have decided to increase her metoprolol to 25 mg twice daily, patient is not bradycardic, she is on clonidine which can cause bradycardia. Code Visit Inpatient E&M: 62337 Subs Hosp L2
[2019-03-16] MEDS: Heparin Injection (Vial) 5,000 UNIT/ML VIAL 5000 UNIT SC ×2 (10:25→21:23)
[2019-03-16] MEDS: Ipratropium/Albuterol Sulfate 3 ML AMPUL.NEB INHALATION (16:38)
[2019-03-16] MEDS: Atorvastatin Calcium 10 MG Tablet PO (21:24)
[2019-03-16] MEDS: Mirtazapine 30 MG Tablet PO (21:26)
[2019-03-17] VITALS (9 sets, daily range): BP systolic 129–138; BP diastolic 79–100; PULSE 68–86; RESP 16–18; TEMP 36.7–36.9; O2SAT 93–100
[2019-03-17] MEDS: oxyCODONE 5 MG Tablet 15 MG PO ×4 (05:26→19:50)
[2019-03-17 05:48] LABS: Absolute Lymphocyte Count 1.65 X10^3/uL (0.83-4.51); Absolute Neutrophil Count 12.4 X10^3/uL (2.0-7.7); Basophil# 0.06 X10^3/uL; Basophil% 0.4 % (0-1); Eosinophil# 0.24 X10^3/uL; Eosinophils% 1.5 % (0-5); Hematocrit 22.7 % (37-47); Hemoglobin 8.1 g/dL (12.0-15.0); Lymphocyte # 1.65 X10^3/ul (4.0); Lymphocyte % 10.1 % (19-41); Mean Corp Hgb Conc 35.7 g/dL (32-36); Mean Corpuscular Volume 78.5 fL (81-99); Monocyte# 1.86 X10^3/uL; Monocyte% 11.3 % (0-10); NRBC Flagged by Analyzer 0.5 % (0-5); Neutrophil # 12.44 X10^3/uL (2.7-7.7); Neutrophil % 75.7 % (47-70); POSITIVE DIFFERENTIAL YES; Platelet Count 237 K/mm3 (150-450); RBC Distribution Width CV 15.5 % (11.6-14.6); RBC Distribution Width SD 43.8 fl (35.1-43.9); Red Blood Count 2.89 M/mm3 (4.2-5.4); White Blood Count 16.4 K/mm3 (4.4-11.0)
[2019-03-17 06:02] LABS: Differential Indicated SCAN CRITERIA MET
[2019-03-17 06:16] LABS: Anion Gap 7 (5-15); BUN 34 mg/dL (7-18); Calcium,Total 7.7 mg/dL (8.5-10.1); Chloride 109 mmol/L (98-107); Creatinine, Serum 2.13 mg/dL (0.55-1.02); EST Glomerular Filtration Rate 26 mL/min (>60); Est Glom Filt Rate - Afr Amer 31 mL/min (>60); Estimated Creatinine Clearance 20.35 ml/min; Glucose 97 mg/dL (74-106); Sodium Level 138 mmol/L (136-145)
[2019-03-17 06:45] LABS: Differential Comment SCANNED
[2019-03-17] MEDS: cloNIDine HCl 0.2 MG Tablet PO ×2 (07:43→21:11)
[2019-03-17] MEDS: Folic Acid 1 MG Tablet PO (07:43)
[2019-03-17] MEDS: Gabapentin 100 MG Capsule PO ×2 (07:44→21:11)
[2019-03-17] MEDS: DULoxetine Hcl 60 MG Capsule PO (07:44)
[2019-03-17] MEDS: Metoprolol Tartrate 25 MG Tablet PO ×2 (07:47→21:09)
[2019-03-17] MEDS: amLODIPine 5 MG Tablet PO (07:47)
--- NOTE | 2019-03-17 08:26 | PN_ITS ---
Patient Problems: Active and Suspected Problems (Last Updated 02/25/19 @ 14:59 by Idalia Blankenship MD) Acute renal failure (Acute) Severe dehydration (Acute) Hyponatremia (Acute) Hypokalemia (Acute) Acute kidney failure (Acute) Hypokalemia (Acute) Hyponatremia (Acute) Generalized weakness (Acute) Fatigue (Acute) Subjective: Patient is a 53-year-old lady with multiple comorbidities including sarcoidosis sent from PCPs office with progressive generalized weakness. Patient was found to have acute kidney injury with creatinine greater than 5 admitted to regular nursing floor where patient has since been managed. Objective: GENERAL: Frail looking HEENT: Atraumatic; EYES; Anicteric, Normal Conjunctiva NECK; supple, normal thyroid, RESPIRATORY: Diminished to auscultation bilaterally, CARDIOVASCULAR: Regular S1 S2, GI: soft, non-tender, normoactive bowel sounds, : No Renal angle tenderness; EXTREMITIES: No edema, no clubbing, MUSCULOSKELETAL: No Joint Tenderness; NEURO: Awake; no lateralizing signs. SKIN: No Rash PSYCH; Normal affect Vitals/I&O's: Vital Signs Temp Pulse Resp BP Pulse Ox 98.0 F 86 18 133/81 H 93 03/17/19 07:37 03/17/19 07:47 03/17/19 07:37 03/17/19 07:47 03/17/19 07:37 Oxygen Flow Rate (L/min) 3 Oxygen Delivery Method Room Air Weight: 42.2 kg Body Mass Index (BMI) 16.9 Finger Stick Blood Glucose 156 Intake and Output for Last 24 Hours 03/15/19 03/16/19 03/17/19 23:59 23:59 23:59 Intake Total 700 / 950 3823 / 5160 2241 / 2241 Output Total 250 / 450 500 / 1050 1350 / 1350 Balance 450 / 500 3323 / 4110 891 / 891 Laboratory Results 03/17/19 05:16: WBC 16.4 H, RBC 2.89 L, Hgb 8.1 L, Hct 22.7 L, MCV 78.5 L, MCH 28.0, MCHC 35.7, RDW Std Deviation 43.8, RDW Coeff of Mary 15.5 H, Plt Count 237, MPV 9.0, Immature Gran % (Auto) 1.000 H, Neut % (Auto) 75.7 H, Lymph % (Auto) 10.1 L, [place] % (Auto) 11.3 H, Eos % (Auto) 1.5, Baso % (Auto) 0.4, Absolute Neuts (auto) 12.4 H, Absolute Lymphs (auto) 1.65, Absolute Nucleated RBC Pending, Nucleated RBC % 0.5, Differential Comment SCANNED, Diff Path Review [facility] 03/17/19 05:16: Sodium 138, Potassium 4.0, Chloride 109 H, Carbon Dioxide 22.0, Anion Gap 7, BUN 34 H, Creatinine 2.13 H, Estim Creat Clear Calc 20.35, Est GFR (MDRD) Af Amer 31 L, Est GFR (MDRD) Non-Af 26 L, BUN/Creatinine Ratio 16.0, Glucose 97, Calcium 7.7 L Current Medications Albuterol/Ipratropium (Duoneb) 3 ml INHALATION Q4H PRN PRN PRN Reason: DYSPNEA Last Admin: 03/16/19 16:38 Dose: 3 ml Documented by: Amlodipine Besylate (Norvasc) 5 mg PO DAILY [facility] Last Admin: 03/17/19 07:47 Dose: 5 mg Documented by: Atorvastatin Calcium (Lipitor) 10 mg PO QHS [facility] Last Admin: 03/16/19 21:24 Dose: 10 mg Documented by: Clonidine (Catapres) 0.2 mg PO BID [facility] Last Admin: 03/17/19 07:43 Dose: 0.2 mg Documented by: Dextrose (D50w Syringe) 0 gm IV X1 PRN; Protocol PRN Reason: Hypoglycemia Duloxetine HCl (Cymbalta) 60 mg PO DAILY [facility] Last Admin: 03/17/19 07:44 Dose: 60 mg Documented by: Folic Acid (Folic Acid) 1 mg PO DAILY@0800 [facility] Last Admin: 03/17/19 07:43 Dose: 1 mg Documented by: Gabapentin (Neurontin) 100 mg PO BID [facility] Last Admin: 03/17/19 07:44 Dose: 100 mg Documented by: Glucagon () 1 mg IM .X1 PRN PRN Reason: Hypoglycemia Heparin Sodium (Porcine) (Heparin Na) 5,000 unit SC Q12 [facility] Last Admin: 03/16/19 21:23 Dose: 5,000 unit Documented by: Potassium Chloride/Sodium Chloride () 1,000 mls @ 150 mls/hr IV .Q6H40M [facility] Last Admin: 03/17/19 05:26 Dose: 150 mls/hr Documented by: Labetalol HCl (Trandate) 10 mg IV Q4H PRN PRN PRN Reason: Hypertensive Emergency Metoprolol Tartrate (Lopressor (Beta Carine)) 25 mg PO BID [facility] Last Admin: 03/17/19 07:47 Dose: 25 mg Documented by: Mirtazapine (Remeron) 30 mg PO QHS [facility] Last Admin: 03/16/19 21:26 Dose: 30 mg Documented by: Nutritional Formula (Lactose Free) (Ensure Enlive) 120 ml PO 4X/DAY [facility] Last Admin: 03/17/19 07:47 Dose: 120 ml Documented by: Oxycodone HCl (Oxyir) 15 mg PO Q4H PRN PRN PRN Reason: SEVERE PAIN (6-10/10) Last Admin: 03/17/19 05:26 Dose: 15 mg Documented by: Sodium Chloride () 10 - 40 ml IV UD PRN PRN Reason: SALINE FLUSH Tizanidine HCl (Zanaflex) 2 - 4 mg PO BID PRN PRN PRN Reason: muscle spasms Medical Necessity - Tobacco Use Smoking Status: Former smoker Tobacco Use: Non-smoker Assessment/Plan All Active Problems (Last Updated 02/25/19 @ 14:59 by Idalia Blankenship MD) Rib fractures (Resolved) Acute right-sided thoracic back pain (Resolved) Acute right-sided thoracic back pain (Resolved) Radicular pain of thoracic region (Resolved) Radicular pain of thoracic region (Resolved) Acute renal failure (Acute) Severe dehydration (Acute) Hyponatremia (Acute) Hypokalemia (Acute) Acute kidney failure (Acute) Hypokalemia (Acute) Hyponatremia (Acute) Generalized weakness (Acute) Fatigue (Acute) Patient is a 53-year-old lady admitted with acute kidney injury 1. Acute kidney injury: Attributed to combination of factors including medications as well as suspected dehydration. Patient was on Bactrim, losartan as well as Lasix the suspected offending medications held admitted to regular nursing floor where patient has been managed with fluids and the ultrasound obtained did not demonstrate any hydronephrosis 2. Sarcoidosis patient is a leflunomide as well as Bactrim for pneumonia prophylaxis Bactrim held in view of impaired kidney function 3. Moderate persistent asthma with frequent exacerbations did continue with patient aerosol treatment 4. Hypertension patient was on losartan HCTZ and clonidine losartan and HCTZ held 5. History of recent intestinal obstruction status post ileostomy 6. Chronic hypoxic respiratory failure due to sarcoidosis: On 3 L of oxygen which is her baseline. 9. Severe protein-calorie malnutrtion: Evidenced by decreased energy level as well as BMI of 17 consult placed to dietitian 10. Rib ractures did encourage the use of incentive spirometer 7. DVT prophylaxis SC heparin Active Medications Albuterol/Ipratropium (Duoneb) 3 ml INHALATION Q4H PRN PRN PRN Reason: DYSPNEA Last Admin: 03/16/19 16:38 Dose: 3 ml Documented by: Amlodipine Besylate (Norvasc) 5 mg PO DAILY [facility] Last Admin: 03/17/19 07:47 Dose: 5 mg Documented by: Atorvastatin Calcium (Lipitor) 10 mg PO QHS [facility] Last Admin: 03/16/19 21:24 Dose: 10 mg Documented by: Clonidine (Catapres) 0.2 mg PO BID [facility] Last Admin: 03/17/19 07:43 Dose: 0.2 mg Documented by: Dextrose (D50w Syringe) 0 gm IV X1 PRN; Protocol PRN Reason: Hypoglycemia Duloxetine HCl (Cymbalta) 60 mg PO DAILY [facility] Last Admin: 03/17/19 07:44 Dose: 60 mg Documented by: Folic Acid (Folic Acid) 1 mg PO DAILY@0800 [facility] Last Admin: 03/17/19 07:43 Dose: 1 mg Documented by: Gabapentin (Neurontin) 100 mg PO BID [facility] Last Admin: 03/17/19 07:44 Dose: 100 mg Documented by: Glucagon () 1 mg IM .X1 PRN PRN Reason: Hypoglycemia Heparin Sodium (Porcine) (Heparin Na) 5,000 unit SC Q12 [facility] Last Admin: 03/16/19 21:23 Dose: 5,000 unit Documented by: Potassium Chloride/Sodium Chloride () 1,000 mls @ 150 mls/hr IV .Q6H40M [facility] Last Admin: 03/17/19 05:26 Dose: 150 mls/hr Documented by: Labetalol HCl (Trandate) 10 mg IV Q4H PRN PRN PRN Reason: Hypertensive Emergency Metoprolol Tartrate (Lopressor (Beta Carine)) 25 mg PO BID [facility] Last Admin: 03/17/19 07:47 Dose: 25 mg Documented by: Mirtazapine (Remeron) 30 mg PO QHS [facility] Last Admin: 03/16/19 21:26 Dose: 30 mg Documented by: Nutritional Formula (Lactose Free) (Ensure Enlive) 120 ml PO 4X/DAY [facility] Last Admin: 03/17/19 07:47 Dose: 120 ml Documented by: Oxycodone HCl (Oxyir) 15 mg PO Q4H PRN PRN PRN Reason: SEVERE PAIN (6-10/10) Last Admin: 03/17/19 05:26 Dose: 15 mg Documented by: Sodium Chloride () 10 - 40 ml IV UD PRN PRN Reason: SALINE FLUSH Tizanidine HCl (Zanaflex) 2 - 4 mg PO BID PRN PRN PRN Reason: muscle spasms Clinical Impression(s) from Imaging Studies Renal Ultrasound 03/15/19 11:03 IMPRESSION: 1. No hydronephrosis. 2. Bilateral renal atrophy is new since 2014. Electronically Signed: Steven Martinez MD at 11:48 EDT , Service support , Code Visit Inpatient E&M: 63599 Subs Hosp L2
[2019-03-17] MEDS: Ipratropium/Albuterol Sulfate 3 ML AMPUL.NEB INHALATION (09:09)
[2019-03-17] MEDS: Heparin Injection (Vial) 5,000 UNIT/ML VIAL 5000 UNIT SC ×2 (09:50→21:10)
--- NOTE | 2019-03-17 10:44 | CASEMGMT ---
RN CM Assessment Readmission Note Previous admission: 02/25/19-03/01/19 Presentation: Rib FX/pneumonia. Discharged on pain medication/antibiotic. DC disposition: Home with [facility]. F/U: Pt had appt with Dr. Seras on 03/05/19. Current Admission Presentation: Acute Renal Failure secondary to dehydration. Nephrology consult, hypokalemia. Pt states she has lost ~11# past 1-2 weeks. [employer] consult. PCP: Dr. John Sears, Specialists: Dr. Cook, nephrology, [facility] physician for tx of sarcoidosis. Preferred Pharmacy: [facility] Insurance: [employer] Prescription Benefit: yes *See previous RN CM assessment for details. HHC: [facility]. Notified of admission. Pt had RN services only. PH: FX: Patient DC goals: home DC PLAN: undetermined. Home on discharge with resumption of [facility] if able. PT/OT evaluations pending. Sera ORDOÑEZN RN ACM
--- NOTE | 2019-03-17 11:11 | PCM.PN.REN ---
Patient Problems: Active and Suspected Problems (Last Updated 02/25/19 @ 14:59 by Idalia Blankenship MD) Acute renal failure (Acute) Severe dehydration (Acute) Hyponatremia (Acute) Hypokalemia (Acute) Acute kidney failure (Acute) Hypokalemia (Acute) Hyponatremia (Acute) Generalized weakness (Acute) Fatigue (Acute) Subjective: no new complaints - Physical Exam General: Alert - ileostmy, Oriented x3, Cooperative HEENT: Atraumatic, PERRLA, EOMI, Normocephalic Neck: Supple, No JVD, Negative Carotid Bruits Lungs: Clear to auscultation, Normal air movement Cardiovascular: Regular rate, No murmurs Abdomen: Bowel Sounds Present, Soft, Non Tender Extremities: No edema, Capillary Refill Less than 3 Seconds Skin: No rashes, No breakdown Musculoskeletal: No Tenderness to Palpation of Joints or Extremities Neurological: Cranial nerves II-XII grossly intact Psych/Mental Status: Normal Affect, Appropriate Vital Signs Temp Pulse Resp BP Pulse Ox 98.0 F 86 16 133/81 H 99 03/17/19 07:37 03/17/19 09:10 03/17/19 09:10 03/17/19 07:47 03/17/19 09:10 Oxygen Flow Rate (L/min) 3 Oxygen Delivery Method Nasal Cannula Weight: 42.2 kg Body Mass Index (BMI) 16.9 Finger Stick Blood Glucose 156 Intake and Output for Last 24 Hours 03/15/19 03/16/19 03/17/19 23:59 23:59 23:59 Intake Total 700 / 950 3823 / 5160 2241 / 2241 Output Total 250 / 450 500 / 1050 1350 / 1350 Balance 450 / 500 3323 / 4110 891 / 891 Laboratory Tests Past 24 Hrs 03/17/19 03/17/19 05:16 05:16 WBC 16.4 H RBC 2.89 L Hgb 8.1 L Hct 22.7 L MCV 78.5 L MCH 28.0 MCHC 35.7 RDW Std Deviation 43.8 RDW Coeff of Mary 15.5 H Plt Count 237 MPV 9.0 Immature Gran % (Auto) 1.000 H Neut % (Auto) 75.7 H Lymph % (Auto) 10.1 L [place] % (Auto) 11.3 H Eos % (Auto) 1.5 Baso % (Auto) 0.4 Absolute Neuts (auto) 12.4 H Absolute Lymphs (auto) 1.65 Absolute Nucleated RBC Pending Nucleated RBC % 0.5 Differential Comment SCANNED Diff Path Review May foll Sodium 138 Potassium 4.0 Chloride 109 H Carbon Dioxide 22.0 Anion Gap 7 BUN 34 H Creatinine 2.13 H Estim Creat Clear Calc 20.35 Est GFR (MDRD) Af Amer 31 L Est GFR (MDRD) Non-Af 26 L BUN/Creatinine Ratio 16.0 Glucose 97 Calcium 7.7 L Medical Necessity - Tobacco Use Smoking Status: Former smoker Tobacco Use: Non-smoker Assessment/Plan All Active Problems (Last Updated 02/25/19 @ 14:59 by Idalia Blankenship MD) Rib fractures (Resolved) Acute right-sided thoracic back pain (Resolved) Acute right-sided thoracic back pain (Resolved) Radicular pain of thoracic region (Resolved) Radicular pain of thoracic region (Resolved) Acute renal failure (Acute) Severe dehydration (Acute) Hyponatremia (Acute) Hypokalemia (Acute) Acute kidney failure (Acute) Hypokalemia (Acute) Hyponatremia (Acute) Generalized weakness (Acute) Fatigue (Acute) 1-acute kidney injury. Normal creatinine at baseline. likely acute kidney injury is prerenal from dehydration versus ATN. creatinine steadily improving renal USG with no hydronephrosis 3-[id number]-GI loss. better 3-hyponatremia. Also from GI loss and dehydration with poor oral intake. better 4. HTN. bp is ok now overall better. no signs of volume overload. off fluids now and tolerating PO well
[2019-03-17 14:28] LABS: Pathologist Review Reviewed
[2019-03-17 14:31] LABS: Pathologist Review Reviewed
[2019-03-17] MEDS: Loratadine 10 MG Tablet PO ×2 (17:14)
[2019-03-17] MEDS: tiZANidine HCl 2 MG Tablet PO (19:54)
[2019-03-17] MEDS: Atorvastatin Calcium 10 MG Tablet PO (21:11)
[2019-03-17] MEDS: Menthol/Lanolin/Calamine/Znox 113 GM Tube 1 APPLIC TOPICAL (21:12)
[2019-03-17] MEDS: Mirtazapine 30 MG Tablet PO (21:13)
[2019-03-18 02:30] VITALS: BP 119/71; PULSE 75; RESP 16; TEMP 37; O2SAT 96
[2019-03-18] MEDS: oxyCODONE 5 MG Tablet 15 MG PO ×3 (03:09→10:58)
[2019-03-18] MEDS: tiZANidine HCl 2 MG Tablet PO (07:04)
[2019-03-18 07:28] VITALS: O2SAT 96
[2019-03-18 08:19] LABS: Absolute Lymphocyte Count 2.23 X10^3/uL (0.83-4.51); Absolute Neutrophil Count 12.3 X10^3/uL (2.0-7.7); Basophil# 0.06 X10^3/uL; Basophil% 0.3 % (0-1); Eosinophil# 0.41 X10^3/uL; Eosinophils% 2.4 % (0-5); Hematocrit 21.8 % (37-47); Hemoglobin 7.4 g/dL (12.0-15.0); Lymphocyte # 2.23 X10^3/ul (4.0); Mean Corp Hgb Conc 33.9 g/dL (32-36); Mean Corpuscular Hgb 27.2 pg (27.0-32.0); Mean Corpuscular Volume 80.1 fL (81-99); Mean Platelet Vol. 8.6 fl (6.2-12.0); Monocyte# 2.09 X10^3/uL; Monocyte% 12.2 % (0-10); NRBC Flagged by Analyzer 0.2 % (0-5); Neutrophil # 12.28 X10^3/uL (2.7-7.7); Neutrophil % 71.4 % (47-70); POSITIVE DIFFERENTIAL YES; Platelet Count 205 K/mm3 (150-450); RBC Distribution Width SD 46.3 fl (35.1-43.9); Red Blood Count 2.72 M/mm3 (4.2-5.4); White Blood Count 17.2 K/mm3 (4.4-11.0)
[2019-03-18 08:24] LABS: Differential Indicated SCAN CRITERIA MET
[2019-03-18 08:59] VITALS: PULSE 79
[2019-03-18] MEDS: DULoxetine Hcl 60 MG Capsule PO (08:59)
[2019-03-18] MEDS: Gabapentin 100 MG Capsule PO (08:59)
[2019-03-18] MEDS: amLODIPine 5 MG Tablet PO (08:59)
[2019-03-18] MEDS: cloNIDine HCl 0.2 MG Tablet PO (08:59)
[2019-03-18] MEDS: Metoprolol Tartrate 25 MG Tablet PO (08:59)
[2019-03-18] MEDS: Folic Acid 1 MG Tablet PO (08:59)
[2019-03-18] MEDS: Heparin Injection (Vial) 5,000 UNIT/ML VIAL 5000 UNIT SC (09:00)
[2019-03-18] MEDS: Menthol/Lanolin/Calamine/Znox 113 GM Tube 1 APPLIC TOPICAL (09:00)
[2019-03-18 09:02] VITALS: BP 143/92; PULSE 74; RESP 18; TEMP 37.1; O2SAT 97
[2019-03-18] MEDS: guaiFENesin 1,200 MG Tablet 1200 MG PO (09:13)
[2019-03-18 09:18] LABS: Anion Gap 7 (5-15); BUN 21 mg/dL (7-18); BUN/Creat Ratio 15.4 RATIO (10-20); Calcium,Total 7.3 mg/dL (8.5-10.1); Chloride 114 mmol/L (98-107); Creatinine, Serum 1.36 mg/dL (0.55-1.02); EST Glomerular Filtration Rate 43 mL/min (>60); Est Glom Filt Rate - Afr Amer 52 mL/min (>60); Estimated Creatinine Clearance 31.87 ml/min; Glucose 121 mg/dL (74-106); Magnesium 0.9 mg/dL (1.6-2.6); Potassium 4.9 mmol/L (3.5-5.1); Sodium Level 140 mmol/L (136-145)
--- NOTE | 2019-03-18 09:30 | PCM.PN.HOSP ---
Patient Problems: Active and Suspected Problems (Last Updated 02/25/19 @ 14:59 by Idalia Blankenship MD) Acute renal failure (Acute) Severe dehydration (Acute) Hyponatremia (Acute) Hypokalemia (Acute) Acute kidney failure (Acute) Hypokalemia (Acute) Hyponatremia (Acute) Generalized weakness (Acute) Fatigue (Acute) Subjective: Patient seen clinical condition continues to improve. Creatinine down to 1.36 magnesium is 0.9 repletion initiated Objective: GENERAL: Frail looking HEENT: Atraumatic; EYES; Anicteric, Normal Conjunctiva NECK; supple, normal thyroid, RESPIRATORY: Diminished to auscultation bilaterally, CARDIOVASCULAR: Regular S1 S2, GI: soft, non-tender, normoactive bowel sounds, : No Renal angle tenderness; EXTREMITIES: No edema, no clubbing, MUSCULOSKELETAL: No Joint Tenderness; NEURO: Awake; no lateralizing signs. SKIN: No Rash PSYCH; Normal affect Vitals/I&O's: Vital Signs Temp Pulse Resp BP Pulse Ox 98.7 F 74 18 143/92 H 97 03/18/19 09:02 03/18/19 09:02 03/18/19 09:02 03/18/19 09:02 03/18/19 09:02 Oxygen Flow Rate (L/min) 2 Oxygen Delivery Method Room Air Weight: 42.2 kg Body Mass Index (BMI) 16.9 Finger Stick Blood Glucose 156 Intake and Output for Last 24 Hours 03/16/19 03/17/19 03/18/19 23:59 23:59 23:59 Intake Total 3823 / 5160 4101 / 5442 1581 / 1581 Output Total 500 / 1050 1651 / 2151 700 / 700 Balance 3323 / 4110 2450 / 3291 881 / 881 Laboratory Results 03/15/19 09:50: Diff Path Review Reviewed 03/17/19 05:16: Diff Path Review Reviewed 03/18/19 08:02: WBC 17.2 H, RBC 2.72 L, Hgb 7.4 L, Hct 21.8 L, MCV 80.1 L, MCH 27.2, MCHC 33.9, RDW Std Deviation 46.3 H, RDW Coeff of Mary 16.0 H, Plt Count 205, MPV 8.6, Immature Gran % (Auto) 0.700, Neut % (Auto) 71.4 H, Lymph % (Auto) 13.0 L, [place] % (Auto) 12.2 H, Eos % (Auto) 2.4, Baso % (Auto) 0.3, Absolute Neuts (auto) 12.3 H, Absolute Lymphs (auto) 2.23, Nucleated RBC % 0.2 03/18/19 08:02: Sodium 140, Potassium 4.9, Chloride 114 H, Carbon Dioxide 19.0 L, Anion Gap 7, BUN 21 H, Creatinine 1.36 H, Estim Creat Clear Calc 31.87, Est GFR (MDRD) Af Amer 52 L, Est GFR (MDRD) Non-Af 43 L, BUN/Creatinine Ratio 15.4, Glucose 121 H, Calcium 7.3 L, Magnesium 0.9 L* Current Medications Albuterol/Ipratropium (Duoneb) 3 ml INHALATION Q4H PRN PRN PRN Reason: DYSPNEA Last Admin: 03/17/19 09:09 Dose: 3 ml Documented by: Amlodipine Besylate (Norvasc) 5 mg PO DAILY [facility] Last Admin: 03/18/19 08:59 Dose: 5 mg Documented by: Atorvastatin Calcium (Lipitor) 10 mg PO QHS [facility] Last Admin: 03/17/19 21:11 Dose: 10 mg Documented by: Calamine/Phenol (Calmoseptine Ointment) 1 applic TOPICAL BID [facility]; Protocol Last Admin: 03/18/19 09:00 Dose: 1 applicatio Documented by: Clonidine (Catapres) 0.2 mg PO BID [facility] Last Admin: 03/18/19 08:59 Dose: 0.2 mg Documented by: Dextrose (D50w Syringe) 0 gm IV X1 PRN; Protocol PRN Reason: Hypoglycemia Duloxetine HCl (Cymbalta) 60 mg PO DAILY [facility] Last Admin: 03/18/19 08:59 Dose: 60 mg Documented by: Folic Acid (Folic Acid) 1 mg PO DAILY@0800 [facility] Last Admin: 03/18/19 08:59 Dose: 1 mg Documented by: Gabapentin (Neurontin) 100 mg PO BID [facility] Last Admin: 03/18/19 08:59 Dose: 100 mg Documented by: Glucagon () 1 mg IM .X1 PRN PRN Reason: Hypoglycemia Guaifenesin (Mucinex) 1,200 mg PO BID [facility] Last Admin: 03/18/19 09:13 Dose: 1,200 mg Documented by: Heparin Sodium (Porcine) (Heparin Na) 5,000 unit SC Q12 [facility] Last Admin: 03/18/19 09:00 Dose: 5,000 unit Documented by: Potassium Chloride/Sodium Chloride () 1,000 mls @ 150 mls/hr IV .Q6H40M [facility] Last Admin: 03/18/19 09:13 Dose: 150 mls/hr Documented by: Magnesium Sulfate 2 gm/ (Dextrose) 104 mls @ 52 mls/hr IV X1 ONE Stop: 03/18/19 11:28 Labetalol HCl (Trandate) 10 mg IV Q4H PRN PRN PRN Reason: Hypertensive Emergency Loratadine (Claritin) 10 mg PO DAILY [facility] Last Admin: 03/17/19 17:14 Dose: 10 mg Documented by: Magnesium Oxide (Mag-Ox 400) [facility] Metoprolol Tartrate (Lopressor (Beta Carine)) 25 mg PO BID [facility] Last Admin: 03/18/19 08:59 Dose: 25 mg Documented by: Mirtazapine (Remeron) 30 mg PO QHS [facility] Last Admin: 03/17/19 21:13 Dose: 30 mg Documented by: Nutritional Formula (Lactose Free) (Ensure Enlive) 120 ml PO 4X/DAY [facility] Last Admin: 03/18/19 09:01 Dose: 120 ml Documented by: Oxycodone HCl (Oxyir) 15 mg PO Q4H PRN PRN PRN Reason: SEVERE PAIN (6-10/10) Last Admin: 03/18/19 06:58 Dose: 15 mg Documented by: Sodium Chloride () 10 - 40 ml IV UD PRN PRN Reason: SALINE FLUSH Tizanidine HCl (Zanaflex) 2 - 4 mg PO BID PRN PRN PRN Reason: muscle spasms Last Admin: 03/18/19 07:04 Dose: 2 mg Documented by: Medical Necessity - Tobacco Use Smoking Status: Former smoker Tobacco Use: Non-smoker Assessment/Plan All Active Problems (Last Updated 02/25/19 @ 14:59 by Idalia Blankenship MD) Rib fractures (Resolved) Acute right-sided thoracic back pain (Resolved) Acute right-sided thoracic back pain (Resolved) Radicular pain of thoracic region (Resolved) Radicular pain of thoracic region (Resolved) Acute renal failure (Acute) Severe dehydration (Acute) Hyponatremia (Acute) Hypokalemia (Acute) Acute kidney failure (Acute) Hypokalemia (Acute) Hyponatremia (Acute) Generalized weakness (Acute) Fatigue (Acute) Patient is a 53-year-old lady admitted with acute kidney injury 1. Acute kidney injury: Attributed to combination of factors including medications as well as suspected dehydration. Patient was on Bactrim, losartan as well as Lasix the suspected offending medications held admitted to regular nursing floor where patient has been managed with fluids and the ultrasound obtained did not demonstrate any hydronephrosis ~03/18/2019. Patient kidney function continues to improve 2. Sarcoidosis patient is a leflunomide as well as Bactrim for pneumonia prophylaxis Bactrim held in view of impaired kidney function 3. Moderate persistent asthma with frequent exacerbations did continue with patient aerosol treatment 4. Hypertension patient was on losartan HCTZ and clonidine losartan and HCTZ held 5. History of recent intestinal obstruction status post ileostomy 6. Chronic hypoxic respiratory failure due to sarcoidosis: On 3 L of oxygen which is her baseline. 9. Severe protein-calorie malnutrtion: Evidenced by decreased energy level as well as BMI of 17 consult placed to dietitian 10. Rib Fractures did encourage the use of incentive spirometer 11. Hypomagnesemia corrected per protocol 12. DVT prophylaxis SC heparin Code Visit Inpatient E&M: 15195 Subs Hosp L2
--- NOTE | 2019-03-18 10:16 | NURSING ---
Pt requesting that her ileostomy appliance be changed. patient normally changes her own appliance, but patient states I like how you do it better. removed appliance. stoma is well budded and pink. stoma measures approx 7/8. peristomal skin is intact. cleansed peristomal skin with warm water. pat dry. new appliance placed with an [employer] ring. pt tolerated well.
[2019-03-18 14:25] VITALS: BP 147/100; PULSE 57; RESP 18; TEMP 36.9; O2SAT 98
[2019-03-18 15:30] LABS: Anion Gap 7 (5-15); BUN 20 mg/dL (7-18); BUN/Creat Ratio 14.9 RATIO (10-20); Chloride 111 mmol/L (98-107); Creatinine, Serum 1.34 mg/dL (0.55-1.02); EST Glomerular Filtration Rate 44 mL/min (>60); Est Glom Filt Rate - Afr Amer 53 mL/min (>60); Estimated Creatinine Clearance 32.35 ml/min; Glucose 118 mg/dL (74-106); Magnesium 1.7 mg/dL (1.6-2.6); Potassium 4.9 mmol/L (3.5-5.1); Sodium Level 137 mmol/L (136-145)
--- NOTE | 2019-03-18 15:45 | DCINST_ITS ---
- Discharge Diagnoses Current Active Problems: Current Active and Chronic Problems (Last Updated 02/25/19 @ 14:59 by Idalia Blankenship MD) Acute renal failure (Acute) Severe dehydration (Acute) Hyponatremia (Acute) Hypokalemia (Acute) Acute kidney failure (Acute) Hypokalemia (Acute) Hyponatremia (Acute) Generalized weakness (Acute) Fatigue (Acute) Leukocytosis (Chronic) Sarcoidosis (Chronic) You will use the following diet at home:: No restrictions Discharge Activity: Return to Normal Activity Allergies/Adverse Reactions: Allergies cephalexin monohydrate [From Keflex] Allergy (Mild, Verified 03/15/19 09:03) Itching doxycycline Adverse Reaction (Verified 03/15/19 09:03) Vomiting moxifloxacin HCl [From Avelox] Adverse Reaction (Verified 03/15/19 09:03) Vomiting Medications to take at Discharge Albuterol Aerosols [Ventolin Aerosols] 2.5 mg INHALATION Q2H PRN PRN 08/13/17 Magnesium 400 mg PO BID 12/28/18 Magnesium Hydroxide [Milk Of Magnesia] 30 ml PO DAILY PRN PRN 12/28/18 Metoprolol Tartrate 25 mg PO DAILY 12/28/18 Tizanidine HCl [Zanaflex] 2 - 4 mg PO BID PRN PRN 12/28/18 Albuterol Inhaler [Ventolin Hfa] 1 - 2 puff INHALATION Q4H PRN PRN 02/25/19 Atorvastatin Calcium 10 mg PO QHS 02/25/19 Benzonatate [Tessalon Perle] 100 mg PO TID 02/25/19 Duloxetine HCl 60 mg PO DAILY 02/25/19 Fluticasone Propionate [Flonase Allergy Relief] 2 spray IH DAILY 02/25/19 Folic Acid 1 mg PO DAILY@0800 02/25/19 Gabapentin 300 mg PO BID 02/25/19 Gabapentin 600 mg PO QHS 02/25/19 Guaifenesin [Mucinex] 600 mg PO BID 02/25/19 Ipratropium [Atrovent Inhaler] 1 puff INHALATION Q6H PRN PRN 02/25/19 Loperamide HCl [Imodium A-D] 2 mg PO PRN PRN 02/25/19 Mirtazapine [Remeron] 30 mg PO QHS 07/09/19 Oxycodone HCl 10 mg PO Q4H PRN PRN 02/25/19 Potassium Citrate [Potassium Citrate ER] 5 meq PO DAILY 02/25/19 Amlodipine [Norvasc] 5 mg PO DAILY #30 tab 03/18/19 Clonidine HCl 0.2 mg PO BID #60 tab 03/18/19 The following prescriptions were given: Clonidine HCl 0.2 mg PO BID #60 tab Transmission Status: Pending to [facility] #30 Amlodipine [Norvasc] 5 mg PO DAILY #30 tab Transmission Status: Pending to [facility] #30 Primary Care Physician: John Sears MD [Primary Care Provider] - Please follow up with your Primary Care Physician in: in 5-7 days Test Results: Test results from this visit will be discussed in further detail at your follow- up appointment, if applicable. Please Follow Up With: Yecenia Azevedo MD When: in 1-2 weeks Proposed Discharge Date: 03/18/19
--- NOTE | 2019-03-18 15:46 | PCM.DC.SUM ---
Discharge Date and Diagnosis - Problem List Patient Problems: Active and Suspected Problems (Last Updated 02/25/19 @ 14:59 by Idalia Blankenship MD) Acute renal failure (Acute) Severe dehydration (Acute) Hyponatremia (Acute) Hypokalemia (Acute) Acute kidney failure (Acute) Hypokalemia (Acute) Hyponatremia (Acute) Generalized weakness (Acute) Fatigue (Acute) Date of Admission: 03/15/19 Date of Discharge: 03/18/19 - Primary Discharge Diagnosis Active and Suspected Problems (Last Updated 02/25/19 @ 14:59 by Idalia Blankenship MD) Acute renal failure (Acute) Severe dehydration (Acute) Hyponatremia (Acute) Hypokalemia (Acute) Acute kidney failure (Acute) Hypokalemia (Acute) Hyponatremia (Acute) Generalized weakness (Acute) Fatigue (Acute) - Secondary Discharge Diagnosis Chronic Problems (Last Updated 02/25/19 @ 14:59 by Idalia Blankenship MD) Chronic respiratory failure (Chronic) Bronchiectasis (Chronic) Asthma (Chronic) COPD (chronic obstructive pulmonary disease) (Chronic) Chronic pain (Chronic) Leukocytosis (Chronic) HTN (hypertension) (Chronic) Sarcoidosis (Chronic) Hospital Course and Treatment Consultations 03/17/19 17:32 Consult: Onc/Wound/patient safety coordinator Routine Comment: Reason for Consult:: OPEN AREA COCCYX Comments:: CALMOSEPTINE ORDERED Operations: None Summary of Care Provided: Patient is a 53-year-old lady admitted with acute kidney injury 1. Acute kidney injury: Attributed to combination of factors including medications as well as suspected dehydration. Patient was on Bactrim, losartan as well as Lasix the suspected offending medications held admitted to regular nursing floor where patient has been managed with fluids and the ultrasound obtained did not demonstrate any hydronephrosis she was seen in consultation by Dr. Caruso agree with nephrology's note and recommendations reviewed 2. Sarcoidosis patient is a leflunomide as well as Bactrim for pneumonia prophylaxis Bactrim held in view of impaired kidney function 3. Moderate persistent asthma with frequent exacerbations did continue with patient aerosol treatment 4. Hypertension patient was on losartan and Lasix discontinued during patient hospitalization. Patient had a wrist prescription written for amlodipine. Was also on clonidine did continue 5. History of recent intestinal obstruction status post ileostomy 6. Chronic hypoxic respiratory failure due to sarcoidosis: On 3 L of oxygen which is her baseline. 9. Severe protein-calorie malnutrtion: Evidenced by decreased energy level as well as BMI of 17 consult placed to dietitian 10. Rib Fractures did encourage the use of incentive spirometer 11. Hypomagnesemia corrected per protocol 12. DVT prophylaxis SC heparin Patient Problems: Active and Suspected Problems (Last Updated 02/25/19 @ 14:59 by Idalia Blankenship MD) Acute renal failure (Acute) Severe dehydration (Acute) Hyponatremia (Acute) Hypokalemia (Acute) Acute kidney failure (Acute) Hypokalemia (Acute) Hyponatremia (Acute) Generalized weakness (Acute) Fatigue (Acute) Objective: GENERAL: Frail looking HEENT: Atraumatic; EYES; Anicteric, Normal Conjunctiva NECK; supple, normal thyroid, RESPIRATORY: Diminished to auscultation bilaterally, CARDIOVASCULAR: Regular S1 S2, GI: soft, non-tender, normoactive bowel sounds, : No Renal angle tenderness; NEURO: Awake; no lateralizing signs. SKIN: No Rash PSYCH; Normal affect - Physical Exam Vital Signs Temp Pulse Resp BP Pulse Ox 98.5 F 57 L 18 147/100 H 98 03/18/19 14:25 03/18/19 14:25 03/18/19 14:25 03/18/19 14:25 03/18/19 14:25 Oxygen Flow Rate (L/min) 2 Oxygen Delivery Method Room Air Weight: 42.2 kg Body Mass Index (BMI) 16.9 Finger Stick Blood Glucose 156 Intake and Output for Last 24 Hours 03/16/19 03/17/19 03/18/19 23:59 23:59 23:59 Intake Total 3823 / 5160 4101 / 5442 3059 / 3059 Output Total 500 / 1050 1651 / 2151 700 / 700 Balance 3323 / 4110 2450 / 3291 2359 / 2359 Laboratory Tests Past 24 Hrs 03/18/19 03/18/19 03/18/19 08:02 08:02 15:07 WBC 17.2 H RBC 2.72 L Hgb 7.4 L Hct 21.8 L MCV 80.1 L MCH 27.2 MCHC 33.9 RDW Std Deviation 46.3 H RDW Coeff of Mary 16.0 H Plt Count 205 MPV 8.6 Immature Gran % (Auto) 0.700 Neut % (Auto) 71.4 H Lymph % (Auto) 13.0 L [place] % (Auto) 12.2 H Eos % (Auto) 2.4 Baso % (Auto) 0.3 Absolute Neuts (auto) 12.3 H Absolute Lymphs (auto) 2.23 Nucleated RBC % 0.2 Sodium 140 137 Potassium 4.9 4.9 Chloride 114 H 111 H Carbon Dioxide 19.0 L 19.0 L Anion Gap 7 7 BUN 21 H 20 H Creatinine 1.36 H 1.34 H Estim Creat Clear Calc 31.87 32.35 Est GFR (MDRD) Af Amer 52 L 53 L Est GFR (MDRD) Non-Af 43 L 44 L BUN/Creatinine Ratio 15.4 14.9 Glucose 121 H 118 H Calcium 7.3 L 8.0 L Magnesium 0.9 L* 1.7 Discharge Diet: No Restrictions Discharge Activity: Return to Normal Activity Home Medications: Medications to take at Discharge Albuterol Aerosols [Ventolin Aerosols] 2.5 mg INHALATION Q2H PRN PRN 08/13/17 Magnesium 400 mg PO BID 12/28/18 Magnesium Hydroxide [Milk Of Magnesia] 30 ml PO DAILY PRN PRN 12/28/18 Metoprolol Tartrate 25 mg PO DAILY 12/28/18 Tizanidine HCl [Zanaflex] 2 - 4 mg PO BID PRN PRN 12/28/18 Albuterol Inhaler [Ventolin Hfa] 1 - 2 puff INHALATION Q4H PRN PRN 02/25/19 Atorvastatin Calcium 10 mg PO QHS 02/25/19 Benzonatate [Tessalon Perle] 100 mg PO TID 02/25/19 Duloxetine HCl 60 mg PO DAILY 02/25/19 Fluticasone Propionate [Flonase Allergy Relief] 2 spray IH DAILY 02/25/19 Folic Acid 1 mg PO DAILY@0800 02/25/19 Gabapentin 300 mg PO BID 02/25/19 Gabapentin 600 mg PO QHS 02/25/19 Guaifenesin [Mucinex] 600 mg PO BID 02/25/19 Ipratropium [Atrovent Inhaler] 1 puff INHALATION Q6H PRN PRN 02/25/19 Loperamide HCl [Imodium A-D] 2 mg PO PRN PRN 02/25/19 Mirtazapine [Remeron] 30 mg PO QHS 02/25/19 Oxycodone HCl 10 mg PO Q4H PRN PRN 02/25/19 Potassium Citrate [Potassium Citrate ER] 5 meq PO DAILY 02/25/19 Amlodipine [Norvasc] 5 mg PO DAILY #30 tab 03/18/19 Clonidine HCl 0.2 mg PO BID #60 tab 03/18/19 Following Prescrptions Were Given to Patient: Clonidine HCl 0.2 mg PO BID #60 tab Transmission Status: Pending to [facility] #30 Amlodipine [Norvasc] 5 mg PO DAILY #30 tab Transmission Status: Pending to [facility] #30 Primary Care Physician: John Sears MD [Primary Care Provider] - Please follow up with your Primary Care Physician in: in 5-7 days Please Follow Up With: Yecenia Azevedo MD When: in 1-2 weeks Disposition: Home Minutes spent on discharge:: 45 Patient Condition:: Good Medical Necessity - Tobacco Use Smoking Status: Former smoker Tobacco Use: Non-smoker Meaningful Use Info Meaningful Use Diagnoses (Choose all that apply): None applicable Code Visit Inpatient E&M: 41081 Disch Hosp
--- NOTE | 2019-03-19 15:28 | CASEMGMT ---
RN KSENIA Discharge Follow-Up Phone Call. Lace: 15 Strata: 4 Discharge Date: 03/18/19 Adm Dx: Renal Failure Attempted discharge follow-up phone call. No answer. Message left for pt to return call to MS3 RN KSENIA, Dominique Yu, if she has any questions about the discharge instructions, medications, or appts. Phone number provided. Jackelyn MONREAL RN CM
[2019-03-20 15:22] LABS: Pathologist Review Reviewed
== END 2019-03-18 16:02 | disposition home or self-care (01) | DRG 682 ==
LOC: ED 10:35 → MS3 11:35
PROVIDERS: Internal Medicine Nephrology; Admitting Provider Internal Medicine; Emergency Provider Physician Assistant Medical; Family Provider Family Medicine; PCP Family Medicine; Referring Provider Internal Medicine; Visit Provider Internal Medicine
DX: N17.9 Acute kidney failure, unspecified (principal); E43 Unspecified severe protein-calorie malnutrition; Z68.1 Body mass index [BMI] 19.9 or less, adult; E87.1 Hypo-osmolality and hyponatremia; E87.2 Acidosis; J96.11 Chronic respiratory failure with hypoxia; E87.6 Hypokalemia; D86.9 Sarcoidosis, unspecified; J47.9 Bronchiectasis, uncomplicated; I10 Essential (primary) hypertension; E86.0 Dehydration; J45.40 Moderate persistent asthma, uncomplicated; Z93.2 Ileostomy status; Z99.81 Dependence on supplemental oxygen; Z87.891 Personal history of nicotine dependence; S22.49XD Multiple fractures of ribs, unspecified side, subsequent encounter for fracture with routine healing; E83.42 Hypomagnesemia; G89.29 Other chronic pain
CPT/HCPCS: 36415; 76770; 80048; 81001; 82570; 83735; 84300; 85025; 94640; 97161; 97166; 97802; 99285; J7030; A4216

== ENCOUNTER → 2019-03-20 15:48 | Outpatient (CLI) | payer MEDICARE, SELFPAY ==
[2019-03-15 12:15] VITALS: BMI 16.9
[2019-03-20 18:16] LABS: ALB/GLOB Ratio 0.8 RATIO (0.9-2.4); AST(SGOT) 14 U/L (15-37); Alanine Aminotransfer ALT/SGPT 24 U/L (13-56); Albumin, Serum 2.7 g/dL (3.2-5.0); Alkaline Phosphatase 104 U/L (45-117); Anion Gap 7 (5-15); BUN 13 mg/dL (7-18); BUN/Creat Ratio 11.4 RATIO (10-20); Calcium,Total 8.7 mg/dL (8.5-10.1); Chloride 108 mmol/L (98-107); Creatinine, Serum 1.14 mg/dL (0.55-1.02); EST Glomerular Filtration Rate 53 mL/min (>60); Est Glom Filt Rate - Afr Amer 64 mL/min (>60); Globulin 3.5 g/dL (2.2-4.2); Glucose 98 mg/dL (74-106); Potassium 4.4 mmol/L (3.5-5.1); Protein, Total 6.2 g/dL (6.4-8.2); Sodium Level 135 mmol/L (136-145)
== END ==
PROVIDERS: Family Provider Family Medicine; PCP Family Medicine; Referring Provider Family Medicine; Visit Provider Family Medicine
DX: E46 Unspecified protein-calorie malnutrition (principal)
CPT/HCPCS: 36415; 80053; 84134

== ENCOUNTER 2019-04-16 17:22 | Inpatient (IN) | payer MEDICARE, SELFPAY ==
[2019-03-15 12:15] VITALS: BMI 16.9
[2019-04-16 17:23] VITALS: BP 97/57; PULSE 81; RESP 15; TEMP 36.8; O2SAT 97; BMI 16.9
[2019-04-16] MEDS: 0.9% Normal Saline 1,000 ML 1000 ML IV (18:09)
[2019-04-16] MEDS: Acetaminophen 325 MG Tablet 650 MG PO (18:09)
[2019-04-16 18:18] LABS: Absolute Lymphocyte Count 3.87 X10^3/uL (0.83-4.51); Absolute Neutrophil Count 10.8 X10^3/uL (2.0-7.7); Basophil# 0.05 X10^3/uL; Basophil% 0.3 % (0-1); Eosinophil# 0.67 X10^3/uL; Eosinophils% 3.7 % (0-5); Hematocrit 33.6 % (37-47); Hemoglobin 11.7 g/dL (12.0-15.0); Lymphocyte # 3.87 X10^3/ul (4.0); Lymphocyte % 21.3 % (19-41); Mean Corp Hgb Conc 34.8 g/dL (32-36); Mean Corpuscular Hgb 27.2 pg (27.0-32.0); Mean Corpuscular Volume 78.1 fL (81-99); Mean Platelet Vol. 8.7 fl (6.2-12.0); Monocyte# 2.15 X10^3/uL; Monocyte% 11.8 % (0-10); NRBC Flagged by Analyzer 0 % (0-5); Neutrophil # 10.83 X10^3/uL (2.7-7.7); Neutrophil % 59.6 % (47-70); POSITIVE DIFFERENTIAL YES; POSITIVE MORPHOLOGY YES; Platelet Count 344 K/mm3 (150-450); RBC Distribution Width SD 42.1 fl (35.1-43.9); White Blood Count 18.2 K/mm3 (4.4-11.0)
[2019-04-16 18:48] LABS: Differential Indicated SCAN CRITERIA MET
[2019-04-16 18:53] LABS: Anisocytosis 2+; Hypochromasia 1+; Platelet Estimate ADEQUATE (ADEQ)
[2019-04-16 18:54] LABS: Target Cells 2+
[2019-04-16] MEDS: oxyCODONE 5 MG Tablet PO (19:01)
--- NOTE | 2019-04-16 19:10 | ED.DCSUM_ITS ---
History of Present Illness Chief Complaint: Fall Narrative: Patient presenting due to concern for possible dehydration. Patient is a 53-year-old with an underlying history of a ileostomy secondary to an episode of ischemic gut, prior history of kidney injury, hypertension, and COPD. Patient presented to the primary care office today with some chronic illness but appeared significantly dehydrated and has a 9 pound weight loss over the course of about the last week. When questioned about this, patient states that she has not been having any issues with nausea or vomiting, but has had some decreased p.o. intake. She denies any increased output from her ileostomy. No urinary signs or symptoms. She denies any chest pain or shortness of breath associated with this. Review of systems is otherwise negative, and the patient is asking for pain medications a meal and something to drink in the emergency department. Past Medical History - Allergies and Home Meds Allergies/Adverse Reactions: Allergies cephalexin monohydrate [From Keflex] Allergy (Mild, Verified 04/16/19 17:29) Itching doxycycline Adverse Reaction (Verified 04/16/19 17:29) Vomiting moxifloxacin HCl [From Avelox] Adverse Reaction (Verified 04/16/19 17:29) Vomiting Past Medical History: - - Ileostomy, COPD and asthma, renal insufficiency, hypertension Surgical History: - - Bilateral tubal ligation. lung biopsy ' Smoking Status: Former smoker - Family History Maternal Family History: Reports: Diabetes, Hypertension, Stroke Paternal Family History: Reports: Stroke Review of Systems All systems negative except as indicated General: Reports: Malaise Cardiovascular: Denies: Chest pain, Palpitations Respiratory: Denies: Dyspnea, Cough Gastrointestinal: Reports: - - Decreased appetite Musculoskeletal: Reports: Myalgias - Chronic leg pain Neurological: Denies: Headache Endocrine: Denies: Polyuria, Polydipsia Hematologic: Denies: Easy bruising Physical Exam Vital Signs/Narrative: Vital Signs Temp Pulse Resp BP Pulse Ox 04/16/19 17:23 98.2 F 81 15 97/57 L 97 Inital Vital Signs reviewed: Yes General: - - Cachectic female sitting in bed no acute distress Head: Normocephalic, Atraumatic Eyes: Perrl, EOMI, Pale conjunctiva. Negative for: Scleral icterus ENT: Dry mucous membranes Neck: Supple, Nontender Cardiovascular: Regular rate, Regular rhythm Respiratory: No distress, CTA bilaterally, Chest nontender Abdomen: Soft, Nontender, Nondistended, Normal bowel sounds, - - Ileostomy present with normal-appearing output Back: Nontender, Normal Inspection Extremities: Nontender, No edema Skin: Normal color, No rash Neurological: Alert, Oriented x3, Cranial nerves II-XII grossly intact, Normal Strength, Normal Sensation Psychological: Normal affect, Normal Mood Diagnostic/Tx/Re-eval - Medical Decision Making Patient presented secondary to generalized weakness and concerns for dehydration. IV was established laboratory studies were obtained patient was given fluid resuscitation. CBC was noted to have a leukocytosis 18 which seems to be chronic for this patient trending her backwards. Chemistry does not show electrolyte derangements but does show some JERO with the patient's baseline crea tinine being 0.7 and today is 1.6. Patient was modestly hypotensive when she initially arrived, her lactic acid was modestly elevated at 2.2. Blood pressure improved with fluid resuscitation, but the patient still maintains orthostatic hypotension with blood pressures in the 80s on standing. I believe that the patient would benefit from admission at this point. I discussed patient with the hospitalist and she will be admitted. ED Disposition - Plan for ED Patient: Disposition: Acute Care Hospital [facility] Diagnosis: Acute kidney failure, Generalized weakness
[2019-04-16 19:16] LABS: ALB/GLOB Ratio 0.6 RATIO (0.9-2.4); AST(SGOT) 40 U/L (15-37); Alanine Aminotransfer ALT/SGPT 21 U/L (13-56); Alkaline Phosphatase 144 U/L (45-117); Anion Gap 7 (5-15); BUN 23 mg/dL (7-18); BUN/Creat Ratio 13.7 RATIO (10-20); Calcium,Total 9.2 mg/dL (8.5-10.1); Chloride 103 mmol/L (98-107); Creatinine, Serum 1.68 mg/dL (0.55-1.02); EST Glomerular Filtration Rate 34 mL/min (>60); Est Glom Filt Rate - Afr Amer 41 mL/min (>60); Estimated Creatinine Clearance 26.62 ml/min; Globulin 4.8 g/dL (2.2-4.2); Glucose 137 mg/dL (74-106); Lactic Acid 2.2 mmol/L (0.4-2.0); Potassium 4.4 mmol/L (3.5-5.1); Protein, Total 7.8 g/dL (6.4-8.2); Sodium Level 132 mmol/L (136-145)
--- NOTE | 2019-04-16 19:21 | ED.RN ---
lab called with critical lab results. Lactic acid 2.2. Dr. Steen made aware. no new orders at this time
[2019-04-16 19:23] VITALS: BP 108/84; PULSE 83; RESP 17; TEMP 36.8; O2SAT 94
[2019-04-16] MEDS: Lactated Ringers 1,000 ML 999 ML IV (19:38)
[2019-04-16 20:27] VITALS: BP 101/76; BP 118/86; BP 84/39; PULSE 78; PULSE 85; PULSE 90
--- NOTE | 2019-04-16 20:45 | PCM.HP.STD ---
Problem List (1) Acute renal failure Status: Acute Qualifiers: Acute renal failure type: unspecified Qualified Code(s): N17.9 - Acute kidney failure, unspecified (2) Severe dehydration Status: Acute (3) Hyponatremia Status: Acute (4) Chronic respiratory failure Status: Chronic Qualifiers: Respiratory failure complication: hypoxia (5) Bronchiectasis Status: Chronic Qualifiers: Bronchiectasis type: uncomplicated Qualified Code(s): J47.9 - Bronchiectasis, uncomplicated (6) Asthma Status: Chronic Qualifiers: Asthma severity: unspecified severity Asthma persistence: unspecified Asthma complication type: unspecified Qualified Code(s): J45.909 - Unspecified asthma, uncomplicated (7) COPD (chronic obstructive pulmonary disease) Status: Chronic Qualifiers: COPD type: unspecified COPD (8) Chronic pain Status: Chronic Qualifiers: Chronic pain type: chronic pain syndrome (9) Leukocytosis Status: Chronic Qualifiers: Leukocytosis type: unspecified (10) HTN (hypertension) Status: Chronic Qualifiers: Hypertension type: essential hypertension (11) Sarcoidosis Status: Chronic History of Present Illness Date of Admission: 04/16/19 Chief Complaint: Fatigued, malaise, increased ostomy output possibly The patient is a 53 y/o F w/ PMHx: Chronic COPD, Asthma, Chronic Hypoxic Respiratory Failure, Sarcoidosis, Chronic Leukocytosis, Former Tobacco use, HTN, Chronic Severe Protein Calorie Malnutrition most recently discharged on 03/18/19 following similar presentation with acute kidney injury suspected secondary medications as well as dehydration as at that time she also been on diuretics as well as Bactrim with improvement at that time who now represents to the [facility] ED on 04/16/19 with history of progressively worsening fatigue, weakness, lethargy and decline since most recent discharge which she notes is a common occurrence with intermittently increased ostomy output, poor oral intake with decreased urine output but no specific dysuria prompting eventual ED return per primary care physician encouragement given recent visit on day of ED presentation with notable weakness and potentially fall associated. Work-up in the ED included T 98.2, heart rate 83, BP 108/84, notable orthostatic vital signs, respiratory rate 17, 94% on room air, CBC with WC 18.2, hemoglobin 11.7, platelet 344 with left shift, CMP with sodium 132, BUN/creatinine 23/1.68, glucose 137, lactic acid 2.2, analysis requested per ED and pending. In the ED patient ministered normal saline, oxycodone, Tylenol. Past Medical History Past Medical History (Chronic Problems): Chronic Problems (Last Updated 02/25/19 @ 14:59 by Idalia Blankenship MD) Chronic respiratory failure (Chronic) Bronchiectasis (Chronic) Asthma (Chronic) COPD (chronic obstructive pulmonary disease) (Chronic) Chronic pain (Chronic) Leukocytosis (Chronic) HTN (hypertension) (Chronic) Sarcoidosis (Chronic) Medical History: Medical History (Last Updated 02/25/19 @ 14:59 by Idalia Blankenship MD) Bronchiectasis (Chronic) J47.9 Asthma (Chronic) J45.909 COPD (chronic obstructive pulmonary disease) (Chronic) J44.9 Leukocytosis (Chronic) D72.829 HTN (hypertension) (Chronic) I10 Sarcoidosis (Chronic) D86.9 Allergies cephalexin monohydrate [From Keflex] Allergy (Mild, Verified 04/16/19 17:29) Itching doxycycline Adverse Reaction (Verified 04/16/19 17:29) Vomiting moxifloxacin HCl [From Avelox] Adverse Reaction (Verified 04/16/19 17:29) Vomiting Home Medications: Ambulatory Orders Medication Instructions Recorded Albuterol Aerosols [Ventolin 2.5 mg INHALATION Q2H PRN PRN 08/13/17 Aerosols] Magnesium 400 mg PO BID 12/28/18 Magnesium Hydroxide [Milk Of 30 ml PO DAILY PRN PRN 12/28/18 Magnesia] Metoprolol Tartrate 25 mg PO DAILY 12/28/18 Tizanidine HCl [Zanaflex] 2 - 4 mg PO BID PRN PRN 12/28/18 Albuterol Inhaler [Ventolin Hfa] 1 - 2 puff INHALATION Q4H PRN PRN 02/25/19 Duloxetine HCl 60 mg PO DAILY 02/25/19 Fluticasone Propionate [Flonase 2 spray IH DAILY 02/25/19 Allergy Relief] Folic Acid 1 mg PO DAILY@0800 02/25/19 Gabapentin 300 mg PO BID 02/25/19 Gabapentin 600 mg PO QHS 02/25/19 Guaifenesin [Mucinex] 600 mg PO BID 02/25/19 Ipratropium [Atrovent Inhaler] 1 puff INHALATION Q6H PRN PRN 02/25/19 Loperamide HCl [Imodium A-D] 2 mg PO PRN PRN 02/25/19 Mirtazapine [Remeron] 30 mg PO QHS 02/25/19 Oxycodone HCl 10 mg PO Q4H PRN PRN 02/25/19 Potassium Citrate [Potassium 5 meq PO DAILY 02/25/19 Citrate ER] Clonidine HCl 0.2 mg PO BID #60 tab 03/18/19 Surgical History: Surgical History (Last Updated 02/25/19 @ 14:59 by Idalia Blankenship MD) History of lung biopsy (Inactive) Z98.890 History of tubal ligation (Inactive) Z98.51 Surgical History: - - Bilateral tubal ligation. 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 Denies: Chills, Fever, Weight Change HEENT: Denies: Head Aches, Sinus Congestion, Sinus Drainage Cardiovascular: Denies: Chest Pain, Palpitations Respiratory: Denies: Cough, Shortness of Breath, Shortness of breath at rest, Shortness of breath upon exertion, Sputum production Gastrointestinal: Reports: - - High ostomy output.. Denies: Abdominal Pain, Nausea, Vomiting Genitourinary: Reports: -. Denies: Dysuria Musculoskeletal: Reports: Back Pain, Joint Pain, Muscle pain. Denies: Joint Tenderness Skin: Denies: Rash, Wounds Neurological: Denies: Numbness, Tingling, Focal weakness Psychiatric: Denies: Anxiety, Depression, Homicidal Ideations, Suicidal Ideations Hematologic/ Lymphatic: Reports: Anemia. Denies: Easy Bruising, Easy Bleeding VTE Information - Inpt Only VTE Present on Admission: No VTE Mechan Device Prophylaxis: SCD's VTE Pharm Prophylaxis ordered?: Yes Subjective: Patient seated upright in the ED bed, fatigued appearance, no acute distress at this time. Objective: Physical Examination: General: awake, alert, oriented x 3 and cooperative, seated upright in the ED bed, fatigued appearance. Skin: normal color, turgor, no icterus, cyanosis. HEENT: AT/NC, EOMI, PERRLA, dry MM, no carotid bruits or JVD noted. Lungs: CTA bilaterally, moderate effort, moderate decrease BL bases, mild crackles bilateral bases, no rales, ronchi or wheezing. Heart: Regular rate and rhythm; no gallop, rub audible. Abdomen: soft, thin cachectic habitus, ostomy right lower quadrant in place with notable output, NTTP, ND, reactive BS, no HSM. Extremities: no cyanosis, clubbing, or edema. Neurological: patient awake, alert, oriented x 3; cognitive function intact; pupils equally reactive to light and accomodation; cranial nerves II-XII grossly normal, moving all 4 extremities, no focal deficits, strength severely global decrease secondary to acute presentation. Psychiatric: affect appears fatigued, no acute evidence of depressive or anxiety feelings. - Physical Exam Vital Signs Temp Pulse Resp BP Pulse Ox 98.2 F 78 17 118/86 H 94 04/16/19 19:23 04/16/19 20:27 04/16/19 19:23 04/16/19 20:27 04/16/19 19:23 Oxygen Delivery Method Room Air Weight: 96 lb Body Mass Index (BMI) 16.9 Finger Stick Blood Glucose 156 Intake and Output for Last 24 Hours 04/14/19 04/15/19 04/16/19 23:59 23:59 23:59 Intake Total 1000 / 1000 Balance 1000 / 1000 Laboratory Tests Past 24 Hrs 04/16/19 04/16/19 04/16/19 18:05 18:05 18:05 WBC 18.2 H RBC 4.30 Hgb 11.7 L Hct 33.6 L MCV 78.1 L MCH 27.2 MCHC 34.8 RDW Std Deviation 42.1 RDW Coeff of Mary 15.0 H Plt Count 344 MPV 8.7 Immature Gran % (Auto) 3.300 H Neut % (Auto) 59.6 Lymph % (Auto) 21.3 [place] % (Auto) 11.8 H Eos % (Auto) 3.7 Baso % (Auto) 0.3 Absolute Neuts (auto) 10.8 H Absolute Lymphs (auto) 3.87 Nucleated RBC % 0 Differential Comment Diff Path Review May foll Platelet Estimate ADEQUATE Hypochromasia 1+ Anisocytosis 2+ Target Cells 2+ Sodium 132 L Potassium 4.4 Chloride 103 Carbon Dioxide 22.0 Anion Gap 7 BUN 23 H Creatinine 1.68 H Estim Creat Clear Calc 26.62 Est GFR (MDRD) Af Amer 41 L Est GFR (MDRD) Non-Af 34 L BUN/Creatinine Ratio 13.7 Glucose 137 H Lactic Acid 2.2 H Calcium 9.2 Total Bilirubin 0.40 AST 40 H ALT 21 Alkaline Phosphatase 144 H Total Protein 7.8 Albumin 3.0 L Globulin 4.8 H Albumin/Globulin Ratio 0.6 L Assessment/Plan All Active Problems (Last Updated 02/25/19 @ 14:59 by Idalia Blankenship MD) Rib fractures (Resolved) Acute right-sided thoracic back pain (Resolved) Acute right-sided thoracic back pain (Resolved) Radicular pain of thoracic region (Resolved) Radicular pain of thoracic region (Resolved) Acute renal failure (Acute) Severe dehydration (Acute) Hyponatremia (Acute) Hypokalemia (Acute) Acute kidney failure (Acute) Hypokalemia (Acute) Hyponatremia (Acute) Generalized weakness (Acute) Fatigue (Acute) The patient is a 53 y/o F w/ PMHx: Chronic COPD, Asthma, Chronic Hypoxic Respiratory Failure, Sarcoidosis, Chronic Leukocytosis, Former Tobacco use, HTN, Chronic Severe Protein Calorie Malnutrition who presents to the [facility] ED on 04/16/19 with history of progressively worsening fatigue, weakness, lethargy and decline since most recent discharge which she notes is a common occurrence with intermittently increased ostomy output, poor oral intake with decreased urine output. 1. Acute kidney injury secondary to notable dehydration with orthostasis: Secondary to high ostomy output, poor oral intake, medications. Admission BUN/Cr 23/1.68, prior baseline creatinine noted to be 0.8 but she has been admitted prior for acute kidney injury and creatinine has been up to 5.0. Will hydrate, hold nephrotoxic medications and repeat chemistry in AM. If no improvement would plan FeNa assessment and request repeat nephrology assessment. She has been noted to have seen Dr. Azevedo. 2. Hyponatremia, hypovolemic: Admission sodium 132, likely secondary to poor oral intake, dehydration, high ostomy output, continue to hydrate, trend BMP. 3. Lactic acidosis: Admission lactic acid 2.2 suspected secondary to dehydration, lower suspicion for infection but requested UA given primary complaint of decreased urine output, no reported pulmonary complaints. 4. Hx SBO s/p Ileostomy: Likely contributing to #1 especially given high output, per discussion with patient likely also not keeping up with her oral intake, had prior been on diuretics which have since been discontinued, will encourage oral intake, consult nutrition, closely monitor ostomy output, initiate on scheduled loperamide as well as Metamucil to assist in reduction of high output. 5. Chronic sarcoidosis: Patient previously noted to have been on leflunomide as well as Bactrim for prophylaxis however at this time she has been off Bactrim secondary to acute kidney injury frequent presentations. 6. Moderate persistent asthma/Chronic COPD with Former Tobacco use: We will continue home inhaler regimen, PRN albuterol, head of bed, I-S, continue home chronic oxygen usage. 7. Chronic hypoxic respiratory failure secondary to sarcoidosis, asthma, chronic COPD: We will maintain on patient home 3 L nasal cannula. 8. Hypertension: Continue home regimen including clonidine, metoprolol, PRN hydralazine. 9. Chronic leukocytosis: Admission WBC 18.2, similar to prior, stable, trend. 10. Severe protein-calorie malnutrtion: Evidenced her habitus, BMI, evident muscle and fat loss, nutrition consulted. Magnesium and phosphorus pending, supplementation as needed. 11. Chronic pain syndrome: We will continue patient home chronic pain regimen. PT, OT, case management consultations for discharge planning. 12. DVT prophylaxis: SCDs, heparin. Code Visit Inpatient E&M: 77603 Init Hosp L3
[2019-04-16 20:56] VITALS: BP 132/93; PULSE 79; RESP 18; O2SAT 100
[2019-04-16 21:00] VITALS: BP 103/81; PULSE 80; RESP 16; O2SAT 100
[2019-04-16 21:38] VITALS: BP 99/69; PULSE 88; RESP 16; TEMP 36.4; O2SAT 100
[2019-04-16 21:48] VITALS: BMI 18.2
[2019-04-16 21:57] VITALS: BMI 18.2
[2019-04-16 22:08] LABS: Magnesium 1.3 mg/dL (1.6-2.6); Phosphorus 3.8 mg/dL (2.5-4.9)
[2019-04-16 22:15] LABS: Reflex Lactate? Y
[2019-04-16] MEDS: Morphine 2 MG/ML Syringe IV (22:16)
[2019-04-16] MEDS: 0.9% Normal Saline 1,000 ML 125 ML IV (22:18)
[2019-04-16] MEDS: Benzonatate 100 MG Capsule PO (22:26)
[2019-04-16] MEDS: Atorvastatin Calcium 10 MG Tablet PO (22:26)
[2019-04-16] MEDS: Magnesium Oxide 400 MG Tablet PO (22:27)
[2019-04-16] MEDS: Loperamide 2 MG Capsule PO (22:27)
[2019-04-16] MEDS: Mirtazapine 30 MG Tablet PO (22:27)
[2019-04-16] MEDS: Gabapentin 600 MG Tablet PO (22:27)
[2019-04-16] MEDS: Heparin Injection (Vial) 5,000 UNIT/ML VIAL 5000 UNIT SC (22:54)
[2019-04-16] MEDS: oxyCODONE 5 MG Tablet 10 MG PO (23:08)
--- NOTE | 2019-04-17 01:23 | RAD_ITS ---
STUDY: X-RAY CHEST REASON FOR EXAM: Female, 53 years old. Line placement TECHNIQUE: Single AP portable view of the chest. COMPARISON: None. FINDINGS: There is a central venous line on the right with tip is at the cavoatrial junction is in good position. There are interstitial fibrotic changes of the lungs. There is no demonstrated pleural abnormality. Normal size heart. Normal mediastinum and jordin. Normal visualized pulmonary arteries. Normal visualized aortic arch and descending thoracic aorta. Normal visualized thoracic spine. Normal visualized ribs, clavicles, and shoulders. There is no demonstrated abnormality of the visualized soft tissue structures of the upper abdomen. RAD/CXR for Line Placement IMPRESSION: There is a central venous line on the right with tip is at the cavoatrial junction is in good position. Chronic interstitial lung disease. Electronically Signed: Rosa Ortiz, at 3:07 EDT Tel , Service support ,
--- NOTE | 2019-04-17 01:31 | PCM.HOSP.N ---
Hospitalist Note Central line note: Patient with notable orthostasis, need for IV fluids given acute kidney injury and acute presentation with additional IV regimen necessities with several failed attempts at peripheral IV access therefore discussed central access placement with right IJ with patient and she was amenable following discussion of procedure. Consent obtained for placement of central line and placed on chart. Region prepped and draped in standard fashion. US guidance used to obtain access, guidewire threaded without issue, central line catheter placed over guidewire and wire removed w/ cap placed. Lines again drawn and flushed without difficulty. Central line sutured in place. CXR ordered. Code Visit Procedures: 57470 Insert Non-tunnel CV Cath
[2019-04-17 02:17] LABS: Lactic Acid 1.4 mmol/L (0.4-2.0)
[2019-04-17 03:40] VITALS: BP 135/96; PULSE 65; RESP 16; TEMP 36.6; O2SAT 95
[2019-04-17] MEDS: Magnesium Sulfate 4gm/100mL 4 GM/100 ML IV.SOLN. IV (03:40)
[2019-04-17] MEDS: Morphine 2 MG/ML Syringe IV ×5 (04:02→22:50)
[2019-04-17 06:16] LABS: Absolute Lymphocyte Count 3.03 X10^3/uL (0.83-4.51); Absolute Neutrophil Count 7.6 X10^3/uL (2.0-7.7); Basophil# 0.14 X10^3/uL; Eosinophil# 0.62 X10^3/uL; Eosinophils% 4.5 % (0-5); Hemoglobin 10.7 g/dL (12.0-15.0); Lymphocyte # 3.03 X10^3/ul (4.0); Lymphocyte % 22.2 % (19-41); Mean Corp Hgb Conc 34.5 g/dL (32-36); Mean Corpuscular Hgb 26.9 pg (27.0-32.0); Mean Corpuscular Volume 77.9 fL (81-99); Mean Platelet Vol. 8.9 fl (6.2-12.0); Monocyte# 2.09 X10^3/uL; Monocyte% 15.3 % (0-10); NRBC Flagged by Analyzer 0 % (0-5); Neutrophil # 7.61 X10^3/uL (2.7-7.7); Neutrophil % 55.8 % (47-70); POSITIVE DIFFERENTIAL YES; Platelet Count 324 K/mm3 (150-450); RBC Distribution Width CV 14.6 % (11.6-14.6); RBC Distribution Width SD 41.1 fl (35.1-43.9); Red Blood Count 3.98 M/mm3 (4.2-5.4); White Blood Count 13.7 K/mm3 (4.4-11.0)
[2019-04-17] MEDS: Benzonatate 100 MG Capsule PO ×3 (06:16→22:50)
[2019-04-17] MEDS: Loperamide 2 MG Capsule PO ×4 (06:16→21:04)
[2019-04-17 06:17] LABS: Differential Indicated SCAN CRITERIA MET
[2019-04-17 06:24] LABS: ALB/GLOB Ratio 0.7 RATIO (0.9-2.4); AST(SGOT) 13 U/L (15-37); Alanine Aminotransfer ALT/SGPT 16 U/L (13-56); Albumin, Serum 2.6 g/dL (3.2-5.0); Alkaline Phosphatase 127 U/L (45-117); Anion Gap 8 (5-15); BUN 17 mg/dL (7-18); BUN/Creat Ratio 14.7 RATIO (10-20); Calcium,Total 8.6 mg/dL (8.5-10.1); Chloride 112 mmol/L (98-107); Creatinine, Serum 1.16 mg/dL (0.55-1.02); EST Glomerular Filtration Rate 52 mL/min (>60); Est Glom Filt Rate - Afr Amer 63 mL/min (>60); Estimated Creatinine Clearance 40.02 ml/min; Globulin 3.8 g/dL (2.2-4.2); Glucose 94 mg/dL (74-106); Potassium 3.5 mmol/L (3.5-5.1); Protein, Total 6.4 g/dL (6.4-8.2); Sodium Level 142 mmol/L (136-145)
--- NOTE | 2019-04-17 07:51 | PN_ITS ---
Patient Problems: Active and Suspected Problems (Last Updated 02/25/19 @ 14:59 by Idalia Blankenship MD) Acute kidney failure (Acute) Generalized weakness (Acute) Subjective: CC: Acute kidney injury 53-year-old old who presented with progressive generalized weakness and fall. She was found to have acute kidney injury admitted to regular nursing floor where she is currently being managed Objective: GENERAL: Frail looking HEENT: Atraumatic; EYES; Anicteric, Normal Conjunctiva NECK; supple, normal thyroid, RESPIRATORY: Diminished to auscultation bilaterally, CARDIOVASCULAR: Regular S1 S2, GI: soft, non-tender, normoactive bowel sounds, : No Renal angle tenderness; EXTREMITIES: No edema, no clubbing, MUSCULOSKELETAL: No Joint Tenderness; NEURO: Awake; no lateralizing signs. SKIN: No Rash PSYCH; Normal affect Vitals/I&O's: Vital Signs Temp Pulse Resp BP Pulse Ox 97.8 F 65 16 135/96 H 95 04/17/19 03:40 04/17/19 03:40 04/17/19 03:40 04/17/19 03:40 04/17/19 03:40 Oxygen Delivery Method Room Air Weight: 45.2 kg Body Mass Index (BMI) 18.2 Finger Stick Blood Glucose 156 Intake and Output for Last 24 Hours 04/15/19 04/16/19 04/17/19 23:59 23:59 23:59 Intake Total 2225 / 2225 108.33 / 108.33 Balance 2225 / 2225 108.33 / 108.33 Laboratory Results 04/16/19 18:05: WBC 18.2 H, RBC 4.30, Hgb 11.7 L, Hct 33.6 L, MCV 78.1 L, MCH 27.2, MCHC 34.8, RDW Std Deviation 42.1, RDW Coeff of Mary 15.0 H, Plt Count 344, MPV 8.7, Immature Gran % (Auto) 3.300 H, Neut % (Auto) 59.6, Lymph % (Auto) 21.3, Gaines % (Auto) 11.8 H, Eos % (Auto) 3.7, Baso % (Auto) 0.3, Absolute Neuts (auto) 10.8 H, Absolute Lymphs (auto) 3.87, Nucleated RBC % 0, Differential Comment , Diff Path Review May foll, Platelet Estimate ADEQUATE, Hypochromasia 1+, Anisocytosis 2+, Target Cells 2+ 04/16/19 18:05: Sodium 132 L, Potassium 4.4, Chloride 103, Carbon Dioxide 22.0, Anion Gap 7, BUN 23 H, Creatinine 1.68 H, Estim Creat Clear Calc 26.62, Est GFR (MDRD) Af Amer 41 L, Est GFR (MDRD) Non-Af 34 L, BUN/Creatinine Ratio 13.7, Glucose 137 H, Calcium 9.2, Total Bilirubin 0.40, AST 40 H, ALT 21, Alkaline Phosphatase 144 H, Total Protein 7.8, Albumin 3.0 L, Globulin 4.8 H, Albumin/Globulin Ratio 0.6 L 04/16/19 18:05: Lactic Acid 2.2 H 04/16/19 18:05: Phosphorus 3.8, Magnesium 1.3 L 04/16/19 22:43: Lactic Acid Cancelled 04/17/19 01:45: Lactic Acid 1.4 04/17/19 05:47: WBC 13.7 H, RBC 3.98 L, Hgb 10.7 L, Hct 31.0 L, MCV 77.9 L, MCH 26.9 L, MCHC 34.5, RDW Std Deviation 41.1, RDW Coeff of Mary 14.6, Plt Count 324, MPV 8.9, Immature Gran % (Auto) 1.200 H, Neut % (Auto) 55.8, Lymph % (Auto) 22.2, Gaines % (Auto) 15.3 H, Eos % (Auto) 4.5, Baso % (Auto) 1.0, Absolute Neuts (auto) 7.6, Absolute Lymphs (auto) 3.03, Nucleated RBC % 0, Diff Path Review December foll 04/17/19 05:47: Sodium 142, Potassium 3.5, Chloride 112 H, Carbon Dioxide 22.0, Anion Gap 8, BUN 17, Creatinine 1.16 H, Estim Creat Clear Calc 40.02, Est GFR (MDRD) Af Amer 63, Est GFR (MDRD) Non-Af 52 L, BUN/Creatinine Ratio 14.7, Glucose 94, Calcium 8.6, Total Bilirubin 0.30, AST 13 L, ALT 16, Alkaline Phosphatase 127 H, Total Protein 6.4, Albumin 2.6 L, Globulin 3.8, Albumin/Globulin Ratio 0.7 L 04/17/19 05:47: Lactic Acid 1.0 Current Medications Acetaminophen (Tylenol) 650 mg PO Q6H PRN PRN PRN Reason: Non-cardiac pain (mod-severe) Al Hydroxide/Mg Hydroxide (Mylanta Ii) 15 - 30 ml PO Q4H PRN PRN PRN Reason: INDIGESTION Albuterol Sulfate (Ventolin Aerosols) 2.5 mg INHALATION Q2H PRN PRN PRN Reason: dyspnea, wheezing Amlodipine Besylate (Norvasc) 5 mg PO DAILY [facility] Atorvastatin Calcium (Lipitor) 10 mg PO QHS [facility] Last Admin: 04/16/19 22:26 Dose: 10 mg Documented by: Benzonatate (Tessalon Perle) 100 mg PO TID [facility] Last Admin: 04/17/19 06:16 Dose: 100 mg Documented by: Clonidine (Catapres) 0.2 mg PO BID [facility] Last Admin: 04/16/19 22:03 Dose: Not Given Documented by: Dextrose (D50w Syringe) 0 gm IV X1 PRN; Protocol PRN Reason: Hypoglycemia Duloxetine HCl (Cymbalta) 60 mg PO DAILY [facility] Fluticasone Propionate (Flonase Nasal [place]) 2 spray NASAL DAILY [facility] Folic Acid (Folic Acid) 1 mg PO DAILY@0800 [facility] Gabapentin (Neurontin) 600 mg PO QHS [facility] Last Admin: 04/16/19 22:27 Dose: 600 mg Documented by: Gabapentin (Neurontin) 300 mg PO BIDCM [facility] Glucagon () 1 mg IM .X1 PRN PRN Reason: Hypoglycemia Heparin Sodium (Porcine) (Heparin Na) 5,000 unit SC Q12 [facility] Last Admin: 04/16/19 22:54 Dose: 5,000 unit Documented by: Hydralazine HCl (Apresoline Iv) 10 mg IV Q4H PRN PRN PRN Reason: SBP > 160 Sodium Chloride () 1,000 mls @ 125 mls/hr IV .Q8H [facility] Last Infusion: 04/17/19 03:44 Dose: 125 mls/hr Documented by: Sodium Chloride () 250 mls @ 15 mls/hr IV .[id number] PRN PRN Reason: SALINE FLUSH Ipratropium Redfox (Atrovent) 0.5 mg INHALATION Q6H PRN PRN PRN Reason: BREATHING Loperamide HCl (Imodium) 2 mg PO Q6H [facility] Last Admin: 04/17/19 06:16 Dose: 2 mg Documented by: Magnesium Hydroxide (Milk Of Magnesia) 30 ml PO DAILY PRN PRN Reason: Constipation Magnesium Hydroxide (Milk Of Magnesia) 30 ml PO DAILY PRN PRN PRN Reason: Constipation Magnesium Oxide (Mag-Ox 400) 400 mg PO BID [facility] Last Admin: 04/16/19 22:27 Dose: 400 mg Documented by: Metoprolol Tartrate (Lopressor (Beta Carine)) 25 mg PO DAILY [facility] Mirtazapine (Remeron) 30 mg PO QHS [facility] Last Admin: 04/16/19 22:27 Dose: 30 mg Documented by: Morphine Sulfate () 1 - 2 mg IV Q4H PRN PRN PRN Reason: PAIN Last Admin: 04/17/19 04:02 Dose: 2 mg Documented by: Nutritional Formula (Lactose Free) (Ensure Enlive) 120 ml PO 4X/DAY [facility] Last Admin: 04/16/19 22:17 Dose: 120 ml Documented by: Ondansetron HCl (Zofran) 4 mg IV Q8H PRN PRN PRN Reason: NAUSEA/VOMITING Oxycodone HCl (Oxyir) 10 mg PO Q4H PRN PRN PRN Reason: PAIN Last Admin: 04/16/19 23:08 Dose: 10 mg Documented by: Psyllium Hydrophilic Mucilloid (Metamucil) 1 packet PO BID [facility] Last Admin: 04/16/19 22:22 Dose: Not Given Documented by: Sodium Chloride () 10 - 40 ml IV UD PRN PRN Reason: SALINE FLUSH Tizanidine HCl (Zanaflex) 2 - 4 mg PO BID PRN PRN PRN Reason: muscle spasms Medical Necessity - Tobacco Use Smoking Status: Former smoker Tobacco Use: Non-smoker Assessment/Plan All Active Problems (Last Updated 02/25/19 @ 14:59 by Idalia Blankenship MD) Rib fractures (Resolved) Acute right-sided thoracic back pain (Resolved) Acute right-sided thoracic back pain (Resolved) Radicular pain of thoracic region (Resolved) Radicular pain of thoracic region (Resolved) Acute renal failure (Acute) Severe dehydration (Acute) Hyponatremia (Acute) Hypokalemia (Acute) Acute kidney failure (Acute) Hypokalemia (Acute) Hyponatremia (Acute) Generalized weakness (Acute) Fatigue (Acute) 53-year-old old who presented with progressive generalized weakness and fall. She was found to have acute kidney injury admitted to regular nursing floor where she is currently being managed 1. Acute kidney injury: Secondary to dehydration from high output osteotomy. Admitted to the regular nursing floor being managed with IV fluids 2. Lactic acidosis attributed to patient hypovolemia on admission no evidence of infection was found 3. Hypovolemic hyponatremia managed with IV fluids with monitoring of electrolyte 4. History of ileostomy following small bowel obstruction 5. Sarcoidosis patient was previously on leflunomide however this was not listed on patient's home meds on admission; was also previously on Bactrim which was discontinued in view of acute kidney injury 6. Moderate persistent asthma with frequent exacerbations did continue with patient aerosol treatment 7. Hypertension patient on clonidine blood pressure controlled 8. Chronic hypoxic respiratory failure due to sarcoidosis: On 3 L of oxygen which is her baseline. 9. Severe protein-calorie malnutrition: Evidenced by decreased energy level as well as BMI of 18.2 consult placed to dietitian 10. DVT prophylaxis SC heparin Active Medications Acetaminophen (Tylenol) 650 mg PO Q6H PRN PRN PRN Reason: Non-cardiac pain (mod-severe) Al Hydroxide/Mg Hydroxide (Mylanta Ii) 15 - 30 ml PO Q4H PRN PRN PRN Reason: INDIGESTION Albuterol Sulfate (Ventolin Aerosols) 2.5 mg INHALATION Q2H PRN PRN PRN Reason: dyspnea, wheezing Amlodipine Besylate (Norvasc) 5 mg PO DAILY [facility] Atorvastatin Calcium (Lipitor) 10 mg PO QHS [facility] Last Admin: 04/16/19 22:26 Dose: 10 mg Documented by: Benzonatate (Tessalon Perle) 100 mg PO TID [facility] Last Admin: 04/17/19 06:16 Dose: 100 mg Documented by: Clonidine (Catapres) 0.2 mg PO BID [facility] Last Admin: 04/16/19 22:03 Dose: Not Given Documented by: Dextrose (D50w Syringe) 0 gm IV X1 PRN; Protocol PRN Reason: Hypoglycemia Duloxetine HCl (Cymbalta) 60 mg PO DAILY [facility] Fluticasone Propionate (Flonase Nasal [place]) 2 spray NASAL DAILY [facility] Folic Acid (Folic Acid) 1 mg PO DAILY@0800 [facility] Gabapentin (Neurontin) 600 mg PO QHS [facility] Last Admin: 04/16/19 22:27 Dose: 600 mg Documented by: [facility] Glucagon () 1 mg IM .X1 PRN PRN Reason: Hypoglycemia Heparin Sodium (Porcine) (Heparin Na) 5,000 unit SC Q12 [facility] Last Admin: 04/16/19 22:54 Dose: 5,000 unit Documented by: Hydralazine HCl (Apresoline Iv) 10 mg IV Q4H PRN PRN PRN Reason: SBP > 160 Sodium Chloride () 1,000 mls @ 125 mls/hr IV .Q8H [facility] Last Infusion: 04/17/19 03:44 Dose: 125 mls/hr Documented by: Sodium Chloride () 250 mls @ 15 mls/hr IV .[id number] PRN PRN Reason: SALINE FLUSH Ipratropium Redfox (Atrovent) 0.5 mg INHALATION Q6H PRN PRN PRN Reason: BREATHING Loperamide HCl (Imodium) 2 mg PO Q6H [facility] Last Admin: 04/17/19 06:16 Dose: 2 mg Documented by: Magnesium Hydroxide (Milk Of Magnesia) 30 ml PO DAILY PRN PRN Reason: Constipation Magnesium Hydroxide (Milk Of Magnesia) 30 ml PO DAILY PRN PRN PRN Reason: Constipation Magnesium Oxide (Mag-Ox 400) 400 mg PO BID [facility] Last Admin: 04/16/19 22:27 Dose: 400 mg Documented by: Metoprolol Tartrate (Lopressor (Beta Carine)) 25 mg PO DAILY [facility] Mirtazapine (Remeron) 30 mg PO QHS [facility] Last Admin: 04/16/19 22:27 Dose: 30 mg Documented by: Morphine Sulfate () 1 - 2 mg IV Q4H PRN PRN PRN Reason: PAIN Last Admin: 04/17/19 04:02 Dose: 2 mg Documented by: Nutritional Formula (Lactose Free) (Ensure Enlive) 120 ml PO 4X/DAY [facility] Last Admin: 04/16/19 22:17 Dose: 120 ml Documented by: Ondansetron HCl (Zofran) 4 mg IV Q8H PRN PRN PRN Reason: NAUSEA/VOMITING Oxycodone HCl (Oxyir) 10 mg PO Q4H PRN PRN PRN Reason: PAIN Last Admin: 04/16/19 23:08 Dose: 10 mg Documented by: Psyllium Hydrophilic Mucilloid (Metamucil) 1 packet PO BID [facility] Last Admin: 04/16/19 22:22 Dose: Not Given Documented by: Sodium Chloride () 10 - 40 ml IV UD PRN PRN Reason: SALINE FLUSH Tizanidine HCl (Zanaflex) 2 - 4 mg PO BID PRN PRN PRN Reason: muscle spasms Code Visit Inpatient E&M: 61441 Subs Hosp L2
[2019-04-17 08:25] VITALS: BP 145/103; PULSE 99; RESP 18; TEMP 37.1; O2SAT 98
[2019-04-17] MEDS: 0.9% NaCl Peripheral Flush Adult/Peds IV ×3 (08:27→18:50)
[2019-04-17] MEDS: Folic Acid 1 MG Tablet PO (08:31)
[2019-04-17] MEDS: Gabapentin 300 MG Capsule PO ×2 (08:31→16:30)
[2019-04-17] MEDS: oxyCODONE 5 MG Tablet 10 MG PO ×3 (10:37→21:01)
[2019-04-17] MEDS: Fluticasone 0.05% 1 SPRAY NASAL.SRY 2 SPRAY NASAL (10:38)
[2019-04-17 10:39] VITALS: PULSE 99
[2019-04-17] MEDS: cloNIDine HCl 0.2 MG Tablet PO ×2 (10:39→22:48)
[2019-04-17] MEDS: Metoprolol Tartrate 25 MG Tablet PO (10:39)
[2019-04-17] MEDS: Heparin Injection (Vial) 5,000 UNIT/ML VIAL 5000 UNIT SC ×2 (10:39→22:48)
[2019-04-17] MEDS: DULoxetine Hcl 60 MG Capsule PO (10:39)
[2019-04-17] MEDS: amLODIPine 5 MG Tablet PO (10:40)
[2019-04-17] MEDS: Magnesium Oxide 400 MG Tablet PO ×2 (10:40→22:49)
[2019-04-17] MEDS: Psyllium 1 PACKET PO ×2 (10:47→22:49)
[2019-04-17 11:12] VITALS: O2SAT 99
[2019-04-17] MEDS: 0.9% Normal Saline 1,000 ML 125 ML IV ×2 (11:33→20:15)
--- NOTE | 2019-04-17 12:45 | CASEMGMT ---
LOREN MCCORMACK Assessment Readmission Note: Previous Admission: 03/15/19-03/18/19 Presentation: ARF secondary to dehydration. Nephrology consulted. Hypokalemia. Pt stated had lost ~11 # in past 1-2 weeks. [employer] Professional consulted. DC: Discharged home w/resumption of [facility]: custodial. F/U: To see PCP Dr John Sears in 5-[address] Azevedo in 1-2 weeks. Current Admission: Presentation: JERO, dehydration, orthostasis PCP: Dr John Sears Specialists: Dr Cook--pt state she has not made initial appt with him yet and states does not have his contact information. Pt provided with his contact information: address and phone number. Pt states is going to call his office today to make an appt. [facility] physician for treatment of sarcoidosis (does not remember his name). States sees a surgeon at [facility] for ileostomy but does not remember his name. States sees a neurologist and has an appt on Apr 21, but does not remember his name. Pt states the information is at her home. Preferred pharmacy: [facility] Insurance: [employer] Prescription benefit: yes Pt states she is still active with [facility]. Pt states she wishes to return home at discharge with her and resumption of HHC. Call placed to prior number documented for [facility] and no answer. Call placed to [facility]. They stated that [facility] office has closed down and the HHC agency is now [facility]. They confirmed pt is active with them and is receiving Skilled nsg services. They were notified of pt's admission to hospital. Order placed for resumption of HHC. [facility]. PH: [phone]. Intake: Option #5. DC Plan: Home with resumption of HHC services: custodial. PT/OT evals pending. Jackelyn MONREAL RN, CM
[2019-04-17 13:53] LABS: Pathologist Review Reviewed
[2019-04-17 13:53] LABS: Pathologist Review Reviewed
[2019-04-17 16:25] VITALS: BP 128/80; PULSE 68; RESP 18; TEMP 36.8; O2SAT 98
[2019-04-17 21:00] VITALS: BP 130/87; PULSE 88; RESP 18; TEMP 36.7; O2SAT 100
[2019-04-17] MEDS: Atorvastatin Calcium 10 MG Tablet PO (22:48)
[2019-04-17] MEDS: Gabapentin 600 MG Tablet PO (22:49)
[2019-04-17] MEDS: Mirtazapine 30 MG Tablet PO (22:50)
[2019-04-18] MEDS: Loperamide 2 MG Capsule PO ×2 (03:04→08:45)
[2019-04-18 03:06] VITALS: BP 125/85; PULSE 94; RESP 18; TEMP 37.3; O2SAT 98
[2019-04-18] MEDS: Morphine 2 MG/ML Syringe IV (03:19)
[2019-04-18] MEDS: 0.9% Normal Saline 1,000 ML 125 ML IV (04:18)
[2019-04-18] MEDS: Benzonatate 100 MG Capsule PO (06:11)
[2019-04-18 07:05] VITALS: O2SAT 96
[2019-04-18 08:03] LABS: Absolute Lymphocyte Count 3.51 X10^3/uL (0.83-4.51); Absolute Neutrophil Count 6.9 X10^3/uL (2.0-7.7); Basophil% 1.4 % (0-1); Eosinophil# 1.03 X10^3/uL; Eosinophils% 7.3 % (0-5); Hematocrit 29.3 % (37-47); Hemoglobin 10.4 g/dL (12.0-15.0); Lymphocyte # 3.51 X10^3/ul (4.0); Mean Corp Hgb Conc 35.5 g/dL (32-36); Mean Corpuscular Hgb 27.4 pg (27.0-32.0); Mean Corpuscular Volume 77.3 fL (81-99); Mean Platelet Vol. 8.7 fl (6.2-12.0); Monocyte# 2.35 X10^3/uL; Monocyte% 16.7 % (0-10); NRBC Flagged by Analyzer 0 % (0-5); Neutrophil # 6.85 X10^3/uL (2.7-7.7); Neutrophil % 48.9 % (47-70); POSITIVE DIFFERENTIAL YES; Platelet Count 253 K/mm3 (150-450); RBC Distribution Width CV 14.8 % (11.6-14.6); RBC Distribution Width SD 41.4 fl (35.1-43.9); Red Blood Count 3.79 M/mm3 (4.2-5.4)
[2019-04-18 08:08] LABS: Differential Indicated SCAN CRITERIA MET
[2019-04-18 08:24] LABS: Anion Gap 8 (5-15); BUN 8 mg/dL (7-18); BUN/Creat Ratio 7.8 RATIO (10-20); Calcium,Total 7.9 mg/dL (8.5-10.1); Chloride 113 mmol/L (98-107); Creatinine, Serum 1.03 mg/dL (0.55-1.02); EST Glomerular Filtration Rate 60 mL/min (>60); Est Glom Filt Rate - Afr Amer 72 mL/min (>60); Estimated Creatinine Clearance 45.07 ml/min; Glucose 93 mg/dL (74-106); Magnesium 1.6 mg/dL (1.6-2.6); Potassium 3.7 mmol/L (3.5-5.1); Sodium Level 142 mmol/L (136-145)
[2019-04-18] MEDS: oxyCODONE 5 MG Tablet 10 MG PO (08:44)
[2019-04-18] MEDS: Gabapentin 300 MG Capsule PO (08:45)
[2019-04-18] MEDS: Folic Acid 1 MG Tablet PO (08:45)
[2019-04-18 09:03] LABS: Microcytosis 1+
[2019-04-18 09:07] VITALS: BP 132/87; PULSE 88; RESP 18; TEMP 36.9; O2SAT 98
--- NOTE | 2019-04-18 09:55 | DCINST_ITS ---
- Discharge Diagnoses Current Active Problems: Current Active and Chronic Problems (Last Updated 02/25/19 @ 14:59 by Idalia Blankenship MD) Acute kidney failure (Acute) Generalized weakness (Acute) You will use the following diet at home:: No restrictions Your food should be the consistency of: Regular Discharge Activity: May not drive while taking narcotic pain medications. Allergies/Adverse Reactions: Allergies cephalexin monohydrate [From Keflex] Allergy (Mild, Verified 04/16/19 17:29) Itching doxycycline Adverse Reaction (Verified 04/16/19 17:29) Vomiting moxifloxacin HCl [From Avelox] Adverse Reaction (Verified 04/16/19 17:29) Vomiting Medications to take at Discharge Albuterol Aerosols [Ventolin Aerosols] 2.5 mg INHALATION Q2H PRN PRN 08/13/17 Magnesium 400 mg PO BID 12/28/18 Magnesium Hydroxide [Milk Of Magnesia] 30 ml PO DAILY PRN PRN 12/28/18 Metoprolol Tartrate 25 mg PO DAILY 12/28/18 Tizanidine HCl [Zanaflex] 2 - 4 mg PO BID PRN PRN 12/28/18 Albuterol Inhaler [Ventolin Hfa] 1 - 2 puff INHALATION Q4H PRN PRN 02/25/19 Duloxetine HCl 60 mg PO DAILY 02/25/19 Fluticasone Propionate [Flonase Allergy Relief] 2 spray IH DAILY 02/25/19 Folic Acid 1 mg PO DAILY@0800 02/25/19 Gabapentin 300 mg PO BID 02/25/19 Gabapentin 600 mg PO QHS 02/25/19 Guaifenesin [Mucinex] 600 mg PO BID 02/25/19 Ipratropium [Atrovent Inhaler] 1 puff INHALATION Q6H PRN PRN 02/25/19 Loperamide HCl [Imodium A-D] 2 mg PO PRN PRN 02/25/19 Mirtazapine [Remeron] 30 mg PO QHS 02/25/19 Potassium Citrate [Potassium Citrate ER] 5 meq PO DAILY 02/25/19 Clonidine HCl 0.2 mg PO BID #60 tab 03/18/19 Ensure Enlive 120 ml PO 4X/DAY liquid 04/18/19 Oxycodone [Oxyir] 10 mg PO Q4H PRN PRN 3 Days #16 tablet 04/18/19 The following prescriptions were given: Oxycodone [Oxyir] 10 mg PO Q4H PRN PRN 3 Days #16 tablet PRN Reason: Pain Transmission Status: Sent to [facility]30 Primary Care Physician: John Sears MD [Primary Care Provider] - Please follow up with your Primary Care Physician in: in 5-7 days Test Results: Test results from this visit will be discussed in further detail at your follow- up appointment, if applicable. Proposed Discharge Date: 04/18/19
--- NOTE | 2019-04-18 09:57 | DS.PCM_ITS ---
Discharge Date and Diagnosis - Problem List Patient Problems: Active and Suspected Problems (Last Updated 02/25/19 @ 14:59 by Idalia Blankenship MD) Acute kidney failure (Acute) Generalized weakness (Acute) Date of Admission: 04/16/19 Date of Discharge: 04/18/19 - Primary Discharge Diagnosis Active and Suspected Problems (Last Updated 02/25/19 @ 14:59 by Idalia Blankenship MD) Acute kidney failure (Acute) Generalized weakness (Acute) - Secondary Discharge Diagnosis Chronic Problems (Last Updated 02/25/19 @ 14:59 by Idalia Blankenship MD) Chronic respiratory failure (Chronic) Bronchiectasis (Chronic) Asthma (Chronic) COPD (chronic obstructive pulmonary disease) (Chronic) Chronic pain (Chronic) Leukocytosis (Chronic) HTN (hypertension) (Chronic) Sarcoidosis (Chronic) Hospital Course and Treatment Imaging Results: Clinical Impression(s) from Imaging Studies Chest X-Ray 04/17/19 01:23 IMPRESSION: There is a central venous line on the right with tip is at the cavoatrial junction is in good position. Chronic interstitial lung disease. Electronically Signed: Rosa Ortiz, at 3:07 EDT Tel , Service support , Operations: None Summary of Care Provided: 53-year-old old who presented with progressive generalized weakness and fall. She was found to have acute kidney injury admitted to regular nursing floor where she is currently being managed 1. Acute kidney injury: Secondary to dehydration from high output osteotomy. Admitted to the regular nursing floor being managed with IV fluids resolved at the time of discharge 2. Lactic acidosis attributed to patient hypovolemia on admission no evidence of infection was found 3. Hypovolemic hyponatremia managed with IV fluids with monitoring of electrolyte 4. History of ileostomy following small bowel obstruction 5. Sarcoidosis patient was previously on leflunomide however this was not listed on patient's home meds on admission; was also previously on Bactrim which was discontinued in view of acute kidney injury 6. Moderate persistent asthma with frequent exacerbations did continue with patient aerosol treatment 7. Hypertension patient on clonidine blood pressure controlled 8. Chronic hypoxic respiratory failure due to sarcoidosis: On 3 L of oxygen which is her baseline. 9. Severe protein-calorie malnutrition: Evidenced by decreased energy level as well as BMI of 18.2 consult placed to dietitian 10. DVT prophylaxis SC heparin Patient Problems: Active and Suspected Problems (Last Updated 02/25/19 @ 14:59 by Idalia Blankenship MD) Acute kidney failure (Acute) Generalized weakness (Acute) Objective: GENERAL: Frail looking HEENT: Atraumatic; EYES; Anicteric, Normal Conjunctiva NECK; supple, normal thyroid, RESPIRATORY: Diminished to auscultation bilaterally, CARDIOVASCULAR: Regular S1 S2, GI: soft, non-tender, normoactive bowel sounds, : No Renal angle tenderness; EXTREMITIES: No edema, no clubbing, MUSCULOSKELETAL: No Joint Tenderness; NEURO: Awake; no lateralizing signs. SKIN: No Rash PSYCH; Normal affect - Physical Exam Vital Signs Temp Pulse Resp BP Pulse Ox 98.4 F 88 18 132/87 H 98 04/18/19 09:07 04/18/19 09:07 04/18/19 09:07 04/18/19 09:07 04/18/19 09:07 Oxygen Delivery Method Room Air Weight: 45.2 kg Body Mass Index (BMI) 18.2 Finger Stick Blood Glucose 156 Intake and Output for Last 24 Hours 04/16/19 04/17/19 04/18/19 23:59 23:59 23:59 Intake Total 2225 / 2225 5836.00 / 6396.00 2160 / 2160 Output Total 650 / 650 300 / 300 Balance 2225 / 2225 5186.00 / 5746.00 1860 / 1860 Laboratory Tests Past 24 Hrs 04/16/19 04/17/19 04/18/19 18:05 05:47 07:56 WBC 14.0 H RBC 3.79 L Hgb 10.4 L Hct 29.3 L MCV 77.3 L MCH 27.4 MCHC 35.5 RDW Std Deviation 41.4 RDW Coeff of Mary 14.8 H Plt Count 253 MPV 8.7 Immature Gran % (Auto) 0.700 Neut % (Auto) 48.9 Lymph % (Auto) 25.0 Kimball % (Auto) 16.7 H Eos % (Auto) 7.3 H Baso % (Auto) 1.4 H Absolute Neuts (auto) 6.9 Absolute Lymphs (auto) 3.51 Nucleated RBC % 0 Diff Path Review Reviewed Reviewed May foll Microcytosis 1+ Sodium Potassium Chloride Carbon Dioxide Anion Gap BUN Creatinine Estim Creat Clear Calc Est GFR (MDRD) Af Amer Est GFR (MDRD) Non-Af BUN/Creatinine Ratio Glucose Calcium Magnesium 04/18/19 07:56 WBC RBC Hgb Hct MCV MCH MCHC RDW Std Deviation RDW Coeff of Mary Plt Count MPV Immature Gran % (Auto) Neut % (Auto) Lymph % (Auto) Kimball % (Auto) Eos % (Auto) Baso % (Auto) Absolute Neuts (auto) Absolute Lymphs (auto) Nucleated RBC % Diff Path Review Microcytosis Sodium 142 Potassium 3.7 Chloride 113 H Carbon Dioxide 21.0 Anion Gap 8 BUN 8 Creatinine 1.03 H Estim Creat Clear Calc 45.07 Est GFR (MDRD) Af Amer 72 Est GFR (MDRD) Non-Af 60 BUN/Creatinine Ratio 7.8 L Glucose 93 Calcium 7.9 L Magnesium 1.6 Discharge Diet: No Restrictions Discharge Activity: May not drive while taking narcotic pain medications. Home Medications: Medications to take at Discharge Albuterol Aerosols [Ventolin Aerosols] 2.5 mg INHALATION Q2H PRN PRN 08/13/17 Magnesium 400 mg PO BID 12/28/18 Magnesium Hydroxide [Milk Of Magnesia] 30 ml PO DAILY PRN PRN 12/28/18 Metoprolol Tartrate 25 mg PO DAILY 12/28/18 Tizanidine HCl [Zanaflex] 2 - 4 mg PO BID PRN PRN 12/28/18 Albuterol Inhaler [Ventolin Hfa] 1 - 2 puff INHALATION Q4H PRN PRN 02/25/19 Duloxetine HCl 60 mg PO DAILY 02/25/19 Fluticasone Propionate [Flonase Allergy Relief] 2 spray IH DAILY 02/25/19 Folic Acid 1 mg PO DAILY@0800 02/25/19 Gabapentin 300 mg PO BID 02/25/19 Gabapentin 600 mg PO QHS 02/25/19 Guaifenesin [Mucinex] 600 mg PO BID 02/25/19 Ipratropium [Atrovent Inhaler] 1 puff INHALATION Q6H PRN PRN 02/25/19 Loperamide HCl [Imodium A-D] 2 mg PO PRN PRN 02/25/19 Mirtazapine [Remeron] 30 mg PO QHS 02/25/19 Potassium Citrate [Potassium Citrate ER] 5 meq PO DAILY 02/25/19 Clonidine HCl 0.2 mg PO BID #60 tab 03/18/19 Ensure Enlive 120 ml PO 4X/DAY liquid 04/18/19 Oxycodone [Oxyir] 10 mg PO Q4H PRN PRN 3 Days #16 tab 04/18/19 Following Prescrptions Were Given to Patient: Oxycodone [Oxyir] 10 mg PO Q4H PRN PRN 3 Days #16 tab PRN Reason: Pain Transmission Status: Received by [facility] [facility]30 Primary Care Physician: John Sears MD [Primary Care Provider] - Please follow up with your Primary Care Physician in: in 5-7 days Disposition: Home Minutes spent on discharge:: 35 Patient Condition:: Stable Medical Necessity - Tobacco Use Smoking Status: Former smoker Tobacco Use: Non-smoker Meaningful Use Info Meaningful Use Diagnoses (Choose all that apply): None applicable Code Visit Inpatient E&M: 21097 Disch Hosp
[2019-04-18] MEDS: Psyllium 1 PACKET PO (11:03)
[2019-04-18] MEDS: Fluticasone 0.05% 1 SPRAY NASAL.SRY 2 SPRAY NASAL (11:03)
[2019-04-18 11:04] VITALS: PULSE 88
[2019-04-18] MEDS: DULoxetine Hcl 60 MG Capsule PO (11:04)
[2019-04-18] MEDS: Metoprolol Tartrate 25 MG Tablet PO (11:04)
[2019-04-18] MEDS: Magnesium Oxide 400 MG Tablet PO (11:04)
[2019-04-18] MEDS: amLODIPine 5 MG Tablet PO (11:04)
[2019-04-18] MEDS: cloNIDine HCl 0.2 MG Tablet PO (11:04)
[2019-04-18] MEDS: Heparin Injection (Vial) 5,000 UNIT/ML VIAL 5000 UNIT SC (11:05)
[2019-04-18 11:45] VITALS: BP 138/88; PULSE 77; RESP 18; TEMP 37; O2SAT 98
--- NOTE | 2019-04-22 09:43 | CASEMGMT ---
Call placed to [facility]. Verified with Lexie that they are aware pt was discharged on 04/18 with the need for resumption of care. Lexie states they are aware and that care was resumed on 04/21/19. Call placed to pt in follow-up to discharge. Voicemail received and message left requesting call back. Matilde Knott RN
[2019-04-22 12:14] LABS: Pathologist Review Reviewed
== END 2019-04-18 11:47 | disposition home health service (06) | DRG 682 ==
LOC: ED 18:16 → MS3 21:38
PROVIDERS: Admitting Provider Family Medicine; Emergency Provider Emergency Medicine; Family Provider Family Medicine; PCP Family Medicine; Referring Provider Family Medicine; Visit Provider Internal Medicine
DX: N17.9 Acute kidney failure, unspecified (principal); E43 Unspecified severe protein-calorie malnutrition; Z68.1 Body mass index [BMI] 19.9 or less, adult; E87.1 Hypo-osmolality and hyponatremia; E87.2 Acidosis; J96.11 Chronic respiratory failure with hypoxia; E86.0 Dehydration; D86.9 Sarcoidosis, unspecified; J45.40 Moderate persistent asthma, uncomplicated; Z99.81 Dependence on supplemental oxygen; Z93.2 Ileostomy status; I10 Essential (primary) hypertension; G89.4 Chronic pain syndrome; Z87.891 Personal history of nicotine dependence; J47.9 Bronchiectasis, uncomplicated
CPT/HCPCS: 36415; 71045; 80048; 80053; 83605; 83735; 84100; 85025; 97162; 97166; 97802; 99285; J7030; J7040; A4216

== ENCOUNTER 2019-04-22 15:22 | Emergency (ER) | payer MEDICARE, SELFPAY ==
[2019-04-22 15:22] VITALS: BP 143/120; PULSE 93; RESP 20; TEMP 36.1; O2SAT 96; BMI 19.9
--- NOTE | 2019-04-22 15:28 | ED.VISSUMM ---
- ER Visit Summary Date of Service: 04/22/19 Chief Complaint: Heroin overdose History of Present Illness: The patient is a 53 F presenting after heroin overdose. Patient states she wanted to try heroin today. She states she has never used it before. She states she snorted it. Her called EMS when she was found unresponsive. She was given Narcan x2 per EMS with improvement. She has no symptoms on arrival. She denies other drug use. She denies suicidal ideation. Physical Examination: Vitals are stable. Patient is afebrile. Alert no acute distress. HEENT exam is unremarkable. Neck is supple. Lungs are clear and equal bilaterally. Heart is regular rate and rhythm. Abdomen is soft nontender nondistended. Extremities are unremarkable. Skin is warm and dry. No focal neurologic deficit. Remainder of exam is unremarkable. Emergency Department Course and Treatment: Patient was observed in the ED. She remains asymptomatic in the ED. She states she will never use heroin again. She continues to deny suicidal ideation. She will be discharged with family. Disposition: Discharge home Impression: Heroin overdose This note was generated with [employer] dictation software. It may contain incorrect words, spelling, and punctuation that were not noted in review of the chart prior to signing ED Disposition - Plan for ED Patient: Instructions: OVERDOSE, Opiate Referrals: John Sears MD [Primary Care Provider] -
--- NOTE | 2019-04-22 15:31 | ED.DEP ---
ED Disposition - Plan for ED Patient: Instructions: OVERDOSE, Opiate Referrals: John Sears MD [Primary Care Provider] -
--- NOTE | 2019-04-22 15:53 | ED.RN ---
CONTACTED PER PT REQUEST. STATES HE IS ENROUTE TO THE HOSPITAL
[2019-04-22 17:06] VITALS: BP 144/108; PULSE 78; RESP 16; O2SAT 99
== END 2019-04-22 17:11 | disposition home or self-care (01) ==
LOC: ED 15:54
PROVIDERS: Emergency Provider Emergency Medicine; Family Provider Family Medicine; PCP Family Medicine
DX: T40.1X1A Poisoning by heroin, accidental (unintentional), initial encounter (principal); Y92.9 Unspecified place or not applicable; Z79.899 Other long term (current) drug therapy
CPT/HCPCS: 99285; J7030

== ENCOUNTER → 2019-04-24 12:10 | Outpatient (CLI) | payer MEDICARE, SELFPAY ==
[2019-04-22 15:22] VITALS: BMI 19.9
[2019-04-24 14:57] LABS: ALB/GLOB Ratio 0.8 RATIO (0.9-2.4); AST(SGOT) 63 U/L (15-37); Alanine Aminotransfer ALT/SGPT 43 U/L (13-56); Albumin, Serum 4.1 g/dL (3.2-5.0); Alkaline Phosphatase 164 U/L (45-117); Anion Gap 11 (5-15); BUN 13 mg/dL (7-18); BUN/Creat Ratio 12.3 RATIO (10-20); Calcium,Total 9.7 mg/dL (8.5-10.1); Chloride 104 mmol/L (98-107); Creatinine, Serum 1.06 mg/dL (0.55-1.02); EST Glomerular Filtration Rate 58 mL/min (>60); Est Glom Filt Rate - Afr Amer 70 mL/min (>60); Glucose 80 mg/dL (74-106); Magnesium 1.4 mg/dL (1.6-2.6); Potassium 4.2 mmol/L (3.5-5.1); Protein, Total 9.1 g/dL (6.4-8.2); Sodium Level 136 mmol/L (136-145)
[2019-04-25 14:53] LABS: Amphetamine Urine VISTA NEGATIVE (<1000 ng/mL); Barbiturate Urine VISTA NEGATIVE (< 200 ng/mL); Benzodiazepine Urine VISTA NEGATIVE (< 200 ng/mL); Cocaine Urine VISTA NEGATIVE (< 300 ng/mL); Ecstacy Urine VISTA NEGATIVE (< 500 ng/mL); Methadone Urine VISTA NEGATIVE (< 300 ng/mL); PCP Urine VISTA NEGATIVE (< 25 ng/mL); THC Urine VISTA NEGATIVE (< 50 ng/mL); Vista UDS pH Range 5
== END ==
PROVIDERS: Family Provider Family Medicine; PCP Family Medicine; Referring Provider Family Medicine; Visit Provider Family Medicine
DX: E87.8 Other disorders of electrolyte and fluid balance, not elsewhere classified (principal); M54.10 Radiculopathy, site unspecified
CPT/HCPCS: 36415; 80053; 80307; 83735

== ENCOUNTER → 2019-05-17 08:58 | Outpatient (CLI) | payer MEDICARE, SELFPAY ==
[2019-04-22 15:22] VITALS: BMI 19.9
[2019-05-17 09:48] LABS: Absolute Lymphocyte Count 2.55 X10^3/uL (0.83-4.51); Absolute Neutrophil Count 9.5 X10^3/uL (2.0-7.7); Basophil# 0.18 X10^3/uL; Basophil% 1.2 % (0-1); Eosinophils% 7.7 % (0-5); Hematocrit 33.1 % (37-47); Hemoglobin 11.4 g/dL (12.0-15.0); Lymphocyte # 2.55 X10^3/ul (4.0); Lymphocyte % 16.3 % (19-41); Mean Corp Hgb Conc 34.4 g/dL (32-36); Mean Corpuscular Hgb 26.7 pg (27.0-32.0); Mean Corpuscular Volume 77.5 fL (81-99); Monocyte# 2.11 X10^3/uL; Monocyte% 13.5 % (0-10); NRBC Flagged by Analyzer 0 % (0-5); Neutrophil # 9.51 X10^3/uL (2.7-7.7); Neutrophil % 60.8 % (47-70); POSITIVE COUNT YES; POSITIVE DIFFERENTIAL YES; Platelet Count 289 K/mm3 (150-450); RBC Distribution Width CV 15.3 % (11.6-14.6); RBC Distribution Width SD 41.7 fl (35.1-43.9); Red Blood Count 4.27 M/mm3 (4.2-5.4); White Blood Count 15.6 K/mm3 (4.4-11.0)
[2019-05-17 10:09] LABS: Differential Indicated SCAN CRITERIA MET
[2019-05-17 10:10] LABS: Anisocytosis 2+; Hypochromasia 2+; Microcytosis 1+; Platelet Estimate ADEQUATE (ADEQ); Platelet Morphology LARGE; Target Cells 2+
[2019-05-17 10:12] LABS: Differential Comment SCANNED
[2019-05-17 11:06] LABS: ALB/GLOB Ratio 0.7 RATIO (0.9-2.4); AST(SGOT) 25 U/L (15-37); Alanine Aminotransfer ALT/SGPT 20 U/L (13-56); Albumin, Serum 3.4 g/dL (3.2-5.0); Alkaline Phosphatase 185 U/L (45-117); Anion Gap 7 (5-15); BUN 9 mg/dL (7-18); Chloride 101 mmol/L (98-107); Creatinine, Serum 1.13 mg/dL (0.55-1.02); EST Glomerular Filtration Rate 53 mL/min (>60); Est Glom Filt Rate - Afr Amer 65 mL/min (>60); Globulin 4.9 g/dL (2.2-4.2); Glucose 105 mg/dL (74-106); Magnesium 1.4 mg/dL (1.6-2.6); Potassium 3.5 mmol/L (3.5-5.1); Protein, Total 8.3 g/dL (6.4-8.2); Sodium Level 129 mmol/L (136-145)
[2019-05-19 10:00] LABS: Pathologist Review Reviewed
[2019-05-19 11:38] LABS: Fats, Neutral Normal (.); Fats, Total Normal (.)
== END ==
PROVIDERS: Family Provider Family Medicine; PCP Family Medicine; Referring Provider Family Medicine; Visit Provider Family Medicine
DX: M54.10 Radiculopathy, site unspecified (principal); E83.42 Hypomagnesemia; R11.0 Nausea; R19.7 Diarrhea, unspecified
CPT/HCPCS: 36415; 80053; 82274; 82705; 83630; 83735; 85025; 87177; 87209; 87493

== ENCOUNTER → 2019-05-20 11:53 | Outpatient (CLI) | payer MEDICARE, SELFPAY ==
[2019-04-22 15:22] VITALS: BMI 19.9
[2019-05-20 16:01] LABS: Anion Gap 10 (5-15); BUN 9 mg/dL (7-18); Calcium,Total 9.6 mg/dL (8.5-10.1); Chloride 101 mmol/L (98-107); Creatinine, Serum 1.13 mg/dL (0.55-1.02); EST Glomerular Filtration Rate 53 mL/min (>60); Est Glom Filt Rate - Afr Amer 65 mL/min (>60); Glucose 197 mg/dL (74-106); Potassium 4.4 mmol/L (3.5-5.1); Sodium Level 134 mmol/L (136-145)
[2019-05-20 16:33] LABS: Microalbumin:Creatinine Ratio 15.4 mg/g CRE (<30 mg/g CRE); Urine Sodium 88 mmol/L (Not Establ.)
== END ==
PROVIDERS: Family Provider Family Medicine; PCP Family Medicine; Referring Provider Family Medicine; Visit Provider Family Medicine
DX: E87.1 Hypo-osmolality and hyponatremia (principal)
CPT/HCPCS: 36415; 80048; 82043; 82570; 84300

== ENCOUNTER → 2019-05-29 16:58 | Outpatient (CLI) | payer MEDICARE, SELFPAY ==
[2019-05-29 17:38] LABS: Absolute Neutrophil Count 6.3 X10^3/uL (2.0-7.7); Basophil# 0.27 X10^3/uL; Eosinophil# 1.02 X10^3/uL; Eosinophils% 7.7 % (0-5); Hemoglobin 9.9 g/dL (12.0-15.0); Lymphocyte % 30.1 % (19-41); Mean Corpuscular Hgb 25.6 pg (27.0-32.0); Mean Corpuscular Volume 77.5 fL (81-99); Mean Platelet Vol. 9.2 fl (6.2-12.0); Monocyte# 1.68 X10^3/uL; Monocyte% 12.6 % (0-10); NRBC Flagged by Analyzer 0 % (0-5); Neutrophil # 6.25 X10^3/uL (2.7-7.7); POSITIVE DIFFERENTIAL YES; POSITIVE MORPHOLOGY YES; Platelet Count 454 K/mm3 (150-450); RBC Distribution Width CV 14.9 % (11.6-14.6); RBC Distribution Width SD 41.7 fl (35.1-43.9); Red Blood Count 3.87 M/mm3 (4.2-5.4); White Blood Count 13.3 K/mm3 (4.4-11.0)
[2019-05-29 17:49] LABS: Differential Indicated SCAN CRITERIA MET
[2019-05-29 18:13] LABS: ALB/GLOB Ratio 0.6 RATIO (0.9-2.4); AST(SGOT) 21 U/L (15-37); Alanine Aminotransfer ALT/SGPT 15 U/L (13-56); Albumin, Serum 3.2 g/dL (3.2-5.0); Alkaline Phosphatase 177 U/L (45-117); Anion Gap 6 (5-15); BUN 10 mg/dL (7-18); BUN/Creat Ratio 10.4 RATIO (10-20); Calcium,Total 9.3 mg/dL (8.5-10.1); Chloride 103 mmol/L (98-107); Creatinine, Serum 0.96 mg/dL (0.55-1.02); EST Glomerular Filtration Rate 65 mL/min (>60); Est Glom Filt Rate - Afr Amer 78 mL/min (>60); Globulin 5.5 g/dL (2.2-4.2); Glucose 73 mg/dL (74-106); Magnesium 1.5 mg/dL (1.6-2.6); Protein, Total 8.7 g/dL (6.4-8.2); Sodium Level 135 mmol/L (136-145)
[2019-05-29 18:15] LABS: Anisocytosis RARE; Platelet Estimate SLT INC (ADEQ)
[2019-05-29 18:16] LABS: Hypochromasia 1+; Microcytosis RARE; Red Cell Morphology N CHROM NORMAL (NORM C&C)
[2019-05-30 10:14] LABS: Pathologist Review Reviewed
== END ==
PROVIDERS: Family Provider Family Medicine; PCP Family Medicine; Referring Provider Family Medicine; Visit Provider Family Medicine
DX: R19.7 Diarrhea, unspecified (principal); E87.1 Hypo-osmolality and hyponatremia
CPT/HCPCS: 36415; 80053; 83735; 85025

== ENCOUNTER → 2019-06-16 | Outpatient (CLI) | payer MEDICARE, SELFPAY ==
[2019-06-16 18:26] LABS: International Normalized Ratio 1.9
[2019-06-16 18:46] LABS: BUN 8 mg/dL (7-18); BUN/Creat Ratio 7.1 RATIO (10-20); Calcium,Total 9.2 mg/dL (8.5-10.1); Chloride 101 mmol/L (98-107); Creatinine, Serum 1.13 mg/dL (0.55-1.02); EST Glomerular Filtration Rate 53 mL/min (>60); Est Glom Filt Rate - Afr Amer 65 mL/min (>60); Glucose 94 mg/dL (74-106); Phosphorus 3.1 mg/dL (2.5-4.9); Potassium 3.8 mmol/L (3.5-5.1); Prealbumin 15.6 mg/dL (20.0-40.0); Sodium Level 135 mmol/L (136-145)
== END | disposition home or self-care (01) ==
LOC: MFPLAB 16:07
PROVIDERS: Family Provider Family Medicine; PCP Family Medicine; Visit Provider Family Medicine
DX: M79.89 Other specified soft tissue disorders (principal); E46 Unspecified protein-calorie malnutrition
CPT/HCPCS: 36415; 80069; 84134; 85610

== ENCOUNTER 2019-07-21 03:33 | Inpatient (IN) | payer MEDICARE, SELFPAY ==
[2019-07-21] VITALS (10 sets, daily range): BP systolic 104–143; BP diastolic 62–107; PULSE 63–111; RESP 15–22; TEMP 36.5–36.7; O2SAT 90–100; BMI 20.6; BMI 19.7
--- NOTE | 2019-07-21 03:40 | ED.RN ---
RN CALLED FOR EKG, PULLED OLD EKGS FOR
--- NOTE | 2019-07-21 03:55 | EKG12_ITS ---
Test Reason : SOB Blood Pressure : / mmHG Vent. Rate : 110 BPM Atrial Rate : 110 BPM P-R Int : 192 ms QRS Dur : 092 ms QT Int : 344 ms P-R-T Axes : 057 107 057 degrees QTc Int : 465 ms Sinus tachycardia Biatrial enlargement Rightward axis Abnormal ECG Confirmed by NIDIA GONZALES, MARCELINO ([id number]), medical editor SAY LITTLE ([id number]) on 07/21/2019 2:41:10 PM Referred By: ROBBIN Confirmed By:MARCELINO JACOB MD
--- NOTE | 2019-07-21 03:56 | RAD_ITS ---
STUDY: X-RAY CHEST REASON FOR EXAM: Female, 53 years old. Cough and shortness of breath. TECHNIQUE: 2 view chest COMPARISON: 01/27/2019 frontal chest. FINDINGS: Marked fibrotic changes particularly in the right lung apex and both lower lungs, similar to prior. Bilateral hilar prominence similar to prior. Heart size within normal limits. No apparent pneumothorax or pleural effusion or new lung opacities. No acute osseous abnormality. RAD/Chest PA and Lateral IMPRESSION: Marked fibrotic changes particularly in the right lung apex and both lower lungs, similar to prior. Electronically Signed: Roman Foss, at 4:40 EST Tel , Service support ,
--- NOTE | 2019-07-21 03:56 | ED.VIS.GEN ---
History of Present Illness Chief Complaint: Cold Sx Informant: Patient Narrative: She stated she has chronic sarcoidosis and COPD. Over the last couple days she has had cough with green mucus. She called her family doctor yesterday was placed on azithromycin. Comes in for further evaluation. Patient stated she continues to have cough. She has no significant shortness of breath at baseline. She is on 4 L nasal cannula due to her sarcoidosis. She has chronic pain in her lungs secondary to her sarcoidosis. She does take OxyContin for this per patient. It is been relieving her chronic pain. Patient comes in for further evaluation. No fevers or chills. - Past Medical History (1) Acute kidney failure Status: Acute (2) Acute renal failure Status: Acute (3) Fatigue Status: Acute (4) Generalized weakness Status: Acute (5) Hypokalemia Status: Acute (6) Hypokalemia Status: Acute (7) Hyponatremia Status: Acute (8) Hyponatremia Status: Acute (9) Severe dehydration Status: Acute (10) Asthma Status: Chronic (11) Bronchiectasis Status: Chronic (12) COPD (chronic obstructive pulmonary disease) Status: Chronic (13) Chronic pain Status: Chronic (14) Chronic respiratory failure Status: Chronic (15) HTN (hypertension) Status: Chronic (16) Leukocytosis Status: Chronic (17) Sarcoidosis Status: Chronic (18) Acute right-sided thoracic back pain Status: Resolved (19) Acute right-sided thoracic back pain Status: Resolved (20) Radicular pain of thoracic region Status: Resolved (21) Radicular pain of thoracic region Status: Resolved (22) Rib fractures Status: Resolved Past Medical History - Allergies and Home Meds Allergies/Adverse Reactions: Allergies cephalexin monohydrate [From Keflex] Allergy (Mild, Verified 04/22/19 15:30) Itching doxycycline Adverse Reaction (Verified 04/22/19 15:30) Vomiting moxifloxacin HCl [From Avelox] Adverse Reaction (Verified 04/22/19 15:30) Vomiting Primary Care Physician: John Sears MD [Primary Care Provider] - Prior records reviewed: Yes Past Medical History: - - see Problem list Surgical History: - - Bilateral tubal ligation. lung biopsy ' Lives: With Family Smoking Status: Former smoker Alcohol: None Drugs: None - Family History Maternal Family History: Reports: Diabetes, Hypertension, Stroke Paternal Family History: Reports: Stroke Review of Systems General: Denies: Chills, Fever, Sweats Eyes: Denies: Visual changes - bilaterally, Diplopia ENT: Denies: Rhinorrhea, Sore throat Cardiovascular: Denies: Chest pain, Palpitations Respiratory: Reports: Cough. Denies: Dyspnea, Dyspnea on exertion Gastrointestinal: Denies: Abdominal pain, Nausea, Vomiting, Diarrhea, Melena, Hematochezia Genitourinary: Denies: Dysuria, Hematuria, Frequency Musculoskeletal: Denies: Back pain, Extremity Pain Skin: Denies: Rash, Wounds Neurological: Denies: Headache, Weakness, Numbness Physical Exam Vital Signs/Narrative: Vital Signs Temp Pulse Resp BP Pulse Ox 07/21/19 03:34 97.9 F 63 22 H 143/107 H 92 General: Well nourished, Well developed, No Acute Distress Head: Normocephalic, Atraumatic Eyes: Perrl, EOMI ENT: Moist mucous membranes, No rhinorrhea Neck: Supple, Nontender Cardiovascular: Regular rhythm, No murmurs, Tachycardia Respiratory: No distress, CTA bilaterally, Chest nontender Abdomen: Soft, Nontender, Nondistended, Normal bowel sounds Back: Nontender, Normal Inspection Extremities: Nontender, No edema Skin: Normal color, No rash Neurological: Alert, Oriented x3, Cranial nerves II-XII grossly intact, Normal Strength, Normal Sensation Psychological: Normal affect, Normal Mood Diagnostic/Tx/Re-eval - Medical Decision Making KG obtained shows sinus rhythm at a rate of 110. No acute ischemia noted. Lab work chest x-ray obtained. Chest x-ray shows chronic sarcoid changes without acute infiltrate or changes. Lab work shows a leukocytosis. She has had the significant leukocytosis in the past as well. Patient also has elevation in her BUN and creatinine consistent with acute renal insufficiency. Patient stated she is not sure if she is keeping up on her fluid requirements. Given IV fluid bolus. Blood cultures and lactate obtained as well. Patient given a dose of steroids for suspected COPD/sarcoid exacerbation. She is on chronic immunosuppressant for her sarcoidosis with leflutamide. Given a dose of IV levofloxacin. ED Disposition - Plan for ED Patient: Referrals: John Sears MD [Primary Care Provider] -
[2019-07-21] MEDS: oxyCODONE 5 MG Tablet 10 MG PO ×5 (04:06→21:12)
[2019-07-21 04:37] LABS: Absolute Lymphocyte Count 2.72 X10^3/uL (0.83-4.51); Absolute Neutrophil Count 22.5 X10^3/uL (2.0-7.7); Basophil# 0.17 X10^3/uL; Basophil% 0.6 % (0-1); Eosinophil# 0.25 X10^3/uL; Eosinophils% 0.8 % (0-5); Hematocrit 30.4 % (37-47); Hemoglobin 10.3 g/dL (12.0-15.0); Lymphocyte # 2.72 X10^3/ul (4.0); Lymphocyte % 9.2 % (19-41); Mean Corp Hgb Conc 33.9 g/dL (32-36); Mean Corpuscular Hgb 26.3 pg (27.0-32.0); Mean Corpuscular Volume 77.6 fL (81-99); Mean Platelet Vol. 8.8 fl (6.2-12.0); Monocyte# 3.56 X10^3/uL; Monocyte% 12.1 % (0-10); NRBC Flagged by Analyzer 0 % (0-5); Neutrophil # 22.45 X10^3/uL (2.7-7.7); Neutrophil % 76.3 % (47-70); POSITIVE DIFFERENTIAL YES; Platelet Count 318 K/mm3 (150-450); RBC Distribution Width CV 15.6 % (11.6-14.6); RBC Distribution Width SD 43.8 fl (35.1-43.9); Red Blood Count 3.92 M/mm3 (4.2-5.4); White Blood Count 29.5 K/mm3 (4.4-11.0)
[2019-07-21 04:39] LABS: Differential Indicated SCAN CRITERIA MET
[2019-07-21 04:52] LABS: Anion Gap 8 (5-15); BUN 30 mg/dL (7-18); BUN/Creat Ratio 13.5 RATIO (10-20); Chloride 98 mmol/L (98-107); Creatinine, Serum 2.23 mg/dL (0.55-1.02); EST Glomerular Filtration Rate 24 mL/min (>60); Est Glom Filt Rate - Afr Amer 30 mL/min (>60); Estimated Creatinine Clearance 23.07 ml/min; Glucose 113 mg/dL (74-106); Potassium 4.1 mmol/L (3.5-5.1); Sodium Level 130 mmol/L (136-145)
--- NOTE | 2019-07-21 04:54 | ED.RN ---
pt reports oxyir as ineffective for her pain. dr montero aware. no new orders.
--- NOTE | 2019-07-21 05:00 | ED.RN ---
PT DOES NOT KNOW ALL OF HER MEDICATIONS/DOSES. WILL HAVE HER BRING A LIST.
[2019-07-21 05:02] LABS: Differential Comment SCANNED; Hypochromasia 2+; Target Cells 2+
--- NOTE | 2019-07-21 05:14 | PCM.HP.STD ---
Problem List (1) Acute bronchitis Status: Acute (2) Acute renal failure Status: Acute Qualifiers: Acute renal failure type: unspecified Qualified Code(s): N17.9 - Acute kidney failure, unspecified (3) Hyponatremia Status: Acute (4) Chronic respiratory failure Status: Chronic Qualifiers: Respiratory failure complication: hypoxia Qualified Code(s): J96.11 - Chronic respiratory failure with hypoxia (5) Bronchiectasis Status: Chronic Qualifiers: Bronchiectasis type: uncomplicated Qualified Code(s): J47.9 - Bronchiectasis, uncomplicated (6) Asthma Status: Chronic Qualifiers: Asthma severity: unspecified severity Asthma persistence: unspecified Asthma complication type: unspecified Qualified Code(s): J45.909 - Unspecified asthma, uncomplicated (7) COPD (chronic obstructive pulmonary disease) Status: Chronic Qualifiers: COPD type: unspecified COPD Qualified Code(s): J44.9 - Chronic obstructive pulmonary disease, unspecified (8) Chronic pain Status: Chronic Qualifiers: Chronic pain type: chronic pain syndrome Qualified Code(s): G89.4 - Chronic pain syndrome (9) Leukocytosis Status: Chronic Qualifiers: Leukocytosis type: unspecified Qualified Code(s): D72.829 - Elevated white blood cell count, unspecified (10) HTN (hypertension) Status: Chronic Qualifiers: Hypertension type: essential hypertension Qualified Code(s): I10 - Essential (primary) hypertension (11) Sarcoidosis Status: Chronic History of Present Illness Date of Admission: 07/21/19 Chief Complaint: COUGH The patient is a 53 year old F with a significant history of leukocytosis; bronchiectasis; sarcoidosis; small; COPD and on home 4 L of oxygen PRN who presented to emergency department with worsening productive cough. Her sputum is productive yellow greenish sputum. Associated with her symptoms is pain at her right chest, and some mild shortness of breath. Her pain on the chest increases which takes a deep breath or when she coughs. She has chronic nasal congestion that has not changed. The patient began taking a dose of Z-Jose Miguel before presentation. Past Medical History Past Medical History (Chronic Problems): Chronic Problems (Last Reviewed 07/21/19 @ 06:54 by Igor Raza MD) Chronic respiratory failure (Chronic) Bronchiectasis (Chronic) Asthma (Chronic) COPD (chronic obstructive pulmonary disease) (Chronic) Chronic pain (Chronic) Leukocytosis (Chronic) HTN (hypertension) (Chronic) Sarcoidosis (Chronic) Medical History: Medical History (Last Reviewed 07/21/19 @ 06:54 by Igor Raza MD) Bronchiectasis (Chronic) J47.9 Asthma (Chronic) J45.909 COPD (chronic obstructive pulmonary disease) (Chronic) J44.9 Leukocytosis (Chronic) D72.829 HTN (hypertension) (Chronic) I10 Sarcoidosis (Chronic) D86.9 Allergies cephalexin monohydrate [From Keflex] Allergy (Mild, Verified 04/22/19 15:30) Itching doxycycline Adverse Reaction (Verified 04/22/19 15:30) Vomiting moxifloxacin HCl [From Avelox] Adverse Reaction (Verified 04/22/19 15:30) Vomiting Home Medications: Ambulatory Orders Medication Instructions Recorded Albuterol Aerosols [Ventolin 2.5 mg INHALATION Q2H PRN PRN 08/13/17 Aerosols] Magnesium 400 mg PO BID 12/28/18 Magnesium Hydroxide [Milk Of 30 ml PO DAILY PRN PRN 12/28/18 Magnesia] Metoprolol Tartrate 25 mg PO DAILY 12/28/18 Tizanidine HCl [Zanaflex] 2 - 4 mg PO BID PRN PRN 12/28/18 Albuterol Inhaler [Ventolin Hfa] 1 - 2 puff INHALATION Q4H PRN PRN 02/25/19 Duloxetine HCl 60 mg PO DAILY 02/25/19 Fluticasone Propionate [Flonase 2 spray IH DAILY 02/25/19 Allergy Relief] Folic Acid 1 mg PO DAILY@0800 02/25/19 Gabapentin 300 mg PO BID 02/25/19 Gabapentin 600 mg PO QHS 02/25/19 Guaifenesin [Mucinex] 600 mg PO BID 02/25/19 Ipratropium [Atrovent Inhaler] 1 puff INHALATION Q6H PRN PRN 02/25/19 Loperamide HCl [Imodium A-D] 2 mg PO PRN PRN 02/25/19 Mirtazapine [Remeron] 30 mg PO QHS 02/25/19 Potassium Citrate [Potassium 5 meq PO DAILY 02/25/19 Citrate ER] Ensure Enlive 120 ml PO 4X/DAY liquid 04/18/19 Clonidine HCl 0.2 mg PO QHS 07/21/19 Oxycodone [Oxyir] 10 mg PO Q6H PRN PRN 07/21/19 Surgical History: Surgical History (Last Reviewed 07/21/19 @ 06:57 by Igor Raza MD) History of lung biopsy (Inactive) Z98.890 History of tubal ligation (Inactive) Z98.51 Surgical History: - - Bilateral tubal ligation. lung biopsy ' Psychiatric History: No pertinent psych hx [employer] History: No pertinent [employer] history Lives: With Family Smoking Status: Former smoker Alcohol: None Drugs: None - *Family History Maternal History Items: Diabetes, Hypertension, Stroke Paternal History Items: Stroke Review of Systems Constitutional: Reports: Chills. Denies: Fever, Weight Change HEENT: Reports: Nasal Congestion - Chronic. Denies: Head Aches, Sinus Congestion, Sinus Drainage Cardiovascular: Reports: Chest Pain - right chest, pleuritic. Denies: Palpitations Respiratory: Reports: Cough, Pleuritic Pain, Shortness of Breath - Mild, Sputum production. Denies: Shortness of breath at rest Gastrointestinal: Reports: - - With ileostomy. Denies: Abdominal Pain, Nausea, Vomiting Genitourinary: Denies: Dysuria Musculoskeletal: Denies: Joint Pain, Joint Tenderness Skin: Denies: Rash, Wounds Neurological: Denies: Numbness, Tingling, Focal weakness Psychiatric: Denies: Anxiety, Depression, Homicidal Ideations, Suicidal Ideations Hematologic/ Lymphatic: Denies: Easy Bruising, Easy Bleeding VTE Information - Inpt Only VTE Present on Admission: No VTE Mechan Device Prophylaxis: None VTE Pharm Prophylaxis ordered?: Yes Patient Problems: Active and Suspected Problems (Last Reviewed 07/21/19 @ 06:54 by Igor Raza MD) Acute bronchitis (Acute) - Physical Exam Vitals/I&O's: Vital Signs Temp Pulse Resp BP Pulse Ox 98.0 F 109 H 15 118/72 98 07/21/19 05:00 07/21/19 05:00 07/21/19 05:00 07/21/19 05:00 07/21/19 05:00 Oxygen Flow Rate (L/min) 4 Oxygen Delivery Method Nasal Cannula Weight: 51.1 kg Body Mass Index (BMI) 20.6 Finger Stick Blood Glucose 156 General: Alert, Oriented x3, Cooperative, - - Cachectic HEENT: Atraumatic, PERRLA, EOMI, Normocephalic Oral: - - No teeth; blackened lips Neck: Supple, No JVD, Negative Carotid Bruits Lungs: No rhonchi, No wheeze, Rales - Right lower quadrant Cardiovascular: Regular rate, Regular Rhythm, Normal S1, Normal S2, No murmurs, Tachycardic Abdomen: Bowel Sounds Present, Soft, Non Tender, - - Ileostomy with stool in. Extremities: No edema, Capillary Refill Less than 3 Seconds Skin: No rashes, No breakdown Musculoskeletal: No Tenderness to Palpation of Joints or Extremities Neurological: Cranial nerves II-XII grossly intact Psych/Mental Status: Normal Affect, Appropriate Laboratory Results 07/21/19 04:30: WBC 29.5 H, RBC 3.92 L, Hgb 10.3 L, Hct 30.4 L, MCV 77.6 L, MCH 26.3 L, MCHC 33.9, RDW Std Deviation 43.8, RDW Coeff of Mary 15.6 H, Plt Count 318, MPV 8.8, Immature Gran % (Auto) 1.000 H, Neut % (Auto) 76.3 H, Lymph % (Auto) 9.2 L, [place] % (Auto) 12.1 H, Eos % (Auto) 0.8, Baso % (Auto) 0.6, Absolute Neuts (auto) 22.5 H, Absolute Lymphs (auto) 2.72, Nucleated RBC % 0, Differential Comment SCANNED, Diff Path Review May foll, Hypochromasia 2+, Target Cells 2+ 07/21/19 04:30: Sodium 130 L, Potassium 4.1, Chloride 98, Carbon Dioxide 24.0, Anion Gap 8, BUN 30 H, Creatinine 2.23 H, Estim Creat Clear Calc 23.07, Est GFR (MDRD) Af Amer 30 L, Est GFR (MDRD) Non-Af 24 L, BUN/Creatinine Ratio 13.5, Glucose 113 H, Calcium 9.0 Current Medications Sodium Chloride () 500 mls @ 1,000 mls/hr IV .Q30M DWAINE Stop: 07/21/19 05:44 Assessment/Plan All Active Problems (Last Reviewed 07/21/19 @ 06:54 by Igor Raza MD) Acute bronchitis (Acute) Rib fractures (Resolved) Acute right-sided thoracic back pain (Resolved) Acute right-sided thoracic back pain (Resolved) Radicular pain of thoracic region (Resolved) Radicular pain of thoracic region (Resolved) Acute renal failure (Acute) Hyponatremia (Acute) The patient is a 53 year old F with a significant history of leukocytosis; bronchiectasis; sarcoidosis; small; COPD and on home 4 L of oxygen PRN who presented to emergency department with worsening productive cough and pleuritic right-sided chest pain and found to have severely elevated creatinine above her baseline consistent with acute bronchitis and JERO. Acute bronchitis CXR: Mild fibrotic changes particularly in the right lung apex and both lower lungs similar to. Chest x-ray and previous chest x-ray were independently reviewed. I agree with the radiologist interpretation. EKG independently reviewed confirms sinus tachycardia Albuterol as needed Patient received Solu-Medrol 125 mg at the emergency department. Consider for the use of steroids. Patient received Levaquin 750 mg IV. Consider dosing Levaquin every other day if needed because of her creatinine clearance. Oxygen as needed Monitor BMP and CBC Patient is on home oxycodone 10 mg every 6 hours. We will escalate to oxycodone 10 mg every 4 hours. Of note patient received 10 mg of oxycodone at the emergency department. Also she received 4 mg of IV morphine at the emergency department. However at the time of examination patient was crying stating that the emergency department doctor promised her pain medication IV and she has not received this. She reported that she believes that at the hospital she should be made comfortable. Discussed with patient that we will escalate her home p.o. narcotic. Acute kidney injury On presentation her creatinine was 2.23. Her creatinine 5 weeks ago was 1.13. Baseline creatinine appears to be less than 1. BUN on presentation was 30. BUN about a month ago was 8. BUN over creatinine is 13.5 indicating a probable intrinsic renal from uncorrected prerenal injury. Receive IV hydration in the emergency department. Continue maintenance IV hydration. Trend BMP Avoid nephrotoxic's. Chronic pain Patient on home oxycodone as above. She reports a diagnosis of fibromyalgia; and pain symptoms secondary to sarcoidosis. Hyponatremia Likely second to hypovolemia. IV hydration as above. Trend BMP. Fungal infection On home fluconazole DVT prophylaxis Subcutaneous Lovenox Code Visit Inpatient E&M: 81280 Init Hosp L3
[2019-07-21] MEDS: levoFLOXacin IV 750 MG/150 ML BAG 100 MG IV (05:51)
[2019-07-21] MEDS: MethylPREDNISolone 125 MG/2 ML Vial IV (05:52)
[2019-07-21] MEDS: Morphine 4 MG/ML Syringe IV (05:52)
--- NOTE | 2019-07-21 07:21 | PN_ITS ---
Patient Problems: Active and Suspected Problems (Last Reviewed 07/21/19 @ 06:54 by Igor Raza MD) Acute bronchitis (Acute) Subjective: Patient admitted this morning, notes dyspnea has improved but ongoing severe cough with primary complaint of right-sided pleuritic discomfort with coughing and with deep respiratory effort. Patient notes otherwise she is feeling improved, currently fatigued and seated upright in bed. Patient denies fevers, chills, nausea, emesis, abdominal pain, worsened dyspnea. Objective: Physical Examination: General: awake, alert, oriented x 3 and cooperative, seated upright in the [facility] bed, no acute distress, with pulmonary examination onset of notable coughing with complaint of right-sided chest discomfort with coughing. Skin: normal color, turgor, no icterus, cyanosis. HEENT: AT/NC, EOMI, PERRLA, dry MM, no carotid bruits or JVD noted. Lungs: Severely diminished breath sounds, mildly increased effort, mildly increased respiratory rate, notable coughing elicited with examination, occasional and expiratory wheezing, no obvious rales or rhonchi currently. Heart: Regular rate and rhythm; no gallop, rub audible. Abdomen: soft, cachectic, NTTP, ND, normal BS, no HSM. Extremities: no cyanosis, clubbing, or edema, obvious muscle wasting. Neurological: patient awake, alert, oriented x 3; cognitive function intact; pupils equally reactive to light and accomodation; cranial nerves II-XII grossly normal, moving all 4 extremities, no focal deficits, strength severely global decrease secondary to acute presentation. Psychiatric: affect appears fatigued, no acute evidence of depressive or anxiety feelings. Vitals/I&O's: Vital Signs Temp Pulse Resp BP Pulse Ox 97.8 F 105 H 20 H 104/62 97 07/21/19 06:46 07/21/19 06:46 07/21/19 06:46 07/21/19 06:46 07/21/19 06:46 Oxygen Flow Rate (L/min) 3 Oxygen Delivery Method Nasal Cannula Weight: 107 lb 12.897 oz Body Mass Index (BMI) 19.7 Finger Stick Blood Glucose 156 Laboratory Results 07/21/19 04:30: WBC 29.5 H, RBC 3.92 L, Hgb 10.3 L, Hct 30.4 L, MCV 77.6 L, MCH 26.3 L, MCHC 33.9, RDW Std Deviation 43.8, RDW Coeff of Mary 15.6 H, Plt Count 318, MPV 8.8, Immature Gran % (Auto) 1.000 H, Neut % (Auto) 76.3 H, Lymph % (Auto) 9.2 L, [place] % (Auto) 12.1 H, Eos % (Auto) 0.8, Baso % (Auto) 0.6, Absolute Neuts (auto) 22.5 H, Absolute Lymphs (auto) 2.72, Nucleated RBC % 0, Differential Comment SCANNED, Diff Path Review December foll, Hypochromasia 2+, Target Cells 2+ 07/21/19 04:30: Sodium 130 L, Potassium 4.1, Chloride 98, Carbon Dioxide 24.0, Anion Gap 8, BUN 30 H, Creatinine 2.23 H, Estim Creat Clear Calc 23.07, Est GFR (MDRD) Af Amer 30 L, Est GFR (MDRD) Non-Af 24 L, BUN/Creatinine Ratio 13.5, Glucose 113 H, Calcium 9.0 07/21/19 05:20: Lactic Acid 1.0 STROKE Vital Signs/Narrative: Vital Signs Temp Pulse Resp BP Pulse Ox 07/21/19 06:46 97.8 F 105 H 20 H 104/62 97 07/21/19 05:00 98.0 F 109 H 15 118/72 98 07/21/19 04:18 97.9 F 111 H 20 H 130/79 H 90 07/21/19 03:34 97.9 F 63 22 H 143/107 H 92 Medical Necessity - Tobacco Use Smoking Status: Former smoker Assessment/Plan All Active Problems (Last Reviewed 07/21/19 @ 06:54 by Igor Raza MD) Acute bronchitis (Acute) Rib fractures (Resolved) Acute right-sided thoracic back pain (Resolved) Acute right-sided thoracic back pain (Resolved) Radicular pain of thoracic region (Resolved) Radicular pain of thoracic region (Resolved) Acute renal failure (Acute) Hyponatremia (Acute) The patient is a 53 y/o F w/ PMHx: Former Tobacco use, Sarcoidosis, Chronic COPD/Asthma, Bronchiectasis w/ Chronic Hypoxic Respiratory Failure (4L NC), Chronic Pain Syndrome, HTN, HLD, Anxiety and Depression who presents to the [facility] ED on 07/21/19 with history of progressively worsening dyspnea with productive cough of yellow-green sputum with pleuritic right-sided chest discomfort, worse with deep inspiration and coughing prompting presentation to the ED with recent initiation of Z-Jose Miguel. 1. Acute on Chronic COPD/Asthma exacerbation w/ Acute Bronchitis: CXR w/ chronic changes, CBC on admission w/ WBC 29.5 with notable left shift. Admitted to NE, maintain on oxygen with wean as tolerated to home oxygen supplementation, continue ATC duonebs, PRN albuterol, IV methylprednisolone, HOB, IS parameters, IV Levaquin w/ renal dosing given presentation with pending sputum cultures and respiratory viral panel. 2. Acute hyponatremia, hypovolemic: Admission sodium 130, JERO concurrently, will continue to hydrate, hold nephrotoxic regimen, repeat BMP in a.m. 3. Acute kidney injury: Secondary to acute presentation #1. Admission BUN/Cr 30/2.23, prior baseline creatinine noted to be 1.1-1.3 in the past has transiently been elevated and acute presentations. Will hydrate, hold nephrotoxic medications and repeat chemistry in AM. If no improvement would plan FeNa renal ultrasound assessment. 4. Hypertension: Continue home regimen including metoprolol, clonidine, PRN hydralazine. 5. Chronic pain syndrome: We will continue patient home Zanaflex, Cymbalta, gabapentin, oxycodone. 6. Anxiety and depression: We will continue home duloxetine, Remeron regimen. 7. Severe protein calorie malnutrition: Evidenced per BMI, habitus, muscle and fat loss evident, nutrition consulted. 8. DVT prophylaxis: SCDs, lovenox. Code Visit Procedures: Other Procedure - See Report - Not billable: admitted after midnight
[2019-07-21] MEDS: 0.9% Normal Saline 1,000 ML 150 ML IV ×2 (08:23→16:41)
[2019-07-21] MEDS: Folic Acid 1 MG Tablet PO (08:25)
[2019-07-21] MEDS: Metoprolol Tartrate 25 MG Tablet PO (08:25)
[2019-07-21] MEDS: Magnesium Oxide 400 MG Tablet PO ×2 (08:25→21:12)
[2019-07-21] MEDS: Gabapentin 300 MG Capsule PO ×2 (08:26→16:42)
[2019-07-21] MEDS: guaiFENesin 1,200 MG Tablet 1200 MG PO (08:26)
[2019-07-21] MEDS: DULoxetine Hcl 60 MG Capsule PO (08:26)
[2019-07-21] MEDS: Acetaminophen 325 MG Tablet 650 MG PO ×3 (08:26→22:42)
[2019-07-21] MEDS: Enoxaparin 30 MG/0.3 ML Syringe SC (08:26)
[2019-07-21] MEDS: Fluticasone 0.05% 1 SPRAY NASAL.SRY NASAL (10:22)
[2019-07-21] MEDS: tiZANidine HCl 2 MG Tablet PO (10:22)
[2019-07-21] MEDS: guaiFENesin/Codeine 5 ML UDC PO ×3 (10:22→22:42)
--- NOTE | 2019-07-21 10:48 | NURSING ---
Was consulted on patient for ileostomy. pt is known to this nurse. Pt has been doing self care with ostomy for over 4 months now. Pt denies needs or assistance at this time. has had no trouble getting supplies, etc. pt aware to call for needs.
[2019-07-21 12:36] LABS: Pathologist Review Reviewed
--- NOTE | 2019-07-21 12:56 | CASEMGMT ---
RN CM Assessment Presentation: COPD, asthma exacerbation with acute bronchitis Intro role of CM and purpose of RN CM assessment. Demographics, PCP and Pharmacy verified. Pt states she lives at home with her . Is independent and does not use DME. Pt has ileostomy- independent in care. PCP: Dr. John Sears Specialists: Lifestyle Coordinator @ [facility] Preferred Pharmacy: [facility] Insurance: [employer] Prescription Benefit: yes LNOK: , Chava Lai Living Arrangements: Lives independently with her . States does not require any care assist with ADL's. Transportation: drives DME: Home Oxygen, concentrator, portable tank, nebulizer. Pt is not sure which company. Attempted call to [employer] as pt had [employer] in past. No answer- message states they are nt able to accept call. HHC: none SNF: none Patient DC goals: Home DC PLAN: Home on discharge Sera MONREAL RN ACM
--- NOTE | 2019-07-21 14:00 | CASEMGMT ---
Social Work Note SW completed Palliative Care Screening tool. SW met with pt and introduced self and role at [facility]. Pt is alert and orientated x3. SW educated pt on Palliative Care. Pt receptive to education but denied wanting a referral made at this time. SW provided pt with Palliative Care brochure. Dominique Jalloh SHEEP CLIPPER, MARKETING CONSULTANT
[2019-07-21] MEDS: 0.9% Saline Lock 10 ML Syringe IV (14:30)
[2019-07-21] MEDS: Benzonatate 100 MG Capsule PO (18:27)
[2019-07-21] MEDS: hydrOXYzine PAM 25 MG Capsule PO (18:28)
[2019-07-21] MEDS: cloNIDine HCl 0.2 MG Tablet PO (21:11)
[2019-07-21] MEDS: Mirtazapine 30 MG Tablet PO (21:13)
[2019-07-21] MEDS: Gabapentin 600 MG Tablet PO (21:18)
[2019-07-22] VITALS (7 sets, daily range): BP systolic 122–152; BP diastolic 77–93; PULSE 77–88; RESP 18–20; TEMP 36.6–37.2; O2SAT 92–100
[2019-07-22] MEDS: 0.9% Normal Saline 1,000 ML 150 ML IV ×2 (01:12→07:46)
--- NOTE | 2019-07-22 06:38 | NURSING ---
Gave Marcos PIMENTEL [facility] results lab called.
[2019-07-22 06:58] LABS: Absolute Lymphocyte Count 1.64 X10^3/uL (0.83-4.51); Absolute Neutrophil Count 11.9 X10^3/uL (2.0-7.7); Basophil# 0.02 X10^3/uL; Basophil% 0.1 % (0-1); Hematocrit 27.6 % (37-47); Hemoglobin 9.4 g/dL (12.0-15.0); Lymphocyte # 1.64 X10^3/ul (4.0); Lymphocyte % 11.2 % (19-41); Mean Corp Hgb Conc 34.1 g/dL (32-36); Mean Corpuscular Hgb 26.3 pg (27.0-32.0); Mean Corpuscular Volume 77.3 fL (81-99); Mean Platelet Vol. 9.2 fl (6.2-12.0); Monocyte# 0.91 X10^3/uL; Monocyte% 6.2 % (0-10); NRBC Flagged by Analyzer 0 % (0-5); Neutrophil # 11.89 X10^3/uL (2.7-7.7); Neutrophil % 81.3 % (47-70); Platelet Count 354 K/mm3 (150-450); RBC Distribution Width CV 15.3 % (11.6-14.6); RBC Distribution Width SD 42.1 fl (35.1-43.9); Red Blood Count 3.57 M/mm3 (4.2-5.4); White Blood Count 14.6 K/mm3 (4.4-11.0)
--- NOTE | 2019-07-22 07:06 | PCM.PN.HOSP ---
Patient Problems: Active and Suspected Problems (Last Reviewed 07/21/19 @ 06:54 by Igor Raza MD) Acute bronchitis (Acute) Subjective: Patient notes feeling markedly improved since initial presentation with less than coughing, resolving wheezing and decreased malaise. She does complain of body aches which are chronic and she takes chronic narcotic therapy for this and has frequently asked for increased doses despite this being her baseline. Discussed current presentation and poor follow-up with pulmonary and patient is amenable to Dr. Chun consultation with transition to his group for closer follow-up. Patient denies fevers, chills, nausea, emesis, abdominal pain, chest pain or worsened or recurrent dyspnea. Objective: Physical Examination: General: awake, alert, oriented x 3 and cooperative, seated upright in the MedSur bed, no acute distress, moving with greater ease, no coughing. Skin: normal color, turgor, no icterus, cyanosis. HEENT: AT/NC, EOMI, PERRLA, MMM. Lungs: Notably improved breath sounds throughout, improved effort, still remains diminished, greater bases, currently no rales, rhonchi or wheezing. Heart: Regular rate and rhythm; no gallop, rub audible. Abdomen: soft, cachectic habitus, NTTP, ND, normal BS. Extremities: no cyanosis, clubbing, or edema. Neurological: patient awake, alert, oriented x 3; cognitive function intact; pupils equally reactive to light and accomodation; cranial nerves II-XII grossly normal, moving all 4 extremities, no focal deficits, strength improving, moderately global decreased, worsens with exertional attempts. Psychiatric: affect appears improved, cheerful, no acute evidence of depressive or anxiety feelings. Vitals/I&O's: Vital Signs Temp Pulse Resp BP Pulse Ox 98.1 F 82 18 142/91 H 93 07/22/19 05:20 07/22/19 05:20 07/22/19 05:20 07/22/19 05:20 07/22/19 05:20 Oxygen Flow Rate (L/min) 3 Oxygen Delivery Method Nasal Cannula Weight: 107 lb 12.897 oz Body Mass Index (BMI) 19.7 Finger Stick Blood Glucose 156 Intake and Output for Last 24 Hours 07/20/19 07/21/19 07/22/19 23:59 23:59 23:59 Intake Total 3130 / 3130 680 / 680 Output Total 100 / 100 Balance 3030 / 3030 680 / 680 Microbiology Past 72 Hours 07/21/19 05:20 Blood Culture (Wb) - Anticubital Left Blood Culture - Preliminary 07/21/19 13:20 Mucosa - Nasopharyngeal Respiratory Panel (PCR) - Preliminary Laboratory Results 07/21/19 04:30: Diff Path Review Reviewed 07/22/19 06:30: WBC 14.6 H, RBC 3.57 L, Hgb 9.4 L, Hct 27.6 L, MCV 77.3 L, MCH 26.3 L, MCHC 34.1, RDW Std Deviation 42.1, RDW Coeff of Mary 15.3 H, Plt Count 354, MPV 9.2, Immature Gran % (Auto) 1.200 H, Neut % (Auto) 81.3 H, Lymph % (Auto) 11.2 L, Ralls % (Auto) 6.2, Eos % (Auto) 0.0, Baso % (Auto) 0.1, Absolute Neuts (auto) 11.9 H, Absolute Lymphs (auto) 1.64, Nucleated RBC % 0 07/22/19 06:30: Sodium Pending, Potassium Pending, Chloride Pending, Carbon Dioxide Pending, Anion Gap Pending, BUN Pending, Creatinine Pending, Est GFR (MDRD) Af Amer Pending, Est GFR (MDRD) Non-Af Pending, BUN/Creatinine Ratio Pending, Glucose Pending, Calcium Pending Current Medications Acetaminophen (Tylenol) 650 mg PO Q6H PRN PRN PRN Reason: Pain Score 1-3/Temp > 100.7 F Last Admin: 07/21/19 22:42 Dose: 650 mg Documented by: Albuterol Sulfate (Ventolin Aerosols) 2.5 mg INHALATION Q2H PRN PRN PRN Reason: Shortness of Breath/Wheezing Benzonatate (Tessalon Perle) 100 mg PO TID PRN PRN PRN Reason: COUGH Last Admin: 07/21/19 18:27 Dose: 100 mg Documented by: Clonidine (Catapres) 0.2 mg PO QHS DWAINE Last Admin: 07/21/19 21:11 Dose: 0.2 mg Documented by: Dextrose (D50w Syringe) 0 gm IV X1 PRN; Protocol PRN Reason: Hypoglycemia Duloxetine HCl (Cymbalta) 60 mg PO DAILY [facility] Last Admin: 07/21/19 08:26 Dose: 60 mg Documented by: Enoxaparin Sodium (Lovenox) 30 mg SC DAILY [facility] Last Admin: 07/21/19 08:26 Dose: 30 mg Documented by: Fluticasone Propionate (Flonase Nasal [place]) 0 spray NASAL DAILY [facility] Last Admin: 07/21/19 10:22 Dose: 2 spray Documented by: Folic Acid (Folic Acid) 1 mg PO DAILY@0800 [facility] Last Admin: 07/21/19 08:25 Dose: 1 mg Documented by: Gabapentin (Neurontin) 300 mg PO BIDCM [facility] Last Admin: 07/21/19 16:42 Dose: 300 mg Documented by: Gabapentin (Neurontin) 600 mg PO QHS [facility] Last Admin: 07/21/19 21:18 Dose: 600 mg Documented by: Glucagon () 1 mg IM .X1 PRN PRN Reason: Hypoglycemia Guaifenesin/Codeine Phosphate (Robitussin Ac) 5 ml PO Q6H PRN PRN PRN Reason: severe cough Last Admin: 07/21/19 22:42 Dose: 5 ml Documented by: Hydroxyzine Pamoate (Vistaril Pamoate Capsule) 25 mg PO Q12H PRN PRN PRN Reason: ITCHING Last Admin: 07/21/19 18:28 Dose: 25 mg Documented by: Sodium Chloride () 1,000 mls @ 150 mls/hr IV .Q6H40M [facility] Stop: 07/22/19 07:21 Last Admin: 07/22/19 01:12 Dose: 150 mls/hr Documented by: Levofloxacin (Levaquin Iv) 250 mg in 50 mls @ 100 mls/hr IV Q24 [facility] Sodium Chloride () 250 mls @ 15 mls/hr IV .[id number] PRN PRN Reason: Saline Flush Loperamide HCl (Imodium) 2 mg PO TID PRN PRN PRN Reason: Diarrhea Magnesium Oxide (Mag-Ox 400) 400 mg PO BID [facility] Last Admin: 07/21/19 21:12 Dose: 400 mg Documented by: Methylprednisolone (Solu-Medrol) 40 mg IV Q8 [facility] Last Admin: 07/22/19 06:00 Dose: 40 mg Documented by: Metoprolol Tartrate (Lopressor (Beta Carine)) 25 mg PO DAILY [facility] Last Admin: 07/21/19 08:25 Dose: 25 mg Documented by: Mirtazapine (Remeron) 30 mg PO QHS [facility] Last Admin: 07/21/19 21:13 Dose: 30 mg Documented by: Nutritional Formula (Lactose Free) (Ensure Clear) 120 ml PO 4X/DAY [facility] Last Admin: 07/21/19 21:24 Dose: Not Given Documented by: Ondansetron HCl (Zofran) 4 mg IV Q8H PRN PRN PRN Reason: NAUSEA/VOMITING Oxycodone HCl (Oxyir) 10 mg PO Q4H PRN PRN PRN Reason: Pain Score 4-5/10 Last Admin: 07/21/19 21:12 Dose: 10 mg Documented by: Sodium Chloride () 10 - 40 ml IV UD PRN PRN Reason: SALINE FLUSH Last Admin: 07/21/19 14:30 Dose: 10 ml Documented by: Tizanidine HCl (Zanaflex) 2 - 4 mg PO BID PRN PRN PRN Reason: muscle spasms Last Admin: 07/21/19 10:22 Dose: 2 mg Documented by: STROKE Vital Signs/Narrative: Vital Signs Temp Pulse Resp BP Pulse Ox 07/22/19 05:20 98.1 F 82 18 142/91 H 93 Medical Necessity - Tobacco Use Smoking Status: Former smoker Assessment/Plan All Active Problems (Last Reviewed 07/21/19 @ 06:54 by Igor Raza MD) Acute bronchitis (Acute) Rib fractures (Resolved) Acute right-sided thoracic back pain (Resolved) Acute right-sided thoracic back pain (Resolved) Radicular pain of thoracic region (Resolved) Radicular pain of thoracic region (Resolved) Acute renal failure (Acute) Hyponatremia (Acute) The patient is a 53 y/o F w/ PMHx: Former Tobacco use, Sarcoidosis, Chronic COPD/Asthma, Bronchiectasis w/ Chronic Hypoxic Respiratory Failure (4L NC), Chronic Pain Syndrome, HTN, HLD, Anxiety and Depression who presents to the [facility] ED on 07/21/19 with history of progressively worsening dyspnea with productive cough of yellow-green sputum with pleuritic right-sided chest discomfort, worse with deep inspiration and coughing prompting presentation to the ED with recent initiation of Z-Jose Miguel. 1. Acute on Chronic COPD/Asthma exacerbation w/ Acute Bronchitis: CXR w/ chronic changes, CBC on admission w/ WBC 29.5 with notable left shift. Admitted to [place], maintain on oxygen with wean as tolerated to home oxygen supplementation, continue ATC duonebs, PRN albuterol, IV methylprednisolone-?07/22/19 prednisone, HOB, IS parameters, IV Levaquin w/ renal dosing given presentation with pending sputum cultures and respiratory viral panel preliminary negative. Blood culture 1/2 gram positive cocci clusters; however, afebrile, stable VS, possible contaminant, repeat cultures requested. 07/22/19 CBC w/ WBC 14.6 with improved shift. Patient is interested in establishing with Dr. Alcides Chun and given that patient is been poor follow-up at the [facility] will request Dr. Chun evaluation. Given patient clinical improvement as noted transitioning from IV Solu-Medrol to prednisone taper. If continued improvement possible discharge 07/23/2019 a.m. 2. Acute hyponatremia, hypovolemic: Admission sodium 130, JERO concurrently, hydrated, 07/22/19 Na 137. 3. Acute kidney injury: Secondary to acute presentation #1. Admission BUN/Cr 30/2.23, prior baseline creatinine noted to be 1.1-1.3 in the past has transiently been elevated and acute presentations. Hydrated, held nephrotoxic medications, repeat 07/22/19 BUN/Cr 22/1.49, improving. 4. Hypertension: Continue home regimen including metoprolol, clonidine, PRN hydralazine. 5. Chronic pain syndrome: We will continue patient home Zanaflex, Cymbalta, gabapentin, oxycodone. 6. Anxiety and depression: We will continue home duloxetine, Remeron regimen. 7. Severe protein calorie malnutrition: Evidenced per BMI, habitus, muscle and fat loss evident, nutrition consulted. 8. Hx Mesenteric Ischemia: From history, noted prior prior clot in the abdomen she notes with resulting mesenteric ischemia with partial colectomy requiring ostomy. She notes that there are upcoming plans if cleared by pulmonary for ostomy reversal. 9. DVT prophylaxis: SCDs, lovenox. Code Visit Inpatient E&M: 71561 Subs Hosp L2
[2019-07-22 07:51] LABS: Anion Gap 7 (5-15); BUN 22 mg/dL (7-18); BUN/Creat Ratio 14.8 RATIO (10-20); Calcium,Total 8.6 mg/dL (8.5-10.1); Chloride 108 mmol/L (98-107); Creatinine, Serum 1.49 mg/dL (0.55-1.02); EST Glomerular Filtration Rate 39 mL/min (>60); Est Glom Filt Rate - Afr Amer 47 mL/min (>60); Estimated Creatinine Clearance 33.71 ml/min; Glucose 106 mg/dL (74-106); Potassium 4.4 mmol/L (3.5-5.1); Sodium Level 137 mmol/L (136-145)
[2019-07-22] MEDS: Gabapentin 300 MG Capsule PO ×2 (08:17→16:23)
[2019-07-22] MEDS: Metoprolol Tartrate 25 MG Tablet PO (08:18)
[2019-07-22] MEDS: Enoxaparin 30 MG/0.3 ML Syringe SC (08:18)
[2019-07-22] MEDS: Magnesium Oxide 400 MG Tablet PO ×2 (08:18→21:10)
[2019-07-22] MEDS: Folic Acid 1 MG Tablet PO (08:19)
[2019-07-22] MEDS: DULoxetine Hcl 60 MG Capsule PO (08:19)
[2019-07-22] MEDS: Fluticasone 0.05% 1 SPRAY NASAL.SRY NASAL (08:20)
[2019-07-22] MEDS: oxyCODONE 5 MG Tablet 10 MG PO ×4 (08:23→20:23)
[2019-07-22] MEDS: Acetaminophen 325 MG Tablet 650 MG PO ×2 (08:23→20:24)
[2019-07-22] MEDS: guaiFENesin/Codeine 5 ML UDC PO ×2 (08:23→16:24)
[2019-07-22] MEDS: levoFLOXacin IV 250 MG/50 ML BAG 100 MG IV (10:20)
[2019-07-22] MEDS: Loperamide 2 MG Capsule PO (10:25)
[2019-07-22] MEDS: tiZANidine HCl 2 MG Tablet PO (12:31)
[2019-07-22] MEDS: Benzonatate 100 MG Capsule PO (12:31)
--- NOTE | 2019-07-22 14:40 | PCM.CONS.PUL ---
Problem List (1) Radicular pain of thoracic region Status: Resolved (2) Acute renal failure Status: Acute Qualifiers: Acute renal failure type: unspecified Qualified Code(s): N17.9 - Acute kidney failure, unspecified (3) Severe dehydration Status: Inactive (4) Acute kidney failure Status: Acute (5) Generalized weakness Status: Inactive (6) Chronic respiratory failure Status: Chronic Qualifiers: Respiratory failure complication: hypoxia Qualified Code(s): J96.11 - Chronic respiratory failure with hypoxia (7) Bronchiectasis Status: Chronic Qualifiers: Bronchiectasis type: uncomplicated Qualified Code(s): J47.9 - Bronchiectasis, uncomplicated (8) Asthma Status: Chronic Qualifiers: Asthma severity: unspecified severity Asthma persistence: unspecified Asthma complication type: unspecified Qualified Code(s): J45.909 - Unspecified asthma, uncomplicated (9) Chronic pain Status: Chronic Qualifiers: Chronic pain type: chronic pain syndrome Qualified Code(s): G89.4 - Chronic pain syndrome (10) HTN (hypertension) Status: Chronic Qualifiers: Hypertension type: essential hypertension Qualified Code(s): I10 - Essential (primary) hypertension (11) Sarcoidosis Status: Chronic Reason for Consult Date of Consultation: 07/22/19 Reason for Consultation: Sarcoidosis History of Present Illness: The patient is a 53 year old F, with past medical history listed below and well-known to me from multiple admissions in the past, who presents to [facility] on 07/21/2019 secondary to progressive shortness of breath and productive cough. Patient reportedly started to have symptoms 3 days prior to presentation. Patient reports that she started to have some sinus congestion and a cough. This progressed to chest pain. Patient described the chest pain as achy and localized to the right lower chest. This was worse with deep inhalation. Patient states this had progressed despite compliance with her 4 L nasal cannula. Patient does have a long history of sarcoidosis and takes oxycodone for chronic pain. Patient did not report any fevers or chills. In the ER, patient was noted to be tachycardic with marginal blood pressures of 92%. Chest x-ray showed chronic changes, but lab work showed a significant leukocytosis with acute kidney injury. Patient was given an IV fluid bolus, cultures obtained and bronchodilators. Patient was also given steroids and Levaquin and admitted to the floor for further evaluation. Since being admitted to the hospital, patient reports significant improvement in overall condition. Patient still has coughing, but feels this is much improved compared to previous. Patient does have chronic body aches and states that these are at baseline. Patient states the pain is improving. Oxygenation has improved to 93% on 3 L nasal cannula. Patient does have a history of sarcoidosis in the past that is reportedly treated with leflunomide. Patient states that she follows up with [facility] on an intermittent basis. Patient has been seen multiple times in the hospital with similar type presentations. Patient has been offered follow-up in our office, but has declined at this point. Patient denies any hemoptysis. Review of systems otherwise negative from a constitutional, HEENT, respiratory, cardiovascular, GI, genitourinary, musculoskeletal, skin, neurologic, psychiatric and hematologic system unless stated above. Past Medical History Past Medical History (Chronic Problems): Chronic Problems (Last Reviewed 07/21/19 @ 06:54 by Igor Raza MD) Chronic respiratory failure (Chronic) Bronchiectasis (Chronic) Asthma (Chronic) COPD (chronic obstructive pulmonary disease) (Chronic) Chronic pain (Chronic) Leukocytosis (Chronic) HTN (hypertension) (Chronic) Sarcoidosis (Chronic) Medical History: Medical History (Last Reviewed 07/21/19 @ 06:54 by Igor Raza MD) Bronchiectasis (Chronic) J47.9 Asthma (Chronic) J45.909 COPD (chronic obstructive pulmonary disease) (Chronic) J44.9 Leukocytosis (Chronic) D72.829 HTN (hypertension) (Chronic) I10 Sarcoidosis (Chronic) D86.9 Allergies cephalexin monohydrate [From Keflex] Allergy (Mild, Verified 04/22/19 15:30) Itching doxycycline Adverse Reaction (Verified 04/22/19 15:30) Vomiting moxifloxacin HCl [From Avelox] Adverse Reaction (Verified 04/22/19 15:30) Vomiting Home Medications: Ambulatory Orders Medication Instructions Recorded Albuterol Aerosols [Ventolin 2.5 mg INHALATION Q2H PRN PRN 08/13/17 Aerosols] Magnesium 400 mg PO BID 12/28/18 Magnesium Hydroxide [Milk Of 30 ml PO DAILY PRN PRN 12/28/18 Magnesia] Metoprolol Tartrate 25 mg PO DAILY 12/28/18 Tizanidine HCl [Zanaflex] 2 - 4 mg PO BID PRN PRN 12/28/18 Albuterol Inhaler [Ventolin Hfa] 1 - 2 puff INHALATION Q4H PRN PRN 02/25/19 Duloxetine HCl 60 mg PO DAILY 02/25/19 Fluticasone Propionate [Flonase 2 spray IH DAILY 02/25/19 Allergy Relief] Folic Acid 1 mg PO DAILY@0800 02/25/19 Gabapentin 300 mg PO BID 02/25/19 Gabapentin 600 mg PO QHS 02/25/19 Guaifenesin [Mucinex] 600 mg PO BID PRN 02/25/19 Ipratropium [Atrovent Inhaler] 1 puff INHALATION Q6H PRN PRN 02/25/19 Loperamide HCl [Imodium A-D] 2 mg PO TID PRN 02/25/19 Mirtazapine [Remeron] 30 mg PO QHS 02/25/19 Potassium Citrate [Potassium 5 meq PO DAILY 02/25/19 Citrate ER] Ensure Enlive 120 ml PO 4X/DAY liquid 04/18/19 Clonidine HCl 0.2 mg PO QHS 07/21/19 Oxycodone [Oxyir] 10 mg PO Q6H PRN PRN 07/21/19 Psyllium Husk/Aspartame [Metamucil 3.4 gm PO 4X/DAY 07/21/19 Fiber Singles Packet] Surgical History: Surgical History (Last Reviewed 07/21/19 @ 06:57 by Igor Raza MD) History of lung biopsy (Inactive) Z98.890 History of tubal ligation (Inactive) Z98.51 Surgical History: - - Bilateral tubal ligation. lung biopsy ' Psychiatric History: No pertinent psych hx [employer] History: No pertinent [employer] history Lives: With Family Smoking Status: Former smoker Alcohol: None Drugs: None - *Family History Maternal History Items: Diabetes, Hypertension, Stroke Paternal History Items: Stroke Review of Systems Comment: See HPI Patient Problems: Active and Suspected Problems (Last Reviewed 07/21/19 @ 06:54 by Igor Raza MD) Acute bronchitis (Acute) Objective: All imaging was personally reviewed. Chest x-ray appears to be grossly unchanged compared to previous. - Physical Exam Vitals/I&O's: Vital Signs Temp Pulse Resp BP Pulse Ox 36.6 C 87 20 H 152/93 H 100 07/22/19 10:45 07/22/19 10:45 07/22/19 10:45 07/22/19 10:45 07/22/19 10:45 Oxygen Flow Rate (L/min) 2 Oxygen Delivery Method Nasal Cannula Weight: 48.9 kg Body Mass Index (BMI) 19.7 Finger Stick Blood Glucose 156 Intake and Output for Last 24 Hours 07/20/19 07/21/19 07/22/19 23:59 23:59 23:59 Intake Total 3130 / 3130 2460 / 2460 Output Total 100 / 100 Balance 3030 / 3030 2460 / 2460 General: Alert, Oriented x3, Cooperative, No apparent distress, - - No conversational dyspnea. Thin build. HEENT: Atraumatic, PERRLA, EOMI, Normocephalic, - - Slight scleral injection without icterus Oral: Moist Mucosa, No Gingival or Mucosal Lesions/ Ulcerations Neck: Supple, No JVD, No Nodes, Trachea Midline Lungs: No rhonchi, Rales - Bilateral, Wheezes - At end exhalation, - - Symmetric expansion. No dullness to percussion. Cardiovascular: Regular rate, Regular Rhythm, Normal S1, Normal S2, No murmurs, No rub noted, No Gallop Abdomen: Bowel Sounds Present, Soft, Non Tender, Non-Distended Extremities: No cyanosis, No edema, Capillary Refill Less than 3 Seconds, Clubbing Skin: No rashes, No breakdown Musculoskeletal: No Tenderness to Palpation of Joints or Extremities Lymphatic: No Cervical, Supraclavicular, or Inguinal Adenopathy Neurological: Cranial nerves II-XII grossly intact, Neuro grossly intact, Motor Exam 5/5 strength throughout Psych/Mental Status: Anxious, Restless Microbiology Past 72 Hours 07/22/19 05:00 Sputum, Expectorated/Coughed Gram Stain - Final 07/21/19 05:20 Blood Culture (Wb) - Anticubital Left Bacteria Detection (PCR) - Final Staphylococcus aureus 07/21/19 05:20 Blood Culture (Wb) - Anticubital Left Blood Culture - Preliminary 07/21/19 13:20 Mucosa - Nasopharyngeal Respiratory Panel (PCR) - Preliminary Laboratory Results 07/22/19 06:30: WBC 14.6 H, RBC 3.57 L, Hgb 9.4 L, Hct 27.6 L, MCV 77.3 L, MCH 26.3 L, MCHC 34.1, RDW Std Deviation 42.1, RDW Coeff of Mary 15.3 H, Plt Count 354, MPV 9.2, Immature Gran % (Auto) 1.200 H, Neut % (Auto) 81.3 H, Lymph % (Auto) 11.2 L, Delta % (Auto) 6.2, Eos % (Auto) 0.0, Baso % (Auto) 0.1, Absolute Neuts (auto) 11.9 H, Absolute Lymphs (auto) 1.64, Nucleated RBC % 0 07/22/19 06:30: Sodium 137, Potassium 4.4, Chloride 108 H, Carbon Dioxide 22.0, Anion Gap 7, BUN 22 H, Creatinine 1.49 H, Estim Creat Clear Calc 33.71, Est GFR (MDRD) Af Amer 47 L, Est GFR (MDRD) Non-Af 39 L, BUN/Creatinine Ratio 14.8, Glucose 106, Calcium 8.6 Clinical Impression(s) from Imaging Studies Chest X-Ray 07/21/19 03:56 IMPRESSION: Marked fibrotic changes particularly in the right lung apex and both lower lungs, similar to prior. Electronically Signed: Gilmarjayleen Pipo, at 4:40 EST Tel , Service support , Current Medications Acetaminophen (Tylenol) 650 mg PO Q6H PRN PRN PRN Reason: Pain Score 1-3/Temp > 100.7 F Last Admin: 07/22/19 08:23 Dose: 650 mg Documented by: Albuterol Sulfate (Ventolin Aerosols) 2.5 mg INHALATION Q2H PRN PRN PRN Reason: Shortness of Breath/Wheezing Benzonatate (Tessalon Perle) 100 mg PO TID PRN PRN PRN Reason: COUGH Last Admin: 07/22/19 12:31 Dose: 100 mg Documented by: Clonidine (Catapres) 0.2 mg PO QHS [facility] Last Admin: 07/21/19 21:11 Dose: 0.2 mg Documented by: Dextrose (D50w Syringe) 0 gm IV X1 PRN; Protocol PRN Reason: Hypoglycemia Duloxetine HCl (Cymbalta) 60 mg PO DAILY [facility] Last Admin: 07/22/19 08:19 Dose: 60 mg Documented by: Enoxaparin Sodium (Lovenox) 30 mg SC DAILY [facility] Last Admin: 07/22/19 08:18 Dose: 30 mg Documented by: Fluticasone Propionate (Flonase Nasal [place]) 0 spray NASAL DAILY [facility] Last Admin: 07/22/19 08:20 Dose: 2 spray Documented by: Folic Acid (Folic Acid) 1 mg PO DAILY@0800 [facility] Last Admin: 07/22/19 08:19 Dose: 1 mg Documented by: Gabapentin (Neurontin) 300 mg PO BIDCM [facility] Last Admin: 07/22/19 08:17 Dose: 300 mg Documented by: Gabapentin (Neurontin) 600 mg PO QHS [facility] Last Admin: 07/21/19 21:18 Dose: 600 mg Documented by: Glucagon () 1 mg IM .X1 PRN PRN Reason: Hypoglycemia Guaifenesin/Codeine Phosphate (Robitussin Ac) 5 ml PO Q6H PRN PRN PRN Reason: severe cough Last Admin: 07/22/19 08:23 Dose: 5 ml Documented by: Hydroxyzine Pamoate (Vistaril Pamoate Capsule) 25 mg PO Q12H PRN PRN PRN Reason: ITCHING Last Admin: 07/21/19 18:28 Dose: 25 mg Documented by: Levofloxacin (Levaquin Iv) 250 mg in 50 mls @ 100 mls/hr IV Q24 [facility] Last Infusion: 07/22/19 10:50 Dose: Infused Documented by: Sodium Chloride () 250 mls @ 15 mls/hr IV .[id number] PRN PRN Reason: Saline Flush Loperamide HCl (Imodium) 2 mg PO TID PRN PRN PRN Reason: Diarrhea Last Admin: 07/22/19 10:25 Dose: 2 mg Documented by: Magnesium Oxide (Mag-Ox 400) 400 mg PO BID [facility] Last Admin: 07/22/19 08:18 Dose: 400 mg Documented by: Metoprolol Tartrate (Lopressor (Beta Carine)) 25 mg PO DAILY [facility] Last Admin: 07/22/19 08:18 Dose: 25 mg Documented by: Mirtazapine (Remeron) 30 mg PO QHS [facility] Last Admin: 07/21/19 21:13 Dose: 30 mg Documented by: Nutritional Formula (Lactose Free) (Ensure Clear) 120 ml PO 4X/DAY [facility] Last Admin: 07/22/19 08:18 Dose: Not Given Documented by: Ondansetron HCl (Zofran) 4 mg IV Q8H PRN PRN PRN Reason: NAUSEA/VOMITING Oxycodone HCl (Oxyir) 10 mg PO Q4H PRN PRN PRN Reason: Pain Score 4-5/10 Last Admin: 07/22/19 12:31 Dose: 10 mg Documented by: Prednisone () 40 mg PO DAILY@0800 [facility] Sodium Chloride () 10 - 40 ml IV UD PRN PRN Reason: SALINE FLUSH Last Admin: 07/21/19 14:30 Dose: 10 ml Documented by: Tizanidine HCl (Zanaflex) 2 - 4 mg PO BID PRN PRN PRN Reason: muscle spasms Last Admin: 07/22/19 12:31 Dose: 2 mg Documented by: Assessment/Plan All Active Problems (Last Reviewed 07/21/19 @ 06:54 by Igor Raza MD) Acute bronchitis (Acute) Rib fractures (Resolved) Acute right-sided thoracic back pain (Resolved) Acute right-sided thoracic back pain (Resolved) Radicular pain of thoracic region (Resolved) Radicular pain of thoracic region (Resolved) Acute renal failure (Acute) Hyponatremia (Acute) Acute kidney failure (Acute) RECOMMENDATIONS: 1. Continue with current antibiotics 2. Agree with transition to prednisone and wean over the next 12 to 14 days 3. We will need to get records from [facility] 4. Walking oximetry prior to discharge 5. Continue aggressive hydration IMPRESSIONS: 1. Acute on chronic exacerbation secondary to COPD/sarcoidosis Patient with relatively advanced chronic changes on chest x-ray. Patient came in with leukocytosis and notable shift. Patient has responded very well to current therapy. Patient does have a blood culture that is come back as MRSA, but leukocytosis is significantly improved, patient is afebrile and pain is improving. Unclear if this represents true infection. Reasonable to continue with Levaquin therapy from my perspective. Patient can be transition to prednisone and wean over the next 12 to 14 days. Would be happy to evaluate patient as an outpatient and try to assume care, but patient has not followed up as an outpatient previously. If discharged tomorrow, will likely follow-up in our office in 2 weeks with nurse practitioner to ensure improvement. 2. Acute kidney injury/hypovolemic hyponatremia Baseline creatinine appears to be approximately 1.2. Patient does admit to some decreased p.o. intake, so prerenal etiology is suspected. Blood pressures have been stable. Continue aggressive hydration. Will recheck labs tomorrow morning. Patient sodium is responding to hydration. 3. Hypertension/chronic pain syndrome/anxiety/depression/severe protein malnutrition/history of colectomy/history of noncompliance Complicates care, management, recovery and prognosis. Okay to continue with baseline medications. Stressed to the patient the importance of close pulmonary follow-up to avoid future complications. Code Visit Inpatient E&M: 33740 Init Hosp L2
[2019-07-22] MEDS: Albuterol 2.5 MG/3 ML VIAL.NEB. INHALATION (17:09)
[2019-07-22] MEDS: Mirtazapine 30 MG Tablet PO (21:10)
[2019-07-22] MEDS: Gabapentin 600 MG Tablet PO (21:10)
[2019-07-22] MEDS: cloNIDine HCl 0.2 MG Tablet PO (21:10)
[2019-07-23] VITALS (9 sets, daily range): BP systolic 124–160; BP diastolic 87–109; PULSE 75–82; RESP 18; TEMP 36.5–36.8; O2SAT 94–100
[2019-07-23] MEDS: oxyCODONE 5 MG Tablet 10 MG PO ×2 (05:49→10:25)
[2019-07-23 06:24] LABS: Absolute Lymphocyte Count 3.76 X10^3/uL (0.83-4.51); Absolute Neutrophil Count 15.8 X10^3/uL (2.0-7.7); Basophil# 0.12 X10^3/uL; Basophil% 0.6 % (0-1); Eosinophil# 0.03 X10^3/uL; Eosinophils% 0.1 % (0-5); Hematocrit 31.1 % (37-47); Hemoglobin 10.3 g/dL (12.0-15.0); Lymphocyte # 3.76 X10^3/ul (4.0); Lymphocyte % 17.4 % (19-41); Mean Corp Hgb Conc 33.1 g/dL (32-36); Mean Corpuscular Hgb 25.8 pg (27.0-32.0); Mean Corpuscular Volume 77.9 fL (81-99); Mean Platelet Vol. 8.9 fl (6.2-12.0); Monocyte# 1.71 X10^3/uL; Monocyte% 7.9 % (0-10); NRBC Flagged by Analyzer 0.3 % (0-5); Neutrophil # 15.76 X10^3/uL (2.7-7.7); POSITIVE DIFFERENTIAL YES; Platelet Count 404 K/mm3 (150-450); RBC Distribution Width CV 15.9 % (11.6-14.6); RBC Distribution Width SD 44.7 fl (35.1-43.9); Red Blood Count 3.99 M/mm3 (4.2-5.4); White Blood Count 21.6 K/mm3 (4.4-11.0)
[2019-07-23 06:35] LABS: Differential Indicated SCAN CRITERIA MET
[2019-07-23 06:47] LABS: Anion Gap 6 (5-15); BUN 19 mg/dL (7-18); BUN/Creat Ratio 14.7 RATIO (10-20); Calcium,Total 8.7 mg/dL (8.5-10.1); Chloride 113 mmol/L (98-107); Creatinine, Serum 1.29 mg/dL (0.55-1.02); EST Glomerular Filtration Rate 46 mL/min (>60); Est Glom Filt Rate - Afr Amer 56 mL/min (>60); Estimated Creatinine Clearance 38.93 ml/min; Glucose 116 mg/dL (74-106); Potassium 4.3 mmol/L (3.5-5.1); Sodium Level 138 mmol/L (136-145)
[2019-07-23] MEDS: guaiFENesin/Codeine 5 ML UDC PO (06:50)
[2019-07-23] MEDS: tiZANidine HCl 2 MG Tablet PO (06:50)
[2019-07-23] MEDS: Acetaminophen 325 MG Tablet 650 MG PO (06:50)
[2019-07-23] MEDS: Folic Acid 1 MG Tablet PO (09:00)
[2019-07-23] MEDS: Gabapentin 300 MG Capsule PO (09:00)
[2019-07-23] MEDS: Metoprolol Tartrate 25 MG Tablet PO (09:01)
[2019-07-23] MEDS: DULoxetine Hcl 60 MG Capsule PO (09:01)
[2019-07-23] MEDS: Fluticasone 0.05% 1 SPRAY NASAL.SRY NASAL (09:01)
[2019-07-23] MEDS: Enoxaparin 30 MG/0.3 ML Syringe SC (09:02)
[2019-07-23] MEDS: Magnesium Oxide 400 MG Tablet PO (09:02)
[2019-07-23] MEDS: 0.9% Saline Lock 10 ML Syringe IV (09:05)
[2019-07-23] MEDS: predniSONE 20 MG Tablet 40 MG PO (09:05)
[2019-07-23] MEDS: levoFLOXacin IV 250 MG/50 ML BAG 100 MG IV (09:06)
[2019-07-23] MEDS: Ensure Clear 120 ML Liquid PO (09:15)
--- NOTE | 2019-07-23 09:44 | PCM.PN.PUL ---
Patient Problems: Active and Suspected Problems (Last Reviewed 07/21/19 @ 06:54 by Igor Raza MD) Acute bronchitis (Acute) Subjective: Patient did well overnight. No acute issues were reported. Patient reports subjective improvement in overall condition. Patient's oxygenation has continued to improve. No chest pain has been reported. Patient states she has been able to ambulate around the room with little difficulty. - Physical Exam Vitals/I&O's: Vital Signs Temp Pulse Resp BP Pulse Ox 36.5 C L 82 18 158/104 H 100 07/23/19 08:30 07/23/19 09:01 07/23/19 08:30 07/23/19 09:01 07/23/19 08:30 Oxygen Flow Rate (L/min) 2 Oxygen Delivery Method Room Air Weight: 48.9 kg Body Mass Index (BMI) 19.7 Finger Stick Blood Glucose 156 Intake and Output for Last 24 Hours 07/21/19 07/22/19 07/23/19 23:59 23:59 23:59 Intake Total 3130 / 3130 3235 / 3235 Output Total 100 / 100 Balance 3030 / 3030 3235 / 3235 General: Alert, Oriented x3, Cooperative, No apparent distress, - - Cachectic. No conversational dyspnea. HEENT: Atraumatic, PERRLA, EOMI, Normocephalic, - - No scleral icterus or injection noted Oral: Moist Mucosa, No Gingival or Mucosal Lesions/ Ulcerations Neck: Supple, No JVD, No Nodes, Trachea Midline Lungs: No wheeze, Diminished, Rales, - - Symmetric expansion. No dullness to percussion. Cardiovascular: Regular rate, Regular Rhythm, Normal S1, Normal S2, No murmurs, No rub noted, No Gallop Abdomen: Bowel Sounds Present, Soft, Non Tender, Non-Distended Extremities: No cyanosis, No edema, Capillary Refill Less than 3 Seconds, Clubbing Skin: No rashes, No breakdown Musculoskeletal: No Tenderness to Palpation of Joints or Extremities Lymphatic: No Cervical, Supraclavicular, or Inguinal Adenopathy Neurological: Cranial nerves II-XII grossly intact, Neuro grossly intact, Motor Exam 5/5 strength throughout Psych/Mental Status: Alert and oriented to time, place, person, mood and affect Microbiology Past 72 Hours 07/21/19 05:20 Blood Culture (Wb) - Anticubital Left Bacteria Detection (PCR) - Final Staphylococcus aureus 07/21/19 05:20 Blood Culture (Wb) - Anticubital Left Blood Culture - Preliminary Staphylococcus aureus 07/22/19 05:00 Sputum, Expectorated/Coughed Gram Stain - Final 07/21/19 13:20 Mucosa - Nasopharyngeal Respiratory Panel (PCR) - Preliminary Laboratory Results 07/23/19 06:04: WBC 21.6 H, RBC 3.99 L, Hgb 10.3 L, Hct 31.1 L, MCV 77.9 L, MCH 25.8 L, MCHC 33.1, RDW Std Deviation 44.7 H, RDW Coeff of Mary 15.9 H, Plt Count 404, MPV 8.9, Immature Gran % (Auto) 1.000 H, Neut % (Auto) 73.0 H, Lymph % (Auto) 17.4 L, [place] % (Auto) 7.9, Eos % (Auto) 0.1, Baso % (Auto) 0.6, Absolute Neuts (auto) 15.8 H, Absolute Lymphs (auto) 3.76, Nucleated RBC % 0.3, Diff Path Review December07/23/19 06:04: Sodium 138, Potassium 4.3, Chloride 113 H, Carbon Dioxide 19.0 L, Anion Gap 6, BUN 19 H, Creatinine 1.29 H, Estim Creat Clear Calc 38.93, Est GFR (MDRD) Af Amer 56 L, Est GFR (MDRD) Non-Af 46 L, BUN/Creatinine Ratio 14.7, Glucose 116 H, Calcium 8.7 Current Medications Acetaminophen (Tylenol) 650 mg PO Q6H PRN PRN PRN Reason: Pain Score 1-3/Temp > 100.7 F Last Admin: 07/23/19 06:50 Dose: 650 mg Documented by: Albuterol Sulfate (Ventolin Aerosols) 2.5 mg INHALATION Q2H PRN PRN PRN Reason: Shortness of Breath/Wheezing Last Admin: 07/22/19 17:09 Dose: 2.5 mg Documented by: Benzonatate (Tessalon Perle) 100 mg PO TID PRN PRN PRN Reason: COUGH Last Admin: 07/22/19 12:31 Dose: 100 mg Documented by: Clonidine (Catapres) 0.2 mg PO QHS [facility] Last Admin: 07/22/19 21:10 Dose: 0.2 mg Documented by: Dextrose (D50w Syringe) 0 gm IV X1 PRN; Protocol PRN Reason: Hypoglycemia Duloxetine HCl (Cymbalta) 60 mg PO DAILY [facility] Last Admin: 07/23/19 09:01 Dose: 60 mg Documented by: Enoxaparin Sodium (Lovenox) 30 mg SC DAILY [facility] Last Admin: 07/23/19 09:02 Dose: 30 mg Documented by: Fluticasone Propionate (Flonase Nasal [place]) 0 spray NASAL DAILY [facility] Last Admin: 07/23/19 09:01 Dose: 1 spray Documented by: Folic Acid (Folic Acid) 1 mg PO DAILY@0800 [facility] Last Admin: 07/23/19 09:00 Dose: 1 mg Documented by: [facility]) [facility] Last Admin: 07/23/19 09:00 Dose: 300 mg Documented by: Gabapentin (Neurontin) 600 mg PO QHS [facility] Last Admin: 07/22/19 21:10 Dose: 600 mg Documented by: Glucagon () 1 mg IM .X1 PRN PRN Reason: Hypoglycemia Guaifenesin/Codeine Phosphate (Robitussin Ac) 5 ml PO Q6H PRN PRN PRN Reason: severe cough Last Admin: 07/23/19 06:50 Dose: 5 ml Documented by: Hydroxyzine Pamoate (Vistaril Pamoate Capsule) 25 mg PO Q12H PRN PRN PRN Reason: ITCHING Last Admin: 07/21/19 18:28 Dose: 25 mg Documented by: Levofloxacin (Levaquin Iv) 250 mg in 50 mls @ 100 mls/hr IV Q24 [facility] Last Admin: 07/23/19 09:06 Dose: 100 mls/hr Documented by: Sodium Chloride () 250 mls @ 15 mls/hr IV .[id number] PRN PRN Reason: Saline Flush Loperamide HCl (Imodium) 2 mg PO TID PRN PRN PRN Reason: Diarrhea Last Admin: 07/22/19 10:25 Dose: 2 mg Documented by: Magnesium Oxide (Mag-Ox 400) 400 mg PO BID [facility] Last Admin: 07/23/19 09:02 Dose: 400 mg Documented by: Metoprolol Tartrate (Lopressor (Beta Carine)) 25 mg PO DAILY [facility] Last Admin: 07/23/19 09:01 Dose: 25 mg Documented by: Mirtazapine (Remeron) 30 mg PO QHS [facility] Last Admin: 07/22/19 21:10 Dose: 30 mg Documented by: Nutritional Formula (Lactose Free) (Ensure Clear) 120 ml PO 4X/DAY [facility] Last Admin: 07/23/19 09:15 Dose: 120 ml Documented by: Ondansetron HCl (Zofran) 4 mg IV Q8H PRN PRN PRN Reason: NAUSEA/VOMITING Oxycodone HCl (Oxyir) 10 mg PO Q4H PRN PRN PRN Reason: Pain Score 4-5/10 Last Admin: 07/23/19 05:49 Dose: 10 mg Documented by: Prednisone () 40 mg PO DAILY@0800 [facility] Last Admin: 07/23/19 09:05 Dose: 40 mg Documented by: Sodium Chloride () 10 - 40 ml IV UD PRN PRN Reason: SALINE FLUSH Last Admin: 07/23/19 09:05 Dose: 10 ml Documented by: Tizanidine HCl (Zanaflex) 2 - 4 mg PO BID PRN PRN PRN Reason: muscle spasms Last Admin: 07/23/19 06:50 Dose: 2 mg Documented by: Medical Necessity - Tobacco Use Smoking Status: Former smoker Assessment/Plan All Active Problems (Last Reviewed 07/21/19 @ 06:54 by Igor Raza MD) Acute bronchitis (Acute) Rib fractures (Resolved) Acute right-sided thoracic back pain (Resolved) Acute right-sided thoracic back pain (Resolved) Radicular pain of thoracic region (Resolved) Radicular pain of thoracic region (Resolved) Acute renal failure (Acute) Hyponatremia (Acute) Acute kidney failure (Acute) RECOMMENDATIONS: 1. Okay to transition to p.o. Levaquin from my perspective and complete a 7-day course 2. Agree with transition to prednisone and wean over the next 12 to 14 days 3. We will need to get records from [facility] 4. Walking oximetry prior to discharge 5. Follow-up with nurse practitioner 2 weeks after discharge 6. Please have patient sign a release for [facility] to have previous records sent to outpatient pulmonary office IMPRESSIONS: 1. Acute on chronic exacerbation secondary to COPD/sarcoidosis Patient with relatively advanced chronic changes on chest x-ray. Patient came in with leukocytosis and notable shift. Patient has responded very well to current therapy. Patient does have a blood culture that is come back as MRSA, but leukocytosis is significantly improved, patient is afebrile and pain is improving. Unclear if this represents true infection. Reasonable to continue with Levaquin therapy from my perspective and complete course by p.o. route. Patient can be transition to prednisone and wean over the next 12 to 14 days. Would be happy to evaluate patient as an outpatient and try to assume care, but patient has not followed up as an outpatient previously. If discharged , will likely follow-up in our office in 2 weeks with nurse practitioner to ensure improvement. 2. Acute kidney injury/hypovolemic hyponatremia Baseline creatinine appears to be approximately 1.2. Patient does admit to some decreased p.o. intake, so prerenal etiology is suspected. Blood pressures have been stable. Continue aggressive hydration. Will recheck labs tomorrow morning. Patient sodium is responding to hydration. 3. Hypertension/chronic pain syndrome/anxiety/depression/severe protein malnutrition/history of colectomy/history of noncompliance Complicates care, management, recovery and prognosis. Okay to continue with baseline medications. Stressed to the patient the importance of close pulmonary follow-up to avoid future complications. Code Visit Inpatient E&M: 36370 Subs Hosp L2
--- NOTE | 2019-07-23 10:02 | DCINST_ITS ---
- Discharge Diagnoses Current Active Problems: Current Active and Chronic Problems (Last Reviewed 07/21/19 @ 06:54 by Igor Raza MD) 1. Acute on Chronic COPD/Asthma exacerbation w/ Acute Bronchitis w/ Chronic Hypoxic Respiratory Failure 2. Acute hyponatremia, hypovolemic 3. Acute kidney injury, Secondary to acute presentation #1 and #2 4. Hypertension 5. Chronic pain syndrome 6. Anxiety and depression 7. Severe protein calorie malnutrition 8. Hx Mesenteric Ischemia 9. Sarcoidosis You will use the following diet at home:: Regular Your food should be the consistency of: Regular Your liquids should be the consistency of: Regular/Thin Discharge Activity: - - Avoid aggressive activity until clinically improved and completed steroid taper as well as follow-up with pulmonary medicine. Weight Bearing Status: Weight bearing as tolerated Call your doctor if you observe: Fever of 101 or Higher, Inability to urinate, Inability to have a bowel movement, Shortness of breath, Dizziness, Fainting spells, Chest pain, Uncontrolled pain Instructions: What Is COPD?, Chronic Lung Disease: Preventing Lung Infections, Treatments for COPD, Good Nutrition for Chronic Lung Disease, Traveling with Oxygen, Using Oxygen Safely, Using Oxygen at Home Additional Instructions: We strongly encourage you to continue to follow-up with Dr. Chun especially given your desire for future reversal of your ostomy. Allergies/Adverse Reactions: Allergies cephalexin monohydrate [From Keflex] Allergy (Mild, Verified 04/22/19 15:30) Itching doxycycline Adverse Reaction (Verified 04/22/19 15:30) Vomiting moxifloxacin HCl [From Avelox] Adverse Reaction (Verified 04/22/19 15:30) Vomiting Medications to take at Discharge Magnesium 400 mg PO BID 12/28/18 Magnesium Hydroxide [Milk Of Magnesia] 30 ml PO DAILY PRN PRN 12/28/18 Metoprolol Tartrate 25 mg PO DAILY 12/28/18 Tizanidine HCl [Zanaflex] 2 - 4 mg PO BID PRN PRN 12/28/18 Albuterol Inhaler [Ventolin Hfa] 1 - 2 puff INHALATION Q4H PRN PRN 02/25/19 Duloxetine HCl 60 mg PO DAILY 02/25/19 Fluticasone Propionate [Flonase Allergy Relief] 2 spray IH DAILY 02/25/19 Folic Acid 1 mg PO DAILY@0800 02/25/19 Gabapentin 300 mg PO BID 02/25/19 Gabapentin 600 mg PO QHS 02/25/19 Ipratropium [Atrovent Inhaler] 1 puff INHALATION Q6H PRN PRN 02/25/19 Loperamide HCl [Imodium A-D] 2 mg PO TID PRN 02/25/19 Mirtazapine [Remeron] 30 mg PO QHS 02/25/19 Potassium Citrate [Potassium Citrate ER] 5 meq PO DAILY 02/25/19 Ensure Enlive 120 ml PO 4X/DAY liquid 04/18/19 Clonidine HCl 0.2 mg PO QHS 07/21/19 Oxycodone [Oxyir] 10 mg PO Q6H PRN PRN 07/21/19 Psyllium Husk/Aspartame [Metamucil Fiber Singles Packet] 3.4 gm PO 4X/DAY 07/21/19 Albuterol Aerosols [Ventolin Aerosols] 2.5 mg INHALATION Q2H PRN PRN #1 box 07/23/19 Benzonatate [Tessalon Perle] 100 mg PO TID PRN PRN #30 cap 07/23/19 Guaifenesin [Mucinex] 600 mg PO BID PRN #20 tab 07/23/19 Guaifenesin/Codeine [Robitussin AC] 5 ml PO Q6H PRN PRN 5 Days #4 oz 07/23/19 Ipratropium/Albuterol Sulfate [Duoneb] 3 ml INHALATION Q6HWA.RT 7 Days #1 box 07/23/19 Levofloxacin [Levaquin] 500 mg PO DAILY 3 Days #3 tab 07/23/19 Oxygen, Home [Home Oxygen] 2 - 4 lpm NASAL CONT #1 unit 07/23/19 Prednisone 10 mg PO UD 12 Days #30 tab 07/23/19 The following prescriptions were given: Ipratropium/Albuterol Sulfate [Duoneb] 3 ml INHALATION Q6HWA.RT 7 Days #1 box Transmission Status: Sent to [facility] #30 Oxygen, Home [Home Oxygen] 2 - 4 lpm NASAL CONT #1 unit Prescription Printed Levofloxacin [Levaquin] 500 mg PO DAILY 3 Days #3 tab Transmission Status: Sent to [facility] #30 Guaifenesin [Mucinex] 600 mg PO BID PRN #20 tab PRN Reason: Congestion Transmission Status: Sent to [facility] #30 Prednisone 10 mg PO UD 12 Days #30 tab Transmission Status: Sent to [facility] #30 Guaifenesin/Codeine [Robitussin AC] 5 ml PO Q6H PRN PRN 5 Days #4 oz PRN Reason: severe cough Transmission Status: Sent to [facility]30 Benzonatate [Tessalon Perle] 100 mg PO TID PRN PRN #30 cap PRN Reason: Cough Transmission Status: Sent to [facility]30 Albuterol Aerosols [Ventolin Aerosols] 2.5 mg INHALATION Q2H PRN PRN #1 box PRN Reason: SOB &/OR WHEEZING Transmission Status: Sent to [facility] Primary Care Physician: John Sears MD [Primary Care Provider] - Please follow up with your Primary Care Physician in: Follow-up within 3 to 5 days to review current admission. Test Results: Test results from this visit will be discussed in further detail at your follow- up appointment, if applicable. Please Follow Up With: Meseret Taylor, JUDE-C When: Please follow-up in [address] Chun pulmonary DIRECTOR [employer]OR[employer]NAGEMENT. Proposed Discharge Date: 07/23/19
--- NOTE | 2019-07-23 10:05 | DS.PCM_ITS ---
Discharge Date and Diagnosis - Problem List Patient Problems: Active and Suspected Problems (Last Reviewed 07/21/19 @ 06:54 by Igor Raza MD) Acute bronchitis (Acute) Date of Admission: 07/21/19 Date of Discharge: 07/23/19 - Primary Discharge Diagnosis Active and Suspected Problems (Last Reviewed 07/21/19 @ 06:54 by Igor Raza MD) 1. Acute on Chronic COPD/Asthma exacerbation w/ Acute Bronchitis w/ Chronic Hypoxic Respiratory Failure, Sputum preliminary staph species as well as gram- negative rods lactose fermenting 2. Acute hyponatremia, hypovolemic 3. Acute kidney injury, Secondary to acute presentation #1 and #2 4. Hypertension 5. Chronic pain syndrome 6. Anxiety and depression 7. Severe protein calorie malnutrition 8. Hx Mesenteric Ischemia 9. Sarcoidosis - Secondary Discharge Diagnosis Chronic Problems (Last Reviewed 07/21/19 @ 06:54 by Igor Raza MD) Chronic respiratory failure (Chronic) Bronchiectasis (Chronic) Asthma (Chronic) COPD (chronic obstructive pulmonary disease) (Chronic) Chronic pain (Chronic) Leukocytosis (Chronic) HTN (hypertension) (Chronic) Sarcoidosis (Chronic) Hospital Course and Treatment Consultations 07/21/19 06:49 Consult: Onc/Wound/supervisor ornamental ironworking Routine Comment: Reason for Consult:: Patient with ileostomy. Dr. Chun Pulmonary Operations: None Procedures: EKG Summary of Care Provided: The patient is a 53 y/o F w/ PMHx: Former Tobacco use, Sarcoidosis, Chronic COPD/Asthma, Bronchiectasis w/ Chronic Hypoxic Respiratory Failure (2-4L NC), Chronic Pain Syndrome, HTN, HLD, Anxiety and Depression who presented to the [facility] ED on 07/21/19 with history of progressively worsening dyspnea with productive cough of yellow-green sputum with pleuritic right-sided chest discomfort, worse with deep inspiration and coughing prompting presentation to the ED with recent initiation of Z-Jose Miguel. CXR w/ chronic changes, CBC on admission w/ WBC 29.5 with notable left shift which clinically improved with treatment. Admitted to [place], maintained on home oxygen supplementation, continued ATC duonebs, PRN albuterol, IV methylprednisolone->07/22/19 prednisone, HOB, IS parameters, IV Levaquin w/ renal dosing given initial presentation, respiratory culture with preliminary staph species as well as gram-negative rods lactose fermenting, final pending but per discussion with pulmonary medicine cleared for discharge to home given clinical improvement with plan follow-up outpatient closely in our office, respiratory viral panel preliminary negative. Blood culture 1/2 gram positive cocci clusters; however, afebrile, stable VS, clinically improving, suspected contaminant, repeat cultures requested. Given patient was interested in establishing with Dr. Alcides Chun and given that patient is been poor follow-up at the [facility] requested Dr. Chun evaluation with agreement to continue to aerosols, steroid taper, Levaquin therapy to complete treatment. Encouraged compliance with continuous oxygen therapy with 2 L at rest and 4 L with activity per prior. Labs on 07/23/2019 with CBC with WBC 21.6, hemoglobin 10.3, platelet 404 but on steroid therapy and again remained afebrile, clinically improving, BMP with BUN/creatinine 19/1.29, improving from prior and similar to baseline of 1.1-1.3 creatinine. Given clinical improvement and clearance for discharge per pulmonary medicine, discharged to home with ongoing outpatient home therapies, steroid taper, Levaquin regimen, aerosols, follow-up with pulmonary medicine and primary care physician. DAY OF DISCHARGE PROGRESS NOTE: Subjective: Patient without acute event overnight per self and nursing report. Patient denies fever, chills, nausea, emesis, abdominal pain, chest pain or recurrent or worsened dyspnea. Strongly encouraged patient compliance with follow-up with pulmonary medicine, completion of antibiotic therapy as well as steroid taper and continued aerosols. Patient agreeable to discharge to home with interventions as noted. Patient will be discharged with follow-up with primary care physician within 3-5 days in addition to follow-up with pulmonary [employer]FINERY in 2 weeks. Objective: T 97.7, heart rate 82, BP 158/104, respiratory rate 18, 99% on 2 L nasal cannula. Physical Examination: General: awake, alert, oriented x 3 and cooperative, seated upright in bed, no acute distress. Skin: normal color, turgor, no icterus, cyanosis. HEENT: AT/NC, EOMI, PERRLA, MMM. Lungs: Improved breath sounds throughout and effort, diminished, greater bases, no rales, rhonchi or wheezing. Heart: Regular rate and rhythm; no gallop, rub audible. Abdomen: soft, cachectic habitus, NTTP, ND, normal BS. Extremities: no cyanosis, clubbing, or edema. Neurological: patient awake, alert, oriented x 3; cognitive function intact; pupils equally reactive to light and accomodation; cranial nerves II-XII grossly normal, moving all 4 extremities, no focal deficits, strength improving, mildly to moderately global decreased. Psychiatric: affect appears normal, no acute evidence of depressive or anxiety feelings. Assessment and Plan: Please see hospital summary above. Patient Problems: Active and Suspected Problems (Last Reviewed 07/21/19 @ 06:54 by Igor Raza MD) Acute bronchitis (Acute) - Physical Exam Vitals/I&O's: Vital Signs Temp Pulse Resp BP Pulse Ox 97.7 F L 82 18 158/104 H 100 07/23/19 08:30 07/23/19 09:01 07/23/19 08:30 07/23/19 09:01 07/23/19 08:30 Oxygen Flow Rate (L/min) 2 Oxygen Delivery Method Room Air Weight: 107 lb 12.897 oz Body Mass Index (BMI) 19.7 Finger Stick Blood Glucose 156 Intake and Output for Last 24 Hours 07/21/19 07/22/19 07/23/19 23:59 23:59 23:59 Intake Total 3130 / 3130 3235 / 3235 Output Total 100 / 100 Balance 3030 / 3030 3235 / 3235 Microbiology Past 72 Hours 07/22/19 05:00 Sputum, Expectorated/Coughed Gram Stain - Final 07/22/19 05:00 Sputum, Expectorated/Coughed Respiratory Culture - P reliminary GNR lactose pattern marking supervisor Staphylococcus species 07/21/19 05:20 Blood Culture (Wb) - Anticubital Left Bacteria Detection (PCR) - Final Staphylococcus aureus 07/21/19 05:20 Blood Culture (Wb) - Anticubital Left Blood Culture - Preliminary Staphylococcus aureus 07/21/19 13:20 Mucosa - Nasopharyngeal Respiratory Panel (PCR) - Preliminary Laboratory Results 07/23/19 06:04: WBC 21.6 H, RBC 3.99 L, Hgb 10.3 L, Hct 31.1 L, MCV 77.9 L, MCH 25.8 L, MCHC 33.1, RDW Std Deviation 44.7 H, RDW Coeff of Mary 15.9 H, Plt Count 404, MPV 8.9, Immature Gran % (Auto) 1.000 H, Neut % (Auto) 73.0 H, Lymph % (Auto) 17.4 L, [place] % (Auto) 7.9, Eos % (Auto) 0.1, Baso % (Auto) 0.6, Absolute Neuts (auto) 15.8 H, Absolute Lymphs (auto) 3.76, Nucleated RBC % 0.3, Diff Path Review December07/23/19 06:04: Sodium 138, Potassium 4.3, Chloride 113 H, Carbon Dioxide 19.0 L , Anion Gap 6, BUN 19 H, Creatinine 1.29 H, Estim Creat Clear Calc 38.93, Est GFR (MDRD) Af Amer 56 L, Est GFR (MDRD) Non-Af 46 L, BUN/Creatinine Ratio 14.7, Glucose 116 H, Calcium 8.7 Current Medications Acetaminophen (Tylenol) 650 mg PO Q6H PRN PRN PRN Reason: Pain Score 1-3/Temp > 100.7 F Last Admin: 07/23/19 06:50 Dose: 650 mg Documented by: Albuterol Sulfate (Ventolin Aerosols) 2.5 mg INHALATION Q2H PRN PRN PRN Reason: Shortness of Breath/Wheezing Last Admin: 07/22/19 17:09 Dose: 2.5 mg Documented by: Benzonatate (Tessalon Perle) 100 mg PO TID PRN PRN PRN Reason: COUGH Last Admin: 07/22/19 12:31 Dose: 100 mg Documented by: Clonidine (Catapres) 0.2 mg PO QHS [facility] Last Admin: 07/22/19 21:10 Dose: 0.2 mg Documented by: Dextrose (D50w Syringe) 0 gm IV X1 PRN; Protocol PRN Reason: Hypoglycemia Duloxetine HCl (Cymbalta) 60 mg PO DAILY [facility] Last Admin: 07/23/19 09:01 Dose: 60 mg Documented by: Enoxaparin Sodium (Lovenox) 30 mg SC DAILY [facility] Last Admin: 07/23/19 09:02 Dose: 30 mg Documented by: Fluticasone Propionate (Flonase Nasal Leckrone) 0 spray NASAL DAILY [facility] Last Admin: 07/23/19 09:01 Dose: 1 spray Documented by: Folic Acid (Folic Acid) 1 mg PO DAILY@0800 [facility] Last Admin: 07/23/19 09:00 Dose: 1 mg Documented by: Gabapentin (Neurontin) 300 mg PO BIDCM [facility] Last Admin: 07/23/19 09:00 Dose: 300 mg Documented by: Gabapentin (Neurontin) 600 mg PO QHS [facility] Last Admin: 07/22/19 21:10 Dose: 600 mg Documented by: Glucagon () 1 mg IM .X1 PRN PRN Reason: Hypoglycemia Guaifenesin/Codeine Phosphate (Robitussin Ac) 5 ml PO Q6H PRN PRN PRN Reason: severe cough Last Admin: 07/23/19 06:50 Dose: 5 ml Documented by: Hydroxyzine Pamoate (Vistaril Pamoate Capsule) 25 mg PO Q12H PRN PRN PRN Reason: ITCHING Last Admin: 07/21/19 18:28 Dose: 25 mg Documented by: Levofloxacin (Levaquin Iv) 250 mg in 50 mls @ 100 mls/hr IV Q24 [facility] Last Admin: 07/23/19 09:06 Dose: 100 mls/hr Documented by: Sodium Chloride () 250 mls @ 15 mls/hr IV .[id number] PRN PRN Reason: Saline Flush Loperamide HCl (Imodium) 2 mg PO TID PRN PRN PRN Reason: Diarrhea Last Admin: 07/22/19 10:25 Dose: 2 mg Documented by: Magnesium Oxide (Mag-Ox 400) 400 mg PO BID [facility] Last Admin: 07/23/19 09:02 Dose: 400 mg Documented by: Metoprolol Tartrate (Lopressor (Beta Carine)) 25 mg PO DAILY [facility] Last Admin: 07/23/19 09:01 Dose: 25 mg Documented by: Mirtazapine (Remeron) 30 mg PO QHS [facility] Last Admin: 07/22/19 21:10 Dose: 30 mg Documented by: Nutritional Formula (Lactose Free) (Ensure Clear) 120 ml PO 4X/DAY [facility] Last Admin: 07/23/19 09:15 Dose: 120 ml Documented by: Ondansetron HCl (Zofran) 4 mg IV Q8H PRN PRN PRN Reason: NAUSEA/VOMITING Oxycodone HCl (Oxyir) 10 mg PO Q4H PRN PRN PRN Reason: Pain Score 4-5/10 Last Admin: 07/23/19 05:49 Dose: 10 mg Documented by: Prednisone () 40 mg PO DAILY@0800 [facility] Last Admin: 07/23/19 09:05 Dose: 40 mg Documented by: Sodium Chloride () 10 - 40 ml IV UD PRN PRN Reason: SALINE FLUSH Last Admin: 07/23/19 09:05 Dose: 10 ml Documented by: Tizanidine HCl (Zanaflex) 2 - 4 mg PO BID PRN PRN PRN Reason: muscle spasms Last Admin: 07/23/19 06:50 Dose: 2 mg Documented by: Discharge Activity: - - Avoid aggressive activity until clinically improved and completed steroid taper as well as follow-up with pulmonary medicine. Weight Bearing Status: Weight bearing as tolerated Call your doctor if you observe: Fever of 101 or Higher, Inability to urinate, Inability to have a bowel movement, Shortness of breath, Dizziness, Fainting spells, Chest pain, Uncontrolled pain Home Medications: Medications to take at Discharge Magnesium 400 mg PO BID 12/28/18 Magnesium Hydroxide [Milk Of Magnesia] 30 ml PO DAILY PRN PRN 12/28/18 Metoprolol Tartrate 25 mg PO DAILY 12/28/18 Tizanidine HCl [Zanaflex] 2 - 4 mg PO BID PRN PRN 12/28/18 Albuterol Inhaler [Ventolin Hfa] 1 - 2 puff INHALATION Q4H PRN PRN 02/25/19 Duloxetine HCl 60 mg PO DAILY 02/25/19 Fluticasone Propionate [Flonase Allergy Relief] 2 spray IH DAILY 02/25/19 Folic Acid 1 mg PO DAILY@0800 02/25/19 Gabapentin 300 mg PO BID 02/25/19 Gabapentin 600 mg PO QHS 02/25/19 Ipratropium [Atrovent Inhaler] 1 puff INHALATION Q6H PRN PRN 02/25/19 Loperamide HCl [Imodium A-D] 2 mg PO TID PRN 02/25/19 Mirtazapine [Remeron] 30 mg PO QHS 02/25/19 Potassium Citrate [Potassium Citrate ER] 5 meq PO DAILY 02/25/19 Ensure Enlive 120 ml PO 4X/DAY liquid 04/18/19 Clonidine HCl 0.2 mg PO QHS 07/21/19 Oxycodone [Oxyir] 10 mg PO Q6H PRN PRN 07/21/19 Psyllium Husk/Aspartame [Metamucil Fiber Singles Packet] 3.4 gm PO 4X/DAY 07/21/19 Albuterol Aerosols [Ventolin Aerosols] 2.5 mg INHALATION Q2H PRN PRN #1 box 07/23/19 Benzonatate [Tessalon Perle] 100 mg PO TID PRN PRN #30 cap 07/23/19 Guaifenesin [Mucinex] 600 mg PO BID PRN #20 tab 07/23/19 Guaifenesin/Codeine [Robitussin AC] 5 ml PO Q6H PRN PRN 5 Days #4 oz 07/23/19 Ipratropium/Albuterol Sulfate [Duoneb] 3 ml INHALATION Q6HWA.RT 7 Days #1 box Levofloxacin [Levaquin] 500 mg PO DAILY 3 Days #3 tab 07/23/19 Oxygen, Home [Home Oxygen] 2 - 4 lpm NASAL CONT #1 unit 07/23/19 Prednisone 10 mg PO UD 12 Days #30 tab 07/23/19 Following Prescrptions Were Given to Patient: Ipratropium/Albuterol Sulfate [Duoneb] 3 ml INHALATION Q6HWA.RT 7 Days #1 box Transmission Status: Sent to [facility] #30 Oxygen, Home [Home Oxygen] 2 - 4 lpm NASAL CONT #1 unit Prescription Printed Levofloxacin [Levaquin] 500 mg PO DAILY 3 Days #3 tab Transmission Status: Sent to [facility]30 Guaifenesin [Mucinex] 600 mg PO BID PRN #20 tab PRN Reason: Congestion Transmission Status: Sent to [facility]30 Prednisone 10 mg PO UD 12 Days #30 tab Transmission Status: Sent to [facility]30 Guaifenesin/Codeine [Robitussin AC] 5 ml PO Q6H PRN PRN 5 Days #4 oz PRN Reason: severe cough Transmission Status: Sent to [facility] #30 Benzonatate [Tessalon Perle] 100 mg PO TID PRN PRN #30 cap PRN Reason: Cough Transmission Status: Sent to [facility]30 Albuterol Aerosols [Ventolin Aerosols] 2.5 mg INHALATION Q2H PRN PRN #1 box PRN Reason: SOB &/OR WHEEZING Transmission Status: Sent to [facility] #30 Primary Care Physician: John Sears MD [Primary Care Provider] - Please follow up with your Primary Care Physician in: Follow-up within 3 to 5 days to review current admission. Please Follow Up With: Meseret Taylor, [employer]-C When: Please follow-up in [address] Chun pulmonary [employer]. Patient Instructions: What Is COPD?, Chronic Lung Disease: Preventing Lung Infections, Traveling with Oxygen, Using Oxygen Safely, Using Oxygen at Home, Treatments for COPD, Good Nutrition for Chronic Lung Disease Disposition: Home with Home Health Minutes spent on discharge:: 35 Patient Condition:: Fair Medical Necessity - Tobacco Use Smoking Status: Former smoker Meaningful Use Info Meaningful Use Diagnoses (Choose all that apply): None applicable Code Visit Inpatient E&M: 31479 Disch Hosp
[2019-07-23 12:35] LABS: Pathologist Review Reviewed
--- NOTE | 2019-07-23 13:20 | CASEMGMT ---
LOREN MCCORMACK updated by floor nurse that patient has HHC at home twice a week with [facility]. LOREN MCCORMACK called [facility] and confirmed services with them. Patient is active with group home. Resumption order and discharge packet sent to [facility]. LOREN MCCORMACK updated patient.
--- NOTE | 2019-07-23 13:27 | CASEMGMT ---
RN CM Note: Intro role of CM to patient- states she does have portable tanks at home, but does not use oxygen often, mostly at night. Does not remember DME company, and will go home without portability. Nursing checked pulse ox and pt is stable. Also notified pt home health was resumed on dc. Sera ORDOÑEZN RN ACM
--- NOTE | 2019-07-24 15:59 | CASEMGMT ---
LOREN MCCORMACK Discharge Follow-Up Phone Call. Suyapa: 14 Strata: 4 Discharge Date: 07/23/19 Adm Dx: JERO Call to pt to inquire about how she has been doing since being discharged from the hospital. Pt states, I'm doing okay. She states she was able to chart picker all of her new prescriptions yesterday without any difficulty and denies having any questions about the medications, discharge instructions, follow-up appts or any other questions/concerns. She states, I'm established with home health care and they came to see me today. She denies any needs at this time. LOREN MCCORMACK thanked pt for choosing [facility]. Jackelyn Knight
== END 2019-07-23 14:36 | disposition home or self-care (01) | DRG 190 ==
LOC: ED 04:17 → MS3 05:48
PROVIDERS: Admitting Provider Hospitalist; Emergency Provider Emergency Medicine; Family Provider Family Medicine; PCP Family Medicine; Visit Provider Family Medicine
DX: J44.0 Chronic obstructive pulmonary disease with (acute) lower respiratory infection (principal); E43 Unspecified severe protein-calorie malnutrition; J45.901 Unspecified asthma with (acute) exacerbation; N17.9 Acute kidney failure, unspecified; E87.1 Hypo-osmolality and hyponatremia; J96.11 Chronic respiratory failure with hypoxia; Z68.1 Body mass index [BMI] 19.9 or less, adult; J44.1 Chronic obstructive pulmonary disease with (acute) exacerbation; J20.9 Acute bronchitis, unspecified; D86.9 Sarcoidosis, unspecified; E86.1 Hypovolemia; I10 Essential (primary) hypertension; Z99.81 Dependence on supplemental oxygen; G89.4 Chronic pain syndrome; F32.9 Major depressive disorder, single episode, unspecified; F41.9 Anxiety disorder, unspecified; Z87.891 Personal history of nicotine dependence; Z87.19 Personal history of other diseases of the digestive system; Z90.49 Acquired absence of other specified parts of digestive tract; Z93.2 Ileostomy status
CPT/HCPCS: 36415; 71046; 80048; 83605; 85025; 87040; 87070; 87077; 87149; 87186; 87205; 87633; 93005; 94640; 94667; 94668; 97162; 97165; 97802; 99285; J7030; J7040; A4216

== ENCOUNTER → 2019-08-12 08:51 | Outpatient (CLI) | payer MEDICARE, SELFPAY ==
[2019-07-21 06:30] VITALS: BMI 19.7
--- NOTE | 2019-08-12 08:54 | RAD_ITS ---
STUDY: X-RAY CHEST REASON FOR EXAM: Female, 53 years old. pneumonia TECHNIQUE: PA and lateral views of the chest. COMPARISON: 07/21/2019 FINDINGS: Bilateral chronic interstitial lung disease, with interstitial fibrosis in the right upper lung, and bilateral lung bases, stable since prior. No new focus of airspace process to indicate significant pneumonia. No significant pleural effusion. Normal size heart. Normal mediastinum and jordin. Normal visualized pulmonary arteries. Normal visualized aortic arch and descending thoracic aorta. There are diffuse degenerative changes of the visualized thoracic spine. Normal visualized ribs, clavicles, and shoulders. There is no demonstrated abnormality of the visualized soft tissue structures of the upper abdomen. RAD/Chest PA and Lateral IMPRESSION: Stable chronic interstitial lung disease with bilateral fibrosis No definite pneumonia, or CHF. Correlation with patient''s symptoms and history is recommended. Electronically Signed: Yousif Trevino MD at 12:02 EST Tel [phone], Service support ,
== END ==
PROVIDERS: Family Provider Family Medicine; PCP Family Medicine; Referring Provider Family Medicine; Visit Provider Family Medicine
DX: J18.9 Pneumonia, unspecified organism (principal)
CPT/HCPCS: 71046

== ENCOUNTER → 2019-08-26 12:46 | Outpatient (CLI) | payer MEDICARE, SELFPAY ==
[2019-07-21 06:30] VITALS: BMI 19.7
[2019-08-26 15:34] LABS: Absolute Lymphocyte Count 3.48 X10^3/uL (0.83-4.51); Absolute Neutrophil Count 6.1 X10^3/uL (2.0-7.7); Basophil# 0.16 X10^3/uL; Basophil% 1.4 % (0-1); Eosinophil# 0.34 X10^3/uL; Eosinophils% 2.9 % (0-5); Hematocrit 29.1 % (37-47); Hemoglobin 9.6 g/dL (12.0-15.0); Lymphocyte # 3.48 X10^3/ul (4.0); Lymphocyte % 29.7 % (19-41); Mean Corpuscular Volume 75.8 fL (81-99); Mean Platelet Vol. 9.1 fl (6.2-12.0); Monocyte# 1.56 X10^3/uL; Monocyte% 13.3 % (0-10); NRBC Flagged by Analyzer 0 % (0-5); Neutrophil # 6.07 X10^3/uL (2.7-7.7); Neutrophil % 51.7 % (47-70); POSITIVE DIFFERENTIAL YES; Platelet Count 488 K/mm3 (150-450); RBC Distribution Width CV 18.5 % (11.6-14.6); Red Blood Count 3.84 M/mm3 (4.2-5.4); White Blood Count 11.7 K/mm3 (4.4-11.0)
[2019-08-26 15:46] LABS: ALB/GLOB Ratio 0.6 RATIO (0.9-2.4); AST(SGOT) 28 U/L (15-37); Alanine Aminotransfer ALT/SGPT 22 U/L (13-56); Albumin, Serum 2.9 g/dL (3.2-5.0); Alkaline Phosphatase 177 U/L (45-117); Anion Gap 5 (5-15); BUN 18 mg/dL (7-18); BUN/Creat Ratio 12.2 RATIO (10-20); Chloride 111 mmol/L (98-107); Creatinine, Serum 1.47 mg/dL (0.55-1.02); EST Glomerular Filtration Rate 39 mL/min (>60); Est Glom Filt Rate - Afr Amer 48 mL/min (>60); Globulin 5.1 g/dL (2.2-4.2); Glucose 111 mg/dL (74-106); LDH 356 U/L (84-246); Magnesium 1.6 mg/dL (1.6-2.6); Potassium 4.5 mmol/L (3.5-5.1); Sodium Level 134 mmol/L (136-145); Total Bilirubin < 0.10 mg/dL (0.20-1.00)
[2019-08-26 15:51] LABS: Lactic Acid 1.5 mmol/L (0.4-1.9)
[2019-08-26 16:21] LABS: Differential Indicated SCAN CRITERIA MET; Platelet Estimate ADEQUATE (ADEQ); Red Cell Morphology NORM C+C NORMAL (NORM C&C)
== END ==
PROVIDERS: Family Provider Family Medicine; PCP Family Medicine; Referring Provider Family Medicine; Visit Provider Family Medicine
DX: R11.10 Vomiting, unspecified (principal)
CPT/HCPCS: 36415; 80053; 83605; 83615; 83735; 85025

== ENCOUNTER → 2019-09-22 11:33 | Outpatient (CLI) | payer MEDICARE, MEDICAID, SELFPAY ==
[2019-09-01 08:13] VITALS: BMI 19.7
[2019-09-22 14:19] LABS: ALB/GLOB Ratio 0.9 RATIO (0.9-2.4); AST(SGOT) 28 U/L (15-37); Alanine Aminotransfer ALT/SGPT 21 U/L (13-56); Albumin, Serum 3.5 g/dL (3.2-5.0); Alkaline Phosphatase 170 U/L (45-117); Anion Gap 8 (5-15); BUN 28 mg/dL (7-18); BUN/Creat Ratio 14.7 RATIO (10-20); Calcium,Total 8.8 mg/dL (8.5-10.1); Chloride 108 mmol/L (98-107); EST Glomerular Filtration Rate 29 mL/min (>60); Est Glom Filt Rate - Afr Amer 36 mL/min (>60); Globulin 3.9 g/dL (2.2-4.2); Glucose 109 mg/dL (74-106); Potassium 3.8 mmol/L (3.5-5.1); Protein, Total 7.4 g/dL (6.4-8.2); Sodium Level 136 mmol/L (136-145)
== END ==
PROVIDERS: PCP Family Medicine; Referring Provider Family Medicine; Visit Provider Family Medicine
DX: R60.0 Localized edema (principal)
CPT/HCPCS: 36415; 80053

== ENCOUNTER → 2019-10-17 12:00 | Outpatient (CLI) | payer MEDICARE, SELFPAY ==
[2019-09-01 08:13] VITALS: BMI 19.7
--- NOTE | 2019-10-17 12:24 | RAD_ITS ---
STUDY: X-RAY CHEST REASON FOR EXAM: Female, 53 years old. acute bronchitis, sob -- pt states she has sarcoidosis TECHNIQUE: PA and lateral views of the chest. COMPARISON: 08/12/2019 FINDINGS: No change in the coarse reticular opacities of lungs consistent with chronic interstitial lung disease, likely idiopathic fibrosis. No superimposed alveolar opacity within the lungs to suggest pneumonia or atelectasis. There is no demonstrated pleural abnormality. Normal size heart. Normal mediastinum and jordin. Normal visualized pulmonary arteries. Normal visualized aortic arch and descending thoracic aorta. Normal visualized thoracic spine. Healed fracture posterior right sixth rib. There is no demonstrated abnormality of the visualized soft tissue structures of the upper abdomen. RAD/Chest PA and Lateral IMPRESSION: No change from 08/12/2019. Electronically Signed: Carlos Arroyo MD at 15:55 EST Tel , Service support ,
[2019-10-17 14:07] LABS: Absolute Lymphocyte Count 3.19 X10^3/uL (0.83-4.51); Absolute Neutrophil Count 7.9 X10^3/uL (2.0-7.7); Basophil# 0.29 X10^3/uL; Basophil% 2.2 % (0-1); Eosinophil# 0.65 X10^3/uL; Eosinophils% 4.9 % (0-5); Hematocrit 37.3 % (37-47); Hemoglobin 12.3 g/dL (12.0-15.0); Lymphocyte # 3.19 X10^3/ul (4.0); Lymphocyte % 24.1 % (19-41); Mean Corpuscular Hgb 25.2 pg (27.0-32.0); Mean Corpuscular Volume 76.4 fL (81-99); Mean Platelet Vol. 9.6 fl (6.2-12.0); Monocyte# 1.12 X10^3/uL; Monocyte% 8.5 % (0-10); NRBC Flagged by Analyzer 0 % (0-5); Neutrophil # 7.89 X10^3/uL (2.7-7.7); Neutrophil % 59.8 % (47-70); Platelet Count 617 K/mm3 (150-450); RBC Distribution Width CV 16.7 % (11.6-14.6); RBC Distribution Width SD 45.4 fl (35.1-43.9); Red Blood Count 4.88 M/mm3 (4.2-5.4); White Blood Count 13.2 K/mm3 (4.4-11.0)
[2019-10-17 14:17] LABS: Anion Gap 8 (5-15); BUN 9 mg/dL (7-18); BUN/Creat Ratio 7.8 RATIO (10-20); Chloride 108 mmol/L (98-107); Creatinine, Serum 1.15 mg/dL (0.55-1.02); EST Glomerular Filtration Rate 52 mL/min (>60); Est Glom Filt Rate - Afr Amer 63 mL/min (>60); Glucose 113 mg/dL (74-106); Potassium 3.9 mmol/L (3.5-5.1); Sodium Level 135 mmol/L (136-145)
== END ==
PROVIDERS: PCP Family Medicine; Referring Provider Family Medicine; Visit Provider Family Medicine
DX: J20.9 Acute bronchitis, unspecified (principal); D86.9 Sarcoidosis, unspecified
CPT/HCPCS: 36415; 71046; 80048; 85025

== ENCOUNTER → 2019-10-29 12:43 | Outpatient (CLI) | payer MEDICARE, MEDICAID, SELFPAY ==
[2019-09-01 08:13] VITALS: BMI 19.7
[2019-10-29 15:29] LABS: Absolute Neutrophil Count 21.6 X10^3/uL (2.0-7.7); Basophil# 0.11 X10^3/uL; Basophil% 0.4 % (0-1); Eosinophil# 0.02 X10^3/uL; Eosinophils% 0.1 % (0-5); Hematocrit 29.3 % (37-47); Hemoglobin 10.2 g/dL (12.0-15.0); Lymphocyte % 5.8 % (19-41); Mean Corp Hgb Conc 34.8 g/dL (32-36); Mean Corpuscular Hgb 26.6 pg (27.0-32.0); Mean Corpuscular Volume 76.5 fL (81-99); Mean Platelet Vol. 9.4 fl (6.2-12.0); Monocyte# 2.02 X10^3/uL; Monocyte% 7.9 % (0-10); NRBC Flagged by Analyzer 0.3 % (0-5); Neutrophil # 21.59 X10^3/uL (2.7-7.7); Neutrophil % 84.2 % (47-70); POSITIVE DIFFERENTIAL YES; Platelet Count 406 K/mm3 (150-450); RBC Distribution Width CV 17.8 % (11.6-14.6); Red Blood Count 3.83 M/mm3 (4.2-5.4); White Blood Count 25.7 K/mm3 (4.4-11.0)
[2019-10-29 15:32] LABS: Differential Indicated SCAN CRITERIA MET
[2019-10-29 15:49] LABS: Amphetamine Urine VISTA NEGATIVE (<1000 ng/mL); Barbiturate Urine VISTA NEGATIVE (< 200 ng/mL); Benzodiazepine Urine VISTA NEGATIVE (< 200 ng/mL); Cocaine Urine VISTA NEGATIVE (< 300 ng/mL); Ecstacy Urine VISTA NEGATIVE (< 500 ng/mL); Methadone Urine VISTA NEGATIVE (< 300 ng/mL); PCP Urine VISTA NEGATIVE (< 25 ng/mL); THC Urine VISTA NEGATIVE (< 50 ng/mL); Vista UDS pH Range 6
[2019-10-29 15:57] LABS: Differential Comment SCANNED
[2019-10-29 15:58] LABS: ALB/GLOB Ratio 0.8 RATIO (0.9-2.4); AST(SGOT) 31 U/L (15-37); Alanine Aminotransfer ALT/SGPT 32 U/L (13-56); Albumin, Serum 3.4 g/dL (3.2-5.0); Alkaline Phosphatase 183 U/L (45-117); Anion Gap 4 (5-15); BUN 19 mg/dL (7-18); BUN/Creat Ratio 14.7 RATIO (10-20); CRP < 2.90 mg/L (0.0-3.0); Calcium,Total 8.5 mg/dL (8.5-10.1); Chloride 107 mmol/L (98-107); Creatinine, Serum 1.29 mg/dL (0.55-1.02); EST Glomerular Filtration Rate 46 mL/min (>60); Est Glom Filt Rate - Afr Amer 55 mL/min (>60); Globulin 4.5 g/dL (2.2-4.2); Glucose 112 mg/dL (74-106); Potassium 3.8 mmol/L (3.5-5.1); Protein, Total 7.9 g/dL (6.4-8.2); Sodium Level 135 mmol/L (136-145)
[2019-10-30 09:47] LABS: Pathologist Review Reviewed
== END ==
PROVIDERS: PCP Family Medicine; Referring Provider Family Medicine; Visit Provider Family Medicine
DX: J47.9 Bronchiectasis, uncomplicated (principal); G89.29 Other chronic pain
CPT/HCPCS: 36415; 80053; 80307; 85025; 86140; 87070; 87077; 87186; 87205

== ENCOUNTER 2019-11-05 06:15 | Emergency (ER) | payer MEDICARE, MEDICAID, SELFPAY ==
[2019-09-01 08:13] VITALS: BMI 19.7
[2019-11-05 06:16] VITALS: BP 124/110; PULSE 100; RESP 20; TEMP 37; O2SAT 98; BMI 20.3
--- NOTE | 2019-11-05 06:31 | ED.VIS.GEN ---
History of Present Illness Chief Complaint: Nausea/Vomiting Informant: Patient Narrative: Patient presents with nausea with vomiting over the last few days. She has had intermittent nausea and vomiting. No home treatment. She has had decreased ostomy output over the last few days as well. She is having gas in the ostomy. She has a history of mesenteric ischemia and had to have a partial bowel resection with ostomy. Patient stated she has chronic diffuse pain everywhere. No worse in her abdomen than the rest of her body. Comes in for further evaluation. - Past Medical History (1) Acute bronchitis Status: Acute (2) Acute kidney failure Status: Acute (3) Acute renal failure Status: Acute (4) Hyponatremia Status: Acute (5) Asthma Status: Chronic (6) Bronchiectasis Status: Chronic (7) COPD (chronic obstructive pulmonary disease) Status: Chronic (8) Chronic pain Status: Chronic (9) Chronic respiratory failure Status: Chronic (10) HTN (hypertension) Status: Chronic (11) Leukocytosis Status: Chronic (12) Sarcoidosis Status: Chronic (13) Acute right-sided thoracic back pain Status: Resolved (14) Acute right-sided thoracic back pain Status: Resolved (15) Radicular pain of thoracic region Status: Resolved (16) Radicular pain of thoracic region Status: Resolved (17) Rib fractures Status: Resolved (18) Fatigue Status: Inactive (19) Generalized weakness Status: Inactive (20) Hypokalemia Status: Inactive (21) Hypokalemia Status: Inactive (22) Hyponatremia Status: Inactive (23) Severe dehydration Status: Inactive Past Medical History - Allergies and Home Meds Allergies/Adverse Reactions: Allergies cephalexin monohydrate [From Keflex] Allergy (Mild, Verified 09/01/19 07:37) Itching doxycycline Adverse Reaction (Verified 09/01/19 07:37) Vomiting moxifloxacin HCl [From Avelox] Adverse Reaction (Verified 09/01/19 07:37) Vomiting Primary Care Physician: John Sears MD [Primary Care Provider] - Prior records reviewed: Yes Past Medical History: - - See problem list Surgical History: - - Bilateral tubal ligation. lung biopsy , colostomy with bowel resection Smoking Status: Former smoker Alcohol: None Drugs: None - Family History Maternal Family History: Reports: Diabetes, Hypertension, Stroke Paternal Family History: Reports: Stroke Review of Systems General: Denies: Chills, Fever, Sweats Eyes: Denies: Visual changes - bilaterally, Diplopia ENT: Denies: Rhinorrhea, Sore throat Cardiovascular: Denies: Chest pain, Palpitations Respiratory: Denies: Dyspnea, Cough, Dyspnea on exertion Gastrointestinal: Reports: Abdominal pain, Nausea, Vomiting. Denies: Diarrhea, Melena, Hematochezia Genitourinary: Denies: Dysuria, Hematuria, Frequency Musculoskeletal: Reports: Arthralgias. Denies: Back pain, Extremity Pain Skin: Denies: Rash, Wounds Neurological: Denies: Headache, Weakness, Numbness Physical Exam Vital Signs/Narrative: Vital Signs Temp Pulse Resp BP Pulse Ox 11/05/19 06:16 98.6 F 100 20 H 124/110 H 98 General: Well nourished, Well developed, No Acute Distress Head: Normocephalic, Atraumatic Eyes: Perrl, EOMI ENT: Moist mucous membranes, No rhinorrhea Neck: Supple, Nontender Cardiovascular: Regular rate, Regular rhythm, No murmurs Respiratory: No distress, CTA bilaterally, Chest nontender Abdomen: Soft, Nondistended, Normal bowel sounds, Tender - Mild diffuse tenderness,, - - Ostomy with mild output. Positive gas in the bag. Negative for: Nontender Back: Nontender, Normal Inspection Extremities: Nontender, No edema Skin: Normal color, No rash Neurological: Alert, Oriented x3, Cranial nerves II-XII grossly intact, Normal Strength, Normal Sensation Psychological: Normal affect, Normal Mood Diagnostic/Tx/Re-eval - Medical Decision Making Patient has mild dry heaves in the room. She appears nontoxic. Lab work and CAT scan obtained. Given IV fluids and Zofran. Further evaluation and treatment will be done by the a.m. physician Dr. Bridges. ED Disposition - Plan for ED Patient: Referrals: John Sears MD [Primary Care Provider] -
--- NOTE | 2019-11-05 07:16 | ED.RN ---
Asked Darnell to look for an IV. Report given to Alla.
[2019-11-05] MEDS: 0.9% Normal Saline 1,000 ML 1000 ML IV (07:40)
[2019-11-05] MEDS: Ondansetron 4 MG/2 ML Vial IV ×2 (07:40→10:10)
--- NOTE | 2019-11-05 07:55 | CT_ITS ---
STUDY: CT ABDOMEN AND PELVIS WITHOUT CONTRAST REASON FOR EXAM: Female, 53 years old. NAUSEA AND VOMITING X 3 DAYS. OSTOMY DUE TO MESENTERIC ISCHEMIA. SARCOIDOSIS RADIATION DOSAGE (If Supplied By Facility): CTDIvol = ( 6.07 ) mGy, DLP = ( 275.92 ) mGycm TECHNIQUE: Transaxial images were obtained from the dome of the diaphragm to the symphysis pubis without oral contrast, and without intravenous contrast. Sagittal and coronal images were reconstructed. Individualized dose optimization techniques were used for this CT. COMPARISON: Comparison is made with prior examination dated January 20, 2019. FINDINGS: Once again, there is evidence of interstitial fibrosis and honeycombing involving both lung bases. The visualized portions of the heart are within normal limits. Normal liver. There is absence of the gallbladder most likely secondary to prior cholecystectomy. Normal spleen. Normal pancreas. Normal bilateral adrenal glands. Normal right kidney. Normal left kidney. Normal visualized stomach. An ostomy is seen in the right lower quadrant. There are multiple dilated small bowel loops with air-fluid levels down to the level of the ostomy. A stenosis at the ostomy site should be ruled out. Normal colon. The appendix is visualized and appears normal. Normal abdominal aorta. Normal inferior vena cava. Normal retroperitoneum. Normal urinary bladder. Normal abdominal wall. Disc space narrowing and disc degeneration at the L5-S1 level. Findings suggestive of a right parasagittal disc herniation. CT/Abdomen/Pelvis without Cont IMPRESSION: Findings in keeping with small bowel obstruction down to the ostomy in the right lower quadrant. Stable appearance of the chronic scarring and honeycombing at the visualized lung bases. Electronically Signed: Fredy Olmos, at 9:32 EDT , Service support ,
[2019-11-05 08:09] LABS: Absolute Lymphocyte Count 1.49 X10^3/uL (0.83-4.51); Absolute Neutrophil Count 21.6 X10^3/uL (2.0-7.7); Basophil# 0.07 X10^3/uL; Basophil% 0.3 % (0-1); Eosinophil# 0.02 X10^3/uL; Eosinophils% 0.1 % (0-5); Hematocrit 40.9 % (37-47); Hemoglobin 14.2 g/dL (12.0-15.0); Lymphocyte # 1.49 X10^3/ul (4.0); Lymphocyte % 6.2 % (19-41); Mean Corp Hgb Conc 34.7 g/dL (32-36); Mean Corpuscular Hgb 26.5 pg (27.0-32.0); Mean Corpuscular Volume 76.3 fL (81-99); Mean Platelet Vol. 8.8 fl (6.2-12.0); Monocyte# 0.55 X10^3/uL; Monocyte% 2.3 % (0-10); NRBC Flagged by Analyzer 0.2 % (0-5); Neutrophil # 21.63 X10^3/uL (2.7-7.7); Neutrophil % 89.9 % (47-70); POSITIVE DIFFERENTIAL YES; Platelet Count 340 K/mm3 (150-450); RBC Distribution Width CV 19.3 % (11.6-14.6); RBC Distribution Width SD 50.4 fl (35.1-43.9); Red Blood Count 5.36 M/mm3 (4.2-5.4)
[2019-11-05 08:13] LABS: Differential Indicated SCAN CRITERIA MET
[2019-11-05] MEDS: oxyCODONE 5 MG Tablet 10 MG PO (08:21)
[2019-11-05 08:24] LABS: ALB/GLOB Ratio 0.7 RATIO (0.9-2.4); AST(SGOT) 45 U/L (15-37); Alanine Aminotransfer ALT/SGPT 37 U/L (13-56); Albumin, Serum 3.9 g/dL (3.2-5.0); Alkaline Phosphatase 208 U/L (45-117); Anion Gap 13 (5-15); BUN 58 mg/dL (7-18); BUN/Creat Ratio 22.1 RATIO (10-20); Calcium,Total 8.6 mg/dL (8.5-10.1); Chloride 95 mmol/L (98-107); Creatinine, Serum 2.62 mg/dL (0.55-1.02); EST Glomerular Filtration Rate 20 mL/min (>60); Est Glom Filt Rate - Afr Amer 25 mL/min (>60); Estimated Creatinine Clearance 19.64 ml/min; Globulin 5.3 g/dL (2.2-4.2); Glucose 127 mg/dL (74-106); Lipase 57 U/L (73-393); Potassium 4.3 mmol/L (3.5-5.1); Protein, Total 9.2 g/dL (6.4-8.2); Sodium Level 126 mmol/L (136-145)
[2019-11-05 08:45] LABS: Anisocytosis 1+; Platelet Estimate ADEQUATE (ADEQ); Target Cells 2+
[2019-11-05] MEDS: Morphine 4 MG/ML Syringe IV ×2 (09:14→12:13)
[2019-11-05] MEDS: 0.9% Normal Saline 1,000 ML 150 ML IV (09:14)
--- NOTE | 2019-11-05 10:03 | RAD_ITS ---
STUDY: X-RAY - ABDOMEN/PELVIS REASON FOR EXAM: Female, 53 years old. Ng placement #2 TECHNIQUE: Single AP view of the abdomen / pelvis. COMPARISON: None. FINDINGS: The tip of the nasogastric tube is coiled at the level of the gastroesophageal junction with retrograde placement of the tip in the distal esophagus. RAD/Abdomen Single View (Portable) IMPRESSION: The nasogastric tube is coiled at the gastroesophageal junction with a retrograde position of the tip of the nasogastric tube. Electronically Signed: Fredy Olmos, at 11:37 EDT , Service support ,
[2019-11-05 10:10] VITALS: BP 158/98; PULSE 107; RESP 20; TEMP 37.2; O2SAT 94
--- NOTE | 2019-11-05 10:10 | RAD_ITS ---
STUDY: X-RAY - ABDOMEN/PELVIS REASON FOR EXAM: Female, 53 years old. Ng placement TECHNIQUE: Single AP view of the abdomen / pelvis. COMPARISON: Comparison is made with prior study done earlier. FINDINGS: The nasogastric tube is coiled in the fundal portion of the stomach. The distal tip lies within the mid to distal esophagus. There are dilated loops of the small intestine with a non-distended colon consistent with a small bowel obstruction. The visualized liver, spleen and kidneys are grossly normal in size and morphology. Normal soft tissue structures. Normal visualized osseous structures. RAD/Abdomen Single View (Portable) IMPRESSION: The nasogastric tube is coiled in the fundal portion of the stomach. The distal tip is in the mid to distal esophagus. Electronically Signed: Fredy Olmos, at 11:39 EDT , Service support ,
[2019-11-05 10:12] LABS: Lactic Acid 2.6 mmol/L (0.4-1.9)
--- NOTE | 2019-11-05 10:30 | RAD_ITS ---
STUDY: X-RAY - ABDOMEN/PELVIS REASON FOR EXAM: Female, 53 years old. Ng placement #3 TECHNIQUE: Single AP view of the abdomen / pelvis. COMPARISON: None. FINDINGS: The nasogastric tube is coiled in the mid esophagus. There are dilated loops of the small intestine with a non-distended colon consistent with a small bowel obstruction. RAD/Abdomen Single View (Portable) IMPRESSION: The nasogastric tube is coiled in the midesophagus. Electronically Signed: Fredy Olmos, at 11:37 EDT , Service support ,
--- NOTE | 2019-11-05 10:43 | ED.DEP ---
ED Disposition - Plan for ED Patient: Disposition: [facility] Diagnosis: Acute kidney injury, Small bowel obstruction, Elevated lactic acid level Referrals: John Sears MD [Primary Care Provider] -
[2019-11-05] MEDS: Lidocaine 4% 5 ML Ampul 2 ML INHALATION (11:02)
--- NOTE | 2019-11-05 11:35 | RAD_ITS ---
STUDY: X-RAY - ABDOMEN/PELVIS REASON FOR EXAM: Female, 53 years old. NG PLACEMENT #4 TECHNIQUE: Single AP view of the abdomen / pelvis. COMPARISON: Comparison is made with prior study done earlier today. FINDINGS: The tip of the nasogastric tube is in the body of the stomach. Stable scarring in both lungs. RAD/Abdomen Single View (Portable) IMPRESSION: The tip of the nasogastric tube is in the body of the stomach. Electronically Signed: Fredy Olmos, at 12:34 EDT , Service support ,
--- NOTE | 2019-11-05 11:35 | NURSING ---
[facility] ROOM 9015 NURSE TO NURSE [phone]
[2019-11-05 13:35] LABS: Reflex Lactate? Y
== END 2019-11-05 12:47 | disposition short-term general hospital (02) ==
PROVIDERS: Emergency Medicine; Emergency Provider Emergency Medicine; PCP Family Medicine
DX: R11.2 Nausea with vomiting, unspecified (principal); R10.9 Unspecified abdominal pain; Z93.3 Colostomy status; D86.9 Sarcoidosis, unspecified; J47.9 Bronchiectasis, uncomplicated; I10 Essential (primary) hypertension; G89.29 Other chronic pain; Z87.448 Personal history of other diseases of urinary system; Z90.49 Acquired absence of other specified parts of digestive tract; Z79.899 Other long term (current) drug therapy; Z87.891 Personal history of nicotine dependence
CPT/HCPCS: 36415; 74018; 74176; 80053; 83605; 83690; 85025; 94640; 96361; 96374; 96375; 96376; 99285; J7030; A4216; J2405

== ENCOUNTER → 2019-11-14 15:38 | Outpatient (CLI) | payer MEDICARE, MEDICAID, SELFPAY ==
[2019-11-05 06:16] VITALS: BMI 20.3
== END ==
PROVIDERS: PCP Family Medicine; Referring Provider Family Medicine; Visit Provider Family Medicine
DX: J47.9 Bronchiectasis, uncomplicated (principal)
CPT/HCPCS: 87070; 87077; 87186; 87205

== ENCOUNTER → 2019-12-22 | Outpatient (CLI) | payer MEDICARE, MEDICAID, SELFPAY | END | disposition home or self-care (01) | PROVIDERS: PCP Family Medicine; Referring Provider Family Medicine; Visit Provider Family Medicine | DX: J47.9 Bronchiectasis, uncomplicated (principal) | CPT/HCPCS: 87070; 87077; 87186; 87205; 87633 ==

== ENCOUNTER → 2019-12-31 12:14 | Outpatient (CLI) | payer MEDICARE, MEDICAID, SELFPAY ==
[2019-12-31 15:23] LABS: Absolute Lymphocyte Count 3.47 X10^3/uL (0.83-4.51); Absolute Neutrophil Count 14.8 X10^3/uL (2.0-7.7); Basophil# 0.17 X10^3/uL; Basophil% 0.8 % (0-1); Eosinophil# 0.48 X10^3/uL; Eosinophils% 2.2 % (0-5); Hematocrit 39.2 % (37-47); Hemoglobin 12.9 g/dL (12.0-15.0); Lymphocyte # 3.47 X10^3/ul (4.0); Lymphocyte % 16.1 % (19-41); Mean Corp Hgb Conc 32.9 g/dL (32-36); Mean Corpuscular Hgb 27.9 pg (27.0-32.0); Mean Corpuscular Volume 84.7 fL (81-99); Mean Platelet Vol. 9.4 fl (6.2-12.0); Monocyte# 2.49 X10^3/uL; Monocyte% 11.5 % (0-10); NRBC Flagged by Analyzer 0.1 % (0-5); Neutrophil # 14.78 X10^3/uL (2.7-7.7); Neutrophil % 68.5 % (47-70); POSITIVE DIFFERENTIAL YES; Platelet Count 322 K/mm3 (150-450); RBC Distribution Width CV 17.6 % (11.6-14.6); RBC Distribution Width SD 52.6 fl (35.1-43.9); Red Blood Count 4.63 M/mm3 (4.2-5.4); White Blood Count 21.6 K/mm3 (4.4-11.0)
[2019-12-31 15:27] LABS: Differential Indicated SCAN CRITERIA MET
[2019-12-31 15:58] LABS: ALB/GLOB Ratio 0.7 RATIO (0.9-2.4); AST(SGOT) 34 U/L (15-37); Alanine Aminotransfer ALT/SGPT 19 U/L (13-56); Albumin, Serum 3.1 g/dL (3.2-5.0); Alkaline Phosphatase 193 U/L (45-117); Anion Gap 5 (5-15); BUN 18 mg/dL (7-18); BUN/Creat Ratio 10.2 RATIO (10-20); Calcium,Total 8.9 mg/dL (8.5-10.1); Chloride 105 mmol/L (98-107); Creatinine, Serum 1.76 mg/dL (0.55-1.02); EST Glomerular Filtration Rate 32 mL/min (>60); Est Glom Filt Rate - Afr Amer 39 mL/min (>60); Globulin 4.7 g/dL (2.2-4.2); Glucose 113 mg/dL (74-106); Magnesium 1.4 mg/dL (1.6-2.6); Potassium 4.6 mmol/L (3.5-5.1); Protein, Total 7.8 g/dL (6.4-8.2); Sodium Level 133 mmol/L (136-145); Thyroid Stim Hormone (TSH) 0.14 uIU/mL (0.358-3.74)
[2019-12-31 16:39] LABS: Platelet Estimate ADEQUATE (ADEQ)
[2019-12-31 16:40] LABS: Anisocytosis RARE; Red Cell Morphology NORM C+C NORMAL (NORM C&C); Target Cells 1+
[2020-01-01 11:32] LABS: Pathologist Review Reviewed
== END ==
PROVIDERS: PCP Family Medicine; Visit Provider Family Medicine
DX: R00.0 Tachycardia, unspecified (principal); D86.0 Sarcoidosis of lung
CPT/HCPCS: 36415; 80053; 83735; 84443; 85025

== ENCOUNTER → 2020-01-08 12:09 | Outpatient (CLI) | payer MEDICARE, MEDICAID, SELFPAY ==
--- NOTE | 2020-01-08 12:23 | RAD_ITS ---
STUDY: X-RAY - UNILATERAL RIBS ( LEFT ) WITH CHEST REASON FOR EXAM: Female, 54 years old. PAIN IN LEFT LOWER RIBS LATERALLY RADITING ANTERIORLY. PATIENT STATES SHE HAS ACUTE REACTIVE AIRWAY LUNG DISEASE AND COUGHS ALL THE TIME. HAS BEEN HAVING PAIN IN HER RIBS FOR A COUPLE OF DAYS NOW SHE STATES DUE TO COUGHING. TECHNIQUE - RIBS: 4 view(s) of the ribs. TECHNIQUE - CHEST: Single AP portable view of the chest. COMPARISON: 10/17/2019 FINDINGS - RIBS: There is an old fracture of the left seventh rib. There is a new nondisplaced fracture in the lateral anterior aspect of the left eighth rib. FINDINGS - CHEST: There are interstitial fibrotic changes of the lungs. There is no demonstrated pleural abnormality. Normal size heart. Normal mediastinum and jordin. Normal visualized pulmonary arteries. Normal visualized aortic arch and descending thoracic aorta. Normal visualized thoracic spine. Old healed bilateral rib fractures are noted. There is a new nondisplaced fracture of the anterior aspect of the left eighth rib There is no demonstrated abnormality of the visualized soft tissue structures of the upper abdomen. RAD/Ribs Uni Min 3V w/PA Chest IMPRESSION: RIBS: There is an old fracture of the left seventh rib. There is a new nondisplaced fracture in the lateral anterior aspect of the left eighth rib. CHEST: Chronic interstitial lung disease. Electronically Signed: Rosa Ortiz, at 12:51 EDT Tel , Service support ,
[2020-01-08 15:38] LABS: Absolute Lymphocyte Count 2.17 X10^3/uL (0.83-4.51); Absolute Neutrophil Count 7.2 X10^3/uL (2.0-7.7); Basophil# 0.09 X10^3/uL; Basophil% 0.9 % (0-1); Eosinophil# 0.01 X10^3/uL; Eosinophils% 0.1 % (0-5); Hematocrit 34.5 % (37-47); Hemoglobin 11.4 g/dL (12.0-15.0); Lymphocyte # 2.17 X10^3/ul (4.0); Lymphocyte % 20.6 % (19-41); Mean Corpuscular Hgb 26.5 pg (27.0-32.0); Mean Platelet Vol. 9.8 fl (6.2-12.0); Monocyte# 1.02 X10^3/uL; Monocyte% 9.7 % (0-10); NRBC Flagged by Analyzer 0 % (0-5); Neutrophil # 7.17 X10^3/uL (2.7-7.7); Neutrophil % 68.2 % (47-70); Platelet Count 452 K/mm3 (150-450); RBC Distribution Width CV 17.5 % (11.6-14.6); RBC Distribution Width SD 50.2 fl (35.1-43.9); Red Blood Count 4.31 M/mm3 (4.2-5.4); White Blood Count 10.5 K/mm3 (4.4-11.0)
[2020-01-08 16:01] LABS: ALB/GLOB Ratio 0.6 RATIO (0.9-2.4); AST(SGOT) 27 U/L (15-37); Alanine Aminotransfer ALT/SGPT 24 U/L (13-56); Albumin, Serum 2.9 g/dL (3.2-5.0); Alkaline Phosphatase 198 U/L (45-117); Anion Gap 8 (5-15); BUN 9 mg/dL (7-18); BUN/Creat Ratio 7.2 RATIO (10-20); CRP < 2.90 mg/L (0.0-3.0); Calcium,Total 9.2 mg/dL (8.5-10.1); Chloride 101 mmol/L (98-107); Creatinine, Serum 1.25 mg/dL (0.55-1.02); EST Glomerular Filtration Rate 48 mL/min (>60); Est Glom Filt Rate - Afr Amer 57 mL/min (>60); Glucose 62 mg/dL (74-106); Lipase 66 U/L (73-393); Protein, Total 7.9 g/dL (6.4-8.2); Sodium Level 133 mmol/L (136-145)
== END ==
PROVIDERS: PCP Family Medicine; Referring Provider Family Medicine; Visit Provider Family Medicine
DX: R07.81 Pleurodynia (principal)
CPT/HCPCS: 36415; 71101; 80053; 83690; 85025; 86140

== ENCOUNTER 2020-01-19 14:33 | Emergency (ER) | payer MEDICARE, MEDICAID, SELFPAY ==
[2020-01-19] VITALS (8 sets, daily range): BP systolic 131–167; BP diastolic 88–129; PULSE 62–112; RESP 14–24; TEMP 36.7; O2SAT 94–100; BMI 23.8
[2020-01-19] MEDS: Ziprasidone IM 20 MG/ML VIAL IM (14:58)
--- NOTE | 2020-01-19 15:00 | ED.RN ---
Pt flailing around in bed, throwing her body against the side rails. Pt keeps screaming and spitting. Pt is A&Ox3, but not acting appropriately. Pt keep yelling help me, i haven't slept in 3 days.
--- NOTE | 2020-01-19 15:02 | ED.RN ---
Dr Steen at bedside, patient not following commands. still flailing and screaming. Dr Steen gives verbal orders for Geodon 20mg IM to be given.
[2020-01-19 16:06] LABS: Absolute Lymphocyte Count 3.68 X10^3/uL (0.83-4.51); Absolute Neutrophil Count 18.3 X10^3/uL (2.0-7.7); Basophil# 0.16 X10^3/uL; Basophil% 0.6 % (0-1); Eosinophil# 0.07 X10^3/uL; Eosinophils% 0.3 % (0-5); Hematocrit 33.9 % (37-47); Hemoglobin 11.5 g/dL (12.0-15.0); Lymphocyte # 3.68 X10^3/ul (4.0); Lymphocyte % 14.3 % (19-41); Mean Corp Hgb Conc 33.9 g/dL (32-36); Mean Corpuscular Hgb 27.2 pg (27.0-32.0); Mean Corpuscular Volume 80.1 fL (81-99); Mean Platelet Vol. 9.8 fl (6.2-12.0); Monocyte# 3.16 X10^3/uL; Monocyte% 12.3 % (0-10); NRBC Flagged by Analyzer 0.2 % (0-5); Neutrophil # 18.28 X10^3/uL (2.7-7.7); Neutrophil % 71.3 % (47-70); POSITIVE DIFFERENTIAL YES; Platelet Count 350 K/mm3 (150-450); RBC Distribution Width CV 18.6 % (11.6-14.6); RBC Distribution Width SD 52.1 fl (35.1-43.9); Red Blood Count 4.23 M/mm3 (4.2-5.4); White Blood Count 25.7 K/mm3 (4.4-11.0)
--- NOTE | 2020-01-19 16:07 | RAD_ITS ---
STUDY: X-RAY CHEST REASON FOR EXAM: Female, 54 years old. ALT LOC TECHNIQUE: AP portable COMPARISON: October 17, 2019 FINDINGS: There is diffuse interstitial thickening seen throughout both lungs. There is no demonstrated pleural abnormality. Normal size heart. Normal mediastinum and jordin. Normal visualized pulmonary arteries. Tortuous aortic arch and descending thoracic aorta. Dorsal spine demonstrates degenerative change Normal visualized clavicles, and shoulders. Old healed fracture of the right sixth rib There is no demonstrated abnormality of the visualized soft tissue structures of the upper abdomen. There is little significant change since prior study given differences in imaging parameters RAD/Chest 1 View (Portable) IMPRESSION: Chronic interstitial changes without definitive evidence for acute cardiopulmonary pathology. CT may be useful for further evaluation if clinically warranted Electronically Signed: Jovi Wilkinson MD at 16:19 EDT , Service support ,
[2020-01-19 16:11] LABS: Differential Indicated SCAN CRITERIA MET
--- NOTE | 2020-01-19 16:15 | NURSING ---
ALCOHOL AND BMP HEMOLIZED.
[2020-01-19 16:46] LABS: Anisocytosis 2+; Platelet Estimate ADEQUATE (ADEQ); Target Cells 2+
--- NOTE | 2020-01-19 16:52 | ED.VIS.GEN ---
History of Present Illness Chief Complaint: Alt LOC Narrative: Patient presenting for evaluation secondary to altered mental status. Patient has a underlying history of polysubstance abuse, mostly cocaine in the past. Patient's ex- apparently took her to [facility] today. Upon picking her up from [facility] she was acting bizarrely. EMS was contacted, the patient had some decreased level of consciousness and she was given Narcan. Upon receiving Narcan the patient started to have significant psychomotor agitation, and was brought to the emergency department. Patient denies that she took anything today, and states I am short of breath and tells me that potentially it is because I have sarcoid. Additional review of systems is unable to be obtained secondary to the patient's level of psychomotor agitation. Past Medical History - Allergies and Home Meds Allergies/Adverse Reactions: Allergies cephalexin monohydrate [From Keflex] Allergy (Mild, Verified 09/01/19 07:37) Itching doxycycline Adverse Reaction (Verified 09/01/19 07:37) Vomiting moxifloxacin HCl [From Avelox] Adverse Reaction (Verified 09/01/19 07:37) Vomiting Primary Care Physician: John Sears MD [Primary Care Provider] - Prior records reviewed: Yes Past Medical History: - - Substance abuse, seizures, psychiatric disorders, bowel obstructions with colostomy Surgical History: - - Bilateral tubal ligation. lung biopsy , colostomy with bowel resection Smoking Status: Former smoker - Family History Maternal Family History: Reports: Diabetes, Hypertension, Stroke Paternal Family History: Reports: Stroke Review of Systems ROS: Unable to Obtain Physical Exam Vital Signs/Narrative: Vital Signs Temp Pulse Resp BP Pulse Ox 01/19/20 14:36 98.0 F 112 H 22 H 165/129 H 94 Inital Vital Signs reviewed: Yes General: Unkempt, - - Significant psychomotor agitation, moving around the bed Head: Normocephalic, Atraumatic Eyes: EOMI ENT: Moist mucous membranes, No rhinorrhea Neck: Supple Cardiovascular: Regular rhythm, Tachycardia Respiratory: No distress, CTA bilaterally, Chest nontender Abdomen: Soft, Nontender, Nondistended, Normal bowel sounds, - - Patient's colostomy bag is held in place with electrical tape Extremities: Nontender, No edema Skin: Normal color Neurological: Alert, - - Moving upper and lower extremities equally. Perseverating on being short of breath, but speaking in full sentences and not in respiratory distress with normal oxygenation. Psychological: Agitated Diagnostic/Tx/Re-eval Clinical Impression(s) from Imaging Studies Chest X-Ray 01/19/20 16:07 IMPRESSION: Chronic interstitial changes without definitive evidence for acute cardiopulmonary pathology. CT may be useful for further evaluation if clinically warranted Electronically Signed: Jovi Wilkinson MD at 16:19 EDT , Service support , Laboratory Data 01/19/20 01/19/20 01/19/20 15:50 15:50 15:50 WBC 25.7 H RBC 4.23 Hgb 11.5 L Hct 33.9 L MCV 80.1 L MCH 27.2 MCHC 33.9 RDW Std Deviation 52.1 H RDW Coeff of Mary 18.6 H Plt Count 350 MPV 9.8 Immature Gran % (Auto) 1.200 H Neut % (Auto) 71.3 H Lymph % (Auto) 14.3 L Orange % (Auto) 12.3 H Eos % (Auto) 0.3 Baso % (Auto) 0.6 Absolute Neuts (auto) 18.3 H Absolute Lymphs (auto) 3.68 Nucleated RBC % 0.2 Differential Comment Diff Path Review May foll Platelet Estimate ADEQUATE Anisocytosis 2+ Target Cells 2+ Sodium Cancelled Potassium Cancelled Chloride Cancelled Carbon Dioxide Cancelled Anion Gap Cancelled BUN Cancelled Creatinine Cancelled Estim Creat Clear Calc Cancelled Est GFR (MDRD) Af Amer Cancelled Est GFR (MDRD) Non-Af Cancelled BUN/Creatinine Ratio Cancelled Glucose Cancelled Calcium Cancelled Urine Opiates Screen Urine Methadone Screen Ur Barbiturates Screen Ur Phencyclidine Scrn Ur Amphetamines Screen U Methamphetamin-MDMA U Benzodiazepines Scrn Urine Cocaine Screen U Cannabinoids Screen Ur Drug Screen Comment Ethyl Alcohol Cancelled 01/19/20 01/19/20 01/19/20 16:00 16:40 16:40 WBC RBC Hgb Hct MCV MCH MCHC RDW Std Deviation RDW Coeff of Mary Plt Count MPV Immature Gran % (Auto) Neut % (Auto) Lymph % (Auto) Orange % (Auto) Eos % (Auto) Baso % (Auto) Absolute Neuts (auto) Absolute Lymphs (auto) Nucleated RBC % Differential Comment Diff Path Review Platelet Estimate Anisocytosis Target Cells Sodium 145 Potassium 4.1 Chloride 118 H Carbon Dioxide 16.0 L Anion Gap 11 BUN 31 H Creatinine 1.48 H Estim Creat Clear Calc 31.21 Est GFR (MDRD) Af Amer 47 L Est GFR (MDRD) Non-Af 39 L BUN/Creatinine Ratio 20.9 H Glucose 80 Calcium 9.0 Urine Opiates Screen POSITIVE H Urine Methadone Screen NEGATIVE Ur Barbiturates Screen NEGATIVE Ur Phencyclidine Scrn NEGATIVE Ur Amphetamines Screen NEGATIVE U Methamphetamin-MDMA NEGATIVE U Benzodiazepines Scrn NEGATIVE Urine Cocaine Screen NEGATIVE U Cannabinoids Screen NEGATIVE Ur Drug Screen Comment Ethyl Alcohol < 3.0 - Medical Decision Making Patient presented secondary to altered mental status. Patient was exhibiting significant psychomotor agitation upon arrival and required chemical sedation with Geodon. Upon patient becoming more calm, work-up was obtained. Patient was found to have a leukocytosis in the 20s but it appears that she has had multiple similar prior episodes and currently has no signs of infection. Chest x-ray shows chronic changes by my personal review as well as radiology. Patient's urine toxicology screen demonstrates opiates which would be consistent with the patient being altered and then having a acute change with Narcan. Currently the patient is laying in bed, somewhat sedated from Geodon but still slightly having increased psychomotor agitation moving her legs around in the bed. Patient at this point will require observation until she is more clinically sober as I am suspicious that she is under the influence of a sympathomimetic potentially methamphetamine. Patient will be signed out to the oncoming physician. ED Disposition - Plan for ED Patient: Diagnosis: Altered mental status, Polysubstance abuse, Leukocytosis Referrals: John Sears MD [Primary Care Provider] -
[2020-01-19 16:57] LABS: Amphetamine Urine VISTA NEGATIVE (<1000 ng/mL); Barbiturate Urine VISTA NEGATIVE (< 200 ng/mL); Benzodiazepine Urine VISTA NEGATIVE (< 200 ng/mL); Cocaine Urine VISTA NEGATIVE (< 300 ng/mL); Ecstacy Urine VISTA NEGATIVE (< 500 ng/mL); Methadone Urine VISTA NEGATIVE (< 300 ng/mL); PCP Urine VISTA NEGATIVE (< 25 ng/mL); THC Urine VISTA NEGATIVE (< 50 ng/mL); Vista UDS pH Range 5
[2020-01-19 17:37] LABS: Alcohol, Blood (Medical)-Serum < 3.0 mg/dL; Anion Gap 11 (5-15); BUN 31 mg/dL (7-18); BUN/Creat Ratio 20.9 RATIO (10-20); Chloride 118 mmol/L (98-107); Creatinine, Serum 1.48 mg/dL (0.55-1.02); EST Glomerular Filtration Rate 39 mL/min (>60); Est Glom Filt Rate - Afr Amer 47 mL/min (>60); Estimated Creatinine Clearance 31.21 ml/min; Glucose 80 mg/dL (74-106); Potassium 4.1 mmol/L (3.5-5.1); Sodium Level 145 mmol/L (136-145)
[2020-01-20] VITALS (9 sets, daily range): BP systolic 129–164; BP diastolic 7–109; PULSE 68–108; RESP 15–21; O2SAT 94–100
--- NOTE | 2020-01-20 01:37 | CT_ITS ---
STUDY: CT BRAIN WITHOUT CONTRAST REASON FOR EXAM: Female, 54 years old. ALTERED LOC RADIATION DOSAGE (If Supplied By Facility): CTDIvol = ( 44.99 ) mGy, DLP = ( 745.49 ) mGycm TECHNIQUE: Transaxial CT imaging of the brain was performed without administration of intravenous contrast material. Individualized dose optimization techniques were used for this CT. COMPARISON: No relevant priors. FINDINGS: Normal soft tissue structures. Normal calvarium. Normal size ventricles and extra-axial spaces for the patient''s age. Normal white matter tracts of the cerebral hemispheres. Normal basal ganglia and thalami. Normal brainstem. Normal cerebellum. There is no intracranial hemorrhage. There are no findings of an acute ischemic infarction. Normal visualized paranasal sinuses. CT/Brain/Head without Contrast IMPRESSION: Normal unenhanced CT scan of the brain. Electronically Signed: Ede Harris MD at 2:35 EDT , Service support ,
[2020-01-20] MEDS: Ziprasidone IM 20 MG/ML VIAL 10 MG IM (01:43)
[2020-01-20 02:44] LABS: Absolute Lymphocyte Count 2.57 X10^3/uL (0.83-4.51); Absolute Neutrophil Count 18.4 X10^3/uL (2.0-7.7); Basophil# 0.19 X10^3/uL; Basophil% 0.8 % (0-1); Eosinophil# 0.22 X10^3/uL; Eosinophils% 0.9 % (0-5); Hematocrit 38.9 % (37-47); Hemoglobin 13.5 g/dL (12.0-15.0); Lymphocyte # 2.57 X10^3/ul (4.0); Lymphocyte % 10.8 % (19-41); Mean Corp Hgb Conc 34.7 g/dL (32-36); Mean Corpuscular Hgb 27.1 pg (27.0-32.0); Mean Corpuscular Volume 78.1 fL (81-99); Mean Platelet Vol. 8.9 fl (6.2-12.0); Monocyte% 9.3 % (0-10); NRBC Flagged by Analyzer 0.1 % (0-5); Neutrophil # 18.39 X10^3/uL (2.7-7.7); Neutrophil % 77.5 % (47-70); POSITIVE DIFFERENTIAL YES; Platelet Count 301 K/mm3 (150-450); RBC Distribution Width CV 17.8 % (11.6-14.6); Red Blood Count 4.98 M/mm3 (4.2-5.4); White Blood Count 23.7 K/mm3 (4.4-11.0)
[2020-01-20 02:45] LABS: Differential Indicated SCAN CRITERIA MET
[2020-01-20 02:59] LABS: Anion Gap 10 (5-15); BUN 23 mg/dL (7-18); BUN/Creat Ratio 19.2 RATIO (10-20); Calcium,Total 9.5 mg/dL (8.5-10.1); Chloride 116 mmol/L (98-107); EST Glomerular Filtration Rate 50 mL/min (>60); Est Glom Filt Rate - Afr Amer 60 mL/min (>60); Glucose 74 mg/dL (74-106); Potassium 3.6 mmol/L (3.5-5.1); Sodium Level 145 mmol/L (136-145)
[2020-01-20 03:12] LABS: Anisocytosis 1+; Hypochromasia 1+; Platelet Estimate ADEQUATE (ADEQ); Target Cells 1+
[2020-01-20 03:13] LABS: Spherocyte RARE
[2020-01-20 03:13] LABS: Bacteria 0 SEEN /hpf (None Seen); Glucose, Dipstick Normal (Normal); Ketone-Dipstick 50 mg/dl (Negative); Leukocyte Esterase-Dipstick Negative /ul (Negative); Mucous, Urine 0 SEEN /hpf (<or=2+); Nitrite-Dipstick Negative (Negative); Occult Blood-Urine 10 /ul (Negative); Protein-Dipstick 15 mg/dl (Negative); Red Blood Cells-Urine 0 SEEN /hpf (0-5); Specific Gravity, Urine 1.015 (1.002-1.030); Squamous Epithelial Cells - UA 0 SEEN /hpf (5-10); Urine Bilirubin Dipstick Negative (Negative); Urine Urobilinogen Normal (Normal); White Blood Cells 0 SEEN /hpf (0-5)
[2020-01-20 03:15] LABS: Color, Urine Yellow (Yellow); Urine Clarity Clear (Clear)
--- NOTE | 2020-01-20 10:30 | ED.DCSUM_ITS ---
- ER Visit Summary Date of Service: 01/20/20 Chief Complaint: [] History of Present Illness: The patient is a 54 F [] Physical Examination: [] Test Results: [] Emergency Department Course and Treatment: [] Treatment Plan: [] Disposition: [] Impression: [] Patient signed out to me by the night physician to reevaluate once awake. Patient is now awake and eating in bed. She appears to be back to her baseline. She wants to go home. She will be discharged home. She is hemodynamically stable and protecting her airway. Patient denies any drug use but states that she thinks that she took her home medications on an empty stomach which is what caused her episode last night. Patient is on multiple sedating medications including a muscle relaxer, gabapentin and Dilaudid. Diagnosis: 1. Mental status change 2. Opioid overdose This note was generated with [employer] dictation software. It may contain incorrect words, spelling, and punctuation that were not noted in review of the chart prior to signing ED Disposition - Plan for ED Patient: Disposition: Home or Assisted Living Diagnosis: Altered mental status, Polysubstance abuse, Leukocytosis Instructions: ED ALOC Referrals: John Sears MD [Primary Care Provider] -
--- NOTE | 2020-01-20 10:33 | NURSING ---
Hampton catheter removed
[2020-01-20 11:30] LABS: Pathologist Review Reviewed
[2020-01-20 11:33] LABS: Pathologist Review Reviewed
--- NOTE | 2020-01-20 12:30 | CM.ED ---
SOCIAL WORK INFORMANT: DR. RIVERA REASON FOR REFERRAL: RESOURCES FOR SUBSTANCE ABUSE UPDATED BY DR. RIVERA, SPOKE WITH PATIENT'S PCP-DR. GARCIA WHO REPORTS FAMILY HAS BEEN IN CONTACT WITH HIM REGARDING CONCERNS FOR PATIENT'S MEDICATIONS/ABUSE. PLAN FOR PATIENT TO BE REFERRED TO PAIN MANAGEMENT. MET WITH PATIENT IN ROOM. INTRODUCED ROLE AND REASON FOR REFERRAL. PATIENT REPORTS TO ONLY TAKE MEDICATIONS PRESCRIBED AND STATES MY IS THE ONE WHO GIVES THEM TO ME. PATIENT DENIES ANY CURRENT SUBSTANCE ABUSE AND STATES WAS ADDICTED TO CRACK COCAINE 10 YEARS AGO. PATIENT DENIES ANY NEEDS FOR TREATMENT. EDUCATION WAS PROVIDED ON ONE EIGHTY IF NEEDED IN THE FUTURE. DR. RIVERA UPDATED ON THE ABOVE. PLAN: HOME WITH Sol CHOU, JUNIOR PARALEGAL, REMELTER.
--- NOTE | 2020-01-20 14:32 | ED.RN ---
to car via w/c. here to pick pt up.
== END 2020-01-20 14:33 | disposition home or self-care (01) ==
PROVIDERS: Emergency Medicine; Emergency Provider Emergency Medicine; PCP Family Medicine
DX: T40.2X1A Poisoning by other opioids, accidental (unintentional), initial encounter (principal); R41.82 Altered mental status, unspecified; Y92.9 Unspecified place or not applicable; F19.10 Other psychoactive substance abuse, uncomplicated; D72.829 Elevated white blood cell count, unspecified; R06.02 Shortness of breath; R56.9 Unspecified convulsions; Z88.1 Allergy status to other antibiotic agents; Z93.3 Colostomy status; Z87.891 Personal history of nicotine dependence; Z79.899 Other long term (current) drug therapy
CPT/HCPCS: 36415; 70450; 71045; 80048; 80307; 80320; 81001; 85025; 96372; 99285; J7030; A4216; G0480; J3486

== ENCOUNTER 2020-01-21 04:27 | Emergency (ER) | payer MEDICARE, MEDICAID, SELFPAY ==
[2020-01-19 14:36] VITALS: BMI 23.8
[2020-01-21 04:28] VITALS: BP 170/108; PULSE 109; RESP 18; TEMP 36.1; O2SAT 94; BMI 21.7
--- NOTE | 2020-01-21 04:38 | RAD_ITS ---
STUDY: X-RAY CHEST REASON FOR EXAM: Female, 54 years old. chronic sob TECHNIQUE: AP portable COMPARISON: 02/18/2020. FINDINGS: Cardiac and mediastinal silhouettes are unchanged. Persistent diffuse coarse interstitial increased lung markings likely due to chronic changes. Multiple old right rib fractures. There is no demonstrated abnormality of the visualized soft tissue structures of the upper abdomen. RAD/Chest 1 View (Portable) IMPRESSION: Stable coarse interstitial lung markings likely due to chronic lung changes. No significant radiographic changes. Electronically Signed: Jeet Rowley, at 5:20 EDT Tel , Service support ,
--- NOTE | 2020-01-21 04:38 | EKG12_ITS ---
Test Reason : DYSRHYTHMIA Blood Pressure : / mmHG Vent. Rate : 092 BPM Atrial Rate : 092 BPM P-R Int : 194 ms QRS Dur : 096 ms QT Int : 382 ms P-R-T Axes : 073 096 028 degrees QTc Int : 472 ms Normal sinus rhythm Biatrial enlargement Abnormal ECG Confirmed by JUANY JOSEPH ([id number]), news copy editor LUIS CAUSEY ([id number]) on 01/29/2020 7:47:46 AM Referred By: VERNON Confirmed By:JUANY JOSEPH
--- NOTE | 2020-01-21 04:53 | ED.DCSUM_ITS ---
- ER Visit Summary Date of Service: 01/21/20 Chief Complaint: [Nausea and vomiting] History of Present Illness: The patient is a 54 F [presents to the emergency department complaint of nausea and vomiting that started this evening. Patient states that she is thrown up twice. She denies any abdominal pain. Patient also states that she feels short of breath. Patient denies urinary symptoms. She denies fever. Patient had recent visit to the emergency department yesterday for a mental status change and psychomotor agitation thought to be due to illicit drug use possibly. Patient's thinks that perhaps patient may have taken too much of her medicine. She does have history of chronic pain and is on opiates. Patient also has a colostomy and she does not have a bag over her colostomy at this time.] Patient denies any chest pain. Physical Examination: [HEENT-PERRLA, EOMI. Cranial nerves II through XII grossly intact. TMs clear. Mucous membranes moist. No adenopathy. Cardiovascular-regular rate and rhythm without murmur or ectopy Lungs-coarse breath sounds bilaterally with some faint expiratory wheezes noted bilaterally. Patient has some mild tachypnea. No accessory muscle use or retractions. Abdomen-normoactive bowel sounds, soft, nontender, no rebound or rigidity, no peritoneal signs. Extremities-intact ?4, normal range of motion, normal pulses, atraumatic.] Test Results: [EKG obtained on arrival showed a sinus rhythm with a ventricular rate of 92 bpm with no acute ST segment changes. CBC with differential showed a white count of 29.9, hemoglobin 12.4, hematocrit 37, platelet 265. Lactate was 2.1. Chest x-ray showed chronic changes otherwise nothing acute. CT scan of the abdomen pelvis showed nothing acute. Urinalysis ordered and pending. Chemistries ordered and pending.] Patient had CT scan of the head 24 hours ago and was unremarkable. I do not feel further imaging of her brain was indicated. Emergency Department Course and Treatment: [IV line established. Patient was given normal saline. Patient was given Tylenol for complaint of neck pain that developed while in the department.] Patient quite inappropriate at times in the department attempting to run her fingers through my hair. Patient states that she needs to urinate and then cannot urinate. She will go from sleeping comfortably to screaming that she needs to pee and that her neck hurts. I attempted to contact patient's however when I call the phone number a message states that he is not taking calls at this time. Treatment Plan: [Care of patient turned over the morning physician awaiting lab results and final disposition.] Disposition: [Pending] Impression: [Nausea and vomiting Mental status change-etiology uncertain] This note was generated with Padlet dictation software. It may contain incorrect words, spelling, and punctuation that were not noted in review of the chart prior to signing <Suri Beckham - Last Filed: 01/21/20 07:50> - ER Visit Summary Date of Service: 01/21/[address] Wolfe dictating an addendum to the visit 01/21/2020 The patient was seen by the evening physicians I was asked to reassess her, her chemistry panel is generally unremarkable, she has chronic elevation of the white blood cell count, her lactate was 2.1, her UA and tox screen are unremarkable On reevaluation her vital signs are unremarkable she is awake and alert moving all 4 extremities she is screaming that she wants to be released to go home she denies any complaints, I spoke with Dr. John Sears her physician we discussed her ED evaluation her recent visits to the emergency department Dr. Sears reports that he and the family have been trying to work on a coordinated care plan for the patient the patient's been rather noncompliant, there is been reluctance on the part of the patient follow-up with mental health services, psychiatry, pain management clinical social worker, she is inconsistent with use of her medications, recently her narcotic medications have been reduced or stopped pending her transfer of pain management care to pain management. There was a family meeting yesterday to discuss all of the above and the plan is in progress. At this time Dr. Sears agrees the patient be discharged to follow-up with him today in the office if she wishes to discuss her ongoing care needs. I discussed all of this with the patient she does recognize the need to follow- up with these other services to follow the plan designed by her physician and family, she has no other complaints or concerns and is comfortable with discharge and will consider following with Dr. Sears this afternoon and will return for change in symptoms Final impression nausea and vomiting resolved, multiple medical problems, history of anxiety, history of substance abuse, history of chronic pain syndrome history of noncompliance with medical management This note was generated with Padlet dictation software. It may contain incorrect words, spelling, and punctuation that were not noted in review of the chart prior to signing <Jocelyn Wolfe - Last Filed: 01/21/20 08:34> ED Disposition <Suri Beckham - Last Filed: 01/21/20 07:50> <Jocelyn Wolfe - Last Filed: 01/21/20 08:34> - Plan for ED Patient: Referrals: John Sears MD [Primary Care Provider] -
[2020-01-21] MEDS: 0.9% Normal Saline 1,000 ML 1000 ML IV (05:02)
[2020-01-21] MEDS: Ondansetron 4 MG/2 ML Vial IV (05:03)
[2020-01-21 05:10] LABS: Absolute Lymphocyte Count 2.79 X10^3/uL (0.83-4.51); Absolute Neutrophil Count 23.3 X10^3/uL (2.0-7.7); Basophil% 0.7 % (0-1); Differential Indicated SCAN CRITERIA MET; Eosinophil# 0.04 X10^3/uL; Eosinophils% 0.1 % (0-5); Hematocrit 37.6 % (37-47); Hemoglobin 12.4 g/dL (12.0-15.0); Lymphocyte # 2.79 X10^3/ul (4.0); Lymphocyte % 9.3 % (19-41); Mean Corpuscular Hgb 26.8 pg (27.0-32.0); Mean Corpuscular Volume 81.2 fL (81-99); Mean Platelet Vol. 9.7 fl (6.2-12.0); Monocyte# 3.27 X10^3/uL; Monocyte% 10.9 % (0-10); NRBC Flagged by Analyzer 0.3 % (0-5); Neutrophil # 23.34 X10^3/uL (2.7-7.7); POSITIVE DIFFERENTIAL YES; Platelet Count 265 K/mm3 (150-450); RBC Distribution Width SD 53.3 fl (35.1-43.9); Red Blood Count 4.63 M/mm3 (4.2-5.4); White Blood Count 29.9 K/mm3 (4.4-11.0)
[2020-01-21 05:14] VITALS: PULSE 85; RESP 24
[2020-01-21] MEDS: Ipratropium/Albuterol Sulfate 3 ML AMPUL.NEB INHALATION (05:14)
--- NOTE | 2020-01-21 05:25 | CT_ITS ---
STUDY: CT ABDOMEN AND PELVIS WITHOUT CONTRAST REASON FOR EXAM: Female, 54 years old. ABDOMINAL PAIN AND VOMITING. 3 FOOT COLON REMOVED FOR SBO. OSTOMY. SARCOIDOSIS RADIATION DOSAGE (If Supplied By Facility): CTDIvol = ( 6.05 ) mGy, DLP = ( 269.13 ) mGycm TECHNIQUE: Transaxial images were obtained from the dome of the diaphragm to the symphysis pubis without oral contrast, and without intravenous contrast. Sagittal and coronal images were reconstructed. Individualized dose optimization techniques were used for this CT. COMPARISON: None. FINDINGS: There are chronic fibrotic and cystic changes at the lung bases. The visualized portions of the heart are within normal limits. Normal liver. Normal gallbladder and extrahepatic biliary system. Normal spleen. Normal pancreas. Normal bilateral adrenal glands. Normal right kidney. Normal left kidney. Normal visualized stomach. Normal small intestine. There is a RIGHT lower quadrant colostomy. There is NO obstruction. There is NO appendix. Normal abdominal aorta. Normal inferior vena cava. Normal retroperitoneum. Normal urinary bladder. Uterus is intact. There is NO ascites, free air, abscess or adenopathy. Normal abdominal wall. Normal osseous structures. CT/Abdomen/Pelvis without Cont IMPRESSION: NO bowel obstruction is identified. There is RIGHT lower quadrant colostomy. Electronically Signed: Ede Harris MD at 6:08 EDT , Service support ,
[2020-01-21 05:38] LABS: Differential Comment SCANNED
[2020-01-21 06:02] VITALS: BP 134/91; PULSE 82; RESP 16; O2SAT 96
[2020-01-21 06:20] LABS: Bedside Glucose 122 mg/dL (70-110)
[2020-01-21 06:44] LABS: Lactic Acid 2.1 mmol/L (0.4-1.9)
[2020-01-21] MEDS: Acetaminophen 325 MG Tablet 650 MG PO (07:28)
[2020-01-21 07:48] LABS: ALB/GLOB Ratio 0.8 RATIO (0.9-2.4); AST(SGOT) 45 U/L (15-37); Alanine Aminotransfer ALT/SGPT 19 U/L (13-56); Albumin, Serum 2.9 g/dL (3.2-5.0); Alkaline Phosphatase 114 U/L (45-117); Anion Gap 10 (5-15); BUN 22 mg/dL (7-18); BUN/Creat Ratio 13.8 RATIO (10-20); Calcium,Total 8.4 mg/dL (8.5-10.1); Chloride 115 mmol/L (98-107); Creatinine, Serum 1.59 mg/dL (0.55-1.02); EST Glomerular Filtration Rate 36 mL/min (>60); Est Glom Filt Rate - Afr Amer 44 mL/min (>60); Estimated Creatinine Clearance 29.05 ml/min; Globulin 3.8 g/dL (2.2-4.2); Glucose 108 mg/dL (74-106); Lipase 45 U/L (73-393); Potassium 3.1 mmol/L (3.5-5.1); Protein, Total 6.7 g/dL (6.4-8.2); Sodium Level 145 mmol/L (136-145)
[2020-01-21 07:56] LABS: Mucous, Urine 0 SEEN /hpf (<or=2+); White Blood Cells 0 SEEN /hpf (0-5)
[2020-01-21 07:58] LABS: Color, Urine Yellow (Yellow); Glucose, Dipstick Normal (Normal); Ketone-Dipstick 15 mg/dl (Negative); Leukocyte Esterase-Dipstick Negative /ul (Negative); Nitrite-Dipstick Negative (Negative); Occult Blood-Urine 50 /ul (Negative); Protein-Dipstick 30 mg/dl (Negative); Specific Gravity, Urine 1.015 (1.002-1.030); Urine Bilirubin Dipstick Negative (Negative); Urine Clarity Sl. Cloudy (Clear); Urine Urobilinogen Normal (Normal)
[2020-01-21 08:04] LABS: Bacteria 1+ /hpf (None Seen); Red Blood Cells-Urine 0-5 SEEN /hpf (0-5); Squamous Epithelial Cells - UA 0-5 SEEN /hpf (5-10)
[2020-01-21 08:09] LABS: Amphetamine Urine VISTA NEGATIVE (<1000 ng/mL); Barbiturate Urine VISTA NEGATIVE (< 200 ng/mL); Benzodiazepine Urine VISTA NEGATIVE (< 200 ng/mL); Cocaine Urine VISTA NEGATIVE (< 300 ng/mL); Ecstacy Urine VISTA NEGATIVE (< 500 ng/mL); Methadone Urine VISTA NEGATIVE (< 300 ng/mL); PCP Urine VISTA NEGATIVE (< 25 ng/mL); THC Urine VISTA NEGATIVE (< 50 ng/mL); Vista UDS pH Range 5
--- NOTE | 2020-01-21 08:34 | ED.DEP ---
ED Disposition - Plan for ED Patient: Diagnosis: Sarcoidosis, Chronic pain Instructions: ED Pain Management Chronic Referrals: John Sears MD [Primary Care Provider] - Additional Instructions: Please follow the outpatient treatment plan designed by your family and physician, consider seeing Dr. John Sears today in the office for further instructions
[2020-01-21 09:28] LABS: Reflex Lactate? Y
[2020-01-21 09:33] VITALS: BP 138/72; PULSE 84; RESP 16; O2SAT 98
[2020-01-21 12:31] LABS: Pathologist Review Reviewed
== END 2020-01-21 09:43 | disposition home or self-care (01) ==
LOC: ED 04:51
PROVIDERS: Emergency Provider Emergency Medicine; PCP Family Medicine
DX: R11.2 Nausea with vomiting, unspecified (principal); R19.7 Diarrhea, unspecified; R41.82 Altered mental status, unspecified; M54.2 Cervicalgia; G89.4 Chronic pain syndrome; J44.9 Chronic obstructive pulmonary disease, unspecified; D86.9 Sarcoidosis, unspecified; I10 Essential (primary) hypertension; F41.9 Anxiety disorder, unspecified; Z93.3 Colostomy status; Z91.19 Patient's noncompliance with other medical treatment and regimen
CPT/HCPCS: 71045; 74176; 80053; 80307; 81001; 82962; 83605; 83690; 84484; 85025; 87493; 93005; 94640; 96361; 96374; 99285; J7030; A4216; J2405

== ENCOUNTER → 2020-01-21 12:41 | Outpatient (CLI) | payer MEDICARE, MEDICAID, SELFPAY ==
[2020-01-21 04:28] VITALS: BMI 21.7
== END ==
PROVIDERS: PCP Family Medicine; Referring Provider Family Medicine; Visit Provider Family Medicine
DX: R19.7 Diarrhea, unspecified (principal)
CPT/HCPCS: 87493

== ENCOUNTER → 2020-02-05 15:45 | Outpatient (CLI) | payer MEDICARE, MEDICAID, SELFPAY ==
[2020-01-21 04:28] VITALS: BMI 21.7
--- NOTE | 2020-02-05 15:52 | RAD_ITS ---
STUDY: X-RAY - THORACIC SPINE REASON FOR EXAM: Female, 54 years old. CHRONIC BACK PAIN TECHNIQUE: 3 view(s) of the thoracic spine were obtained. COMPARISON: None. FINDINGS: Normal kyphosis of the thoracic spine. There is no substantial scoliosis. Normal thoracic vertebrae and endplates. Normal disc space heights. The soft tissue structures are unremarkable. There are possibly fibrotic changes in the lungs, refer to chest imaging. RAD/Thoracic Spine 2 Views IMPRESSION: Unremarkable x-ray examination of the thoracic spine. Pulmonary findings, refer to chest imaging. Electronically Signed: Matt Velasquez, at 20:43 EDT Tel , Service support ,
--- NOTE | 2020-02-05 15:52 | RAD_ITS ---
STUDY: X-RAY - LUMBAR SPINE REASON FOR EXAM: Female, 54 years old. CHRONIC BACK PAIN TECHNIQUE: 3 view(s) of the lumbar spine were obtained. COMPARISON: None FINDINGS: Normal lumbar lordosis. There is no substantial scoliosis. There is a normal alignment of the vertebrae. Normal vertebral bodies and endplates. There is L5-S1 disc degeneration. The soft tissue structures are unremarkable. There is abnormal reticular pattern in the lungs, incompletely characterized. RAD/Lumbar Spine 2 or 3 Views IMPRESSION: 1. L5-S1 disc degeneration, otherwise unremarkable. 2. Abnormal lung bases, refer to chest imaging. Electronically Signed: Matt Velasquez, at 17:11 EDT Tel , Service support ,
--- NOTE | 2020-02-05 15:53 | RAD_ITS ---
STUDY: X-RAY - BILATERAL RIBS REASON FOR EXAM: Female, 54 years old. LEFT POSTERIOR RIB PAIN, COUGH TECHNIQUE: 6 view(s) of the ribs. COMPARISON: 21 January 2020 FINDINGS: There is no acute fracture. There are remote right posterolateral rib fractures. Lungs are emphysematous with superimposed fibrotic scarring change and possible bronchiectasis. There is no pneumothorax. There is mild cardiomegaly. Appearance is similar to prior. RAD/Ribs Bilat 3V No CXR IMPRESSION: 1. No acute fractures. 2. Remote right posterior healed fractures. 3. Stable pulmonary disease Electronically Signed: Matt Velasquez, at 21:06 EDT Tel , Service support ,
== END ==
PROVIDERS: PCP Family Medicine; Referring Provider Anesthesiology Pain Medicine; Visit Provider Anesthesiology Pain Medicine
DX: S22.39XA Fracture of one rib, unspecified side, initial encounter for closed fracture (principal); M54.5 Low back pain; M54.6 Pain in thoracic spine
CPT/HCPCS: 71110; 72070; 72100

== ENCOUNTER → 2020-02-26 17:35 | Outpatient (CLI) | payer MEDICARE, MEDICAID, SELFPAY ==
[2020-02-25 08:14] VITALS: BMI 21.7
== END ==
PROVIDERS: PCP Family Medicine; Visit Provider Nurse Practitioner Acute Care
DX: Z11.59 Encounter for screening for other viral diseases (principal); J44.9 Chronic obstructive pulmonary disease, unspecified; R05 Cough
CPT/HCPCS: 87635; G2023; U0003

== ENCOUNTER 2020-03-14 10:00 | Emergency (ER) | payer MEDICARE, MEDICAID, SELFPAY ==
[2020-02-25 08:14] VITALS: BMI 21.7
[2020-03-14 10:02] VITALS: BP 164/143; PULSE 116; RESP 22; TEMP 36.6; O2SAT 97; BMI 18.8
[2020-03-14 10:12] VITALS: BP 164/143; PULSE 116; PULSE 117; RESP 22; TEMP 36.6; O2SAT 95; O2SAT 97
--- NOTE | 2020-03-14 10:30 | ED.VIS.GEN ---
History of Present Illness Informant: Patient Onset: Yesterday Context: Gradual Onset Timing: Continuous Quality: nausea Location: abdomen Current Severity: Severe Maximum Severity: Severe Worsened by: food Relieved by: nothing Associated Symptoms: chronic loss of appettite Narrative: 54-year-old female history of sarcoidosis, bronchiectasis, COPD, presents to emergency department by squad secondary to nausea chronic loss of appetite and fatigue. No vomiting. She has an ileostomy. She has not noticed increased output. She is not lightheaded or dizzy. No chest pain or shortness of breath. Chronic cough not worse than her baseline. No fevers. No hemoptysis. Negative coronavirus test 2 weeks ago. No sick contacts. Prior similar symptoms: Yes Recent Illness/Hospitalization: No <Baldo Dill - Last Filed: 03/14/20 11:47> <Silverio Desouza - Last Filed: 03/14/20 14:26> Chief Complaint: Abd Pain Past Medical History Prior records reviewed: Yes Past Medical History: - - Hypertension, COPD, bronchiectasis, sarcoidosis, ileostomy Surgical History: - - Bilateral tubal ligation. lung biopsy , colostomy with bowel resection Smoking Status: Never smoker - Family History Maternal Family History: Reports: Diabetes, Hypertension, Stroke Paternal Family History: Reports: Stroke <Baldo Dill - Last Filed: 03/14/20 11:47> <Silverio Desouza - Last Filed: 03/14/20 14:26> - Allergies and Home Meds Allergies/Adverse Reactions: Allergies cephalexin monohydrate [From Keflex] Allergy (Mild, Verified 02/25/20 09:24) Itching doxycycline Adverse Reaction (Verified 02/25/20 09:24) Vomiting moxifloxacin HCl [From Avelox] Adverse Reaction (Verified 02/25/20 09:24) Vomiting Primary Care Physician: John Sears MD [Primary Care Provider] - Review of Systems All systems negative except as indicated General: Reports: Malaise. Denies: Chills, Fever, Sweats Eyes: Denies: Visual changes - bilaterally, Diplopia ENT: Denies: Rhinorrhea, Sore throat Cardiovascular: Denies: Chest pain, Palpitations Respiratory: Denies: Dyspnea, Cough, Dyspnea on exertion Gastrointestinal: Reports: Nausea. Denies: Abdominal pain, Vomiting, Diarrhea, Constipation, Melena, Hematochezia Genitourinary: Denies: Dysuria, Hematuria, Frequency Musculoskeletal: Denies: Back pain, Extremity Pain Skin: Denies: Rash, Abscess, Abrasions, Wounds Neurological: Denies: Headache, Weakness, Numbness <Baldo Dill - Last Filed: 03/14/20 11:47> Physical Exam Vital Signs/Narrative: Vital Signs Temp Pulse Resp BP Pulse Ox 03/14/20 10:12 97.8 F 116 H 22 H 164/143 H 97 03/14/20 10:02 97.8 F 116 H 22 H 164/143 H 97 Inital Vital Signs reviewed: Yes General: Well nourished, Well developed, No Acute Distress Head: Normocephalic, Atraumatic Eyes: Perrl, EOMI ENT: Moist mucous membranes, No rhinorrhea Neck: Supple, Nontender Cardiovascular: Regular rate, Regular rhythm, No murmurs Respiratory: No distress, CTA bilaterally, Chest nontender Abdomen: Soft, Nontender, Nondistended, Normal bowel sounds, - - Ileostomy in place Back: Nontender, Normal Inspection Extremities: Nontender, No edema Skin: Normal color, No rash Neurological: Alert, Oriented x3, Cranial nerves II-XII grossly intact, Normal Strength, Normal Sensation Psychological: Normal affect, Normal Mood <Baldo Dill - Last Filed: 03/14/20 11:47> Vital Signs/Narrative: Vital Signs Resp BP 03/14/20 12:12 17 149/99 H <DeoSilverio - Last Filed: 03/14/20 14:26> Diagnostic/Tx/Re-eval - Medical Decision Making Patient presented with multiple complaints, her vital signs are stable overall she appeared well her abdomen was soft and nontender patient tolerating by mouth at this time. The patient was requesting narcotics multiple occasions and I told her with her symptoms we did not feel they were indicated and therefore she asked to be discharged. She had refused Bentyl that we had ordered her for abdominal pain and cramping. She refused Zofran as well for her nausea. Her laboratory work-up did show a unremarkable BMP other than a sodium of 135 and her CBC was remarkable for white blood cell count of 26. She has been on steroids, prednisone, over the past week. She also finished a course of Augmentin 2 days ago. At this time we will send stool culture but we do not feel the patient requires imaging or admission. Again on multiple serial evaluations her abdomen is soft and nontender she is able to tolerate by mouth her vital signs are stable and we will discharge her home with prescriptions for Bentyl and Zofran <ChristyBaldo prieto - Last Filed: 03/14/20 11:47> - Medical Decision Making Patient is a middle-age woman who presents with chief complaint of rumbling abdominal pain and watery output from ileostomy. She denies fever, chills night sweats. She does report increased thirst. She denies cardiac respiratory symptoms. She states the pain is most severe near the ileostomy site. Patient is a thin middle-aged woman who appears in no distress. HEENT exam is unremarkable. Lungs are clear auscultation. Heart is regular without murmur, gallop or rub. There is liquid content in the ileostomy bag. Work-up was undertaken to assess for electrolyte abnormality, acute kidney injury and anemia. Patient's white count is elevated. This may be due to the fact that she is on high-dose steroids and the presumed viral infection. Patient was offered Bentyl which she refused. She asked to speak with the medical provider. When she was informed that she would receive nothing more than Bentyl she states she is ready to go home. <Silverio Desouza - Last Filed: 03/14/20 14:26> ED Disposition <Baldo Dill - Last Filed: 03/14/20 11:47> <Silverio Desouza - Last Filed: 03/14/20 14:26> - Plan for ED Patient: Disposition: Home or Assisted Living Diagnosis: Abdominal pain, Nausea & vomiting, COPD (chronic obstructive pulmonary disease), Chronic pain, Sarcoidosis, Leukocytosis Instructions: ED Abdominal Pain Unkn Cause Fem, ED Vomiting and Diarrhea Nonspecific Adult Prescriptions: Dicyclomine HCl [Bentyl] 20 mg PO TIDAC #20 cap Prescription Printed Melatonin 5 mg PO QHS #10 cap Prescription Printed Ondansetron [Zofran Odt] 4 mg PO Q8H PRN PRN #10 tab PRN Reason: Nausea Prescription Printed Referrals: John Sears MD [Primary Care Provider] -
[2020-03-14 10:33] LABS: Absolute Lymphocyte Count 2.04 X10^3/uL (0.83-4.51); Absolute Neutrophil Count 21.3 X10^3/uL (2.0-7.7); Basophil# 0.14 X10^3/uL; Basophil% 0.5 % (0-1); Eosinophil# 0.12 X10^3/uL; Eosinophils% 0.5 % (0-5); Hematocrit 41.3 % (37-47); Hemoglobin 13.9 g/dL (12.0-15.0); Lymphocyte # 2.04 X10^3/ul (4.0); Lymphocyte % 7.9 % (19-41); Mean Corp Hgb Conc 33.7 g/dL (32-36); Mean Corpuscular Volume 83.3 fL (81-99); Mean Platelet Vol. 9.6 fl (6.2-12.0); Monocyte# 2.14 X10^3/uL; Monocyte% 8.2 % (0-10); NRBC Flagged by Analyzer 0.2 % (0-5); Neutrophil # 21.34 X10^3/uL (2.7-7.7); Neutrophil % 82.1 % (47-70); POSITIVE DIFFERENTIAL YES; POSITIVE MORPHOLOGY YES; Platelet Count 433 K/mm3 (150-450); RBC Distribution Width CV 21.8 % (11.6-14.6); RBC Distribution Width SD 55.3 fl (35.1-43.9); Red Blood Count 4.96 M/mm3 (4.2-5.4)
[2020-03-14 10:39] LABS: Differential Indicated SCAN CRITERIA MET
[2020-03-14] MEDS: 0.9% Normal Saline 1,000 ML 999 ML IV (11:05)
[2020-03-14] MEDS: Ondansetron 4 MG/2 ML Vial IV (11:07)
[2020-03-14 11:08] LABS: Platelet Estimate ADEQUATE (ADEQ); Red Cell Morphology N CYTIC NORMAL (NORM C&C); Target Cells 1+
[2020-03-14 11:28] LABS: Anion Gap 9 (5-15); BUN 21 mg/dL (7-18); BUN/Creat Ratio 18.3 RATIO (10-20); Calcium,Total 9.4 mg/dL (8.5-10.1); Chloride 103 mmol/L (98-107); Creatinine, Serum 1.15 mg/dL (0.55-1.02); EST Glomerular Filtration Rate 52 mL/min (>60); Est Glom Filt Rate - Afr Amer 63 mL/min (>60); Estimated Creatinine Clearance 41.23 ml/min; Glucose 86 mg/dL (74-106); Sodium Level 135 mmol/L (136-145)
[2020-03-14 11:53] LABS: Lactic Acid 2.7 mmol/L (0.4-1.9)
[2020-03-14 12:12] VITALS: BP 149/99; RESP 17
[2020-03-14 15:11] LABS: Reflex Lactate? Y
[2020-03-15 12:59] LABS: Pathologist Review Reviewed
== END 2020-03-14 12:15 | disposition home or self-care (01) ==
PROVIDERS: Emergency Provider Physician Assistant Medical; PCP Family Medicine
DX: R10.9 Unspecified abdominal pain (principal); D86.9 Sarcoidosis, unspecified; J44.9 Chronic obstructive pulmonary disease, unspecified; G89.29 Other chronic pain; R11.2 Nausea with vomiting, unspecified; Z93.2 Ileostomy status
CPT/HCPCS: 80048; 83605; 85025; 87493; 96361; 96374; 99285; J7030; A4216; J2405

== ENCOUNTER 2020-03-15 16:23 | Emergency (ER) | payer MEDICARE, MEDICAID, SELFPAY ==
[2020-03-14 10:02] VITALS: BMI 18.8
[2020-03-15 16:30] VITALS: BP 120/70; PULSE 120; RESP 16; TEMP 36.7; O2SAT 98; BMI 21.7
--- NOTE | 2020-03-15 18:45 | CT_ITS ---
STUDY: CT ABDOMEN AND PELVIS WITH CONTRAST REASON FOR EXAM: Female, 54 years old. NAUSEA, ABD PAIN, CONGESTION. Hx of colostomy, small bowel resection d/t obstruction, asthma, sarcoid, COPD and HTN RADIATION DOSAGE (If Supplied By Facility): CTDIvol = ( 4.28 ) mGy, DLP = ( 222.81 ) mGycm TECHNIQUE: Transaxial images were obtained from the dome of the diaphragm to the symphysis pubis with oral contrast. Oral and amp; IV Gastrografin and amp; 75mL Isovue-370 was administered. Sagittal and coronal images were reconstructed. Individualized dose optimization techniques were used for this CT. COMPARISON: CT of abdomen and pelvis dated JANUARY 21 2020 FINDINGS: Moderate to significant bronchiectasis and cystic changes of the lungs reidentified. Chronic fibrotic changes of the lung bases also noted. Diffusely heterogeneous/mottled appearance is seen throughout the liver parenchyma. No intrahepatic biliary duct dilatation or liver mass. Normal gallbladder and extrahepatic biliary system. Normal spleen. Normal pancreas. Normal bilateral adrenal glands. Normal right kidney. Normal left kidney. No hydronephrosis or renal masses. No large stones. The wall of the antrum of the stomach is mildly thickened. The remaining aspects of the stomach are unremarkable. Normal small intestine. Right anterior abdominal wall colostomy. Unremarkable colonic loops. No bowel dilatation or obstruction. No free air or free fluid. There are surgical clips in the region of the appendix consistent with a prior appendectomy. There is diffuse atherosclerotic calcification of the abdominal aorta, without a demonstrated aneurysm. Normal inferior vena cava. Normal retroperitoneum. Normal urinary bladder. Unremarkable uterus. Normal abdominal wall. There are diffuse degenerative changes of the visualized lumbar spine. CT/Abdomen/Pelvis WITH Contrast IMPRESSION: 1. The wall of the antrum of the stomach is mildly thickened. The remaining aspects of the stomach are unremarkable. 2. Right anterior abdominal wall colostomy. Unremarkable colonic loops. 3. No bowel dilatation or obstruction. No free air or free fluid. Electronically Signed: Jose G Erickson MD at 21:59 EDT , Service support ,
[2020-03-15] MEDS: Morphine 4 MG/ML Syringe IV ×2 (19:14→21:35)
[2020-03-15] MEDS: Ondansetron 4 MG/2 ML Vial IV (19:14)
[2020-03-15 19:17] LABS: Absolute Lymphocyte Count 1.71 X10^3/uL (0.83-4.51); Absolute Neutrophil Count 24.9 X10^3/uL (2.0-7.7); Basophil# 0.13 X10^3/uL; Basophil% 0.4 % (0-1); Eosinophil# 0.01 X10^3/uL; Hematocrit 38.7 % (37-47); Hemoglobin 13.3 g/dL (12.0-15.0); Lymphocyte # 1.71 X10^3/ul (4.0); Lymphocyte % 5.8 % (19-41); Mean Corp Hgb Conc 34.4 g/dL (32-36); Mean Corpuscular Hgb 27.7 pg (27.0-32.0); Mean Corpuscular Volume 80.5 fL (81-99); Monocyte# 2.41 X10^3/uL; Monocyte% 8.1 % (0-10); NRBC Flagged by Analyzer 0.2 % (0-5); Neutrophil # 24.91 X10^3/uL (2.7-7.7); Neutrophil % 84.2 % (47-70); POSITIVE DIFFERENTIAL YES; Platelet Count 463 K/mm3 (150-450); RBC Distribution Width CV 18.4 % (11.6-14.6); RBC Distribution Width SD 50.4 fl (35.1-43.9); Red Blood Count 4.81 M/mm3 (4.2-5.4); White Blood Count 29.6 K/mm3 (4.4-11.0)
[2020-03-15] MEDS: 0.9% Normal Saline 1,000 ML 1000 ML IV (19:20)
[2020-03-15 19:23] LABS: Differential Indicated SCAN CRITERIA MET
[2020-03-15 19:29] VITALS: BP 138/98; PULSE 119; RESP 25; O2SAT 96
[2020-03-15 19:35] LABS: ALB/GLOB Ratio 0.4 RATIO (0.9-2.4); AST(SGOT) 41 U/L (15-37); Alanine Aminotransfer ALT/SGPT 15 U/L (13-56); Albumin, Serum 2.7 g/dL (3.2-5.0); Alkaline Phosphatase 255 U/L (45-117); Anion Gap 10 (5-15); BUN 27 mg/dL (7-18); BUN/Creat Ratio 19.6 RATIO (10-20); Calcium,Total 9.3 mg/dL (8.5-10.1); Chloride 106 mmol/L (98-107); Creatinine, Serum 1.38 mg/dL (0.55-1.02); EST Glomerular Filtration Rate 42 mL/min (>60); Est Glom Filt Rate - Afr Amer 51 mL/min (>60); Estimated Creatinine Clearance 35.17 ml/min; Globulin 6.2 g/dL (2.2-4.2); Glucose 78 mg/dL (74-106); Lipase 143 U/L (73-393); Potassium 5.4 mmol/L (3.5-5.1); Protein, Total 8.9 g/dL (6.4-8.2); Sodium Level 134 mmol/L (136-145)
[2020-03-15 19:46] LABS: Differential Comment SCANNED
[2020-03-15 20:53] LABS: Bacteria 0 SEEN /hpf (None Seen); Mucous, Urine 0 SEEN /hpf (<or=2+); Red Blood Cells-Urine 0 SEEN /hpf (0-5)
[2020-03-15 20:55] LABS: Color, Urine Yellow (Yellow); Glucose, Dipstick Normal (Normal); Ketone-Dipstick 50 mg/dl (Negative); Leukocyte Esterase-Dipstick 25 /ul (Negative); Nitrite-Dipstick Negative (Negative); Occult Blood-Urine Negative /ul (Negative); Protein-Dipstick 100 mg/dl (Negative); Urine Bilirubin Dipstick Negative (Negative); Urine Clarity Clear (Clear); Urine Urobilinogen Normal (Normal)
[2020-03-15 21:09] LABS: Hyaline Cast 0-5 SEEN /lpf (0-5); Squamous Epithelial Cells - UA 0-5 SEEN /hpf (5-10); White Blood Cells 0-5 SEEN /hpf (0-5)
[2020-03-15 21:21] VITALS: BP 142/75; PULSE 115; RESP 16; O2SAT 98
[2020-03-15] MEDS: 0.9% Normal Saline 1,000 ML 125 ML IV (21:34)
--- NOTE | 2020-03-15 22:40 | ED.VIS.GEN ---
History of Present Illness Chief Complaint: Abd Pain Informant: Patient Narrative: Patient presents the emergency department for the evaluation of abdominal pain. She states that symptoms have gotten progressively worse throughout the day. 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 She states she has a history of reflux and is out of her medication cannot tell me what that medication is. She is due to see her primary care physician in 3 days. She notes continued output in the colostomy bag. No vomiting. No radiation to the back. No urinary symptoms or fever. Past Medical History - Allergies and Home Meds Allergies/Adverse Reactions: Allergies cephalexin monohydrate [From Keflex] Allergy (Mild, Verified 03/15/20 19:29) Itching doxycycline Adverse Reaction (Verified 03/15/20 19:29) Vomiting moxifloxacin HCl [From Avelox] Adverse Reaction (Verified 03/15/20 19:29) Vomiting Primary Care Physician: John Sears MD [Primary Care Provider] - Keep [facility] appointment Surgical History: - - Bilateral tubal ligation. lung biopsy , colostomy with bowel resection Smoking Status: Former smoker - Family History Maternal Family History: Reports: Diabetes, Hypertension, Stroke Paternal Family History: Reports: Stroke Review of Systems General: Denies: Chills, Fever, Sweats Eyes: Denies: Visual changes - bilaterally, Diplopia ENT: Denies: Rhinorrhea, Sore throat Cardiovascular: Denies: Chest pain, Palpitations Respiratory: Denies: Dyspnea, Cough, Dyspnea on exertion Gastrointestinal: Reports: Abdominal pain, Nausea. Denies: Vomiting, Diarrhea, Melena, Hematochezia Genitourinary: Denies: Dysuria, Hematuria, Frequency Musculoskeletal: Denies: Back pain, Extremity Pain Skin: Denies: Rash, Wounds Neurological: Denies: Headache, Weakness, Numbness Physical Exam Vital Signs/Narrative: Vital Signs Pulse Resp BP Pulse Ox 03/15/20 21:21 115 H 16 142/75 H 98 03/15/20 19:29 119 H 25 H 138/98 H 96 Inital Vital Signs reviewed: Yes General: Well nourished, Well developed, No Acute Distress Head: Normocephalic, Atraumatic Eyes: Perrl, EOMI ENT: Moist mucous membranes, No rhinorrhea Neck: Supple, Nontender Cardiovascular: Regular rate, Regular rhythm, No murmurs Respiratory: No distress, CTA bilaterally, Chest nontender Abdomen: Soft, Nondistended, Normal bowel sounds, Tender - Out of proportion to examination there is a colostomy bag present with stool inside. Back: Nontender, Normal Inspection Extremities: Nontender, No edema Skin: Normal color, No rash Neurological: Alert, Oriented x3, Cranial nerves II-XII grossly intact, Normal Strength, Normal Sensation Psychological: Normal affect, Normal Mood Diagnostic/Tx/Re-eval Clinical Impression(s) from Imaging Studies Abdomen/Pelvis CT 03/15/20 18:45 IMPRESSION: 1. The wall of the antrum of the stomach is mildly thickened. The remaining aspects of the stomach are unremarkable. 2. Right anterior abdominal wall colostomy. Unremarkable colonic loops. 3. No bowel dilatation or obstruction. No free air or free fluid. Electronically Signed: Jose G Erickson MD at 21:59 EDT , Service support , Laboratory Last Values WBC 29.6 K/mm3 (4.4-11.0) H 03/15/20 19:00 RBC 4.81 M/mm3 (4.2-5.4) 03/15/20 19:00 Hgb 13.3 g/dL (12.0-15.0) 03/15/20 19:00 Hct 38.7 % (37-47) 03/15/20 19:00 MCV 80.5 fL (81-99) L 03/15/20 19:00 MCH 27.7 pg (27.0-32.0) 03/15/20 19:00 MCHC 34.4 g/dL (32-36) 03/15/20 19:00 RDW Std Deviation 50.4 fl (35.1-43.9) H 03/15/20 19:00 RDW Coeff of Mary 18.4 % (11.6-14.6) H 03/15/20 19:00 Plt Count 463 K/mm3 (150-450) H 03/15/20 19:00 MPV 9.0 fl (6.2-12.0) 03/15/20 19:00 Immature Gran % (Auto) 1.500 % (0.0-0.9) H 03/15/20 19:00 Neut % (Auto) 84.2 % (47-70) H 03/15/20 19:00 Lymph % (Auto) 5.8 % (19-41) L 03/15/20 19:00 [place] % (Auto) 8.1 % (0-10) 03/15/20 19:00 Eos % (Auto) 0.0 % (0-5) 03/15/20 19:00 Baso % (Auto) 0.4 % (0-1) 03/15/20 19:00 Absolute Neuts (auto) 24.9 X10^3/uL (2.0-7.7) H 03/15/20 19:00 Absolute Lymphs (auto) 1.71 X10^3/uL (0.83-4.51) 03/15/20 19:00 Nucleated RBC % 0.2 % (0-5) 03/15/20 19:00 Differential Comment SCANNED 03/15/20 19:00 Diff Path Review December03/15/20 19:00 Sodium 134 mmol/L (136-145) L 03/15/20 19:00 Potassium 5.4 mmol/L (3.5-5.1) H 03/15/20 19:00 Chloride 106 mmol/L (98-107) 03/15/20 19:00 Carbon Dioxide 18.0 mmol/L (21.0-32.0) L 03/15/20 19:00 Anion Gap 10 (5-15) 03/15/20 19:00 BUN 27 mg/dL (7-18) H 03/15/20 19:00 Creatinine 1.38 mg/dL (0.55-1.02) H 03/15/20 19:00 Estim Creat Clear Calc 35.17 ml/min 03/15/20 19:00 Est GFR (MDRD) Af Amer 51 mL/min (>60) L 03/15/20 19:00 Est GFR (MDRD) Non-Af 42 mL/min (>60) L 03/15/20 19:00 BUN/Creatinine Ratio 19.6 RATIO (10-20) 03/15/20 19:00 Glucose 78 mg/dL (74-106) 03/15/20 19:00 Calcium 9.3 mg/dL (8.5-10.1) 03/15/20 19:00 Total Bilirubin 0.50 mg/dL (0.20-1.00) 03/15/20 19:00 AST 41 U/L (15-37) H 03/15/20 19:00 ALT 15 U/L (13-56) 03/15/20 19:00 Alkaline Phosphatase 255 U/L (45-117) H 03/15/20 19:00 Total Protein 8.9 g/dL (6.4-8.2) H 03/15/20 19:00 Albumin 2.7 g/dL (3.2-5.0) L 03/15/20 19:00 Globulin 6.2 g/dL (2.2-4.2) H 03/15/20 19:00 Albumin/Globulin Ratio 0.4 RATIO (0.9-2.4) L 03/15/20 19:00 Lipase 143 U/L (73-393) 03/15/20 19:00 Urine Color Yellow (Yellow) 03/15/20 20:45 Urine Clarity Clear (Clear) 03/15/20 20:45 Urine pH 6.0 (5.0 - 8.0) 03/15/20 20:45 Ur Specific [place] 1.020 (1.002-1.030) 03/15/20 20:45 Urine Protein 100 mg/dl (Negative) H 03/15/20 20:45 Urine Glucose (UA) Normal mg/dl (Normal) 03/15/20 20:45 Urine Ketones 50 mg/dl (Negative) H 03/15/20 20:45 Urine Occult Blood Negative /ul (Negative) 03/15/20 20:45 Urine Nitrite Negative (Negative) 03/15/20 20:45 Urine Bilirubin Negative mg/dL (Negative) 03/15/20 20:45 Urine Urobilinogen Normal mg/dl (Normal) 03/15/20 20:45 Ur Leukocyte Esterase 25 /ul (Negative) H 03/15/20 20:45 Urine RBC 0 SEEN /hpf (0-5) 03/15/20 20:45 Urine WBC 0-5 SEEN /hpf (0-5) 03/15/20 20:45 Ur Squamous Epith Cells 0-5 SEEN /hpf (5-10) 03/15/20 20:45 Urine Bacteria 0 SEEN /hpf (None Seen) 03/15/20 20:45 Hyaline Casts 0-5 SEEN /lpf (0-5) 03/15/20 20:45 Urine Mucus 0 SEEN /hpf (<or=2+) 03/15/20 20:45 - Medical Decision Making Patient has a chronic leukocytosis. CT some possible gastritis. She received a total of 8 mg of morphine. Patient informs me she is out of her acid medication. She also tells me that if I do not give her anything for pain she is going to keep coming to the emergency department until she gets it. I will write for her to have some Protonix as I do not know what she has been taking for antacid relief. ED Disposition - Plan for ED Patient: Disposition: Home or Assisted Living Diagnosis: Acute abdominal pain, Gastritis Instructions: ED Abdominal Pain Unkn Cause Fem, ED PEPTIC ULCER vs GASTRITIS Prescriptions: Pantoprazole Sodium [Protonix] 20 mg PO BID #28 tab Transmission Status: Received by [facility] Referrals: John Sears MD [Primary Care Provider] - Keep [facility] appointment
[2020-03-15 23:11] VITALS: BP 135/90; PULSE 104; RESP 15; O2SAT 98
[2020-03-15] MEDS: Pantoprazole Sodium 40 MG Tablet PO (23:12)
[2020-03-16 12:19] LABS: Pathologist Review Reviewed
== END 2020-03-15 23:42 | disposition home or self-care (01) ==
PROVIDERS: Emergency Provider Emergency Medicine; PCP Family Medicine
DX: K29.70 Gastritis, unspecified, without bleeding (principal); K21.9 Gastro-esophageal reflux disease without esophagitis; Z93.3 Colostomy status; Z79.899 Other long term (current) drug therapy; Z87.891 Personal history of nicotine dependence
CPT/HCPCS: 74177; 80053; 81001; 83690; 85025; 96361; 96374; 96375; 96376; 99285; J7030; Q9967; J2405